=== PATIENT | female | born 1950 | race Caucasian/White ===

== ENCOUNTER → 2019-12-16 09:07 | Outpatient (CLI) | payer MEDICARE, SELFPAY ==
--- NOTE | ~2019-12-16 | MM_ITS ---
EXAMINATION: MM diagnostic ziggy BI w antonio HISTORY: History of left breast cancer TECHNIQUE: Craniocaudal, mediolateral, and mediolateral oblique 3-D tomosynthesis images of the breas ts were performed and synthetic 2-D images were generated. CAD analysis was submitted and interpreted . COMPARISON: 05/19/2019, 11/13/2018, 11/09/2018 BREAST PARENCHYMAL COMPOSITION: The breasts are heterogeneously dense, which may obscure small masses . FINDINGS: Scattered benign-appearing calcifications are present. There are stable lumpectomy changes in the upper outer quadrant of the left breast. No suspicious mass, calcification, or architectural d istortion are identified. There has been no suspicious interval change. IMPRESSION: 1. Stable lumpectomy changes in the upper outer quadrant of the left breast without mammographic evid ence of malignancy. 2. Recommend routine screening mammography in one year. BI-RADS Category 2: Benign finding(s). Reviewed, dictated and finalized at location A. IMPRESSION: 1. Stable lumpectomy changes in the upper outer quadrant of the left breast wit hout mammographic evidence of malignancy. 2. Recommend routine screening mammography in one year. BI-RADS Category 2: Benign finding(s).
== END ==
DX: C50.412 Malignant neoplasm of upper-outer quadrant of left female breast (principal); Z98.890 Other specified postprocedural states
CPT/HCPCS: 77062; 77066; G0279

== ENCOUNTER → 2020-06-21 09:11 | Outpatient (CLI) | payer MEDICARE, SELFPAY ==
--- NOTE | ~2020-06-21 | MM_ITS ---
EXAMINATION: MM diagnostic ziggy LT w antonio HISTORY: Breast cancer TECHNIQUE: Additional 3-D tomosynthesis images of the left breast were performed and synthetic 2-D im ages were generated. CAD analysis was submitted and interpreted. COMPARISON: Comparison to multiple prior studies sequentially, with oldest reviewed study dated 06/2018. BREAST PARENCHYMAL COMPOSITION: The breasts are heterogenously dense, which may obscure small masses FINDINGS: . Surgical change present in the upper outer quadrant of the left breast. No new masses, ca lcifications or architectural distortion to suggest malignancy. There are scattered benign left breas t calcifications. IMPRESSION: 1. Stable left mammogram without evidence for malignancy. 2. Routine yearly screening mammogram and regular clinical breast examination are recommended. BI-RADS CATEGORY 2 - BENIGN FINDINGS Reviewed, dictated and finalized at location A. 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 Stable left mammogram without evidence for malignancy. 2. Routine yearly screening mammogram and regular clinical breast examination a re recommended. BI-RADS CATEGORY 2 - BENIGN FINDINGS
== END ==
PROVIDERS: PCP Student in an Organized Health Care Education/Training Program
DX: C50.412 Malignant neoplasm of upper-outer quadrant of left female breast (principal)
CPT/HCPCS: 77061; 77065; G0279

== ENCOUNTER → 2021-01-14 08:39 | Outpatient (CLI) | payer MEDICARE, SELFPAY ==
--- NOTE | ~2021-01-14 | MM_ITS ---
EXAMINATION: MM diagnostic ziggy BI w antonio HISTORY: Personal history of breast cancer TECHNIQUE: Additional 3-D tomosynthesis images of the breasts were performed and synthetic 2-D images were generated. CAD analysis was submitted and interpreted. COMPARISON: Comparison to multiple prior studies sequentially, with oldest reviewed study dated 10/2018. BREAST PARENCHYMAL COMPOSITION: The breasts are heterogeneously dense, which may obscure small masses . FINDINGS: There are surgical changes upper outer quadrant of the left breast, consistent with previou s lumpectomy. There are no new masses, calcifications or architectural distortion in either breast to suggest malignancy. IMPRESSION: 1. No mammographic evidence for malignancy in either breast. 2. Routine yearly screening mammogram and regular clinical breast examination are recommended. BI-RADS Category 2: Benign finding(s). Reviewed, dictated and finalized at location A. IMPRESSION: 1. No mammographic evidence for malignancy in either breast. 2. Routine yearly screening mammogram and regular clinical breast examination a re recommended. BI-RADS Category 2: Benign finding(s).
== END ==
PROVIDERS: PCP Student in an Organized Health Care Education/Training Program
DX: Z85.3 Personal history of malignant neoplasm of breast (principal)
CPT/HCPCS: 77062; 77066; G0279

== ENCOUNTER 2021-02-04 21:55 | Observation (INO) | payer MEDICARE, SELFPAY ==
--- NOTE | ~2021-02-04 | CT_ITS ---
EXAMINATION: CT brain wo con DATE: 02/04/2021 23:07 INDICATION: Altered mental state. Altered level of consciousness. TECHNIQUE: Computed tomography (CT) of the head was performed without intravenous contrast. The mA wa s adjusted according to patient size. Iterative reconstruction technique was employed. Exam dose: 60 5.33 mGy-cm total exam DLP. COMPARISON: None FINDINGS: Bilateral prominent vertebral artery calcification. Bilateral carotid siphon internal carot id artery calcification. There is nonspecific diminished attenuation of the cerebral white matter, likely due to chronic small vessel ischemic changes. No intracranial mass lesion or hemorrhage or cerebrovascular accident is evident. No midline shift or mass effect. Moderately prominent cerebral cortical volume loss. No subdural or epidural hematoma. No skull fracture or bone destruction. IMPRESSION: Cerebral atherosclerosis and chronic small vessel ischemic changes of the cerebral white matter No acute intracranial finding Reviewed, dictated and finalized at Location A. Reviewed, dictated and finalized at location A.
--- NOTE | ~2021-02-04 | XR_ITS ---
XR chest 1V portable DATE: 02/04/2021 22:59 INDICATION: Altered mental state. Hypertension. TECHNIQUE: Portable supine AP chest on 02/04/2021 at 2255 hours COMPARISON: None FINDINGS: Normal heart size. Aortic calcification and unfolding. No hilar or mediastinal enlargement. No pulmonary infiltrate or consolidation, pleural effusion or pulmonary vascular congestion or pneumo thorax. Degenerative spurring of the thoracic and lumbar spine. Surgical clips overlie the upper outer left breast area. IMPRESSION: No active cardiopulmonary disease Aortic atherosclerosis Reviewed, dictated and finalized at location A.
[2021-02-04 22:02] VITALS: BP 139/91; PULSE 114; RESP 24; TEMP 36.2; O2SAT 100
[2021-02-04 22:11] LABS: Glucose Point of Care 261 mg/dl (65-105)
--- NOTE | 2021-02-04 22:14 | ECG_ITS ---
Measurements Intervals [address] [place] Rate: 125 P: 61 NV: 141 QRS: -24 QRSD: 67 T: 74 QT: 388 QTc: 560 Interpretive Statements SINUS TACHYCARDIA BORDERLINE T WAVE ABNORMALITY- DIFFUSE LEADS BASELINE ARTIFACT- I, II, AVR, AVL, AVF, V1 ABNORMAL ECG Electronically Signed On 02-05-2021 7:00:38 CDT by Mikhail Toro D.O.
[2021-02-04 22:49] LABS: Basophils Absolute Auto 0.1 K/mm3 (0.0-0.1); Basophils Percent Auto 0.4 % (0.2-1.2); Eosinophils Percent Auto 0.2 % (0-4.4); Hemoglobin 14.6 g/dL (12.0-15.0); Immature Granulocyte Absolute 0.13 K/mm3 (0.00-0.031); Immature Granulocyte Percent A 0.9 % (0-0.5); Lymphocytes Absolute Auto 1.23 K/mm3 (0.9-3.2); Lymphocytes Percent Auto 8.9 % (18.3-44.2); Mean Corpuscular HGB Conc 31.7 g/dl (32-36); Mean Corpuscular Hemoglobin 29.4 pg (26-34); Mean Corpuscular Volume 92.7 fl (80-100); Mean Platelet Volume 9.1 fl (7.4-10.4); Monocytes Percent Auto 7.3 % (2.6-8.5); Neutrophils Absolute Auto 11.4 K/mm3 (1.3-6.7); Neutrophils Percent Auto 82.3 % (45.5-73.1); Platelet Count Result 363 k/mm3 (150-375); Red Blood Count 4.96 M/mm3 (4.2-5.4); Red Cell Distribution Width 16.1 % (11.5-14.5); White Blood Count 13.9 K/mm3 (4.5-10.0)
[2021-02-04 22:52] LABS: Add Urine Microscopic? YES; Appearance Urine Clear (Clear); Bilirubin Urine Negative (Negative); Blood Urine Negative (Negative); Color Urine Yellow (Yellow); Glucose Urine UA 3+ mg/dL (Negative); Ketones Urine 1+ mg/dL (Negative); Leukocyte Esterase Ur Negative LEU/UL (Negative); Mucus Urine Rare /lpf; Nitrate Urine Negative (Negative); Protein Urine 3+ mg/dL (Negative); Specific Grav Ur 1.015 (1.001-1.035); Squamous Epithelial Cell Urine Rare /hpf (Few); Urobilinogen Urine Negative mg/dL (<2.0); WBC Urine 0-3 /hpf
--- NOTE | 2021-02-04 22:53 | ED.AMS ---
HPI - Altered Mental Status General Chief Complaint: Altered Mental Status Stated Complaint: ams Time Seen by Provider: 02/04/21 22:44 Source: RN notes reviewed History of Present Illness HPI narrative: Patient presents to emergency department from home via EMS for altered mental status. History is per the patient's who is present patient has been states that the patient had laid down this evening to go to sleep and then he was unable to wake her he states that the patient had been confused when he tried to awaken her and would open her eyes but would not speak to him and only slapped his hand patient currently is laying in bed and is unresponsive to verbal stimuli but will say ouch to painful stimuli/my hand states the patient has a history of bullous pemphigoid as well as MGUS and is followed by [facility] the patient is on chronic steroids of 10 mg a day states the patient is also diabetic states the patient has only intermittently been taking her medicine for the past 3 days the patient has a history of getting shingles in the left side of her face in November that time she been on 2 courses of acyclovir and had been followed by ophthalmology at [facility] but it had no definitive progression into the eye he states that the patient continues to have pain over the area of shingles that she had had and had initially been placed on Tylenol with codeine earlier this month but is now been on oxycodone he states that she last took the medication that he is aware of this morning he denies the patient having any fevers or chills or any other recent illness he states the patient was complaining of an increased headache today Related Data Home Medications Medication Instructions Recorded Confirmed amlodipine 10 mg PO DAILY 02/05/21 02/05/21 anastrozole 1 mg PO DAILY 02/05/21 02/05/21 clobetasol 1 applic TOPICAL DAILY 02/05/21 02/05/21 fenofibrate 160 mg PO DAILY 02/05/21 02/05/21 gabapentin 300 mg PO TID 02/05/21 02/05/21 hydroxyzine HCl 25 mg PO DAILY 02/05/21 02/05/21 lansoprazole 30 mg PO DAILY 02/05/21 02/05/21 levothyroxine [Synthroid] 75 mcg PO DAILY 02/05/21 02/05/21 metoprolol tartrate 100 mg PO BID 02/05/21 02/05/21 prednisone 10 mg PO DAILY 02/05/21 02/05/21 rosuvastatin 40 mg PO DAILY 02/05/21 02/05/21 Allergies Allergy/AdvReac Type Severity Reaction Status Date / Time No Known Allergies Allergy Unverified 08/27/19 09:44 Review of Systems Review of Systems: ROS unobtainable: Yes unobtainable due to medical condition PMFSH Past Medical History Medical History (Updated 02/05/21 @ 07:07 by Gary Pugh DO) Breast cancer Bullous pemphigoid Diabetes mellitus Essential hypertension Hypothyroidism MGUS (monoclonal gammopathy of unknown significance) Shingles Small bowel obstruction Multiple small-bowel obstructions over the course of 20+ years. Surgical History Surgical History (Updated 02/05/21 @ 07:07 by Trista Jacome DO) History of exploratory laparotomy (~2009) Due to small-bowel obstruction History of lumpectomy of right breast Social History Social History (Updated 02/04/21 @ 23:46 by Gary Pugh DO) Smoking status: Never smoker Alcohol intake: unknown Substance use: unknown Gender identity (if verbalized by the patient): Female Spiritual care concerns: No Exam Narrative: APPEARANCE: Laying in bed with eyes closed unresponsive to verbal stimuli with painful stimuli will slap my hand to state ouch moving all extremities in bed EYES: PERRL HEENT: Normocephalic, atraumatic, oral mucosa dry RESPIRATORY: No respiratory distress Clear to auscultation bilaterally with no rhonchi wheezing or rales. CARDIOVASCULAR: Tachycardic and regular without murmurs rubs or gallops. ABDOMINAL: Soft, nontender, nondistended, no rebound or guarding MUSCULOSKELETAl: Moves all extremities. No clubbing, cyanosis or edema. NEURO: Unresponsive to verbal stimuli will respond to p
[2021-02-04] MEDS: SODIUM CHLORIDE 0.9% IV 1,000 ML 999 ML IV CONT ×2 (23:03→23:46)
[2021-02-04] MEDS: ONDANSETRON INJ 4 MG/2 ML VIAL (23:03)
[2021-02-04 23:04] LABS: INR 0.9; Prothrombin Time 11.8 Seconds (11.1-14.7)
[2021-02-04 23:13] LABS: Alanine Aminotransferase 40 U/L (4-35); Albumin Level 4.7 g/dL (3.5-5.1); Alkaline Phosphatase 178 U/L (38-126); Anion Gap 17 mmol/L (8-16); Aspartate Amino Transferase 49 U/L (14-36); Bilirubin,Total 1.4 mg/dL (0.2-1.3); Blood Urea Nitrogen 13 mg/dL (7-17); Carbon Dioxide 21 mmol/L (22-30); Chloride 94 mmol/L (98-107); Estimated CRCL calculation 63 ml/min; Estimated Glomerular Filt Rate > 60; Glucose 245 mg/dL (65-110); Potassium 3.2 mmol/L (3.4-5.0); Sodium 132 mmol/L (137-145)
[2021-02-04 23:33] LABS: Alveolar/Arterial O2 Gradient 30.8 mmHg; Base Excess ABG 0.5 mEq/l (+/-2.0); Fractional Inspired Oxygen 21 %; Oxygen Content ABG 18.6 %vol (16.0-22.0); Oxygen Saturation ABG 98.7 % (95.0-100.0); Oxyhemoglobin 97.2 % THb (90.0-100.0); PO2 ABG 99.9 mmHg (80.0-100.0); PO2 FiO2 Ratio Arterial Blood 4.76 %; Total Hemoglobin 13.5 g/dL (12.0-18.0)
[2021-02-04 23:34] LABS: PCO2 ABG 15.9 mmHg (35.0-45.0); pH ABG 7.672 (7.350-7.450)
[2021-02-04 23:35] LABS: Device ROOM AIR; Modified Allen's Test Pass; Site Drawn LEFT RADIAL
[2021-02-04] MEDS: NALOXONE HCL 0.4 MG/ML VIAL IV PUSH (23:46)
[2021-02-04 23:47] VITALS: BP 187/101; PULSE 133; RESP 25; TEMP 36.8; O2SAT 97
[2021-02-04 23:52] LABS: Lactic Acid Reflex 5.4 mmol/L (0.7-2.1)
[2021-02-05] VITALS (20 sets, daily range): BP systolic 134–200; BP diastolic 87–118; PULSE 116–150; RESP 19–28; TEMP 38.6–39.5; O2SAT 94–99; BMI 19.9
[2021-02-05 00:02] LABS: Beta-Hydroxybutyrate/Acetoacetate 1.62 mmol/L (0.02-0.27)
[2021-02-05] MEDS: LORazepam INJ (*CRX) 2 MG/ML VIAL (01:07)
[2021-02-05] MEDS: AMPICILLIN 2 GM/NS 100 ML 2 GM/100 ML BAG IVPB ×2 (01:51→06:47)
[2021-02-05] MEDS: LORazepam INJ (*CRX) 2 MG/ML VIAL 0.5 MG IV PUSH (02:03)
[2021-02-05 02:30] LABS: Reflex Lactic Acid Yes or No Add Lactic
--- NOTE | 2021-02-05 02:34 | PM.IMHP ---
H&P: HPI History of Present Illness Date/Time: 02/05/21 02:34 Chief Complaint: not talking or following commands Narrative: H&P/transfer summary 70-year-old female with a past medical history of shingles, monoclonal gammopathy of uncertain significance, hypothyroidism, diabetes and hypertension who was brought in to the ER via EMS due to sudden onset of altered mental status. Source of information is report. The patient has bolus pemphigus and had a flare of her pemphigus in early November at which time she was placed on high-dose steroid therapy and CellCept and antibiotics. Her pemphigus resolved quickly but after the immunosuppressive therapy she then developed shingles to her left forehead and eye. She went to Ophthalmology and received acyclovir, erythromycin ointment and pain medications. The patient has chronic sensitive stomach. With the addition of all these medications the patient had increased nausea and had some bouts of diarrhea. She subsequently lost down from 130 lb down to 102 lb. Last month her CellCept was discontinued and she was started on Dupixent. She had her last dose of Dupixent on Sunday. Her steroids have been gradually tapered down and were just decreased down to 10 mg daily. With cessation of the CellCept the patient's appetite had improved and she had actually been starting to gain some weight up to 107 lb. Evidently while the patient was feeling ill she was not taking the majority of her home meds. She had not been taking her diabetic medications, hypothyroid medications, or antihypertensives. Her reports that she was gradually adding some medications back in. The patient had been feeling better recently and felt so good that she was able to go to the [facility] on the . The patient had been continuing a have intermittent headaches ever since she developed herpes zoster. She has continued to have intermittent headaches ever since he developed zoster but her headaches have been manageable on the Percocet 1 tablet 3 to 4 times a day. However, after she returned home last evening her pain was worse than usual. She woke up on the the headache had worsened. It was so bad that she actually had to take 2 tablets of Percocet instead of her usual 1 tablet. As the day progressed her headache seemed to worsen. She also had no appetite and had been unable to eat anything since the evening before. She developed some nausea in the mid afternoon and had several episodes of emesis in the evening hours. With her last episode of emesis the patient sat up in bed and vomited all over the bed. She was unable to make it to the waste basket. When her tried to get her to moved to clean her up the patient was unarousable. She had stopped talking and was no longer following commands. Her called EMS and she was brought to our facility. She was initially afebrile on presentation but spiked a fever up to 103.3 within 4 hours of arrival. Patient was also found to be hyperglycemic, at have and anion gap metabolic acidosis, sub therapeutic treatment of hypothyroidism, severe lactic acidosis, hypokalemia, and hypo magnesemia. In the ER, she was restless and writhing in the bed. She was pulling off equipment. The patient was noted to be keeping her legs curled to her chest. She was holding her neck is stiff. On exam the patient seemed to have intermittent side to side nystagmus. 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 There were no beds available at [facility] for the for stable future in the patient was admitted to our ICU. Discussion was held whether to do lumbar puncture in the ER wait for Interventional Radiology and decision was made to await IR intervention for more likely of success with lumbar puncture. T
[2021-02-05 03:01] LABS: Free T4 Free Thyroxine Reflex 0.67 ng/dL (0.78-2.19)
[2021-02-05] MEDS: ACYCLOVIR SODIUM IVPB 800 MG in DEXTROSE 5% IN WATER 250 ML 266 MG IVPB (03:10)
[2021-02-05 03:50] LABS: EDCOVIDSCREEN Negative (Negative)
[2021-02-05] MEDS: MAGNESIUM SULF 4 GM/WATER100ML 4 GM/100 ML BAG IVPB (04:10)
--- NOTE | 2021-02-05 04:43 | ADMGEN ---
This patient, Josephine Kong, was admitted to Intensive Care Unit-10 at 0343. Patient/family oriented to hospital policies and general routines including ID bracelet, bed and alarms, visiting hours, pain management, procedures, bathroom and other care routines, personal items, smoking policy, room service/diet, and visiting hours. Information on how to activate the Rapid Response Team has been discussed. Patient/Family are encouraged to report perceived risks to care and to ask questions if they do not understand what they are told or what they should do.
[2021-02-05 04:59] LABS: Lactic Acid 4.6 mmol/L (0.7-2.1)
[2021-02-05 05:21] LABS: CRP 1.9 mg/dL (<1.0)
[2021-02-05] MEDS: SODIUM CHLORIDE 0.9% IV 1,000 ML 125 ML IV CONT (06:46)
--- NOTE | 2021-02-05 09:07 | PC.NURSE ---
This patient, Josephine Kong, was transferred to [oc ] on 02/05/21 at 0900 via [facility]. Pt had no belongings. Report given to [ oc rn, receiving facitity notified of departure]. Appropriate documentation sent with patient.
[2021-02-05 22:45] LABS: SARS-CoV-2 RNA PCR Negative
== END 2021-02-05 08:55 | disposition short-term general hospital (02) ==
LOC: ANHED 22:56 → ANHICU 02-05 01:33
PROVIDERS: Admitting Provider Internal Medicine; Emergency Provider Emergency Medicine; PCP Student in an Organized Health Care Education/Training Program; Visit Provider Internal Medicine
DX: G03.9 Meningitis, unspecified (principal); A41.9 Sepsis, unspecified organism; R65.20 Severe sepsis without septic shock; B02.9 Zoster without complications; R41.82 Altered mental status, unspecified; R00.0 Tachycardia, unspecified; E03.9 Hypothyroidism, unspecified; E11.9 Type 2 diabetes mellitus without complications; E83.42 Hypomagnesemia; E87.2 Acidosis; I10 Essential (primary) hypertension; D47.2 Monoclonal gammopathy; R50.9 Fever, unspecified; E87.6 Hypokalemia; Z20.822 Contact with and (suspected) exposure to COVID-19; Z85.3 Personal history of malignant neoplasm of breast; Z87.891 Personal history of nicotine dependence; Z66 Do not resuscitate; Z91.14 Patient's other noncompliance with medication regimen
CPT/HCPCS: 36415; 36600; 70450; 71045; 80053; 81001; 82010; 82805; 82948; 83605; 83735; 84439; 84443; 85025; 85610; 85730; 86140; 87040; 87426; 93005; 96361; 96365; 96366; 96367; 96368; 96375; 96376; 99285; C9803; G0378; J0131; J0133; J0290; J0696; J1100; J2060; J2310; J2405; J3370; J3475; J3480; J7030; J7060; U0003; U0005

== ENCOUNTER → 2021-07-19 14:11 | Outpatient (CLI) | payer MEDICARE, SELFPAY ==
--- NOTE | ~2021-07-19 | MMUS_ITS ---
EXAMINATION: MM diagnostic ziggy LT w antonio, US breast LT limited HISTORY: Palpable left breast lump. History of breast cancer. TECHNIQUE: Additional 3-D tomosynthesis images of the left breast were performed and synthetic 2-D im ages were generated. CAD analysis was submitted and interpreted. High resolution Limited left breast ultrasound was performed. COMPARISON: Comparison to multiple prior studies sequentially, with oldest reviewed study dated 06/2018. BREAST PARENCHYMAL COMPOSITION: Breast composed of scattered areas of fibroglandular density. FINDINGS: MAMMOGRAPHIC FINDINGS: There are no suspicious masses in the area of palpable concern. There is a new cluster of indetermina te calcifications in this area. There are adjacent surgical clips. ULTRASOUND: Limited left breast ultrasound: At 1:00, 8 cm from the nipple in the area of palpable concern there i s an irregular heterogeneous mass measuring 9 x 7 x 6 mm with associated calcifications. IMPRESSION: 1. Left breast mass at 1:00, 8 cm from the nipple in the area palpable concern measuring up to 9 mm. There are associated calcifications with posterior attenuation. 2. Ultrasound-guided left breast biopsy recommended. BI-RADS category 4, suspicious findings. Reviewed, dictated and finalized at location A. 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 Left breast mass at 1:00, 8 cm from the nipple in the area palpable concern measuring up to 9 mm. There are associated calcifications with posterior attenu ation. 2. Ultrasound-guided left breast biopsy recommended. BI-RADS category 4, suspicious findings.
== END ==
PROVIDERS: PCP Student in an Organized Health Care Education/Training Program
DX: C50.412 Malignant neoplasm of upper-outer quadrant of left female breast (principal); N63.21 Unspecified lump in the left breast, upper outer quadrant; R92.8 Other abnormal and inconclusive findings on diagnostic imaging of breast
CPT/HCPCS: 76642; 77061; 77065; G0279

== ENCOUNTER → 2022-04-26 11:49 | Outpatient (CLI) | payer MEDICARE, SELFPAY ==
--- NOTE | ~2022-04-26 | DEXA_ITS ---
Bone Density Report Name: SANYA HANSON Age: 71 Sex: Female Ethnicity: White Date of : 1950 Indication: osteopenia; height loss; prior fracture; postmenopausal Referring Provider: Pierre, Akhil Study: Bone densitometry was performed. Exam Date: April 26, 2022 Accession number: [id number] Bone Density: Region BMD T-score Z-score Classification AP Spine (L1-L4) 0.987 -0.5 1.5 Normal Femoral Neck (Left) 0.630 -2.0 -0.2 Osteopenia Total Hip (Left) 0.701 -2.0 -0.5 Osteopenia Femoral Neck (Right) 0.642 -1.9 -0.1 Osteopenia Total Hip (Right) 0.712 -1.9 -0.4 Osteopenia Total Hip Mean 0.707 -2.0 -0.5 Osteopenia World Health Organization criteria for BMD impression classify patients as: Normal (T-score at or above -1.0), Osteopenia (T-score between -1.0 and -2.5), or Osteoporosis (T-score at or below -2.5). 10-year Fracture Risk(1): Major Osteoporotic Fracture 18% Hip Fracture 3.2% Reported Risk Factors: [place] (), Neck BMD=0.630, BMI=26.2, previous fracture (1) FRAX(R) Version 3.08. Fracture probability calculated for an untreated patient. Fracture probability may be lower if the patient has received treatment. Previous Exams: Region Exam Age BMD T-score BMD Change BMD Change Date g/cm2 vs Baseline vs Previous AP Spine(L1-L4) 04/26/2022 71 0.987 -0.5 0.049* 0.049* 11/09/2018 68 0.938 -1.0 Total Hip(Left) 04/26/2022 71 0.701 -2.0 -0.035* -0.035* 11/09/2018 68 0.736 -1.7 Total Hip(Right) 04/26/2022 71 0.712 -1.9 -0.019 -0.019 11/09/2018 68 0.731 -1.7 *Denotes significance at 95% confidence level, LSC for AP Spine = 0.022 g/cm2, LSC for Total Hip = 0.027 g/cm2 Clinical Information Provided by Patient: Has had a low trauma fracture Has used the following medications: Calcium Patient maximum height was 64 Menopause Age: 61 Drinks caffeinated beverages Onset of menses at age 16 Number of children 2 Impression: The patient has low bone mass, based on the Left Total Hip T-score. The patient has an estimated ten-year risk of hip fracture of 3.2% and an estimated ten-year risk of major fracture of 18%, based on the WHO FRAX algorithm. The patient has risk factors, including: previous fracture. The BMD for the Total Hip(Left) decreased, changing by -0.035 since the last DXA exam. Discussion: BONE DENSITY IS LOW AT ONE OR MORE SKELETAL SITES. THE PATIE
== END ==
PROVIDERS: PCP Student in an Organized Health Care Education/Training Program; Visit Provider Student in an Organized Health Care Education/Training Program
DX: M85.852 Other specified disorders of bone density and structure, left thigh (principal); M85.851 Other specified disorders of bone density and structure, right thigh
CPT/HCPCS: 77080

== ENCOUNTER → 2022-04-26 11:51 | Outpatient (CLI) | payer MEDICARE, SELFPAY ==
--- NOTE | ~2022-04-26 | US_ITS ---
EXAMINATION: US retroperitoneal comp DATE: 04/26/2022 12:27 INDICATION: Hypercalcemia TECHNIQUE: Multiple grayscale and Doppler ultrasound images of the kidneys were obtained. COMPARISON: None. FINDINGS: The right kidney measures 10.6 x 4.3 x 5.3 cm and contains a 3.6 cm cyst. The left kidney m easures 10.2 x 5.3 x 4.3 cm. The kidneys demonstrate normal parenchymal echogenicity. There is no hyd ronephrosis. The bladder is normal. IMPRESSION: 1. Unremarkable kidneys without hydronephrosis. Reviewed, dictated and finalized at location F. 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
== END ==
PROVIDERS: PCP Student in an Organized Health Care Education/Training Program
DX: E83.52 Hypercalcemia (principal); N17.9 Acute kidney failure, unspecified
CPT/HCPCS: 76770

== ENCOUNTER 2022-05-25 01:57 | Day surgery (SDC) | payer MEDICARE, SELFPAY ==
[2022-05-17 10:17] VITALS: BMI 25.1
--- NOTE | 2022-05-25 08:11 | WPDANESEPPF ---
Anes - Initial Pre Proc Eval Procedure: Operation Date: 05/25/22 09:30 Proposed Procedures p Esophagogastroduodenoscopy & Colonoscopy - Kevyn Rodriguez MD Date/Time: 05/25/22 08:11 Surgeon: Kevyn Rodriguez MD Pre Op Diagnosis: Iron Def, Anemia Patient Data Age: 71 Gender: F Height: 1.63 m Weight: 66.4 kg Allergies Allergy/AdvReac Type Severity Reaction Status Date / Time amoxicillin [From Augmentin] Allergy Intermediate Diarrhea Verified 05/25/22 08:41 clavulanic acid Allergy Intermediate Diarrhea Verified 05/25/22 08:41 [From Augmentin] gemfibrozil Allergy Intermediate Rash Verified 05/25/22 08:41 hydrochlorothiazide Allergy Intermediate Rash Verified 05/25/22 08:41 hydrocodone Allergy Intermediate Dizziness Verified 05/25/22 08:41 irbesartan Allergy Intermediate Hives Verified 05/25/22 08:41 lisinopril Allergy Intermediate Dizziness Verified 05/25/22 08:41 niacinamide Allergy Intermediate Rash Verified 05/25/22 08:41 Home Medications Medication Instructions Recorded Confirmed Type amlodipine 10 mg tablet 10 mg PO DAILY 02/05/21 05/17/22 History anastrozole 1 mg tablet 1 mg PO DAILY 02/05/21 05/17/22 History clobetasol 0.05 % topical ointment 1 applic topical DAILY PRN Itching 02/05/21 05/17/22 History fenofibrate 160 mg tablet 160 mg PO DAILY 02/05/21 05/17/22 History hydroxyzine HCl 25 mg tablet 25 mg PO HS 02/05/21 05/17/22 History lansoprazole 30 mg capsule,delayed 30 mg PO DAILY 02/05/21 05/17/22 History release rosuvastatin 40 mg tablet 40 mg PO DAILY 02/05/21 05/17/22 History carbamazepine 200 mg 200 mg PO Q12H 05/01/22 05/17/22 History tablet,extended release,12 hr (Tegretol XR) erythromycin 2 % topical solution 1 ml topical DAILY PRN Itching 05/01/22 05/25/22 History glipizide 5 mg tablet 10 mg PO DAILY 05/01/22 05/17/22 History ondansetron HCl 4 mg tablet 4 mg PO Q8H PRN Nausea 05/01/22 05/17/22 History pregabalin 150 mg capsule (Lyrica) 300 mg PO BID 05/01/22 05/17/22 History silver sulfadiazine 1 % topical 1 applic topical DAILY PRN Itching 05/01/22 05/17/22 History cream tacrolimus 0.1 % topical ointment 1 applic topical BID PRN Itching 05/01/22 05/17/22 History levothyroxine 100 mcg tablet 100 mcg PO DAILY 05/17/22 05/17/22 History meclizine 12.5 mg tablet 12.5 mg PO TID PRN Dizziness 05/17/22 05/17/22 History metoprolol tartrate 25 mg tablet 25 mg PO BID 05/17/22 05/17/22 History oxycodone-acetaminophen 5 mg-325 1 tablet PO BID 05/17/22 05/17/22 History mg tablet Patient hx anesthesia problems: none Family hx anesthesia problems: none Results Review: All pre-operative results and documents have been reviewed as part of the pre-operative evaluation. [facility] Past Medical History Medical History (Updated 05/25/22 @ 08:12 by Mac Denise MD) Atrial fibrillation Breast cancer Bullous pemphigoid Diabetes mellitus Essential hypertension Hyperlipidemia Hypothyroidism Hypothyroidism Iron deficiency anemia MGUS (monoclonal gammopathy of unknown significance) Shingles Small bowel obstruction Multiple small-bowel obstructions over the course of 20+ years. Surgical History Surgical History History of exploratory laparotomy (~2009) Due to small-bowel obstruction History of lumpectomy of right breast Hx of cholecystectomy Family History Family History Mother , in her 90s Dementia Father , at age 72 Coronary artery disease Hx of CABG Social History Social History Social History: She lives in [place] with her of 44 years. They have 2 children. She is a former smoker but ?did not smoke that much?. She she does not drink alcohol. 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
[2022-05-25 08:43] VITALS: BP 129/80; PULSE 79; RESP 18; TEMP 36.2; O2SAT 100
[2022-05-25] MEDS: LACTATED RINGERS 1,000 ML 150 ML IV CONT (08:56)
--- NOTE | 2022-05-25 08:59 | WPDHPUPDATE1 ---
History and Physical Update Update Date/Time: 05/25/22 08:59 History and Physical has been reviewed, including an updated exam of the patient. There are NO changes in the patient's condition. Risks, benefits, and alternatives have been discussed and questions answered. Patient agrees to proceed with procedure.
[2022-05-25 09:02] LABS: Glucose Point of Care 187 mg/dl (65-105)
--- NOTE | 2022-05-25 09:34 | SUR.OPER ---
EGD ended at 932. Colonoscopy began at 937.
[2022-05-25 09:56] VITALS: BP 117/60; PULSE 69; RESP 19; O2SAT 99
[2022-05-25 10:06] VITALS: BP 143/83; PULSE 68; RESP 16; O2SAT 100
[2022-05-25 10:16] VITALS: BP 159/77; PULSE 67; RESP 17; O2SAT 98
== END 2022-05-25 10:25 | disposition home or self-care (01) ==
PROVIDERS: PCP Student in an Organized Health Care Education/Training Program; Visit Provider Internal Medicine Gastroenterology
PROC: 0DJ08ZZ Inspection of Upper Intestinal Tract, Via Natural or Artificial Opening Endoscopic (ICD-10-PCS; CPT 43235; principal; 2022-05-25 09:30)
DX: D50.9 Iron deficiency anemia, unspecified (principal); D12.5 Benign neoplasm of sigmoid colon; D12.2 Benign neoplasm of ascending colon; K57.30 Diverticulosis of large intestine without perforation or abscess without bleeding; K64.8 Other hemorrhoids; I48.91 Unspecified atrial fibrillation; E11.9 Type 2 diabetes mellitus without complications; I10 Essential (primary) hypertension; E03.9 Hypothyroidism, unspecified; D47.2 Monoclonal gammopathy; L12.0 Bullous pemphigoid; Z85.3 Personal history of malignant neoplasm of breast; Z79.811 Long term (current) use of aromatase inhibitors
CPT/HCPCS: 45385; 43235; 82948; 88305; J2704; J7120

== ENCOUNTER 2022-08-22 15:17 | Emergency (ER) | payer MEDICARE, SELFPAY ==
--- NOTE | ~2022-08-22 | XR_ITS ---
EXAMINATION: XR chest 2V Exam Date/Time: 08/22/2022 17:05 CDT HISTORY: WEAKNESS, SOB, UNKNOWN ALLERGIC REACTION Comparison: 02/04/2021. RESULT: Lines, tubes, and devices: Surgical clips over the left lateral breast. Lungs and pleura: Increased mid and lower right lung reticulonodular opacities. Diffuse senescent ch anges. Cardiomediastinal silhouette: Stable. Aortic atherosclerosis. Other: No acute osseous or upper abdominal finding. Mild anterior wedge deformity at T12, chronic. IMPRESSION: Right mid and lower lung opacities may represent bronchiolitis, as can be seen with atypical infectio n, aspiration, and small airways disease. Reviewed, dictated and finalized at location K. IMPRESSION: Right mid and lower lung opacities may represent bronchiolitis, as can be seen with atypical infection, aspiration, and small airways disease.
[2022-08-22 15:35] VITALS: BP 102/58; PULSE 95; RESP 14; O2SAT 94
--- NOTE | 2022-08-22 16:11 | ECG_ITS ---
Measurements Intervals [place] Rate: 97 P: 31 OR: 157 QRS: -31 QRSD: 81 T: 57 QT: 368 QTc: 469 Interpretive Statements SINUS RHYTHM LEFT AXIS DEVIATION POOR R WAVE PROGRESSION, ANTERIOR LEADS BORDERLINE ST-T WAVE ABNORMALITY- HIGH LATERAL LEADS BASELINE ARTIFACT- I, II, AVR, AVL BORDERLINE ECG COMPARED TO ECG 02/04/2021 22:36:06 SINUS RHYTHM NOW PRESENT LEFT-AXIS DEVIATION NOW PRESENT Electronically Signed On 08-22-2022 16:58:01 CDT by Mikhail Toro D.O.
[2022-08-22 16:25] LABS: Basophils Absolute Auto 0.1 K/mm3 (0.0-0.1); Basophils Percent Auto 0.5 % (0.2-1.2); Eosinophils Absolute Auto 0.1 K/mm3 (0-0.3); Hemoglobin 12.3 g/dL (12.0-15.0); Immature Granulocyte Absolute 0.04 K/mm3 (0.00-0.031); Immature Granulocyte Percent A 0.3 % (0-0.5); Lymphocytes Absolute Auto 1.59 K/mm3 (0.9-3.2); Lymphocytes Percent Auto 12.1 % (18.3-44.2); Mean Corpuscular HGB Conc 32.4 g/dl (32-36); Mean Corpuscular Hemoglobin 29.1 pg (26-34); Mean Corpuscular Volume 89.8 fl (80-100); Mean Platelet Volume 10.4 fl (7.4-10.4); Monocytes Absolute Auto 0.9 K/mm3 (0.1-0.6); Monocytes Percent Auto 6.9 % (2.6-8.5); Neutrophils Absolute Auto 10.4 K/mm3 (1.3-6.7); Neutrophils Percent Auto 79.2 % (45.5-73.1); Platelet Count Result 241 k/mm3 (150-375); Red Blood Count 4.23 M/mm3 (4.2-5.4); Red Cell Distribution Width 14.7 % (11.5-14.5); White Blood Count 13.2 K/mm3 (4.5-10.0)
[2022-08-22 16:34] LABS: Alanine Aminotransferase 30 U/L (6-35); Albumin Level 4.1 g/dL (3.5-5.1); Alkaline Phosphatase 135 U/L (38-126); Anion Gap 6 mmol/L (8-16); Aspartate Amino Transferase 73 U/L (14-36); Bilirubin,Total 1.1 mg/dL (0.2-1.3); Blood Urea Nitrogen 23 mg/dL (7-17); Calcium 9.4 mg/dL (8.4-10.2); Carbon Dioxide 27 mmol/L (22-30); Chloride 98 mmol/L (98-107); Estimated CRCL calculation 45 ml/min; Estimated Glomerular Filt Rate 55; Glucose 160 mg/dL (65-110); Potassium 3.8 mmol/L (3.4-5.0); Sodium 131 mmol/L (137-145)
--- NOTE | 2022-08-22 20:50 | ED.FEMALEGU ---
HPI - Female Genitourinary General Chief complaint: Urogenital-Female Stated complaint: UTI Time Seen by Provider: 08/22/22 19:45 History of Present Illness HPI Narrative: 72-year-old female presenting with concern for UTI. Patient's states that she was coughing throughout the night. This morning she woke up and was not feeling very well so she called her PCP who told her to come in for evaluation. Patient states that she has had recurrent UTIs this year. Patient states that she struggles with chronically decreased appetite and intermittent nausea and vomiting. Currently, patient states that she feels okay. She denies any complaints. No headaches, chest pain, shortness of breath, abdominal pain, nausea, diarrhea, leg swelling. Denies dysuria or increased urinary frequency but states she never gets that with UTIs. Related Data Home Medications Medication Instructions Recorded Confirmed amlodipine 10 mg tablet 10 mg PO DAILY 02/05/21 05/17/22 anastrozole 1 mg tablet 1 mg PO DAILY 02/05/21 05/17/22 clobetasol 0.05 % topical ointment 1 applic topical DAILY PRN Itching 02/05/21 05/17/22 fenofibrate 160 mg tablet 160 mg PO DAILY 02/05/21 05/17/22 hydroxyzine HCl 25 mg tablet 25 mg PO HS 02/05/21 05/17/22 lansoprazole 30 mg capsule,delayed 30 mg PO DAILY 02/05/21 05/17/22 release rosuvastatin 40 mg tablet 40 mg PO DAILY 02/05/21 05/17/22 carbamazepine 200 mg 200 mg PO Q12H 05/01/22 05/17/22 tablet,extended release,12 hr (Tegretol XR) erythromycin 2 % topical solution 1 ml topical DAILY PRN Itching 05/01/22 05/25/22 glipizide 5 mg tablet 10 mg PO DAILY 05/01/22 05/17/22 ondansetron HCl 4 mg tablet 4 mg PO Q8H PRN Nausea 05/01/22 05/17/22 pregabalin 150 mg capsule (Lyrica) 300 mg PO BID 05/01/22 05/17/22 silver sulfadiazine 1 % topical 1 applic topical DAILY PRN Itching 05/01/22 05/17/22 cream tacrolimus 0.1 % topical ointment 1 applic topical BID PRN Itching 05/01/22 05/17/22 levothyroxine 100 mcg tablet 100 mcg PO DAILY 05/17/22 05/17/22 meclizine 12.5 mg tablet 12.5 mg PO TID PRN Dizziness 05/17/22 05/17/22 metoprolol tartrate 25 mg tablet 25 mg PO BID 05/17/22 05/17/22 oxycodone-acetaminophen 5 mg-325 1 tablet PO BID 05/17/22 05/17/22 mg tablet Allergies Allergy/AdvReac Type Severity Reaction Status Date / Time amoxicillin [From Augmentin] Allergy Intermediate Diarrhea Verified 05/25/22 08:41 clavulanic acid Allergy Intermediate Diarrhea Verified 05/25/22 08:41 [From Augmentin] gemfibrozil Allergy Intermediate Rash Verified 05/25/22 08:41 hydrochlorothiazide Allergy Intermediate Rash Verified 05/25/22 08:41 hydrocodone Allergy Intermediate Dizziness Verified 05/25/22 08:41 irbesartan Allergy Intermediate Hives Verified 05/25/22 08:41 lisinopril Allergy Intermediate Dizziness Verified 05/25/22 08:41 niacinamide Allergy Intermediate Rash Verified 05/25/22 08:41 Review of Systems Review of Systems: All systems reviewed & are unremarkable except as noted in HPI and below PMFSH Past Medical History Medical History Atrial fibrillation Breast cancer Bullous pemphigoid Diabetes mellitus Essential hypertension Hyperlipidemia Hypothyroidism Hypothyroidism Iron deficiency anemia MGUS (monoclonal gammopathy of unknown significance) Shingles Small bowel obstruction Multiple small-bowel obstructions over the course of 20+ years. Surgical History Surgical History History of exploratory laparotomy (~2009) Due to small-bowel obstruction History of lumpectomy of right breast Hx of cholecystectomy Family History Family History Mother , in her 90s Dementia Father , at age 72 Coronary artery disease Hx of CABG Social History Social History Social Hi
--- NOTE | 2022-08-22 21:00 | PC.NURSE ---
pt states she has had frequent utis. states she takes antibiotics and none of them work. has been to several hospitals and they admit her for iv antibiotic and then discharge her. states called pmd today and was told to come to the ER for eval. pt also c/o nausea.
[2022-08-22] MEDS: LACTATED RINGERS 1,000 ML 999 ML IV CONT (21:08)
[2022-08-22 21:36] LABS: Lactic Acid Reflex 1.2 mmol/L (0.7-2.0)
[2022-08-22] MEDS: SODIUM CHLORIDE 0.9% IV 1,000 ML 999 ML IV CONT (21:40)
[2022-08-22] MEDS: AZITHROMYCIN 250 MG TABLET 500 MG PO (21:58)
[2022-08-22 22:00] VITALS: BP 157/86; PULSE 71; RESP 16; O2SAT 98
[2022-08-22 22:29] LABS: Influenza A QL RT-PCR Negative (Negative); Influenza B QL RT-PCR Negative (Negative); RSV RNA, RT-PCR Negative (Negative); SARS-CoV-2 RNA PCR Negative
[2022-08-22 22:52] LABS: Appearance Urine Cloudy (Clear); Bacteria Urine 4+ /hpf; Bilirubin Urine Negative (Negative); Blood Urine 2+ (Negative); Color Urine Yellow (Yellow); Glucose Urine UA Negative (Negative); Ketones Urine Trace mg/dL (Negative); Leukocyte Esterase Ur 2+ LEU/UL (Negative); Nitrate Urine Positive (Negative); Non Pathogenic Casts 0-2; Protein Urine 1+ mg/dL (Negative); RBC Urine 21-50 /hpf (0-2); Squamous Epithelial Cell Urine Occasional /hpf (Few); WBC Urine >100 /hpf; pH Urine 6.5 (5.0-9.0)
[2022-08-22 23:01] LABS: Add Urine Microscopic? YES
[2022-08-22] MEDS: CEPHALEXIN 500 MG CAPSULE PO (23:12)
[2022-08-23 00:10] VITALS: BP 151/78; PULSE 80; RESP 16; TEMP 36.8; O2SAT 98
== END 2022-08-23 00:10 | disposition home or self-care (01) ==
PROVIDERS: Emergency Medicine; Emergency Provider Emergency Medicine; PCP Student in an Organized Health Care Education/Training Program
DX: J18.9 Pneumonia, unspecified organism (principal); N39.0 Urinary tract infection, site not specified; Z20.822 Contact with and (suspected) exposure to COVID-19; I48.91 Unspecified atrial fibrillation; E11.9 Type 2 diabetes mellitus without complications; I10 Essential (primary) hypertension; E78.5 Hyperlipidemia, unspecified; E03.9 Hypothyroidism, unspecified; D50.9 Iron deficiency anemia, unspecified; Z85.3 Personal history of malignant neoplasm of breast; Z87.891 Personal history of nicotine dependence; Z79.84 Long term (current) use of oral hypoglycemic drugs; R94.31 Abnormal electrocardiogram [ECG] [EKG]
CPT/HCPCS: 36415; 71046; 80053; 81001; 83605; 85025; 87077; 87086; 87186; 87637; 93005; 96360; 96361; 99283; A9270; J7030; J7120

== ENCOUNTER → 2022-12-27 09:01 | Outpatient (CLI) | payer MEDICARE, SELFPAY ==
--- NOTE | ~2022-12-27 | MMUS_ITS ---
EXAMINATION: MM diagnostic ziggy BI w antonio, US breast LT limited HISTORY: Palpable left breast lump TECHNIQUE: Additional 3-D tomosynthesis images of the breasts were performed and synthetic 2-D images were generated. CAD analysis was submitted and interpreted. High resolution Limited left breast ultr asound was performed. COMPARISON: Comparison to multiple prior studies sequentially, with oldest reviewed study dated 12/2019. BREAST PARENCHYMAL COMPOSITION: The breasts are extremely dense, which lowers the sensitivity of mamm ography FINDINGS: MAMMOGRAPHIC FINDINGS: The breast are stable. There are biopsy clips. There are innumerable benign-appearing bilateral breas t calcifications. No discrete mass identified in the area palpable concern in the left breast. No new masses, calcifications or architectural distortion. ULTRASOUND: Limited left breast ultrasound: In the area of palpable concern there is a stable complex oval predom inantly hypoechoic mass measuring 12 mm, possibly benign fat necrosis. No other discrete mass. IMPRESSION: 1. Probable benign left breast mass at 1:00, 8 cm from the nipple, most likely benign fat necrosis. 2. Recommend 6 month follow-up left breast ultrasound BI-RADS category 3, probably benign findings. Reviewed, dictated and finalized at location A. IMPRESSION: 1. Probable benign left breast mass at 1:00, 8 cm from the nipple, most likely benign fat necrosis. 2. Recommend 6 month follow-up left breast ultrasound BI-RADS category 3, probably benign findings.
== END ==
PROVIDERS: PCP Student in an Organized Health Care Education/Training Program; Visit Provider Student in an Organized Health Care Education/Training Program
DX: C50.412 Malignant neoplasm of upper-outer quadrant of left female breast (principal); Z17.0 Estrogen receptor positive status [ER+]; R92.8 Other abnormal and inconclusive findings on diagnostic imaging of breast
CPT/HCPCS: 76642; 77062; 77066; G0279

== ENCOUNTER 2023-09-06 08:18 | Observation (INO) | payer MEDICARE, SELFPAY ==
[2023-09-06] VITALS (11 sets, daily range): BP systolic 139–182; BP diastolic 64–81; PULSE 62–82; RESP 14–22; TEMP 36.4–36.7; O2SAT 96–100; BMI 23.4
--- NOTE | ~2023-09-06 | CT_ITS ---
EXAMINATION: CT brain wo con DATE: 09/06/2023 09:32 INDICATION: Altered mental status TECHNIQUE: Computed tomography (CT) of the head was performed without intravenous contrast. The dose- length product was 605.33 mGy-cm. Automated exposure control and iterative reconstruction technique w ere employed. COMPARISON: CT dated 02/04/2021 FINDINGS: Brain parenchymal volume is normal for age. There are scattered mild periventricular and holcomb bcortical white matter changes, most likely related to small vessel ischemic disease (microangiopathy ). No ventriculomegaly or midline shift. There is intracranial atherosclerosis. No acute infarction, hemorrhage or mass. Paranasal sinuses and mastoids are pneumatized. No depressed skull fractures. IMPRESSION: 1. No acute intracranial abnormality. Reviewed, dictated and finalized at location L.
--- NOTE | ~2023-09-06 | XR_ITS ---
EXAMINATION: XR chest 1V INDICATION: Transient alteration of awareness, history of left breast cancer TECHNIQUE: AP view of the chest is obtained. COMPARISON: 08/22/2022 FINDINGS: There is a 5 mm nodule projecting in the left lung base. No pleural effusion or pneumothora x. The cardiomediastinal silhouette is normal. There are surgical clips in the left breast. Severe lo wer cervical spondylosis is noted. IMPRESSION: 1. 5 mm nodule of the left lung base which may be infectious or inflammatory but is indeterminate giv en history of left breast cancer. Recommend follow-up radiographs after appropriate therapy. Reviewed, dictated and finalized at location F. IMPRESSION: 1. 5 mm nodule of the left lung base which may be infectious or inflammatory bu t is indeterminate given history of left breast cancer. Recommend follow-up rad iographs after appropriate therapy.
--- NOTE | ~2023-09-06 | CT_ITS ---
EXAMINATION:CT diagnostic chest wo con DATE: 09/07/2023 13:53 INDICATION: Abnormal chest radiograph. TECHNIQUE: Computed tomography (CT) of the chest was performed without intravenous contrast. Automate d exposure control and iterative reconstruction technique were employed. The dose-length product (DLP ) was 151.54 mGy-cm. COMPARISON: Chest single view 09/06/2023 FINDINGS: There is mild scarring in paraspinal right lower lobe. There is mild atelectasis bilaterall y. Calcified bilateral lung nodules are consistent with old granulomatous disease. No pleural effusio n. The heart size is normal. There are coronary artery calcifications. No pericardial effusion. There is calcified atherosclerosis of the aorta and many of the other arteries. There is mild cervical and thoracic spondylosis. There is mild chronic anterior wedging of multiple vertebral bodies. IMPRESSION: 1. No abnormal correlate for the chest radiograph finding. Reviewed, dictated and finalized at location A.
[2023-09-06 08:27] LABS: Glucose Point of Care 76 mg/dl (65-105)
--- NOTE | 2023-09-06 08:28 | ECG_ITS ---
Measurements Intervals [place] Rate: 74 P: 30 MS: 175 QRS: -19 QRSD: 79 T: 24 QT: 398 QTc: 442 Interpretive Statements SINUS RHYTHM VOLTAGE CRITERIA FOR LVH CONSIDER ANTERIOR INFARCT, AGE INDETERMINATE CONSIDER INFERIOR INFARCT, AGE INDETERMINATE ABNORMAL ECG COMPARED TO ECG 08/22/2022 16:16:48 NO SIGNIFICANT CHANGES Electronically Signed On 09-06-2023 8:37:21 CDT by Mikhail Toro D.O.
[2023-09-06 08:35] LABS: Basophils Absolute Auto 0.1 K/mm3 (0.0-0.1); Basophils Percent Auto 0.8 % (0.2-1.2); Eosinophils Absolute Auto 0.3 K/mm3 (0-0.3); Eosinophils Percent Auto 4.4 % (0-4.4); Hemoglobin 12.4 g/dL (12.0-15.0); Immature Granulocyte Absolute 0.02 K/mm3 (0.00-0.031); Immature Granulocyte Percent A 0.3 % (0-0.5); Lymphocytes Absolute Auto 1.65 K/mm3 (0.9-3.2); Lymphocytes Percent Auto 27.9 % (18.3-44.2); Mean Corpuscular HGB Conc 31.8 g/dl (32-36); Mean Corpuscular Hemoglobin 29.6 pg (26-34); Mean Corpuscular Volume 93.1 fl (80-100); Mean Platelet Volume 10.8 fl (7.4-10.4); Monocytes Absolute Auto 0.5 K/mm3 (0.1-0.6); Neutrophils Absolute Auto 3.5 K/mm3 (1.3-6.7); Neutrophils Percent Auto 58.6 % (45.5-73.1); Platelet Count Result 200 k/mm3 (150-375); Red Blood Count 4.19 M/mm3 (4.2-5.4); Red Cell Distribution Width 15.1 % (11.5-14.5); White Blood Count 5.9 K/mm3 (4.5-10.0)
[2023-09-06 08:49] LABS: Alanine Aminotransferase 16 U/L (6-35); Albumin Level 4.6 g/dL (3.5-5.1); Alkaline Phosphatase 121 U/L (38-126); Anion Gap 11 mmol/L (4-12); Aspartate Amino Transferase 43 U/L (14-36); Bilirubin,Total 0.7 mg/dL (0.2-1.3); Blood Urea Nitrogen 28 mg/dL (7-17); Calcium 9.4 mg/dL (8.4-10.2); Carbon Dioxide 20 mmol/L (22-30); Chloride 105 mmol/L (98-107); Estimated CRCL calculation 38 ml/min; Estimated Glomerular Filt Rate 55; Glucose 89 mg/dL (65-110); Potassium 3.8 mmol/L (3.4-5.0); Sodium 136 mmol/L (137-145)
[2023-09-06 08:50] LABS: Partial Thromboplastin Time 28.8 Seconds (22.3-36.8)
--- NOTE | 2023-09-06 09:19 | ED.AMS ---
HPI - Altered Mental Status General Chief Complaint: Altered Mental Status <Shirley Montez PA-C - Last Filed: 09/06/23 11:30> Stated Complaint: Low BG <Shirley Montez PA-C - Last Filed: 09/06/23 11:30> Time Seen by Provider: 09/06/23 09:04 <Shirley Montez PA-C - Last Filed: 09/06/23 11:30> History of Present Illness HPI narrative: 73-year-old female with history of hyperlipidemia, AFib, hypothyroidism, hypertension, type 2 diabetes presents to the emergency department for altered mental status with her and daughter at bedside. Patient states she cannot remember the events of this morning but currently feels fine. Her and daughter provide the following history. Her states that the patient went to bed normal last night, she began thrashing around in the bed this morning. States she was speaking nonsensical words and becoming combative. They called 911, EMS checked her glucose and found it to be 59. Per family, EMS was having difficulty starting a IV. She was given IM glucagon. upon arrival, patient's blood glucose is 76. Patient states she feels fine now and family states she is at her baseline. Patient states she has never had an issue with hypoglycemia in the past. She denies recent medication changes, chest pain or shortness of breath, cough or congestion, abdominal pain, nausea vomiting, diarrhea, dysuria or hematuria. She is reporting chronic pain to her left forehead from prior bullous pemphigoid and shingles which she is currently seeing pain management for. <Shirley Montez PA-C - Last Filed: 09/06/23 11:30> Related Data Home Medications: Home Medications Medication Instructions Recorded Confirmed amlodipine 10 mg tablet 10 mg PO DAILY 02/05/21 09/06/23 anastrozole 1 mg tablet 1 mg PO DAILY 02/05/21 09/06/23 fenofibrate 160 mg tablet 160 mg PO DAILY 02/05/21 09/06/23 rosuvastatin 40 mg tablet 40 mg PO DAILY 02/05/21 09/06/23 erythromycin 2 % topical solution 1 ml topical TID PRN Itching 05/01/22 09/06/23 glipizide 5 mg tablet 20 mg PO DAILY 05/01/22 09/06/23 ondansetron HCl 4 mg tablet 4 mg PO Q4H PRN Nausea 05/01/22 09/06/23 pregabalin 150 mg capsule (Lyrica) 300 mg PO BID 05/01/22 09/06/23 levothyroxine 100 mcg tablet 100 mcg PO DAILY 05/17/22 09/06/23 oxycodone-acetaminophen 5 mg-325 1 tablet PO Q6H PRN Pain, Moderate 05/17/22 09/06/23 mg tablet Colace 100 mg PO BID 09/06/23 09/06/23 Refresh Tears 1 drp EACH EYE QID PRN Dry Eyes 09/06/23 09/06/23 memantine 5 mg tablet 5 mg PO BID 09/06/23 09/06/23 mirtazapine 15 mg tablet 15 mg PO HS 09/06/23 09/06/23 naproxen 375 mg tablet 375 mg PO DAILY PRN Pain, Mild 09/06/23 09/06/23 sulfamethoxazole 800 1 tablet PO BID PRN uti 09/06/23 09/06/23 mg-trimethoprim 160 mg tablet triamcinolone acetonide 0.1 % 1 applic topical BID PRN Itching 09/06/23 09/06/23 topical ointment <Shirley Montez PA-C - Last Filed: 09/06/23 11:30> Allergies/Adverse Reactions: Allergies Allergy/AdvReac Type Severity Reaction Status Date / Time gemfibrozil Allergy Intermediate Rash Verified 09/06/23 12:28 hydrochlorothiazide Allergy Intermediate Rash Verified 09/06/23 12:28 irbesartan Allergy Intermediate Hives Verified 09/06/23 12:28 niacinamide Allergy Intermediate Rash Verified 09/06/23 12:28 amoxicillin [From Augmentin] AdvReac Intermediate Diarrhea Verified 09/06/23 12:28 clavulanic acid AdvReac Intermediate Diarrhea Verified 09/06/23 12:28 [From Augmentin] hydrocodone AdvReac Intermediate Dizziness Verified 09/06/23 12:28 lisinopril AdvReac Intermediate Dizziness Verified 09/06/23 12:28 <Shirley Montez PA-C - Last Filed: 09/06/23 11:30> Review of Systems Review of Systems: CONSTITUTIONAL: Denies fever, chills, or sweats. EYES: Denies visual changes, redness, or discharge. ENT: Denies rhinorrhea, congestion, sore throat, or otalgia. CARDIOVASCULAR: Denies chest pain, palpitations, or edema. RESPIRATOR
[2023-09-06 09:46] LABS: Troponin I < 0.012 ng/mL (0.000-0.034)
[2023-09-06 10:17] LABS: Bacteria Urine 4+ /hpf; RBC Urine 0-2 /hpf (0-2); Squamous Epithelial Cell Urine Few /hpf (Few); WBC Urine >100 /hpf (0-3)
[2023-09-06 10:29] LABS: Color Urine Yellow (Yellow)
[2023-09-06 10:30] LABS: Appearance Urine Sl Cloudy (Clear); Bilirubin Urine Negative (Negative); Blood Urine Negative (Negative); Glucose Urine UA Trace mg/dL (Negative); Ketones Urine Trace mg/dL (Negative); Leukocyte Esterase Ur 3+ LEU/UL (Negative); Nitrate Urine Negative (Negative); Protein Urine 1+ mg/dL (Negative); Urobilinogen Urine 0.2 mg/dL (<2.0); pH Urine 5.5 (5.0-9.0)
[2023-09-06 10:33] LABS: Add Urine Microscopic? YES
[2023-09-06 11:10] LABS: Thyroid Stimulating Hormone Reflex 0.269 uIU/mL (0.465-4.68)
[2023-09-06] MEDS: SODIUM CHLORIDE 0.9% IV 1,000 ML 999 ML IV CONT (11:12)
[2023-09-06 11:22] LABS: Glucose Point of Care 201 mg/dl (65-105)
[2023-09-06] MEDS: PIPERACILLN/TAZ 3.375GM/NS50ML 3.375 GM/50 ML BAG IVPB (11:38)
--- NOTE | 2023-09-06 12:25 | ADMGEN ---
This patient, Josephine Kong, was admitted to Medical Room 341-01. Patient/family oriented to hospital policies and general routines including ID bracelet, bed and alarms, visiting hours, pain management, procedures, bathroom and other care routines, personal items, smoking policy, room service/diet, and visiting hours. Information on how to activate the Rapid Response Team has been discussed. Patient/Family are encouraged to report perceived risks to care and to ask questions if they do not understand what they are told or what they should do.
--- NOTE | 2023-09-06 12:43 | PM.IMHP ---
H&P: HPI History of Present Illness Date/Time: 09/06/23 12:43 Chief Complaint: AMS Narrative: 73 y/o F presents here with AMS with PMH of Afib, breast cancer (s/p radiation), DM2, HTN, HLD, hypothyroidism, and TU. dementia? Patient presented here via EMS from home for altered mental status. Patient does not remember events, chart reviewed and family ( and daughter) provided the following narrative. Patient went to bed around 1030 pm without symptoms, confusion, or focal neuro deficit. Around 0500, patient woke thrashing in bed. reported that she was speaking nonsensical words, not following commands, and agitated/combative. The family called EMS car a 1 EMS arrival they found her glucose to be 59. They were unable to start an IV due to agitation/combativeness. Patient was given IM glucagon and repeat glucose was 29, however upon arrival to the ED her glucose was 76 and patient had returned to baseline. Reporting some nausea this morning that resolved prior to arrival. Patient does not recall events this morning and has no acute complaints. Endorsing chronic complaint of left frontal/parietal region pain secondary to skin condition. Reports previous history of hypoglycemia 10-15 yrs ago, does not remember what she was told the cause. Patient is a type 2 diabetic and currently on glipizide 20 mg p.o. daily with breakfast. Has previously not tolerated multiple medications - managed by PCP ([facility]). No increased dose or duplicate dose, helps with medication regimen. No recent changes to medication. No missed meal or snack, alcohol use last night, increased exercise (more than usual), nausea or vomiting, or overall decreased PO intake. Did report she ate less dinner than she usually does last time. [facility] care at [facility] with [facility] and currently on Anastrazole. Recently placed on Bactrim on 08/28 by Armature Tester due to flank pain and was completed. Denying dysuria, hematuria, flank pain, or urinary frequency. Reports she is typically asymptomatic with her UTIs. Denies any increased confusion or fogginess post-hypoglycemia correction. Initial VS at presentation: 97.6? F, HR 82, RR 20, 182/80, and 100% on RA. ED workup showed: No leukocytosis, no anemia, Na 136, creatinine 1.0, glucose 201 on BMP, AST 43, initial troponin negative, and TSH 0.269, and UA suggestive of UTI. CT head showed no acute intracranial abnormality. CXR showed 5 mm nodule of the left lung base which may be infectious or inflammatory but is indeterminate given history of left breast cancer. Review of Systems Review of Systems: All systems reviewed & are unremarkable except as noted in HPI and below PMFSH Past Medical History Medical History Atrial fibrillation Breast cancer Bullous pemphigoid Diabetes mellitus Essential hypertension Hyperlipidemia Hypothyroidism Hypothyroidism Iron deficiency anemia MGUS (monoclonal gammopathy of unknown significance) Shingles Small bowel obstruction Multiple small-bowel obstructions over the course of 20+ years. Surgical History Surgical History History of exploratory laparotomy (~2009) Due to small-bowel obstruction History of lumpectomy of right breast Hx of cholecystectomy Family History Family History Mother , in her 90s Dementia Father , at age 72 Coronary artery disease Hx of CABG Social History Social History Social History: She lives in [place] with her of 44 years. They have 2 children. She is a former smoker but ?did not smoke that much?. She she does not drink alcohol. 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 Healthcare power of corporate associate attorney: Smoking status: Former smoker Alcoh
[2023-09-06 16:52] LABS: Glucose Point of Care 112 mg/dl (65-105)
[2023-09-06] MEDS: DOCUSATE SODIUM 100 MG CAPSULE PO (18:02)
[2023-09-06] MEDS: ERYTHROMYCIN OPHTH OINTMENT 1 GM TUBE 1 APPLIC EACH EYE (18:02)
[2023-09-06] MEDS: MEMANTINE 5 MG TABLET PO (18:03)
[2023-09-06] MEDS: PIPERACILLIN/TAZ 2.25G/NS 50ML 2.25 GM/50 ML BAG IVPB (18:06)
[2023-09-06] MEDS: oxyCODONE/ACETAMINOPHEN (*CRX) 5-325 MG TABLET 2 TABLET PO (18:38)
[2023-09-06] MEDS: GLUCAGON FOR INJ 1 MG VIAL IM (21:15)
[2023-09-06] MEDS: PREGABALIN (*CRX) 75 MG CAPSULE 300 MG PO (21:17)
[2023-09-06 22:03] LABS: Glucose Point of Care 36 mg/dl (65-105)
[2023-09-06 22:03] LABS: Glucose Point of Care 152 mg/dl (65-105)
--- NOTE | 2023-09-06 22:15 | PC.NURSE ---
Physician Noreen made aware of BG 36, presenting as asymptomatic. Patient received apple juice and an glucagon IM injection, as glucose gel was unavailable. BG of 152 at reassessment.
[2023-09-07] MEDS: PIPERACILLIN/TAZ 2.25G/NS 50ML 2.25 GM/50 ML BAG IVPB ×2 (00:18→06:48)
[2023-09-07 04:25] LABS: Glucose Point of Care 71 mg/dl (65-105)
[2023-09-07 04:37] VITALS: BP 162/67; PULSE 81; RESP 20; TEMP 36.4; O2SAT 100
--- NOTE | 2023-09-07 04:38 | PC.NURSE ---
BS 71 revealed on spot check. Patient given apple juice refused all other intake. Patient states that she's never really hungry in the morning. Nutritional management of DM2 provided to patient.
[2023-09-07 06:03] LABS: Basophils Absolute Auto 0.1 K/mm3 (0.0-0.1); Eosinophils Absolute Auto 0.4 K/mm3 (0-0.3); Eosinophils Percent Auto 6.8 % (0-4.4); Hematocrit 37.1 % (37.0-47.0); Hemoglobin 11.9 g/dL (12.0-15.0); Immature Granulocyte Absolute 0.02 K/mm3 (0.00-0.031); Immature Granulocyte Percent A 0.4 % (0-0.5); Lymphocytes Absolute Auto 1.71 K/mm3 (0.9-3.2); Lymphocytes Percent Auto 33.3 % (18.3-44.2); Mean Corpuscular HGB Conc 32.1 g/dl (32-36); Mean Corpuscular Hemoglobin 29.8 pg (26-34); Mean Corpuscular Volume 92.8 fl (80-100); Mean Platelet Volume 11.5 fl (7.4-10.4); Monocytes Absolute Auto 0.5 K/mm3 (0.1-0.6); Monocytes Percent Auto 8.8 % (2.6-8.5); Neutrophils Absolute Auto 2.6 K/mm3 (1.3-6.7); Neutrophils Percent Auto 49.7 % (45.5-73.1); Platelet Count Result 177 k/mm3 (150-375); Red Cell Distribution Width 15.2 % (11.5-14.5); White Blood Count 5.1 K/mm3 (4.5-10.0)
[2023-09-07 06:15] LABS: Hemoglobin A1C 5.9 % (<5.7)
[2023-09-07 06:27] LABS: Alanine Aminotransferase 17 U/L (6-35); Albumin Level 4.2 g/dL (3.5-5.1); Alkaline Phosphatase 99 U/L (38-126); Anion Gap 11 mmol/L (4-12); Aspartate Amino Transferase 42 U/L (14-36); Bilirubin,Total 0.9 mg/dL (0.2-1.3); Blood Urea Nitrogen 22 mg/dL (7-17); Calcium 9.4 mg/dL (8.4-10.2); Carbon Dioxide 17 mmol/L (22-30); Chloride 110 mmol/L (98-107); Estimated CRCL calculation 46 ml/min; Estimated Glomerular Filt Rate > 60; Glucose 77 mg/dL (65-110); Potassium 3.8 mmol/L (3.4-5.0); Sodium 138 mmol/L (137-145)
[2023-09-07] MEDS: GLUCOSE ORAL GEL 15 GM OF GLUCSE IN 37.5 GM TUBE PO (08:16)
[2023-09-07] MEDS: DEXTROSE 50% 25 GM/50 ML SYRINGE IV PUSH (08:18)
[2023-09-07] MEDS: ERYTHROMYCIN OPHTH OINTMENT 1 GM TUBE 1 APPLIC EACH EYE ×3 (08:23→17:13)
[2023-09-07] MEDS: ANASTROZOLE (*CHEMO) 1 MG TABLET PO (08:24)
[2023-09-07] MEDS: FENOFIBRATE 160 MG TABLET PO (08:24)
[2023-09-07] MEDS: MEMANTINE 5 MG TABLET PO ×2 (08:24→17:13)
[2023-09-07] MEDS: ROSUVASTATIN 20 MG TABLET 40 MG BY MOUTH (08:28)
[2023-09-07] MEDS: PREGABALIN (*CRX) 75 MG CAPSULE 300 MG PO ×2 (08:28→19:55)
[2023-09-07] MEDS: amLODIPine BESYLATE 5 MG TABLET 10 MG PO (08:28)
[2023-09-07] MEDS: DOCUSATE SODIUM 100 MG CAPSULE PO (08:28)
[2023-09-07 08:40] LABS: Glucose Point of Care 44 mg/dl (65-105)
[2023-09-07 08:43] LABS: Glucose Point of Care 223 mg/dl (65-105)
[2023-09-07 10:03] LABS: Free T4 Free Thyroxine Reflex 1.66 ng/dL (0.78-2.19)
[2023-09-07] MEDS: MEROPENEM 1 GM/NS 100 ML 1 GM/100 ML BAG IVPB ×2 (10:07→17:13)
[2023-09-07] MEDS: oxyCODONE/ACETAMINOPHEN (*CRX) 5-325 MG TABLET 2 TABLET PO ×2 (11:31→19:56)
[2023-09-07 12:06] LABS: Glucose Point of Care 200 mg/dl (65-105)
[2023-09-07 12:35] LABS: Total Triiodothyronine (T3) 1.15 NG/ML (0.97-1.69)
[2023-09-07 15:21] VITALS: BP 157/69; PULSE 80; RESP 17; TEMP 36.6; O2SAT 97
--- NOTE | 2023-09-07 15:22 | PM.IMPN ---
Progress Note: A&P Assessment and Plan (1) Hypoglycemia: Code(s): E16.2 - Hypoglycemia, unspecified Status: Acute Assessment and Plan: - hypoglycemia protocol - POC blood glucose ACHS - home medication held - glipizide 10 mg (takes 2 pills daily with breakfast) - correct regimen ordered - low dose TIDWM and HS - A1C 5.9 - currently has infection: UTI, did not meet SIRS criteria - TSH 0.269, T4 1.66 - Random cortisol normal and c-peptide pending - 09/06 pt had another hypoglycemic event this morning and corrected with oral glucose. (2) Diabetes mellitus: Code(s): E11.9 - Type 2 diabetes mellitus without complications Status: Acute Assessment and Plan: - see above (3) UTI (urinary tract infection): Qualifiers: Hematuria presence: with hematuria Urinary tract infection type: acute cystitis Qualified Code(s): N30.01 - Acute cystitis with hematuria Code(s): N39.0 - Urinary tract infection, site not specified Status: Acute Assessment and Plan: UA: Slightly cloudy, 1+ protein, trace glucose, trace ketones, 3+ leuks, >100 WBC 90, 4+ bacteria, few epithelial cells - UC pending, submitted on 09/05 - previous micro reviewed 08/22/2022 with E. coli ESBL. - Switch from Zosyn to meropenem due to ESBL history. - recently completed course of Bactrim on 08/28 - Adjust antibiotic therapy to culture results (4) Pulmonary nodule: Code(s): R91.1 - Solitary pulmonary nodule Status: Ruled-out Assessment and Plan: - has hx of breast cancer - CXR: 5 mm nodule of the left lung base which may be infectious or inflammatory but is indeterminate given history of left breast cancer. Recommend follow-up radiographs after appropriate therapy. - no respiratory symptoms, fever, chills, body aches or fatigue. will add CT chest noncon. - former smoker: 2 PPD from 16 to 17 years ago. - received oncology care at [facility] in 2018/2018, would prefer to see them again if findings indicative of cancer - last mammogram in November or December of 2022 at [facility] - patient and notified of findings - Not seem on CT chest. Normal findings. Ruled out (5) Hypothyroidism: Qualifiers: Hypothyroidism type: acquired Qualified Code(s): E03.9 - Hypothyroidism, unspecified Code(s): E03.9 - Hypothyroidism, unspecified Status: Acute Assessment and Plan: - currently on levothyroxine 100 mcg PO daily, held until full results Subjective Date/time seen: 09/07/23 15:22 Interval history: Patient doing well. She is concerned about her chronic post-herpetic neuralgia and states that she is having pain. she denied any symptoms during her hypoglycemic event this morning. Patient denies overuse of her diabetes medication. She is concerned about her frequent UTIs. She sees urology for this. Explained to her preventative care for UTIs. Waiting for urine cultures return. Exam Narrative: GENERAL: Comfortable, no acute distress HENMT: moist mucous membranes EYES: EOM intact b/l NECK: no lymphadenopathy RESPIRATORY: clear to auscultation, no increased respiratory effort CARDIO: Regular rate and rhythm GI: soft, nontender, bowel sounds present SKIN/EXTREMITIES: no rashes, no edema, no redness or tenderness NEURO: PROM intact, answers questions appropriately, A&O x4 Objective Data Vital Signs Vital Signs: Vital Signs - 24 hr 09/06/23 21:21 09/06/23 20:00 09/07/23 04:37 Temperature 97.7 F 97.5 F L Pulse Rate 72 81 Respiratory Rate 18 20 Blood Pressure 161/81 H 162/67 H Pulse Oximetry 96 100 Oxygen Delivery Room Air 09/07/23 15:21 Temperature 97.8 F Pulse Rate 80 Respiratory Rate 17 Blood Pressure 157/69 H Pulse Oximetry 97 Oxygen Delivery Intake/Output Intake/Output: Intake & Output 09/04/23 09/05/23 09/06/23 09/07/23 23:59 23:59 23:59 23:59 Intake Total 2130 1420 Output Total
[2023-09-07 17:50] LABS: Glucose Point of Care 156 mg/dl (65-105)
[2023-09-07 22:01] VITALS: BP 144/73; PULSE 68; RESP 18; TEMP 37; O2SAT 96
[2023-09-08] MEDS: MEROPENEM 1 GM/NS 100 ML 1 GM/100 ML BAG IVPB ×2 (01:48→08:52)
[2023-09-08 06:00] VITALS: BP 164/67; PULSE 63; RESP 21; TEMP 36.6; O2SAT 100
[2023-09-08] MEDS: ONDANSETRON HCL ODT 4 MG TABLET PO (07:45)
[2023-09-08 07:53] LABS: Glucose Point of Care 109 mg/dl (65-105)
[2023-09-08] MEDS: ANASTROZOLE (*CHEMO) 1 MG TABLET PO (08:36)
[2023-09-08] MEDS: amLODIPine BESYLATE 5 MG TABLET 10 MG PO (08:36)
[2023-09-08] MEDS: ROSUVASTATIN 20 MG TABLET 40 MG BY MOUTH (08:36)
[2023-09-08] MEDS: MEMANTINE 5 MG TABLET PO (08:37)
[2023-09-08] MEDS: FENOFIBRATE 160 MG TABLET PO (08:37)
[2023-09-08] MEDS: DOCUSATE SODIUM 100 MG CAPSULE PO (08:37)
[2023-09-08] MEDS: oxyCODONE/ACETAMINOPHEN (*CRX) 5-325 MG TABLET 2 TABLET PO (08:37)
[2023-09-08] MEDS: ERYTHROMYCIN OPHTH OINTMENT 1 GM TUBE 1 APPLIC EACH EYE (08:43)
[2023-09-08] MEDS: PREGABALIN (*CRX) 75 MG CAPSULE 300 MG PO (09:25)
--- NOTE | 2023-09-08 12:30 | PM.DS ---
DS: Admitting Diagnosis Discharge Date 09/08/23 Admitting Diagnosis confusion, dizziness DS: Discharge Diagnosis Discharge Diagnosis (1) Hypoglycemia: Code(s): E16.2 - Hypoglycemia, unspecified Status: Acute (2) Diabetes mellitus: Code(s): E11.9 - Type 2 diabetes mellitus without complications Status: Acute (3) UTI (urinary tract infection): Qualifiers: Hematuria presence: with hematuria Urinary tract infection type: acute cystitis Qualified Code(s): N30.01 - Acute cystitis with hematuria Code(s): N39.0 - Urinary tract infection, site not specified Status: Acute (4) Pulmonary nodule: Code(s): R91.1 - Solitary pulmonary nodule Status: Ruled-out (5) Hypothyroidism: Qualifiers: Hypothyroidism type: acquired Qualified Code(s): E03.9 - Hypothyroidism, unspecified Code(s): E03.9 - Hypothyroidism, unspecified Status: Acute DS: Summary Hospital Course Hospital Course: This is a 73-year-old female past medical history of AFib, breast cancer post radiation, type 2 diabetes, hypertension, hyperlipidemia hypothyroidism and iron deficiency anemia the presented to the ED on 09/06/2023 for having altered mental status. Patient had gone to bed without any confusion or focal neuro deficit. Patient had woke up and she was thrashing in the bed and not following commands as well as agitated and combative.?The family called EMS car a 1 EMS arrival they found her glucose to be 59.? They were unable to start an IV due to agitation/combativeness.? Patient was given IM glucagon and repeat glucose was 29, however upon arrival to the ED her glucose was 76 and patient had returned to baseline. Patient takes 10 mg of glipizide twice a day. She has not had any history of hypoglycemia in the past. Glipizide was held during hospital stay. She had 2 episodes of hypoglycemia without symptoms but otherwise sugars were between 100 and 200. during initial workup her UA was suspicious for infection. She had been in the middle of treatment for a UTI on Bactrim. She was started on Zosyn initially but then transition to meropenem due to ESBL history. Urine culture came back with E coli ESBL sensitive to Macrobid. Urine sensitivities were resistant to Bactrim. Patient's previous infection is likely the same infection that she had here given they were 2 weeks apart. She was transitioned to p.o. antibiotics. Her labs and vital signs are stable and she is medically clear for discharge. Time Spent with Patient Time attestation: Total time spent providing and/or coordinating discharge services: Exam Narrative: GENERAL: Comfortable, no acute distress HENMT: moist mucous membranes EYES: EOM intact b/l NECK: no lymphadenopathy RESPIRATORY: clear to auscultation, no increased respiratory effort CARDIO: Regular rate and rhythm GI: soft, nontender, bowel sounds present SKIN/EXTREMITIES: no rashes, no edema, no redness or tenderness NEURO: PROM intact, answers questions appropriately, A&O x4 DS: Data Data Completed and Pending Labs on day of discharge: Labs from last 24 hours 09/08/23 09/07/23 09/06/23 07:50 17:21 08:30 POC Capillary Glucose 109 H 156 H Total T3 1.15 Discharge Plan Discharge Attending physician on discharge: Santana Almonte Consulting providers: Shirley Montez Discharging Clinician: Rica Frances Patient Disposition: Home, Self-Care Activity: as tolerated Diet: diabetic Discharge Instructions: Macrobid 100mg twice a day for 5 days. Next dose tonight. Hemoglobin A1c goal is <7 Please check blood sugars twice a day, 1 fasting 1 not. Recommend keeping blood sugar log to show to your primary care provider. Take all medications as prescribed even if feeling better Eat well balanced meals and stay hydrated Keep active to remain strong Avoid use of diapers or pads Good brenda Care every 2 hours Frequent
[2023-09-08 14:41] LABS: Glucose Point of Care 199 mg/dl (65-105)
[2023-09-10 15:30] LABS: C-Peptide 4.48 ng/mL (0.80-3.85)
== END 2023-09-08 13:00 | disposition home or self-care (01) ==
LOC: ANHED 11:08 → ANH3MED 12:08
PROVIDERS: Internal Medicine Critical Care Medicine; Student in an Organized Health Care Education/Training Program; Admitting Provider Physician Assistant; Emergency Provider Physician Assistant; PCP Student in an Organized Health Care Education/Training Program; Visit Provider Family Medicine
DX: E11.649 Type 2 diabetes mellitus with hypoglycemia without coma (principal); N30.01 Acute cystitis with hematuria; B96.20 Unspecified Escherichia coli [E. coli] as the cause of diseases classified elsewhere; R91.1 Solitary pulmonary nodule; E03.9 Hypothyroidism, unspecified; B02.29 Other postherpetic nervous system involvement; I10 Essential (primary) hypertension; R94.31 Abnormal electrocardiogram [ECG] [EKG]; E78.5 Hyperlipidemia, unspecified; I48.91 Unspecified atrial fibrillation; D50.9 Iron deficiency anemia, unspecified; F03.90 Unspecified dementia, unspecified severity, without behavioral disturbance, psychotic disturbance, mood disturbance, and anxiety; G89.29 Other chronic pain; Z66 Do not resuscitate; Z85.3 Personal history of malignant neoplasm of breast; Z92.3 Personal history of irradiation; Z87.891 Personal history of nicotine dependence; Z79.1 Long term (current) use of non-steroidal anti-inflammatories (NSAID); Z79.84 Long term (current) use of oral hypoglycemic drugs; Z79.811 Long term (current) use of aromatase inhibitors; Z79.891 Long term (current) use of opiate analgesic; Z79.899 Other long term (current) drug therapy
CPT/HCPCS: 36415; 70450; 71045; 71250; 80053; 81001; 82533; 82948; 83036; 84439; 84443; 84480; 84484; 84681; 85025; 85610; 85730; 87077; 87086; 87088; 87186; 93005; 96365; 96366; 96367; 96372; 99285; A9270; G0378; J1610; J2185; J2543; J7030

== ENCOUNTER 2024-04-02 03:02 | Inpatient (IN) | payer MEDICARE, SELFPAY ==
[2024-04-02] VITALS (7 sets, daily range): BP systolic 124–141; BP diastolic 53–89; PULSE 70–115; RESP 16–20; TEMP 36.1–36.5; O2SAT 93–99
--- NOTE | ~2024-04-02 | XR_ITS ---
EXAMINATION: XR abdomen gastric tube insert DATE: 04/03/2024 22:19 INDICATION: Nasogastric tube placement TECHNIQUE: A supine view of the abdomen and lower chest was obtained for evaluation of feeding tube placement. COMPARISON: None. FINDINGS: Nasogastric tube tip in proximal side port in the body of the stomach. Gas within a few loops of smal l bowel in the central abdomen one of which remains dilated to 5 cm consistent with persistent small bowel obstruction. Visualized lung bases are clear. Heart size is normal. IMPRESSION: 1. Nasogastric tube in the stomach. 2. Persistent small bowel obstruction. Reviewed, dictated and finalized at location A.
--- NOTE | ~2024-04-02 | XR_ITS ---
EXAMINATION: XR abdomen gastric tube insert DATE: 04/02/2024 06:58 INDICATION: Nasogastric tube placement. TECHNIQUE: An upright view of the abdomen was obtained. COMPARISON: CT abdomen and pelvis 04/02/2024 FINDINGS: The lower abdomen is excluded. There are multiple dilated loops of small bowel. The colon i s decompressed. The nasogastric tube tip is in the stomach. There are surgical clips in left breast. IMPRESSION: 1. Nasogastric tube tip in the stomach. 2. Small bowel obstruction. Reviewed, dictated and finalized at location A.
--- NOTE | ~2024-04-02 | XR_ITS ---
EXAMINATION: XR sm bowel follow through DATE: 04/04/2024 10:18 INDICATION: Small bowel distraction. TECHNIQUE: Oral contrast was administered, and a time course of radiographs of the abdomen was obtain ed. Fluoroscopy of the small bowel was noted performed. Fluoroscopy exposure time was 0 minutes. The total number of images was 5. COMPARISON: CT abdomen and pelvis 04/02/2024 FINDINGS: The nasogastric tube tip is in the stomach. There are multiple dilated loops of small bowel. The colo n is decompressed. At 2 hours, contrast remained in the small bowel. The patient began vomiting, and the nurse returned the tube to suction. IMPRESSION: 1. Dilated small bowel with contrast remaining in the proximal small bowel at 2 hours, consistent wit h small bowel obstruction. Reviewed, dictated and finalized at location A. IMPRESSION: 1. Dilated small bowel with contrast remaining in the proximal small bowel at 2 hours, consistent with small bowel obstruction.
--- NOTE | ~2024-04-02 | XR_ITS ---
EXAMINATION: XR abdomen/kub 1V DATE: 04/19/2024 08:38 INDICATION: Nausea and vomiting. TECHNIQUE: A supine view of the abdomen on 2 radiographs was obtained. COMPARISON: CT abdomen and pelvis 04/02/2024, small bowel series 04/16/2024 FINDINGS: There are multiple dilated loops of small bowel. The colon is decompressed. IMPRESSION: 1. Persistently dilated small bowel, likely adynamic ileus. Reviewed, dictated and finalized at location A. O INSTRUCTOR
--- NOTE | ~2024-04-02 | XR_ITS ---
EXAMINATION: XR abdomen/kub 1V DATE: 04/10/2024 12:49 INDICATION: Abdominal pain and distention TECHNIQUE: A supine view of the abdomen was obtained. COMPARISON: None. FINDINGS: There are few gas-filled but not frankly dilated loops of small bowel in the abdomen. Moderate amount of stool in the transverse colon. Midline surgical clips at the lower abdomen. Suture line in the ce ntral abdomen. No evident free intraperitoneal gas. Visualized lower lungs are clear. Heart size is n ormal. Distal tip of a central venous catheter extends caudally to the level of the superior cavoatri al junction. IMPRESSION: 1. Gas within several none dilated loops of small bowel which could represent a postoperative ileus. Reviewed, dictated and finalized at location A.
--- NOTE | ~2024-04-02 | US_ITS ---
EXAMINATION: US venous doppler [facility] DATE: 04/18/2024 19:34 INDICATION: Weakness TECHNIQUE: Grayscale ultrasound images without and with compression and Doppler ultrasound images of the bilateral lower extremity veins were obtained. COMPARISON: None. FINDINGS: The visualized portions of right common femoral vein, profunda (deep) femoral vein, femoral vein, pop liteal vein, peroneal veins, posterior tibial veins, and greater saphenous vein outflow are patent. The visualized portions of left common femoral vein, profunda femoral vein, femoral vein, popliteal v ein, peroneal veins, posterior tibial veins, and greater saphenous vein outflow are patent. IMPRESSION: 1. No deep venous thrombosis. Reviewed, dictated and finalized at location A. R MECHANIC
--- NOTE | ~2024-04-02 | XR_ITS ---
EXAMINATION: XR abdomen obstructive series DATE: 04/03/2024 08:20 INDICATION: Small bowel obstruction TECHNIQUE: Supine and upright views of the abdomen. FINDINGS: CT dated 04/02/2024 The visualized lung parenchyma is normal.. There is obstructive small bowel gas pattern. There are ai r-fluid levels. NG tube in the stomach. Moderate colonic fecal loading. There is no free air. Modera te lumbar spondylosis. Moderate osteoarthritis of the hips. IMPRESSION: 1. Small bowel obstruction. Reviewed, dictated and finalized at location B. IMPRESSION: 1. Small bowel obstruction.
--- NOTE | ~2024-04-02 | CT_ITS ---
EXAMINATION: CT abdomen pelvis w con DATE: 04/02/2024 04:29 INDICATION: Abdominal pain. TECHNIQUE: Computed tomography (CT) of the abdomen and pelvis was performed with 100 mL Omnipaque 350 intravenous contrast. Automated exposure control and iterative reconstruction technique were employe d. The dose-length product was 375.12 mGy-cm. COMPARISON: Chest CT 09/07/2023 FINDINGS: The visualized portions of the lung bases demonstrate mild atelectasis. No pleural effusion . There is left atrial enlargement of the heart. There are coronary artery calcifications. No pericar dial effusion. The liver, spleen, pancreas, and adrenal glands are normal. There are cysts in the kid neys measuring up to 4.9 cm on the right. There is gas in the bladder lumen, likely from recent instr umentation. There is diverticulosis of the colon without evidence of diverticulitis. The appendix is not visualized. There are multiple dilated loops of small bowel with transition point in right abdome n, consistent with obstruction. There is a large distribution of mesenteric edema involving the dilat ed loops. There is calcified atherosclerosis of the aorta and many of the other arteries. There is tr angel pelvic ascites. There are no pathologically enlarged lymph nodes. There is moderate thoracic spon dylosis and mild lumbar spondylosis. There is a chronic compression fracture of T12. IMPRESSION: 1. Small bowel obstruction with transition point in right abdomen. Reviewed, dictated and finalized at location A.
--- NOTE | ~2024-04-02 | XR_ITS ---
EXAMINATION: XR sm bowel follow through DATE: 04/16/2024 14:29 INDICATION: Small bowel obstruction. TECHNIQUE: Oral contrast was administered, and a time course of radiographs of the abdomen was obtain ed. Fluoroscopy of the small bowel was not performed. Fluoroscopy exposure time was 0 minutes. The to cristine number of images was 6. COMPARISON: CT abdomen and pelvis 04/02/2024 FINDINGS: The nasogastric tube tip is in the stomach. Skin jesse are noted. There are multiple dilated loops of small bowel. Transit time from the stomach to proximal colon was approximately 1 hour. IMPRESSION: 1. Dilated small bowel with prompt passage of contrast to the colon, consistent with adynamic ileus. Reviewed, dictated and finalized at location A. K CLERK
--- NOTE | ~2024-04-02 | XR_ITS ---
XR chest 1V portable 04/18/2024 11:11 Indication: Weakness and shortness of breath Procedure: AP portable chest Comparison: 09/06/2023 Findings: Shallow inspiration with crowding of the pulmonary vessels. Left basilar atelectasis. No fo alo pneumonia, edema, significant effusion or pneumothorax. PICC line tip in the SVC. Impression: 1: Left basilar atelectasis. Reviewed, dictated and finalized at location B. ICAL STAFF RN Impression: 1: Left basilar atelectasis.
--- NOTE | ~2024-04-02 | XR_ITS ---
EXAMINATION: XR abdomen/kub 1V DATE: 04/14/2024 15:16 INDICATION: Nausea and vomiting. TECHNIQUE: A supine view of the abdomen on 2 radiographs was obtained. COMPARISON: Abdomen radiographs 04/10/2024, CT abdomen and pelvis 04/02/2024 FINDINGS: There are multiple dilated loops of small bowel. The colon is normal in caliber. Skin stapl es are noted. IMPRESSION: 1. Dilated small bowel, likely adynamic ileus. Reviewed, dictated and finalized at location A. MANAGER
--- NOTE | ~2024-04-02 | XR_ITS ---
EXAMINATION: XR abdomen gastric tube insert DATE: 04/14/2024 15:54 INDICATION: Nasogastric tube placement. TECHNIQUE: A supine view of the abdomen was obtained. COMPARISON: CT abdomen and pelvis 04/02/2024 FINDINGS: The lower abdomen is excluded. The nasogastric tube tip is in the stomach. A left upper ext remity peripherally inserted central venous catheter (PICC) is seen with tip at the superior cavoatri al junction. Skin jesse are noted. IMPRESSION: 1. Nasogastric tube tip in the stomach. Reviewed, dictated and finalized at location A. AND FRAME MAN
[2024-04-02 03:44] LABS: Basophils Absolute Auto 0.1 K/mm3 (0.0-0.1); Basophils Percent Auto 0.3 % (0.2-1.2); Eosinophils Absolute Auto 0.3 K/mm3 (0-0.3); Eosinophils Percent Auto 2.1 % (0-4.4); Hematocrit 45.4 % (37.0-47.0); Hemoglobin 15.1 g/dL (12.0-15.0); Immature Granulocyte Absolute 0.07 K/mm3 (0.00-0.031); Immature Granulocyte Percent A 0.5 % (0-0.5); Lymphocytes Absolute Auto 1.89 K/mm3 (0.9-3.2); Lymphocytes Percent Auto 12.5 % (18.3-44.2); Mean Corpuscular HGB Conc 33.3 g/dl (32-36); Mean Corpuscular Hemoglobin 30.1 pg (26-34); Mean Corpuscular Volume 90.6 fl (80-100); Mean Platelet Volume 10.5 fl (7.4-10.4); Monocytes Absolute Auto 0.9 K/mm3 (0.1-0.6); Monocytes Percent Auto 6.2 % (2.6-8.5); Neutrophils Absolute Auto 11.8 K/mm3 (1.3-6.7); Neutrophils Percent Auto 78.4 % (45.5-73.1); Platelet Count Result 200 k/mm3 (150-375); Red Blood Count 5.01 M/mm3 (4.2-5.4); Red Cell Distribution Width 14.4 % (11.5-14.5); White Blood Count 15.1 K/mm3 (4.5-10.0)
[2024-04-02 03:54] LABS: Lactic Acid Reflex 1.4 mmol/L (0.7-2.0); Magnesium 1.9 mg/dL (1.6-2.3)
[2024-04-02] MEDS: SODIUM CHLORIDE 0.9% IV 1,000 ML 999 ML IV CONT (03:55)
[2024-04-02] MEDS: ONDANSETRON INJ 4 MG/2 ML VIAL IV PUSH ×2 (03:55→22:14)
[2024-04-02 04:03] LABS: Alanine Aminotransferase 28 U/L (6-35); Albumin Level 4.4 g/dL (3.5-5.1); Alkaline Phosphatase 224 U/L (38-126); Anion Gap 11 mmol/L (4-12); Aspartate Amino Transferase 37 U/L (14-36); Bilirubin,Total 1.1 mg/dL (0.2-1.3); Blood Urea Nitrogen 40 mg/dL (7-17); Calcium 9.3 mg/dL (8.4-10.2); Carbon Dioxide 27 mmol/L (22-30); Chloride 98 mmol/L (98-107); Estimated CRCL calculation 39 ml/min; Estimated Glomerular Filt Rate 55; Glucose 239 mg/dL (65-110); Lipase 141 U/L (23-300); Potassium 3.6 mmol/L (3.4-5.0); Sodium 136 mmol/L (137-145)
[2024-04-02 04:57] LABS: Add Urine Microscopic? YES; Appearance Urine Clear (Clear); Bacteria Urine 4+ /hpf; Bilirubin Urine Negative (Negative); Blood Urine Non-Hemolyzed Trace (Negative); Color Urine Yellow (Yellow); Glucose Urine UA 2+ mg/dL (Negative); Ketones Urine Trace mg/dL (Negative); Leukocyte Esterase Ur 2+ LEU/UL (Negative); Nitrate Urine Positive (Negative); Non Pathogenic Casts 0-2; Protein Urine 1+ mg/dL (Negative); Specific Grav Ur 1.031 (1.001-1.035); Squamous Epithelial Cell Urine None Seen /hpf (Few); WBC Urine >100 /hpf (0-3); pH Urine 7.5 (5.0-9.0)
--- NOTE | 2024-04-02 05:12 | PC.NURSE ---
Dr. Marx verbally states RN does not have to get blood cultures before starting antibiotics due to the not being septic.
[2024-04-02] MEDS: MORPHINE SULFATE (*CRX) 2 MG/ML INJ IV PUSH (05:21)
[2024-04-02] MEDS: levoFLOXacin 750 MG/D5W 150 ML 750 MG/150 ML BAG 100 MG IVPB (05:21)
[2024-04-02] MEDS: FAMOTIDINE 20 MG/2 ML VIAL IV PUSH (05:21)
[2024-04-02] MEDS: METOCLOPRAMIDE HCL INJ 10 MG/2 ML VIAL IV PUSH (05:21)
[2024-04-02] MEDS: diphenhydrAMINE HCl INJ 50 MG/ML VIAL 25 MG IV PUSH (05:21)
--- NOTE | 2024-04-02 06:09 | ED_ITS ---
HPI - Abdominal Pain General Chief Complaint: Abdominal Pain Stated Complaint: abd pain Time Seen by Provider: 04/02/24 03:03 History of Present Illness HPI narrative: Patient is a 73-year-old female who presents to the emergency department this morning complaining of diffuse abdominal pain, abdominal distension, nausea and vomiting. Patient admits to history of a small-bowel obstruction in 2009 status post an ex lap. Denies any urinary symptoms including dysuria or hematuria, denies any recent diarrhea. Patient states that she had a small bowel movement before coming into the emergency. Denies any fevers or chills at home. No additional symptoms or concerns at this time. Related Data Home Medications Medication Instructions Recorded Confirmed amlodipine 10 mg tablet 10 mg PO DAILY 02/05/21 09/06/23 anastrozole 1 mg tablet 1 mg PO DAILY 02/05/21 09/06/23 fenofibrate 160 mg tablet 160 mg PO DAILY 02/05/21 09/06/23 rosuvastatin 40 mg tablet 40 mg PO DAILY 02/05/21 09/06/23 erythromycin 2 % topical solution 1 ml topical TID PRN Itching 05/01/22 09/06/23 ondansetron HCl 4 mg tablet 4 mg PO Q4H PRN Nausea 05/01/22 09/06/23 pregabalin 150 mg capsule (Lyrica) 300 mg PO BID 05/01/22 09/06/23 levothyroxine 100 mcg tablet 100 mcg PO DAILY 05/17/22 09/06/23 oxycodone-acetaminophen 5 mg-325 1 tablet PO Q6H PRN Pain, Moderate 05/17/22 09/06/23 mg tablet Colace 100 mg PO BID 09/06/23 09/06/23 Refresh Tears 1 drp EACH EYE QID PRN Dry Eyes 09/06/23 09/06/23 memantine 5 mg tablet 5 mg PO BID 09/06/23 09/06/23 naproxen 375 mg tablet 375 mg PO DAILY PRN Pain, Mild 09/06/23 09/06/23 triamcinolone acetonide 0.1 % 1 applic topical BID PRN Itching 09/06/23 09/06/23 topical ointment Allergies Allergy/AdvReac Type Severity Reaction Status Date / Time gemfibrozil Allergy Intermediate Rash Verified 09/06/23 12:28 hydrochlorothiazide Allergy Intermediate Rash Verified 09/06/23 12:28 irbesartan Allergy Intermediate Hives Verified 09/06/23 12:28 niacinamide Allergy Intermediate Rash Verified 09/06/23 12:28 amoxicillin [From Augmentin] AdvReac Intermediate Diarrhea Verified 09/06/23 12:28 clavulanic acid AdvReac Intermediate Diarrhea Verified 09/06/23 12:28 [From Augmentin] hydrocodone AdvReac Intermediate Dizziness Verified 09/06/23 12:28 lisinopril AdvReac Intermediate Dizziness Verified 09/06/23 12:28 Review of Systems Review of Systems: All systems are reviewed and are negative unless stated otherwise in the HPI. [facility] Past Medical History Medical History Atrial fibrillation Breast cancer Bullous pemphigoid Diabetes mellitus Essential hypertension Hyperlipidemia Hypothyroidism Hypothyroidism Iron deficiency anemia MGUS (monoclonal gammopathy of unknown significance) Shingles Small bowel obstruction Multiple small-bowel obstructions over the course of 20+ years. Surgical History Surgical History History of exploratory laparotomy (~2009) Due to small-bowel obstruction History of lumpectomy of right breast Hx of cholecystectomy Family History Family History Mother , in her 90s Dementia Father , at age 72 Coronary artery disease Hx of CABG Social History Social History Social History: She lives in [place] with her of 44 years. They have 2 children. She is a former smoker but ?did not smoke that much?. She she does not drink alcohol. 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 Healthcare power of sports attorney: Smoking status: Former smoker Alcohol intake: former Alcohol use details: occasional glass of wine Substance use: never Substance use type: does not use Do You Feel Safe in your Home?: Yes Lack of Transportation: No Lack of Food: Never True Current Housing: I Have Housing Concerned About Future Housing: No Difficulty Paying Gas/Electric Bills: No Difficulty Paying for Meds: No Currently Unemployed: No Education: Decline to Answer Difficulty w/ Childcare or Family Care: No Living arrangements: with family Gender identity (if verbalized by the patient): Female Spiritual care concerns: No Exam Narrative: General: Alert, awake, afebrile, in no acute distress, dry heaving. HEENT: PERRL, no rhinorrhea, no post nasal drip, oropharynx clear. Cardiovascular: Regular rate and rhythm, no murmurs, rubs or gallops, no peripheral edema. Respiratory: Clear to auscultation bilaterally, no tachypnea, no wheezing, no rhonchi, no rubs, no respiratory distress. Abdomen: Soft, very distended, diffuse tenderness to palpation, no rebound, no guarding, no peritoneal signs. Musculoskeletal: No joint swelling or deformity, normal muscle tone. Skin: No rashes or petechia, no signs of infection. Neurological: Alert and oriented to person, place, and time. Follows all commands. No focal deficits, speech is clear and fluent. Course Vital Signs Vital signs: Vital Signs Temperature 97.0 F L 04/02/24 03:06 Pulse Rate 104 H 04/02/24 03:06 Respiratory Rate 20 04/02/24 03:06 Blood Pressure 141/83 H 04/02/24 03:06 Pulse Oximetry 98 04/02/24 03:06 Oxygen Delivery Room Air 04/02/24 03:06 Temperature 97.0 F L 04/02/24 03:06 Pulse Rate 99 04/02/24 05:10 Respiratory Rate 18 04/02/24 05:10 Blood Pressure 137/89 04/02/24 05:10 Pulse Oximetry 99 04/02/24 05:10 Oxygen Delivery Room Air 04/02/24 03:06 MDM - Abdominal Pain MDM Narrative Medical decision making narrative: The patient was evaluated by myself in the emergency department. History is obtained from patient who is an independent historian and physical exam was performed. External medical records were reviewed at this time. IV was established and pertinent tests were ordered. Patient was administered 1 L IV fluid bolus with normal saline, 4 mg of IV Zofran a for nausea and 4 mg of IV morphine for pain. Patient continues to feel nauseous at this time 10 mg of IV Reglan and 25 mg of IV Benadryl were administered. Laboratory results obtained revealing a leukocytosis of 15, alkaline phosphatase of 224, otherwise unremarkable. Urinalysis revealed a urinary tract infection nitrate positive. At this time patient was administered 750 mg of IV levofloxacin due to a penicillin allergy. Imaging studies obtained included CT abdomen pelvis with IV contrast which was independently interpreted by me revealing a small-bowel obstruction with a transition point in the right abdomen, which is pending final radiology interpretation. At this time patient was informed of these findings at bedside, made NPO and started on maintenance fluids with LR rate of 100 cc/hour. Order for NG tube was placed. Case was discussed with the on-call general surgeon Dr. Friend at 0615 and he agreed to evaluate the patient. Case was discussed with the on-call hospitalist Dr. Rowell at 0620 and she accepted admission. Differential diagnosis considerations include small-bowel obstruction, gastroenteritis, diverticulitis, pyelonephritis. Comorbidities impacting this visit include history of ex lap and SBO. I have evaluated and discussed social determinants of health with the patient that could potentially impact subsequent diagnosis and treatment plans. On repeat assessment of the patient, reevaluation revealed that the patient is doing well and is in no acute distress. Patient symptoms have improved since she arrived to our emergency department. Repeat vital signs were all reviewed and noted to be stable. Differential diagnosis and treatment plan were discussed with the patient at bedside. Patient agrees with discussion and after shared medical decision making agrees with admission. All questions were answered to the patient's satisfaction. Lab Data 04/02/24 03:34 04/02/24 03:34 Labs: Lab Results 04/02/24 04/02/24 Range/Units 03:34 04:41 WBC 15.1 H (4.5-10.0) K/mm3 RBC 5.01 (4.2-5.4) M/mm3 Hgb 15.1 H D (12.0-15.0) g/dL Hct 45.4 (37.0-47.0) % MCV 90.6 (80-100) fl MCH 30.1 (26-34) pg MCHC 33.3 (32-36) g/dl RDW 14.4 (11.5-14.5) % Plt Count 200 (150-375) k/mm3 MPV 10.5 H (7.4-10.4) fl Immature Gran % (Auto) 0.5 (0-0.5) % Neut % (Auto) 78.4 H (45.5-73.1) % Lymph % (Auto) 12.5 L (18.3-44.2) % [place] % (Auto) 6.2 (2.6-8.5) % Eos % (Auto) 2.1 (0-4.4) % Baso % (Auto) 0.3 (0.2-1.2) % Lymph # (Auto) 1.89 (0.9-3.2) K/mm3 [place] # (Auto) 0.9 H (0.1-0.6) K/mm3 Eos # (Auto) 0.3 (0-0.3) K/mm3 Baso # (Auto) 0.1 (0.0-0.1) K/mm3 Abs Immat Gran (auto) 0.07 H (0.00-0.031) K/mm3 Absolute Neuts (auto) 11.8 H (1.3-6.7) K/mm3 Absolute Nucleated RBC 0.000 (0.0-0.012) K/mm3 Nucleated RBC % 0.0 (0.0-0.2) % Sodium 136 L (137-145) mmol/L Potassium 3.6 (3.4-5.0) mmol/L Chloride 98 (98-107) mmol/L Carbon Dioxide 27 (22-30) mmol/L Anion Gap 11 (4-12) mmol/L BUN 40 H D (7-17) mg/dL Creatinine 1.00 (0.7-1.0) mg/dL Estim Creat Clear Calc 39 ml/min Estimated GFR 55 L (59 - ) Glucose 239 H (65-110) mg/dL Lactic Acid 1.4 (0.7-2.0) mmol/L Calcium 9.3 (8.4-10.2) mg/dL Magnesium 1.9 (1.6-2.3) mg/dL Total Bilirubin 1.1 (0.2-1.3) mg/dL AST 37 H (14-36) U/L ALT 28 (6-35) U/L Alkaline Phosphatase 224 H (38-126) U/L Total Protein 8.0 (6.3-8.2) g/dL Albumin 4.4 (3.5-5.1) g/dL Lipase 141 (23-300) U/L Urine Color Yellow (Yellow) Urine Appearance Clear (Clear) Urine pH 7.5 (5.0-9.0) Ur Specific [place] 1.031 (1.001-1.035) Urine Protein 1+ H (Negative) mg/dL Urine Glucose (UA) 2+ H (Negative) mg/dL Urine Ketones Trace H (Negative) mg/dL Ur Blood (Man) Non-hemolyzed trace H (Negative) Urine Nitrate Positive H (Negative) Urine Bilirubin Negative (Negative) Urine Urobilinogen 1.0 (<2.0) mg/dL Leukocyte Esterase Rfl 2+ H (Negative) FREDY/UL Urine RBC 3-5 H (0-2) /hpf Urine WBC >100 H (0-3) /hpf Ur Squamous Epith Cells None seen (Few) /hpf Urine Bacteria 4+ H /hpf Urine Casts 0-2 Imaging Data Radiologist's impression: ITS Impressions Abdomen/Pelvis CT 04/02/24 05:56 IMPRESSION: 1. Small bowel obstruction with transition point in right abdomen. Discharge Plan Discharge Clinical Impression: Abdominal pain, Nausea & vomiting, Complete obstruction of small intestine, Acute UTI (urinary tract infection) Patient Disposition: Still a Patient Condition: Stable Instructions: Antibiotic Form Prescriptions: No Action erythromycin 2 % solution 1 ml topical TID PRN (Reason: Itching) Rx Instructions: To left eye ondansetron HCl 4 mg tablet 4 mg PO Q4H PRN (Reason: Nausea) pregabalin [Lyrica] 150 mg capsule 300 mg PO BID levothyroxine 100 mcg Tablet 100 mcg PO DAILY oxycodone-acetaminophen 5-325 mg Tablet 1 tablet PO Q6H PRN (Reason: Pain, Moderate) Rx Instructions: 1 to 2 tablets prn q6 naproxen 375 mg tablet 375 mg PO DAILY PRN (Reason: Pain, Mild) triamcinolone acetonide 0.1 % ointment 1 applic TOPICAL BID PRN (Reason: Itching) memantine 5 mg tablet 5 mg PO BID Colace 100 mg PO BID Refresh Tears 1 drp EACH EYE QID PRN (Reason: Dry Eyes) nitrofurantoin macrocrystal 100 mg capsule 100 mg PO Q12H Qty: 10 0RF Rx Instructions: must administer with a meal/food anastrozole 1 mg tablet 1 mg PO DAILY amlodipine 10 mg tablet 10 mg PO DAILY rosuvastatin 40 mg tablet 40 mg PO DAILY fenofibrate 160 mg tablet 160 mg PO DAILY Follow-up/Referrals: Pierre,DO Akhil [Primary Care Provider] - Time of Disposition: 06:10
--- NOTE | 2024-04-02 07:25 | ADMGEN ---
This patient, Josephine Kong, was admitted to Medical Room 254- at 0704. Patient/family oriented to hospital policies and general routines including ID bracelet, bed and alarms, visiting hours, pain management, procedures, bathroom and other care routines, personal items, smoking policy, room service/diet, and visiting hours. Information on how to activate the Rapid Response Team has been discussed. Patient/Family are encouraged to report perceived risks to care and to ask questions if they do not understand what they are told or what they should do.
[2024-04-02 08:16] LABS: Glucose Point of Care 234 mg/dl (65-105)
[2024-04-02] MEDS: LACTATED RINGERS 1,000 ML 100 ML IV CONT (08:40)
--- NOTE | 2024-04-02 09:16 | P.CONGS_ITS ---
Assessment and Plan Assessment and plan (1) Small bowel obstruction: Code(s): K56.609 - Unspecified intestinal obstruction, unspecified as to partial versus complete obstruction Status: Acute Assessment and Plan: CT scan with evidence of small bowel obstruction and transition point in the right abdomen. She has a history of multiple previous abdominal surgeries, including adhesiolysis for a small-bowel obstruction about 10 years ago. Her abdominal pain has improved some, but she is still very tender on exam. She is hemodynamically stable and lactic acid was normal. We would recommend to continue conservative management with NG tube decompression bowel rest, IV fluids, and analgesics for now. Will order an obstructive series tomorrow morning. May consider water-soluble small-bowel series in the next few days depending on how she progresses. I discussed with the patient that this may resolved with conservative management, but could require surgical exploration if she is not improving. (2) Acute UTI (urinary tract infection): Code(s): N39.0 - Urinary tract infection, site not specified Status: Acute Assessment and Plan: She was given a dose of Levofloxacin in the ER. Continue antibiotics per primary service. Urine cx pending. (3) Essential hypertension: Code(s): I10 - Essential (primary) hypertension Status: Acute (4) Hypothyroidism: Qualifiers: Hypothyroidism type: acquired Qualified Code(s): E03.9 - Hypothyroidism, unspecified Code(s): E03.9 - Hypothyroidism, unspecified Status: Acute (5) Diabetes mellitus: Code(s): E11.9 - Type 2 diabetes mellitus without complications Status: Acute Plan I have discussed the patient's case and plan of care with Dr. Friend. Thank you for allowing us to see the patient in consultation and we will continue to follow along with you. 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 The patient is oriented but a poor historian and refers to her to provide majority of the history, who was at the bedside. She was otherwise in her usual state of health yesterday morning when waking up. She had eaten a cheeseburger and fries with cheese curds for lunch and was feeling well. In the evening, she developed diffuse abdominal pain that was severe. She had severe nausea, but no vomiting. She reports having chronic nausea for many years since she was young. She has a history of small-bowel obstructions and felt like her symptoms were similar to previous episodes. Her pain persisted without any alleviating factors, Therefore she came into the ED for evaluation. [place] [address], BUN 40, creatinine 1.0, glucose 239, lactic acid 1.4. UA suggests UTI. CT scan of the abdomen and pelvis shows evidence of a small-bowel obstruction with transition point in the right abdomen. She was admitted to the hospitalist service. She has had an NG tube placed, which has about 500 cc of output in the canister. Her abdominal pain has improved slightly since admission. She reports small amount of flatus this morning. Her last bowel movement was yesterday morning and reportedly normal. She has been hospitalized for at least 2 small-bowel obstructions in the past, with the most recent being 10 years ago when she required surgery. She had an exploratory laparotomy with adhesiolysis at [facility]. She also had exploratory surgery as a child with an appendectomy. Other abdominal surgeries include tubal ligation and cholecystectomy. She also takes about 4 [place] daily for chronic left facial pain following Shingles and bullous pemphigoid a few years ago. Review of Systems Review of Systems: All systems reviewed & are unremarkable except as noted in HPI and below PMFSH Past Medical History Medical History Atrial fibrillation Breast cancer Bullous pemphigoid Diabetes mellitus Essential hypertension Hyperlipidemia Hypothyroidism Hypothyroidism Iron deficiency anemia MGUS (monoclonal gammopathy of unknown significance) Shingles Small bowel obstruction Multiple small-bowel obstructions over the course of 20+ years. Surgical History Surgical History History of appendectomy History of exploratory laparotomy (~2009) Due to small-bowel obstruction History of lumpectomy of right breast History of tubal ligation Hx of cholecystectomy Family History Family History Mother , in her 90s Dementia Father , at age 72 Coronary artery disease Hx of CABG Social History Social History Social History: She lives in [place] with her of 44 years. They have 2 children. She is a former smoker but ?did not smoke that much?. She she does not drink alcohol. 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 Healthcare power of civil rights attorney: Years smoked: 47 Smoking status: Former smoker Tobacco type: cigarettes Second hand tobacco smoke exposure: Yes Alcohol intake: never Alcohol use details: occasional glass of wine Substance use: current Substance use type: marijuana Last use: t-2 Do You Feel Safe in your Home?: Yes Lack of Transportation: No Lack of Food: Never True Current Housing: I Have Housing Concerned About Future Housing: No Difficulty Paying Gas/Electric Bills: No Difficulty Paying for Meds: No Currently Unemployed: No Education: High School Diploma/GED Difficulty w/ Childcare or Family Care: No Living arrangements: with family Gender identity (if verbalized by the patient): Female Spiritual care concerns: No Meds Home Medications and Allergies Home Medications Medication Instructions Recorded Confirmed Type amlodipine 10 mg tablet 10 mg PO DAILY 02/05/21 04/02/24 History fenofibrate 160 mg tablet 160 mg PO DAILY 02/05/21 04/02/24 History rosuvastatin 40 mg tablet 40 mg PO DAILY 02/05/21 04/02/24 History erythromycin 2 % topical solution 1 ml topical TID Itching 05/01/22 04/02/24 History ondansetron HCl 4 mg tablet 4 mg PO Q4H PRN Nausea 05/01/22 04/02/24 History pregabalin 150 mg capsule (Lyrica) 600 mg PO Q12H 05/01/22 04/02/24 History levothyroxine 100 mcg tablet 100 mcg PO DAILY 05/17/22 04/02/24 History oxycodone-acetaminophen 5 mg-325 1 tablet PO Q6H PRN Pain, Moderate 05/17/22 04/02/24 History mg tablet memantine 5 mg tablet 5 mg PO BID 09/06/23 04/02/24 History naproxen 375 mg tablet 375 mg PO Q72H PRN Pain, Mild 09/06/23 04/02/24 History triamcinolone acetonide 0.1 % 1 applic topical BID PRN if open 09/06/23 04/02/24 History topical ointment areas diphenhydramine HCl 25 mg capsule 25 mg PO Q6H PRN Itching 04/02/24 04/02/24 History (Allergy (diphenhydramine)) docusate sodium 100 mg capsule 100 mg PO BID 04/02/24 04/02/24 History (Colace) ergocalciferol (vitamin D2) 50,000 50,000 unit PO WEEKLY 04/02/24 04/02/24 History unit tablet glipizide 10 mg tablet, extended 10 mg PO DAILY 04/02/24 04/02/24 History release 24 hr hydrocortisone 2.5 % topical cream 1 applic topical BID 04/02/24 04/02/24 History multivitamin 1 tablet PO DAILY 04/02/24 04/02/24 History polyvinyl alcohol-povidone 1.4 1 drp ophthalmic (eye) QID PRN Dry 04/02/24 04/02/24 History %-0.6 % eye drops Eyes silver sulfadiazine 1 % topical 1 applic topical BID PRN blisters 04/02/24 04/02/24 History cream Allergies Allergy/AdvReac Type Severity Reaction Status Date / Time gemfibrozil Allergy Intermediate Rash Verified 04/02/24 07:51 hydrochlorothiazide Allergy Intermediate Rash Verified 04/02/24 07:51 irbesartan Allergy Intermediate Hives Verified 04/02/24 07:51 niacinamide Allergy Intermediate Rash Verified 04/02/24 07:51 amoxicillin [From Augmentin] AdvReac Intermediate Diarrhea Verified 04/02/24 07:51 clavulanic acid AdvReac Intermediate Diarrhea Verified 04/02/24 07:51 [From Augmentin] hydrocodone AdvReac Intermediate Dizziness Verified 04/02/24 07:51 lisinopril AdvReac Intermediate Dizziness Verified 04/02/24 07:51 Vital Signs Vital Signs - 24 hr 04/02/24 03:06 04/02/24 05:10 04/02/24 06:31 Temperature 97.0 F L Pulse Rate 104 H 99 115 H Respiratory Rate 20 18 18 Blood Pressure 141/83 H 137/89 124/78 Pulse Oximetry 98 99 98 Oxygen Delivery Room Air 04/02/24 07:50 04/02/24 08:20 Temperature 97.7 F 97.7 F Pulse Rate 100 100 Respiratory Rate 16 16 Blood Pressure 126/73 126/73 Pulse Oximetry 96 96 Oxygen Delivery Exam Const: General: no acute distress and uncomfortable (Due to abdominal pain) Nutritional Appearance: average body habitus Orientation/consciousness: patient oriented x3 HENMT: Head: normocephalic and atraumatic Ears: hearing grossly normal bilaterally Mouth: Yes moist mucous membranes Eyes: General: appearance normal, both eyes and all related structures Pupils: Equal, round and reactive pupils present Neck: Neck: normal visual inspection and full ROM Resp: Effort & Inspection: no respiratory distress Auscultation: clear to auscultation bilaterally Cardio: Rate: regular rate Rhythm: regular rhythm Heart sounds: S1 normal heart sound present and S2 normal heart sound present Peripheral pulses: Peripheral pulses 2+ throughout GI: Inspection: distended, scar (3 vertical scars from the midline to the right mid abdomen) and no visible herniation GI Palp: Yes Tenderness to palpation present (GI) (Diffusely tender throughout with guarding), Yes Guarding due to palpation present (GI), Yes No hepatosplenomegaly present and No Rebound tenderness present Auscultation: Hypoactive bowel sounds present Skin: General skin exam: normal color Neuro: General: moves all extremities and no focal motor deficits Speech: normal speech Motor exam (neuro): 5/5 motor strength present throughout Extrem: General: normal to inspection and no edema Psych: Mental Status: mental status grossly normal Attitude: cooperative Insight: Good insight present (Psych) Judgement: Good judgement present (Psych) Results Labs 04/02/24 03:34 04/02/24 03:34 Labs: Abnormal lab results 04/02/24 04/02/24 04/02/24 Range/Units 03:34 04:41 08:08 WBC 15.1 H (4.5-10.0) K/mm3 Hgb 15.1 H D (12.0-15.0) g/dL MPV 10.5 H (7.4-10.4) fl Neut % (Auto) 78.4 H (45.5-73.1) % Lymph % (Auto) 12.5 L (18.3-44.2) % [place] # (Auto) 0.9 H (0.1-0.6) K/mm3 Abs Immat Gran (auto) 0.07 H (0.00-0.031) K/mm3 Absolute Neuts (auto) 11.8 H (1.3-6.7) K/mm3 Sodium 136 L (137-145) mmol/L BUN 40 H D (7-17) mg/dL Estimated GFR 55 L (59 - ) Glucose 239 H (65-110) mg/dL POC Capillary Glucose 234 H (65-105) mg/dl AST 37 H (14-36) U/L Alkaline Phosphatase 224 H (38-126) U/L Urine Protein 1+ H (Negative) mg/dL Urine Glucose (UA) 2+ H (Negative) mg/dL Urine Ketones Trace H (Negative) mg/dL Ur Blood (Man) Non-hemolyzed trace H (Negative) Urine Nitrate Positive H (Negative) Leukocyte Esterase Rfl 2+ H (Negative) FREDY/UL Urine RBC 3-5 H (0-2) /hpf Urine WBC >100 H (0-3) /hpf Urine Bacteria 4+ H /hpf Diabetes panel 04/02/24 Range/Units 03:34 Sodium 136 L (137-145) mmol/L Potassium 3.6 (3.4-5.0) mmol/L Chloride 98 (98-107) mmol/L Carbon Dioxide 27 (22-30) mmol/L BUN 40 H D (7-17) mg/dL Creatinine 1.00 (0.7-1.0) mg/dL Glucose 239 H (65-110) mg/dL Calcium 9.3 (8.4-10.2) mg/dL AST 37 H (14-36) U/L ALT 28 (6-35) U/L Alkaline Phosphatase 224 H (38-126) U/L Total Protein 8.0 (6.3-8.2) g/dL Albumin 4.4 (3.5-5.1) g/dL Calcium panel 04/02/24 Range/Units 03:34 Calcium 9.3 (8.4-10.2) mg/dL Albumin 4.4 (3.5-5.1) g/dL Pituitary panel 04/02/24 Range/Units 03:34 Sodium 136 L (137-145) mmol/L Potassium 3.6 (3.4-5.0) mmol/L Chloride 98 (98-107) mmol/L Carbon Dioxide 27 (22-30) mmol/L BUN 40 H D (7-17) mg/dL Creatinine 1.00 (0.7-1.0) mg/dL Glucose 239 H (65-110) mg/dL Calcium 9.3 (8.4-10.2) mg/dL Adrenal panel 04/02/24 Range/Units 03:34 Sodium 136 L (137-145) mmol/L Potassium 3.6 (3.4-5.0) mmol/L Chloride 98 (98-107) mmol/L Carbon Dioxide 27 (22-30) mmol/L BUN 40 H D (7-17) mg/dL Creatinine 1.00 (0.7-1.0) mg/dL Glucose 239 H (65-110) mg/dL Calcium 9.3 (8.4-10.2) mg/dL Total Bilirubin 1.1 (0.2-1.3) mg/dL AST 37 H (14-36) U/L ALT 28 (6-35) U/L Alkaline Phosphatase 224 H (38-126) U/L Total Protein 8.0 (6.3-8.2) g/dL Albumin 4.4 (3.5-5.1) g/dL All other labs normal. Imaging Additional studies: ITS Impressions Abdomen/Pelvis CT 04/02/24 05:56 IMPRESSION: 1. Small bowel obstruction with transition point in right abdomen. Abdomen X-Ray 04/02/24 07:00 IMPRESSION: 1. Nasogastric tube tip in the stomach. 2. Small bowel obstruction.
--- NOTE | 2024-04-02 09:20 | P.HP_ITS ---
H&P: HPI History of Present Illness Date/Time: 04/02/24 09:20 Chief Complaint: Abdominal pain Narrative: Patient is a 73-year-old female PMHX DM, breast cancer in 2018, TU, JOANNE, UTI,GERD ,Bullous Pemphigoid who presents to the emergency department this morning complaining of diffuse abdominal pain, abdominal distension, nausea and vomiting. Patient admits to history of a small-bowel obstruction in 2009 status post an ex lap. Denies any urinary symptoms including dysuria or hematuria, denies any recent diarrhea. Patient states that she had a small bowel movement before coming into the emergency. Imaging studies obtained included CT abdomen pelvis with IV contrast revealing a small-bowel obstruction with a transition point in the right abdomen, which is pending final radiology interpretation. Currently pt is NPO, NG tube and started on maintenance fluids with LR rate of 100 cc/hour. Surgery is on board. Patient has positive urinalysis and will be started on Levofloxacin. Off Note patient has distant history of 3 small bowel obstruction. First 2 were treated medically. She underwent exploratory laparotomy with a 3rd small bowel obstruction. The obstruction was secondary to adhesions (no colon resection). In regards to abdominal surgeries include open cholecystectomy, appendectomy, ectopic and exploratory laparotomy. Review of Systems Review of Systems: All systems are reviewed and are negative unless stated otherwise in the HPI. [facility] Past Medical History Medical History Atrial fibrillation Breast cancer Bullous pemphigoid Diabetes mellitus Essential hypertension Hyperlipidemia Hypothyroidism Hypothyroidism Iron deficiency anemia MGUS (monoclonal gammopathy of unknown significance) Shingles Small bowel obstruction Multiple small-bowel obstructions over the course of 20+ years. Surgical History Surgical History History of appendectomy History of exploratory laparotomy (~2009) Due to small-bowel obstruction History of lumpectomy of right breast History of tubal ligation Hx of cholecystectomy Family History Family History Mother , in her 90s Dementia Father , at age 72 Coronary artery disease Hx of CABG Social History Social History Social History: She lives in [place] with her of 44 years. They have 2 children. She is a former smoker but ?did not smoke that much?. She she does not drink alcohol. 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 Healthcare power of sustainability consultant: Years smoked: 47 Smoking status: Former smoker Tobacco type: cigarettes Second hand tobacco smoke exposure: Yes Alcohol intake: never Alcohol use details: occasional glass of wine Substance use: current Substance use type: marijuana Last use: t-2 Do You Feel Safe in your Home?: Yes Lack of Transportation: No Lack of Food: Never True Current Housing: I Have Housing Concerned About Future Housing: No Difficulty Paying Gas/Electric Bills: No Difficulty Paying for Meds: No Currently Unemployed: No Education: High School Diploma/GED Difficulty w/ Childcare or Family Care: No Living arrangements: with family Gender identity (if verbalized by the patient): Female Spiritual care concerns: No Meds Home Medications and Allergies Home Medications Medication Instructions Recorded Confirmed Type amlodipine 10 mg tablet 10 mg PO DAILY 02/05/21 04/02/24 History fenofibrate 160 mg tablet 160 mg PO DAILY 02/05/21 04/02/24 History rosuvastatin 40 mg tablet 40 mg PO DAILY 02/05/21 04/02/24 History erythromycin 2 % topical solution 1 ml topical TID Itching 05/01/22 04/02/24 History ondansetron HCl 4 mg tablet 4 mg PO Q4H PRN Nausea 05/01/22 04/02/24 History pregabalin 150 mg capsule (Lyrica) 600 mg PO Q12H 05/01/22 04/02/24 History levothyroxine 100 mcg tablet 100 mcg PO DAILY 05/17/22 04/02/24 History oxycodone-acetaminophen 5 mg-325 1 tablet PO Q6H PRN Pain, Moderate 05/17/22 04/02/24 History mg tablet memantine 5 mg tablet 5 mg PO BID 09/06/23 04/02/24 History naproxen 375 mg tablet 375 mg PO Q72H PRN Pain, Mild 09/06/23 04/02/24 History triamcinolone acetonide 0.1 % 1 applic topical BID PRN if open 09/06/23 04/02/24 History topical ointment areas diphenhydramine HCl 25 mg capsule 25 mg PO Q6H PRN Itching 04/02/24 04/02/24 History (Allergy (diphenhydramine)) docusate sodium 100 mg capsule 100 mg PO BID 04/02/24 04/02/24 History (Colace) ergocalciferol (vitamin D2) 50,000 50,000 unit PO WEEKLY 04/02/24 04/02/24 History unit tablet glipizide 10 mg tablet, extended 10 mg PO DAILY 04/02/24 04/02/24 History release 24 hr hydrocortisone 2.5 % topical cream 1 applic topical BID 04/02/24 04/02/24 History multivitamin 1 tablet PO DAILY 04/02/24 04/02/24 History polyvinyl alcohol-povidone 1.4 1 drp ophthalmic (eye) QID PRN Dry 04/02/24 04/02/24 History %-0.6 % eye drops Eyes silver sulfadiazine 1 % topical 1 applic topical BID PRN blisters 04/02/24 04/02/24 History cream Allergies Allergy/AdvReac Type Severity Reaction Status Date / Time gemfibrozil Allergy Intermediate Rash Verified 04/02/24 07:51 hydrochlorothiazide Allergy Intermediate Rash Verified 04/02/24 07:51 irbesartan Allergy Intermediate Hives Verified 04/02/24 07:51 niacinamide Allergy Intermediate Rash Verified 04/02/24 07:51 amoxicillin [From Augmentin] AdvReac Intermediate Diarrhea Verified 04/02/24 07:51 clavulanic acid AdvReac Intermediate Diarrhea Verified 04/02/24 07:51 [From Augmentin] hydrocodone AdvReac Intermediate Dizziness Verified 04/02/24 07:51 lisinopril AdvReac Intermediate Dizziness Verified 04/02/24 07:51 Vital Signs Vital Signs - 24 hr 04/02/24 03:06 04/02/24 05:10 04/02/24 06:31 Temperature 97.0 F L Pulse Rate 104 H 99 115 H Respiratory Rate 20 18 18 Blood Pressure 141/83 H 137/89 124/78 Pulse Oximetry 98 99 98 Oxygen Delivery Room Air 04/02/24 07:50 04/02/24 08:20 Temperature 97.7 F 97.7 F Pulse Rate 100 100 Respiratory Rate 16 16 Blood Pressure 126/73 126/73 Pulse Oximetry 96 96 Oxygen Delivery Exam Narrative: General: Alert, awake, afebrile, in no acute distress, dry heaving. HEENT: PERRL, no rhinorrhea, no post nasal drip, oropharynx clear. Cardiovascular: Regular rate and rhythm, no murmurs, rubs or gallops, no peripheral edema. Respiratory: Clear to auscultation bilaterally, no tachypnea, no wheezing, no rhonchi, no rubs, no respiratory distress. Abdomen: Soft, very distended, diffuse tenderness to palpation, no rebound, no guarding, no peritoneal signs. Musculoskeletal: No joint swelling or deformity, normal muscle tone. Skin: No rashes or petechia, no signs of infection. Neurological: Alert and oriented to person, place, and time. Follows all commands. No focal deficits, speech is clear and fluent. H&P: Results Labs Labs: Short CBC 04/02/24 Range/Units 03:34 WBC 15.1 H (4.5-10.0) K/mm3 Hgb 15.1 H D (12.0-15.0) g/dL Hct 45.4 (37.0-47.0) % Plt Count 200 (150-375) k/mm3 BMP 04/02/24 03:34 Sodium 136 L Potassium 3.6 Chloride 98 Carbon Dioxide 27 BUN 40 H D Creatinine 1.00 Glucose 239 H Calcium 9.3 Liver Function 04/02/24 Range/Units 03:34 Total Bilirubin 1.1 (0.2-1.3) mg/dL AST 37 H (14-36) U/L ALT 28 (6-35) U/L Alkaline Phosphatase 224 H (38-126) U/L Albumin 4.4 (3.5-5.1) g/dL Urine 04/02/24 Range/Units 04:41 Urine Color Yellow (Yellow) Urine Appearance Clear (Clear) Urine pH 7.5 (5.0-9.0) Ur Specific [place] 1.031 (1.001-1.035) Urine Protein 1+ H (Negative) mg/dL Urine Glucose (UA) 2+ H (Negative) mg/dL Assessment and Plan Assessment and plan (1) Abdominal pain: Code(s): R10.9 - Unspecified abdominal pain Status: Acute (2) Nausea & vomiting: Code(s): R11.2 - Nausea with vomiting, unspecified Status: Acute (3) Diabetes mellitus: Code(s): E11.9 - Type 2 diabetes mellitus without complications Status: Acute (4) Small bowel obstruction: Code(s): K56.609 - Unspecified intestinal obstruction, unspecified as to partial versus complete obstruction Status: Acute Plan SBO -CT scan: Small bowel obstruction with transition point in right abdomen. -NPO -NG tube in place -Cont fluids -Surgery following -Off Note patient has distant history of 3 small bowel obstruction. -First 2 were treated medically. She underwent exploratory laparotomy with a 3rd small bowel obstruction. The obstruction was secondary to adhesions (no colon resection). -PSHx :abdominal surgeries include open cholecystectomy, appendectomy, ectopic and exploratory laparotomy. Hospitalist MIPS Advance Care Plan I have confirmed that the patient's Advanced Care Plan is present, code status is documented, or surrogate decision maker is listed in patient medical record.: Yes Medication Reconciliation I have utilized all available resources to obtain, update and review the patients current medications (includes all prescriptions, OTC, herbals, cannabis, and nutritional supplements).: Yes
[2024-04-02 12:03] LABS: Glucose Point of Care 176 mg/dl (65-105)
[2024-04-02] MEDS: MORPHINE SULFATE (*CRX) 4 MG/ML INJ IV PUSH ×3 (12:45→22:19)
[2024-04-02 17:10] LABS: Glucose Point of Care 142 mg/dl (65-105)
[2024-04-02] MEDS: DEXTROSE 5%/0.45% SOD CHL 1,000 ML 55 ML IV CONT (19:44)
[2024-04-03] MEDS: MORPHINE SULFATE (*CRX) 4 MG/ML INJ IV PUSH ×5 (04:10→23:37)
[2024-04-03] MEDS: ONDANSETRON INJ 4 MG/2 ML VIAL IV PUSH (04:10)
[2024-04-03 05:55] LABS: Hematocrit 37.9 % (37.0-47.0); Hemoglobin 12.1 g/dL (12.0-15.0); Mean Corpuscular HGB Conc 31.9 g/dl (32-36); Mean Corpuscular Hemoglobin 29.7 pg (26-34); Mean Corpuscular Volume 93.1 fl (80-100); Mean Platelet Volume 10.9 fl (7.4-10.4); Platelet Count Result 139 k/mm3 (150-375); Red Blood Count 4.07 M/mm3 (4.2-5.4); Red Cell Distribution Width 14.2 % (11.5-14.5); White Blood Count 11.2 K/mm3 (4.5-10.0)
[2024-04-03 06:00] VITALS: BP 126/56; PULSE 88; RESP 18; TEMP 36.6; O2SAT 96
[2024-04-03 06:13] LABS: Alanine Aminotransferase 21 U/L (6-35); Albumin Level 3.4 g/dL (3.5-5.1); Alkaline Phosphatase 103 U/L (38-126); Anion Gap 7 mmol/L (4-12); Aspartate Amino Transferase 29 U/L (14-36); Bilirubin,Total 1.2 mg/dL (0.2-1.3); Blood Urea Nitrogen 19 mg/dL (7-17); Calcium 8.1 mg/dL (8.4-10.2); Carbon Dioxide 24 mmol/L (22-30); Chloride 103 mmol/L (98-107); Estimated CRCL calculation 55 ml/min; Estimated Glomerular Filt Rate > 60; Glucose 176 mg/dL (65-110); Potassium 3.4 mmol/L (3.4-5.0); Sodium 134 mmol/L (137-145)
[2024-04-03 07:35] LABS: Glucose Point of Care 169 mg/dl (65-105)
[2024-04-03 07:52] VITALS: O2SAT 95
--- NOTE | 2024-04-03 10:04 | PM.IMPN ---
Subjective Date/time seen: 04/03/24 10:04 Objective Data Vital Signs Vital Signs: Vital Signs - 24 hr 04/02/24 14:00 04/02/24 20:00 04/02/24 22:00 Temperature 97.7 F 97.7 F Pulse Rate 97 70 Respiratory Rate 16 18 Blood Pressure 128/70 127/53 L Pulse Oximetry 96 93 Oxygen Delivery Room Air 04/03/24 06:00 04/03/24 07:52 Temperature 97.9 F Pulse Rate 88 Respiratory Rate 18 Blood Pressure 126/56 L Pulse Oximetry 96 95 Oxygen Delivery Room Air Intake/Output Intake/Output: Intake & Output 03/31/24 04/01/24 04/02/24 04/03/24 23:59 23:59 23:59 23:59 Intake Total 1150 Output Total 700 704 Balance 450 -704 Meds/Results Medications: Active Medications Generic Name Dose Route Start Last Admin Trade Name Freq PRN Reason Stop Dose Admin Levofloxacin/Dextrose 750 mg in 150 mls @ 100 mls/hr 04/04/24 06:00 Levaquin 750 Mg/D5w 150 Ml IVPB Q48H SHAKILA Dextrose/Sodium Chloride 1,000 mls @ 55 mls/hr 04/02/24 19:35 04/02/24 19:44 Dextrose 5% Sodium Chloride 0.45% IV CONT 55 mls/hr .[id number] SHAKILA Administration Morphine Sulfate 2 mg 04/02/24 09:22 Morphine Sulfate (*Crx) 2 Mg/Ml Inj IV PUSH Q2H PRN Pain Rated 4-6 Morphine Sulfate 4 mg 04/02/24 09:22 04/03/24 08:30 Morphine Sulfate (*Crx) 4 Mg/Ml Inj IV PUSH 4 mg Q2H PRN Administration Pain Rated 7-10 Ondansetron HCl 4 mg 04/02/24 09:22 04/03/24 04:10 Ondansetron Inj 4 Mg/2 Ml Vial IV PUSH 4 mg Q6H PRN Administration Nausea And Vomiting Radiology Results: ITS Impressions Abdomen/Pelvis CT 04/02/24 05:56 IMPRESSION: 1. Small bowel obstruction with transition point in right abdomen. Abdomen X-Ray 04/03/24 08:26 IMPRESSION: 1. Small bowel obstruction. Labs Labs: Laboratory Results - last 24 hr 04/02/24 04/02/24 04/03/24 11:55 16:56 05:32 WBC 11.2 H RBC 4.07 L Hgb 12.1 D Hct 37.9 MCV 93.1 MCH 29.7 MCHC 31.9 L RDW 14.2 Plt Count 139 L MPV 10.9 H Sodium 134 L Potassium 3.4 Chloride 103 Carbon Dioxide 24 Anion Gap 7 BUN 19 H D Creatinine 0.70 Estim Creat Clear Calc 55 Estimated GFR > 60 Glucose 176 H POC Capillary Glucose 176 H 142 H Calcium 8.1 L Total Bilirubin 1.2 AST 29 ALT 21 Alkaline Phosphatase 103 Total Protein 6.0 L Albumin 3.4 L 04/03/24 07:32 WBC RBC Hgb Hct MCV MCH MCHC RDW Plt Count MPV Sodium Potassium Chloride Carbon Dioxide Anion Gap BUN Creatinine Estim Creat Clear Calc Estimated GFR Glucose POC Capillary Glucose 169 H Calcium Total Bilirubin AST ALT Alkaline Phosphatase Total Protein Albumin
[2024-04-03] MEDS: ONDANSETRON INJ 4 MG/2 ML VIAL 8 MG IV PUSH ×3 (10:23→21:36)
--- NOTE | 2024-04-03 10:36 | P.PNIM_ITS ---
Progress Note: A&P Assessment and Plan (1) Abdominal pain: Code(s): R10.9 - Unspecified abdominal pain Status: Acute (2) Nausea & vomiting: Code(s): R11.2 - Nausea with vomiting, unspecified Status: Acute (3) Diabetes mellitus: Code(s): E11.9 - Type 2 diabetes mellitus without complications Status: Acute (4) Small bowel obstruction: Code(s): K56.609 - Unspecified intestinal obstruction, unspecified as to partial versus complete obstruction Status: Acute Assessment and Plan: * Patient still showing signs of bowel obstruction. Will give Dulcolax suppo sitory today. Gastrografin small-bowel follow-through ordered for tomorrow morning. Discussed given this about 24 more hours to see if obstruction resolves, might need to consider exploratory laparotomy within the next 1-2 days if not resolving. (5) Essential hypertension: Code(s): I10 - Essential (primary) hypertension Status: Acute Plan SBO -CT scan: Small bowel obstruction with transition point in right abdomen. -NPO -NG tube in place -Will give Dulcolax suppository today. -Gastrografin small-bowel follow-through ordered for tomorrow morning. -Cont fluids -Surgery following -Off Note patient has distant history of 3 small bowel obstruction. -First 2 were treated medically. She underwent exploratory laparotomy with a 3rd small bowel obstruction. The obstruction was secondary to adhesions (no colon resection). -PSHx :abdominal surgeries include open cholecystectomy, appendectomy, ectopic and exploratory laparotomy. Subjective Date/time seen: 04/03/24 10:36 Interval history: Feels nauseated. Small-bowel series shows SBO. Surgery evaluated planning Dulcolax suppository today. Gastrografin small-bowel follow-through ordered for tomorrow morning, if obstruction does not resolve possible exploratory laparotomy within next 1-2 days Review of Systems Review of Systems: All systems are reviewed and are negative unless stated otherwise in the HPI. All systems reviewed & are unremarkable except as noted in HPI and below Exam Narrative: General: Alert, awake, afebrile, in no acute distress, dry heaving. HEENT: PERRL, no rhinorrhea, no post nasal drip, oropharynx clear. Cardiovascular: Regular rate and rhythm, no murmurs, rubs or gallops, no peripheral edema. Respiratory: Clear to auscultation bilaterally, no tachypnea, no wheezing, no rhonchi, no rubs, no respiratory distress. Abdomen: Soft, very distended, diffuse tenderness to palpation, no rebound, no guarding, no peritoneal signs. Musculoskeletal: No joint swelling or deformity, normal muscle tone. Skin: No rashes or petechia, no signs of infection. Neurological: Alert and oriented to person, place, and time. Follows all commands. No focal deficits, speech is clear and fluent. Const: General: no acute distress, uncomfortable (Due to abdominal pain) and average body habitus Nutritional Appearance: average body habitus Orientation/consciousness: patient oriented x3 HENMT: Head: normocephalic and atraumatic Ears: hearing grossly normal bilaterally Mouth: Yes moist mucous membranes Eyes: General: appearance normal, both eyes and all related structures Pupils: Equal, round and reactive pupils present Neck: Neck: normal visual inspection and full ROM Resp: Effort & Inspection: no respiratory distress Auscultation: clear to auscultation bilaterally Cardio: Rate: regular rate Rhythm: regular rhythm Heart sounds: S1 normal heart sound present and S2 normal heart sound present Peripheral pulses: Peripheral pulses 2+ throughout GI: Inspection: distended, scar (3 vertical scars from the midline to the right mid abdomen) and no visible herniation Auscultation: Hypoactive bowel sounds present Skin: General skin exam: normal color Neuro: General: patient oriented x3, moves all extremities and no focal motor deficits Cranial nerves: Yes Equal, round and reactive pupils present Speech: normal speech Motor exam (neuro): 5/5 motor strength present throughout Extrem: General: normal to inspection and no edema Psych: Mental Status: mental status grossly normal Attitude: cooperative Insight: Good insight present (Psych) Judgement: Good judgement present (Psych) Objective Data Vital Signs Vital Signs: Vital Signs - 24 hr 04/02/24 14:00 04/02/24 20:00 04/02/24 22:00 Temperature 97.7 F 97.7 F Pulse Rate 97 70 Respiratory Rate 16 18 Blood Pressure 128/70 127/53 L Pulse Oximetry 96 93 Oxygen Delivery Room Air 04/03/24 06:00 04/03/24 07:52 Temperature 97.9 F Pulse Rate 88 Respiratory Rate 18 Blood Pressure 126/56 L Pulse Oximetry 96 95 Oxygen Delivery Room Air Intake/Output Intake/Output: Intake & Output 03/31/24 04/01/24 04/02/24 04/03/24 23:59 23:59 23:59 23:59 Intake Total 1150 Output Total 700 704 Balance 450 -704 Meds/Results Medications: Active Medications Generic Name Dose Route Start Last Admin Trade Name Freq PRN Reason Stop Dose Admin Levofloxacin/Dextrose 750 mg in 150 mls @ 100 mls/hr 04/04/24 06:00 Levaquin 750 Mg/D5w 150 Ml IVPB Q48H SHAKILA Dextrose/Sodium Chloride 1,000 mls @ 55 mls/hr 04/02/24 19:35 04/02/24 19:44 Dextrose 5% Sodium Chloride 0.45% IV CONT 55 mls/hr .[id number] SHAKILA Administration Morphine Sulfate 2 mg 04/02/24 09:22 Morphine Sulfate (*Crx) 2 Mg/Ml Inj IV PUSH Q2H PRN Pain Rated 4-6 Morphine Sulfate 4 mg 04/02/24 09:22 04/03/24 08:30 Morphine Sulfate (*Crx) 4 Mg/Ml Inj IV PUSH 4 mg Q2H PRN Administration Pain Rated 7-10 Ondansetron HCl 8 mg 04/03/24 10:15 04/03/24 10:23 Ondansetron Inj 4 Mg/2 Ml Vial IV PUSH 8 mg Q6H PRN Administration Nausea And Vomiting Radiology Results: ITS Impressions Abdomen/Pelvis CT 04/02/24 05:56 IMPRESSION: 1. Small bowel obstruction with transition point in right abdomen. Abdomen X-Ray 04/03/24 08:26 IMPRESSION: 1. Small bowel obstruction. Labs Labs: Laboratory Results - last 24 hr 04/02/24 04/02/24 04/03/24 11:55 16:56 05:32 WBC 11.2 H RBC 4.07 L Hgb 12.1 D Hct 37.9 MCV 93.1 MCH 29.7 MCHC 31.9 L RDW 14.2 Plt Count 139 L MPV 10.9 H Sodium 134 L Potassium 3.4 Chloride 103 Carbon Dioxide 24 Anion Gap 7 BUN 19 H D Creatinine 0.70 Estim Creat Clear Calc 55 Estimated GFR > 60 Glucose 176 H POC Capillary Glucose 176 H 142 H Calcium 8.1 L Total Bilirubin 1.2 AST 29 ALT 21 Alkaline Phosphatase 103 Total Protein 6.0 L Albumin 3.4 L 04/03/24 07:32 WBC RBC Hgb Hct MCV MCH MCHC RDW Plt Count MPV Sodium Potassium Chloride Carbon Dioxide Anion Gap BUN Creatinine Estim Creat Clear Calc Estimated GFR Glucose POC Capillary Glucose 169 H Calcium Total Bilirubin AST ALT Alkaline Phosphatase Total Protein Albumin Hospitalist MIPS Advance Care Plan I have confirmed that the patient's Advanced Care Plan is present, code status is documented, or surrogate decision maker is listed in patient medical record.: Yes Medication Reconciliation I have utilized all available resources to obtain, update and review the patients current medications (includes all prescriptions, OTC, herbals, cannabis, and nutritional supplements).: Yes
--- NOTE | 2024-04-03 12:26 | P.PNGS_ITS ---
Progress Note: A&P Assessment and Plan (1) Small bowel obstruction: Code(s): K56.609 - Unspecified intestinal obstruction, unspecified as to partial versus complete obstruction Status: Acute Assessment and Plan: * Patient still showing signs of bowel obstruction. Will give Dulcolax suppository today. Gastrografin small-bowel follow-through ordered for tomorrow morning. Discussed given this about 24 more hours to see if obstruction resolves, might need to consider exploratory laparotomy within the next 1-2 days if not resolving. (2) Diabetes mellitus: Code(s): E11.9 - Type 2 diabetes mellitus without complications Status: Acute (3) Essential hypertension: Code(s): I10 - Essential (primary) hypertension Status: Acute Subjective Subjective Date/Time Seen: 04/03/24 12:26 Interval history: Still having some upper abdominal pain. Also experiencing some dry heaves this morning. No flatus or BM. Exam GI: Inspection: distended GI Palp: Yes Soft to palpation, Yes Tenderness to palpation present (GI) (Upper periumbilical region), No Guarding due to palpation present (GI) and No Rebound tenderness present Auscultation: Hy poactive bowel sounds present Objective Data Vital Signs Vital Signs: Vital Signs - 24 hr 04/02/24 14:00 04/02/24 20:00 04/02/24 22:00 Temperature 97.7 F 97.7 F Pulse Rate 97 70 Respiratory Rate 16 18 Blood Pressure 128/70 127/53 L Pulse Oximetry 96 93 Oxygen Delivery Room Air 04/03/24 06:00 04/03/24 07:52 Temperature 97.9 F Pulse Rate 88 Respiratory Rate 18 Blood Pressure 126/56 L Pulse Oximetry 96 95 Oxygen Delivery Room Air Intake/Output Intake/Output: Intake & Output 03/31/24 04/01/24 04/02/24 04/03/24 23:59 23:59 23:59 23:59 Intake Total 1150 Output Total 700 704 Balance 450 -704 Meds/Results Medications: Active Medications Generic Name Dose Route Start Last Admin Trade Name Freq PRN Reason Stop Dose Admin Bisacodyl 10 mg 04/03/24 12:25 Bisacodyl 10 Mg Suppository RECTAL 04/03/24 12:26 ONCE ONE Levofloxacin/Dextrose 750 mg in 150 mls @ 100 mls/hr 04/04/24 06:00 Levaquin 750 Mg/D5w 150 Ml IVPB Q48H SHAKLIA Dextrose/Sodium Chloride 1,000 mls @ 55 mls/hr 04/02/24 19:35 04/02/24 19:44 Dextrose 5% Sodium Chloride 0.45% IV CONT 55 mls/hr .[id number] SHAKILA Administration Morphine Sulfate 2 mg 04/02/24 09:22 Morphine Sulfate (*Crx) 2 Mg/Ml Inj IV PUSH Q2H PRN Pain Rated 4-6 Morphine Sulfate 4 mg 04/02/24 09:22 04/03/24 11:44 Morphine Sulfate (*Crx) 4 Mg/Ml Inj IV PUSH 4 mg Q2H PRN Administration Pain Rated 7-10 Ondansetron HCl 8 mg 04/03/24 10:15 04/03/24 10:23 Ondansetron Inj 4 Mg/2 Ml Vial IV PUSH 8 mg Q6H PRN Administration Nausea And Vomiting Radiology Results: ITS Impressions Abdomen/Pelvis CT 04/02/24 05:56 IMPRESSION: 1. Small bowel obstruction with transition point in right abdomen. Abdomen X-Ray 04/03/24 08:26 IMPRESSION: 1. Small bowel obstruction. Labs Labs: Laboratory Results - last 24 hr 04/02/24 04/03/24 04/03/24 16:56 05:32 07:32 WBC 11.2 H RBC 4.07 L Hgb 12.1 D Hct 37.9 MCV 93.1 MCH 29.7 MCHC 31.9 L RDW 14.2 Plt Count 139 L MPV 10.9 H Sodium 134 L Potassium 3.4 Chloride 103 Carbon Dioxide 24 Anion Gap 7 BUN 19 H D Creatinine 0.70 Estim Creat Clear Calc 55 Estimated GFR > 60 Glucose 176 H POC Capillary Glucose 142 H 169 H Calcium 8.1 L Total Bilirubin 1.2 AST 29 ALT 21 Alkaline Phosphatase 103 Total Protein 6.0 L Albumin 3.4 L
[2024-04-03] MEDS: BISACODYL 10 MG SUPPOSITORY RECTAL (13:07)
[2024-04-03 13:42] VITALS: BP 172/78; PULSE 84; RESP 16; TEMP 36.6; O2SAT 98
[2024-04-03] MEDS: DEXTROSE 5%/0.45% SOD CHL 1,000 ML 55 ML IV CONT (13:43)
[2024-04-03 14:00] VITALS: BP 172/78; PULSE 84; RESP 16; TEMP 36.6; O2SAT 98
--- NOTE | 2024-04-03 16:59 | PC.NURSE ---
I attempted to place NG tube on patient in both nares and she adamantly refused.
[2024-04-03 19:26] VITALS: BP 156/63; PULSE 80; RESP 16; TEMP 36.5; O2SAT 97
[2024-04-03] MEDS: MORPHINE SULFATE (*CRX) 2 MG/ML INJ IV PUSH (21:39)
[2024-04-03] MEDS: PHENOL/SOD PHENO SPRAY CHERRY (*BKC) 1 SPRAY MUCOUS MEM (23:37)
[2024-04-04] VITALS (15 sets, daily range): BP systolic 142–175; BP diastolic 61–91; PULSE 82–113; RESP 12–24; TEMP 36.4–37.6; O2SAT 97–100
[2024-04-04] MEDS: MORPHINE SULFATE (*CRX) 4 MG/ML INJ IV PUSH ×3 (04:19→12:52)
[2024-04-04] MEDS: levoFLOXacin 750 MG/D5W 150 ML 750 MG/150 ML BAG 100 MG IVPB (05:52)
[2024-04-04 06:35] LABS: Hematocrit 40.7 % (37.0-47.0); Hemoglobin 13.7 g/dL (12.0-15.0); Immature Platelet Fraction Pct 4.1 % (0.9-11.2); Mean Corpuscular HGB Conc 33.7 g/dl (32-36); Mean Corpuscular Hemoglobin 30.2 pg (26-34); Mean Corpuscular Volume 89.8 fl (80-100); Mean Platelet Volume 11.3 fl (7.4-10.4); Platelet Count Result 141 k/mm3 (150-375); Red Blood Count 4.53 M/mm3 (4.2-5.4); Red Cell Distribution Width 13.8 % (11.5-14.5); White Blood Count 9.6 K/mm3 (4.5-10.0)
[2024-04-04 06:53] LABS: Alanine Aminotransferase 21 U/L (6-35); Albumin Level 4.1 g/dL (3.5-5.1); Alkaline Phosphatase 94 U/L (38-126); Anion Gap 11 mmol/L (4-12); Aspartate Amino Transferase 34 U/L (14-36); Bilirubin,Total 1.4 mg/dL (0.2-1.3); Blood Urea Nitrogen 12 mg/dL (7-17); Calcium 8.4 mg/dL (8.4-10.2); Carbon Dioxide 20 mmol/L (22-30); Chloride 100 mmol/L (98-107); Estimated CRCL calculation 63 ml/min; Estimated Glomerular Filt Rate > 60; Glucose 192 mg/dL (65-110); Potassium 3.1 mmol/L (3.4-5.0); Sodium 131 mmol/L (137-145)
[2024-04-04] MEDS: ONDANSETRON INJ 4 MG/2 ML VIAL 8 MG IV PUSH ×2 (07:50→22:34)
[2024-04-04] MEDS: KCL 40 MEQ/0.9% SOD CHL 1,000 ML 100 ML IV CONT (08:38)
--- NOTE | 2024-04-04 11:19 | PCOTNOTE ---
OT evaluation attempted @11:15 am. Patient refused all activities due to being nauseas and not wanting to start vomiting again.
--- NOTE | 2024-04-04 12:53 | P.PNGS_ITS ---
Progress Note: A&P Assessment and Plan (1) Complete obstruction of small intestine: Code(s): K56.601 - Complete intestinal obstruction, unspecified as to cause Status: Acute Assessment and Plan: * I reviewed the small-bowel follow-through. Patient still has evidence of a small-bowel obstruction. This does not seem to be resolving with bowel rest and NG decompression. I have recommended proceeding with exploratory laparotomy, possible small-bowel resection. I discussed the procedure, risks, benefits, and alternatives. This procedure can be more difficult secondary to her other prior surgeries. This could also cause prolonged ileus postoperatively and longer hospital stay due to significant adhesions. (2) Diabetes mellitus: Code(s): E11.9 - Type 2 diabetes mellitus without complications Status: Acute Subjective Subjective Date/Time Seen: 04/04/24 12:53 Interval history: Patient had a bowel movement yesterday but also pulled out her NG tube. She was experiencing recurrent nausea and NG tube was replaced overnight. She underwent small-bowel follow-through this morning but began experiencing worsening pain and nausea shortly after NG tube was clamped. Small-bowel follow-through showed no significant progression after 2 hours consistent with a complete small-bowel obstruction. Exam GI: Inspection: distended GI Palp: Yes Soft to palpation and Yes Tenderness to palpation present (GI) (Upper periumbilical) Auscultation: Hypoactive bowel sounds present Objective Data Vital Signs Vital Signs: Vital Signs - 24 hr 04/03/24 13:42 04/03/24 14:00 04/03/24 19:26 Temperature 97.8 F 97.8 F 97.7 F Pulse Rate 84 84 80 Respiratory Rate 16 16 16 Blood Pressure 172/78 H 172/78 H 156/63 H Pulse Oximetry 98 98 97 Oxygen Delivery 04/04/24 04:18 04/04/24 05:25 04/04/24 09:39 Temperature 98.1 F Pulse Rate 82 Respiratory Rate 18 Blood Pressure 164/81 H 152/67 H Pulse Oximetry 100 Oxygen Delivery Room Air Intake/Output Intake/Output: Intake & Output 04/01/24 04/02/24 04/03/24 04/04/24 23:59 23:59 23:59 23:59 Intake Total 1150 989.1 1150 Output Total 700 1004 1400 Balance 450 -14.9 -250 Meds/Results Medications: Active Medications Generic Name Dose Route Start Last Admin Trade Name Freq PRN Reason Stop Dose Admin Levofloxacin/Dextrose 750 mg in 150 mls @ 100 mls/hr 04/04/24 06:00 04/04/24 07:22 Levaquin 750 Mg/D5w 150 Ml IVPB Infused Q48H SHAKLIA Infusion Dextrose/Sodium Chloride 1,000 mls @ 55 mls/hr 04/02/24 19:35 04/04/24 08:52 Dextrose 5% Sodium Chloride 0.45% IV CONT Not Given .[id number] SHAKILA Potassium Chloride/Sodium Chloride 1,000 mls @ 100 mls/hr 04/04/24 08:00 04/04/24 08:38 Kcl 40 Meq/Ns IV CONT 100 mls/hr .Q10H SHAKILA Administration Morphine Sulfate 2 mg 04/02/24 09:22 04/03/24 21:39 Morphine Sulfate (*Crx) 2 Mg/Ml Inj IV PUSH 2 mg Q2H PRN Administration Pain Rated 4-6 Morphine Sulfate 4 mg 04/02/24 09:22 04/04/24 06:10 Morphine Sulfate (*Crx) 4 Mg/Ml Inj IV PUSH 4 mg Q2H PRN Administration Pain Rated 7-10 Ondansetron HCl 8 mg 04/03/24 10:15 04/04/24 07:50 Ondansetron Inj 4 Mg/2 Ml Vial IV PUSH 8 mg Q6H PRN Administration Nausea And Vomiting Phenol 1 spray 04/03/24 22:07 04/03/24 23:37 Phenol/Sod Pheno [place] (*Bkc) MUCOUS MEM 1 spray PRN PRN Administration Sore Throat Radiology Results: ITS Impressions Abdomen/Pelvis CT 04/02/24 05:56 IMPRESSION: 1. Small bowel obstruction with transition point in right abdomen. Abdomen X-Ray 04/03/24 22:26 IMPRESSION: 1. Nasogastric tube in the stomach. 2. Persistent small bowel obstruction. Small Bowel X-Ray 04/04/24 10:19 IMPRESSION: 1. Dilated small bowel with contrast remaining in the proximal small bowel at 2 hours, consistent with small bowel obstruction. Labs Labs: Laboratory Results - last 24 hr 04/04/24 06:02 WBC 9.6 RBC 4.53 Hgb 13.7 Hct 40.7 MCV 89.8 MCH 30.2 MCHC 33.7 RDW 13.8 Plt Count 141 L MPV 11.3 H % Immature Plt Fraction 4.1 Sodium 131 L Potassium 3.1 L Chloride 100 Carbon Dioxide 20 L Anion Gap 11 BUN 12 D Creatinine 0.60 L Estim Creat Clear Calc 63 Estimated GFR > 60 Glucose 192 H Calcium 8.4 Total Bilirubin 1.4 H AST 34 ALT 21 Alkaline Phosphatase 94 Total Protein 7.0 Albumin 4.1
--- NOTE | 2024-04-04 12:57 | WPDHPUPDATE1 ---
History and Physical Update Update Date/Time: 04/04/24 12:57 History and Physical has been reviewed, including an updated exam of the patient. There are NO changes in the patient's condition. Risks, benefits, and alternatives have been discussed and questions answered. Patient agrees to proceed with procedure.
--- NOTE | 2024-04-04 13:21 | P.PNIM_ITS ---
Progress Note: A&P Assessment and Plan (1) Abdominal pain: Code(s): R10.9 - Unspecified abdominal pain Status: Acute (2) Nausea & vomiting: Code(s): R11.2 - Nausea with vomiting, unspecified Status: Acute (3) Diabetes mellitus: Code(s): E11.9 - Type 2 diabetes mellitus without complications Status: Acute (4) Small bowel obstruction: Code(s): K56.609 - Unspecified intestinal obstruction, unspecified as to partial versus complete obstruction Status: Acute Assessment and Plan: * Patient still showing signs of bowel obstruction. Will give Dulcolax suppo sitory today. Gastrografin small-bowel follow-through ordered for tomorrow morning. Discussed given this about 24 more hours to see if obstruction resolves, might need to consider exploratory laparotomy within the next 1-2 days if not resolving. (5) Essential hypertension: Code(s): I10 - Essential (primary) hypertension Status: Acute Plan SBO -04/04 : Small Bowel Xray: Dilated small bowel with contrast remaining in the proximal small bowel at 2 hours, consistent with small bowel obstruction. -Possible exploratory laparotomy, possible small-bowel resection -Not resolving with Bowel Rest and NG decompression -CT scan: Small bowel obstruction with transition point in right abdomen. -NPO -NG tube in place -s/p Dulcolax -S/P Gastrografin small-bowel follow-through -Cont fluids -Surgery following -Off Note patient has distant history of 3 small bowel obstruction. -First 2 were treated medically. She underwent exploratory laparotomy with a 3rd small bowel obstruction. The obstruction was secondary to adhesions (no colon resection). -PSHx :abdominal surgeries include open cholecystectomy, appendectomy, ectopic and exploratory laparotomy. Subjective Date/time seen: 04/04/24 13:21 Interval history: Patient is a 73-year-old female PMHX DM, breast cancer in 2018, TU, JOANNE, UTI,GERD ,Bullous Pemphigoid who presents to the emergency department this morning complaining of diffuse abdominal pain, abdominal distension, nausea and vomiting. Patient admits to history of a small-bowel obstruction in 2009 status post an ex lap. Denies any urinary symptoms including dysuria or hematuria, denies any recent diarrhea. Patient states that she had a small bowel movement before coming into the emergency. Imaging studies obtained included CT abdomen pelvis with IV contrast revealing a small-bowel obstruction with a transition point in the right abdomen, which is pending final radiology interpretation. Currently pt is NPO, NG tube and started on maintenance fluids with LR rate of 100 cc/hour. Surgery is on board. Patient has positive urinalysis and will be started on Levofloxacin. Off Note patient has distant history of 3 small bowel obstruction. First 2 were treated medically. She underwent exploratory laparotomy with a 3rd small bowel obstruction. The obstruction was secondary to adhesions (no colon resection). In regards to abdominal surgeries include open cholecystectomy, appendectomy, ectopic and exploratory laparotomy. 04/04: Patient had a bowel movement yesterday after receiving suppository Dulcolax. Still continues nausea and abdominal pain. Evidence of small-bowel obstruction after reviewing the small-bowel follow-through x-rays. Surgery recommend exploratory laparotomy, possible small bowel resection. Patient might need increased length of stay due to previous abdominal surgeries due to si gnificant adhesions. Small Bowel Xray : Dilated small bowel with contrast remaining in the proximal small bowel at 2 hours, consistent with small bowel obstruction. Review of Systems Review of Systems: All systems are reviewed and are negative unless stated otherwise in the HPI. All systems reviewed & are unremarkable except as noted in HPI and below Exam Narrative: General: Alert, awake, afebrile, in no acute distress, dry heaving. HEENT: PERRL, no rhinorrhea, no post nasal drip, oropharynx clear. Cardiovascular: Regular rate and rhythm, no murmurs, rubs or gallops, no peripheral edema. Respiratory: Clear to auscultation bilaterally, no tachypnea, no wheezing, no rhonchi, no rubs, no respiratory distress. Abdomen: Soft, very distended, diffuse tenderness to palpation, no rebound, no guarding, no peritoneal signs. Musculoskeletal: No joint swelling or deformity, normal muscle tone. Skin: No rashes or petechia, no signs of infection. Neurological: Alert and oriented to person, place, and time. Follows all commands. No focal deficits, speech is clear and fluent. Const: General: no acute distress, uncomfortable (Due to abdominal pain) and average body habitus Nutritional Appearance: average body habitus Orientation/consciousness: patient oriented x3 HENMT: Head: normocephalic and atraumatic Ears: hearing grossly normal bilaterally Mouth: Yes moist mucous membranes Eyes: General: appearance normal, both eyes and all related structures Pupils: Equal, round and reactive pupils present Neck: Neck: normal visual inspection and full ROM Resp: Effort & Inspection: no respiratory distress Auscultation: clear to auscultation bilaterally Cardio: Rate: regular rate Rhythm: regular rhythm Heart sounds: S1 normal heart sound present and S2 normal heart sound present Peripheral pulses: Peripheral pulses 2+ throughout GI: Inspection: distended, scar (3 vertical scars from the midline to the right mid abdomen) and no visible herniation Auscultation: Hypoactive bowel sounds present Skin: General skin exam: normal color Neuro: General: patient oriented x3, moves all extremities and no focal motor deficits Cranial nerves: Yes Equal, round and reactive pupils present Speech: normal speech Motor exam (neuro): 5/5 motor strength present throughout Extrem: General: normal to inspection and no edema Psych: Mental Status: mental status grossly normal Attitude: cooperative Insight: Good insight present (Psych) Judgement: Good judgement present (Psych) Objective Data Vital Signs Vital Signs: Vital Signs - 24 hr 04/03/24 13:42 04/03/24 14:00 04/03/24 19:26 Temperature 97.8 F 97.8 F 97.7 F Pulse Rate 84 84 80 Respiratory Rate 16 16 16 Blood Pressure 172/78 H 172/78 H 156/63 H Pulse Oximetry 98 98 97 Oxygen Delivery 04/04/24 04:18 04/04/24 05:25 04/04/24 09:39 Temperature 98.1 F Pulse Rate 82 Respiratory Rate 18 Blood Pressure 164/81 H 152/67 H Pulse Oximetry 100 Oxygen Delivery Room Air Intake/Output Intake/Output: Intake & Output 04/01/24 04/02/24 04/03/24 04/04/24 23:59 23:59 23:59 23:59 Intake Total 1150 989.1 1150 Output Total 700 1004 1400 Balance 450 -14.9 -250 Meds/Results Medications: Active Medications Generic Name Dose Route Start Last Admin Trade Name Freq PRN Reason Stop Dose Admin Levofloxacin/Dextrose 750 mg in 150 mls @ 100 mls/hr 04/04/24 06:00 04/04/24 07:22 Levaquin 750 Mg/D5w 150 Ml IVPB Infused Q48H SHAKILA Infusion Dextrose/Sodium Chloride 1,000 mls @ 55 mls/hr 04/02/24 19:35 04/04/24 08:52 Dextrose 5% Sodium Chloride 0.45% IV CONT Not Given .[id number] SHAKILA Potassium Chloride/Sodium Chloride 1,000 mls @ 100 mls/hr 04/04/24 08:00 04/04/24 08:38 Kcl 40 Meq/Ns IV CONT 100 mls/hr .Q10H SHAKILA Administration Morphine Sulfate 2 mg 04/02/24 09:22 04/03/24 21:39 Morphine Sulfate (*Crx) 2 Mg/Ml Inj IV PUSH 2 mg Q2H PRN Administration Pain Rated 4-6 Morphine Sulfate 4 mg 04/02/24 09:22 04/04/24 12:52 Morphine Sulfate (*Crx) 4 Mg/Ml Inj IV PUSH 4 mg Q2H PRN Administration Pain Rated 7-10 Ondansetron HCl 8 mg 04/03/24 10:15 04/04/24 07:50 Ondansetron Inj 4 Mg/2 Ml Vial IV PUSH 8 mg Q6H PRN Administration Nausea And Vomiting Phenol 1 spray 04/03/24 22:07 04/03/24 23:37 Phenol/Sod Pheno [employer]uss (*Bkc) MUCOUS MEM 1 spray PRN PRN Administration Sore Throat Radiology Results: ITS Impressions Abdomen/Pelvis CT 04/02/24 05:56 IMPRESSION: 1. Small bowel obstruction with transition point in right abdomen. Abdomen X-Ray 04/03/24 22:26 IMPRESSION: 1. Nasogastric tube in the stomach. 2. Persistent small bowel obstruction. Small Bowel X-Ray 04/04/24 10:19 IMPRESSION: 1. Dilated small bowel with contrast remaining in the proximal small bowel at 2 hours, consistent with small bowel obstruction. Labs Labs: Laboratory Results - last 24 hr 04/04/24 04/04/24 06:02 12:15 WBC 9.6 RBC 4.53 Hgb 13.7 Hct 40.7 MCV 89.8 MCH 30.2 MCHC 33.7 RDW 13.8 Plt Count 141 L MPV 11.3 H % Immature Plt Fraction 4.1 Sodium 131 L Potassium 3.1 L Chloride 100 Carbon Dioxide 20 L Anion Gap 11 BUN 12 D Creatinine 0.60 L Estim Creat Clear Calc 63 Estimated GFR > 60 Glucose 192 H Calcium 8.4 Total Bilirubin 1.4 H AST 34 ALT 21 Alkaline Phosphatase 94 Total Protein 7.0 Albumin 4.1 Blood Type O Positive Hospitalist MIPS Advance Care Plan I have confirmed that the patient's Advanced Care Plan is present, code status is documented, or surrogate decision maker is listed in patient medical record.: Yes Medication Reconciliation I have utilized all available resources to obtain, update and review the patients current medications (includes all prescriptions, OTC, herbals, cannabis, and nutritional supplements).: Yes
[2024-04-04 14:25] LABS: Glucose Point of Care 156 mg/dl (65-105)
--- NOTE | 2024-04-04 15:33 | P.PNAN_ITS ---
Anes - Initial Pre Proc Eval Procedure: Operation Date: 04/04/24 16:00 Proposed Procedures p Exploratory Laparotomy, Possible Bowel Resection - Chetan Friend DO Date/Time: 04/04/24 15:33 Surgeon: Fatoumata Rowell MD Pre Op Diagnosis: Abdominal pain Patient Data Age: 73 Gender: F Height: 1.63 m Weight: 61.36 kg Last Vital Signs Temp 99.2 F 04/04/24 14:30 Pulse 82 04/04/24 14:30 Resp 17 04/04/24 14:00 BP 170/91 H 04/04/24 14:30 Pulse Ox 97 04/04/24 14:30 O2 Del Method Room Air 04/04/24 14:30 Allergies Allergy/AdvReac Type Severity Reaction Status Date / Time gemfibrozil Allergy Intermediate Rash Verified 04/02/24 07:51 hydrochlorothiazide Allergy Intermediate Rash Verified 04/02/24 07:51 irbesartan Allergy Intermediate Hives Verified 04/02/24 07:51 niacinamide Allergy Intermediate Rash Verified 04/02/24 07:51 amoxicillin [From Augmentin] AdvReac Intermediate Diarrhea Verified 04/02/24 07:51 clavulanic acid AdvReac Intermediate Diarrhea Verified 04/02/24 07:51 [From Augmentin] hydrocodone AdvReac Intermediate Dizziness Verified 04/02/24 07:51 lisinopril AdvReac Intermediate Dizziness Verified 04/02/24 07:51 Home Medications Medication Instructions Recorded Confirmed Type amlodipine 10 mg tablet 10 mg PO DAILY 02/05/21 04/02/24 History fenofibrate 160 mg tablet 160 mg PO DAILY 02/05/21 04/02/24 History rosuvastatin 40 mg tablet 40 mg PO DAILY 02/05/21 04/02/24 History erythromycin 2 % topical solution 1 ml topical TID Itching 05/01/22 04/02/24 History ondansetron HCl 4 mg tablet 4 mg PO Q4H PRN Nausea 05/01/22 04/02/24 History pregabalin 150 mg capsule (Lyrica) 600 mg PO Q12H 05/01/22 04/02/24 History levothyroxine 100 mcg tablet 100 mcg PO DAILY 05/17/22 04/02/24 History oxycodone-acetaminophen 5 mg-325 1 tablet PO Q6H PRN Pain, Moderate 05/17/22 04/02/24 History mg tablet memantine 5 mg tablet 5 mg PO BID 09/06/23 04/02/24 History naproxen 375 mg tablet 375 mg PO Q72H PRN Pain, Mild 09/06/23 04/02/24 History triamcinolone acetonide 0.1 % 1 applic topical BID PRN if open 09/06/23 04/02/24 History topical ointment areas diphenhydramine HCl 25 mg capsule 25 mg PO Q6H PRN Itching 04/02/24 04/02/24 History (Allergy (diphenhydramine)) docusate sodium 100 mg capsule 100 mg PO BID 04/02/24 04/02/24 History (Colace) ergocalciferol (vitamin D2) 50,000 50,000 unit PO WEEKLY 04/02/24 04/02/24 H istory unit tablet glipizide 10 mg tablet, extended 10 mg PO DAILY 04/02/24 04/02/24 History release 24 hr hydrocortisone 2.5 % topical cream 1 applic topical BID 04/02/24 04/02/24 Histo ry multivitamin 1 tablet PO DAILY 04/02/24 04/02/24 History polyvinyl alcohol-povidone 1.4 1 drp ophthalmic (eye) QID PRN Dry 04/02/24 04/02/24 History %-0.6 % eye drops Eyes silver sulfadiazine 1 % topical 1 applic topical BID PRN blisters 04/02/24 04/02/24 History cream Laboratory Tests 04/04/24 04/04/24 04/04/24 06:02 12:15 14:21 WBC 9.6 K/mm3 (4.5-10.0) RBC 4.53 M/mm3 (4.2-5.4) Hgb 13.7 g/dL (12.0-15.0) Hct 40.7 % (37.0-47.0) MCV 89.8 fl (80-100) MCH 30.2 pg (26-34) MCHC 33.7 g/dl (32-36) RDW 13.8 % (11.5-14.5) Plt Count 141 L k/mm3 (150-375) MPV 11.3 H fl (7.4-10.4) % Immature Plt Fraction 4.1 % (0.9-11.2) Sodium 131 L mmol/L (137-145) Potassium 3.1 L mmol/L (3.4-5.0) Chloride 100 mmol/L (98-107) Carbon Dioxide 20 L mmol/L (22-30) Anion Gap 11 mmol/L (4-12) BUN 12 D mg/dL (7-17) Creatinine 0.60 L mg/dL (0.7-1.0) Estim Creat Clear Calc 63 ml/min Estimated GFR > 60 (59 - ) Glucose 192 H mg/dL (65-110) POC Capillary Glucose 156 H mg/dl (65-105) Calcium 8.4 mg/dL (8.4-10.2) Total Bilirubin 1.4 H mg/dL (0.2-1.3) AST 34 U/L (14-36) ALT 21 U/L (6-35) Alkaline Phosphatase 94 U/L (38-126) Total Protein 7.0 g/dL (6.3-8.2) Albumin 4.1 g/dL (3.5-5.1) Blood Type O Positive Antibody Screen Negative Patient hx anesthesia problems: none Family hx anesthesia problems: none Results Review: All pre-operative results and documents have been reviewed as part of the pre- operative evaluation. [facility] [place] Past Medical History Medical History Atrial fibrillation Breast cancer Bullous pemphigoid Diabetes mellitus Essential hypertension Hyperlipidemia Hypothyroidism Hypothyroidism Iron deficiency anemia MGUS (monoclonal gammopathy of unknown significance) Shingles Small bowel obstruction Multiple small-bowel obstructions over the course of 20+ years. Surgical History Surgical History History of appendectomy History of exploratory laparotomy (~2009) Due to small-bowel obstruction History of lumpectomy of right breast History of tubal ligation Hx of cholecystectomy Family History Family History Mother , in her 90s Dementia Father , at age 72 Coronary artery disease Hx of CABG Social History Social History Social History: She lives in [place] with her of 44 years. They have 2 children. She is a former smoker but ?did not smoke that much?. She she does not drink alcohol. 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 Healthcare power of state attorney: Years smoked: 47 Smoking status: Former smoker Tobacco type: cigarettes Second hand tobacco smoke exposure: Yes Alcohol intake: never Alcohol use details: occasional glass of wine Substance use: current Substance use type: marijuana Last use: t-2 Do You Feel Safe in your Home?: Yes Lack of Transportation: No Lack of Food: Never True Current Housing: I Have Housing Concerned About Future Housing: No Difficulty Paying Gas/Electric Bills: No Difficulty Paying for Meds: No Currently Unemployed: No Education: High School Diploma/GED Difficulty w/ Childcare or Family Care: No Living arrangements: with family Gender identity (if verbalized by the patient): Female Spiritual care concerns: No Anes - Eval Final PreProcedure Day of Procedure 04/04/24 15:33 Patient weight: normal Heart: regular rate and rhythm Lungs: clear to auscultation Airway: Mallampati scale class II and special considerations (Poor dentition. ) Neurological: alert and oriented Last oral intake: >/= 8 hours ASA classification: III Emergent: yes Anesthesia type and monitoring: general ETT and standard monitoring Results Review: All pre-operative results and documents have been reviewed as part of the pre- operative evaluation. Pt w acute SBO, NG in place, now for exp lap. HTN, hyperlipidemia, DM, hypothyroidism. Long time ex smoker. Overall good funtional status prior to this admission w walking several flights of stairs, laundry, no cp or sob. Informed Consent: The patient's anesthetic plan and its attendant risks and benefits were discussed with the patient/family/POA. Questions were solicited and answers provided to the satisfaction of the patient/family/POA.
[2024-04-04] MEDS: LACTATED RINGERS 1,000 ML 30 ML IV CONT ×2 (15:40→20:37)
[2024-04-04] MEDS: ceFAZolin 2 GM/D5W 50 ML 2 GM/50 ML BAG IVPB (16:02)
[2024-04-04] MEDS: GENTAMICIN SULFATE INJ 300 MG in DEXTROSE 5% 100 ML 100 MG IVPB (17:37)
[2024-04-04 18:02] LABS: INR 1.2; Prothrombin Time 15.4 Seconds (11.1-14.7)
[2024-04-04 18:03] LABS: Partial Thromboplastin Time 30.1 Seconds (22.3-36.8)
[2024-04-04] MEDS: fentaNYL CITRATE INJ (*CRX) 100 MCG/2 ML VIAL 25 MCG IV PUSH ×7 (20:44→21:45)
--- NOTE | 2024-04-04 21:04 | W.PM.PROC2 ---
Procedure Note - Detailed Date of Procedure 04/04/24 Pre-op Diagnosis Small-bowel obstruction Post-op Diagnosis Same Procedure Performed 1. Exploratory laparotomy 2. Jejunal resection with tlvz-um-okrg anastomosis 3. Ileal resection with fzac-xj-waih anastomosis 4. Extensive adhesiolysis Surgeon Chetan Friend, DO Anesthesia General Indications This is a 73-year-old woman who presented to the emergency department with abdominal pain with nausea and vomiting. She had been experiencing this over the past couple days. She was admitted to the hospital for further treatment. Imaging showed evidence of a small-bowel obstruction. She has prior history of exploratory laparotomy for small bowel obstruction, open cholecystectomy, and open appendectomy. A Gastrografin small-bowel follow-through was obtained this morning and complete small bowel obstruction was persisting. Discussions were made with the patient about treatment options and decision was made to proceed with exploratory laparotomy with possible bowel resection. Findings Exploratory laparotomy was performed. Upon entering the abdominal cavity, extensive adhesions were identified involving the omentum and small bowel. The surgery was very complex requiring greater than 4 hours of total operating time, and about 3 hours of this operating time was spent performing adhesiolysis. There was also greater than 500 mL of blood loss which is about 10 times the expected amount for procedure like this that is straightforward. There was about 2 ft of distal ileum that appeared free of adhesions but the rest of the entire small bowel from ligament of Treitz to this area had extensive adhesions. Adhesions were carefully taken down, but even despite this, there were for small enterotomies that were made. The enterotomies were inherent to the nature of the patient's disease process with extensive adhesions. I carefully isolated these enterotomies to prevent spillage bowel contents. Bowel clamps were placed across the enterotomies where I could gain access to them and then 1 of the enterotomies was closed with a 3-0 silk [id number]-lc-[id number] suture. I then identified 2 areas that required resection. There was about a 12 in segment on the jejunum that still had dense adhesions and had an enterotomy, and then there was another 12 in segment on the ileum that had the other 3 enterotomies. After completing the adhesiolysis, I was able to run the entire small bowel from ligament of Treitz to the ileocecal valve. The jejunal resection was performed with a [id number]-zb-[id number] anastomosis and then the ileal resection was performed with a fgcv-tr-wdgm anastomosis. At the conclusion of the procedure I ran the entire small bowel. There were a couple other serosal tears that were repaired using 3-0 silk imbricating sutures. There was about 200 cm remaining small bowel. The colon had firm and hard stool within it but appeared healthy. NG tube was confirmed within the body of the stomach. No other abnormalities were noted. Description of Procedure Procedure as well as risks, benefits, and alternatives were discussed with the patient. Written consent was obtained and placed in chart prior to procedure. Patient was brought back to surgical suite. She was placed supine on operating table. Time-out was done to confirm patient procedure. She was then intubated by the anesthesia department. Her abdomen was prepped and draped in sterile fashion using chlorhexidine prep. A 20 cm vertical midline incision was made using a 10 blade scalpel. Electrocautery was used for hemostasis and for dissection through the subcutaneous tissue. Linea alba was then identified and incised with electrocautery. Omental adhesions were encountered to soon as I entered through the peritoneal cavity. These omental adhesions were carefully taken down using blunt dissection and electrocautery. I then identified more omental and small-bowel adhesions up to the abdominal wall. This was cleared off using Metzenbaum scissors and blunt dissection far enough circumferentially around the midline incision to place our Newton wound protector. The large Newton wound protector was then placed and then a the carefully inspected the abdominal cavity. Some dilated bowel was identified in the left upper quadrant and the right lower quadrant to have some decompressed bowel. There were extensive adhesions throughout the entire small bowel. I carefully took down these adhesions using Metzenbaum scissors and careful blunt dissection using finger fracture technique. After extensive adhesiolysis, I was then eventually able to free up a majority of the adhesions involving the small bowel and release the area of small-bowel obstruction. There did appear to be for enterotomies made during the adhesiolysis. Three of the enterotomies were along the distal small bowel where it was decompressed and there was no enteric spillage. One enterotomy was noted on the jejunum where the bowel was still dilated proximal to the obstruction. Spillage was kept to a minimum and a 3-0 silk qnrdes-pj-dzqig suture was placed at this location to prevent any further spillage. Then chose to perform a small-bowel resection at the jejunum where the enterotomy and some of the dense adhesions were located. I then also performed a small-bowel resection at the ileum where the other small enterotomies were noted. A window was created in the mesentery proximal and distal to the location for resection of the jejunum using a curved hemostat. MILLER 75 mm blue load staplers were then advanced across the proximal and distal transection point the jejunum and then the staplers were clamped and fired to transect the bowel at this point. The mesentery of the segment to be excised was then taken down using LigaSure bipolar cautery. The specimen was removed and sent to the lab for pathology. The 2 ends of the bowel were then inspected. The bowel appeared healthy and viable. Enterotomies were made on the anti mesenteric border and then a MILLER 75 mm blue load stapler was advanced through each enterotomy and the bowel was clamped together in a vgir-ej-zptc fashion. Stapler was fired to create the qaqj-jt-ldfc anastomosis. The anastomosis was inspected and appeared healthy and viable. The enterotomy was then closed using a Tx 60 mm stapler. The apex of the staple line as well as the anterior surface was reinforced using 3-0 silk seromuscular imbricating sutures. The mesenteric rent was then closed using 3-0 chromic running absorbable suture. This anastomosis was then released back down into the abdominal cavity. I then identified the area on the ileum for resection. Window was created in the mesentery proximal and distal to this and then a MILLER 75 mm blue load stapler was advanced across the ileum at the proximal and distal locations for transection. Staplers were then clamped down and fired to transect the bowel. The mesentery was then taken down using LigaSure bipolar cautery. The specimen was completely removed and sent to the lab for pathology. The 2 ends of the bowel came together in a tatc-tm-qjdt fashion. Enterotomies were made on the anti mesenteric border and a MILLER 75 mm blue load stapler was advanced through each enterotomy in the bowel was clamped together in a tmwh-fn-ehye fashion and the stapler was fired. The anastomosis was inspected and appeared healthy and viable. The enterotomy was then closed using a Tx 60 mm stapler. The mesenteric rent was then approximated using 3-0 chromic running absorbable suture. The apex and anterior surface of the anastomosis was reinforced using 3-0 silk seromuscular imbricating sutures. This anastomosis was then released back down into the abdominal cavity. I then ran the bowel 1 final time from the ligament of Treitz to the ileocecal valve. There were a couple small serosal tears that were repaired using 3-0 silk seromuscular imbricating sutures. No other abnormalities were noted. The abdomen was then irrigated with sterile saline. I then inspected the upper abdomen and identified the NG tube in the body of the stomach and confirmed it in proper position. I then inspected the ascending colon transverse colon descending colon and sigmoid colon and this all appeared healthy and viable. The Newton wound protector was then removed. One final inspection was made around the abdomen. I ensured that all lap sponges were removed. The fascia of the incision was then reapproximated using 0 PDS running suture starting from each end and meeting in the middle. The skin of the incision was approximated using a skin stapler. Telfa, 4 x 4 gauze, and Medipore tape were then applied. The patient was then awakened from anesthesia, extubated, and transferred to recovery. Estimated Blood Loss 500 Urine Output 4 Pathology Yes (Jejunum and ileum) Complications No immediate complications Condition Stable Disposition Floor [facility] Billing Surgery - Charge Forward: Surgery Billing
[2024-04-04] MEDS: ONDANSETRON INJ 4 MG/2 ML VIAL IV PUSH (21:13)
[2024-04-04] MEDS: LABETALOL HCL INJ 100 MG/20 ML VIAL IV PUSH (21:25)
[2024-04-04 21:49] LABS: Glucose Point of Care 270 mg/dl (65-105)
--- NOTE | 2024-04-04 22:10 | PC.NURSE ---
Pt returning to the floor from OR via bed. NG noted to left nare, oxygen maintained.
[2024-04-04] MEDS: HYDROmorphone HCL INJ (*CRX) 1 MG/ML SYR IV PUSH (22:33)
[2024-04-04] MEDS: metroNIDAZOLE 500 MG/ISO 100ML 500 MG/100 ML BAG 100 MG IVPB (22:34)
[2024-04-04] MEDS: DEXTROSE 5%/0.45% SOD CHL 1,000 ML 55 ML IV CONT (22:46)
[2024-04-05] VITALS (19 sets, daily range): BP systolic 132–165; BP diastolic 54–77; PULSE 105–122; RESP 14–20; TEMP 36.4–37.1; O2SAT 96–100
[2024-04-05] MEDS: HYDROmorphone HCL INJ (*CRX) 1 MG/ML SYR IV PUSH ×6 (00:58→16:33)
[2024-04-05] MEDS: metroNIDAZOLE 500 MG/ISO 100ML 500 MG/100 ML BAG 100 MG IVPB ×3 (05:14→22:11)
[2024-04-05 05:32] LABS: INR 1.1; Prothrombin Time 15.1 Seconds (11.1-14.7)
[2024-04-05 05:35] LABS: Hematocrit 41.6 % (37.0-47.0); Hemoglobin 13.3 g/dL (12.0-15.0); Mean Corpuscular Hemoglobin 30.3 pg (26-34); Mean Corpuscular Volume 94.8 fl (80-100); Mean Platelet Volume 11.3 fl (7.4-10.4); Platelet Count Result 122 k/mm3 (150-375); Red Blood Count 4.39 M/mm3 (4.2-5.4); Red Cell Distribution Width 14.5 % (11.5-14.5); White Blood Count 15.4 K/mm3 (4.5-10.0)
[2024-04-05 05:39] LABS: Alanine Aminotransferase 19 U/L (6-35); Albumin Level 2.9 g/dL (3.5-5.1); Alkaline Phosphatase 52 U/L (38-126); Anion Gap 13 mmol/L (4-12); Aspartate Amino Transferase 28 U/L (14-36); Bilirubin,Total 1.5 mg/dL (0.2-1.3); Blood Urea Nitrogen 23 mg/dL (7-17); Calcium 7.1 mg/dL (8.4-10.2); Carbon Dioxide 14 mmol/L (22-30); Chloride 106 mmol/L (98-107); Estimated CRCL calculation 31 ml/min; Estimated Glomerular Filt Rate 40; Glucose 332 mg/dL (65-110); Potassium 4.1 mmol/L (3.4-5.0); Sodium 133 mmol/L (137-145)
[2024-04-05] MEDS: HYDROmorphone HCL INJ (*CRX) 1 MG/ML SYR 0.5 MG IV PUSH (06:31)
--- NOTE | 2024-04-05 06:46 | PC.NURSE ---
NG had very minimal output of bile/green colored output since arrival from OR. Unable to document amount at this time.
[2024-04-05] MEDS: ENOXAPARIN 40 MG/0.4 ML SYRINGE SUB-Q (08:03)
--- NOTE | 2024-04-05 09:08 | WPDANESPN ---
Anes - Prog Note Post-Op Date/Time: 04/05/24 09:08 Cardiovascular status: normal Respiratory status: normal Airway patency: baseline Vital Signs: Last Vital Signs Temp 36.9 C 04/05/24 03:38 Pulse 115 H 04/05/24 06:40 Resp 18 04/05/24 03:38 BP 137/72 04/05/24 03:38 Pulse Ox 96 04/05/24 06:40 O2 Del Method Room Air 04/05/24 06:40 O2 Flow Rate 2 04/04/24 22:58 Pain Score (VAS): Patient unable to verbalize, nonverbal signs of pain present. I/O: Intake & Output 04/04/24 04/05/24 04/05/24 23:59 07:59 15:59 Intake Total 807.5 100 Output Total 64 150 Balance 743.5 -50 Laboratory Tests 04/05/24 05:13 04/05/24 05:13 04/04/24 04/04/24 04/04/24 12:15 14:21 17:33 WBC RBC Hgb Hct MCV MCH MCHC RDW Plt Count MPV PT 15.4 H INR 1.2 APTT 30.1 Sodium Potassium Chloride Carbon Dioxide Anion Gap BUN Creatinine Estim Creat Clear Calc Estimated GFR Glucose POC Capillary Glucose 156 H Calcium Total Bilirubin AST ALT Alkaline Phosphatase Total Protein Albumin Blood Type O Positive Antibody Screen Negative Crossmatch See Detail 04/04/24 04/05/24 21:46 05:13 WBC 15.4 H RBC 4.39 Hgb 13.3 Hct 41.6 MCV 94.8 D MCH 30.3 MCHC 32.0 RDW 14.5 Plt Count 122 L MPV 11.3 H PT 15.1 H INR 1.1 APTT Sodium 133 L Potassium 4.1 Chloride 106 Carbon Dioxide 14 L Anion Gap 13 H BUN 23 H D Creatinine 1.30 H Estim Creat Clear Calc 31 Estimated GFR 40 L Glucose 332 H POC Capillary Glucose 270 H Calcium 7.1 L Total Bilirubin 1.5 H AST 28 ALT 19 Alkaline Phosphatase 52 Total Protein 5.0 L Albumin 2.9 L Blood Type Antibody Screen Crossmatch Microbiology 04/02/24 04:41 Urine Clean Catch Urine Culture - Final Escherichia Coli Patient Feedback: Patient satisfied with anesthetic care.
--- NOTE | 2024-04-05 09:23 | PCOTNOTE ---
Attempted to see patient for OT evaluation this AM. Patient reporting too much pain at this time and declines working with therapy. Will continue to attempt.
[2024-04-05] MEDS: IBUPROFEN IV 800 MG/200 ML 800 MG/200 ML BAG 400 MG IVPB (10:31)
--- NOTE | 2024-04-05 13:09 | PM.PNGS ---
Progress Note: A&P Assessment and Plan (1) Complete obstruction of small intestine: Code(s): K56.601 - Complete intestinal obstruction, unspecified as to cause Status: Acute Assessment and Plan: Await return of bowel function PT/OT ordered PICC line ordered to start TPN Slight tachycardia and low urine output--will give bolus of NS and increase IV fluids until TPN started (2) Chronic, continuous use of opioids: Code(s): F11.90 - Opioid use, unspecified, uncomplicated Status: Acute Assessment and Plan: Patient with difficult pain control with PRN Dilaudid. Will start Morphine [employer] with basal rate. (3) Diabetes mellitus: Code(s): E11.9 - Type 2 diabetes mellitus without complications Status: Acute Plan Surgical findings discussed with patient and family. Enterotomies requiring small bowel resection and repair of serosal tears discussed. Expecting prolonged ileus. Also discussed that intraabdominal infections or delayed bowel perforation or anastomotic leak are concerns in the early postop period. Subjective Subjective Date/Time Seen: 04/05/24 13:09 Interval history: Mostly pain control issues today. Just moaning constantly. Has been getting Dilaudid but only helping for short time. says she was taking about 20mg oxycodone daily. No flatus or BM. Exam GI: Inspection: non-distended and incision (dressing dry) GI Palp: Yes Soft to palpation and Yes Tenderness to palpation present (GI) (diffusely) Auscultation: absent bowel sounds Objective Data Vital Signs Vital Signs: Vital Signs - 24 hr 04/04/24 14:00 04/04/24 14:30 04/04/24 20:37 Temperature 97.6 F 99.2 F 99.7 F H Pulse Rate 83 82 99 Respiratory Rate 17 24 H Blood Pressure 175/73 H 170/91 H 146/62 H Pulse Oximetry 99 97 100 Oxygen Delivery Room Air Simple Face Mask Oxygen Flow Rate 8 04/04/24 20:50 04/04/24 21:05 04/04/24 21:25 Temperature Pulse Rate 100 105 H 113 H Respiratory Rate 12 15 Blood Pressure 146/70 H 142/68 H Pulse Oximetry 100 100 Oxygen Delivery Simple Face Mask Simple Face Mask Oxygen Flow Rate 8 8 04/04/24 21:20 04/04/24 21:35 04/04/24 21:50 Temperature Pulse Rate 113 H 88 90 Respiratory Rate 14 16 15 Blood Pressure 159/79 H 143/61 H 144/62 H Pulse Oximetry 98 99 98 Oxygen Delivery Nasal Cannula Nasal Cannula Nasal Cannula Oxygen Flow Rate 2 2 2 04/04/24 21:53 04/04/24 22:38 04/04/24 22:44 Temperature 98.3 F 98.1 F 98.1 F Pulse Rate 98 97 97 Respiratory Rate 18 18 18 Blood Pressure 151/70 H 167/71 H 167/71 H Pulse Oximetry 98 97 97 Oxygen Delivery Oxygen Flow Rate 04/04/24 22:38 04/04/24 22:58 04/05/24 03:38 Temperature 98.5 F Pulse Rate 122 H Respiratory Rate 18 Blood Pressure 137/72 Pulse Oximetry 98 97 98 Oxygen Delivery Nasal Cannula Nasal Cannula Oxygen Flow Rate 2 2 04/05/24 06:40 04/05/24 06:40 04/05/24 11:58 Temperature 97.7 F Pulse Rate 115 H 115 H Respiratory Rate 20 Blood Pressure 137/58 L Pulse Oximetry 96 96 97 Oxygen Delivery Room Air Oxygen Flow Rate 04/05/24 12:40 Temperature 97.7 F Pulse Rate Respiratory Rate Blood Pressure Pulse Oximetry Oxygen Delivery Oxygen Flow Rate Intake/Output Intake/Output: Intake & Output 04/02/24 04/03/24 04/04/24 04/05/24 23:59 23:59 23:59 23:59 Intake Total 1150 989.1 1957.5 300 Output Total 700 1004 1464 150 Balance 450 -14.9 493.5 150 Meds/Results Medications: Active Medications Generic Name Dose Route Start Last Admin Trade Name Freq PRN Reason Stop Dose Admin Diphenhydramine HCl 25 mg 04/05/24 13:05 Diphenhydramine Hcl Inj 50 Mg/Ml Vial IV PUSH Q4H PRN Itching Enoxaparin Sodium 40 mg 04/05/24 09:00 04/05/24 08:03 Enoxaparin 40 Mg/0.4 Ml Syringe SUB-Q 40 mg DAILY SHAKILA Administration Fentanyl 25 mcg 04/05/24 13:10 Fentanyl (*Crx) 25 Mcg Patch TRANSDERM Q72HR SHAKILA Hydromorphone HCl 1 mg 04/04/24 21:53 04/05/24 12:10 Hydromorphone Hcl Inj (*Crx) 1 Mg/Ml Syr IV PUSH 1 mg Q2H PRN Administration Breakthrough Pain Rated 7-10 or NPO Hydromorphone HCl 0.5 mg 04/04/24 21:53 04/05/24 06:31 Hydromorphone Hcl Inj (*Crx) 1 Mg/Ml Syr IV PUSH 0.5 mg Q2H PRN Administration Breakthrough Pain Rated 4-6 or NPO Dextrose/Sodium Chloride 1,000 mls @ 100 mls/hr 04/02/24 19:35 04/04/24 22:46 Dextrose 5% Sodium Chloride 0.45% IV CONT 55 mls/hr .Q10H SHAKILA Administration Ibuprofen 800 mg in 200 mls @ 400 mls/hr 04/04/24 21:53 04/05/24 11:01 Caldolor 800 Mg/200 Ml IVPB Infused Q6H PRN Infusion Breakthrough Pain Rated 1-3 or NPO Metronidazole 500 mg in 100 mls @ 100 mls/hr 04/04/24 22:00 04/05/24 06:14 Flagyl 500 Mg/Iso Soln 100 Ml IVPB Infused Q8H SHAKILA Infusion Sodium Chloride 1,000 mls @ 999 mls/hr 04/05/24 13:05 Normal Saline Iv IV CONT 04/05/24 14:05 .Q1H1M ONE Naloxone HCl 0.1 mg 04/04/24 21:53 Naloxone Hcl 0.4 Mg/Ml Vial IV PUSH Q2M PRN Opiate Reversal Ondansetron HCl 8 mg 04/03/24 10:15 04/04/24 22:34 Ondansetron Inj 4 Mg/2 Ml Vial IV PUSH 8 mg Q6H PRN Administration Nausea And Vomiting Phenol 1 spray 04/03/24 22:07 04/03/24 23:37 Phenol/Sod Pheno [place] (*Bkc) MUCOUS MEM 1 spray PRN PRN Administration Sore Throat Radiology Results: ITS Impressions Abdomen/Pelvis CT 04/02/24 05:56 IMPRESSION: 1. Small bowel obstruction with transition point in right abdomen. Abdomen X-Ray 04/03/24 22:26 IMPRESSION: 1. Nasogastric tube in the stomach. 2. Persistent small bowel obstruction. Small Bowel X-Ray 04/04/24 10:19 IMPRESSION: 1. Dilated small bowel with contrast remaining in the proximal small bowel at 2 hours, consistent with small bowel obstruction. Labs Labs: Laboratory Results - last 24 hr 04/04/24 04/04/24 04/04/24 12:15 14:21 17:33 WBC RBC Hgb Hct MCV MCH MCHC RDW Plt Count MPV PT 15.4 H INR 1.2 APTT 30.1 Sodium Potassium Chloride Carbon Dioxide Anion Gap BUN Creatinine Estim Creat Clear Calc Estimated GFR Glucose POC Capillary Glucose 156 H Calcium Total Bilirubin AST ALT Alkaline Phosphatase Total Protein Albumin Blood Type O Positive Antibody Screen Negative Crossmatch See Detail 04/04/24 04/05/24 21:46 05:13 WBC 15.4 H RBC 4.39 Hgb 13.3 Hct 41.6 MCV 94.8 D MCH 30.3 MCHC 32.0 RDW 14.5 Plt Count 122 L MPV 11.3 H PT 15.1 H INR 1.1 APTT Sodium 133 L Potassium 4.1 Chloride 106 Carbon Dioxide 14 L Anion Gap 13 H BUN 23 H D Creatinine 1.30 H Estim Creat Clear Calc 31 Estimated GFR 40 L Glucose 332 H POC Capillary Glucose 270 H Calcium 7.1 L Total Bilirubin 1.5 H AST 28 ALT 19 Alkaline Phosphatase 52 Total Protein 5.0 L Albumin 2.9 L Blood Type Antibody Screen Crossmatch
--- NOTE | 2024-04-05 13:15 | PM.IMPN ---
Progress Note: A&P Assessment and Plan (1) Abdominal pain: Code(s): R10.9 - Unspecified abdominal pain Status: Acute Assessment and Plan: 04/05 POD1 pain uncontrolled, d/w Dr. 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 rate 1 mg/hr with prn bolus, prn Naloxone (2) Nausea & vomiting: Code(s): R11.2 - Nausea with vomiting, unspecified Status: Acute Assessment and Plan: 04/[address] (3) Diabetes mellitus: Code(s): E11.9 - Type 2 diabetes mellitus without complications Status: Acute Assessment and Plan: 04/05 FBS 332, current has D5 in IV but plan is for PICC line for TPN 04/05 Basal glargine 15 U and low dose q 6h corrective regimen Will likely need dose adjustment once TPN is started (4) Small bowel obstruction: Code(s): K56.609 - Unspecified intestinal obstruction, unspecified as to partial versus complete obstruction Status: Acute Assessment and Plan: 04/04 Exploratory lap with SB resection and ileostomy (5) Essential hypertension: Code(s): I10 - Essential (primary) hypertension Status: Acute Assessment and Plan: 04/05 137/58 Subjective Date/time seen: 04/05/24 13:15 Interval history: POD 1 Expl. Lap, bowel resection, ostomy placement. C/o severe abd pain. Denied pain elsewhere. Denied SOB. Chronically takes 30 MME daily for hx of trigeminal neuralgia. No stool. Review of Systems Review of Systems: All systems reviewed & are unremarkable except as noted in HPI and below Exam Narrative: HEENT: PERRL, sclerae nonicteric, pharyngeal mucosa pink and intact. NECK: No JVD. CHEST: Clear to auscultation. Normal effort. HEART: NL S1/S2, regular, no murmur ABDOMEN: BS absent, soft, SEVERE TENDERNESS YOCASTA-INCISIONAL EXTREMITIES: No cyanosis, edema, or clubbing NEUROLOGIC: CN intact and symmetric to inspection. MUSCULOSKELETAL: Tone and strength symmetric. PSYCH: Alert. Moaning, but follows commands. Objective Data Vital Signs Vital Signs: Vital Signs - 24 hr 04/04/24 14:00 04/04/24 14:30 04/04/24 20:37 Temperature 97.6 F 99.2 F 99.7 F H Pulse Rate 83 82 99 Respiratory Rate 17 24 H Blood Pressure 175/73 H 170/91 H 146/62 H Pulse Oximetry 99 97 100 Oxygen Delivery Room Air Simple Face Mask Oxygen Flow Rate 8 04/04/24 20:50 04/04/24 21:05 04/04/24 21:25 Temperature Pulse Rate 100 105 H 113 H Respiratory Rate 12 15 Blood Pressure 146/70 H 142/68 H Pulse Oximetry 100 100 Oxygen Delivery Simple Face Mask Simple Face Mask Oxygen Flow Rate 8 8 04/04/24 21:20 04/04/24 21:35 04/04/24 21:50 Temperature Pulse Rate 113 H 88 90 Respiratory Rate 14 16 15 Blood Pressure 159/79 H 143/61 H 144/62 H Pulse Oximetry 98 99 98 Oxygen Delivery Nasal Cannula Nasal Cannula Nasal Cannula Oxygen Flow Rate 2 2 2 04/04/24 21:53 04/04/24 22:38 04/04/24 22:44 Temperature 98.3 F 98.1 F 98.1 F Pulse Rate 98 97 97 Respiratory Rate 18 18 18 Blood Pressure 151/70 H 167/71 H 167/71 H Pulse Oximetry 98 97 97 Oxygen Delivery Oxygen Flow Rate 04/04/24 22:38 04/04/24 22:58 04/05/24 03:38 Temperature 98.5 F Pulse Rate 122 H Respiratory Rate 18 Blood Pressure 137/72 Pulse Oximetry 98 97 98 Oxygen Delivery Nasal Cannula Nasal Cannula Oxygen Flow Rate 2 2 04/05/24 06:40 04/05/24 06:40 04/05/24 11:58 Temperature 97.7 F Pulse Rate 115 H 115 H Respiratory Rate 20 Blood Pressure 137/58 L Pulse Oximetry 96 96 97 Oxygen Delivery Room Air Oxygen Flow Rate 04/05/24 12:40 Temperature 97.7 F Pulse Rate Respiratory Rate Blood Pressure Pulse Oximetry Oxygen Delivery Oxygen Flow Rate Intake/Output Intake/Output: Intake & Output 04/02/24 04/03/24 04/04/24 04/05/24 23:59 23:59 23:59 23:59 Intake Total 1150 989.1 1957.5 300 Output Total 700 1004 1464 150 Balance 450 -14.9 493.5 150 Meds/Results Medications: Active Medications Generic Name Dose Route Start Last Admin Trade Name Freq PRN Reason Stop Dose Admin Diphenhydramine HCl 25 mg 04/05/24 13:05 Diphenhydramine Hcl Inj 50 Mg/Ml Vial IV PUSH Q4H PRN Itching Enoxaparin Sodium 40 mg 04/05/24 09:00 04/05/24 08:03 Enoxaparin 40 Mg/0.4 Ml Syringe SUB-Q 40 mg DAILY SHAKILA Administration Hydromorphone HCl 1 mg 04/04/24 21:53 04/05/24 12:10 Hydromorphone Hcl Inj (*Crx) 1 Mg/Ml Syr IV PUSH 1 mg Q2H PRN Administration Breakthrough Pain Rated 7-10 or NPO Hydromorphone HCl 0.5 mg 04/04/24 21:53 04/05/24 06:31 Hydromorphone Hcl Inj (*Crx) 1 Mg/Ml Syr IV PUSH 0.5 mg Q2H PRN Administration Breakthrough Pain Rated 4-6 or NPO Dextrose/Sodium Chloride 1,000 mls @ 100 mls/hr 04/02/24 19:35 04/04/24 22:46 Dextrose 5% Sodium Chloride 0.45% IV CONT 55 mls/hr .Q10H SHAKILA Administration Ibuprofen 800 mg in 200 mls @ 400 mls/hr 04/04/24 21:53 04/05/24 11:01 Caldolor 800 Mg/200 Ml IVPB Infused Q6H PRN Infusion Breakthrough Pain Rated 1-3 or NPO Metronidazole 500 mg in 100 mls @ 100 mls/hr 04/04/24 22:00 04/05/24 06:14 Flagyl 500 Mg/Iso Soln 100 Ml IVPB Infused Q8H SHAKILA Infusion Sodium Chloride 1,000 mls @ 999 mls/hr 04/05/24 13:05 Normal Saline Iv IV CONT 04/05/24 14:05 .Q1H1M ONE Naloxone HCl 0.1 mg 04/04/24 21:53 Naloxone Hcl 0.4 Mg/Ml Vial IV PUSH Q2M PRN Opiate Reversal Ondansetron HCl 8 mg 04/03/24 10:15 04/04/24 22:34 Ondansetron Inj 4 Mg/2 Ml Vial IV PUSH 8 mg Q6H PRN Administration Nausea And Vomiting Phenol 1 spray 04/03/24 22:07 04/03/24 23:37 Phenol/Sod Pheno [place] (*Bkc) MUCOUS MEM 1 spray PRN PRN Administration Sore Throat Radiology Results: ITS Impressions Abdomen/Pelvis CT 04/02/24 05:56 IMPRESSION: 1. Small bowel obstruction with transition point in right abdomen. Abdomen X-Ray 04/03/24 22:26 IMPRESSION: 1. Nasogastric tube in the stomach. 2. Persistent small bowel obstruction. Small Bowel X-Ray 04/04/24 10:19 IMPRESSION: 1. Dilated small bowel with contrast remaining in the proximal small bowel at 2 hours, consistent with small bowel obstruction. Labs Labs: Laboratory Results - last 24 hr 04/04/24 04/04/24 04/04/24 12:15 14:21 17:33 WBC RBC Hgb Hct MCV MCH MCHC RDW Plt Count MPV PT 15.4 H INR 1.2 APTT 30.1 Sodium Potassium Chloride Carbon Dioxide Anion Gap BUN Creatinine Estim Creat Clear Calc Estimated GFR Glucose POC Capillary Glucose 156 H Calcium Total Bilirubin AST ALT Alkaline Phosphatase Total Protein Albumin Blood Type O Positive Antibody Screen Negative Crossmatch See Detail 04/04/24 04/05/24 21:46 05:13 WBC 15.4 H RBC 4.39 Hgb 13.3 Hct 41.6 MCV 94.8 D MCH 30.3 MCHC 32.0 RDW 14.5 Plt Count 122 L MPV 11.3 H PT 15.1 H INR 1.1 APTT Sodium 133 L Potassium 4.1 Chloride 106 Carbon Dioxide 14 L Anion Gap 13 H BUN 23 H D Creatinine 1.30 H Estim Creat Clear Calc 31 Estimated GFR 40 L Glucose 332 H POC Capillary Glucose 270 H Calcium 7.1 L Total Bilirubin 1.5 H AST 28 ALT 19 Alkaline Phosphatase 52 Total Protein 5.0 L Albumin 2.9 L Blood Type Antibody Screen Crossmatch
[2024-04-05] MEDS: SODIUM CHLORIDE 0.9% IV 1,000 ML 999 ML IV CONT ×2 (13:19→22:10)
[2024-04-05] MEDS: MORPHINE SULFATE PCA (*CRX) 30 MG/30 ML SYR IV CONT (14:52)
[2024-04-05] MEDS: DEXTROSE 5%/0.45% SOD CHL 1,000 ML 55 ML IV CONT (14:59)
[2024-04-05] MEDS: LIDOCAINE HCL 1% PF INJ 5 ML VIAL INFILTRATE (15:10)
[2024-04-05] MEDS: AMINO ACIDS 5%/D15W/E-LYTES/CA 2,000 ML with MULTIVITAMINS-12 INJ VIAL 1 2.5 ML, MULTIV... 50 ML IV CONT (16:29)
[2024-04-05] MEDS: FAT EMULSIONS IV 20% 250 ML 20.83 ML IVPB (16:29)
[2024-04-05] MEDS: diphenhydrAMINE HCl INJ 50 MG/ML VIAL 25 MG IV PUSH ×2 (16:33→23:26)
[2024-04-05] MEDS: METHYLNALTREXONE 12 MG/0.6 ML VIAL SUB-Q (16:36)
[2024-04-05 18:34] LABS: Glucose Point of Care 342 mg/dl (65-105)
[2024-04-05] MEDS: INSULIN ASPART (*BKC) 100 UNITS/ML SUB-Q (18:40)
[2024-04-05] MEDS: INSULIN GLARGINE (*BKC) 100 UNITS/ML 15 UNITS SUB-Q (22:11)
[2024-04-05] MEDS: CENTRAL LINE FLUSH 10 ML IV PUSH (22:11)
[2024-04-05 22:31] LABS: Glucose Point of Care 316 mg/dl (65-105)
[2024-04-06] VITALS (23 sets, daily range): BP systolic 144–176; BP diastolic 68–79; PULSE 107–118; RESP 13–24; TEMP 36.6–37.4; O2SAT 92–99
[2024-04-06 01:16] LABS: Glucose Point of Care 287 mg/dl (65-105)
[2024-04-06] MEDS: INSULIN ASPART (*BKC) 100 UNITS/ML SUB-Q ×4 (01:17→18:19)
[2024-04-06] MEDS: HYDROmorphone HCL INJ (*CRX) 1 MG/ML SYR IV PUSH ×6 (01:18→20:59)
[2024-04-06] MEDS: CENTRAL LINE FLUSH 20 ML IV PUSH (04:48)
[2024-04-06 04:55] LABS: Hematocrit 30.2 % (37.0-47.0); Hemoglobin 10.1 g/dL (12.0-15.0); Mean Corpuscular HGB Conc 33.4 g/dl (32-36); Mean Corpuscular Hemoglobin 30.4 pg (26-34); Platelet Count Result 110 k/mm3 (150-375); Red Blood Count 3.32 M/mm3 (4.2-5.4); Red Cell Distribution Width 14.6 % (11.5-14.5); White Blood Count 9.3 K/mm3 (4.5-10.0)
[2024-04-06] MEDS: metroNIDAZOLE 500 MG/ISO 100ML 500 MG/100 ML BAG 100 MG IVPB ×3 (04:59→20:58)
[2024-04-06] MEDS: CENTRAL LINE FLUSH 10 ML IV PUSH ×3 (05:00→20:59)
[2024-04-06 05:13] LABS: Anion Gap 6 mmol/L (4-12); Blood Urea Nitrogen 30 mg/dL (7-17); Calcium 6.6 mg/dL (8.4-10.2); Carbon Dioxide 20 mmol/L (22-30); Chloride 109 mmol/L (98-107); Estimated CRCL calculation 43 ml/min; Estimated Glomerular Filt Rate > 60; Glucose 266 mg/dL (65-110); Phosphorus 2.2 mg/dL (2.5-4.5); Potassium 3.3 mmol/L (3.4-5.0); Sodium 135 mmol/L (137-145)
[2024-04-06 05:14] LABS: Hemoglobin A1C 7.2 % (<5.7)
[2024-04-06 05:20] LABS: Transferrin 155 mg/dL (206-381)
[2024-04-06] MEDS: MORPHINE SULFATE PCA (*CRX) 30 MG/30 ML SYR IV CONT (05:20)
[2024-04-06 05:51] LABS: Glucose Point of Care 249 mg/dl (65-105)
--- NOTE | 2024-04-06 05:58 | PC.NURSE ---
PRICER total shift total taken at 0518. PRICER total was 26 mg. Volume cleared for the upcoming shift. New vial inserted due to old vial being empty. PRICER dose remains as 1 mg/hr. Basal Rate remains as 0.5 mg Q10min.
[2024-04-06] MEDS: diphenhydrAMINE HCl INJ 50 MG/ML VIAL 25 MG IV PUSH ×3 (06:57→17:32)
--- NOTE | 2024-04-06 08:35 | PCOTNOTE ---
Attempted OT evaluation this AM. Patient in bed, moaning in pain, and answers yes/no questions. Does not initiate or attempt to participate in upper extremity ROM/movement or wash her own face when handed a wash cloth. Educated on the benefits of attempting bed mobility and at least sitting on the edge of the bed. She is adamantly declining. Any attempts to help her move were resisted. RN notified. Will continue to attempt.
[2024-04-06] MEDS: ENOXAPARIN 40 MG/0.4 ML SYRINGE SUB-Q (09:00)
--- NOTE | 2024-04-06 11:45 | PC.NURSE ---
Patient has two doses of Dilaudid in the MAR. An ampule of Dilaudid was pulled (0.5mg), but (1mg) administered per MAR. Pyxis shows waste required , but MAR instructions were followed per protocol.
[2024-04-06 12:03] LABS: Glucose Point of Care 257 mg/dl (65-105)
--- NOTE | 2024-04-06 12:52 | PM.PNGS ---
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 Not pushing button for prn Morphine Continue prn Dilaudid IV push. (3) Diabetes mellitus: Code(s): E11.9 - Type 2 diabetes mellitus without complications Status: Acute Plan Surgical findings discussed with patient and family. Enterotomies requiring small bowel resection and repair of serosal tears discussed. Expecting prolonged ileus. Also discussed that intraabdominal infections or delayed bowel perforation or anastomotic leak are concerns in the early postop period. Subjective Subjective Date/Time Seen: 04/06/24 12:52 Interval history: Still weak and not getting out of bed. Moaning when awake, but pain controlled enough to rest some. Not really sure if passing flatus yet. No BM. Urine output picked up. Exam GI: Inspection: non-distended and incision (clean, dry, intact with jesse) GI Palp: Yes Soft to palpation, Yes Tenderness to palpation present (GI) and No Guarding due to palpation present (GI) Auscultation: normal bowel sounds Objective Data Vital Signs Vital Signs: Vital Signs - 24 hr 04/05/24 13:34 04/05/24 14:52 04/05/24 16:01 Temperature 98.2 F Pulse Rate 107 H Respiratory Rate 20 20 16 Blood Pressure 132/54 L Pulse Oximetry 97 96 96 Oxygen Delivery Oxygen Flow Rate Fraction of Inspired Oxygen 04/05/24 17:01 04/05/24 16:58 04/05/24 16:50 Temperature 97.6 F Pulse Rate 107 H 105 H Respiratory Rate 14 16 14 Blood Pressure 143/64 H Pulse Oximetry 98 98 98 Oxygen Delivery Nasal Cannula Oxygen Flow Rate 2 Fraction of Inspired Oxygen 04/05/24 18:01 04/05/24 18:18 04/05/24 19:01 Temperature 97.7 F Pulse Rate 111 H Respiratory Rate 16 18 16 Blood Pressure 141/77 H Pulse Oximetry 97 97 98 Oxygen Delivery Oxygen Flow Rate Fraction of Inspired Oxygen 04/05/24 19:31 04/05/24 19:53 04/05/24 20:01 Temperature 98.4 F Pulse Rate 111 H Respiratory Rate 20 16 Blood Pressure 149/68 H Pulse Oximetry 97 98 97 Oxygen Delivery Nasal Cannula Oxygen Flow Rate 2 Fraction of Inspired Oxygen 04/05/24 20:01 04/05/24 21:22 04/05/24 22:01 Temperature 98.2 F Pulse Rate 112 H Respiratory Rate 16 20 16 Blood Pressure 165/74 H Pulse Oximetry 97 100 98 Oxygen Delivery Oxygen Flow Rate Fraction of Inspired Oxygen 04/05/24 22:01 04/05/24 23:26 04/06/24 00:01 Temperature 98.8 F Pulse Rate 109 H Respiratory Rate 16 20 15 Blood Pressure 135/74 Pulse Oximetry 98 98 98 Oxygen Delivery Oxygen Flow Rate Fraction of Inspired Oxygen 04/06/24 00:01 04/06/24 01:34 04/06/24 02:01 Temperature 98.8 F Pulse Rate 116 H Respiratory Rate 15 20 13 Blood Pressure 167/74 H Pulse Oximetry 98 97 96 Oxygen Delivery Oxygen Flow Rate Fraction of Inspired Oxygen 04/06/24 02:01 04/06/24 03:28 04/06/24 04:01 Temperature 98.2 F Pulse Rate 114 H Respiratory Rate 13 20 15 Blood Pressure 168/77 H Pulse Oximetry 96 98 97 Oxygen Delivery Oxygen Flow Rate Fraction of Inspired Oxygen 04/06/24 04:01 04/06/24 05:20 04/06/24 05:34 Temperature 98.4 F Pulse Rate 109 H Respiratory Rate 15 17 20 Blood Pressure 170/70 H Pulse Oximetry 97 97 95 Oxygen Delivery Oxygen Flow Rate Fraction of Inspired Oxygen 04/06/24 06:01 04/06/24 08:23 04/06/24 09:09 Temperature 98 F Pulse Rate 107 H Respiratory Rate 15 18 Blood Pressure 152/75 H Pulse Oximetry 94 97 95 Oxygen Delivery Nasal Cannula Oxygen Flow Rate 2 Fraction of Inspired Oxygen 28 04/06/24 09:11 04/06/24 09:41 04/06/24 09:09 Temperature 98 F Pulse Rate 110 H Respiratory Rate 20 20 Blood Pressure Pulse Oximetry 96 96 Oxygen Delivery Nasal Cannula Oxygen Flow Rate 2 Fraction of Inspired Oxygen 04/06/24 10:36 04/06/24 11:27 04/06/24 12:22 Temperature 98.0 F Pulse Rate 112 H Respiratory Rate 15 16 20 Blood Pressure 160/68 H Pulse Oximetry 99 95 95 Oxygen Delivery Oxygen Flow Rate Fraction of Inspired Oxygen Intake/Output Intake/Output: Intake & Output 04/03/24 04/04/24 04/05/24 04/06/24 23:59 23:59 23:59 23:59 Intake Total 989.1 1957.5 1307.6 350 Output Total 1004 8152 725 3251 Balance -14.9 493.5 907.6 -1275 Meds/Results Medications: Active Medications Generic Name Dose Route Start Last Admin Trade Name Freq PRN Reason Stop Dose Admin Dextrose 12.5 gm 04/05/24 13:22 Dextrose 50% 25 Gm/50 Ml Syringe IV PUSH PRN PRN Hypoglycemia Protocol Diphenhydramine HCl 25 mg 04/05/24 13:05 04/06/24 11:19 Diphenhydramine Hcl Inj 50 Mg/Ml Vial IV PUSH 25 mg Q4H PRN Administration Itching Enoxaparin Sodium 40 mg 04/05/24 09:00 04/06/24 09:00 Enoxaparin 40 Mg/0.4 Ml Syringe SUB-Q 40 mg DAILY SHAKILA Administration Glucagon 1 mg 04/05/24 13:22 Glucagon For Inj 1 Mg Vial IM PRN PRN Hypoglycemia Protocol Glucose 15 gm 04/05/24 13:22 Glucose Oral Gel 15 Gm Of Glucse In 37.5 Gm Tube PO PRN PRN Hypoglycemia Protocol Hydromorphone HCl 1 mg 04/04/24 21:53 04/06/24 11:23 Hydromorphone Hcl Inj (*Crx) 1 Mg/Ml Syr IV PUSH 1 mg Q2H PRN Administration Breakthrough Pain Rated 7-10 or NPO Hydromorphone HCl 0.5 mg 04/04/24 21:53 04/05/24 06:31 Hydromorphone Hcl Inj (*Crx) 1 Mg/Ml Syr IV PUSH 0.5 mg Q2H PRN Administration Breakthrough Pain Rated 4-6 or NPO Dextrose/Sodium Chloride 1,000 mls @ 100 mls/hr 04/02/24 19:35 04/05/24 14:59 Dextrose 5% Sodium Chloride 0.45% IV CONT 55 mls/hr .Q10H SHAKILA Administration Ibuprofen 800 mg in 200 mls @ 400 mls/hr 04/04/24 21:53 04/05/24 11:01 Caldolor 800 Mg/200 Ml IVPB Infused Q6H PRN Infusion Breakthrough Pain Rated 1-3 or NPO Metronidazole 500 mg in 100 mls @ 100 mls/hr 04/04/24 22:00 04/06/24 05:59 Flagyl 500 Mg/Iso Soln 100 Ml IVPB Infused Q8H SHAKILA Infusion Morphine Sulfate 30 mg in 30 mls @ 1 mls/hr 04/05/24 13:12 04/06/24 11:27 Morphine Sulfate Undercover Agent IV CONT 1 mg/hr PRN PRN 1 mls/hr FIELD SERVICE ENGINEER Management Titration Protocol 1 MG/HR Dextrose 1,000 mls @ 100 mls/hr 04/05/24 13:22 Dextrose 5% 1,000 Ml IVPB PRN PRN Hypoglycemia Protocol Dextrose 1,000 mls @ 50 mls/hr 04/05/24 15:13 Dextrose 10% IV CONT .Q20H PRN if PN is interrupted Multivitamins 2.5 ml/ 2,005 mls @ 50 mls/hr 04/05/24 16:00 04/05/24 16:29 Multivitamins 2.5 ml/ Amino IV CONT 50 mls/hr Acids/Electrolytes/Dextrose .Q24H SHAKILA Administration Protocol Fat Emulsion Intravenous 250 mls @ 20.833 mls/hr 04/05/24 16:00 04/06/24 04:30 Lipids 20% IVPB Infused Q24H SHAKILA Infusion Insulin Aspart 2 - 5 units 04/05/24 18:00 04/06/24 12:14 Insulin Aspart (*Bkc) 100 Units/Ml SUB-Q 3 units Q6HR COUNT INCLUDES [facility] Administration Protocol Insulin Glargine 15 units 04/05/24 21:00 04/05/24 22:11 Insulin Glargine (*Bkc) 100 Units/Ml 0.25 units/kg (15 units) 15 units SUB-Q Administration HS SHAKILA Naloxone HCl 0.1 mg 04/04/24 21:53 Naloxone Hcl 0.4 Mg/Ml Vial IV PUSH Q2M PRN Opiate Reversal Ondansetron HCl 8 mg 04/03/24 10:15 04/04/24 22:34 Ondansetron Inj 4 Mg/2 Ml Vial IV PUSH 8 mg Q6H PRN Administration Nausea And Vomiting Phenol 1 spray 04/03/24 22:07 04/03/24 23:37 Phenol/Sod Pheno [place] Strauss (*Bkc) MUCOUS MEM 1 spray PRN PRN Administration Sore Throat Sodium Chloride 20 ml 04/05/24 16:15 04/06/24 04:48 Central Line Flush IV PUSH 20 ml PRN PRN Administration after blood draws Sodium Chloride 10 ml 04/05/24 16:15 Central Line Flush IV PUSH PRN PRN with TPN bag changes Sodium Chloride 10 ml 04/05/24 22:00 04/06/24 05:00 Central Line Flush IV PUSH 10 ml Q8HR SHAKILA Administration Radiology Results: ITS Impressions Abdomen/Pelvis CT 04/02/24 05:56 IMPRESSION: 1. Small bowel obstruction with transition point in right abdomen. Abdomen X-Ray 04/03/24 22:26 IMPRESSION: 1. Nasogastric tube in the stomach. 2. Persistent small bowel obstruction. Small Bowel X-Ray 04/04/24 10:19 IMPRESSION: 1. Dilated small bowel with contrast remaining in the proximal small bowel at 2 hours, consistent with small bowel obstruction. Labs Labs: Laboratory Results - last 24 hr 04/05/24 04/05/24 04/06/24 18:29 22:13 01:12 WBC RBC Hgb Hct MCV MCH MCHC RDW Plt Count MPV Sodium Potassium Chloride Carbon Dioxide Anion Gap BUN Creatinine Estim Creat Clear Calc Estimated GFR Glucose POC Capillary Glucose 342 H 316 H 287 H Hemoglobin A1c Calcium Phosphorus Transferrin 04/06/24 04/06/24 04/06/24 04:45 04:46 05:46 WBC 9.3 RBC 3.32 L Hgb 10.1 L D Hct 30.2 L MCV 91.0 MCH 30.4 MCHC 33.4 RDW 14.6 H Plt Count 110 L MPV 11.0 H Sodium 135 L Potassium 3.3 L Chloride 109 H Carbon Dioxide 20 L Anion Gap 6 BUN 30 H Creatinine 0.90 Estim Creat Clear Calc 43 Estimated GFR > 60 Glucose 266 H POC Capillary Glucose 249 H Hemoglobin A1c 7.2 H Calcium 6.6 L Phosphorus 2.2 L Transferrin 155 L 04/06/24 12:01 WBC RBC Hgb Hct MCV MCH MCHC RDW Plt Count MPV Sodium Potassium Chloride Carbon Dioxide Anion Gap BUN Creatinine Estim Creat Clear Calc Estimated GFR Glucose POC Capillary Glucose 257 H Hemoglobin A1c Calcium Phosphorus Transferrin
[2024-04-06 14:55] LABS: Triglycerides 135 mg/dL (<150)
[2024-04-06] MEDS: AMINO ACIDS 5%/D15W/E-LYTES/CA 2,000 ML with MULTIVITAMINS-12 INJ VIAL 1 2.5 ML, MULTIV... 50 ML IV CONT (15:00)
[2024-04-06] MEDS: FAT EMULSIONS IV 20% 250 ML 20 ML IVPB (15:10)
--- NOTE | 2024-04-06 15:38 | PM.IMPN ---
Progress Note: A&P Assessment and Plan (1) Small bowel obstruction: Code(s): K56.609 - Unspecified intestinal obstruction, unspecified as to partial versus complete obstruction Status: Acute Assessment and Plan: 04/04 Exploratory lap with SB resection, adhesionolysis, and ileostomy (2) Abdominal pain: Code(s): R10.9 - Unspecified abdominal pain Status: Acute Assessment and Plan: 04/05 POD1 Expl Lap, SB resection, adhesionolysis, ileostomy: pain uncontrolled, d/w Dr. Friend and he ordered DIVIDEND DEPOSIT ENTRY CLERK morphine rate 1 mg/hr with prn bolus, prn Naloxone 04/06 POD2 pain control much better. Continue DIVIDEND DEPOSIT ENTRY CLERK. Continue Clinimax nutrition. Ca 6.6 (corrects to 7.5 based on 04/05 albumin, but today's albumin is likely lower). F/u lab (3) Nausea & vomiting: Code(s): R11.2 - Nausea with vomiting, unspecified Status: Acute Assessment and Plan: 04/[address] (4) Diabetes mellitus: Code(s): E11.9 - Type 2 diabetes mellitus without complications Status: Acute Assessment and Plan: 04/05 FBS 332, current has D5 in IV but plan is for PICC line for TPN 04/05 Basal glargine 15 U and low dose q 6h corrective regimen 04/06AM Blood sugar 249, TPN running, Basal glargine increased to 20 U (5) Essential hypertension: Code(s): I10 - Essential (primary) hypertension Status: Acute Assessment and Plan: 04/05 137/58 Subjective Date/time seen: 04/06/24 15:38 Interval history: Pain control better on DIVIDEND DEPOSIT ENTRY CLERK. Is not pushing the p.r.n. button herself but staff is helping her out when she is moaning. Review of Systems Review of Systems: ROS unobtainable: Yes unobtainable due to medical condition Exam Narrative: HEENT: PERRL, sclerae nonicteric, pharyngeal mucosa pink and intact. NECK: No JVD. CHEST: Clear to auscultation. Normal effort. HEART: NL S1/S2, regular, no murmur ABDOMEN: BS absent, soft, SEVERE TENDERNESS YOCASTA-INCISIONAL EXTREMITIES: No cyanosis, edema, or clubbing NEUROLOGIC: CN intact and symmetric to inspection. MUSCULOSKELETAL: Tone and strength symmetric. PSYCH: Drowsy but arouses easily. Ox1. Moaning while awake, but follows commands. Objective Data Vital Signs Vital Signs: Vital Signs - 24 hr 04/05/24 16:01 04/05/24 17:01 04/05/24 16:58 Temperature 97.6 F Pulse Rate 107 H Respiratory Rate 16 14 16 Blood Pressure 143/64 H Pulse Oximetry 96 98 98 Oxygen Delivery Oxygen Flow Rate Fraction of Inspired Oxygen 04/05/24 16:50 04/05/24 18:01 04/05/24 18:18 Temperature 97.7 F Pulse Rate 105 H 111 H Respiratory Rate 14 16 18 Blood Pressure 141/77 H Pulse Oximetry 98 97 97 Oxygen Delivery Nasal Cannula Oxygen Flow Rate 2 Fraction of Inspired Oxygen 04/05/24 19:01 04/05/24 19:31 04/05/24 19:53 Temperature 98.4 F Pulse Rate 111 H Respiratory Rate 16 20 Blood Pressure 149/68 H Pulse Oximetry 98 97 98 Oxygen Delivery Nasal Cannula Oxygen Flow Rate 2 Fraction of Inspired Oxygen 04/05/24 20:01 04/05/24 20:01 04/05/24 21:22 Temperature 98.2 F Pulse Rate 112 H Respiratory Rate 16 16 20 Blood Pressure 165/74 H Pulse Oximetry 97 97 100 Oxygen Delivery Oxygen Flow Rate Fraction of Inspired Oxygen 04/05/24 22:01 04/05/24 22:01 04/05/24 23:26 Temperature 98.8 F Pulse Rate 109 H Respiratory Rate 16 16 20 Blood Pressure 135/74 Pulse Oximetry 98 98 98 Oxygen Delivery Oxygen Flow Rate Fraction of Inspired Oxygen 04/06/24 00:01 04/06/24 00:01 04/06/24 01:34 Temperature 98.8 F Pulse Rate 116 H Respiratory Rate 15 15 20 Blood Pressure 167/74 H Pulse Oximetry 98 98 97 Oxygen Delivery Oxygen Flow Rate Fraction of Inspired Oxygen 04/06/24 02:01 04/06/24 02:01 04/06/24 03:28 Temperature 98.2 F Pulse Rate 114 H Respiratory Rate 13 13 20 Blood Pressure 168/77 H Pulse Oximetry 96 96 98 Oxygen Delivery Oxygen Flow Rate Fraction of Inspired Oxygen 04/06/24 04:01 04/06/24 04:01 04/06/24 05:20 Temperature Pulse Rate Respiratory Rate 15 15 17 Blood Pressure Pulse Oximetry 97 97 97 Oxygen Delivery Oxygen Flow Rate Fraction of Inspired Oxygen 04/06/24 05:34 04/06/24 06:01 04/06/24 08:23 Temperature 98.4 F Pulse Rate 109 H Respiratory Rate 20 15 Blood Pressure 170/70 H Pulse Oximetry 95 94 97 Oxygen Delivery Nasal Cannula Oxygen Flow Rate 2 Fraction of Inspired Oxygen 04/06/24 09:09 04/06/24 09:11 04/06/24 09:41 Temperature 98 F 98 F Pulse Rate 107 H 110 H Respiratory Rate 18 20 Blood Pressure 152/75 H Pulse Oximetry 95 96 Oxygen Delivery Nasal Cannula Oxygen Flow Rate 2 Fraction of Inspired Oxygen 04/06/24 09:09 04/06/24 10:36 04/06/24 11:27 Temperature Pulse Rate Respiratory Rate 20 15 16 Blood Pressure Pulse Oximetry 96 99 95 Oxygen Delivery Oxygen Flow Rate Fraction of Inspired Oxygen 04/06/24 12:22 04/06/24 13:27 04/06/24 14:17 Temperature 98.0 F Pulse Rate 112 H 114 H Respiratory Rate 20 14 14 Blood Pressure 160/68 H Pulse Oximetry 95 96 96 Oxygen Delivery Nasal Cannula Oxygen Flow Rate 2 Fraction of Inspired Oxygen 04/06/24 15:18 Temperature Pulse Rate Respiratory Rate 14 Blood Pressure Pulse Oximetry 96 Oxygen Delivery Oxygen Flow Rate Fraction of Inspired Oxygen Intake/Output Intake/Output: Intake & Output 04/03/24 04/04/24 04/05/24 04/06/24 23:59 23:59 23:59 23:59 Intake Total 989.1 1957.5 1307.6 1575.8 Output Total 1004 6737 401 5619 Balance -14.9 493.5 907.6 -49.2 Meds/Results Medications: Active Medications Generic Name Dose Route Start Last Admin Trade Name Freq PRN Reason Stop Dose Admin Dextrose 12.5 gm 04/05/24 13:22 Dextrose 50% 25 Gm/50 Ml Syringe IV PUSH PRN PRN Hypoglycemia Protocol Diphenhydramine HCl 25 mg 04/05/24 13:05 04/06/24 11:19 Diphenhydramine Hcl Inj 50 Mg/Ml Vial IV PUSH 25 mg Q4H PRN Administration Itching Enoxaparin Sodium 40 mg 04/05/24 09:00 04/06/24 09:00 Enoxaparin 40 Mg/0.4 Ml Syringe SUB-Q 40 mg DAILY SHAKILA Administration Glucagon 1 mg 04/05/24 13:22 Glucagon For Inj 1 Mg Vial IM PRN PRN Hypoglycemia Protocol Glucose 15 gm 04/05/24 13:22 Glucose Oral Gel 15 Gm Of Glucse In 37.5 Gm Tube PO PRN PRN Hypoglycemia Protocol Hydromorphone HCl 1 mg 04/04/24 21:53 04/06/24 14:51 Hydromorphone Hcl Inj (*Crx) 1 Mg/Ml Syr IV PUSH 1 mg Q2H PRN Administration Breakthrough Pain Rated 7-10 or NPO Hydromorphone HCl 0.5 mg 04/04/24 21:53 04/05/24 06:31 Hydromorphone Hcl Inj (*Crx) 1 Mg/Ml Syr IV PUSH 0.5 mg Q2H PRN Administration Breakthrough Pain Rated 4-6 or NPO Dextrose/Sodium Chloride 1,000 mls @ 100 mls/hr 04/02/24 19:35 04/05/24 14:59 Dextrose 5% Sodium Chloride 0.45% IV CONT 55 mls/hr .Q10H SHAKILA Administration Ibuprofen 800 mg in 200 mls @ 400 mls/hr 04/04/24 21:53 04/05/24 11:01 Caldolor 800 Mg/200 Ml IVPB Infused Q6H PRN Infusion Breakthrough Pain Rated 1-3 or NPO Metronidazole 500 mg in 100 mls @ 100 mls/hr 04/04/24 22:00 04/06/24 14:29 Flagyl 500 Mg/Iso Soln 100 Ml IVPB Infused Q8H SHAKILA Infusion Morphine Sulfate 30 mg in 30 mls @ 1 mls/hr 04/05/24 13:12 04/06/24 15:18 Morphine Sulfate Decorating Machine Tender IV CONT 1 mg/hr PRN PRN 1 mls/hr [employer]END DEPOSIT ENTRY CLERK Management Titration Protocol 1 MG/HR Dextrose 1,000 mls @ 100 mls/hr 04/05/24 13:22 Dextrose 5% 1,000 Ml IVPB PRN PRN Hypoglycemia Protocol Dextrose 1,000 mls @ 50 mls/hr 04/05/24 15:13 Dextrose 10% IV CONT .Q20H PRN if PN is interrupted Multivitamins 2.5 ml/ 2,005 mls @ 50 mls/hr 04/05/24 16:00 04/06/24 15:00 Multivitamins 2.5 ml/ Amino IV CONT 50 mls/hr Acids/Electrolytes/Dextrose .Q24H SHAKILA Administration Protocol Fat Emulsion Intravenous 250 mls @ 20.833 mls/hr 04/05/24 16:00 04/06/24 15:10 Lipids 20% IVPB 20 mls/hr Q24H SHAKILA Administration Insulin Aspart 2 - 5 units 04/05/24 18:00 04/06/24 12:14 Insulin Aspart (*Bkc) 100 Units/Ml SUB-Q 3 units Q6HR SHAKILA Administration Protocol Insulin Glargine 15 units 04/05/24 21:00 04/05/24 22:11 Insulin Glargine (*Bkc) 100 Units/Ml 0.25 units/kg (15 units) 15 units SUB-Q Administration [facility] Naloxone HCl 0.1 mg 04/04/24 21:53 Naloxone Hcl 0.4 Mg/Ml Vial IV PUSH Q2M PRN Opiate Reversal Ondansetron HCl 8 mg 04/03/24 10:15 04/04/24 22:34 Ondansetron Inj 4 Mg/2 Ml Vial IV PUSH 8 mg Q6H PRN Administration Nausea And Vomiting Phenol 1 spray 04/03/24 22:07 04/03/24 23:37 Phenol/Sod Pheno [place] Strauss (*Bkc) MUCOUS MEM 1 spray PRN PRN Administration Sore Throat Sodium Chloride 20 ml 04/05/24 16:15 04/06/24 04:48 Central Line Flush IV PUSH 20 ml PRN PRN Administration after blood draws Sodium Chloride 10 ml 04/05/24 16:15 Central Line Flush IV PUSH PRN PRN with TPN bag changes Sodium Chloride 10 ml 04/05/24 22:00 04/06/24 15:08 Central Line Flush IV PUSH 10 ml Q8HR SHAKILA Administration Radiology Results: ITS Impressions Abdomen/Pelvis CT 04/02/24 05:56 IMPRESSION: 1. Small bowel obstruction with transition point in right abdomen. Abdomen X-Ray 04/03/24 22:26 IMPRESSION: 1. Nasogastric tube in the stomach. 2. Persistent small bowel obstruction. Small Bowel X-Ray 04/04/24 10:19 IMPRESSION: 1. Dilated small bowel with contrast remaining in the proximal small bowel at 2 hours, consistent with small bowel obstruction. Labs Labs: Laboratory Results - last 24 hr 04/05/24 04/05/24 04/06/24 18:29 22:13 01:12 WBC RBC Hgb Hct MCV MCH MCHC RDW Plt Count MPV Sodium Potassium Chloride Carbon Dioxide Anion Gap BUN Creatinine Estim Creat Clear Calc Estimated GFR Glucose POC Capillary Glucose 342 H 316 H 287 H Hemoglobin A1c Calcium Phosphorus Transferrin Triglycerides 04/06/24 04/06/24 04/06/24 04:45 04:46 05:46 WBC 9.3 RBC 3.32 L Hgb 10.1 L D Hct 30.2 L MCV 91.0 MCH 30.4 MCHC 33.4 RDW 14.6 H Plt Count 110 L MPV 11.0 H Sodium 135 L Potassium 3.3 L Chloride 109 H Carbon Dioxide 20 L Anion Gap 6 BUN 30 H Creatinine 0.90 Estim Creat Clear Calc 43 Estimated GFR > 60 Glucose 266 H POC Capillary Glucose 249 H Hemoglobin A1c 7.2 H Calcium 6.6 L Phosphorus 2.2 L Transferrin 155 L Triglycerides 135 04/06/24 12:01 WBC RBC Hgb Hct MCV MCH MCHC RDW Plt Count MPV Sodium Potassium Chloride Carbon Dioxide Anion Gap BUN Creatinine Estim Creat Clear Calc Estimated GFR Glucose POC Capillary Glucose 257 H Hemoglobin A1c Calcium Phosphorus Transferrin Triglycerides
[2024-04-06] MEDS: DEXTROSE 5%/0.45% SOD CHL 1,000 ML 55 ML IV CONT (17:23)
[2024-04-06 18:18] LABS: Glucose Point of Care 306 mg/dl (65-105)
[2024-04-06 21:06] LABS: Glucose Point of Care 283 mg/dl (65-105)
[2024-04-07] VITALS (20 sets, daily range): BP systolic 145–178; BP diastolic 66–83; PULSE 85–120; RESP 12–22; TEMP 36.2–37; O2SAT 93–98; BMI 24.4
[2024-04-07] LABS: Glucose Point of Care 327 mg/dl (65-105)
[2024-04-07] MEDS: INSULIN ASPART (*BKC) 100 UNITS/ML SUB-Q ×4 (00:39→18:07)
[2024-04-07] MEDS: INSULIN GLARGINE (*BKC) 100 UNITS/ML 20 UNITS SUB-Q (00:40)
[2024-04-07] MEDS: metroNIDAZOLE 500 MG/ISO 100ML 500 MG/100 ML BAG 100 MG IVPB (05:30)
[2024-04-07 06:44] LABS: Glucose Point of Care 276 mg/dl (65-105)
[2024-04-07] MEDS: CENTRAL LINE FLUSH 10 ML IV PUSH ×3 (06:50→20:02)
[2024-04-07 07:02] LABS: Basophils Percent Auto 0.3 % (0.2-1.2); Eosinophils Absolute Auto 0.2 K/mm3 (0-0.3); Hematocrit 26.8 % (37.0-47.0); Immature Granulocyte Absolute 0.08 K/mm3 (0.00-0.031); Lymphocytes Absolute Auto 1.05 K/mm3 (0.9-3.2); Lymphocytes Percent Auto 13.7 % (18.3-44.2); Mean Corpuscular HGB Conc 33.6 g/dl (32-36); Mean Corpuscular Hemoglobin 30.7 pg (26-34); Mean Corpuscular Volume 91.5 fl (80-100); Mean Platelet Volume 10.4 fl (7.4-10.4); Monocytes Absolute Auto 0.5 K/mm3 (0.1-0.6); Monocytes Percent Auto 6.8 % (2.6-8.5); Neutrophils Absolute Auto 5.7 K/mm3 (1.3-6.7); Neutrophils Percent Auto 75.2 % (45.5-73.1); Platelet Count Result 106 k/mm3 (150-375); Red Blood Count 2.93 M/mm3 (4.2-5.4); Red Cell Distribution Width 14.2 % (11.5-14.5); White Blood Count 7.6 K/mm3 (4.5-10.0)
[2024-04-07 07:13] LABS: Alanine Aminotransferase 15 U/L (6-35); Albumin Level 2.4 g/dL (3.5-5.1); Alkaline Phosphatase 50 U/L (38-126); Anion Gap 4 mmol/L (4-12); Aspartate Amino Transferase 16 U/L (14-36); Bilirubin,Total 0.6 mg/dL (0.2-1.3); Blood Urea Nitrogen 22 mg/dL (7-17); Calcium 7.2 mg/dL (8.4-10.2); Carbon Dioxide 26 mmol/L (22-30); Chloride 107 mmol/L (98-107); Estimated CRCL calculation 63 ml/min; Estimated Glomerular Filt Rate > 60; Glucose 265 mg/dL (65-110); Magnesium 1.7 mg/dL (1.6-2.3); Phosphorus 1.5 mg/dL (2.5-4.5); Sodium 137 mmol/L (137-145)
[2024-04-07 07:16] LABS: INR 1.2; Prothrombin Time 15.9 Seconds (11.1-14.7)
[2024-04-07 07:17] LABS: Partial Thromboplastin Time 35.8 Seconds (22.3-36.8)
[2024-04-07 07:20] LABS: Transferrin 132 mg/dL (206-381)
--- NOTE | 2024-04-07 08:32 | PM.IMPN ---
Progress Note: A&P Assessment and Plan (1) Small bowel obstruction: Code(s): K56.609 - Unspecified intestinal obstruction, unspecified as to partial versus complete obstruction Status: Acute (2) Diabetes mellitus: Code(s): E11.9 - Type 2 diabetes mellitus without complications Status: Acute Plan Small bowel obstruction: Code(s): K56.609 - Unspecified intestinal obstruction, unspecified as to partial versus complete obstruction Status: Acute Assessment and Plan: 04/04 Exploratory lap with SB resection, adhesionolysis, and ileostomy TPN running, monitor electrolytes Continue FUR GLOSSER. Acute blood loss anemia Likely resulting from surgical procedure Hemoglobin 9.0, hemoglobin 13.3 upon arrival Follow iron panel Electrolyte abnormality Hypokalemia potassium 3.0 Hypocalcemia Ca 7.2 Hypophosphatemia 1.5 Hypoalbuminemia 2.4 Replete with potassium chloride 40 mEq IV once, potassium phosphate 20 in mid pneumonia once calcium gluconate 1 g IV once Follow-up ionized calcium, BMP, correct electrolyte abnormality accordingly Hypoalbuminemia Albumin 2.4 today, upon arrival in 4.4 Provide albumin 25 g IV once Diabetes mellitus: Code(s): E11.9 - Type 2 diabetes mellitus without complications Status: Acute Assessment and Plan: 04/05 FBS 332, current has D5 in IV but plan is for PICC line for TPN 04/05 Basal glargine 15 U and low dose q 6h corrective regimen 04/06AM Blood sugar 249, TPN running, Basal glargine increased to 20 U Glucose is not uncontrolled and target increase Lantus to 25 unit, continue insulin sliding scale q.6 hour 04/07 Essential hypertension: Code(s): I10 - Essential (primary) hypertension Status: Acute Assessment and Plan: 04/05 137/58 Subjective Date/time seen: 04/07/24 08:32 Interval history: I saw and examined the patient today, patient still has abdomen pain, patient is on intermittent suction, denies nausea vomiting. Patient also denies chest pain, shortness are breath, lightheadedness. Patient has general weakness. Exam Narrative: GENERAL: Ill-appearing in no acute distress. Well-nourished. - EYES: EOMI. Anicteric. - HENT: Moist mucous membranes. - LUNGS: Clear to auscultation bilaterally, no wheezing, rhonchi, or rales. - CARDIOVASCULAR: Regular rate and rhythm. No murmur. No JVD. - ABDOMEN: Soft, mild diffuse tender and non-distended. No palpable masses. Surgical wound is dry and clean, hypoactive bowel sounds - EXTREMITIES: No edema. Peripheral pulses 2+. Non-tender. - NEUROLOGIC: No focal neurological deficits. CN II-XII grossly intact. General weakness, - PSYCHIATRIC: Awake, Alert and oriented x 3. Appropriate mood and affect. - SKIN: No rashes or lesions. Warm. - LYMPH: No cervical lymphadenopathy. Objective Data Vital Signs Vital Signs: Vital Signs - 24 hr 04/06/24 09:09 04/06/24 09:11 04/06/24 09:41 Temperature 98 F 98 F Pulse Rate 107 H 110 H Respiratory Rate 18 20 Blood Pressure 152/75 H Pulse Oximetry 95 96 Oxygen Delivery Nasal Cannula Oxygen Flow Rate 2 Fraction of Inspired Oxygen 04/06/24 09:09 04/06/24 10:36 04/06/24 11:27 Temperature Pulse Rate Respiratory Rate 20 15 16 Blood Pressure Pulse Oximetry 96 99 95 Oxygen Delivery Oxygen Flow Rate Fraction of Inspired Oxygen 04/06/24 12:22 04/06/24 13:27 04/06/24 14:17 Temperature 98.0 F Pulse Rate 112 H 114 H Respiratory Rate 20 14 14 Blood Pressure 160/68 H Pulse Oximetry 95 96 96 Oxygen Delivery Nasal Cannula Oxygen Flow Rate 2 Fraction of Inspired Oxygen 04/06/24 15:18 04/06/24 15:51 04/06/24 17:45 Temperature 99.3 F Pulse Rate 116 H Respiratory Rate 14 18 14 Blood Pressure 176/76 H Pulse Oximetry 96 96 96 Oxygen Delivery Oxygen Flow Rate Fraction of Inspired Oxygen 04/06/24 20:19 04/07/24 00:16 04/07/24 01:59 Temperature 98.0 F 98.3 F Pulse Rate 118 H 120 H Respiratory Rate 24 H 22 H 12 Blood Pressure 144/79 H 148/66 H Pulse Oximetry 94 97 93 Oxygen Delivery Oxygen Flow Rate Fraction of Inspired Oxygen 04/06/24 20:00 04/07/24 05:03 04/06/24 23:00 Temperature 98.6 F Pulse Rate 93 Respiratory Rate 20 Blood Pressure 145/78 H Pulse Oximetry 92 97 97 Oxygen Delivery Nasal Cannula Nasal Cannula Oxygen Flow Rate 2 2 Fraction of Inspired Oxygen Intake/Output Intake/Output: Intake & Output 04/04/24 04/05/24 04/06/24 04/07/24 23:59 23:59 23:59 23:59 Intake Total 1957.5 1307.6 2675.8 100 Output Total 2505 686 5829 1300 Balance 493.5 907.6 300.8 -1200 Meds/Results Medications: Active Medications Generic Name Dose Route Start Last Admin Trade Name Freq PRN Reason Stop Dose Admin Dextrose 12.5 gm 04/05/24 13:22 Dextrose 50% 25 Gm/50 Ml Syringe IV PUSH PRN PRN Hypoglycemia Protocol Diphenhydramine HCl 25 mg 04/05/24 13:05 04/06/24 17:32 Diphenhydramine Hcl Inj 50 Mg/Ml Vial IV PUSH 25 mg Q4H PRN Administration Itching Enoxaparin Sodium 40 mg 04/05/24 09:00 04/06/24 09:00 Enoxaparin 40 Mg/0.4 Ml Syringe SUB-Q 40 mg DAILY SHAKILA Administration Glucagon 1 mg 04/05/24 13:22 Glucagon For Inj 1 Mg Vial IM PRN PRN Hypoglycemia Protocol Glucose 15 gm 04/05/24 13:22 Glucose Oral Gel 15 Gm Of Glucse In 37.5 Gm Tube PO PRN PRN Hypoglycemia Protocol Hydromorphone HCl 1 mg 04/04/24 21:53 04/06/24 20:59 Hydromorphone Hcl Inj (*Crx) 1 Mg/Ml Syr IV PUSH 1 mg Q2H PRN Administration Breakthrough Pain Rated 7-10 or NPO Hydromorphone HCl 0.5 mg 04/04/24 21:53 04/05/24 06:31 Hydromorphone Hcl Inj (*Crx) 1 Mg/Ml Syr IV PUSH 0.5 mg Q2H PRN Administration Breakthrough Pain Rated 4-6 or NPO Dextrose/Sodium Chloride 1,000 mls @ 100 mls/hr 04/02/24 19:35 04/06/24 17:23 Dextrose 5% Sodium Chloride 0.45% IV CONT 55 mls/hr .Q10H SHAKILA Administration Ibuprofen 800 mg in 200 mls @ 400 mls/hr 04/04/24 21:53 04/05/24 11:01 Caldolor 800 Mg/200 Ml IVPB Infused Q6H PRN Infusion Breakthrough Pain Rated 1-3 or NPO Metronidazole 500 mg in 100 mls @ 100 mls/hr 04/04/24 22:00 04/07/24 06:48 Flagyl 500 Mg/Iso Soln 100 Ml IVPB Infused Q8H SHAKILA Infusion Morphine Sulfate 30 mg in 30 mls @ 1 mls/hr 04/05/24 13:12 04/07/24 01:59 Morphine Sulfate Fire Extinguisher Sprinkler Inspector IV CONT 1 mg/hr PRN PRN 1 mls/hr FUR GLOSSER Management Titration Protocol 1 MG/HR Dextrose 1,000 mls @ 100 mls/hr 04/05/24 13:22 Dextrose 5% 1,000 Ml IVPB PRN PRN Hypoglycemia Protocol Dextrose 1,000 mls @ 50 mls/hr 04/05/24 15:13 Dextrose 10% IV CONT .Q20H PRN if PN is interrupted Multivitamins 2.5 ml/ 2,005 mls @ 50 mls/hr 04/05/24 16:00 04/06/24 15:00 Multivitamins 2.5 ml/ Amino IV CONT 50 mls/hr Acids/Electrolytes/Dextrose .Q24H SHAKILA Administration Protocol Fat Emulsion Intravenous 250 mls @ 20.833 mls/hr 04/05/24 16:00 04/06/24 15:10 Lipids 20% IVPB 20 mls/hr Q24H SHAKILA Administration Insulin Aspart 2 - 5 units 04/05/24 18:00 04/07/24 06:50 Insulin Aspart (*Bkc) 100 Units/Ml SUB-Q 3 units Q6HR SHAKILA Administration Protocol Insulin Glargine 20 units 04/06/24 21:00 04/07/24 00:40 Insulin Glargine (*Bkc) 100 Units/Ml SUB-Q 20 units HS SHAKILA Administration Naloxone HCl 0.1 mg 04/04/24 21:53 Naloxone Hcl 0.4 Mg/Ml Vial IV PUSH Q2M PRN Opiate Reversal Ondansetron HCl 8 mg 04/03/24 10:15 04/04/24 22:34 Ondansetron Inj 4 Mg/2 Ml Vial IV PUSH 8 mg Q6H PRN Administration Nausea And Vomiting Phenol 1 spray 04/03/24 22:07 04/03/24 23:37 Phenol/Sod Pheno [place] Strauss (*Bkc) MUCOUS MEM 1 spray PRN PRN Administration Sore Throat Sodium Chloride 20 ml 04/05/24 16:15 04/06/24 04:48 Central Line Flush IV PUSH 20 ml PRN PRN Administration after blood draws Sodium Chloride 10 ml 04/05/24 16:15 Central Line Flush IV PUSH PRN PRN with TPN bag changes Sodium Chloride 10 ml 04/05/24 22:00 04/07/24 06:50 Central Line Flush IV PUSH 10 ml Q8HR SHAKILA Administration Radiology Results: ITS Impressions Abdomen/Pelvis CT 04/02/24 05:56 IMPRESSION: 1. Small bowel obstruction with transition point in right abdomen. Abdomen X-Ray 04/03/24 22:26 IMPRESSION: 1. Nasogastric tube in the stomach. 2. Persistent small bowel obstruction. Small Bowel X-Ray 04/04/24 10:19 IMPRESSION: 1. Dilated small bowel with contrast remaining in the proximal small bowel at 2 hours, consistent with small bowel obstruction. Labs Labs: Laboratory Results - last 24 hr 04/06/24 04/06/24 04/06/24 04:45 12:01 18:12 WBC RBC Hgb Hct MCV MCH MCHC RDW Plt Count MPV Immature Gran % (Auto) Neut % (Auto) Lymph % (Auto) [place] % (Auto) Eos % (Auto) Baso % (Auto) Lymph # (Auto) [place] # (Auto) Eos # (Auto) Baso # (Auto) Abs Immat Gran (auto) Absolute Neuts (auto) Absolute Nucleated RBC Nucleated RBC % PT INR APTT Sodium Potassium Chloride Carbon Dioxide Anion Gap BUN Creatinine Estim Creat Clear Calc Estimated GFR Glucose POC Capillary Glucose 257 H 306 H Calcium Phosphorus Magnesium Transferrin Total Bilirubin Direct Bilirubin AST ALT Alkaline Phosphatase Total Protein Albumin Triglycerides 135 04/06/24 04/06/24 04/07/24 20:25 23:53 06:39 WBC RBC Hgb Hct MCV MCH MCHC RDW Plt Count MPV Immature Gran % (Auto) Neut % (Auto) Lymph % (Auto) [place] % (Auto) Eos % (Auto) Baso % (Auto) Lymph # (Auto) [place] # (Auto) Eos # (Auto) Baso # (Auto) Abs Immat Gran (auto) Absolute Neuts (auto) Absolute Nucleated RBC Nucleated RBC % PT INR APTT Sodium Potassium Chloride Carbon Dioxide Anion Gap BUN Creatinine Estim Creat Clear Calc Estimated GFR Glucose POC Capillary Glucose 283 H 327 H 276 H Calcium Phosphorus Magnesium Transferrin Total Bilirubin Direct Bilirubin AST ALT Alkaline Phosphatase Total Protein Albumin Triglycerides 04/07/24 06:57 WBC 7.6 RBC 2.93 L Hgb 9.0 L Hct 26.8 L MCV 91.5 MCH 30.7 MCHC 33.6 RDW 14.2 Plt Count 106 L MPV 10.4 Immature Gran % (Auto) 1.0 H Neut % (Auto) 75.2 H Lymph % (Auto) 13.7 L [place] % (Auto) 6.8 Eos % (Auto) 3.0 Baso % (Auto) 0.3 Lymph # (Auto) 1.05 [place] # (Auto) 0.5 Eos # (Auto) 0.2 Baso # (Auto) 0.0 Abs Immat Gran (auto) 0.08 H Absolute Neuts (auto) 5.7 Absolute Nucleated RBC 0.000 Nucleated RBC % 0.0 PT 15.9 H INR 1.2 APTT 35.8 Sodium 137 Potassium 3.0 L Chloride 107 Carbon Dioxide 26 Anion Gap 4 BUN 22 H Creatinine 0.60 L Estim Creat Clear Calc 63 Estimated GFR > 60 Glucose 265 H POC Capillary Glucose Calcium 7.2 L Phosphorus 1.5 L Magnesium 1.7 Transferrin 132 L Total Bilirubin 0.6 Direct Bilirubin 0.0 AST 16 ALT 15 Alkaline Phosphatase 50 Total Protein 5.0 L Albumin 2.4 L Triglycerides
[2024-04-07] MEDS: CALCIUM GLUC 1,000 MG/NS 50 ML 1,000 MG/50 ML BAG 100 MG IVPB (09:45)
[2024-04-07] MEDS: POTASSIUM PHOS,M-BASIC-D-BASIC 20 MMOL in SODIUM CHLORIDE 0.9% IV 250 ML 64.17 MMOL IVPB (09:54)
[2024-04-07] MEDS: ENOXAPARIN 40 MG/0.4 ML SYRINGE SUB-Q (10:04)
[2024-04-07] MEDS: ALBUMIN HUMAN 25% 25 GM/100 ML 100 ML IVPB (10:27)
--- NOTE | 2024-04-07 10:47 | PM.PNGS ---
Progress Note: A&P Assessment and Plan (1) Complete obstruction of small intestine: Code(s): K56.601 - Complete intestinal obstruction, unspecified as to cause Status: Acute Assessment and Plan: Await return of bowel function. Will stimulate with MiraLax today. Give another dose of Relistor as well. 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 Using button more appropriately now. Continue prn Dilaudid IV push. (3) Diabetes mellitus: Code(s): E11.9 - Type 2 diabetes mellitus without complications Status: Acute (4) Thrombocytopenia: Code(s): D69.6 - Thrombocytopenia, unspecified Status: Acute Assessment and Plan: Continue to monitor. Hold Lovenox if falls below 100K. Plan Surgical findings discussed with patient and family. Enterotomies requiring small bowel resection and repair of serosal tears discussed. Expecting prolonged ileus. Also discussed that intraabdominal infections or delayed bowel perforation or anastomotic leak are concerns in the early postop period. Subjective Subjective Date/Time Seen: 04/07/24 10:47 Interval history: A little more awake today and pain better controlled. No flatus or BM. Exam GI: Inspection: non-distended GI Palp: Yes Soft to palpation and Yes Tenderness to palpation present (GI) (slightly more on RLQ) Auscultation: Hypoactive bowel sounds present Other: One staple came apart from one side of incision. Small hematoma visible at skin opening but no active bleeding. Objective Data Vital Signs Vital Signs: Vital Signs - 24 hr 04/06/24 11:27 04/06/24 12:22 04/06/24 13:27 Temperature 98.0 F Pulse Rate 112 H Respiratory Rate 16 20 14 Blood Pressure 160/68 H Pulse Oximetry 95 95 96 Oxygen Delivery Oxygen Flow Rate Fraction of Inspired Oxygen 04/06/24 14:17 04/06/24 15:18 04/06/24 15:51 Temperature 99.3 F Pulse Rate 114 H 116 H Respiratory Rate 14 14 18 Blood Pressure 176/76 H Pulse Oximetry 96 96 96 Oxygen Delivery Nasal Cannula Oxygen Flow Rate 2 Fraction of Inspired Oxygen 04/06/24 17:45 04/06/24 20:19 04/07/24 00:16 Temperature 98.0 F 98.3 F Pulse Rate 118 H 120 H Respiratory Rate 14 24 H 22 H Blood Pressure 144/79 H 148/66 H Pulse Oximetry 96 94 97 Oxygen Delivery Oxygen Flow Rate Fraction of Inspired Oxygen 04/07/24 01:59 04/06/24 20:00 04/07/24 05:03 Temperature 98.6 F Pulse Rate 93 Respiratory Rate 12 20 Blood Pressure 145/78 H Pulse Oximetry 93 92 97 Oxygen Delivery Nasal Cannula Oxygen Flow Rate 2 Fraction of Inspired Oxygen 04/06/24 23:00 04/07/24 08:21 04/07/24 07:35 Temperature Pulse Rate Respiratory Rate 16 Blood Pressure Pulse Oximetry 97 94 Oxygen Delivery Nasal Cannula Nasal Cannula Oxygen Flow Rate 2 2 Fraction of Inspired Oxygen 04/07/24 08:45 04/07/24 08:30 04/07/24 10:04 Temperature 98 F Pulse Rate 103 H 94 92 Respiratory Rate 18 18 16 Blood Pressure 165/71 H Pulse Oximetry 95 94 97 Oxygen Delivery Nasal Cannula Nasal Cannula Oxygen Flow Rate 2 2 Fraction of Inspired Oxygen 04/07/24 09:30 Temperature Pulse Rate Respiratory Rate 17 Blood Pressure Pulse Oximetry 97 Oxygen Delivery Oxygen Flow Rate Fraction of Inspired Oxygen Intake/Output Intake/Output: Intake & Output 04/04/24 04/05/24 04/06/24 04/07/24 23:59 23:59 23:59 23:59 Intake Total 1957.5 1307.6 2675.8 100 Output Total 4312 895 4215 2800 Balance 493.5 907.6 300.8 -2700 Meds/Results Medications: Active Medications Generic Name Dose Route Start Last Admin Trade Name Freq PRN Reason Stop Dose Admin Dextrose 12.5 gm 04/05/24 13:22 Dextrose 50% 25 Gm/50 Ml Syringe IV PUSH PRN PRN Hypoglycemia Protocol Diphenhydramine HCl 25 mg 04/05/24 13:05 04/06/24 17:32 Diphenhydramine Hcl Inj 50 Mg/Ml Vial IV PUSH 25 mg Q4H PRN Administration Itching Enoxaparin Sodium 40 mg 04/05/24 09:00 04/07/24 10:04 Enoxaparin 40 Mg/0.4 Ml Syringe SUB-Q 40 mg DAILY SHAKILA Administration Glucagon 1 mg 04/05/24 13:22 Glucagon For Inj 1 Mg Vial IM PRN PRN Hypoglycemia Protocol Glucose 15 gm 04/05/24 13:22 Glucose Oral Gel 15 Gm Of Glucse In 37.5 Gm Tube PO PRN PRN Hypoglycemia Protocol Hydromorphone HCl 1 mg 04/04/24 21:53 04/06/24 20:59 Hydromorphone Hcl Inj (*Crx) 1 Mg/Ml Syr IV PUSH 1 mg Q2H PRN Administration Breakthrough Pain Rated 7-10 or NPO Hydromorphone HCl 0.5 mg 04/04/24 21:53 04/05/24 06:31 Hydromorphone Hcl Inj (*Crx) 1 Mg/Ml Syr IV PUSH 0.5 mg Q2H PRN Administration Breakthrough Pain Rated 4-6 or NPO Ibuprofen 800 mg in 200 mls @ 400 mls/hr 04/04/24 21:53 04/05/24 11:01 Caldolor 800 Mg/200 Ml IVPB Infused Q6H PRN Infusion Breakthrough Pain Rated 1-3 or NPO Morphine Sulfate 30 mg in 30 mls @ 1 mls/hr 04/05/24 13:12 04/07/24 09:30 Morphine Sulfate [place] [employer] IV CONT 1 mg/hr PRN PRN 1 mls/hr ENRICHMENT TEACHER Management Titration Protocol 1 MG/HR Dextrose 1,000 mls @ 100 mls/hr 04/05/24 13:22 Dextrose 5% 1,000 Ml IVPB PRN PRN Hypoglycemia Protocol Dextrose 1,000 mls @ 50 mls/hr 04/05/24 15:13 Dextrose 10% IV CONT .Q20H PRN if PN is interrupted Multivitamins 2.5 ml/ 2,005 mls @ 50 mls/hr 04/05/24 16:00 04/06/24 15:00 Multivitamins 2.5 ml/ Amino IV CONT 50 mls/hr Acids/Electrolytes/Dextrose .Q24H SHAKILA Administration Protocol Fat Emulsion Intravenous 250 mls @ 20.833 mls/hr 04/05/24 16:00 04/06/24 15:10 Lipids 20% IVPB 20 mls/hr Q24H SHAKILA Administration Potassium Chloride 40 meq/ 520 mls @ 130 mls/hr 04/07/24 13:00 Sodium Chloride IVPB 04/07/24 16:59 ONCE ONE Potassium Phosphate 20 mmol/ 256.6667 mls @ 64.167 mls/hr 04/07/24 09:00 04/07/24 09:54 Sodium Chloride IVPB 04/07/24 12:59 64.17 mls/hr ONCE ONE Administration Insulin Aspart 2 - 5 units 04/05/24 18:00 04/07/24 06:50 Insulin Aspart (*Bkc) 100 Units/Ml SUB-Q 3 units Q6HR [facility] Administration Protocol Insulin Glargine 25 units 04/07/24 21:00 Insulin Glargine (*Bkc) 100 Units/Ml SUB-Q HS [facility]1983 Methylnaltrexone [place] 12 mg 04/07/24 11:00 Methylnaltrexone 12 Mg/0.6 Ml Vial SUB-Q 04/07/24 11:01 ONCE ONE Naloxone HCl 0.1 mg 04/04/24 21:53 Naloxone Hcl 0.4 Mg/Ml Vial IV PUSH Q2M PRN Opiate Reversal Ondansetron HCl 8 mg 04/03/24 10:15 04/04/24 22:34 Ondansetron Inj 4 Mg/2 Ml Vial IV PUSH 8 mg Q6H PRN Administration Nausea And Vomiting Phenol 1 spray 04/03/24 22:07 04/03/24 23:37 Phenol/Sod Pheno [employer] (*Bkc) MUCOUS MEM 1 spray PRN PRN Administration Sore Throat Polyethylene Glycol 17 gm 04/07/24 10:45 Polyethylene Glycol 3350 17 Gm Powd.Pack [facility] [place] [place] Sodium Chloride 20 ml 04/05/24 16:15 04/06/24 04:48 Central Line Flush IV PUSH 20 ml PRN PRN Administration after blood draws Sodium Chloride 10 ml 04/05/24 16:15 Central Line Flush IV PUSH PRN PRN with TPN bag changes Sodium Chloride 10 ml 04/05/24 22:00 04/07/24 06:50 Central Line Flush IV PUSH 10 ml Q8HR SHAKILA Administration Radiology Results: ITS Impressions Abdomen/Pelvis CT 04/02/24 05:56 IMPRESSION: 1. Small bowel obstruction with transition point in right abdomen. Abdomen X-Ray 04/03/24 22:26 IMPRESSION: 1. Nasogastric tube in the stomach. 2. Persistent small bowel obstruction. Small Bowel X-Ray 04/04/24 10:19 IMPRESSION: 1. Dilated small bowel with contrast remaining in the proximal small bowel at 2 hours, consistent with small bowel obstruction. Labs Labs: Laboratory Results - last 24 hr 04/06/24 04/06/24 04/06/24 04:45 12:01 18:12 WBC RBC Hgb Hct MCV MCH MCHC RDW Plt Count MPV Immature Gran % (Auto) Neut % (Auto) Lymph % (Auto) [place] % (Auto) Eos % (Auto) Baso % (Auto) Lymph # (Auto) [place] # (Auto) Eos # (Auto) Baso # (Auto) Abs Immat Gran (auto) Absolute Neuts (auto) Absolute Nucleated RBC Nucleated RBC % PT INR APTT Sodium Potassium Chloride Carbon Dioxide Anion Gap BUN Creatinine Estim Creat Clear Calc Estimated GFR Glucose POC Capillary Glucose 257 H 306 H Calcium Phosphorus Magnesium Transferrin Total Bilirubin Direct Bilirubin AST ALT Alkaline Phosphatase Total Protein Albumin Triglycerides 135 04/06/24 04/06/24 04/07/24 20:25 23:53 06:39 WBC RBC Hgb Hct MCV MCH MCHC RDW Plt Count MPV Immature Gran % (Auto) Neut % (Auto) Lymph % (Auto) [place] % (Auto) Eos % (Auto) Baso % (Auto) Lymph # (Auto) [place] # (Auto) Eos # (Auto) Baso # (Auto) Abs Immat Gran (auto) Absolute Neuts (auto) Absolute Nucleated RBC Nucleated RBC % PT INR APTT Sodium Potassium Chloride Carbon Dioxide Anion Gap BUN Creatinine Estim Creat Clear Calc Estimated GFR Glucose POC Capillary Glucose 283 H 327 H 276 H Calcium Phosphorus Magnesium Transferrin Total Bilirubin Direct Bilirubin AST ALT Alkaline Phosphatase Total Protein Albumin Triglycerides 04/07/24 06:57 WBC 7.6 RBC 2.93 L Hgb 9.0 L Hct 26.8 L MCV 91.5 MCH 30.7 MCHC 33.6 RDW 14.2 Plt Count 106 L MPV 10.4 Immature Gran % (Auto) 1.0 H Neut % (Auto) 75.2 H Lymph % (Auto) 13.7 L [place] % (Auto) 6.8 Eos % (Auto) 3.0 Baso % (Auto) 0.3 Lymph # (Auto) 1.05 [place] # (Auto) 0.5 Eos # (Auto) 0.2 Baso # (Auto) 0.0 Abs Immat Gran (auto) 0.08 H Absolute Neuts (auto) 5.7 Absolute Nucleated RBC 0.000 Nucleated RBC % 0.0 PT 15.9 H INR 1.2 APTT 35.8 Sodium 137 Potassium 3.0 L Chloride 107 Carbon Dioxide 26 Anion Gap 4 BUN 22 H Creatinine 0.60 L Estim Creat Clear Calc 63 Estimated GFR > 60 Glucose 265 H POC Capillary Glucose Calcium 7.2 L Phosphorus 1.5 L Magnesium 1.7 Transferrin 132 L Total Bilirubin 0.6 Direct Bilirubin 0.0 AST 16 ALT 15 Alkaline Phosphatase 50 Total Protein 5.0 L Albumin 2.4 L Triglycerides
[2024-04-07] MEDS: polyethylene glycoL 3350 17 GM POWD.PACK FEED TUBE (11:10)
[2024-04-07] MEDS: METHYLNALTREXONE 12 MG/0.6 ML VIAL SUB-Q (11:15)
[2024-04-07 11:46] LABS: Glucose Point of Care 247 mg/dl (65-105)
[2024-04-07] MEDS: ONDANSETRON INJ 4 MG/2 ML VIAL 8 MG IV PUSH (12:27)
--- NOTE | 2024-04-07 13:01 | PCPTNOTE ---
Patient refused treatment this session due to patient having headache and not feeling well.
[2024-04-07] MEDS: POTASSIUM CHLORIDE INJ 40 MEQ in SODIUM CHLORIDE 0.9% IV 500 ML 130 MEQ IVPB (13:56)
[2024-04-07 14:02] LABS: Iron < 10 ug/dL (37-170)
[2024-04-07 14:08] LABS: Magnesium 1.6 mg/dL (1.6-2.3)
--- NOTE | 2024-04-07 14:37 | PCPTNOTE ---
Patient refused treatment this session due to patient not feeling well.
[2024-04-07] MEDS: AMINO ACIDS 5%/D15W/E-LYTES/CA 2,000 ML with MULTIVITAMINS-12 INJ VIAL 1 2.5 ML, MULTIV... 50 ML IV CONT (15:22)
[2024-04-07] MEDS: FAT EMULSIONS IV 20% 250 ML 20 ML IVPB (15:24)
--- NOTE | 2024-04-07 15:35 | ECG_ITS ---
Test Date: 2024-04-07 16:09:15 Measurements Intervals [place] Rate: 92 P: 26 SD: 135 QRS: -21 QRSD: 76 T: 32 QT: 376 QTc: 465 Interpretive Statements SINUS RHYTHM POSSIBLE ANTERIOR MYOCARDIAL INFARCTION , PROBABLY OLD [30 ms Q WAVE IN V3/V4, OR R < 0.2 mV IN V4] No previous ECG available for comparison Electronically Signed On 04-08-2024 09:38:27 CDT by Linda Campos M.D.
[2024-04-07 16:54] LABS: Glucose Point of Care 255 mg/dl (65-105)
[2024-04-07 18:06] LABS: Glucose Point of Care 266 mg/dl (65-105)
[2024-04-07] MEDS: MORPHINE SULFATE PCA (*CRX) 30 MG/30 ML SYR IV CONT (19:06)
[2024-04-07] MEDS: HYDROmorphone HCL INJ (*CRX) 1 MG/ML SYR IV PUSH (19:59)
[2024-04-07] MEDS: diphenhydrAMINE HCl INJ 50 MG/ML VIAL 25 MG IV PUSH (20:02)
[2024-04-07 23:54] LABS: Glucose Point of Care 247 mg/dl (65-105)
[2024-04-08] VITALS (15 sets, daily range): BP systolic 154–172; BP diastolic 59–94; PULSE 72–112; RESP 12–20; TEMP 36.3–36.8; O2SAT 93–96
[2024-04-08] MEDS: INSULIN ASPART (*BKC) 100 UNITS/ML SUB-Q ×4 (00:15→18:29)
[2024-04-08] MEDS: INSULIN GLARGINE (*BKC) 100 UNITS/ML 25 UNITS SUB-Q (00:16)
[2024-04-08] MEDS: HYDROmorphone HCL INJ (*CRX) 1 MG/ML SYR IV PUSH ×2 (05:59→12:09)
[2024-04-08] MEDS: CENTRAL LINE FLUSH 10 ML IV PUSH (06:03)
[2024-04-08 06:38] LABS: Iron 20 ug/dL (37-170)
[2024-04-08 06:40] LABS: Anion Gap 8 mmol/L (4-12); Blood Urea Nitrogen 22 mg/dL (7-17); Carbon Dioxide 28 mmol/L (22-30); Chloride 101 mmol/L (98-107); Estimated CRCL calculation 63 ml/min; Estimated Glomerular Filt Rate > 60; Glucose 238 mg/dL (65-110); Magnesium 1.6 mg/dL (1.6-2.3); Phosphorus 1.9 mg/dL (2.5-4.5); Sodium 137 mmol/L (137-145)
[2024-04-08 06:44] LABS: Triglycerides 139 mg/dL (<150)
[2024-04-08 06:48] LABS: Percent Iron Saturation 10 % (20-50)
[2024-04-08] MEDS: IRON SUCROSE COMPLEX 400 MG, IRON SUCROSE COMPLEX 100 MG in SODIUM CHLORIDE 0.9% IV 250 ML 78.57 MG IVPB (09:25)
[2024-04-08] MEDS: polyethylene glycoL 3350 17 GM POWD.PACK FEED TUBE (09:26)
[2024-04-08] MEDS: ENOXAPARIN 40 MG/0.4 ML SYRINGE SUB-Q (09:26)
--- NOTE | 2024-04-08 09:49 | PCNFU ---
Nutrition Follow-Up Complete: Inadequate oral intake related to altered GI function as evidenced by need for parenteral nutrition Goal:Meet estimated needs Pt progressing towards goal with TPN at this time. Continue with goal Pt current nutrition is . Nutrition recommendation: Last recorded weight is 64.5 kg. Bowel Motility: Last BM 04/03 - awaiting BM and flatus, none as of yet Labs Reviewed: K:3.0, BUN:22, Cr:0.6, Glu:238 Meds Noted: lovenox, insulin, iron, miralax Skin: no skin issues noted Additional Notes: Pt on TPN Clinmix E 10/23 with lipids @ 50 ml/h providing 1350 kcal (~75% EER), 60 g protein (~ 92% estimated protein needs), 1450 ml total volume. Agree with orders. Monitoring diet orders, GI function, stool patterns, weights, labs, plan of care Follow up Sunday and Sunday
[2024-04-08 09:51] LABS: Hematocrit 28.4 % (37.0-47.0); Hemoglobin 9.5 g/dL (12.0-15.0); Mean Corpuscular HGB Conc 33.5 g/dl (32-36); Mean Corpuscular Hemoglobin 30.3 pg (26-34); Mean Corpuscular Volume 90.4 fl (80-100); Mean Platelet Volume 10.7 fl (7.4-10.4); Platelet Count Result 144 k/mm3 (150-375); Red Blood Count 3.14 M/mm3 (4.2-5.4); Red Cell Distribution Width 13.7 % (11.5-14.5); White Blood Count 6.8 K/mm3 (4.5-10.0)
--- NOTE | 2024-04-08 11:05 | PCOTNOTE ---
Attempted to see Patient for A.M. OT treatment session. Patient refused, stated she is not feeling well, needs to have a bowel movement and feels sick to her stomach. Patient refuses all activity at this time.
[2024-04-08 11:59] LABS: Glucose Point of Care 279 mg/dl (65-105)
--- NOTE | 2024-04-08 13:33 | P.PNIM_ITS ---
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 Gen surgery following Acute blood loss anemia Likely resulting from surgical procedure Hemoglobin 9.5, hemoglobin 13.3 upon arrival Isat 10 IV iron 500/1000 monitor H and H Electrolyte abnormality Hypokalemia potassium 3.0 Hypocalcemia Ca 8.0 today Hypophosphatemia 1.9 Hypoalbuminemia 2.4 Hypomagnesemia Mg 1.6 Hypoalbuminemia Albumin 2.4 today, upon arrival in 4.4 Provide albumin 25 g IV once Diabetes mellitus: Code(s): E11.9 - Type 2 diabetes mellitus without complications Status: Acute Assessment and Plan: 04/05 FBS 332, current has D5 in IV but plan is for PICC line for TPN 04/05 Basal glargine 15 U and low dose q 6h corrective regimen 04/06AM Blood sugar 249, TPN running, Basal glargine increased to 20 U Glucose is not uncontrolled and target increase Lantus to 25 unit, continue insulin sliding scale q.6 hour 04/07 Essential hypertension: Code(s): I10 - Essential (primary) hypertension Status: Acute Assessment and Plan: 04/05 137/58 DVT prophylaxis on Lovenox Subjective Date/time seen: 04/08/24 13:33 Interval history: Patient comfortable at bedside still has not passed flatus on pain pump Review of Systems Review of Systems: All systems are reviewed and are negative unless stated otherwise in the HPI. All systems reviewed & are unremarkable except as noted in HPI and below ROS unobtainable: Yes unobtainable due to medical condition Exam Narrative: GENERAL: Ill-appearing in no acute distress. Well-nourished. - EYES: EOMI. Anicteric. - HENT: Moist mucous membranes. - LUNGS: Clear to auscultation bilateral ly, no wheezing, rhonchi, or rales. - CARDIOVASCULAR: Regular rate and rhyth m. No murmur. No JVD. - ABDOMEN: Soft, mild diffuse tender and non-distended. No palpable masses. Surgical wound is dry and clean, hypoactive bowel sounds - EXTREMITIES: No edema. Peripheral puls es 2+. Non-tender. - NEUROLOGIC: No focal neurological defi cits. CN II-XII grossly intact. General weakness, - PSYCHIATRIC: Awake, Alert and oriented x 3. Appropriate mood and affect. - SKIN: No rashes or lesions. Warm. - LYMPH: No cervical lymphadenopathy. Const: General: no acute distress, uncomfortable (Due to abdominal pain) and average body habitus Nutritional Appearance: average body habitus Orientation/consciousness: patient oriented x3 HENMT: Head: normocephalic and atraumatic Ears: hearing grossly normal bilaterally Mouth: Yes moist mucous membranes Eyes: General: appearance normal, both eyes and all related structures Pupils: Equal, round and reactive pupils present Neck: Neck: normal visual inspection and full ROM Resp: Effort & Inspection: no respiratory distress Auscultation: clear to auscultation bilaterally Cardio: Rate: regular rate Rhythm: regular rhythm Heart sounds: S1 normal heart sound present and S2 normal heart sound present Peripheral pulses: Peripheral pulses 2+ throughout GI: Inspection: distended, scar (3 vertical scars from the midline to the right mid abdomen) and no visible herniation Auscultation: Hypoactive bowel sounds present Skin: General skin exam: normal color Neuro: General: patient oriented x3, moves all extremities and no focal motor deficits Cranial nerves: Yes Equal, round and reactive pupils present Speech: normal speech Motor exam (neuro): 5/5 motor strength present throughout Extrem: General: normal to inspection and no edema Psych: Mental Status: mental status grossly normal Attitude: cooperative Insight: Good insight present (Psych) Judgement: Good judgement present (Psych) Objective Data Vital Signs Vital Signs: Vital Signs - 24 hr 04/07/24 14:36 04/07/24 16:05 04/07/24 15:30 Temperature 97.2 F L 98 F Pulse Rate 85 90 Respiratory Rate 22 H 18 19 Blood Pressure 171/72 H 170/70 H Pulse Oximetry 98 98 97 Oxygen Delivery Oxygen Flow Rate 2 04/07/24 17:25 04/07/24 18:34 04/07/24 19:06 Temperature 97.1 F L Pulse Rate 86 Respiratory Rate 15 14 14 Blood Pressure 152/80 H Pulse Oximetry 98 98 97 Oxygen Delivery Oxygen Flow Rate 04/07/24 20:28 04/07/24 20:43 04/07/24 23:52 Temperature 98.3 F 97.6 F Pulse Rate 92 97 98 Respiratory Rate 17 16 18 Blood Pressure 178/83 H 176/80 H Pulse Oximetry 95 98 97 Oxygen Delivery Nasal Cannula Oxygen Flow Rate 2 04/07/24 20:00 04/08/24 00:05 04/08/24 03:58 Temperature Pulse Rate Respiratory Rate 16 16 Blood Pressure Pulse Oximetry 94 94 95 Oxygen Delivery Nasal Cannula Oxygen Flow Rate 1.5 04/08/24 04:49 04/08/24 08:01 04/08/24 08:56 Temperature 98.2 F 97.6 F Pulse Rate 102 H 72 Respiratory Rate 20 12 Blood Pressure 169/84 H 172/59 H Pulse Oximetry 96 96 96 Oxygen Delivery Nasal Cannula Oxygen Flow Rate 2 04/08/24 11:38 Temperature Pulse Rate Respiratory Rate Blood Pressure Pulse Oximetry 96 Oxygen Delivery Nasal Cannula Oxygen Flow Rate 1 Intake/Output Intake/Output: Intake & Output 04/05/24 04/06/24 04/07/24 04/08/24 23:59 23:59 23:59 23:59 Intake Total 1307.6 2675.8 3494.9667 250 Output Total 400 2375 4200 1900 Balance 907.6 300.8 -705.0333 -1650 Meds/Results Medications: Active Medications Generic Name Dose Route Start Last Admin Trade Name Freq PRN Reason Stop Dose Admin Dextrose 12.5 gm 04/05/24 13:22 Dextrose 50% 25 Gm/50 Ml Syringe IV PUSH PRN PRN Hypoglycemia Protocol Diphenhydramine HCl 25 mg 04/05/24 13:05 04/07/24 20:02 Diphenhydramine Hcl Inj 50 Mg/Ml Vial IV PUSH 25 mg Q4H PRN Administration Itching Enoxaparin Sodium 40 mg 04/05/24 09:00 04/08/24 09:26 Enoxaparin 40 Mg/0.4 Ml Syringe SUB-Q 40 mg DAILY SHAKILA Administration Glucagon 1 mg 04/05/24 13:22 Glucagon For Inj 1 Mg Vial IM PRN PRN Hypoglycemia Protocol Glucose 15 gm 04/05/24 13:22 Glucose Oral Gel 15 Gm Of Glucse In 37.5 Gm Tube PO PRN PRN Hypoglycemia Protocol Hydromorphone HCl 1 mg 04/04/24 21:53 04/08/24 12:09 Hydromorphone Hcl Inj (*Crx) 1 Mg/Ml Syr IV PUSH 1 mg Q2H PRN Administration Breakthrough Pain Rated 7-10 or NPO Hydromorphone HCl 0.5 mg 04/04/24 21:53 04/05/24 06:31 Hydromorphone Hcl Inj (*Crx) 1 Mg/Ml Syr IV PUSH 0.5 mg Q2H PRN Administration Breakthrough Pain Rated 4-6 or NPO Ibuprofen 800 mg in 200 mls @ 400 mls/hr 04/04/24 21:53 04/05/24 11:01 Caldolor 800 Mg/200 Ml IVPB Infused Q6H PRN Infusion Breakthrough Pain Rated 1-3 or NPO Morphine Sulfate 30 mg in 30 mls @ 1 mls/hr 04/05/24 13:12 04/08/24 03:58 Morphine Sulfate Manager [place] IV CONT 1 mg/hr PRN PRN 1 mls/hr TERRITORY SERVICE REPRESENTATIVE Management Titration Protocol 1 MG/HR Dextrose 1,000 mls @ 100 mls/hr 04/05/24 13:22 Dextrose 5% 1,000 Ml IVPB PRN PRN Hypoglycemia Protocol Dextrose 1,000 mls @ 50 mls/hr 04/05/24 15:13 Dextrose 10% IV CONT .Q20H PRN if PN is interrupted Multivitamins 2.5 ml/ 2,005 mls @ 50 mls/hr 04/05/24 16:00 04/07/24 15:22 Multivitamins 2.5 ml/ Amino IV CONT 50 mls/hr Acids/Electrolytes/Dextrose .Q24H SHAKILA Administration Protocol Fat Emulsion Intravenous 250 mls @ 20.833 mls/hr 04/05/24 16:00 04/08/24 03:40 Lipids 20% IVPB Infused Q24H SHAKILA Infusion Potassium Phosphate 20 mmol/ 256.6667 mls @ 64.167 mls/hr 04/08/24 13:26 Sodium Chloride IVPB 04/08/24 17:25 ONCE ONE Insulin Aspart 2 - 5 units 04/05/24 18:00 04/08/24 12:09 Insulin Aspart (*Bkc) 100 Units/Ml SUB-Q 3 units Q6HR [facility] Administration Protocol Insulin Glargine 25 units 04/07/24 21:00 04/08/24 00:16 Insulin Glargine (*Bkc) 100 Units/Ml SUB-Q 25 units HS SHAKILA Administration Naloxone HCl 0.1 mg 04/04/24 21:53 Naloxone Hcl 0.4 Mg/Ml Vial IV PUSH Q2M PRN Opiate Reversal Ondansetron HCl 8 mg 04/03/24 10:15 04/07/24 12:27 Ondansetron Inj 4 Mg/2 Ml Vial IV PUSH 8 mg Q6H PRN Administration Nausea And Vomiting Phenol 1 spray 04/03/24 22:07 04/03/24 23:37 Phenol/Sod Pheno [place] [employer] (*Bkc) MUCOUS MEM 1 spray PRN PRN Administration Sore Throat Polyethylene Glycol 17 gm 04/07/24 10:45 04/08/24 09:26 Polyethylene Glycol 3350 17 Gm Powd.Pack FEED TUBE 17 gm QAM SHAKILA Administration Sodium Chloride 20 ml 04/05/24 16:15 04/06/24 04:48 Central Line Flush IV PUSH 20 ml PRN PRN Administration after blood draws Sodium Chloride 10 ml 04/05/24 16:15 Central Line Flush IV PUSH PRN PRN with TPN bag changes Sodium Chloride 10 ml 04/05/24 22:00 04/08/24 12:10 Central Line Flush IV PUSH Not Given Q8HR [facility] Radiology Results: ITS Impressions Abdomen/Pelvis CT 04/02/24 05:56 IMPRESSION: 1. Small bowel obstruction with transition point in right abdomen. Abdomen X-Ray 04/03/24 22:26 IMPRESSION: 1. Nasogastric tube in the stomach. 2. Persistent small bowel obstruction. Small Bowel X-Ray 04/04/24 10:19 IMPRESSION: 1. Dilated small bowel with contrast remaining in the proximal small bowel at 2 hours, consistent with small bowel obstruction. Labs Labs: Laboratory Results - last 24 hr 04/07/24 04/07/24 04/07/24 09:39 16:47 18:03 WBC RBC Hgb Hct MCV MCH MCHC RDW Plt Count MPV Sodium Potassium Chloride Carbon Dioxide Anion Gap BUN Creatinine Estim Creat Clear Calc Estimated GFR Glucose POC Capillary Glucose 255 H 266 H Calcium Phosphorus Magnesium 1.6 Iron < 10 L TIBC 206 L % Saturation 5 L Triglycerides 04/07/24 04/08/24 04/08/24 23:38 05:56 05:57 WBC RBC Hgb Hct MCV MCH MCHC RDW Plt Count MPV Sodium 137 Potassium 3.0 L Chloride 101 Carbon Dioxide 28 Anion Gap 8 BUN 22 H Creatinine 0.60 L Estim Creat Clear Calc 63 Estimated GFR > 60 Glucose 238 H POC Capillary Glucose 247 H Calcium 8.0 L Phosphorus 1.9 L Magnesium 1.6 Iron 20 L TIBC 209 L % Saturation 10 L Triglycerides 139 04/08/24 04/08/24 09:27 11:55 WBC 6.8 RBC 3.14 L Hgb 9.5 L Hct 28.4 L MCV 90.4 MCH 30.3 MCHC 33.5 RDW 13.7 Plt Count 144 L MPV 10.7 H Sodium Potassium Chloride Carbon Dioxide Anion Gap BUN Creatinine Estim Creat Clear Calc Estimated GFR Glucose POC Capillary Glucose 279 H Calcium Phosphorus Magnesium Iron TIBC % Saturation Triglycerides
--- NOTE | 2024-04-08 13:36 | PCPTNOTE ---
Patient refused treatment this session stating she did not feel well and c/o abdominal pain. Patient's present and encouraging patient to participate, however patient continued to refuse.
--- NOTE | 2024-04-08 14:00 | PC.NURSE ---
On 04/08/24, the student, [Yevgeniy Jensen], provided care and completed [facility] documentation on this patient. I have reviewed the student's documentation and agree with the findings.
[2024-04-08 14:06] LABS: Percent Iron Saturation < 5 % (20-50)
--- NOTE | 2024-04-08 14:30 | PCOTNOTE ---
Attempted to see for P.M. session. Patient refused, stated, I'm not ready for therapy, I'm to sick and feeling bad . Therapist educated Patient on the importance of movement and participation for increased strengthening. Patient states she will try tomorrow if she as a bowel movement.
[2024-04-08] MEDS: POTASSIUM PHOS,M-BASIC-D-BASIC 20 MMOL in SODIUM CHLORIDE 0.9% IV 250 ML 64.17 MMOL IVPB (14:31)
[2024-04-08] MEDS: FAT EMULSIONS IV 20% 250 ML 20 ML IVPB (16:53)
[2024-04-08] MEDS: AMINO ACIDS 5%/D15W/E-LYTES/CA 2,000 ML with MULTIVITAMINS-12 INJ VIAL 1 2.5 ML, MULTIV... 50 ML IV CONT (16:53)
--- NOTE | 2024-04-08 17:00 | P.PNGS_ITS ---
Progress Note: A&P Assessment and Plan (1) Complete obstruction of small intestine: Code(s): K56.601 - Complete intestinal obstruction, unspecified as to cause Status: Acute Assessment and Plan: * Await return of bowel function. Continue MiraLax. * PT/OT ordered, patient refusing d/t pain but agreed this afternoon to try working with them tomorrow * TPN running, monitor electrolytes (2) Chronic, continuous use of opioids: Code(s): F11.90 - Opioid use, unspecified, uncomplicated Status: Acute Assessment and Plan: * Continue Morphine MANAGER DRILLING with basal rate. Using this more for her chronic trigeminal neuralgia pain, less abdominal pain today. * Continue prn Dilaudid IV push. (3) Diabetes mellitus: Code(s): E11.9 - Type 2 diabetes mellitus without complications Status: Acute (4) Thrombocytopenia: Code(s): D69.6 - Thrombocytopenia, unspecified Status: Acute Assessment and Plan: * Continue to monitor. Hold Lovenox if falls below 100K. Plan I have discussed the patient's case and plan of care with Dr. Friend. Subjective Subjective Date/Time Seen: 04/08/24 17:00 Patient reports: no flatus, no bowel movement and afebrile Interval history: Patient is complaining of head pain c/w with her trigeminal neuralgia chronic pain. No flatus or BM. She has not gotten out of bed since surgery due to her pain. She was having more abdominal pain through the weekend, but today reports it is all her head pain and she isn't having much in terms of abdominal pain. Exam Const: General: comfortable and no acute distress Orientation/consciousness: patient oriented x3 GI: Inspection: non-distended and incision (dry and jesse intact other than a small infraumbilical separation of skin) GI Palp: Yes Soft to palpation and Yes Tenderness to palpation present (GI) Auscultation: Hypoactive bowel sounds present Urinary Catheter: Urinary Catheter: patent and draining and urine clear Objective Data Vital Signs Vital Signs: Vital Signs - 24 hr 04/07/24 17:25 04/07/24 18:34 04/07/24 19:06 Temperature 97.1 F L Pulse Rate 86 Respiratory Rate 15 14 14 Blood Pressure 152/80 H Pulse Oximetry 98 98 97 Oxygen Delivery Oxygen Flow Rate 04/07/24 20:28 04/07/24 20:43 04/07/24 23:52 Temperature 98.3 F 97.6 F Pulse Rate 92 97 98 Respiratory Rate 17 16 18 Blood Pressure 178/83 H 176/80 H Pulse Oximetry 95 98 97 Oxygen Delivery Nasal Cannula Oxygen Flow Rate 2 04/07/24 20:00 04/08/24 00:05 04/08/24 03:58 Temperature Pulse Rate Respiratory Rate 16 16 Blood Pressure Pulse Oximetry 94 94 95 Oxygen Delivery Nasal Cannula Oxygen Flow Rate 1.5 04/08/24 04:49 04/08/24 08:01 04/08/24 08:56 Temperature 98.2 F 97.6 F Pulse Rate 102 H 72 Respiratory Rate 20 12 Blood Pressure 169/84 H 172/59 H Pulse Oximetry 96 96 96 Oxygen Delivery Nasal Cannula Oxygen Flow Rate 2 04/08/24 11:38 04/08/24 14:18 04/08/24 07:00 Temperature Pulse Rate 98 Respiratory Rate 12 16 Blood Pressure Pulse Oximetry 96 95 96 Oxygen Delivery Nasal Cannula Nasal Cannula Oxygen Flow Rate 1 2 04/08/24 11:00 04/08/24 14:57 Temperature 97.6 F Pulse Rate 112 H Respiratory Rate 16 14 Blood Pressure 154/94 H Pulse Oximetry 94 95 Oxygen Delivery Oxygen Flow Rate Intake/Output Intake/Output: Intake & Output 04/05/24 04/06/24 04/07/24 04/08/24 23:59 23:59 23:59 23:59 Intake Total 1307.6 2675.8 3494.9667 250 Output Total 400 2375 4200 2900 Balance 907.6 300.8 -705.0333 -1890 Meds/Results Medications: Active Medications Generic Name Dose Route Start Last Admin Trade Name Freq PRN Reason Stop Dose Admin Dextrose 12.5 gm 04/05/24 13:22 Dextrose 50% 25 Gm/50 Ml Syringe IV PUSH PRN PRN Hypoglycemia Protocol Diphenhydramine HCl 25 mg 04/05/24 13:05 04/07/24 20:02 Diphenhydramine Hcl Inj 50 Mg/Ml Vial IV PUSH 25 mg Q4H PRN Administration Itching Enoxaparin Sodium 40 mg 04/05/24 09:00 04/08/24 09:26 Enoxaparin 40 Mg/0.4 Ml Syringe SUB-Q 40 mg DAILY SHAKILA Administration Glucagon 1 mg 04/05/24 13:22 Glucagon For Inj 1 Mg Vial IM PRN PRN Hypoglycemia Protocol Glucose 15 gm 04/05/24 13:22 Glucose Oral Gel 15 Gm Of Glucse In 37.5 Gm Tube PO PRN PRN Hypoglycemia Protocol Hydromorphone HCl 1 mg 04/04/24 21:53 04/08/24 12:09 Hydromorphone Hcl Inj (*Crx) 1 Mg/Ml Syr IV PUSH 1 mg Q2H PRN Administration Breakthrough Pain Rated 7-10 or NPO Hydromorphone HCl 0.5 mg 04/04/24 21:53 04/05/24 06:31 Hydromorphone Hcl Inj (*Crx) 1 Mg/Ml Syr IV PUSH 0.5 mg Q2H PRN Administration Breakthrough Pain Rated 4-6 or NPO Ibuprofen 800 mg in 200 mls @ 400 mls/hr 04/04/24 21:53 04/05/24 11:01 Caldolor 800 Mg/200 Ml IVPB Infused Q6H PRN Infusion Breakthrough Pain Rated 1-3 or NPO Morphine Sulfate 30 mg in 30 mls @ 1 mls/hr 04/05/24 13:12 04/08/24 11:00 Morphine Sulfate Coding Analyst IV CONT 1 mg/hr PRN PRN 1 mls/hr MANAGER DRILLING Management Titration Protocol 1 MG/HR Dextrose 1,000 mls @ 100 mls/hr 04/05/24 13:22 Dextrose 5% 1,000 Ml IVPB PRN PRN Hypoglycemia Protocol Dextrose 1,000 mls @ 50 mls/hr 04/05/24 15:13 Dextrose 10% IV CONT .Q20H PRN if PN is interrupted Multivitamins 2.5 ml/ 2,005 mls @ 50 mls/hr 04/05/24 16:00 04/07/24 15:22 Multivitamins 2.5 ml/ Amino IV CONT 50 mls/hr Acids/Electrolytes/Dextrose .Q24H SHAKILA Administration Protocol Fat Emulsion Intravenous 250 mls @ 20.833 mls/hr 04/05/24 16:00 04/08/24 03:40 Lipids 20% IVPB Infused Q24H SHAKILA Infusion Potassium Phosphate 20 mmol/ 256.6667 mls @ 64.167 mls/hr 04/08/24 13:26 04/08/24 14:31 Sodium Chloride IVPB 04/08/24 17:25 64.17 mls/hr ONCE ONE Administration Insulin Aspart 2 - 5 units 04/05/24 18:00 04/08/24 12:09 Insulin Aspart (*Bkc) 100 Units/Ml SUB-Q 3 units Q6HR [facility] Administration Protocol Insulin Glargine 25 units 04/07/24 21:00 04/08/24 00:16 Insulin Glargine (*Bkc) 100 Units/Ml SUB-Q 25 units HS SHAKILA Administration Naloxone HCl 0.1 mg 04/04/24 21:53 Naloxone Hcl 0.4 Mg/Ml Vial IV PUSH Q2M PRN Opiate Reversal Ondansetron HCl 8 mg 04/03/24 10:15 04/07/24 12:27 Ondansetron Inj 4 Mg/2 Ml Vial IV PUSH 8 mg Q6H PRN Administration Nausea And Vomiting Phenol 1 spray 04/03/24 22:07 04/03/24 23:37 Phenol/Sod Pheno Ostrander Strauss (*Bkc) MUCOUS MEM 1 spray PRN PRN Administration Sore Throat Polyethylene Glycol 17 gm 04/07/24 10:45 04/08/24 09:26 Polyethylene Glycol 3350 17 Gm Powd.Pack FEED TUBE 17 gm QAM [facility] Administration Sodium Chloride 20 ml 04/05/24 16:15 04/06/24 04:48 Central Line Flush IV PUSH 20 ml PRN PRN Administration after blood draws Sodium Chloride 10 ml 04/05/24 16:15 Central Line Flush IV PUSH PRN PRN with TPN bag changes Sodium Chloride 10 ml 04/05/24 22:00 04/08/24 12:10 Central Line Flush IV PUSH Not Given Q8HR [facility] Radiology Results: ITS Impressions Abdomen/Pelvis CT 04/02/24 05:56 IMPRESSION: 1. Small bowel obstruction with transition point in right abdomen. Abdomen X-Ray 04/03/24 22:26 IMPRESSION: 1. Nasogastric tube in the stomach. 2. Persistent small bowel obstruction. Small Bowel X-Ray 04/04/24 10:19 IMPRESSION: 1. Dilated small bowel with contrast remaining in the proximal small bowel at 2 hours, consistent with small bowel obstruction. Labs Labs: Laboratory Results - last 24 hr 04/07/24 04/07/24 04/07/24 09:39 18:03 23:38 WBC RBC Hgb Hct MCV MCH MCHC RDW Plt Count MPV Sodium Potassium Chloride Carbon Dioxide Anion Gap BUN Creatinine Estim Creat Clear Calc Estimated GFR Glucose POC Capillary Glucose 266 H 247 H Calcium Phosphorus Magnesium Iron TIBC % Saturation < 5 L Triglycerides 04/08/24 04/08/24 04/08/24 05:56 05:57 09:27 WBC 6.8 RBC 3.14 L Hgb 9.5 L Hct 28.4 L MCV 90.4 MCH 30.3 MCHC 33.5 RDW 13.7 Plt Count 144 L MPV 10.7 H Sodium 137 Potassium 3.0 L Chloride 101 Carbon Dioxide 28 Anion Gap 8 BUN 22 H Creatinine 0.60 L Estim Creat Clear Calc 63 Estimated GFR > 60 Glucose 238 H POC Capillary Glucose Calcium 8.0 L Phosphorus 1.9 L Magnesium 1.6 Iron 20 L TIBC 209 L % Saturation 10 L Triglycerides 139 04/08/24 11:55 WBC RBC Hgb Hct MCV MCH MCHC RDW Plt Count MPV Sodium Potassium Chloride Carbon Dioxide Anion Gap BUN Creatinine Estim Creat Clear Calc Estimated GFR Glucose POC Capillary Glucose 279 H Calcium Phosphorus Magnesium Iron TIBC % Saturation Triglycerides
[2024-04-08 18:19] LABS: Glucose Point of Care 286 mg/dl (65-105)
[2024-04-08] MEDS: POTASSIUM CHLORIDE INJ 40 MEQ in SODIUM CHLORIDE 0.9% IV 500 ML 130 MEQ IVPB (18:28)
[2024-04-08] MEDS: ONDANSETRON INJ 4 MG/2 ML VIAL 8 MG IV PUSH (21:00)
[2024-04-09] VITALS (11 sets, daily range): BP systolic 110–178; BP diastolic 55–89; PULSE 89–98; RESP 10–18; TEMP 36.1–36.6; O2SAT 93–99
[2024-04-09] MEDS: MORPHINE SULFATE PCA (*CRX) 30 MG/30 ML SYR IV CONT (00:27)
[2024-04-09 00:33] LABS: Glucose Point of Care 262 mg/dl (65-105)
[2024-04-09] MEDS: INSULIN GLARGINE (*BKC) 100 UNITS/ML 25 UNITS SUB-Q ×2 (00:33→20:57)
[2024-04-09] MEDS: INSULIN ASPART (*BKC) 100 UNITS/ML SUB-Q ×5 (00:33→23:12)
[2024-04-09] MEDS: CENTRAL LINE FLUSH 10 ML IV PUSH ×4 (00:33→20:57)
--- NOTE | 2024-04-09 05:00 | PC.NURSE ---
Found NG tube laying on the bed, patient does not recall how it was pulled out, pt is alert and orientated, pain well controlled tonight, ambulated to the bathroom x3.
[2024-04-09 05:23] LABS: Glucose Point of Care 286 mg/dl (65-105)
[2024-04-09 05:42] LABS: Basophils Percent Auto 0.6 % (0.2-1.2); Eosinophils Absolute Auto 0.3 K/mm3 (0-0.3); Eosinophils Percent Auto 5.2 % (0-4.4); Hematocrit 29.2 % (37.0-47.0); Hemoglobin 9.5 g/dL (12.0-15.0); Immature Granulocyte Absolute 0.06 K/mm3 (0.00-0.031); Lymphocytes Absolute Auto 1.26 K/mm3 (0.9-3.2); Lymphocytes Percent Auto 20.4 % (18.3-44.2); Mean Corpuscular HGB Conc 32.5 g/dl (32-36); Mean Corpuscular Hemoglobin 29.8 pg (26-34); Mean Corpuscular Volume 91.5 fl (80-100); Mean Platelet Volume 10.9 fl (7.4-10.4); Monocytes Absolute Auto 0.9 K/mm3 (0.1-0.6); Monocytes Percent Auto 13.8 % (2.6-8.5); Neutrophils Absolute Auto 3.7 K/mm3 (1.3-6.7); Platelet Count Result 182 k/mm3 (150-375); Red Blood Count 3.19 M/mm3 (4.2-5.4); Red Cell Distribution Width 13.3 % (11.5-14.5); White Blood Count 6.2 K/mm3 (4.5-10.0)
[2024-04-09 05:51] LABS: Alanine Aminotransferase 16 U/L (6-35); Alkaline Phosphatase 66 U/L (38-126); Anion Gap 6 mmol/L (4-12); Aspartate Amino Transferase 22 U/L (14-36); Bilirubin,Total 0.7 mg/dL (0.2-1.3); Blood Urea Nitrogen 25 mg/dL (7-17); Calcium 8.1 mg/dL (8.4-10.2); Carbon Dioxide 33 mmol/L (22-30); Chloride 98 mmol/L (98-107); Estimated CRCL calculation 55 ml/min; Estimated Glomerular Filt Rate > 60; Glucose 263 mg/dL (65-110); Magnesium 1.6 mg/dL (1.6-2.3); Phosphorus 2.3 mg/dL (2.5-4.5); Potassium 2.9 mmol/L (3.4-5.0); Sodium 137 mmol/L (137-145)
[2024-04-09] MEDS: polyethylene glycoL 3350 17 GM POWD.PACK FEED TUBE (08:56)
[2024-04-09] MEDS: ENOXAPARIN 40 MG/0.4 ML SYRINGE SUB-Q (08:56)
[2024-04-09] MEDS: KCL 40 MEQ/WATER 100 ML 100 ML 25 ML IVPB (08:57)
[2024-04-09] MEDS: MAGNESIUM SULF 1 GM/D5W 100 ML 1 GM/100 ML BAG IVPB (09:01)
--- NOTE | 2024-04-09 09:02 | PM.PNGS ---
Progress Note: A&P Assessment and Plan (1) Complete obstruction of small intestine: Code(s): K56.601 - Complete intestinal obstruction, unspecified as to cause Status: Acute Assessment and Plan: Monitor with NG out. NPO except Ice chips still. Continue MiraLax. 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 Using this more for her chronic trigeminal neuralgia pain, less abdominal pain today. Continue prn Dilaudid IV push. (3) Diabetes mellitus: Code(s): E11.9 - Type 2 diabetes mellitus without complications Status: Acute (4) Thrombocytopenia: Code(s): D69.6 - Thrombocytopenia, unspecified Status: Acute Assessment and Plan: Improved Subjective Subjective Date/Time Seen: 04/09/24 09:02 Interval history: Patient removed her own NG. Had small BM and passing flatus. No nausea or vomiting. Abdominal pain controlled. Exam GI: Inspection: non-distended and incision (intact with jesse) GI Palp: Yes Soft to palpation, Yes Tenderness to palpation present (GI) (mild) and No Guarding due to palpation present (GI) Auscultation: normal bowel sounds Objective Data Vital Signs Vital Signs: Vital Signs - 24 hr 04/08/24 11:38 04/08/24 14:18 04/08/24 11:00 Temperature Pulse Rate 98 Respiratory Rate 12 16 Blood Pressure Pulse Oximetry 96 95 94 Oxygen Delivery Nasal Cannula Nasal Cannula Oxygen Flow Rate 1 2 04/08/24 14:57 04/08/24 16:52 04/08/24 19:37 Temperature 97.6 F Pulse Rate 112 H 98 Respiratory Rate 14 16 15 Blood Pressure 154/94 H Pulse Oximetry 95 94 94 Oxygen Delivery Nasal Cannula Oxygen Flow Rate 2 04/08/24 20:27 04/08/24 19:00 04/09/24 00:27 Temperature 97.4 F L Pulse Rate 90 Respiratory Rate 12 16 16 Blood Pressure 168/72 H Pulse Oximetry 93 93 94 Oxygen Delivery Oxygen Flow Rate 04/09/24 00:00 04/08/24 20:00 04/09/24 05:25 Temperature 97.6 F 97.8 F Pulse Rate 90 92 Respiratory Rate 14 16 Blood Pressure 110/55 L 165/71 H Pulse Oximetry 95 94 95 Oxygen Delivery Room Air Oxygen Flow Rate 04/09/24 04:25 Temperature Pulse Rate Respiratory Rate 16 Blood Pressure Pulse Oximetry 95 Oxygen Delivery Oxygen Flow Rate Intake/Output Intake/Output: Intake & Output 04/06/24 04/07/24 04/08/24 04/09/24 23:59 23:59 23:59 23:59 Intake Total 2675.8 3494.9667 2577.8 1080 Output Total 3705 4200 4800 1650 Balance 300.8 -705.0333 -2222.2 -570 Meds/Results Medications: Active Medications Generic Name Dose Route Start Last Admin Trade Name Freq PRN Reason Stop Dose Admin Dextrose 12.5 gm 04/05/24 13:22 Dextrose 50% 25 Gm/50 Ml Syringe IV PUSH PRN PRN Hypoglycemia Protocol Diphenhydramine HCl 25 mg 04/05/24 13:05 04/07/24 20:02 Diphenhydramine Hcl Inj 50 Mg/Ml Vial IV PUSH 25 mg Q4H PRN Administration Itching Enoxaparin Sodium 40 mg 04/05/24 09:00 04/09/24 08:56 Enoxaparin 40 Mg/0.4 Ml Syringe SUB-Q 40 mg DAILY SHAKILA Administration Glucagon 1 mg 04/05/24 13:22 Glucagon For Inj 1 Mg Vial IM PRN PRN Hypoglycemia Protocol Glucose 15 gm 04/05/24 13:22 Glucose Oral Gel 15 Gm Of Glucse In 37.5 Gm Tube PO PRN PRN Hypoglycemia Protocol Hydromorphone HCl 1 mg 04/04/24 21:53 04/08/24 12:09 Hydromorphone Hcl Inj (*Crx) 1 Mg/Ml Syr IV PUSH 1 mg Q2H PRN Administration Breakthrough Pain Rated 7-10 or NPO Hydromorphone HCl 0.5 mg 04/04/24 21:53 04/05/24 06:31 Hydromorphone Hcl Inj (*Crx) 1 Mg/Ml Syr IV PUSH 0.5 mg Q2H PRN Administration Breakthrough Pain Rated 4-6 or NPO Ibuprofen 800 mg in 200 mls @ 400 mls/hr 04/04/24 21:53 04/05/24 11:01 Caldolor 800 Mg/200 Ml IVPB Infused Q6H PRN Infusion Breakthrough Pain Rated 1-3 or NPO Morphine Sulfate 30 mg in 30 mls @ 1 mls/hr 04/05/24 13:12 04/09/24 04:25 Morphine Sulfate Tree Girdler IV CONT 1 mg/hr PRN PRN 1 mls/hr WET PROCESS MILLER HEAD Management Titration Protocol 1 MG/HR Dextrose 1,000 mls @ 100 mls/hr 04/05/24 13:22 Dextrose 5% 1,000 Ml IVPB PRN PRN Hypoglycemia Protocol Dextrose 1,000 mls @ 50 mls/hr 04/05/24 15:13 Dextrose 10% IV CONT .Q20H PRN if PN is interrupted Multivitamins 2.5 ml/ 2,005 mls @ 50 mls/hr 04/05/24 16:00 04/08/24 16:53 Multivitamins 2.5 ml/ Amino IV CONT 50 mls/hr Acids/Electrolytes/Dextrose .Q24H SHAKILA Administration Protocol Fat Emulsion Intravenous 250 mls @ 20.833 mls/hr 04/05/24 16:00 04/09/24 05:20 Lipids 20% IVPB Infused Q24H SHAKILA Infusion Potassium Chloride 100 mls @ 25 mls/hr 04/09/24 07:20 Kcl 40 Meq/Water 100 Ml IVPB 04/09/24 11:19 ONCE ONE Potassium Chloride 40 meq/ 520 mls @ 130 mls/hr 04/09/24 07:44 Sodium Chloride IVPB 04/09/24 11:43 ONCE ONE Iron Sucrose 400 mg/ Iron 275 mls @ 78.571 mls/hr 04/09/24 09:00 Sucrose 100 mg/ Sodium IVPB 04/09/24 12:29 Chloride ONCE ONE Magnesium Sulfate/Dextrose 1 gm in 100 mls @ 100 mls/hr 04/09/24 09:00 Magnesium Sulf 1 Gm/D5w 100 Ml IVPB 04/09/24 09:59 ONCE ONE Insulin Aspart 2 - 5 units 04/05/24 18:00 04/09/24 05:50 Insulin Aspart (*Bkc) 100 Units/Ml SUB-Q 3 units Q6HR SH[facility]ILA Administration Protocol Insulin Glargine 25 units 04/07/24 21:00 04/09/24 00:33 Insulin Glargine (*Bkc) 100 Units/Ml SUB-Q 25 units HS SHAKILA Administration Miscellaneous Information 0 each 04/09/24 00:01 Duplicate K Thompson Orders- [address] Different [place] [address] To [address] Brownlee--No Answer At 0750/Td XX 05/09/24 00:00 CLARIFY SHAKILA Naloxone HCl 0.1 mg 04/04/24 21:53 Naloxone Hcl 0.4 Mg/Ml Vial IV PUSH Q2M PRN Opiate Reversal Ondansetron HCl 8 mg 04/03/24 10:15 04/08/24 21:00 Ondansetron Inj 4 Mg/2 Ml Vial IV PUSH 8 mg Q6H PRN Administration Nausea And Vomiting Phenol 1 spray 04/03/24 22:07 04/03/24 23:37 Phenol/Sod Pheno Ramona Strauss (*Bkc) MUCOUS MEM 1 spray PRN PRN Administration Sore Throat Polyethylene Glycol 17 gm 04/07/24 10:45 04/09/24 08:56 Polyethylene Glycol 3350 17 Gm Powd.Pack FEED TUBE 17 gm QAM SHAKILA Administration Sodium Chloride 20 ml 04/05/24 16:15 04/06/24 04:48 Central Line Flush IV PUSH 20 ml PRN PRN Administration after blood draws Sodium Chloride 10 ml 04/05/24 16:15 Central Line Flush IV PUSH PRN PRN with TPN bag changes Sodium Chloride 10 ml 04/05/24 22:00 04/09/24 05:50 Central Line Flush IV PUSH 10 ml Q8HR SHAKILA Administration Radiology Results: ITS Impressions Abdomen/Pelvis CT 04/02/24 05:56 IMPRESSION: 1. Small bowel obstruction with transition point in right abdomen. Abdomen X-Ray 04/03/24 22:26 IMPRESSION: 1. Nasogastric tube in the stomach. 2. Persistent small bowel obstruction. Small Bowel X-Ray 04/04/24 10:19 IMPRESSION: 1. Dilated small bowel with contrast remaining in the proximal small bowel at 2 hours, consistent with small bowel obstruction. Labs Labs: Laboratory Results - last 24 hr 04/07/24 04/08/24 04/08/24 09:39 09:27 11:55 WBC 6.8 RBC 3.14 L Hgb 9.5 L Hct 28.4 L MCV 90.4 MCH 30.3 MCHC 33.5 RDW 13.7 Plt Count 144 L MPV 10.7 H Immature Gran % (Auto) Neut % (Auto) Lymph % (Auto) [place] % (Auto) Eos % (Auto) Baso % (Auto) Lymph # (Auto) [place] # (Auto) Eos # (Auto) Baso # (Auto) Abs Immat Gran (auto) Absolute Neuts (auto) Absolute Nucleated RBC Nucleated RBC % Sodium Potassium Chloride Carbon Dioxide Anion Gap BUN Creatinine Estim Creat Clear Calc Estimated GFR Glucose POC Capillary Glucose 279 H Calcium Phosphorus Magnesium % Saturation < 5 L Total Bilirubin AST ALT Alkaline Phosphatase Total Protein Albumin 04/08/24 04/09/24 04/09/24 18:16 00:07 05:14 WBC RBC Hgb Hct MCV MCH MCHC RDW Plt Count MPV Immature Gran % (Auto) Neut % (Auto) Lymph % (Auto) [place] % (Auto) Eos % (Auto) Baso % (Auto) Lymph # (Auto) [place] # (Auto) Eos # (Auto) Baso # (Auto) Abs Immat Gran (auto) Absolute Neuts (auto) Absolute Nucleated RBC Nucleated RBC % Sodium Potassium Chloride Carbon Dioxide Anion Gap BUN Creatinine Estim Creat Clear Calc Estimated GFR Glucose POC Capillary Glucose 286 H 262 H 286 H Calcium Phosphorus Magnesium % Saturation Total Bilirubin AST ALT Alkaline Phosphatase Total Protein Albumin 04/09/24 05:25 WBC 6.2 RBC 3.19 L Hgb 9.5 L Hct 29.2 L MCV 91.5 MCH 29.8 MCHC 32.5 RDW 13.3 Plt Count 182 MPV 10.9 H Immature Gran % (Auto) 1.0 H Neut % (Auto) 59.0 Lymph % (Auto) 20.4 [place] % (Auto) 13.8 H Eos % (Auto) 5.2 H Baso % (Auto) 0.6 Lymph # (Auto) 1.26 [place] # (Auto) 0.9 H Eos # (Auto) 0.3 Baso # (Auto) 0.0 Abs Immat Gran (auto) 0.06 H Absolute Neuts (auto) 3.7 Absolute Nucleated RBC 0.000 Nucleated RBC % 0.0 Sodium 137 Potassium 2.9 L Chloride 98 Carbon Dioxide 33 H Anion Gap 6 BUN 25 H Creatinine 0.70 Estim Creat Clear Calc 55 Estimated GFR > 60 Glucose 263 H POC Capillary Glucose Calcium 8.1 L Phosphorus 2.3 L Magnesium 1.6 % Saturation Total Bilirubin 0.7 AST 22 ALT 16 Alkaline Phosphatase 66 Total Protein 6.0 L Albumin 3.0 L
[2024-04-09] MEDS: ONDANSETRON INJ 4 MG/2 ML VIAL 8 MG IV PUSH (10:23)
[2024-04-09] MEDS: METHYLNALTREXONE 12 MG/0.6 ML VIAL SUB-Q (10:23)
[2024-04-09] MEDS: BISACODYL 10 MG SUPPOSITORY RECTAL (10:23)
[2024-04-09] MEDS: IRON SUCROSE COMPLEX 400 MG, IRON SUCROSE COMPLEX 100 MG in SODIUM CHLORIDE 0.9% IV 250 ML 78.57 MG IVPB (10:23)
[2024-04-09 10:37] LABS: Ionized Calcium 4.8 mg/dL (4.7-5.5)
--- NOTE | 2024-04-09 10:51 | P.PNIM_ITS ---
Progress Note: A&P Assessment and Plan (1) Small bowel obstruction: Code(s): K56.609 - Unspecified intestinal obstruction, unspecified as to partial versus complete obstruction Status: Acute (2) Diabetes mellitus: Code(s): E11.9 - Type 2 diabetes mellitus without complications Status: Acute Plan Small bowel obstruction: Code(s): K56.609 - Unspecified intestinal obstruction, unspecified as to partial versus complete obstruction Status: Acute Assessment and Plan: 04/04 Exploratory lap with SB resection, adhesiolysis, and ileostomy TPN running, monitor electrolytes Discontinue MANAGER LAN and start PRN IV dilaudid Start PRN [place] once clear for PO intake by surgery Gen surgery following Acute blood loss anemia Likely resulting from surgical procedure Hemoglobin 9.5, hemoglobin 13.3 upon arrival Isat 10 IV iron 1000/1000 monitor H and H Electrolyte abnormality, resolving Hypokalemia potassium 2.9 Hypocalcemia Ca 8.1 today Hypophosphatemia 2.3 Hypoalbuminemia 3.0 Hypomagnesemia Mg 1.6 monitor and replace accordingly Hypoalbuminemia Albumin 3.0 today, upon arrival in 4.4 continue monitoring restart PO intake when cleared by gen blas Diabetes mellitus: Code(s): E11.9 - Type 2 diabetes mellitus without complications Status: Acute Assessment and Plan: 04/05 FBS 332, current has D5 in IV but plan is for PICC line for TPN 04/05 Basal glargine 15 U and low dose q 6h corrective regimen 04/06AM Blood sugar 249, TPN running, Basal glargine increased to 20 U Glucose is not uncontrolled and target increase Lantus to 25 unit, continue insulin sliding scale q.6 hour 04/07 Essential hypertension: Code(s): I10 - Essential (primary) hypertension Status: Acute Assessment and Plan: 04/05 137/58 DVT prophylaxis on Lovenox Subjective Date/time seen: 04/09/24 10:51 Interval history: Patient passing flatus and having a bowel movement at the time of this encounter Surgery considering possibly restarting oral intake later today Review of Systems Review of Systems: All systems are reviewed and are negative unless stated otherwise in the HPI. All systems reviewed & are unremarkable except as noted in HPI and below ROS unobtainable: Yes unobtainable due to medical condition Exam Narrative: GENERAL: Ill-appearing in no acute distress. Well-nourished. - EYES: EOMI. Anicteric. - HENT: Moist mucous membranes. - LUNGS: Clear to auscultation bilateral ly, no wheezing, rhonchi, or rales. - CARDIOVASCULAR: Regular rate and rhyth m. No murmur. No JVD. - ABDOMEN: Soft, mild diffuse tender and non-distended. No palpable masses. Surgical wound is dry and clean, bowel sounds normoactive - EXTREMITIES: No edema. Peripheral puls es 2+. Non-tender. - NEUROLOGIC: No focal neurological defi cits. CN II-XII grossly intact. General weakness, - PSYCHIATRIC: Awake, Alert and oriented x 3. Appropriate mood and affect. - SKIN: No rashes or lesions. Warm. - LYMPH: No cervical lymphadenopathy. Const: General: no acute distress, uncomfortable (Due to abdominal pain) and average body habitus Nutritional Appearance: average body habitus Orientation/consciousness: patient oriented x3 HENMT: Head: normocephalic and atraumatic Ears: hearing grossly normal bilaterally Mouth: Yes moist mucous membranes Eyes: General: appearance normal, both eyes and all related structures Pupils: Equal, round and reactive pupils present Neck: Neck: normal visual inspection and full ROM Resp: Effort & Inspection: no respiratory distress Auscultation: clear to auscultation bilaterally Cardio: Rate: regular rate Rhythm: regular rhythm Heart sounds: S1 normal heart sound present and S2 normal heart sound present Peripheral pulses: Peripheral pulses 2+ throughout GI: Inspection: distended, scar (3 vertical scars from the midline to the right mid abdomen) and no visible herniation Auscultation: Hypoactive bowel sounds present Skin: General skin exam: normal color Neuro: General: patient oriented x3, moves all extremities and no focal motor deficits Cranial nerves: Yes Equal, round and reactive pupils present Speech: normal speech Motor exam (neuro): 5/5 motor strength present throughout Extrem: General: normal to inspection and no edema Psych: Mental Status: mental status grossly normal Attitude: cooperative Insight: Good insight present (Psych) Judgement: Good judgement present (Psych) Objective Data Vital Signs Vital Signs: Vital Signs - 24 hr 04/08/24 11:38 04/08/24 14:18 04/08/24 11:00 Temperature Pulse Rate 98 Respiratory Rate 12 16 Blood Pressure Pulse Oximetry 96 95 94 Oxygen Delivery Nasal Cannula Nasal Cannula Oxygen Flow Rate 1 2 04/08/24 14:57 04/08/24 16:52 04/08/24 19:37 Temperature 97.6 F Pulse Rate 112 H 98 Respiratory Rate 14 16 15 Blood Pressure 154/94 H Pulse Oximetry 95 94 94 Oxygen Delivery Nasal Cannula Oxygen Flow Rate 2 04/08/24 20:27 04/08/24 19:00 04/09/24 00:27 Temperature 97.4 F L Pulse Rate 90 Respiratory Rate 12 16 16 Blood Pressure 168/72 H Pulse Oximetry 93 93 94 Oxygen Delivery Oxygen Flow Rate 04/09/24 00:00 04/08/24 20:00 04/09/24 05:25 Temperature 97.6 F 97.8 F Pulse Rate 90 92 Respiratory Rate 14 16 Blood Pressure 110/55 L 165/71 H Pulse Oximetry 95 94 95 Oxygen Delivery Room Air Oxygen Flow Rate 04/09/24 04:25 Temperature Pulse Rate Respiratory Rate 16 Blood Pressure Pulse Oximetry 95 Oxygen Delivery Oxygen Flow Rate Intake/Output Intake/Output: Intake & Output 04/06/24 04/07/24 04/08/24 04/09/24 23:59 23:59 23:59 23:59 Intake Total 2675.8 3494.9667 2577.8 1080 Output Total 4275 4200 4800 1650 Balance 300.8 -705.0333 -2222.2 -570 Meds/Results Medications: Active Medications Generic Name Dose Route Start Last Admin Trade Name Freq PRN Reason Stop Dose Admin Dextrose 12.5 gm 04/05/24 13:22 Dextrose 50% 25 Gm/50 Ml Syringe IV PUSH PRN PRN Hypoglycemia Protocol Diphenhydramine HCl 25 mg 04/05/24 13:05 04/07/24 20:02 Diphenhydramine Hcl Inj 50 Mg/Ml Vial IV PUSH 25 mg Q4H PRN Administration Itching Enoxaparin Sodium 40 mg 04/05/24 09:00 04/09/24 08:56 Enoxaparin 40 Mg/0.4 Ml Syringe SUB-Q 40 mg DAILY SHAKILA Administration Glucagon 1 mg 04/05/24 13:22 Glucagon For Inj 1 Mg Vial IM PRN PRN Hypoglycemia Protocol Glucose 15 gm 04/05/24 13:22 Glucose Oral Gel 15 Gm Of Glucse In 37.5 Gm Tube PO PRN PRN Hypoglycemia Protocol Hydromorphone HCl 1 mg 04/04/24 21:53 04/08/24 12:09 Hydromorphone Hcl Inj (*Crx) 1 Mg/Ml Syr IV PUSH 1 mg Q2H PRN Administration Breakthrough Pain Rated 7-10 or NPO Hydromorphone HCl 0.5 mg 04/04/24 21:53 04/05/24 06:31 Hydromorphone Hcl Inj (*Crx) 1 Mg/Ml Syr IV PUSH 0.5 mg Q2H PRN Administration Breakthrough Pain Rated 4-6 or NPO Ibuprofen 800 mg in 200 mls @ 400 mls/hr 04/04/24 21:53 04/05/24 11:01 Caldolor 800 Mg/200 Ml IVPB Infused Q6H PRN Infusion Breakthrough Pain Rated 1-3 or NPO Morphine Sulfate 30 mg in 30 mls @ 1 mls/hr 04/05/24 13:12 04/09/24 04:25 Morphine Sulfate Network Security Engineer IV CONT 1 mg/hr PRN PRN 1 mls/hr MANAGER LAN Management Titration Protocol 1 MG/HR Dextrose 1,000 mls @ 100 mls/hr 04/05/24 13:22 Dextrose 5% 1,000 Ml IVPB PRN PRN Hypoglycemia Protocol Dextrose 1,000 mls @ 50 mls/hr 04/05/24 15:13 Dextrose 10% IV CONT .Q20H PRN if PN is interrupted Multivitamins 2.5 ml/ 2,005 mls @ 50 mls/hr 04/05/24 16:00 04/08/24 16:53 Multivitamins 2.5 ml/ Amino IV CONT 50 mls/hr Acids/Electrolytes/Dextrose .Q24H SHAKILA Administration Protocol Fat Emulsion Intravenous 250 mls @ 20.833 mls/hr 04/05/24 16:00 04/09/24 05:20 Lipids 20% IVPB Infused Q24H SHAKILA Infusion Potassium Chloride 100 mls @ 25 mls/hr 04/09/24 07:20 04/09/24 08:57 Kcl 40 Meq/Water 100 Ml IVPB 04/09/24 11:19 25 mls/hr ONCE ONE Administration Iron Sucrose 400 mg/ Iron 275 mls @ 78.571 mls/hr 04/09/24 09:00 04/09/24 10:23 Sucrose 100 mg/ Sodium IVPB 04/09/24 12:29 78.57 mls/hr Chloride ONCE ONE Administration Insulin Aspart 2 - 5 units 04/05/24 18:00 04/09/24 05:50 Insulin Aspart (*Bkc) 100 Units/Ml SUB-Q 3 units Q6HR SHAKILA Administration Protocol Insulin Glargine 25 units 04/07/24 21:00 04/09/24 00:33 Insulin Glargine (*Bkc) 100 Units/Ml SUB-Q 25 units HS SHAKILA Administration Naloxone HCl 0.1 mg 04/04/24 21:53 Naloxone Hcl 0.4 Mg/Ml Vial IV PUSH Q2M PRN Opiate Reversal Ondansetron HCl 8 mg 04/03/24 10:15 04/09/24 10:23 Ondansetron Inj 4 Mg/2 Ml Vial IV PUSH 8 mg Q6H PRN Administration Nausea And Vomiting Phenol 1 spray 04/03/24 22:07 04/03/24 23:37 Phenol/Sod Pheno [place] (*Bkc) MUCOUS MEM 1 spray PRN PRN Administration Sore Throat Polyethylene Glycol 17 gm 04/07/24 10:45 04/09/24 08:56 Polyethylene Glycol 3350 17 Gm Powd.Pack FEED TUBE 17 gm QAM SHAKILA Administration Sodium Chloride 20 ml 04/05/24 16:15 04/06/24 04:48 Central Line Flush IV PUSH 20 ml PRN PRN Administration after blood draws Sodium Chloride 10 ml 04/05/24 16:15 Central Line Flush IV PUSH PRN PRN with TPN bag changes Sodium Chloride 10 ml 04/05/24 22:00 04/09/24 05:50 Central Line Flush IV PUSH 10 ml Q8HR SHAKILA Administration Radiology Results: ITS Impressions Abdomen/Pelvis CT 04/02/24 05:56 IMPRESSION: 1. Small bowel obstruction with transition point in right abdomen. Abdomen X-Ray 04/03/24 22:26 IMPRESSION: 1. Nasogastric tube in the stomach. 2. Persistent small bowel obstruction. Small Bowel X-Ray 04/04/24 10:19 IMPRESSION: 1. Dilated small bowel with contrast remaining in the proximal small bowel at 2 hours, consistent with small bowel obstruction. Labs Labs: Laboratory Results - last 24 hr 04/07/24 04/08/24 04/08/24 09:39 11:55 18:16 WBC RBC Hgb Hct MCV MCH MCHC RDW Plt Count MPV Immature Gran % (Auto) Neut % (Auto) Lymph % (Auto) [place] % (Auto) Eos % (Auto) Baso % (Auto) Lymph # (Auto) [place] # (Auto) Eos # (Auto) Baso # (Auto) Abs Immat Gran (auto) Absolute Neuts (auto) Absolute Nucleated RBC Nucleated RBC % Sodium Potassium Chloride Carbon Dioxide Anion Gap BUN Creatinine Estim Creat Clear Calc Estimated GFR Glucose POC Capillary Glucose 279 H 286 H Calcium Ionized Calcium [place] 4.8 Phosphorus Magnesium % Saturation < 5 L Total Bilirubin AST ALT Alkaline Phosphatase Total Protein Albumin 04/09/24 04/09/24 04/09/24 00:07 05:14 05:25 WBC 6.2 RBC 3.19 L Hgb 9.5 L Hct 29.2 L MCV 91.5 MCH 29.8 MCHC 32.5 RDW 13.3 Plt Count 182 MPV 10.9 H Immature Gran % (Auto) 1.0 H Neut % (Auto) 59.0 Lymph % (Auto) 20.4 [place] % (Auto) 13.8 H Eos % (Auto) 5.2 H Baso % (Auto) 0.6 Lymph # (Auto) 1.26 [place] # (Auto) 0.9 H Eos # (Auto) 0.3 Baso # (Auto) 0.0 Abs Immat Gran (auto) 0.06 H Absolute Neuts (auto) 3.7 Absolute Nucleated RBC 0.000 Nucleated RBC % 0.0 Sodium 137 Potassium 2.9 L Chloride 98 Carbon Dioxide 33 H Anion Gap 6 BUN 25 H Creatinine 0.70 Estim Creat Clear Calc 55 Estimated GFR > 60 Glucose 263 H POC Capillary Glucose 262 H 286 H Calcium 8.1 L Ionized Calcium [place] Phosphorus 2.3 L Magnesium 1.6 % Saturation Total Bilirubin 0.7 AST 22 ALT 16 Alkaline Phosphatase 66 Total Protein 6.0 L Albumin 3.0 L
[2024-04-09 12:02] LABS: Glucose Point of Care 285 mg/dl (65-105)
[2024-04-09] MEDS: AMINO ACIDS 5%/D15W/E-LYTES/CA 2,000 ML with MULTIVITAMINS-12 INJ VIAL 1 2.5 ML, MULTIV... 50 ML IV CONT (16:08)
[2024-04-09] MEDS: FAT EMULSIONS IV 20% 250 ML 20 ML IVPB (16:08)
[2024-04-09 16:40] LABS: Potassium 3.8 mmol/L (3.4-5.0)
[2024-04-09 17:29] LABS: Glucose Point of Care 262 mg/dl (65-105)
[2024-04-09] MEDS: HYDROmorphone HCL INJ (*CRX) 1 MG/ML SYR IV PUSH (18:42)
[2024-04-09 21:01] LABS: Glucose Point of Care 235 mg/dl (65-105)
[2024-04-10] VITALS (12 sets, daily range): BP systolic 112–161; BP diastolic 54–91; PULSE 71–114; RESP 14–22; TEMP 35.9–36.8; O2SAT 91–100
[2024-04-10] MEDS: HYDROmorphone HCL INJ (*CRX) 1 MG/ML SYR 0.5 MG IV PUSH (02:04)
[2024-04-10 06:00] LABS: Basophils Absolute Auto 0.1 K/mm3 (0.0-0.1); Basophils Percent Auto 0.8 % (0.2-1.2); Eosinophils Absolute Auto 0.8 K/mm3 (0-0.3); Eosinophils Percent Auto 8.6 % (0-4.4); Hematocrit 29.5 % (37.0-47.0); Immature Granulocyte Absolute 0.37 K/mm3 (0.00-0.031); Immature Granulocyte Percent A 4.1 % (0-0.5); Lymphocytes Absolute Auto 1.75 K/mm3 (0.9-3.2); Lymphocytes Percent Auto 19.4 % (18.3-44.2); Mean Corpuscular HGB Conc 33.9 g/dl (32-36); Mean Corpuscular Hemoglobin 30.3 pg (26-34); Mean Corpuscular Volume 89.4 fl (80-100); Mean Platelet Volume 10.5 fl (7.4-10.4); Monocytes Absolute Auto 1.1 K/mm3 (0.1-0.6); Monocytes Percent Auto 12.1 % (2.6-8.5); Platelet Count Result 224 k/mm3 (150-375); Red Cell Distribution Width 13.5 % (11.5-14.5)
[2024-04-10 06:21] LABS: Alanine Aminotransferase 18 U/L (6-35); Alkaline Phosphatase 80 U/L (38-126); Anion Gap 4 mmol/L (4-12); Aspartate Amino Transferase 30 U/L (14-36); Bilirubin,Total 0.6 mg/dL (0.2-1.3); Blood Urea Nitrogen 20 mg/dL (7-17); Calcium 8.3 mg/dL (8.4-10.2); Carbon Dioxide 29 mmol/L (22-30); Chloride 100 mmol/L (98-107); Estimated CRCL calculation 63 ml/min; Estimated Glomerular Filt Rate > 60; Glucose 239 mg/dL (65-110); Magnesium 1.6 mg/dL (1.6-2.3); Phosphorus 2.8 mg/dL (2.5-4.5); Potassium 2.9 mmol/L (3.4-5.0); Sodium 133 mmol/L (137-145); Triglycerides 211 mg/dL (<150)
[2024-04-10] MEDS: INSULIN ASPART (*BKC) 100 UNITS/ML SUB-Q ×3 (06:38→17:08)
[2024-04-10] MEDS: CENTRAL LINE FLUSH 10 ML IV PUSH (06:39)
[2024-04-10 06:58] LABS: Glucose Point of Care 269 mg/dl (65-105)
[2024-04-10 07:59] LABS: Glucose Point of Care 226 mg/dl (65-105)
[2024-04-10] MEDS: polyethylene glycoL 3350 17 GM POWD.PACK FEED TUBE (09:39)
[2024-04-10] MEDS: ENOXAPARIN 40 MG/0.4 ML SYRINGE SUB-Q (09:39)
--- NOTE | 2024-04-10 09:56 | PC.NURSE ---
I spoke to Marcia Rosales RN about her documentation related to ULTRASOUND SUPERVISOR administration on 04/07/24. RN stated her computer was glitchy that night, so might be why it's not in the MAR correctly. Morphine was scanned and administered on 04/07/24 @ 015, verified & co-signed by Yanira Miles RN. This syringe was accounted for.
--- NOTE | 2024-04-10 11:18 | PCPTNOTE ---
Patient refused treatment this session due to patient reporting abdominal pain at 10/10. Educated patient on the importance of therapy and getting up out of bed.
--- NOTE | 2024-04-10 11:49 | P.PNGS_ITS ---
Progress Note: A&P Assessment and Plan (1) Postoperative ileus: Code(s): K91.89 - Other postprocedural complications and disorders of digestive system; K56.7 - Ileus, unspecified Status: Acute Assessment and Plan: * More distended and pain since patient removed her NG yesterday. Will get KUB this AM. Might need to replace NG. (2) Protein calorie malnutrition: Code(s): E46 - Unspecified protein-calorie malnutrition Status: Acute Assessment and Plan: * Continue TPN * Replace K (3) Complete obstruction of small intestine: Code(s): K56.601 - Complete intestinal obstruction, unspecified as to cause Status: Acute Assessment and Plan: * Continue MiraLax. * PT/OT ordered * TPN running, monitor electrolytes (4) Chronic, continuous use of opioids: Code(s): F11.90 - Opioid use, unspecified, uncomplicated Status: Acute Assessment and Plan: * Continue Morphine MAGNET VALVE ASSEMBLER with basal rate. * Continue prn Dilaudid IV push. (5) Diabetes mellitus: Code(s): E11.9 - Type 2 diabetes mellitus without complications Status: Acute Subjective Subjective Date/Time Seen: 04/10/24 11:49 Interval history: Still not moving bowels much yet. Passing some flatus. More abdominal pain, feeling distended, and nauseated. Exam GI: Inspection: distended and incision (intact with jesse) GI Palp: Yes Soft to palpation, Yes Tenderness to palpation present (GI) (diffusely) and Yes Guarding due to palpation present (GI) Objective Data Vital Signs Vital Signs: Vital Signs - 24 hr 04/09/24 14:25 04/09/24 14:00 04/09/24 16:30 Temperature 97 F L Pulse Rate 89 95 Respiratory Rate 10 L 14 14 Blood Pressure 178/89 H Pulse Oximetry 95 93 95 Oxygen Delivery Room Air Oxygen Flow Rate 04/09/24 18:00 04/09/24 20:48 04/09/24 20:44 Temperature 97.3 F L Pulse Rate 90 98 96 Respiratory Rate 12 18 14 Blood Pressure 170/72 H 149/72 H Pulse Oximetry 96 99 94 Oxygen Delivery Nasal Cannula Oxygen Flow Rate 2 04/09/24 20:00 04/09/24 20:11 04/10/24 00:15 Temperature Pulse Rate Respiratory Rate 16 16 Blood Pressure Pulse Oximetry 93 94 Oxygen Delivery Room Air Oxygen Flow Rate 04/10/24 06:00 04/10/24 04:10 04/10/24 08:07 Temperature 96.6 F L Pulse Rate 114 H 103 H Respiratory Rate 20 16 22 H Blood Pressure 161/91 H Pulse Oximetry 99 94 96 Oxygen Delivery Room Air Oxygen Flow Rate 04/10/24 10:00 Temperature 97.6 F Pulse Rate 78 Respiratory Rate 16 Blood Pressure 158/70 H Pulse Oximetry 97 Oxygen Delivery Oxygen Flow Rate Intake/Output Intake/Output: Intake & Output 04/07/24 04/08/24 04/09/24 04/10/24 23:59 23:59 23:59 23:59 Intake Total 3494.9667 2577.8 2256.2 350 Output Total 4200 4800 1650 Balance -705.0333 -2222.2 606.2 350 Meds/Results Medications: Active Medications Generic Name Dose Route Start Last Admin Trade Name Freq PRN Reason Stop Dose Admin Dextrose 12.5 gm 04/05/24 13:22 Dextrose 50% 25 Gm/50 Ml Syringe IV PUSH PRN PRN Hypoglycemia Protocol Diphenhydramine HCl 25 mg 04/05/24 13:05 04/07/24 20:02 Diphenhydramine Hcl Inj 50 Mg/Ml Vial IV PUSH 25 mg Q4H PRN Administration Itching Enoxaparin Sodium 40 mg 04/05/24 09:00 04/10/24 09:39 Enoxaparin 40 Mg/0.4 Ml Syringe SUB-Q 40 mg DAILY SHAKILA Administration Glucagon 1 mg 04/05/24 13:22 Glucagon For Inj 1 Mg Vial IM PRN PRN Hypoglycemia Protocol Glucose 15 gm 04/05/24 13:22 Glucose Oral Gel 15 Gm Of Glucse In 37.5 Gm Tube PO PRN PRN Hypoglycemia Protocol Hydromorphone HCl 1 mg 04/04/24 21:53 04/09/24 18:42 Hydromorphone Hcl Inj (*Crx) 1 Mg/Ml Syr IV PUSH 1 mg Q2H PRN Administration Breakthrough Pain Rated 7-10 or NPO Hydromorphone HCl 0.5 mg 04/04/24 21:53 04/10/24 02:04 Hydromorphone Hcl Inj (*Crx) 1 Mg/Ml Syr IV PUSH 0.5 mg Q2H PRN Administration Breakthrough Pain Rated 4-6 or NPO Ibuprofen 800 mg in 200 mls @ 400 mls/hr 04/04/24 21:53 04/05/24 11:01 Caldolor 800 Mg/200 Ml IVPB Infused Q6H PRN Infusion Breakthrough Pain Rated 1-3 or NPO Morphine Sulfate 30 mg in 30 mls @ 0 mls/hr 04/05/24 13:12 04/10/24 04:10 Morphine Sulfate White Sugar Pan Tank Operator IV CONT 0 mg/hr PRN PRN 0 mls/hr MAGNET VALVE ASSEMBLER Management Titration Protocol 0 MG/HR Dextrose 1,000 mls @ 100 mls/hr 04/05/24 13:22 Dextrose 5% 1,000 Ml IVPB PRN PRN Hypoglycemia Protocol Dextrose 1,000 mls @ 50 mls/hr 04/05/24 15:13 Dextrose 10% IV CONT .Q20H PRN if PN is interrupted Multivitamins 2.5 ml/ 2,005 mls @ 50 mls/hr 04/05/24 16:00 04/09/24 16:08 Multivitamins 2.5 ml/ Amino IV CONT 50 mls/hr Acids/Electrolytes/Dextrose .Q24H SHAKILA Administration Protocol Fat Emulsion Intravenous 250 mls @ 20.833 mls/hr 04/05/24 16:00 04/10/24 04: 35 Lipids 20% IVPB Infused Q24H SHAKILA Infusion Potassium Chloride 100 mls @ 25 mls/hr 04/10/24 12:00 Kcl 40 Meq/Water 100 Ml IVPB 04/10/24 15:59 ONCE ONE Insulin Aspart 2 - 5 units 04/05/24 18:00 04/10/24 06:38 Insulin Aspart (*Bkc) 100 Units/Ml SUB-Q 3 units Q6HR SHAKILA Administration Protocol Insulin Glargine 25 units 04/07/24 21:00 04/09/24 20:57 Insulin Glargine (*Bkc) 100 Units/Ml SUB-Q 25 units HS SHAKILA Administration Miscellaneous Information 1 each 04/10/24 00:01 Clinamix Needs To Be Renewed Or It Will Automatically Discontinue. XX 05/10/24 00:00 CLARIFY SHAKILA Naloxone HCl 0.1 mg 04/04/24 21:53 Naloxone Hcl 0.4 Mg/Ml Vial IV PUSH Q2M PRN Opiate Reversal Ondansetron HCl 8 mg 04/03/24 10:15 04/09/24 10:23 Ondansetron Inj 4 Mg/2 Ml Vial IV PUSH 8 mg Q6H PRN Administration Nausea And Vomiting Phenol 1 spray 04/03/24 22:07 04/03/24 23:37 Phenol/Sod Pheno [place] [employer] (*Bkc) MUCOUS MEM 1 spray PRN PRN Administration Sore Throat Polyethylene Glycol 17 gm 04/07/24 10:45 04/10/24 09:39 Polyethylene Glycol 3350 17 Gm Powd.Pack FEED TUBE 17 gm QAM SHAKILA Administration Sodium Chloride 20 ml 04/05/24 16:15 04/06/24 04:48 Central Line Flush IV PUSH 20 ml PRN PRN Administration after blood draws Sodium Chloride 10 ml 04/05/24 16:15 Central Line Flush IV PUSH PRN PRN with TPN bag changes Sodium Chloride 10 ml 04/05/24 22:00 04/10/24 06:39 Central Line Flush IV PUSH 10 ml Q8HR SHAKILA Administration Radiology Results: ITS Impressions Abdomen/Pelvis CT 04/02/24 05:56 IMPRESSION: 1. Small bowel obstruction with transition point in right abdomen. Abdomen X-Ray 04/03/24 22:26 IMPRESSION: 1. Nasogastric tube in the stomach. 2. Persistent small bowel obstruction. Small Bowel X-Ray 04/04/24 10:19 IMPRESSION: 1. Dilated small bowel with contrast remaining in the proximal small bowel at 2 hours, consistent with small bowel obstruction. Labs Labs: Laboratory Results - last 24 hr 04/09/24 04/09/24 04/09/24 11:51 16:21 17:26 WBC RBC Hgb Hct MCV MCH MCHC RDW Plt Count MPV Immature Gran % (Auto) Neut % (Auto) Lymph % (Auto) [place] % (Auto) Eos % (Auto) Baso % (Auto) Lymph # (Auto) [place] # (Auto) Eos # (Auto) Baso # (Auto) Abs Immat Gran (auto) Absolute Neuts (auto) Absolute Nucleated RBC Nucleated RBC % Sodium Potassium 3.8 Chloride Carbon Dioxide Anion Gap BUN Creatinine Estim Creat Clear Calc Estimated GFR Glucose POC Capillary Glucose 285 H 262 H Calcium Phosphorus Magnesium Total Bilirubin AST ALT Alkaline Phosphatase Total Protein Albumin Triglycerides 04/09/24 04/10/24 04/10/24 20:42 05:50 06:25 WBC 9.0 RBC 3.30 L Hgb 10.0 L Hct 29.5 L MCV 89.4 MCH 30.3 MCHC 33.9 RDW 13.5 Plt Count 224 MPV 10.5 H Immature Gran % (Auto) 4.1 H Neut % (Auto) 55.0 Lymph % (Auto) 19.4 [place] % (Auto) 12.1 H Eos % (Auto) 8.6 H Baso % (Auto) 0.8 Lymph # (Auto) 1.75 [place] # (Auto) 1.1 H Eos # (Auto) 0.8 H Baso # (Auto) 0.1 Abs Immat Gran (auto) 0.37 H Absolute Neuts (auto) 5.0 Absolute Nucleated RBC 0.000 Nucleated RBC % 0.0 Sodium 133 L Potassium 2.9 L Chloride 100 Carbon Dioxide 29 Anion Gap 4 BUN 20 H Creatinine 0.60 L Estim Creat Clear Calc 63 Estimated GFR > 60 Glucose 239 H POC Capillary Glucose 235 H 269 H Calcium 8.3 L Phosphorus 2.8 Magnesium 1.6 Total Bilirubin 0.6 AST 30 ALT 18 Alkaline Phosphatase 80 Total Protein 6.0 L Albumin 3.0 L Triglycerides 211 H 04/10/24 07:48 WBC RBC Hgb Hct MCV MCH MCHC RDW Plt Count MPV Immature Gran % (Auto) Neut % (Auto) Lymph % (Auto) [place] % (Auto) Eos % (Auto) Baso % (Auto) Lymph # (Auto) [place] # (Auto) Eos # (Auto) Baso # (Auto) Abs Immat Gran (auto) Absolute Neuts (auto) Absolute Nucleated RBC Nucleated RBC % Sodium Potassium Chloride Carbon Dioxide Anion Gap BUN Creatinine Estim Creat Clear Calc Estimated GFR Glucose POC Capillary Glucose 226 H Calcium Phosphorus Magnesium Total Bilirubin AST ALT Alkaline Phosphatase Total Protein Albumin Triglycerides
[2024-04-10 12:14] LABS: Glucose Point of Care 268 mg/dl (65-105)
[2024-04-10] MEDS: KCL 40 MEQ/WATER 100 ML 100 ML 25 ML IVPB (12:18)
--- NOTE | 2024-04-10 13:27 | PM.IMPN ---
Progress Note: A&P Assessment and Plan (1) Small bowel obstruction: Code(s): K56.609 - Unspecified intestinal obstruction, unspecified as to partial versus complete obstruction Status: Acute (2) Diabetes mellitus: Code(s): E11.9 - Type 2 diabetes mellitus without complications Status: Acute Plan Small bowel obstruction: Code(s): K56.609 - Unspecified intestinal obstruction, unspecified as to partial versus complete obstruction Status: Acute Assessment and Plan: 04/04 Exploratory lap with SB resection, adhesiolysis, and ileostomy TPN running, monitor electrolytes Discontinue [employer] ATTORNEY and start PRN IV dilaudid Start PRN [place] once cleared for PO intake by surgery repeat KUB today, continue TPN and NPO Gen surgery following Acute blood loss anemia Likely resulting from surgical procedure Hemoglobin 9.5, hemoglobin 13.3 upon arrival Isat 10 IV iron 1000/1000 monitor H and H Electrolyte abnormality, resolving Hypokalemia potassium 2.9 Hypocalcemia Ca 8.1 today Hypophosphatemia 2.3 Hypoalbuminemia 3.0 Hypomagnesemia Mg 1.6 monitor and replace accordingly Hypoalbuminemia Albumin 3.0 today, upon arrival in 4.4 continue monitoring restart PO intake when cleared by gen blas Diabetes mellitus: Code(s): E11.9 - Type 2 diabetes mellitus without complications Status: Acute Assessment and Plan: 04/05 FBS 332, current has D5 in IV but plan is for PICC line for TPN 04/05 Basal glargine 15 U and low dose q 6h corrective regimen 04/06AM Blood sugar 249, TPN running, Basal glargine increased to 20 U Glucose is not uncontrolled and target increase Lantus to 25 unit, continue insulin sliding scale q.6 hour 04/07 Essential hypertension: Code(s): I10 - Essential (primary) hypertension Status: Acute Assessment and Plan: 04/05 137/58 DVT prophylaxis on Lovenox Subjective Date/time seen: 04/10/24 13:27 Interval history: Patient complained of worsening abd pain KUB pending Review of Systems Review of Systems: All systems are reviewed and are negative unless stated otherwise in the HPI. All systems reviewed & are unremarkable except as noted in HPI and below ROS unobtainable: Yes unobtainable due to medical condition Exam Narrative: GENERAL: Ill-appearing in no acute distress. Well-nourished. - EYES: EOMI. Anicteric. - HENT: Moist mucous membranes. - LUNGS: Clear to auscultation bilaterally, no wheezing, rhonchi, or rales. - CARDIOVASCULAR: Regular rate and rhythm. No murmur. No JVD. - ABDOMEN: Soft, mild diffuse tender and non-distended. No palpable masses. Surgical wound is dry and clean, bowel sounds normoactive - EXTREMITIES: No edema. Peripheral pulses 2+. Non-tender. - NEUROLOGIC: No focal neurological deficits. CN II-XII grossly intact. General weakness, - PSYCHIATRIC: Awake, Alert and oriented x 3. Appropriate mood and affect. - SKIN: No rashes or lesions. Warm. - LYMPH: No cervical lymphadenopathy. Const: General: no acute distress, uncomfortable (Due to abdominal pain) and average body habitus Nutritional Appearance: average body habitus Orientation/consciousness: patient oriented x3 HENMT: Head: normocephalic and atraumatic Ears: hearing grossly normal bilaterally Mouth: Yes moist mucous membranes Eyes: General: appearance normal, both eyes and all related structures Pupils: Equal, round and reactive pupils present Neck: Neck: normal visual inspection and full ROM Resp: Effort & Inspection: no respiratory distress Auscultation: clear to auscultation bilaterally Cardio: Rate: regular rate Rhythm: regular rhythm Heart sounds: S1 normal heart sound present and S2 normal heart sound present Peripheral pulses: Peripheral pulses 2+ throughout GI: Inspection: distended, scar (3 vertical scars from the midline to the right mid abdomen) and no visible herniation Auscultation: Hypoactive bowel sounds present Skin: General skin exam: normal color Neuro: General: patient oriented x3, moves all extremities and no focal motor deficits Cranial nerves: Yes Equal, round and reactive pupils present Speech: normal speech Motor exam (neuro): 5/5 motor strength present throughout Extrem: General: normal to inspection and no edema Psych: Mental Status: mental status grossly normal Attitude: cooperative Insight: Good insight present (Psych) Judgement: Good judgement present (Psych) Objective Data Vital Signs Vital Signs: Vital Signs - 24 hr 04/09/24 14:25 04/09/24 14:00 04/09/24 16:30 Temperature 97 F L Pulse Rate 89 95 Respiratory Rate 10 L 14 14 Blood Pressure 178/89 H Pulse Oximetry 95 93 95 Oxygen Delivery Room Air Oxygen Flow Rate 10/30/24 18:00 04/09/24 20:48 04/09/24 20:44 Temperature 97.3 F L Pulse Rate 90 98 96 Respiratory Rate 12 18 14 Blood Pressure 170/72 H 149/72 H Pulse Oximetry 96 99 94 Oxygen Delivery Nasal Cannula Oxygen Flow Rate 2 04/09/24 20:00 04/09/24 20:11 04/10/24 00:15 Temperature Pulse Rate Respiratory Rate 16 16 Blood Pressure Pulse Oximetry 93 94 Oxygen Delivery Room Air Oxygen Flow Rate 04/10/24 06:00 04/10/24 04:10 04/10/24 08:07 Temperature 96.6 F L Pulse Rate 114 H 103 H Respiratory Rate 20 16 22 H Blood Pressure 161/91 H Pulse Oximetry 99 94 96 Oxygen Delivery Room Air Oxygen Flow Rate 04/10/24 10:00 04/10/24 09:00 04/10/24 12:09 Temperature 97.6 F Pulse Rate 78 Respiratory Rate 16 16 16 Blood Pressure 158/70 H Pulse Oximetry 97 95 94 Oxygen Delivery Oxygen Flow Rate Intake/Output Intake/Output: Intake & Output 04/07/24 04/08/24 04/09/24 04/10/24 23:59 23:59 23:59 23:59 Intake Total 3494.9667 2577.8 2256.2 350 Output Total 4200 4800 1650 Balance -705.0333 -2222.2 606.2 350 Meds/Results Medications: Active Medications Generic Name Dose Route Start Last Admin Trade Name Freq PRN Reason Stop Dose Admin Dextrose 12.5 gm 04/05/24 13:22 Dextrose 50% 25 Gm/50 Ml Syringe IV PUSH PRN PRN Hypoglycemia Protocol Diphenhydramine HCl 25 mg 04/05/24 13:05 04/07/24 20:02 Diphenhydramine Hcl Inj 50 Mg/Ml Vial IV PUSH 25 mg Q4H PRN Administration Itching Enoxaparin Sodium 40 mg 04/05/24 09:00 04/10/24 09:39 Enoxaparin 40 Mg/0.4 Ml Syringe SUB-Q 40 mg DAILY SHAKILA Administration Glucagon 1 mg 04/05/24 13:22 Glucagon For Inj 1 Mg Vial IM PRN PRN Hypoglycemia Protocol Glucose 15 gm 04/05/24 13:22 Glucose Oral Gel 15 Gm Of Glucse In 37.5 Gm Tube PO PRN PRN Hypoglycemia Protocol Hydromorphone HCl 1 mg 04/04/24 21:53 04/09/24 18:42 Hydromorphone Hcl Inj (*Crx) 1 Mg/Ml Syr IV PUSH 1 mg Q2H PRN Administration Breakthrough Pain Rated 7-10 or NPO Hydromorphone HCl 0.5 mg 04/04/24 21:53 04/10/24 02:04 Hydromorphone Hcl Inj (*Crx) 1 Mg/Ml Syr IV PUSH 0.5 mg Q2H PRN Administration Breakthrough Pain Rated 4-6 or NPO Ibuprofen 800 mg in 200 mls @ 400 mls/hr 04/04/24 21:53 04/05/24 11:01 Caldolor 800 Mg/200 Ml IVPB Infused Q6H PRN Infusion Breakthrough Pain Rated 1-3 or NPO Morphine Sulfate 30 mg in 30 mls @ 0 mls/hr 04/05/24 13:12 04/10/24 12:09 Morphine Sulfate [employer] IV CONT 0 mg/hr PRN PRN 0 mls/hr [employer] Management Titration Protocol 0 MG/HR Dextrose 1,000 mls @ 100 mls/hr 04/05/24 13:22 Dextrose 5% 1,000 Ml IVPB PRN PRN Hypoglycemia Protocol Dextrose 1,000 mls @ 50 mls/hr 04/05/24 15:13 Dextrose 10% IV CONT .Q20H PRN if PN is interrupted Multivitamins 2.5 ml/ 2,005 mls @ 50 mls/hr 04/05/24 16:00 04/09/24 16:08 Multivitamins 2.5 ml/ Amino IV CONT 50 mls/hr Acids/Electrolytes/Dextrose .Q24H SHAKILA Administration Protocol Fat Emulsion Intravenous 250 mls @ 20.833 mls/hr 04/05/24 16:00 04/10/24 04:35 Lipids 20% IVPB Infused Q24H SHAKILA Infusion Potassium Chloride 100 mls @ 25 mls/hr 04/10/24 12:00 04/10/24 12:18 Kcl 40 Meq/Water 100 Ml IVPB 04/10/24 15:59 25 mls/hr ONCE ONE Administration Insulin Aspart 2 - 5 units 04/05/24 18:00 04/10/24 12:18 Insulin Aspart (*Bkc) 100 Units/Ml SUB-Q 3 units Q6HR SHAKILA Administration Protocol Insulin Glargine 25 units 04/07/24 21:00 04/09/24 20:57 Insulin Glargine (*Bkc) 100 Units/Ml SUB-Q 25 units HS SHAKILA Administration Miscellaneous Information 1 each 04/10/24 00:01 Clinamix Needs To Be Renewed Or It Will Automatically Discontinue. XX 05/10/24 00:00 CLARIFY SHAKILA Naloxone HCl 0.1 mg 04/04/24 21:53 Naloxone Hcl 0.4 Mg/Ml Vial IV PUSH Q2M PRN Opiate Reversal Ondansetron HCl 8 mg 04/03/24 10:15 04/09/24 10:23 Ondansetron Inj 4 Mg/2 Ml Vial IV PUSH 8 mg Q6H PRN Administration Nausea And Vomiting Phenol 1 spray 04/03/24 22:07 04/03/24 23:37 Phenol/Sod Pheno [employer] (*Bkc) MUCOUS MEM 1 spray PRN PRN Administration Sore Throat Polyethylene Glycol 17 gm 04/07/24 10:45 04/10/24 09:39 Polyethylene Glycol 3350 17 Gm Powd.Pack FEED TUBE 17 gm QAM SHAKILA Administration Sodium Chloride 20 ml 04/05/24 16:15 04/06/24 04:48 Central Line Flush IV PUSH 20 ml PRN PRN Administration after blood draws Sodium Chloride 10 ml 04/05/24 16:15 Central Line Flush IV PUSH PRN PRN with TPN bag changes Sodium Chloride 10 ml 04/05/24 22:00 04/10/24 06:39 Central Line Flush IV PUSH 10 ml Q8HR SHAKILA Administration Radiology Results: ITS Impressions Abdomen/Pelvis CT 04/02/24 05:56 IMPRESSION: 1. Small bowel obstruction with transition point in right abdomen. Small Bowel X-Ray 04/04/24 10:19 IMPRESSION: 1. Dilated small bowel with contrast remaining in the proximal small bowel at 2 hours, consistent with small bowel obstruction. Abdomen X-Ray 04/10/24 12:56 IMPRESSION: 1. Gas within several none dilated loops of small bowel which could represent a postoperative ileus. Labs Labs: Laboratory Results - last 24 hr 04/09/24 04/09/24 04/09/24 16:21 17:26 20:42 WBC RBC Hgb Hct MCV MCH MCHC RDW Plt Count MPV Immature Gran % (Auto) Neut % (Auto) Lymph % (Auto) [place] % (Auto) Eos % (Auto) Baso % (Auto) Lymph # (Auto) [place] # (Auto) Eos # (Auto) Baso # (Auto) Abs Immat Gran (auto) Absolute Neuts (auto) Absolute Nucleated RBC Nucleated RBC % Sodium Potassium 3.8 Chloride Carbon Dioxide Anion Gap BUN Creatinine Estim Creat Clear Calc Estimated GFR Glucose POC Capillary Glucose 262 H 235 H Calcium Phosphorus Magnesium Total Bilirubin AST ALT Alkaline Phosphatase Total Protein Albumin Triglycerides 04/10/24 04/10/24 04/10/24 05:50 06:25 07:48 WBC 9.0 RBC 3.30 L Hgb 10.0 L Hct 29.5 L MCV 89.4 MCH 30.3 MCHC 33.9 RDW 13.5 Plt Count 224 MPV 10.5 H Immature Gran % (Auto) 4.1 H Neut % (Auto) 55.0 Lymph % (Auto) 19.4 [place] % (Auto) 12.1 H Eos % (Auto) 8.6 H Baso % (Auto) 0.8 Lymph # (Auto) 1.75 [place] # (Auto) 1.1 H Eos # (Auto) 0.8 H Baso # (Auto) 0.1 Abs Immat Gran (auto) 0.37 H Absolute Neuts (auto) 5.0 Absolute Nucleated RBC 0.000 Nucleated RBC % 0.0 Sodium 133 L Potassium 2.9 L Chloride 100 Carbon Dioxide 29 Anion Gap 4 BUN 20 H Creatinine 0.60 L Estim Creat Clear Calc 63 Estimated GFR > 60 Glucose 239 H POC Capillary Glucose 269 H 226 H Calcium 8.3 L Phosphorus 2.8 Magnesium 1.6 Total Bilirubin 0.6 AST 30 ALT 18 Alkaline Phosphatase 80 Total Protein 6.0 L Albumin 3.0 L Triglycerides 211 H 04/10/24 12:01 WBC RBC Hgb Hct MCV MCH MCHC RDW Plt Count MPV Immature Gran % (Auto) Neut % (Auto) Lymph % (Auto) [place] % (Auto) Eos % (Auto) Baso % (Auto) Lymph # (Auto) [place] # (Auto) Eos # (Auto) Baso # (Auto) Abs Immat Gran (auto) Absolute Neuts (auto) Absolute Nucleated RBC Nucleated RBC % Sodium Potassium Chloride Carbon Dioxide Anion Gap BUN Creatinine Estim Creat Clear Calc Estimated GFR Glucose POC Capillary Glucose 268 H Calcium Phosphorus Magnesium Total Bilirubin AST ALT Alkaline Phosphatase Total Protein Albumin Triglycerides
[2024-04-10] MEDS: MORPHINE SULFATE PCA (*CRX) 30 MG/30 ML SYR IV CONT (14:56)
[2024-04-10 16:28] LABS: Glucose Point of Care 221 mg/dl (65-105)
[2024-04-10] MEDS: FAT EMULSIONS IV 20% 250 ML 20 ML IVPB (16:56)
[2024-04-10] MEDS: BISACODYL 10 MG SUPPOSITORY RECTAL (16:56)
[2024-04-10] MEDS: AMINO ACIDS 5%/D15W/E-LYTES/CA 2,000 ML with MULTIVITAMINS-12 INJ VIAL 1 2.5 ML, MULTIV... 50 ML IV CONT (16:56)
[2024-04-10] MEDS: INSULIN GLARGINE (*BKC) 100 UNITS/ML 25 UNITS SUB-Q (21:00)
[2024-04-10] MEDS: HYDROmorphone HCL INJ (*CRX) 1 MG/ML SYR IV PUSH (21:04)
[2024-04-11] MEDS: INSULIN ASPART (*BKC) 100 UNITS/ML SUB-Q ×4 (00:02→18:45)
[2024-04-11] MEDS: CENTRAL LINE FLUSH 10 ML IV PUSH ×4 (00:20→21:10)
[2024-04-11 00:52] LABS: Glucose Point of Care 231 mg/dl (65-105)
[2024-04-11] MEDS: ONDANSETRON INJ 4 MG/2 ML VIAL 8 MG IV PUSH ×2 (01:10→06:57)
[2024-04-11] MEDS: HYDROmorphone HCL INJ (*CRX) 1 MG/ML SYR IV PUSH ×5 (02:13→23:31)
[2024-04-11 05:26] VITALS: BP 182/70; PULSE 94; RESP 16; TEMP 36.1; O2SAT 100
[2024-04-11 05:30] VITALS: BP 153/92; PULSE 82; RESP 20; O2SAT 97
[2024-04-11 06:25] LABS: Glucose Point of Care 230 mg/dl (65-105)
[2024-04-11 07:06] LABS: Basophils Absolute Auto 0.1 K/mm3 (0.0-0.1); Basophils Percent Auto 0.7 % (0.2-1.2); Eosinophils Absolute Auto 0.8 K/mm3 (0-0.3); Eosinophils Percent Auto 7.6 % (0-4.4); Hematocrit 28.9 % (37.0-47.0); Hemoglobin 9.6 g/dL (12.0-15.0); Immature Granulocyte Absolute 0.59 K/mm3 (0.00-0.031); Lymphocytes Absolute Auto 1.99 K/mm3 (0.9-3.2); Lymphocytes Percent Auto 20.1 % (18.3-44.2); Mean Corpuscular HGB Conc 33.2 g/dl (32-36); Mean Corpuscular Hemoglobin 30.2 pg (26-34); Mean Corpuscular Volume 90.9 fl (80-100); Mean Platelet Volume 10.9 fl (7.4-10.4); Monocytes Absolute Auto 1.1 K/mm3 (0.1-0.6); Monocytes Percent Auto 11.1 % (2.6-8.5); Neutrophils Absolute Auto 5.4 K/mm3 (1.3-6.7); Neutrophils Percent Auto 54.5 % (45.5-73.1); Platelet Count Result 267 k/mm3 (150-375); Red Blood Count 3.18 M/mm3 (4.2-5.4); Red Cell Distribution Width 13.5 % (11.5-14.5); White Blood Count 9.9 K/mm3 (4.5-10.0)
[2024-04-11 07:27] LABS: Alanine Aminotransferase 19 U/L (6-35); Alkaline Phosphatase 84 U/L (38-126); Anion Gap 7 mmol/L (4-12); Aspartate Amino Transferase 28 U/L (14-36); Bilirubin,Total 0.5 mg/dL (0.2-1.3); Blood Urea Nitrogen 25 mg/dL (7-17); Calcium 8.3 mg/dL (8.4-10.2); Carbon Dioxide 27 mmol/L (22-30); Chloride 100 mmol/L (98-107); Estimated CRCL calculation 63 ml/min; Estimated Glomerular Filt Rate > 60; Glucose 197 mg/dL (65-110); Phosphorus 3.2 mg/dL (2.5-4.5); Potassium 2.9 mmol/L (3.4-5.0); Sodium 134 mmol/L (137-145)
[2024-04-11 07:29] LABS: Lactic Acid Reflex 1.8 mmol/L (0.7-2.0)
--- NOTE | 2024-04-11 08:17 | P.PNGS_ITS ---
Progress Note: A&P Assessment and Plan (1) Postoperative ileus: Code(s): K91.89 - Other postprocedural complications and disorders of digestive system; K56.7 - Ileus, unspecified Status: Acute Assessment and Plan: * Slowly improving. Start clear liquids today. Increase activity. (2) Protein calorie malnutrition: Code(s): E46 - Unspecified protein-calorie malnutrition Status: Acute Assessment and Plan: * Continue TPN * Replace K (3) Hypokalemia: Code(s): E87.6 - Hypokalemia Status: Acute Assessment and Plan: * Persistently low. Will give KCL x 3 doses today. (4) Complete obstruction of small intestine: Code(s): K56.601 - Complete intestinal obstruction, unspecified as to cause Status: Acute Assessment and Plan: * Continue MiraLax. * PT/OT ordered * TPN running, monitor electrolytes (5) Chronic, continuous use of opioids: Code(s): F11.90 - Opioid use, unspecified, uncomplicated Status: Acute Assessment and Plan: * Continue Morphine [employer] with basal rate. * Continue prn Dilaudid IV push. * Will switch to oral pain meds once tolerating diet. (6) Diabetes mellitus: Code(s): E11.9 - Type 2 diabetes mellitus without complications Status: Acute Subjective Subjective Date/Time Seen: 04/11/24 08:17 Interval history: Pain improving. Patient getting up a little better. No fevers. Passing flatus. Exam GI: Inspection: distended and incision (intact with jesse) GI Palp: Yes Soft to palpation, Yes Tenderness to palpation present (GI) (diffusely) and Yes Guarding due to palpation present (GI) Objective Data Vital Signs Vital Signs: Vital Signs - 24 hr 04/10/24 10:00 04/10/24 09:00 04/10/24 12:09 Temperature 97.6 F Pulse Rate 78 Respiratory Rate 16 16 16 Blood Pressure 158/70 H Pulse Oximetry 97 95 94 Oxygen Delivery 04/10/24 14:56 04/10/24 14:56 04/10/24 14:00 Temperature 98.3 F Pulse Rate 78 Respiratory Rate 14 14 16 Blood Pressure 115/88 Pulse Oximetry 94 94 100 Oxygen Delivery 04/10/24 18:00 04/10/24 21:02 04/10/24 21:00 Temperature 98.3 F 97.7 F Pulse Rate 78 71 Respiratory Rate 16 16 Blood Pressure 112/82 140/54 L Pulse Oximetry 100 91 Oxygen Delivery Room Air 04/10/24 21:00 04/11/24 05:30 04/11/24 05:26 Temperature 97.0 F L Pulse Rate 71 82 94 Respiratory Rate 20 16 Blood Pressure 153/92 H 182/70 H Pulse Oximetry 91 97 100 Oxygen Delivery Room Air Intake/Output Intake/Output: Intake & Output 04/08/24 04/09/24 04/10/24 04/11/24 23:59 23:59 23:59 23:59 Intake Total 2577.8 2256.2 1609.3 250 Output Total 4800 1650 Balance -2222.2 606.2 1609.3 250 Meds/Results Medications: Active Medications Generic Name Dose Route Start Last Admin Trade Name Freq PRN Reason Stop Dose Admin Dextrose 12.5 gm 04/05/24 13:22 Dextrose 50% 25 Gm/50 Ml Syringe IV PUSH PRN PRN Hypoglycemia Protocol Diphenhydramine HCl 25 mg 04/05/24 13:05 04/07/24 20:02 Diphenhydramine Hcl Inj 50 Mg/Ml Vial IV PUSH 25 mg Q4H PRN Administration Itching Enoxaparin Sodium 40 mg 04/05/24 09:00 04/10/24 09:39 Enoxaparin 40 Mg/0.4 Ml Syringe SUB-Q 40 mg DAILY SHAKILA Administration Glucagon 1 mg 04/05/24 13:22 Glucagon For Inj 1 Mg Vial IM PRN PRN Hypoglycemia Protocol Glucose 15 gm 04/05/24 13:22 Glucose Oral Gel 15 Gm Of Glucse In 37.5 Gm Tube PO PRN PRN Hypoglycemia Protocol Hydromorphone HCl 1 mg 04/04/24 21:53 04/11/24 04:44 Hydromorphone Hcl Inj (*Crx) 1 Mg/Ml Syr IV PUSH 1 mg Q2H PRN Administration Breakthrough Pain Rated 7-10 or NPO Hydromorphone HCl 0.5 mg 04/04/24 21:53 04/10/24 02:04 Hydromorphone Hcl Inj (*Crx) 1 Mg/Ml Syr IV PUSH 0.5 mg Q2H PRN Administration Breakthrough Pain Rated 4-6 or NPO Ibuprofen 800 mg in 200 mls @ 400 mls/hr 04/04/24 21:53 04/05/24 11:01 Caldolor 800 Mg/200 Ml IVPB Infused Q6H PRN Infusion Breakthrough Pain Rated 1-3 or NPO Dextrose 1,000 mls @ 100 mls/hr 04/05/24 13:22 Dextrose 5% 1,000 Ml IVPB PRN PRN Hypoglycemia Protocol Dextrose 1,000 mls @ 50 mls/hr 04/05/24 15:13 Dextrose 10% IV CONT .Q20H PRN if PN is interrupted Multivitamins 2.5 ml/ 2,005 mls @ 50 mls/hr 04/05/24 16:00 04/10/24 16:56 Multivitamins 2.5 ml/ Amino IV CONT 50 mls/hr Acids/Electrolytes/Dextrose .Q24H SHAKILA Administration Protocol Fat Emulsion Intravenous 250 mls @ 20.833 mls/hr 04/05/24 16:00 04/11/24 05:26 Lipids 20% IVPB Infused Q24H SHAKILA Infusion Potassium Chloride 100 mls @ 25 mls/hr 04/11/24 08:30 Kcl 40 Meq/Water 100 Ml IVPB 04/11/24 20:29 Q4H SHAKILA Insulin Aspart 2 - 5 units 04/05/24 18:00 04/11/24 05:23 Insulin Aspart (*Bkc) 100 Units/Ml SUB-Q 2 units Q6HR SHAKILA Administration Protocol Insulin Glargine 25 units 04/07/24 21:00 04/10/24 21:00 Insulin Glargine (*Bkc) 100 Units/Ml SUB-Q 25 units [facility] Administration Miscellaneous Information 1 each 04/10/24 00:01 Clinamix Needs To Be Renewed Or It Will Automatically Discontinue. XX 05/10/24 00:00 CLARIFY SHAKILA Naloxone HCl 0.1 mg 04/04/24 21:53 Naloxone Hcl 0.4 Mg/Ml Vial IV PUSH Q2M PRN Opiate Reversal Ondansetron HCl 8 mg 04/03/24 10:15 04/11/24 06:57 Ondansetron Inj 4 Mg/2 Ml Vial IV PUSH 8 mg Q6H PRN Administration Nausea And Vomiting Phenol 1 spray 04/03/24 22:07 04/03/24 23:37 Phenol/Sod Pheno [employer]uss (*Bkc) MUCOUS MEM 1 spray PRN PRN Administration Sore Throat Polyethylene Glycol 17 gm 04/07/24 10:45 04/10/24 09:39 Polyethylene Glycol 3350 17 Gm Powd.Pack FEED TUBE 17 gm QAM SHAKILA Administration Sodium Chloride 20 ml 04/05/24 16:15 04/06/24 04:48 Central Line Flush IV PUSH 20 ml PRN PRN Administration after blood draws Sodium Chloride 10 ml 04/05/24 16:15 Central Line Flush IV PUSH PRN PRN with TPN bag changes Sodium Chloride 10 ml 04/05/24 22:00 04/11/24 05:33 Central Line Flush IV PUSH 10 ml Q8HR SHAKILA Administration Radiology Results: ITS Impressions Abdomen/Pelvis CT 04/02/24 05:56 IMPRESSION: 1. Small bowel obstruction with transition point in right abdomen. Small Bowel X-Ray 04/04/24 10:19 IMPRESSION: 1. Dilated small bowel with contrast remaining in the proximal small bowel at 2 hours, consistent with small bowel obstruction. Abdomen X-Ray 04/10/24 12:56 IMPRESSION: 1. Gas within several none dilated loops of small bowel which could represent a postoperative ileus. Labs Labs: Laboratory Results - last 24 hr 04/10/24 04/10/24 04/10/24 12:01 16:24 23:53 Sodium Potassium Chloride Carbon Dioxide Anion Gap BUN Creatinine Estim Creat Clear Calc Estimated GFR Glucose POC Capillary Glucose 268 H 221 H 231 H Lactic Acid Calcium Phosphorus Total Bilirubin AST ALT Alkaline Phosphatase Total Protein Albumin 04/11/24 04/11/24 05:16 06:56 Sodium 134 L Potassium 2.9 L Chloride 100 Carbon Dioxide 27 Anion Gap 7 BUN 25 H Creatinine 0.60 L Estim Creat Clear Calc 63 Estimated GFR > 60 Glucose 197 H POC Capillary Glucose 230 H Lactic Acid 1.8 Calcium 8.3 L Phosphorus 3.2 Total Bilirubin 0.5 AST 28 ALT 19 Alkaline Phosphatase 84 Total Protein 6.0 L Albumin 3.0 L
[2024-04-11] MEDS: polyethylene glycoL 3350 17 GM POWD.PACK PO (09:22)
[2024-04-11] MEDS: KCL 40 MEQ/WATER 100 ML 100 ML 25 ML IVPB ×3 (09:22→17:34)
[2024-04-11] MEDS: ENOXAPARIN 40 MG/0.4 ML SYRINGE SUB-Q (09:23)
[2024-04-11 09:44] LABS: Large Platelets Present; Microcytosis 1+ (NORMAL); Platelet Estimate Adequate (Adequate)
[2024-04-11 09:45] LABS: Giant Platelets Present; Schistocytes None Seen
[2024-04-11 09:46] LABS: Atypical Lymphocytes Present
--- NOTE | 2024-04-11 09:52 | PCNFU ---
Nutrition Follow-Up Complete: Inadequate oral intake related to altered GI function as evidenced by need for parenteral nutrition Goal: Monitoring diet orders, GI function, stool patterns, weights, labs, plan of care Follow up Sunday and Sunday Patient is progressing towards goal. We will continue current goal. Pt current nutrition is TPN at 50 ml/hr with clear liquid diet. Nutrition recommendation: advance diet as tolerated per MD orders. Last recorded weight is 64.5 kg, no new weight to report. Bowel Motility: +BM reported 04/09 Labs Reviewed: TG 211, BUN 25, Cr 0.6, Glu 197, Alb 3.0, K 2.9 Meds Noted: Miralax, NovoLog,Lantus Skin: WNL Additional Notes: Patient remains on Clinimix E 10/23 at 50 ml/hr with 20% Lipid Emulsion. TPN providing 1352 kcal and 72 gm protein. Diet order has advanced to clear liquids today with Ensure Clear TID for additional 240 kcals and 8 gm protein. If patient tolerates recommend advancing diet as tolerated and weaning TPN. Agree with diet orders. Will continue to monitor weight, labs, skin, meds, diet orders every 3 days.
[2024-04-11] MEDS: oxyCODONE/ACETAMINOPHEN (*CRX) 5-325 MG TABLET 2 TABLET PO ×2 (11:16→20:02)
[2024-04-11 12:06] LABS: Glucose Point of Care 279 mg/dl (65-105)
--- NOTE | 2024-04-11 12:37 | P.PNIM_ITS ---
Progress Note: A&P Assessment and Plan (1) Small bowel obstruction: Code(s): K56.609 - Unspecified intestinal obstruction, unspecified as to partial versus complete obstruction Status: Acute (2) Diabetes mellitus: Code(s): E11.9 - Type 2 diabetes mellitus without complications Status: Acute Plan Small bowel obstruction: Code(s): K56.609 - Unspecified intestinal obstruction, unspecified as to partial versus complete obstruction Status: Acute Assessment and Plan: 04/04 Exploratory lap with SB resection, adhesiolysis, and ileostomy TPN running, monitor electrolytes on PRN pain control Now on clear liquids per gen surgery continue TPN for now pending full establishment of oral intake Gen surgery following Acute blood loss anemia Likely resulting from surgical procedure Hemoglobin 9.5, hemoglobin 13.3 upon arrival Isat 10 IV iron 1000/1000 monitor H and H Electrolyte abnormality, resolving Hypokalemia potassium 2.9 Hypocalcemia Ca 8.1 today Hypophosphatemia 2.3 Hypoalbuminemia 3.0 Hypomagnesemia Mg 1.6 monitor and replace accordingly Hypoalbuminemia Albumin 3.0 today, upon arrival in 4.4 continue monitoring restart PO intake when cleared by gen blas Diabetes mellitus: Code(s): E11.9 - Type 2 diabetes mellitus without complications Status: Acute Assessment and Plan: 04/05 FBS 332, current has D5 in IV but plan is for PICC line for TPN 04/05 Basal glargine 15 U and low dose q 6h corrective regimen 04/06AM Blood sugar 249, TPN running, Basal glargine increased to 20 U Glucose is not uncontrolled and target increase Lantus to 25 unit, continue insulin sliding scale q.6 hour 04/07 Essential hypertension: Code(s): I10 - Essential (primary) hypertension Status: Acute Assessment and Plan: 04/05 137/58 DVT prophylaxis on Lovenox Subjective Date/time seen: 04/11/24 12:37 Interval history: Patient complained of worsening abd pain patient on clear liquid diet per gen surgery Review of Systems Review of Systems: All systems are reviewed and are negative unless stated otherwise in the HPI. All systems reviewed & are unremarkable except as noted in HPI and below ROS unobtainable: Yes unobtainable due to medical condition Exam Narrative: GENERAL: Ill-appearing in no acute distress. Well-nourished. - EYES: EOMI. Anicteric. - HENT: Moist mucous membranes. - LUNGS: Clear to auscultation bilateral ly, no wheezing, rhonchi, or rales. - CARDIOVASCULAR: Regular rate and rhyth m. No murmur. No JVD. - ABDOMEN: Soft, mild diffuse tender and non-distended. No palpable masses. Surgical wound is dry and clean, bowel sounds normoactive - EXTREMITIES: No edema. Peripheral puls es 2+. Non-tender. - NEUROLOGIC: No focal neurological defi cits. CN II-XII grossly intact. General weakness, - PSYCHIATRIC: Awake, Alert and oriented x 3. Appropriate mood and affect. - SKIN: No rashes or lesions. Warm. - LYMPH: No cervical lymphadenopathy. Const: General: no acute distress, uncomfortable (Due to abdominal pain) and average body habitus Nutritional Appearance: average body habitus Orientation/consciousness: patient oriented x3 HENMT: Head: normocephalic and atraumatic Ears: hearing grossly normal bilaterally Mouth: Yes moist mucous membranes Eyes: General: appearance normal, both eyes and all related structures Pupils: Equal, round and reactive pupils present Neck: Neck: normal visual inspection and full ROM Resp: Effort & Inspection: no respiratory distress Auscultation: clear to a uscultation bilaterally Cardio: Rate: regular rate Rhythm: regular rhythm Heart sounds: S1 n ormal heart sound present and S2 normal heart sound present Peripheral pulses: Peripheral pulses 2+ throughout GI: Inspection: distended, scar (3 vertical scars from the midline to the right mid abdomen) and no visible herniation Auscultation: Hypoactive bowel sounds present Skin: General skin exam: normal color Neuro: General: patient oriented x3, moves all extremities and no focal motor deficits Cranial nerves: Yes Equal, round and reactive pupils present Speech: normal speech Motor exam (neuro): 5/5 motor strength present throughout Extrem: General: normal to inspection and no edema Psych: Mental Status: mental status grossly normal Attitude: cooperative Insight: Good insight present (Psych) Judgement: Good judgement present (Psych) Objective Data Vital Signs Vital Signs: Vital Signs - 24 hr 04/10/24 14:56 04/10/24 14:56 04/10/24 14:00 Temperature 98.3 F Pulse Rate 78 Respiratory Rate 14 14 16 Blood Pressure 115/88 Pulse Oximetry 94 94 100 Oxygen Delivery 04/10/24 18:00 04/10/24 21:02 04/10/24 21:00 Temperature 98.3 F 97.7 F Pulse Rate 78 71 Respiratory Rate 16 16 Blood Pressure 112/82 140/54 L Pulse Oximetry 100 91 Oxygen Delivery Room Air 04/10/24 21:00 04/11/24 05:30 04/11/24 05:26 Temperature 97.0 F L Pulse Rate 71 82 94 Respiratory Rate 20 16 Blood Pressure 153/92 H 182/70 H Pulse Oximetry 91 97 100 Oxygen Delivery Room Air 04/11/24 09:18 Temperature Pulse Rate Respiratory Rate Blood Pressure Pulse Oximetry Oxygen Delivery Room Air Intake/Output Intake/Output: Intake & Output 04/08/24 04/09/24 04/10/24 04/11/24 23:59 23:59 23:59 23:59 Intake Total 2577.8 2256.2 1609.3 250 Output Total 4800 1650 Balance -2222.2 606.2 1609.3 250 Meds/Results Medications: Active Medications Generic Name Dose Route Start Last Admin Trade Name Freq PRN Reason Stop Dose Admin Dextrose 12.5 gm 04/05/24 13:22 Dextrose 50% 25 Gm/50 Ml Syringe IV PUSH PRN PRN Hypoglycemia Protocol Diphenhydramine HCl 25 mg 04/05/24 13:05 04/07/24 20:02 Diphenhydramine Hcl Inj 50 Mg/Ml Vial IV PUSH 25 mg Q4H PRN Administration Itching Enoxaparin Sodium 40 mg 04/05/24 09:00 04/11/24 09:23 Enoxaparin 40 Mg/0.4 Ml Syringe SUB-Q 40 mg DAILY SHAKILA Administration Glucagon 1 mg 04/05/24 13:22 Glucagon For Inj 1 Mg Vial IM PRN PRN Hypoglycemia Protocol Glucose 15 gm 04/05/24 13:22 Glucose Oral Gel 15 Gm Of Glucse In 37.5 Gm Tube PO PRN PRN Hypoglycemia Protocol Hydromorphone HCl 1 mg 04/04/24 21:53 04/11/24 04:44 Hydromorphone Hcl Inj (*Crx) 1 Mg/Ml Syr IV PUSH 1 mg Q2H PRN Administration Breakthrough Pain Rated 7-10 or NPO Hydromorphone HCl 0.5 mg 04/04/24 21:53 04/10/24 02:04 Hydromorphone Hcl Inj (*Crx) 1 Mg/Ml Syr IV PUSH 0.5 mg Q2H PRN Administration Breakthrough Pain Rated 4-6 or NPO Ibuprofen 800 mg in 200 mls @ 400 mls/hr 04/04/24 21:53 04/05/24 11:01 Caldolor 800 Mg/200 Ml IVPB Infused Q6H PRN Infusion Breakthrough Pain Rated 1-3 or NPO Dextrose 1,000 mls @ 100 mls/hr 04/05/24 13:22 Dextrose 5% 1,000 Ml IVPB PRN PRN Hypoglycemia Protocol Dextrose 1,000 mls @ 50 mls/hr 04/05/24 15:13 Dextrose 10% IV CONT .Q20H PRN if PN is interrupted Multivitamins 2.5 ml/ 2,005 mls @ 50 mls/hr 04/05/24 16:00 04/10/24 16:56 Multivitamins 2.5 ml/ Amino IV CONT 50 mls/hr Acids/Electrolytes/Dextrose .Q24H SHAKILA Administration Protocol Fat Emulsion Intravenous 250 mls @ 20.833 mls/hr 04/05/24 16:00 04/11/24 05:26 Lipids 20% IVPB Infused Q24H SHAKILA Infusion Potassium Chloride 100 mls @ 25 mls/hr 04/11/24 08:30 04/11/24 09:22 Kcl 40 Meq/Water 100 Ml IVPB 04/11/24 20:29 25 mls/hr Q4H SHAKILA Administration Insulin Aspart 2 - 5 units 04/05/24 18:00 04/11/24 12:13 Insulin Aspart (*Bkc) 100 Units/Ml SUB-Q 3 units Q6HR SHAKILA Administration Protocol Insulin Glargine 25 units 04/07/24 21:00 04/10/24 21:00 Insulin Glargine (*Bkc) 100 Units/Ml SUB-Q 25 units HS SHAKILA Administration Miscellaneous Information 1 each 04/10/24 00:01 04/11/24 08:19 Clinamix Needs To Be Renewed Or It Will Automatically Discontinue. XX 05/10/24 00:00 Not Given CLARIFY SHAKILA Naloxone HCl 0.1 mg 04/04/24 21:53 Naloxone Hcl 0.4 Mg/Ml Vial IV PUSH Q2M PRN Opiate Reversal Ondansetron HCl 8 mg 04/03/24 10:15 04/11/24 06:57 Ondansetron Inj 4 Mg/2 Ml Vial IV PUSH 8 mg Q6H PRN Administration Nausea And Vomiting Oxycodone/Acetaminophen 1 tablet 04/11/24 10:49 Oxycodone/Acetaminophen (*Crx) 5-325 Mg Tablet PO Q4H PRN Pain Rated 4-6 Oxycodone/Acetaminophen 2 tablet 04/11/24 10:49 04/11/24 11:16 Oxycodone/Acetaminophen (*Crx) 5-325 Mg Tablet PO 2 tablet Q4H PRN Administration Pain Rated 7-10 Phenol 1 spray 04/03/24 22:07 04/03/24 23:37 Phenol/Sod Pheno [place] [employer] (*Bkc) MUCOUS MEM 1 spray PRN PRN Administration Sore Throat Polyethylene Glycol 17 gm 04/11/24 09:00 04/11/24 09:22 Polyethylene Glycol 3350 17 Gm Powd.Pack PO 17 gm QAM SHAKILA Administration Sodium Chloride 20 ml 04/05/24 16:15 04/06/24 04:48 Central Line Flush IV PUSH 20 ml PRN PRN Administration after blood draws Sodium Chloride 10 ml 04/05/24 16:15 Central Line Flush IV PUSH PRN PRN with TPN bag changes Sodium Chloride 10 ml 04/05/24 22:00 04/11/24 05:33 Central Line Flush IV PUSH 10 ml Q8HR SHAKILA Administration Radiology Results: ITS Impressions Abdomen/Pelvis CT 04/02/24 05:56 IMPRESSION: 1. Small bowel obstruction with transition point in right abdomen. Small Bowel X-Ray 04/04/24 10:19 IMPRESSION: 1. Dilated small bowel with contrast remaining in the proximal small bowel at 2 hours, consistent with small bowel obstruction. Abdomen X-Ray 04/10/24 12:56 IMPRESSION: 1. Gas within several none dilated loops of small bowel which could represent a postoperative ileus. Labs Labs: Laboratory Results - last 24 hr 04/10/24 04/10/24 04/11/24 16:24 23:53 05:16 WBC RBC Hgb Hct MCV MCH MCHC RDW Plt Count MPV Immature Gran % (Auto) Neut % (Auto) Lymph % (Auto) [place] % (Auto) Eos % (Auto) Baso % (Auto) Lymph # (Auto) [place] # (Auto) Eos # (Auto) Baso # (Auto) Abs Immat Gran (auto) Absolute Neuts (auto) Absolute Nucleated RBC Nucleated RBC % Atypical Lymphocytes Platelet Estimate Large Platelets Giant Platelets Microcytosis Schistocytes Sodium Potassium Chloride Carbon Dioxide Anion Gap BUN Creatinine Estim Creat Clear Calc Estimated GFR Glucose POC Capillary Glucose 221 H 231 H 230 H Lactic Acid Calcium Phosphorus Total Bilirubin AST ALT Alkaline Phosphatase Total Protein Albumin 04/11/24 04/11/24 06:56 11:58 WBC 9.9 RBC 3.18 L Hgb 9.6 L Hct 28.9 L MCV 90.9 MCH 30.2 MCHC 33.2 RDW 13.5 Plt Count 267 MPV 10.9 H Immature Gran % (Auto) 6.0 H Neut % (Auto) 54.5 Lymph % (Auto) 20.1 [place] % (Auto) 11.1 H Eos % (Auto) 7.6 H Baso % (Auto) 0.7 Lymph # (Auto) 1.99 [place] # (Auto) 1.1 H Eos # (Auto) 0.8 H Baso # (Auto) 0.1 Abs Immat Gran (auto) 0.59 H Absolute Neuts (auto) 5.4 Absolute Nucleated RBC 0.000 Nucleated RBC % 0.0 Atypical Lymphocytes Present Platelet Estimate Adequate Large Platelets Present Giant Platelets Present Microcytosis 1+ Schistocytes None seen Sodium 134 L Potassium 2.9 L Chloride 100 Carbon Dioxide 27 Anion Gap 7 BUN 25 H Creatinine 0.60 L Estim Creat Clear Calc 63 Estimated GFR > 60 Glucose 197 H POC Capillary Glucose 279 H Lactic Acid 1.8 Calcium 8.3 L Phosphorus 3.2 Total Bilirubin 0.5 AST 28 ALT 19 Alkaline Phosphatase 84 Total Protein 6.0 L Albumin 3.0 L
--- NOTE | 2024-04-11 13:15 | PC.NURSE ---
Spoke with pharmacist regarding potassium riders. Patient has 3 total bags ordered. Receiving medication through a PICC line. Clarifying if patient can receive back to back. OK per pharmacist Cedrick to run back to back.
[2024-04-11 14:00] VITALS: BP 167/75; PULSE 88; RESP 12; TEMP 36.1; O2SAT 96
[2024-04-11] MEDS: AMINO ACIDS 5%/D15W/E-LYTES/CA 2,000 ML with MULTIVITAMINS-12 INJ VIAL 1 2.5 ML, MULTIV... 50 ML IV CONT (15:49)
[2024-04-11] MEDS: FAT EMULSIONS IV 20% 250 ML 20.8 ML IVPB (15:51)
[2024-04-11] MEDS: BISACODYL 5 MG TABLET EC 10 MG PO (17:35)
[2024-04-11 18:00] VITALS: BP 156/70; PULSE 85; RESP 12; O2SAT 97
[2024-04-11 18:41] LABS: Glucose Point of Care 234 mg/dl (65-105)
[2024-04-11 21:06] VITALS: BP 168/67; PULSE 102; RESP 20; TEMP 36.4; O2SAT 98
[2024-04-11] MEDS: INSULIN GLARGINE (*BKC) 100 UNITS/ML 25 UNITS SUB-Q (21:20)
[2024-04-12 01:04] LABS: Glucose Point of Care 285 mg/dl (65-105)
[2024-04-12] MEDS: INSULIN ASPART (*BKC) 100 UNITS/ML SUB-Q ×5 (01:04→23:59)
[2024-04-12] MEDS: HYDROmorphone HCL INJ (*CRX) 1 MG/ML SYR IV PUSH ×4 (01:10→21:02)
[2024-04-12 05:38] LABS: Anion Gap 6 mmol/L (4-12); Blood Urea Nitrogen 25 mg/dL (7-17); Calcium 8.4 mg/dL (8.4-10.2); Carbon Dioxide 26 mmol/L (22-30); Chloride 99 mmol/L (98-107); Estimated CRCL calculation 63 ml/min; Estimated Glomerular Filt Rate > 60; Glucose 252 mg/dL (65-110); Phosphorus 3.5 mg/dL (2.5-4.5); Potassium 4.2 mmol/L (3.4-5.0); Sodium 131 mmol/L (137-145)
[2024-04-12] MEDS: CENTRAL LINE FLUSH 10 ML IV PUSH ×3 (05:46→21:17)
[2024-04-12 06:00] VITALS: BP 155/64; PULSE 77; RESP 18; TEMP 36.4; O2SAT 97
[2024-04-12 06:33] LABS: Glucose Point of Care 257 mg/dl (65-105)
[2024-04-12 07:59] VITALS: BP 147/74; PULSE 91; RESP 16; TEMP 35.9; O2SAT 98
--- NOTE | 2024-04-12 08:24 | P.PN_ITS ---
Progress Note: A&P Assessment and Plan (1) Protein calorie malnutrition: Code(s): E46 - Unspecified protein-calorie malnutrition Status: Acute Assessment and Plan: Patient has had extended period of decreased nutrition after her surgery and prior due to her bowel obstruction due to adhesions. She has not recovered full bowel function yet so we will continue on TPN for now. Renew the TPN today. No changes to the TPN. (2) Postoperative ileus: Code(s): K91.89 - Other postprocedural complications and disorders of digestive system; K56.7 - Ileus, unspecified Status: Acute Assessment and Plan: Slowly improving. Patient needs to get up and ambulate to a chair and work with therapy. According to nurses she has been on compliant with trying to get up with therapy. Continue supportive management. Stay on clear liquids for right now and TPN. (3) Chronic, continuous use of opioids: Code(s): F11.90 - Opioid use, unspecified, uncomplicated Status: Acute Assessment and Plan: She has decreased use of narcotics. 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 (4) Small bowel obstruction: Code(s): K56.609 - Unspecified intestinal obstruction, unspecified as to partial versus complete obstruction Status: Acute Assessment and Plan: Resolved after extensive adhesiolysis small-bowel resection. Subjective Date/time seen: 04/12/24 08:24 Interval history: Patient without any significant clinical changes overnight as per nurses. She states she has a little nauseated today but no emesis. She had a small bowel movement yesterday. She has been tolerating some clear liquids. She is still on TPN. Electrolytes look okay today. White blood cell count is normal the 9000 range. Exam GI: Other: Abdomen is soft and nondistended. Midline incision is intact without any redness or drainage. No evidence of cellulitis. Objective Data Vital Signs Vital Signs: Vital Signs - 24 hr 04/11/24 09:18 04/11/24 14:00 04/11/24 18:00 Temperature 36.1 C L Pulse Rate 88 85 Respiratory Rate 12 12 Blood Pressure 167/75 H 156/70 H Pulse Oximetry 96 97 Oxygen Delivery Room Air Fraction of Inspired Oxygen 04/11/24 21:06 04/11/24 20:00 04/12/24 06:00 Temperature 36.4 C L 36.4 C Pulse Rate 102 H 77 Respiratory Rate 20 18 Blood Pressure 168/67 H 155/64 H Pulse Oximetry 98 97 Oxygen Delivery Room Air Fraction of Inspired Oxygen 04/12/24 07:59 Temperature 35.9 C L Pulse Rate 91 Respiratory Rate 16 Blood Pressure 147/74 H Pulse Oximetry 98 Oxygen Delivery Fraction of Inspired Oxygen Intake/Output Intake/Output: Intake & Output 04/09/24 04/10/24 04/11/24 04/12/24 23:59 23:59 23:59 23:59 Intake Total 2256.2 1609.3 2034.2 Output Total 1650 Balance 606.2 1609.3 2034.2 Meds/Results Medications: Active Medications Generic Name Dose Route Start Last Admin Trade Name Freq PRN Reason Stop Dose Admin Bisacodyl 10 mg 04/11/24 18:00 04/11/24 17:35 Bisacodyl 5 Mg Tablet Ec PO 10 mg QPM SHAKILA Administration Dextrose 12.5 gm 04/05/24 13:22 Dextrose 50% 25 Gm/50 Ml Syringe IV PUSH PRN PRN Hypoglycemia Protocol Diphenhydramine HCl 25 mg 04/05/24 13:05 04/07/24 20:02 Diphenhydramine Hcl Inj 50 Mg/Ml Vial IV PUSH 25 mg Q4H PRN Administration Itching Enoxaparin Sodium 40 mg 04/05/24 09:00 04/11/24 09:23 Enoxaparin 40 Mg/0.4 Ml Syringe SUB-Q 40 mg DAILY SHAKILA Administration Glucagon 1 mg 04/05/24 13:22 Glucagon For Inj 1 Mg Vial IM PRN PRN Hypoglycemia Protocol Glucose 15 gm 04/05/24 13:22 Glucose Oral Gel 15 Gm Of Glucse In 37.5 Gm Tube PO PRN PRN Hypoglycemia Protocol Hydromorphone HCl 1 mg 04/04/24 21:53 04/12/24 03:52 Hydromorphone Hcl Inj (*Crx) 1 Mg/Ml Syr IV PUSH 1 mg Q2H PRN Administration Breakthrough Pain Rated 7-10 or NPO Hydromorphone HCl 0.5 mg 04/04/24 21:53 04/10/24 02:04 Hydromorphone Hcl Inj (*Crx) 1 Mg/Ml Syr IV PUSH 0.5 mg Q2H PRN Administration Breakthrough Pain Rated 4-6 or NPO Ibuprofen 800 mg in 200 mls @ 400 mls/hr 04/04/24 21:53 04/05/24 11:01 Caldolor 800 Mg/200 Ml IVPB Infused Q6H PRN Infusion Breakthrough Pain Rated 1-3 or NPO Dextrose 1,000 mls @ 100 mls/hr 04/05/24 13:22 Dextrose 5% 1,000 Ml IVPB PRN PRN Hypoglycemia Protocol Dextrose 1,000 mls @ 50 mls/hr 04/05/24 15:13 Dextrose 10% IV CONT .Q20H PRN if PN is interrupted Multivitamins 2.5 ml/ 2,005 mls @ 50 mls/hr 04/05/24 16:00 04/11/24 15:49 Multivitamins 2.5 ml/ Amino IV CONT 50 mls/hr Acids/Electrolytes/Dextrose .Q24H SHAKILA Administration Protocol Fat Emulsion Intravenous 250 mls @ 20.833 mls/hr 04/05/24 16:00 04/11/24 15:51 Lipids 20% IVPB 20.8 mls/hr Q24H SHAKILA Administration Insulin Aspart 2 - 5 units 04/05/24 18:00 04/12/24 05:44 Insulin Aspart (*Bkc) 100 Units/Ml SUB-Q 3 units Q6HR SHAKILA Administration Protocol Insulin Glargine 25 units 04/07/24 21:00 04/11/24 21:20 Insulin Glargine (*Bkc) 100 Units/Ml SUB-Q 25 units HS SHAKILA Administration Miscellaneous Information 1 each 04/10/24 00:01 04/11/24 08:19 Clinamix Needs To Be Renewed Or It Will Automatically Discontinue. XX 05/10/24 00:00 Not Given CLARIFY SHAKILA Naloxone HCl 0.1 mg 04/04/24 21:53 Naloxone Hcl 0.4 Mg/Ml Vial IV PUSH Q2M PRN Opiate Reversal Ondansetron HCl 8 mg 04/03/24 10:15 04/11/24 06:57 Ondansetron Inj 4 Mg/2 Ml Vial IV PUSH 8 mg Q6H PRN Administration Nausea And Vomiting Oxycodone/Acetaminophen 1 tablet 04/11/24 10:49 Oxycodone/Acetaminophen (*Crx) 5-325 Mg Tablet PO Q4H PRN Pain Rated 4-6 Oxycodone/Acetaminophen 2 tablet 04/11/24 10:49 04/11/24 20:02 Oxycodone/Acetaminophen (*Crx) 5-325 Mg Tablet PO 2 tablet Q4H PRN Administration Pain Rated 7-10 Phenol 1 spray 04/03/24 22:07 04/03/24 23:37 Phenol/Sod Pheno [place] [employer] (*Bkc) MUCOUS MEM 1 spray PRN PRN Administration Sore Throat Polyethylene Glycol 17 gm 04/11/24 09:00 04/11/24 09:22 Polyethylene Glycol 3350 17 Gm Powd.Pack PO 17 gm QAM SHAKILA Administration Sodium Chloride 20 ml 04/05/24 16:15 04/06/24 04:48 Central Line Flush IV PUSH 20 ml PRN PRN Administration after blood draws Sodium Chloride 10 ml 04/05/24 16:15 Central Line Flush IV PUSH PRN PRN with TPN bag changes Sodium Chloride 10 ml 04/05/24 22:00 04/12/24 05:46 Central Line Flush IV PUSH 10 ml Q8HR SHAKILA Administration Radiology Results: ITS Impressions Abdomen/Pelvis CT 04/02/24 05:56 IMPRESSION: 1. Small bowel obstruction with transition point in right abdomen. Small Bowel X-Ray 04/04/24 10:19 IMPRESSION: 1. Dilated small bowel with contrast remaining in the proximal small bowel at 2 hours, consistent with small bowel obstruction. Abdomen X-Ray 04/10/24 12:56 IMPRESSION: 1. Gas within several none dilated loops of small bowel which could represent a postoperative ileus. Labs Labs: Laboratory Results - last 24 hr 04/11/24 04/11/24 04/11/24 06:56 11:58 18:38 WBC 9.9 RBC 3.18 L Hgb 9.6 L Hct 28.9 L MCV 90.9 MCH 30.2 MCHC 33.2 RDW 13.5 Plt Count 267 MPV 10.9 H Immature Gran % (Auto) 6.0 H Neut % (Auto) 54.5 Lymph % (Auto) 20.1 [place] % (Auto) 11.1 H Eos % (Auto) 7.6 H Baso % (Auto) 0.7 Lymph # (Auto) 1.99 [place] # (Auto) 1.1 H Eos # (Auto) 0.8 H Baso # (Auto) 0.1 Abs Immat Gran (auto) 0.59 H Absolute Neuts (auto) 5.4 Absolute Nucleated RBC 0.000 Nucleated RBC % 0.0 Atypical Lymphocytes Present Platelet Estimate Adequate Large Platelets Present Giant Platelets Present Microcytosis 1+ Schistocytes None seen Sodium Potassium Chloride Carbon Dioxide Anion Gap BUN Creatinine Estim Creat Clear Calc Estimated GFR Glucose POC Capillary Glucose 279 H 234 H Calcium Phosphorus 04/12/24 04/12/24 04/12/24 00:57 05:17 06:29 WBC RBC Hgb Hct MCV MCH MCHC RDW Plt Count MPV Immature Gran % (Auto) Neut % (Auto) Lymph % (Auto) [place] % (Auto) Eos % (Auto) Baso % (Auto) Lymph # (Auto) [place] # (Auto) Eos # (Auto) Baso # (Auto) Abs Immat Gran (auto) Absolute Neuts (auto) Absolute Nucleated RBC Nucleated RBC % Atypical Lymphocytes Platelet Estimate Large Platelets Giant Platelets Microcytosis Schistocytes Sodium 131 L Potassium 4.2 Chloride 99 Carbon Dioxide 26 Anion Gap 6 BUN 25 H Creatinine 0.60 L Estim Creat Clear Calc 63 Estimated GFR > 60 Glucose 252 H POC Capillary Glucose 285 H 257 H Calcium 8.4 Phosphorus 3.5
[2024-04-12] MEDS: ENOXAPARIN 40 MG/0.4 ML SYRINGE SUB-Q (09:27)
[2024-04-12] MEDS: polyethylene glycoL 3350 17 GM POWD.PACK PO (09:27)
[2024-04-12] MEDS: oxyCODONE/ACETAMINOPHEN (*CRX) 5-325 MG TABLET 2 TABLET PO ×2 (09:28→18:15)
--- NOTE | 2024-04-12 10:35 | P.PNIM_ITS ---
Progress Note: A&P Assessment and Plan (1) Small bowel obstruction: Code(s): K56.609 - Unspecified intestinal obstruction, unspecified as to partial versus complete obstruction Status: Acute (2) Diabetes mellitus: Code(s): E11.9 - Type 2 diabetes mellitus without complications Status: Acute Plan Small bowel obstruction: Code(s): K56.609 - Unspecified intestinal obstruction, unspecified as to partial versus complete obstruction Status: Acute Assessment and Plan: 04/04 Exploratory lap with SB resection, adhesiolysis, and ileostomy TPN running, monitor electrolytes on PRN pain control Now on clear liquids per gen surgery continue TPN for now pending full establishment of oral intake Gen surgery following Acute blood loss anemia Likely resulting from surgical procedure Hemoglobin 9.5, hemoglobin 13.3 upon arrival Isat 10 IV iron 1000/1000 monitor H and H Electrolyte abnormality, resolving Hypokalemia potassium 4.2 Hypocalcemia Ca 8.1 today Hypophosphatemia 2.3 Hypoalbuminemia 3.0 Hypomagnesemia Mg 1.6 monitor and replace accordingly Hypoalbuminemia Albumin 3.0 today, upon arrival in 4.4 continue monitoring restart PO intake when cleared by gen blas Diabetes mellitus: Code(s): E11.9 - Type 2 diabetes mellitus without complications Status: Acute Assessment and Plan: 04/05 FBS 332, current has D5 in IV but plan is for PICC line for TPN 04/05 Basal glargine 15 U and low dose q 6h corrective regimen 04/06AM Blood sugar 249, TPN running, Basal glargine increased to 20 U Glucose is not uncontrolled and target increase Lantus to 25 unit, continue insulin sliding scale q.6 hour 04/07 Essential hypertension: Code(s): I10 - Essential (primary) hypertension Status: Acute Assessment and Plan: 04/05 137/58 DVT prophylaxis on Lovenox Subjective Date/time seen: 04/12/24 10:35 Interval history: COmfortabel at bedside, not compliant with PT/OT Patient will continue TPN today while transitioning to PO intake Review of Systems Review of Systems: All systems are reviewed and are negative unless stated otherwise in the HPI. All systems reviewed & are unremarkable except as noted in HPI and below ROS unobtainable: Yes unobtainable due to medical condition Exam Narrative: GENERAL: Ill-appearing in no acute distress. Well-nourished. - EYES: EOMI. Anicteric. - HENT: Moist mucous membranes. - LUNGS: Clear to auscultation bilateral ly, no wheezing, rhonchi, or rales. - CARDIOVASCULAR: Regular rate and rhyth m. No murmur. No JVD. - ABDOMEN: Soft, mild diffuse tender and non-distended. No palpable masses. Surgical wound is dry and clean, bowel sounds normoactive - EXTREMITIES: No edema. Peripheral puls es 2+. Non-tender. - NEUROLOGIC: No focal neurological defi cits. CN II-XII grossly intact. General weakness, - PSYCHIATRIC: Awake, Alert and oriented x 3. Appropriate mood and affect. - SKIN: No rashes or lesions. Warm. - LYMPH: No cervical lymphadenopathy. Const: General: no acute distress, uncomfortable (Due to abdominal pain) and average body habitus Nutritional Appearance: average body habitus Orientation/consciousness: patient oriented x3 HENMT: Head: normocephalic and atraumatic Ears: hearing grossly normal bilaterally Mouth: Yes moist mucous membranes Eyes: General: appearance normal, both eyes and all related structures Pupils: Equal, round and reactive pupils present Neck: Neck: normal visual inspection and full ROM Resp: Effort & Inspection: no respiratory distress Auscultation: clear to auscultation bilaterally Cardio: Rate: regular rate Rhythm: regular rhythm Heart sounds: S1 normal heart sound present and S2 normal heart sound present Peripheral pulses: Peripheral pulses 2+ throughout GI: Inspection: distended, scar (3 vertical scars from the midline to the right mid abdomen) and no visible herniation Auscultation: Hypoactive bowel sounds present Skin: General skin exam: normal color Neuro: General: patient oriented x3, moves all extremities and no focal motor deficits Cranial nerves: Yes Equal, round and reactive pupils present Speech: normal speech Motor exam (neuro): 5/5 motor strength present throughout Extrem: General: normal to inspection and no edema Psych: Mental Status: mental status grossly normal Attitude: cooperative Insight: Good insight present (Psych) Judgement: Good judgement present (Psych) Objective Data Vital Signs Vital Signs: Vital Signs - 24 hr 04/11/24 14:00 04/11/24 18:00 04/11/24 21:06 Temperature 97 F L 97.5 F L Pulse Rate 88 85 102 H Respiratory Rate 12 12 20 Blood Pressure 167/75 H 156/70 H 168/67 H Pulse Oximetry 96 97 98 Oxygen Delivery Fraction of Inspired Oxygen 04/11/24 20:00 04/12/24 06:00 04/12/24 07:59 Temperature 97.6 F 96.7 F L Pulse Rate 77 91 Respiratory Rate 18 16 Blood Pressure 155/64 H 147/74 H Pulse Oximetry 97 98 Oxygen Delivery Room Air Fraction of Inspired Oxygen 28 Intake/Output Intake/Output: Intake & Output 04/09/24 04/10/24 04/11/24 04/12/24 23:59 23:59 23:59 23:59 Intake Total 2256.2 1609.3 2034.2 Output Total 1650 Balance 606.2 1609.3 2034.2 Meds/Results Medications: Active Medications Generic Name Dose Route Start Last Admin Trade Name Freq PRN Reason Stop Dose Admin Bisacodyl 10 mg 04/11/24 18:00 04/11/24 17:35 Bisacodyl 5 Mg Tablet Ec PO 10 mg QPM SHAKILA Administration Dextrose 12.5 gm 04/05/24 13:22 Dextrose 50% 25 Gm/50 Ml Syringe IV PUSH PRN PRN Hypoglycemia Protocol Diphenhydramine HCl 25 mg 04/05/24 13:05 04/07/24 20:02 Diphenhydramine Hcl Inj 50 Mg/Ml Vial IV PUSH 25 mg Q4H PRN Administration Itching Enoxaparin Sodium 40 mg 04/05/24 09:00 04/12/24 09:27 Enoxaparin 40 Mg/0.4 Ml Syringe SUB-Q 40 mg DAILY SHAKILA Administration Glucagon 1 mg 04/05/24 13:22 Glucagon For Inj 1 Mg Vial IM PRN PRN Hypoglycemia Protocol Glucose 15 gm 04/05/24 13:22 Glucose Oral Gel 15 Gm Of Glucse In 37.5 Gm Tube PO PRN PRN Hypoglycemia Protocol Hydromorphone HCl 1 mg 04/04/24 21:53 04/12/24 03:52 Hydromorphone Hcl Inj (*Crx) 1 Mg/Ml Syr IV PUSH 1 mg Q2H PRN Administration Breakthrough Pain Rated 7-10 or NPO Hydromorphone HCl 0.5 mg 04/04/24 21:53 04/10/24 02:04 Hydromorphone Hcl Inj (*Crx) 1 Mg/Ml Syr IV PUSH 0.5 mg Q2H PRN Administration Breakthrough Pain Rated 4-6 or NPO Ibuprofen 800 mg in 200 mls @ 400 mls/hr 04/04/24 21:53 04/05/24 11:01 Caldolor 800 Mg/200 Ml IVPB Infused Q6H PRN Infusion Breakthrough Pain Rated 1-3 or NPO Dextrose 1,000 mls @ 100 mls/hr 04/05/24 13:22 Dextrose 5% 1,000 Ml IVPB PRN PRN Hypoglycemia Protocol Dextrose 1,000 mls @ 50 mls/hr 04/05/24 15:13 Dextrose 10% IV CONT .Q20H PRN if PN is interrupted Multivitamins 2.5 ml/ 2,005 mls @ 50 mls/hr 04/05/24 16:00 04/11/24 15:49 Multivitamins 2.5 ml/ Amino IV CONT 50 mls/hr Acids/Electrolytes/Dextrose .Q24H SHAKILA Administration Protocol Fat Emulsion Intravenous 250 mls @ 20.833 mls/hr 04/05/24 16:00 04/11/24 15:51 Lipids 20% IVPB 20.8 mls/hr Q24H SHAKILA Administration Insulin Aspart 2 - 5 units 04/05/24 18:00 04/12/24 05:44 Insulin Aspart (*Bkc) 100 Units/Ml SUB-Q 3 units Q6HR SHAKILA Administration Protocol Insulin Glargine 25 units 04/07/24 21:00 04/11/24 21:20 Insulin Glargine (*Bkc) 100 Units/Ml SUB-Q 25 units HS SHAKILA Administration Miscellaneous Information 1 each 04/10/24 00:01 04/12/24 10:18 Clinamix Needs To Be Renewed Or It Will Automatically Discontinue. XX 05/10/24 00:00 Not Given CLARIFY SHAKILA Naloxone HCl 0.1 mg 04/04/24 21:53 Naloxone Hcl 0.4 Mg/Ml Vial IV PUSH Q2M PRN Opiate Reversal Ondansetron HCl 8 mg 04/03/24 10:15 04/11/24 06:57 Ondansetron Inj 4 Mg/2 Ml Vial IV PUSH 8 mg Q6H PRN Administration Nausea And Vomiting Oxycodone/Acetaminophen 1 tablet 04/11/24 10:49 Oxycodone/Acetaminophen (*Crx) 5-325 Mg Tablet PO Q4H PRN Pain Rated 4-6 Oxycodone/Acetaminophen 2 tablet 04/11/24 10:49 04/12/24 09:28 Oxycodone/Acetaminophen (*Crx) 5-325 Mg Tablet PO 2 tablet Q4H PRN Administration Pain Rated 7-10 Phenol 1 spray 04/03/24 22:07 04/03/24 23:37 Phenol/Sod Pheno [employer] (*Bkc) MUCOUS MEM 1 spray PRN PRN Administration Sore Throat Polyethylene Glycol 17 gm 04/11/24 09:00 04/12/24 09:27 Polyethylene Glycol 3350 17 Gm Powd.Pack PO 17 gm QAM SHAKILA Administration Sodium Chloride 20 ml 04/05/24 16:15 04/06/24 04:48 Central Line Flush IV PUSH 20 ml PRN PRN Administration after blood draws Sodium Chloride 10 ml 04/05/24 16:15 Central Line Flush IV PUSH PRN PRN with TPN bag changes Sodium Chloride 10 ml 04/05/24 22:00 04/12/24 05:46 Central Line Flush IV PUSH 10 ml Q8HR SHAKILA Administration Radiology Results: ITS Impressions Abdomen/Pelvis CT 04/02/24 05:56 IMPRESSION: 1. Small bowel obstruction with transition point in right abdomen. Small Bowel X-Ray 04/04/24 10:19 IMPRESSION: 1. Dilated small bowel with contrast remaining in the proximal small bowel at 2 hours, consistent with small bowel obstruction. Abdomen X-Ray 04/10/24 12:56 IMPRESSION: 1. Gas within several none dilated loops of small bowel which could represent a postoperative ileus. Labs Labs: Laboratory Results - last 24 hr 04/11/24 04/11/24 04/12/24 11:58 18:38 00:57 Sodium Potassium Chloride Carbon Dioxide Anion Gap BUN Creatinine Estim Creat Clear Calc Estimated GFR Glucose POC Capillary Glucose 279 H 234 H 285 H Calcium Phosphorus 04/12/24 04/12/24 05:17 06:29 Sodium 131 L Potassium 4.2 Chloride 99 Carbon Dioxide 26 Anion Gap 6 BUN 25 H Creatinine 0.60 L Estim Creat Clear Calc 63 Estimated GFR > 60 Glucose 252 H POC Capillary Glucose 257 H Calcium 8.4 Phosphorus 3.5
[2024-04-12 12:02] LABS: Glucose Point of Care 281 mg/dl (65-105)
[2024-04-12] MEDS: AMINO ACIDS 5%/D15W/E-LYTES/CA 2,000 ML with MULTIVITAMINS-12 INJ VIAL 1 2.5 ML, MULTIV... 50 ML IV CONT (15:46)
[2024-04-12] MEDS: FAT EMULSIONS IV 20% 250 ML 20.8 ML IVPB (15:47)
[2024-04-12 15:55] VITALS: BP 165/77; PULSE 97; RESP 16; TEMP 36.5; O2SAT 97
[2024-04-12 18:07] LABS: Glucose Point of Care 244 mg/dl (65-105)
[2024-04-12] MEDS: BISACODYL 5 MG TABLET EC 10 MG PO (18:15)
[2024-04-12 21:00] VITALS: PULSE 97; RESP 16; O2SAT 97
[2024-04-12] MEDS: INSULIN GLARGINE (*BKC) 100 UNITS/ML 25 UNITS SUB-Q (21:02)
[2024-04-12 23:15] LABS: Triglycerides 156 mg/dL (<150)
[2024-04-13] MEDS: oxyCODONE/ACETAMINOPHEN (*CRX) 5-325 MG TABLET 2 TABLET PO ×4 (00:04→19:54)
[2024-04-13 00:07] LABS: Glucose Point of Care 289 mg/dl (65-105)
--- NOTE | 2024-04-13 01:09 | PC.NURSE ---
Daylight Savings Time For Daylight Savings Time Ending in the Fall - Clocks are moved back. For Daylight Savings Time Beginning in the Spring - Clocks are moved ahead. For [facility], the time of change occurs at 0200 hrs. Time is taken from the cafeteria food server. This entry on the patient's chart recognizes the change in time reflected during documentation. Example: 2 entries for vital signs may be charted for 0200 hrs.
[2024-04-13] MEDS: HYDROmorphone HCL INJ (*CRX) 1 MG/ML SYR IV PUSH ×5 (01:36→22:52)
[2024-04-13] MEDS: CENTRAL LINE FLUSH 10 ML IV PUSH ×3 (05:37→21:12)
[2024-04-13 05:48] LABS: Basophils Absolute Auto 0.1 K/mm3 (0.0-0.1); Basophils Percent Auto 0.6 % (0.2-1.2); Eosinophils Absolute Auto 0.6 K/mm3 (0-0.3); Eosinophils Percent Auto 5.1 % (0-4.4); Hemoglobin 9.5 g/dL (12.0-15.0); Immature Granulocyte Absolute 0.26 K/mm3 (0.00-0.031); Immature Granulocyte Percent A 2.3 % (0-0.5); Lymphocytes Percent Auto 11.6 % (18.3-44.2); Mean Corpuscular HGB Conc 32.8 g/dl (32-36); Mean Corpuscular Hemoglobin 30.1 pg (26-34); Mean Corpuscular Volume 91.8 fl (80-100); Monocytes Absolute Auto 1.2 K/mm3 (0.1-0.6); Neutrophils Absolute Auto 7.8 K/mm3 (1.3-6.7); Neutrophils Percent Auto 69.4 % (45.5-73.1); Platelet Count Result 367 k/mm3 (150-375); Red Blood Count 3.16 M/mm3 (4.2-5.4); Red Cell Distribution Width 14.6 % (11.5-14.5); White Blood Count 11.2 K/mm3 (4.5-10.0)
[2024-04-13 06:00] VITALS: BP 166/68; PULSE 89; RESP 18; TEMP 36.7; O2SAT 97
[2024-04-13 06:00] LABS: Alanine Aminotransferase 22 U/L (6-35); Alkaline Phosphatase 127 U/L (38-126); Anion Gap 9 mmol/L (4-12); Aspartate Amino Transferase 30 U/L (14-36); Bilirubin,Total 0.6 mg/dL (0.2-1.3); Blood Urea Nitrogen 24 mg/dL (7-17); Calcium 8.3 mg/dL (8.4-10.2); Carbon Dioxide 26 mmol/L (22-30); Chloride 96 mmol/L (98-107); Estimated CRCL calculation 63 ml/min; Estimated Glomerular Filt Rate > 60; Glucose 254 mg/dL (65-110); Magnesium 1.7 mg/dL (1.6-2.3); Potassium 3.9 mmol/L (3.4-5.0); Sodium 131 mmol/L (137-145)
[2024-04-13] MEDS: INSULIN ASPART (*BKC) 100 UNITS/ML SUB-Q ×3 (06:09→18:06)
[2024-04-13 07:05] LABS: Glucose Point of Care 262 mg/dl (65-105)
[2024-04-13] MEDS: polyethylene glycoL 3350 17 GM POWD.PACK PO (08:22)
[2024-04-13] MEDS: ENOXAPARIN 40 MG/0.4 ML SYRINGE SUB-Q (08:22)
--- NOTE | 2024-04-13 09:54 | PCOTNOTE ---
Attempted to see patient this am, however upon entering patient set off chair alarm with 's assist back to bed. Pt reported sitting up in chair for 22 minutes. I timed it. Pt stated she was having increased back pain. Pt had said she called for pain medicine and assist back to bed.
[2024-04-13 10:00] VITALS: BP 155/67; PULSE 96; RESP 20; TEMP 36.4; O2SAT 95
--- NOTE | 2024-04-13 11:58 | WPDPN ---
Progress Note: A&P Assessment and Plan (1) Protein calorie malnutrition: Code(s): E46 - Unspecified protein-calorie malnutrition Status: Acute Assessment and Plan: Continue TPN today. She is not taking enough p.o. in to stop the TPN. (2) Postoperative ileus: Code(s): K91.89 - Other postprocedural complications and disorders of digestive system; K56.7 - Ileus, unspecified Status: Acute Assessment and Plan: Postop ileus still present. She is passing some flatus but has not had a bowel movement for almost 2 days. Abdomen is not really distended he has some bowel sounds. She has not had any emesis or nausea. Continue supportive management. Okay to continue full liquids as tolerated. (3) Small bowel obstruction: Code(s): K56.609 - Unspecified intestinal obstruction, unspecified as to partial versus complete obstruction Status: Acute Assessment and Plan: Mechanical small bowel obstruction resolved after exploratory laparotomy and extensive adhesiolysis was small-bowel resection. Physicians, nurses, and therapists have been tried to encourage her to participate and be more ambulatory and mobile but of bed. Unfortunate she is not been very compliant with our recommendations. Subjective Date/time seen: 04/13/24 11:58 Interval history: No acute changes overnight. States she is passing flatus. Nurses state that she has not had a bowel movement the past 24hours. She has not been very compliant with working with therapy and refuses as per the nurses. She did sit up in a chair for about 30minutes earlier today but asked to be put back to bed relatively quickly. White blood cell count is slightly elevated to 10,000 today. No fever. Electrolytes are okay. Albumin is low at 3.0. She she has tolerated some liquids. She has a full liquid diet ordered but has not been interested in ordering full liquids. She does not like drinking ensures. Exam GI: Other: Abdomen is soft and only distended. Midline incision is healing well without redness or drainage. Some bowel sounds are noted. Objective Data Vital Signs Vital Signs: Vital Signs - 24 hr 04/12/24 15:55 04/12/24 21:00 04/13/24 06:00 Temperature 36.5 C 36.7 C Pulse Rate 97 97 89 Respiratory Rate 16 16 18 Blood Pressure 165/77 H 166/68 H Pulse Oximetry 97 97 97 Oxygen Delivery Room Air Fraction of Inspired Oxygen 28 04/13/24 10:00 04/13/24 08:16 Temperature 36.4 C Pulse Rate 96 Respiratory Rate 20 Blood Pressure 155/67 H Pulse Oximetry 95 Oxygen Delivery Room Air Fraction of Inspired Oxygen Intake/Output Intake/Output: Intake & Output 04/10/24 04/11/24 04/12/24 04/13/24 23:59 23:59 23:59 22:59 Intake Total 1609.3 2034.2 1567.5 120 Balance 1609.3 2034.2 1567.5 120 Meds/Results Medications: Active Medications Generic Name Dose Route Start Last Admin Trade Name Freq PRN Reason Stop Dose Admin Bisacodyl 10 mg 04/11/24 18:00 04/12/24 18:15 Bisacodyl 5 Mg Tablet Ec PO 10 mg QPM SHAKILA Administration Dextrose 12.5 gm 04/05/24 13:22 Dextrose 50% 25 Gm/50 Ml Syringe IV PUSH PRN PRN Hypoglycemia Protocol Diphenhydramine HCl 25 mg 04/05/24 13:05 04/07/24 20:02 Diphenhydramine Hcl Inj 50 Mg/Ml Vial IV PUSH 25 mg Q4H PRN Administration Itching Enoxaparin Sodium 40 mg 04/05/24 09:00 04/13/24 08:22 Enoxaparin 40 Mg/0.4 Ml Syringe SUB-Q 40 mg DAILY SHAKILA Administration Glucagon 1 mg 04/05/24 13:22 Glucagon For Inj 1 Mg Vial IM PRN PRN Hypoglycemia Protocol Glucose 15 gm 04/05/24 13:22 Glucose Oral Gel 15 Gm Of Glucse In 37.5 Gm Tube PO PRN PRN Hypoglycemia Protocol Hydromorphone HCl 1 mg 04/04/24 21:53 04/13/24 10:01 Hydromorphone Hcl Inj (*Crx) 1 Mg/Ml Syr IV PUSH 1 mg Q2H PRN Administration Breakthrough Pain Rated 7-10 or NPO Hydromorphone HCl 0.5 mg 04/04/24 21:53 04/10/24 02:04 Hydromorphone Hcl Inj (*Crx) 1 Mg/Ml Syr IV PUSH 0.5 mg Q2H PRN Administration Breakthrough Pain Rated 4-6 or NPO Ibuprofen 800 mg in 200 mls @ 400 mls/hr 04/04/24 21:53 04/05/24 11:01 Caldolor 800 Mg/200 Ml IVPB Infused Q6H PRN Infusion Breakthrough Pain Rated 1-3 or NPO Dextrose 1,000 mls @ 100 mls/hr 04/05/24 13:22 Dextrose 5% 1,000 Ml IVPB PRN PRN Hypoglycemia Protocol Dextrose 1,000 mls @ 50 mls/hr 04/05/24 15:13 Dextrose 10% IV CONT .Q20H PRN if PN is interrupted Multivitamins 2.5 ml/ 2,005 mls @ 50 mls/hr 04/05/24 16:00 04/12/24 15:46 Multivitamins 2.5 ml/ Amino IV CONT 50 mls/hr Acids/Electrolytes/Dextrose .Q24H SHAKILA Administration Protocol Fat Emulsion Intravenous 250 mls @ 20.833 mls/hr 04/05/24 16:00 04/12/24 15:47 Lipids 20% IVPB 20.8 mls/hr Q24H SHAKILA Administration Insulin Aspart 2 - 5 units 04/05/24 18:00 04/13/24 06:09 Insulin Aspart (*Bkc) 100 Units/Ml SUB-Q 3 units Q6HR SHAKILA Administration Protocol Insulin Glargine 25 units 04/07/24 21:00 04/12/24 21:02 Insulin Glargine (*Bkc) 100 Units/Ml SUB-Q 25 units HS SHAKILA Administration Miscellaneous Information 1 each 04/10/24 00:01 04/12/24 10:18 Clinamix Needs To Be Renewed Or It Will Automatically Discontinue. XX 05/10/24 00:00 Not Given CLARIFY SHAKILA Naloxone HCl 0.1 mg 04/04/24 21:53 Naloxone Hcl 0.4 Mg/Ml Vial IV PUSH Q2M PRN Opiate Reversal Ondansetron HCl 8 mg 04/03/24 10:15 04/11/24 06:57 Ondansetron Inj 4 Mg/2 Ml Vial IV PUSH 8 mg Q6H PRN Administration Nausea And Vomiting Oxycodone/Acetaminophen 1 tablet 04/11/24 10:49 Oxycodone/Acetaminophen (*Crx) 5-325 Mg Tablet PO Q4H PRN Pain Rated 4-6 Oxycodone/Acetaminophen 2 tablet 04/11/24 10:49 04/13/24 06:19 Oxycodone/Acetaminophen (*Crx) 5-325 Mg Tablet PO 2 tablet Q4H PRN Administration Pain Rated 7-10 Phenol 1 spray 04/03/24 22:07 04/03/24 23:37 Phenol/Sod Pheno [employer] (*Bkc) MUCOUS MEM 1 spray PRN PRN Administration Sore Throat Polyethylene Glycol 17 gm 04/11/24 09:00 04/13/24 08:22 Polyethylene Glycol 3350 17 Gm Powd.Pack PO 17 gm QAM SHAKILA Administration Sodium Chloride 20 ml 04/05/24 16:15 04/06/24 04:48 Central Line Flush IV PUSH 20 ml PRN PRN Administration after blood draws Sodium Chloride 10 ml 04/05/24 16:15 Central Line Flush IV PUSH PRN PRN with TPN bag changes Sodium Chloride 10 ml 04/05/24 22:00 04/13/24 05:37 Central Line Flush IV PUSH 10 ml Q8HR SHAKILA Administration Radiology Results: ITS Impressions Abdomen/Pelvis CT 04/02/24 05:56 IMPRESSION: 1. Small bowel obstruction with transition point in right abdomen. Small Bowel X-Ray 04/04/24 10:19 IMPRESSION: 1. Dilated small bowel with contrast remaining in the proximal small bowel at 2 hours, consistent with small bowel obstruction. Abdomen X-Ray 04/10/24 12:56 IMPRESSION: 1. Gas within several none dilated loops of small bowel which could represent a postoperative ileus. Labs Labs: Laboratory Results - last 24 hr 04/12/24 04/12/24 04/12/24 05:16 18:01 23:56 WBC RBC Hgb Hct MCV MCH MCHC RDW Plt Count MPV Immature Gran % (Auto) Neut % (Auto) Lymph % (Auto) [place] % (Auto) Eos % (Auto) Baso % (Auto) Lymph # (Auto) [place] # (Auto) Eos # (Auto) Baso # (Auto) Abs Immat Gran (auto) Absolute Neuts (auto) Absolute Nucleated RBC Nucleated RBC % Sodium Potassium Chloride Carbon Dioxide Anion Gap BUN Creatinine Estim Creat Clear Calc Estimated GFR Glucose POC Capillary Glucose 244 H 289 H Calcium Magnesium Total Bilirubin AST ALT Alkaline Phosphatase Total Protein Albumin Triglycerides 156 H 04/13/24 04/13/24 05:26 07:01 WBC 11.2 H RBC 3.16 L Hgb 9.5 L Hct 29.0 L MCV 91.8 MCH 30.1 MCHC 32.8 RDW 14.6 H Plt Count 367 MPV 11.0 H Immature Gran % (Auto) 2.3 H Neut % (Auto) 69.4 Lymph % (Auto) 11.6 L [place] % (Auto) 11.0 H Eos % (Auto) 5.1 H Baso % (Auto) 0.6 Lymph # (Auto) 1.30 [place] # (Auto) 1.2 H Eos # (Auto) 0.6 H Baso # (Auto) 0.1 Abs Immat Gran (auto) 0.26 H Absolute Neuts (auto) 7.8 H Absolute Nucleated RBC 0.000 Nucleated RBC % 0.0 Sodium 131 L Potassium 3.9 Chloride 96 L Carbon Dioxide 26 Anion Gap 9 BUN 24 H Creatinine 0.60 L Estim Creat Clear Calc 63 Estimated GFR > 60 Glucose 254 H POC Capillary Glucose 262 H Calcium 8.3 L Magnesium 1.7 Total Bilirubin 0.6 AST 30 ALT 22 Alkaline Phosphatase 127 H Total Protein 6.0 L Albumin 3.0 L Triglycerides
[2024-04-13 12:10] LABS: Glucose Point of Care 290 mg/dl (65-105)
--- NOTE | 2024-04-13 12:11 | PM.IMPN ---
Progress Note: A&P Assessment and Plan (1) Small bowel obstruction: Code(s): K56.609 - Unspecified intestinal obstruction, unspecified as to partial versus complete obstruction Status: Acute (2) Diabetes mellitus: Code(s): E11.9 - Type 2 diabetes mellitus without complications Status: Acute Plan Small bowel obstruction: Code(s): K56.609 - Unspecified intestinal obstruction, unspecified as to partial versus complete obstruction Status: Acute Assessment and Plan: 04/04 Exploratory lap with SB resection, adhesiolysis, and ileostomy TPN running, monitor electrolytes on PRN pain control Patient not interested in liquid diet Continue TPN and adbance diet per Gen surgery Gen surgery following Acute blood loss anemia Likely resulting from surgical procedure Hemoglobin 9.5, hemoglobin 13.3 upon arrival Isat 10 IV iron 1000/1000 monitor H and H Electrolyte abnormality, resolving Hypokalemia potassium 4.2 Hypocalcemia Ca 8.1 today Hypophosphatemia 2.3 Hypoalbuminemia 3.0 Hypomagnesemia Mg 1.7 monitor and replace accordingly Hypoalbuminemia Albumin 3.0 today, upon arrival in 4.4 continue monitoring restart PO intake when cleared by gen surgery Diabetes mellitus: Code(s): E11.9 - Type 2 diabetes mellitus without complications Status: Acute Assessment and Plan: 04/05 FBS 332, current has D5 in IV but plan is for PICC line for TPN 04/05 Basal glargine 15 U and low dose q 6h corrective regimen 04/06AM Blood sugar 249, TPN running, Basal glargine increased to 20 U Glucose is not uncontrolled and target increase Lantus to 25 unit, continue insulin sliding scale q.6 hour 04/07 Essential hypertension: Code(s): I10 - Essential (primary) hypertension Status: Acute Assessment and Plan: 04/05 137/58 DVT prophylaxis on Lovenox Subjective Date/time seen: 04/13/24 12:11 Interval history: Patient comfortable at bedside, non compliant with physical therapy Patient passing flatus, however patient not compliant with liquid diet continue to advance per gen surgery Review of Systems Review of Systems: All systems are reviewed and are negative unless stated otherwise in the HPI. All systems reviewed & are unremarkable except as noted in HPI and below ROS unobtainable: Yes unobtainable due to medical condition Exam Narrative: GENERAL: Ill-appearing in no acute distress. Well-nourished. - EYES: EOMI. Anicteric. - HENT: Moist mucous membranes. - LUNGS: Clear to auscultation bilaterally, no wheezing, rhonchi, or rales. - CARDIOVASCULAR: Regular rate and rhythm. No murmur. No JVD. - ABDOMEN: Soft, mild diffuse tender and non-distended. No palpable masses. Surgical wound is dry and clean, bowel sounds normoactive - EXTREMITIES: No edema. Peripheral pulses 2+. Non-tender. - NEUROLOGIC: No focal neurological deficits. CN II-XII grossly intact. General weakness, - PSYCHIATRIC: Awake, Alert and oriented x 3. Appropriate mood and affect. - SKIN: No rashes or lesions. Warm. - LYMPH: No cervical lymphadenopathy. Const: General: no acute distress, uncomfortable (Due to abdominal pain) and average body habitus Nutritional Appearance: average body habitus Orientation/consciousness: patient oriented x3 HENMT: Head: normocephalic and atraumatic Ears: hearing grossly normal bilaterally Mouth: Yes moist mucous membranes Eyes: General: appearance normal, both eyes and all related structures Pupils: Equal, round and reactive pupils present Neck: Neck: normal visual inspection and full ROM Resp: Effort & Inspection: no respiratory distress Auscultation: clear to auscultation bilaterally Cardio: Rate: regular rate Rhythm: regular rhythm Heart sounds: S1 normal heart sound present and S2 normal heart sound present Peripheral pulses: Peripheral pulses 2+ throughout GI: Inspection: distended, scar (3 vertical scars from the midline to the right mid abdomen) and no visible herniation Auscultation: Hypoactive bowel sounds present Skin: General skin exam: normal color Neuro: General: patient oriented x3, moves all extremities and no focal motor deficits Cranial nerves: Yes Equal, round and reactive pupils present Speech: normal speech Motor exam (neuro): 5/5 motor strength present throughout Extrem: General: normal to inspection and no edema Psych: Mental Status: mental status grossly normal Attitude: cooperative Insight: Good insight present (Psych) Judgement: Good judgement present (Psych) Objective Data Vital Signs Vital Signs: Vital Signs - 24 hr 04/12/24 15:55 04/12/24 21:00 04/13/24 06:00 Temperature 97.7 F 98.1 F Pulse Rate 97 97 89 Respiratory Rate 16 16 18 Blood Pressure 165/77 H 166/68 H Pulse Oximetry 97 97 97 Oxygen Delivery Room Air Fraction of Inspired Oxygen 28 04/13/24 10:00 04/13/24 08:16 Temperature 97.6 F Pulse Rate 96 Respiratory Rate 20 Blood Pressure 155/67 H Pulse Oximetry 95 Oxygen Delivery Room Air Fraction of Inspired Oxygen Intake/Output Intake/Output: Intake & Output 04/10/24 04/11/24 04/12/24 04/13/24 23:59 23:59 23:59 22:59 Intake Total 1609.3 2034.2 1567.5 120 Balance 1609.3 2034.2 1567.5 120 Meds/Results Medications: Active Medications Generic Name Dose Route Start Last Admin Trade Name Freq PRN Reason Stop Dose Admin Bisacodyl 10 mg 04/11/24 18:00 04/12/24 18:15 Bisacodyl 5 Mg Tablet Ec PO 10 mg QPM SHAKILA Administration Dextrose 12.5 gm 04/05/24 13:22 Dextrose 50% 25 Gm/50 Ml Syringe IV PUSH PRN PRN Hypoglycemia Protocol Diphenhydramine HCl 25 mg 04/05/24 13:05 04/07/24 20:02 Diphenhydramine Hcl Inj 50 Mg/Ml Vial IV PUSH 25 mg Q4H PRN Administration Itching Enoxaparin Sodium 40 mg 04/05/24 09:00 04/13/24 08:22 Enoxaparin 40 Mg/0.4 Ml Syringe SUB-Q 40 mg DAILY SHAKILA Administration Glucagon 1 mg 04/05/24 13:22 Glucagon For Inj 1 Mg Vial IM PRN PRN Hypoglycemia Protocol Glucose 15 gm 04/05/24 13:22 Glucose Oral Gel 15 Gm Of Glucse In 37.5 Gm Tube PO PRN PRN Hypoglycemia Protocol Hydromorphone HCl 1 mg 04/04/24 21:53 04/13/24 10:01 Hydromorphone Hcl Inj (*Crx) 1 Mg/Ml Syr IV PUSH 1 mg Q2H PRN Administration Breakthrough Pain Rated 7-10 or NPO Hydromorphone HCl 0.5 mg 04/04/24 21:53 04/10/24 02:04 Hydromorphone Hcl Inj (*Crx) 1 Mg/Ml Syr IV PUSH 0.5 mg Q2H PRN Administration Breakthrough Pain Rated 4-6 or NPO Ibuprofen 800 mg in 200 mls @ 400 mls/hr 04/04/24 21:53 04/05/24 11:01 Caldolor 800 Mg/200 Ml IVPB Infused Q6H PRN Infusion Breakthrough Pain Rated 1-3 or NPO Dextrose 1,000 mls @ 100 mls/hr 04/05/24 13:22 Dextrose 5% 1,000 Ml IVPB PRN PRN Hypoglycemia Protocol Dextrose 1,000 mls @ 50 mls/hr 04/05/24 15:13 Dextrose 10% IV CONT .Q20H PRN if PN is interrupted Multivitamins 2.5 ml/ 2,005 mls @ 50 mls/hr 04/05/24 16:00 04/12/24 15:46 Multivitamins 2.5 ml/ Amino IV CONT 50 mls/hr Acids/Electrolytes/Dextrose .Q24H SHAKILA Administration Protocol Fat Emulsion Intravenous 250 mls @ 20.833 mls/hr 04/05/24 16:00 04/12/24 15:47 Lipids 20% IVPB 20.8 mls/hr Q24H SHAKILA Administration Insulin Aspart 2 - 5 units 04/05/24 18:00 04/13/24 06:09 Insulin Aspart (*Bkc) 100 Units/Ml SUB-Q 3 units Q6HR SHAKILA Administration Protocol Insulin Glargine 25 units 04/07/24 21:00 04/12/24 21:02 Insulin Glargine (*Bkc) 100 Units/Ml SUB-Q 25 units HS SHAKILA Administration Miscellaneous Information 1 each 04/10/24 00:01 04/12/24 10:18 Clinamix Needs To Be Renewed Or It Will Automatically Discontinue. XX 05/10/24 00:00 Not Given CLARIFY SHAKILA Naloxone HCl 0.1 mg 04/04/24 21:53 Naloxone Hcl 0.4 Mg/Ml Vial IV PUSH Q2M PRN Opiate Reversal Ondansetron HCl 8 mg 04/03/24 10:15 04/11/24 06:57 Ondansetron Inj 4 Mg/2 Ml Vial IV PUSH 8 mg Q6H PRN Administration Nausea And Vomiting Oxycodone/Acetaminophen 1 tablet 04/11/24 10:49 Oxycodone/Acetaminophen (*Crx) 5-325 Mg Tablet PO Q4H PRN Pain Rated 4-6 Oxycodone/Acetaminophen 2 tablet 04/11/24 10:49 04/13/24 06:19 Oxycodone/Acetaminophen (*Crx) 5-325 Mg Tablet PO 2 tablet Q4H PRN Administration Pain Rated 7-10 Phenol 1 spray 04/03/24 22:07 04/03/24 23:37 Phenol/Sod Pheno [place] [employer] (*Bkc) MUCOUS MEM 1 spray PRN PRN Administration Sore Throat Polyethylene Glycol 17 gm 04/11/24 09:00 04/13/24 08:22 Polyethylene Glycol 3350 17 Gm Powd.Pack PO 17 gm QAM SHAKILA Administration Sodium Chloride 20 ml 04/05/24 16:15 04/06/24 04:48 Central Line Flush IV PUSH 20 ml PRN PRN Administration after blood draws Sodium Chloride 10 ml 04/05/24 16:15 Central Line Flush IV PUSH PRN PRN with TPN bag changes Sodium Chloride 10 ml 04/05/24 22:00 04/13/24 05:37 Central Line Flush IV PUSH 10 ml Q8HR SHKAILA Administration Radiology Results: ITS Impressions Abdomen/Pelvis CT 04/02/24 05:56 IMPRESSION: 1. Small bowel obstruction with transition point in right abdomen. Small Bowel X-Ray 04/04/24 10:19 IMPRESSION: 1. Dilated small bowel with contrast remaining in the proximal small bowel at 2 hours, consistent with small bowel obstruction. Abdomen X-Ray 04/10/24 12:56 IMPRESSION: 1. Gas within several none dilated loops of small bowel which could represent a postoperative ileus. Labs Labs: Laboratory Results - last 24 hr 04/12/24 04/12/24 04/12/24 05:16 18:01 23:56 WBC RBC Hgb Hct MCV MCH MCHC RDW Plt Count MPV Immature Gran % (Auto) Neut % (Auto) Lymph % (Auto) [place] % (Auto) Eos % (Auto) Baso % (Auto) Lymph # (Auto) [place] # (Auto) Eos # (Auto) Baso # (Auto) Abs Immat Gran (auto) Absolute Neuts (auto) Absolute Nucleated RBC Nucleated RBC % Sodium Potassium Chloride Carbon Dioxide Anion Gap BUN Creatinine Estim Creat Clear Calc Estimated GFR Glucose POC Capillary Glucose 244 H 289 H Calcium Magnesium Total Bilirubin AST ALT Alkaline Phosphatase Total Protein Albumin Triglycerides 156 H 04/13/24 04/13/24 04/13/24 05:26 07:01 11:59 WBC 11.2 H RBC 3.16 L Hgb 9.5 L Hct 29.0 L MCV 91.8 MCH 30.1 MCHC 32.8 RDW 14.6 H Plt Count 367 MPV 11.0 H Immature Gran % (Auto) 2.3 H Neut % (Auto) 69.4 Lymph % (Auto) 11.6 L [place] % (Auto) 11.0 H Eos % (Auto) 5.1 H Baso % (Auto) 0.6 Lymph # (Auto) 1.30 [place] # (Auto) 1.2 H Eos # (Auto) 0.6 H Baso # (Auto) 0.1 Abs Immat Gran (auto) 0.26 H Absolute Neuts (auto) 7.8 H Absolute Nucleated RBC 0.000 Nucleated RBC % 0.0 Sodium 131 L Potassium 3.9 Chloride 96 L Carbon Dioxide 26 Anion Gap 9 BUN 24 H Creatinine 0.60 L Estim Creat Clear Calc 63 Estimated GFR > 60 Glucose 254 H POC Capillary Glucose 262 H 290 H Calcium 8.3 L Magnesium 1.7 Total Bilirubin 0.6 AST 30 ALT 22 Alkaline Phosphatase 127 H Total Protein 6.0 L Albumin 3.0 L Triglycerides
[2024-04-13 14:00] VITALS: BP 134/72; PULSE 90; RESP 18; TEMP 36.2; O2SAT 97
[2024-04-13] MEDS: AMINO ACIDS 5%/D15W/E-LYTES/CA 2,000 ML with MULTIVITAMINS-12 INJ VIAL 1 2.5 ML, MULTIV... 50 ML IV CONT (15:59)
[2024-04-13] MEDS: FAT EMULSIONS IV 20% 250 ML 20.8 ML IVPB (16:00)
[2024-04-13] MEDS: MEMANTINE 5 MG TABLET PO (17:11)
[2024-04-13] MEDS: BISACODYL 5 MG TABLET EC 10 MG PO (17:11)
[2024-04-13 17:53] LABS: Glucose Point of Care 245 mg/dl (65-105)
[2024-04-13 18:00] VITALS: BP 155/83; PULSE 101; RESP 18; TEMP 36.7; O2SAT 96
--- NOTE | 2024-04-13 18:00 | PC.NURSE ---
Multiple attempts made to encourage patient to get out of bed. Spoke in detail regarding complications of not doing so. Providers also aware of patient's refusal. Patient's would turn bed alarm off and assist patient on bedpan without notifying staff.
[2024-04-13] MEDS: ALTEPLASE 2 MG VIAL (CATHFLO) IV PUSH (19:54)
[2024-04-13 20:00] VITALS: PULSE 100; RESP 16; O2SAT 97
[2024-04-13 20:28] VITALS: BP 153/84; PULSE 100; RESP 16; TEMP 36.8; O2SAT 97
[2024-04-13] MEDS: INSULIN GLARGINE (*BKC) 100 UNITS/ML 25 UNITS SUB-Q (20:36)
[2024-04-14] MEDS: oxyCODONE/ACETAMINOPHEN (*CRX) 5-325 MG TABLET 2 TABLET PO ×2 (00:30→13:45)
[2024-04-14 00:32] VITALS: BP 155/76; PULSE 96; RESP 16; TEMP 36.9; O2SAT 95
[2024-04-14] MEDS: INSULIN ASPART (*BKC) 100 UNITS/ML SUB-Q ×4 (00:45→17:26)
[2024-04-14 00:51] LABS: Glucose Point of Care 265 mg/dl (65-105)
[2024-04-14] MEDS: ONDANSETRON INJ 4 MG/2 ML VIAL 8 MG IV PUSH ×2 (00:55→08:14)
[2024-04-14] MEDS: HYDROmorphone HCL INJ (*CRX) 1 MG/ML SYR IV PUSH ×2 (03:18→05:48)
[2024-04-14 05:22] LABS: Basophils Absolute Auto 0.1 K/mm3 (0.0-0.1); Basophils Percent Auto 0.7 % (0.2-1.2); Eosinophils Absolute Auto 0.4 K/mm3 (0-0.3); Eosinophils Percent Auto 3.1 % (0-4.4); Hematocrit 27.9 % (37.0-47.0); Hemoglobin 9.2 g/dL (12.0-15.0); Immature Granulocyte Absolute 0.22 K/mm3 (0.00-0.031); Immature Granulocyte Percent A 1.8 % (0-0.5); Lymphocytes Absolute Auto 1.23 K/mm3 (0.9-3.2); Lymphocytes Percent Auto 10.2 % (18.3-44.2); Mean Corpuscular Hemoglobin 31.4 pg (26-34); Mean Corpuscular Volume 95.2 fl (80-100); Mean Platelet Volume 11.1 fl (7.4-10.4); Monocytes Absolute Auto 1.3 K/mm3 (0.1-0.6); Monocytes Percent Auto 10.4 % (2.6-8.5); Neutrophils Absolute Auto 8.9 K/mm3 (1.3-6.7); Neutrophils Percent Auto 73.8 % (45.5-73.1); Platelet Count Result 419 k/mm3 (150-375); Red Blood Count 2.93 M/mm3 (4.2-5.4); White Blood Count 12.1 K/mm3 (4.5-10.0)
[2024-04-14 05:33] LABS: INR 1.2; Prothrombin Time 15.2 Seconds (11.1-14.7)
[2024-04-14 05:34] LABS: Partial Thromboplastin Time 26.2 Seconds (22.3-36.8)
[2024-04-14 05:54] VITALS: BP 151/70; PULSE 93; RESP 16; TEMP 36.6; O2SAT 97
[2024-04-14] MEDS: CENTRAL LINE FLUSH 10 ML IV PUSH ×3 (05:59→20:36)
[2024-04-14 06:13] LABS: Glucose Point of Care 263 mg/dl (65-105)
[2024-04-14] MEDS: polyethylene glycoL 3350 17 GM POWD.PACK PO (08:06)
[2024-04-14] MEDS: amLODIPine BESYLATE 10 MG TABLET PO (08:06)
[2024-04-14] MEDS: MEMANTINE 5 MG TABLET PO (08:06)
[2024-04-14] MEDS: ENOXAPARIN 40 MG/0.4 ML SYRINGE SUB-Q (08:06)
[2024-04-14 08:11] LABS: Alanine Aminotransferase 23 U/L (6-35); Albumin Level 3.2 g/dL (3.5-5.1); Alkaline Phosphatase 133 U/L (38-126); Anion Gap 9 mmol/L (4-12); Aspartate Amino Transferase 30 U/L (14-36); Bilirubin,Total 0.6 mg/dL (0.2-1.3); Blood Urea Nitrogen 25 mg/dL (7-17); Calcium 8.6 mg/dL (8.4-10.2); Carbon Dioxide 27 mmol/L (22-30); Chloride 94 mmol/L (98-107); Estimated CRCL calculation 63 ml/min; Estimated Glomerular Filt Rate > 60; Glucose 288 mg/dL (65-110); Magnesium 1.8 mg/dL (1.6-2.3); Potassium 3.9 mmol/L (3.4-5.0); Sodium 130 mmol/L (137-145)
[2024-04-14 08:17] LABS: Transferrin 153 mg/dL (206-381)
[2024-04-14] MEDS: PREGABALIN (*CRX) 75 MG CAPSULE 300 MG PO (09:43)
[2024-04-14 10:00] VITALS: BP 145/65; PULSE 91; RESP 28; TEMP 36.3; O2SAT 96
[2024-04-14] MEDS: PROMETHAZINE HCL 25 MG/ML AMPUL 12.5 MG IV PUSH (10:10)
--- NOTE | 2024-04-14 10:23 | PCPTNOTE ---
Patient refused treatment this session. Patient reported she feels nauseous at this time and did not want to work with PT. Patient reported she has been up, ambulated to restroom, and have been sitting up in chair. RN reported gave patient stuff for nausea.
--- NOTE | 2024-04-14 10:28 | P.PNIM_ITS ---
Progress Note: A&P Assessment and Plan (1) Small bowel obstruction: Code(s): K56.609 - Unspecified intestinal obstruction, unspecified as to partial versus complete obstruction Status: Acute (2) Diabetes mellitus: Code(s): E11.9 - Type 2 diabetes mellitus without complications Status: Acute Plan Small bowel obstruction: Code(s): K56.609 - Unspecified intestinal obstruction, unspecified as to partial versus complete obstruction Status: Acute Assessment and Plan: 04/04 Exploratory lap with SB resection, adhesiolysis, and ileostomy TPN running, monitor electrolytes on PRN pain control Patient not interested in liquid diet, hopefully it improves with control her trigeminal neuralgia pain Continue TPN and advance diet per Gen surgery Gen surgery following Acute blood loss anemia Likely resulting from surgical procedure Hemoglobin 9.5, hemoglobin 13.3 upon arrival Isat 10 IV iron 1000/1000 monitor H and H Electrolyte abnormality, resolving Hypokalemia potassium 4.2 Hypocalcemia Ca 8.1 today Hypophosphatemia 2.3 Hypoalbuminemia 3.0 Hypomagnesemia Mg 1.7 monitor and replace accordingly Trigeminal neuralgia Restarted Pregabalin 300mg bid monitor Hypoalbuminemia Albumin 3.0 today, upon arrival in 4.4 continue monitoring restart PO intake when cleared by gen surgery Diabetes mellitus: Code(s): E11.9 - Type 2 diabetes mellitus without complications Status: Acute Assessment and Plan: 04/05 FBS 332, current has D5 in IV but plan is for PICC line for TPN 04/05 Basal glargine 15 U and low dose q 6h corrective regimen 04/06AM Blood sugar 249, TPN running, Basal glargine increased to 20 U Glucose is not uncontrolled and target increase Lantus to 25 unit, continue insulin sliding scale q.6 hour 04/07 Essential hypertension: Code(s): I10 - Essential (primary) hypertension Status: Acute Assessment and Plan: 04/05 137/58 DVT prophylaxis on Lovenox Awaiting resumption of po intake for discharge Subjective Date/time seen: 04/14/24 10:28 Interval history: Patient complained of pain from her trigeminal neuralgia restarted Pregabalin Review of Systems Review of Systems: All systems are reviewed and are negative unless stated otherwise in the HPI. All systems reviewed & are unremarkable except as noted in HPI and below ROS unobtainable: Yes unobtainable due to medical condition Exam 2 Narrative: GENERAL: Ill-appearing in no acute distress. Well-nourished. - EYES: EOMI. Anicteric. - HENT: Moist mucous membranes. - LUNGS: Clear to auscultation bilateral ly, no wheezing, rhonchi, or rales. - CARDIOVASCULAR: Regular rate and rhyth m. No murmur. No JVD. - ABDOMEN: Soft, mild diffuse tender and non-distended. No palpable masses. Surgical wound is dry and clean, bowel sounds normoactive - EXTREMITIES: No edema. Peripheral puls es 2+. Non-tender. - NEUROLOGIC: No focal neurological defi cits. CN II-XII grossly intact. General weakness, - PSYCHIATRIC: Awake, Alert and oriented x 3. Appropriate mood and affect. - SKIN: No rashes or lesions. Warm. - LYMPH: No cervical lymphadenopathy. Const: General: no acute distress, uncomfortable (Due to abdominal pain) and average body habitus Nutritional Appearance: average body habitus Orientation/consciousness: patient oriented x3 HENMT: Head: normocephalic and atraumatic Ears: hearing grossly normal bilaterally Mouth: Yes moist mucous membranes Eyes: General: appearance normal, both eyes and all related structures Pupils: Equal, round and reactive pupils present Neck: Neck: normal visual inspection and full ROM Resp: Effort & Inspection: no respiratory distress Auscultation: clear to auscultation bilaterally Cardio: Rate: regular rate Rhythm: regular rhythm Heart sounds: S1 normal heart sound present and S2 normal heart sound present Peripheral pulses: Peripheral pulses 2+ throughout GI: Inspection: distended, scar (3 vertical scars from the midline to the right mid abdomen) and no visible herniation Auscultation: Hypoactive bowel sounds present Skin: General skin exam: normal color Neuro: General: patient oriented x3, moves all extremities and no focal motor deficits Cranial nerves: Yes Equal, round and reactive pupils present Speech: normal speech Motor exam (neuro): 5/5 motor strength present throughout Extrem: General: normal to inspection and no edema Psych: Mental Status: mental status grossly normal Attitude: cooperative Insight: Good insight present (Psych) Judgement: Good judgement present (Psych) Objective Data Vital Signs Vital Signs: Vital Signs - 24 hr 04/13/24 14:00 04/13/24 18:00 04/13/24 20:28 Temperature 97.2 F L 98.0 F 98.3 F Pulse Rate 90 101 H 100 Respiratory Rate 18 18 16 Blood Pressure 134/72 155/83 H 153/84 H Pulse Oximetry 97 96 97 Oxygen Delivery Fraction of Inspired Oxygen 04/13/24 20:00 04/14/24 00:32 04/14/24 05:54 Temperature 98.4 F 97.8 F Pulse Rate 100 96 93 Respiratory Rate 16 16 16 Blood Pressure 155/76 H 151/70 H Pulse Oximetry 97 95 97 Oxygen Delivery Room Air Fraction of Inspired Oxygen 28 Intake/Output Intake/Output: Intake & Output 04/12/24 04/13/24 04/13/24 04/14/24 00:59 00:59 23:59 23:59 Intake Total 150 Output Total 200 Balance -50 Meds/Results Medications: Active Medications Generic Name Dose Route Start Last Admin Trade Name Freq PRN Reason Stop Dose Admin Alteplase, Recombinant 2 mg 04/13/24 18:16 04/13/24 19:54 Alteplase 2 Mg Vial (Cathflo) IV PUSH 2 mg ONCE PRN Administration Line Occlusion Amlodipine Besylate 10 mg 04/14/24 09:00 04/14/24 08:06 Amlodipine Besylate 10 Mg Tablet PO 10 mg DAILY SHAKILA Administration Bisacodyl 10 mg 04/11/24 18:00 04/13/24 17:11 Bisacodyl 5 Mg Tablet Ec PO 10 mg QPM SHAKILA Administration Dextrose 12.5 gm 04/05/24 13:22 Dextrose 50% 25 Gm/50 Ml Syringe IV PUSH PRN PRN Hypoglycemia Protocol Diphenhydramine HCl 25 mg 04/05/24 13:05 04/07/24 20:02 Diphenhydramine Hcl Inj 50 Mg/Ml Vial IV PUSH 25 mg Q4H PRN Administration Itching Enoxaparin Sodium 40 mg 04/05/24 09:00 04/14/24 08:06 Enoxaparin 40 Mg/0.4 Ml Syringe SUB-Q 40 mg DAILY SHAKILA Administration Glucagon 1 mg 04/05/24 13:22 Glucagon For Inj 1 Mg Vial IM PRN PRN Hypoglycemia Protocol Glucose 15 gm 04/05/24 13:22 Glucose Oral Gel 15 Gm Of Glucse In 37.5 Gm Tube PO PRN PRN Hypoglycemia Protocol Hydromorphone HCl 1 mg 04/04/24 21:53 04/14/24 05:48 Hydromorphone Hcl Inj (*Crx) 1 Mg/Ml Syr IV PUSH 1 mg Q2H PRN Administration Breakthrough Pain Rated 7-10 or NPO Hydromorphone HCl 0.5 mg 04/04/24 21:53 04/10/24 02:04 Hydromorphone Hcl Inj (*Crx) 1 Mg/Ml Syr IV PUSH 0.5 mg Q2H PRN Administration Breakthrough Pain Rated 4-6 or NPO Ibuprofen 800 mg in 200 mls @ 400 mls/hr 04/04/24 21:53 04/05/24 11:01 Caldolor 800 Mg/200 Ml IVPB Infused Q6H PRN Infusion Breakthrough Pain Rated 1-3 or NPO Dextrose 1,000 mls @ 100 mls/hr 04/05/24 13:22 Dextrose 5% 1,000 Ml IVPB PRN PRN Hypoglycemia Protocol Dextrose 1,000 mls @ 50 mls/hr 04/05/24 15:13 Dextrose 10% IV CONT .Q20H PRN if PN is interrupted Multivitamins 2.5 ml/ 2,005 mls @ 50 mls/hr 04/05/24 16:00 04/13/24 15:59 Multivitamins 2.5 ml/ Amino IV CONT 04/14/24 15:55 50 mls/hr Acids/Electrolytes/Dextrose .Q24H SHAKILA Administration Protocol Fat Emulsion Intravenous 250 mls @ 20.833 mls/hr 04/05/24 16:00 04/13/24 16:00 Lipids 20% IVPB 20.8 mls/hr Q24H SHAKILA Administration Multivitamins 1.25 ml/ 1,002.5 mls @ 50 mls/hr 04/14/24 16:00 Multivitamins 1.25 ml/ Amino IV CONT Acids/Electrolytes/Dextrose .Q20H3M SHAKILA Protocol Insulin Aspart 2 - 5 units 04/05/24 18:00 04/14/24 05:58 Insulin Aspart (*Bkc) 100 Units/Ml SUB-Q 3 units Q6HR SHAKILA Administration Protocol Insulin Glargine 25 units 04/07/24 21:00 04/13/24 20:36 Insulin Glargine (*Bkc) 100 Units/Ml SUB-Q 25 units HS SHAKILA Administration Memantine 5 mg 04/13/24 17:00 04/14/24 08:06 Memantine 5 Mg Tablet PO 5 mg BID SHAKILA Administration Naloxone HCl 0.1 mg 04/04/24 21:53 Naloxone Hcl 0.4 Mg/Ml Vial IV PUSH Q2M PRN Opiate Reversal Ondansetron HCl 8 mg 04/03/24 10:15 04/14/24 08:14 Ondansetron Inj 4 Mg/2 Ml Vial IV PUSH 8 mg Q6H PRN Administration Nausea And Vomiting Oxycodone/Acetaminophen 1 tablet 04/11/24 10:49 Oxycodone/Acetaminophen (*Crx) 5-325 Mg Tablet PO Q4H PRN Pain Rated 4-6 Oxycodone/Acetaminophen 2 tablet 04/11/24 10:49 04/14/24 00:30 Oxycodone/Acetaminophen (*Crx) 5-325 Mg Tablet PO 2 tablet Q4H PRN Administration Pain Rated 7-10 Phenol 1 spray 04/03/24 22:07 04/03/24 23:37 Phenol/Sod Pheno [place] (*Bkc) MUCOUS MEM 1 spray PRN PRN Administration Sore Throat Polyethylene Glycol 17 gm 04/11/24 09:00 04/14/24 08:06 Polyethylene Glycol 3350 17 Gm Powd.Pack PO 17 gm QAM SHAKILA Administration Pregabalin 300 mg 04/14/24 09:00 04/14/24 09:43 Pregabalin (*Crx) 75 Mg Capsule PO 300 mg Q12HR SHAKILA Administration Promethazine HCl 12.5 mg 04/14/24 08:23 04/14/24 10:10 Promethazine Hcl 25 Mg/Ml Ampul IV PUSH 12.5 mg Q6H PRN Administration Nausea And Vomiting Sodium Chloride 20 ml 04/05/24 16:15 04/06/24 04:48 Central Line Flush IV PUSH 20 ml PRN PRN Administration after blood draws Sodium Chloride 10 ml 04/05/24 16:15 Central Line Flush IV PUSH PRN PRN with TPN bag changes Sodium Chloride 10 ml 04/05/24 22:00 04/14/24 05:59 Central Line Flush IV PUSH 10 ml Q8HR SHAKILA Administration Radiology Results: ITS Impressions Abdomen/Pelvis CT 04/02/24 05:56 IMPRESSION: 1. Small bowel obstruction with transition point in right abdomen. Small Bowel X-Ray 04/04/24 10:19 IMPRESSION: 1. Dilated small bowel with contrast remaining in the proximal small bowel at 2 hours, consistent with small bowel obstruction. Abdomen X-Ray 04/10/24 12:56 IMPRESSION: 1. Gas within several none dilated loops of small bowel which could represent a postoperative ileus. Labs Labs: Laboratory Results - last 24 hr 04/13/24 04/13/24 04/14/24 11:59 17:50 00:26 WBC RBC Hgb Hct MCV MCH MCHC RDW Plt Count MPV Immature Gran % (Auto) Neut % (Auto) Lymph % (Auto) [place] % (Auto) Eos % (Auto) Baso % (Auto) Lymph # (Auto) [place] # (Auto) Eos # (Auto) Baso # (Auto) Abs Immat Gran (auto) Absolute Neuts (auto) Absolute Nucleated RBC Nucleated RBC % PT INR APTT Sodium Potassium Chloride Carbon Dioxide Anion Gap BUN Creatinine Estim Creat Clear Calc Estimated GFR Glucose POC Capillary Glucose 290 H 245 H 265 H Calcium Magnesium Transferrin Total Bilirubin AST ALT Alkaline Phosphatase Total Protein Albumin 04/14/24 04/14/24 04/14/24 05:15 05:56 07:24 WBC 12.1 H RBC 2.93 L Hgb 9.2 L Hct 27.9 L MCV 95.2 MCH 31.4 MCHC 33.0 RDW 15.0 H Plt Count 419 H MPV 11.1 H Immature Gran % (Auto) 1.8 H Neut % (Auto) 73.8 H Lymph % (Auto) 10.2 L [place] % (Auto) 10.4 H Eos % (Auto) 3.1 Baso % (Auto) 0.7 Lymph # (Auto) 1.23 [place] # (Auto) 1.3 H Eos # (Auto) 0.4 H Baso # (Auto) 0.1 Abs Immat Gran (auto) 0.22 H Absolute Neuts (auto) 8.9 H Absolute Nucleated RBC 0.000 Nucleated RBC % 0.0 PT 15.2 H INR 1.2 APTT 26.2 Sodium 130 L Potassium 3.9 Chloride 94 L Carbon Dioxide 27 Anion Gap 9 BUN 25 H Creatinine 0.60 L Estim Creat Clear Calc 63 Estimated GFR > 60 Glucose 288 H POC Capillary Glucose 263 H Calcium 8.6 Magnesium 1.8 Transferrin 153 L Total Bilirubin 0.6 AST 30 ALT 23 Alkaline Phosphatase 133 H Total Protein 7.0 Albumin 3.2 L
[2024-04-14 12:04] LABS: Glucose Point of Care 320 mg/dl (65-105)
[2024-04-14 13:23] LABS: Triglycerides 148 mg/dL (<150)
--- NOTE | 2024-04-14 13:55 | PCPTNOTE ---
Patient refused treatment this session due to patient feeling nauseous.
[2024-04-14 14:00] VITALS: BP 155/65; PULSE 93; RESP 24; TEMP 36.4; O2SAT 97
--- NOTE | 2024-04-14 14:51 | PM.PNGS ---
Progress Note: A&P Assessment and Plan (1) Postoperative ileus: Code(s): K91.89 - Other postprocedural complications and disorders of digestive system; K56.7 - Ileus, unspecified Status: Acute Assessment and Plan: She did have a BM last night, but she has started vomiting. She has vomited multiple times today. Will make her NPO and order NG tube placement. Continue TPN and will add low-rate maintenance IV fluids. Encouraged patient to work with therapy and try getting up to the chair a few times during the day. (2) Protein calorie malnutrition: Code(s): E46 - Unspecified protein-calorie malnutrition Status: Acute Assessment and Plan: Continue TPN (3) Small bowel obstruction: Code(s): K56.609 - Unspecified intestinal obstruction, unspecified as to partial versus complete obstruction Status: Acute Assessment and Plan: S/p exploratory laparotomy and extensive adhesiolysis with small-bowel resection. She has a prolonged ileus and has not been very mobile in the post-op period even with extensive encouragement from staff and providers. Will replace her NG tube today. May need further imaging to re-evaluate if still no improvement. Plan I have discussed the patient's case and plan of care with Dr. Friend. Subjective Subjective Date/Time Seen: 04/14/24 14:51 Patient reports: bowel movement, nausea and vomiting Interval history: Patient was advanced to full liquids. She reports not eating or drinking much. She has only had a popsicle and some water today. She reports getting up to the chair once yesterday and once again today for 30 minutes. She began vomiting yesterday and reports vomiting multiple times last night and this morning. She reports vomiting brown emesis. While I was speaking with her she vomited a moderate to large amount of bilious-appearing emesis just during our conversation. She is complaining of abdominal pain and her chronic head pain from the trigeminal neuralgia. She did have one large BM last night. No flatus or BM again yet today. Exam Const: General: no acute distress and uncomfortable GI: Inspection: incision (incision dry and jesse intact, healing well, no erythema) and other (mildly distended) GI Palp: Yes Soft to palpation, Yes Tenderness to palpation present (GI) (mild diffuse tenderness), No Guarding due to palpation present (GI) and No Rebound tenderness present Auscultation: High-pitched bowel sounds present (few high pitched hypoactive sounds) Objective Data Vital Signs Vital Signs: Vital Signs - 24 hr 04/13/24 18:00 04/13/24 20:28 04/13/24 20:00 Temperature 98.0 F 98.3 F Pulse Rate 101 H 100 100 Respiratory Rate 18 16 16 Blood Pressure 155/83 H 153/84 H Pulse Oximetry 96 97 97 Oxygen Delivery Room Air Fraction of Inspired Oxygen 28 04/14/24 00:32 04/14/24 05:54 04/14/24 10:00 Temperature 98.4 F 97.8 F 97.3 F L Pulse Rate 96 93 91 Respiratory Rate 16 16 28 H Blood Pressure 155/76 H 151/70 H 145/65 H Pulse Oximetry 95 97 96 Oxygen Delivery Fraction of Inspired Oxygen 04/14/24 08:00 04/14/24 14:00 Temperature 97.5 F L Pulse Rate 93 Respiratory Rate 24 H Blood Pressure 155/65 H Pulse Oximetry 97 Oxygen Delivery Room Air Fraction of Inspired Oxygen Intake/Output Intake/Output: Intake & Output 04/12/24 04/13/24 04/13/24 04/14/24 00:59 00:59 23:59 23:59 Intake Total 270 Output Total 500 Balance -230 Meds/Results Medications: Active Medications Generic Name Dose Route Start Last Admin Trade Name Freq PRN Reason Stop Dose Admin Alteplase, Recombinant 2 mg 04/13/24 18:16 04/13/24 19:54 Alteplase 2 Mg Vial (Cathflo) IV PUSH 2 mg ONCE PRN Administration Line Occlusion Amlodipine Besylate 10 mg 04/14/24 09:00 04/14/24 08:06 Amlodipine Besylate 10 Mg Tablet PO 10 mg DAILY SHAKILA Administration Bisacodyl 10 mg 04/11/24 18:00 04/13/24 17:11 Bisacodyl 5 Mg Tablet Ec PO 10 mg QPM SHAKILA Administration Dextrose 12.5 gm 04/05/24 13:22 Dextrose 50% 25 Gm/50 Ml Syringe IV PUSH PRN PRN Hypoglycemia Protocol Diphenhydramine HCl 25 mg 04/05/24 13:05 04/07/24 20:02 Diphenhydramine Hcl Inj 50 Mg/Ml Vial IV PUSH 25 mg Q4H PRN Administration Itching Enoxaparin Sodium 40 mg 04/05/24 09:00 04/14/24 08:06 Enoxaparin 40 Mg/0.4 Ml Syringe SUB-Q 40 mg DAILY SHAKILA Administration Glucagon 1 mg 04/05/24 13:22 Glucagon For Inj 1 Mg Vial IM PRN PRN Hypoglycemia Protocol Glucose 15 gm 04/05/24 13:22 Glucose Oral Gel 15 Gm Of Glucse In 37.5 Gm Tube PO PRN PRN Hypoglycemia Protocol Hydromorphone HCl 1 mg 04/04/24 21:53 04/14/24 05:48 Hydromorphone Hcl Inj (*Crx) 1 Mg/Ml Syr IV PUSH 1 mg Q2H PRN Administration Breakthrough Pain Rated 7-10 or NPO Hydromorphone HCl 0.5 mg 04/04/24 21:53 04/10/24 02:04 Hydromorphone Hcl Inj (*Crx) 1 Mg/Ml Syr IV PUSH 0.5 mg Q2H PRN Administration Breakthrough Pain Rated 4-6 or NPO Ibuprofen 800 mg in 200 mls @ 400 mls/hr 04/04/24 21:53 04/05/24 11:01 Caldolor 800 Mg/200 Ml IVPB Infused Q6H PRN Infusion Breakthrough Pain Rated 1-3 or NPO Dextrose 1,000 mls @ 100 mls/hr 04/05/24 13:22 Dextrose 5% 1,000 Ml IVPB PRN PRN Hypoglycemia Protocol Dextrose 1,000 mls @ 50 mls/hr 04/05/24 15:13 Dextrose 10% IV CONT .Q20H PRN if PN is interrupted Multivitamins 2.5 ml/ 2,005 mls @ 50 mls/hr 04/05/24 16:00 04/13/24 15:59 Multivitamins 2.5 ml/ Amino IV CONT 04/14/24 15:55 50 mls/hr Acids/Electrolytes/Dextrose .Q24H SHAKILA Administration Protocol Fat Emulsion Intravenous 250 mls @ 20.833 mls/hr 04/05/24 16:00 04/13/24 16:00 Lipids 20% IVPB 20.8 mls/hr Q24H SHAKILA Administration Multivitamins 1.25 ml/ 1,002.5 mls @ 50 mls/hr 04/14/24 16:00 Multivitamins 1.25 ml/ Amino IV CONT Acids/Electrolytes/Dextrose .Q20H3M [facility] Protocol Insulin Aspart 2 - 5 units 04/05/24 18:00 04/14/24 12:15 Insulin Aspart (*Bkc) 100 Units/Ml SUB-Q 4 units Q6HR SHAKILA Administration Protocol Insulin Glargine 25 units 04/07/24 21:00 04/13/24 20:36 Insulin Glargine (*Bkc) 100 Units/Ml SUB-Q 25 units HS SHAKILA Administration Memantine 5 mg 04/13/24 17:00 04/14/24 08:06 Memantine 5 Mg Tablet PO 5 mg BID SHAKILA Administration Naloxone HCl 0.1 mg 04/04/24 21:53 Naloxone Hcl 0.4 Mg/Ml Vial IV PUSH Q2M PRN Opiate Reversal Ondansetron HCl 8 mg 04/03/24 10:15 04/14/24 08:14 Ondansetron Inj 4 Mg/2 Ml Vial IV PUSH 8 mg Q6H PRN Administration Nausea And Vomiting Oxycodone/Acetaminophen 1 tablet 04/11/24 10:49 Oxycodone/Acetaminophen (*Crx) 5-325 Mg Tablet PO Q4H PRN Pain Rated 4-6 Oxycodone/Acetaminophen 2 tablet 04/11/24 10:49 04/14/24 13:45 Oxycodone/Acetaminophen (*Crx) 5-325 Mg Tablet PO 2 tablet Q4H PRN Administration Pain Rated 7-10 Phenol 1 spray 04/03/24 22:07 04/03/24 23:37 Phenol/Sod Pheno [place] [employer] (*Bkc) MUCOUS MEM 1 spray PRN PRN Administration Sore Throat Polyethylene Glycol 17 gm 04/11/24 09:00 04/14/24 08:06 Polyethylene Glycol 3350 17 Gm Powd.Pack PO 17 gm QAM SHAKILA Administration Pregabalin 300 mg 04/14/24 09:00 04/14/24 09:43 Pregabalin (*Crx) 75 Mg Capsule PO 300 mg Q12HR SHAKILA Administration Promethazine HCl 12.5 mg 04/14/24 08:23 04/14/24 10:10 Promethazine Hcl 25 Mg/Ml Ampul IV PUSH 12.5 mg Q6H PRN Administration Nausea And Vomiting Sodium Chloride 20 ml 04/05/24 16:15 04/06/24 04:48 Central Line Flush IV PUSH 20 ml PRN PRN Administration after blood draws Sodium Chloride 10 ml 04/05/24 16:15 Central Line Flush IV PUSH PRN PRN with TPN bag changes Sodium Chloride 10 ml 04/05/24 22:00 04/14/24 05:59 Central Line Flush IV PUSH 10 ml Q8HR SHAKILA Administration Radiology Results: ITS Impressions Abdomen/Pelvis CT 04/02/24 05:56 IMPRESSION: 1. Small bowel obstruction with transition point in right abdomen. Small Bowel X-Ray 04/04/24 10:19 IMPRESSION: 1. Dilated small bowel with contrast remaining in the proximal small bowel at 2 hours, consistent with small bowel obstruction. Abdomen X-Ray 04/10/24 12:56 IMPRESSION: 1. Gas within several none dilated loops of small bowel which could represent a postoperative ileus. Labs Labs: Laboratory Results - last 24 hr 04/13/24 04/14/24 04/14/24 17:50 00:26 05:15 WBC 12.1 H RBC 2.93 L Hgb 9.2 L Hct 27.9 L MCV 95.2 MCH 31.4 MCHC 33.0 RDW 15.0 H Plt Count 419 H MPV 11.1 H Immature Gran % (Auto) 1.8 H Neut % (Auto) 73.8 H Lymph % (Auto) 10.2 L [place] % (Auto) 10.4 H Eos % (Auto) 3.1 Baso % (Auto) 0.7 Lymph # (Auto) 1.23 [place] # (Auto) 1.3 H Eos # (Auto) 0.4 H Baso # (Auto) 0.1 Abs Immat Gran (auto) 0.22 H Absolute Neuts (auto) 8.9 H Absolute Nucleated RBC 0.000 Nucleated RBC % 0.0 PT 15.2 H INR 1.2 APTT 26.2 Sodium Potassium Chloride Carbon Dioxide Anion Gap BUN Creatinine Estim Creat Clear Calc Estimated GFR Glucose POC Capillary Glucose 245 H 265 H Calcium Magnesium Transferrin Total Bilirubin AST ALT Alkaline Phosphatase Total Protein Albumin Triglycerides 04/14/24 04/14/24 04/14/24 05:56 07:24 12:01 WBC RBC Hgb Hct MCV MCH MCHC RDW Plt Count MPV Immature Gran % (Auto) Neut % (Auto) Lymph % (Auto) [place] % (Auto) Eos % (Auto) Baso % (Auto) Lymph # (Auto) [place] # (Auto) Eos # (Auto) Baso # (Auto) Abs Immat Gran (auto) Absolute Neuts (auto) Absolute Nucleated RBC Nucleated RBC % PT INR APTT Sodium 130 L Potassium 3.9 Chloride 94 L Carbon Dioxide 27 Anion Gap 9 BUN 25 H Creatinine 0.60 L Estim Creat Clear Calc 63 Estimated GFR > 60 Glucose 288 H POC Capillary Glucose 263 H 320 H Calcium 8.6 Magnesium 1.8 Transferrin 153 L Total Bilirubin 0.6 AST 30 ALT 23 Alkaline Phosphatase 133 H Total Protein 7.0 Albumin 3.2 L Triglycerides 148
--- NOTE | 2024-04-14 14:57 | P.PNGS_ITS ---
Progress Note: A&P Assessment and Plan (1) Protein calorie malnutrition: Code(s): E46 - Unspecified protein-calorie malnutrition Status: Acute Assessment and Plan: Continue TPN. Await improved oral intake. (2) Postoperative ileus: Code(s): K91.89 - Other postprocedural complications and disorders of digestive system; K56.7 - Ileus, unspecified Status: Acute Assessment and Plan: Bowels moved last night but now nauseated and vomiting. Check KUB today. Will possibly start Reglan to help bowels move as long as Xray doesn't show any conerning findings. (3) Small bowel obstruction: Code(s): K56.609 - Unspecified intestinal obstruction, unspecified as to partial versus complete obstruction Status: Acute Assessment and Plan: Mechanical small bowel obstruction resolved after exploratory laparotomy and extensive adhesiolysis was small-bowel resection. Physicians, nurses, and therapists have been tried to encourage her to participate and be more ambulatory and mobile but of bed. Unfortunate she is not been very compliant with our recommendations. Subjective Subjective Date/Time Seen: 04/14/24 14:57 Interval history: Had a BM last night. Nauseated and vomited this morning. Not getting up and moving. Refusing physical therapy. Exam GI: Inspection: non-distended GI Palp: Yes Soft to palpation, Yes Tenderness to palpation present (GI) (minimal incisional), No Guarding due to palpation present (GI) and No Rebound tenderness present Percussion: Yes normal to percussion Auscultation: normal bowel sounds Objective Data Vital Signs Vital Signs: Vital Signs - 24 hr 04/13/24 18:00 04/13/24 20:28 04/13/24 20:00 Temperature 98.0 F 98.3 F Pulse Rate 101 H 100 100 Respiratory Rate 18 16 16 Blood Pressure 155/83 H 153/84 H Pulse Oximetry 96 97 97 Oxygen Delivery Room Air Fraction of Inspired Oxygen 28 04/14/24 00:32 04/14/24 05:54 04/14/24 10:00 Temperature 98.4 F 97.8 F 97.3 F L Pulse Rate 96 93 91 Respiratory Rate 16 16 28 H Blood Pressure 155/76 H 151/70 H 145/65 H Pulse Oximetry 95 97 96 Oxygen Delivery Fraction of Inspired Oxygen 04/14/24 08:00 04/14/24 14:00 Temperature 97.5 F L Pulse Rate 93 Respiratory Rate 24 H Blood Pressure 155/65 H Pulse Oximetry 97 Oxygen Delivery Room Air Fraction of Inspired Oxygen Intake/Output Intake/Output: Intake & Output 04/12/24 04/13/24 04/13/24 04/14/24 00:59 00:59 23:59 23:59 Intake Total 270 Output Total 500 Balance -230 Meds/Results Medications: Active Medications Generic Name Dose Route Start Last Admin Trade Name Freq PRN Reason Stop Dose Admin Alteplase, Recombinant 2 mg 04/13/24 18:16 04/13/24 19:54 Alteplase 2 Mg Vial (Cathflo) IV PUSH 2 mg ONCE PRN Administration Line Occlusion Amlodipine Besylate 10 mg 04/14/24 09:00 04/14/24 08:06 Amlodipine Besylate 10 Mg Tablet PO 10 mg DAILY SHAKILA Administration Bisacodyl 10 mg 04/11/24 18:00 04/13/24 17:11 Bisacodyl 5 Mg Tablet Ec PO 10 mg QPM SHAKILA Administration Dextrose 12.5 gm 04/05/24 13:22 Dextrose 50% 25 Gm/50 Ml Syringe IV PUSH PRN PRN Hypoglycemia Protocol Diphenhydramine HCl 25 mg 04/05/24 13:05 04/07/24 20:02 Diphenhydramine Hcl Inj 50 Mg/Ml Vial IV PUSH 25 mg Q4H PRN Administration Itching Enoxaparin Sodium 40 mg 04/05/24 09:00 04/14/24 08:06 Enoxaparin 40 Mg/0.4 Ml Syringe SUB-Q 40 mg DAILY SHAKILA Administration Glucagon 1 mg 04/05/24 13:22 Glucagon For Inj 1 Mg Vial IM PRN PRN Hypoglycemia Protocol Glucose 15 gm 04/05/24 13:22 Glucose Oral Gel 15 Gm Of Glucse In 37.5 Gm Tube PO PRN PRN Hypoglycemia Protocol Hydromorphone HCl 1 mg 04/04/24 21:53 04/14/24 05:48 Hydromorphone Hcl Inj (*Crx) 1 Mg/Ml Syr IV PUSH 1 mg Q2H PRN Administration Breakthrough Pain Rated 7-10 or NPO Hydromorphone HCl 0.5 mg 04/04/24 21:53 04/10/24 02:04 Hydromorphone Hcl Inj (*Crx) 1 Mg/Ml Syr IV PUSH 0.5 mg Q2H PRN Administration Breakthrough Pain Rated 4-6 or NPO Ibuprofen 800 mg in 200 mls @ 400 mls/hr 04/04/24 21:53 04/05/24 11:01 Caldolor 800 Mg/200 Ml IVPB Infused Q6H PRN Infusion Breakthrough Pain Rated 1-3 or NPO Dextrose 1,000 mls @ 100 mls/hr 04/05/24 13:22 Dextrose 5% 1,000 Ml IVPB PRN PRN Hypoglycemia Protocol Dextrose 1,000 mls @ 50 mls/hr 04/05/24 15:13 Dextrose 10% IV CONT .Q20H PRN if PN is interrupted Multivitamins 2.5 ml/ 2,005 mls @ 50 mls/hr 04/05/24 16:00 04/13/24 15:59 Multivitamins 2.5 ml/ Amino IV CONT 04/14/24 15:55 50 mls/hr Acids/Electrolytes/Dextrose .Q24H SHAKILA Administration Protocol Fat Emulsion Intravenous 250 mls @ 20.833 mls/hr 04/05/24 16:00 04/13/24 16:00 Lipids 20% IVPB 20.8 mls/hr Q24H SHAKILA Administration Multivitamins 1.25 ml/ 1,002.5 mls @ 50 mls/hr 04/14/24 16:00 Multivitamins 1.25 ml/ Amino IV CONT Acids/Electrolytes/Dextrose .Q20H3M SHAKILA Protocol Sodium Chloride 1,000 mls @ 50 mls/hr 04/14/24 14:55 Normal Saline Iv IV CONT .Q20H SHAKILA Insulin Aspart 2 - 5 units 04/05/24 18:00 04/14/24 12:15 Insulin Aspart (*Bkc) 100 Units/Ml SUB-Q 4 units Q6HR SHAKILA Administration Protocol Insulin Glargine 25 units 04/07/24 21:00 04/13/24 20:36 Insulin Glargine (*Bkc) 100 Units/Ml SUB-Q 25 units HS SHAKILA Administration Memantine 5 mg 04/13/24 17:00 04/14/24 08:06 Memantine 5 Mg Tablet PO 5 mg BID SHAKILA Administration Naloxone HCl 0.1 mg 04/04/24 21:53 Naloxone Hcl 0.4 Mg/Ml Vial IV PUSH Q2M PRN Opiate Reversal Ondansetron HCl 8 mg 04/03/24 10:15 04/14/24 08:14 Ondansetron Inj 4 Mg/2 Ml Vial IV PUSH 8 mg Q6H PRN Administration Nausea And Vomiting Oxycodone/Acetaminophen 1 tablet 04/11/24 10:49 Oxycodone/Acetaminophen (*Crx) 5-325 Mg Tablet PO Q4H PRN Pain Rated 4-6 Oxycodone/Acetaminophen 2 tablet 04/11/24 10:49 04/14/24 13:45 Oxycodone/Acetaminophen (*Crx) 5-325 Mg Tablet PO 2 tablet Q4H PRN Administration Pain Rated 7-10 Phenol 1 spray 04/03/24 22:07 04/03/24 23:37 Phenol/Sod Pheno [place] [employer] (*Bkc) MUCOUS MEM 1 spray PRN PRN Administration Sore Throat Polyethylene Glycol 17 gm 04/11/24 09:00 04/14/24 08:06 Polyethylene Glycol 3350 17 Gm Powd.Pack PO 17 gm QAM SHAKILA Administration Pregabalin 300 mg 04/14/24 09:00 04/14/24 09:43 Pregabalin (*Crx) 75 Mg Capsule PO 300 mg Q12HR SHAKILA Administration Promethazine HCl 12.5 mg 04/14/24 08:23 04/14/24 10:10 Promethazine Hcl 25 Mg/Ml Ampul IV PUSH 12.5 mg Q6H PRN Administration Nausea And Vomiting Sodium Chloride 20 ml 04/05/24 16:15 04/06/24 04:48 Central Line Flush IV PUSH 20 ml PRN PRN Administration after blood draws Sodium Chloride 10 ml 04/05/24 16:15 Central Line Flush IV PUSH PRN PRN with TPN bag changes Sodium Chloride 10 ml 04/05/24 22:00 04/14/24 05:59 Central Line Flush IV PUSH 10 ml Q8HR SHAKILA Administration Radiology Results: ITS Impressions Abdomen/Pelvis CT 04/02/24 05:56 IMPRESSION: 1. Small bowel obstruction with transition point in right abdomen. Small Bowel X-Ray 04/04/24 10:19 IMPRESSION: 1. Dilated small bowel with contrast remaining in the proximal small bowel at 2 hours, consistent with small bowel obstruction. Abdomen X-Ray 04/10/24 12:56 IMPRESSION: 1. Gas within several none dilated loops of small bowel which could represent a postoperative ileus. Labs Labs: Laboratory Results - last 24 hr 04/13/24 04/14/24 04/14/24 17:50 00:26 05:15 WBC 12.1 H RBC 2.93 L Hgb 9.2 L Hct 27.9 L MCV 95.2 MCH 31.4 MCHC 33.0 RDW 15.0 H Plt Count 419 H MPV 11.1 H Immature Gran % (Auto) 1.8 H Neut % (Auto) 73.8 H Lymph % (Auto) 10.2 L [place] % (Auto) 10.4 H Eos % (Auto) 3.1 Baso % (Auto) 0.7 Lymph # (Auto) 1.23 [place] # (Auto) 1.3 H Eos # (Auto) 0.4 H Baso # (Auto) 0.1 Abs Immat Gran (auto) 0.22 H Absolute Neuts (auto) 8.9 H Absolute Nucleated RBC 0.000 Nucleated RBC % 0.0 PT 15.2 H INR 1.2 APTT 26.2 Sodium Potassium Chloride Carbon Dioxide Anion Gap BUN Creatinine Estim Creat Clear Calc Estimated GFR Glucose POC Capillary Glucose 245 H 265 H Calcium Magnesium Transferrin Total Bilirubin AST ALT Alkaline Phosphatase Total Protein Albumin Triglycerides 04/14/24 04/14/24 04/14/24 05:56 07:24 12:01 WBC RBC Hgb Hct MCV MCH MCHC RDW Plt Count MPV Immature Gran % (Auto) Neut % (Auto) Lymph % (Auto) [place] % (Auto) Eos % (Auto) Baso % (Auto) Lymph # (Auto) [place] # (Auto) Eos # (Auto) Baso # (Auto) Abs Immat Gran (auto) Absolute Neuts (auto) Absolute Nucleated RBC Nucleated RBC % PT INR APTT Sodium 130 L Potassium 3.9 Chloride 94 L Carbon Dioxide 27 Anion Gap 9 BUN 25 H Creatinine 0.60 L Estim Creat Clear Calc 63 Estimated GFR > 60 Glucose 288 H POC Capillary Glucose 263 H 320 H Calcium 8.6 Magnesium 1.8 Transferrin 153 L Total Bilirubin 0.6 AST 30 ALT 23 Alkaline Phosphatase 133 H Total Protein 7.0 Albumin 3.2 L Triglycerides 148
[2024-04-14] MEDS: MULTIVITAMINS IV CONT (17:10)
[2024-04-14] MEDS: [UNRECOGNIZED DRUG - OTHER] IV CONT (17:10)
[2024-04-14] MEDS: FAT EMULSIONS IV 20% 250 ML 20.8 ML IVPB (17:10)
[2024-04-14] MEDS: SODIUM CHLORIDE 0.9% IV 1,000 ML 50 ML IV CONT (17:11)
[2024-04-14] MEDS: METOCLOPRAMIDE HCL INJ 10 MG/2 ML VIAL IV PUSH (17:11)
[2024-04-14 17:23] LABS: Glucose Point of Care 225 mg/dl (65-105)
[2024-04-14 17:26] VITALS: BP 122/56; PULSE 102; RESP 20; TEMP 37.1; O2SAT 96
[2024-04-14 20:00] VITALS: PULSE 97; RESP 20; O2SAT 96
[2024-04-14 20:46] LABS: Glucose Point of Care 270 mg/dl (65-105)
[2024-04-14] MEDS: INSULIN GLARGINE (*BKC) 100 UNITS/ML 25 UNITS SUB-Q (21:01)
[2024-04-14 23:28] LABS: Glucose Point of Care 245 mg/dl (65-105)
[2024-04-15 00:24] LABS: Glucose Point of Care 229 mg/dl (65-105)
[2024-04-15] MEDS: METOCLOPRAMIDE HCL INJ 10 MG/2 ML VIAL IV PUSH ×4 (00:31→17:53)
[2024-04-15] MEDS: INSULIN ASPART (*BKC) 100 UNITS/ML SUB-Q ×3 (00:35→12:52)
[2024-04-15] MEDS: PROMETHAZINE HCL 25 MG/ML AMPUL 12.5 MG IV PUSH (01:22)
[2024-04-15 05:24] LABS: Basophils Absolute Auto 0.1 K/mm3 (0.0-0.1); Basophils Percent Auto 0.5 % (0.2-1.2); Eosinophils Absolute Auto 0.5 K/mm3 (0-0.3); Eosinophils Percent Auto 4.5 % (0-4.4); Hemoglobin 9.3 g/dL (12.0-15.0); Immature Granulocyte Absolute 0.25 K/mm3 (0.00-0.031); Immature Granulocyte Percent A 2.2 % (0-0.5); Lymphocytes Absolute Auto 1.74 K/mm3 (0.9-3.2); Lymphocytes Percent Auto 15.6 % (18.3-44.2); Mean Corpuscular HGB Conc 33.2 g/dl (32-36); Mean Corpuscular Volume 93.3 fl (80-100); Mean Platelet Volume 10.4 fl (7.4-10.4); Monocytes Absolute Auto 1.4 K/mm3 (0.1-0.6); Monocytes Percent Auto 12.3 % (2.6-8.5); Neutrophils Absolute Auto 7.3 K/mm3 (1.3-6.7); Neutrophils Percent Auto 64.9 % (45.5-73.1); Platelet Count Result 502 k/mm3 (150-375); Red Cell Distribution Width 15.1 % (11.5-14.5); White Blood Count 11.2 K/mm3 (4.5-10.0)
[2024-04-15 05:35] LABS: Alanine Aminotransferase 18 U/L (6-35); Albumin Level 2.9 g/dL (3.5-5.1); Alkaline Phosphatase 137 U/L (38-126); Anion Gap 9 mmol/L (4-12); Aspartate Amino Transferase 23 U/L (14-36); Bilirubin,Total 0.5 mg/dL (0.2-1.3); Blood Urea Nitrogen 34 mg/dL (7-17); Calcium 8.3 mg/dL (8.4-10.2); Carbon Dioxide 29 mmol/L (22-30); Chloride 94 mmol/L (98-107); Estimated CRCL calculation 39 ml/min; Estimated Glomerular Filt Rate 55; Glucose 215 mg/dL (65-110); Magnesium 1.8 mg/dL (1.6-2.3); Phosphorus 4.1 mg/dL (2.5-4.5); Potassium 3.7 mmol/L (3.4-5.0); Sodium 132 mmol/L (137-145)
[2024-04-15 06:00] VITALS: BP 136/66; PULSE 101; RESP 18; TEMP 36.9; O2SAT 93
[2024-04-15 06:11] LABS: Glucose Point of Care 233 mg/dl (65-105)
[2024-04-15] MEDS: CENTRAL LINE FLUSH 10 ML IV PUSH ×3 (06:11→20:49)
--- NOTE | 2024-04-15 08:43 | PCNFU ---
Nutrition Follow-Up Complete: Inadequate oral intake related to altered GI function as evidenced by need for parenteral nutrition Monitoring diet orders, GI function, stool patterns, weights, labs, plan of care Follow up Sunday and Sunday Goal: Pt current nutrition is TPN with lipids @ 50 ml/h: 1352 kcal, 60 g protein, 1450 ml total volume. Meeting ~ 76% EER Nutrition recommendation: No new nutrition recommendations. Advance diet as medically able Last recorded weight is 62 kg. Bowel Motility: +2 BMs 04/15/24 Labs Reviewed: Hgb 9.3, Hct 28, Alb 2.9, Na 132, BUN 34, Glu 215 Meds Noted: Lovenox, insulin, miralax, reglan Skin: No pressure inuries Additional Notes: TPN continues for post op ileus, s/p small bowel resection. Tolerating. Agree with current nutrition care plan
[2024-04-15] MEDS: ENOXAPARIN 40 MG/0.4 ML SYRINGE SUB-Q (08:48)
[2024-04-15] MEDS: HYDROmorphone HCL INJ (*CRX) 1 MG/ML SYR 0.5 MG IV PUSH (08:48)
[2024-04-15] MEDS: ONDANSETRON INJ 4 MG/2 ML VIAL 8 MG IV PUSH (08:49)
[2024-04-15 10:00] VITALS: BP 115/64; PULSE 107; RESP 18; TEMP 36.4; O2SAT 97
[2024-04-15 12:33] LABS: Glucose Point of Care 249 mg/dl (65-105)
--- NOTE | 2024-04-15 12:33 | P.PNGS_ITS ---
Progress Note: A&P Assessment and Plan (1) Postoperative ileus: Code(s): K91.89 - Other postprocedural complications and disorders of digestive system; K56.7 - Ileus, unspecified Status: Acute Assessment and Plan: * Patient had a large amount of NG output once it was placed and she is feeling better today. She did have two more bowel movements, which is unusual given the amount she had out of the NG. * Will continue NG tube decompression, bowel rest, and TPN again today. * Continue Reglan * May consider a water-soluble small bowel follow through tomorrow * Encouraged ambulating at least 2-3 times per day and sitting up in the chair. She is more active today and is feeling much better. (2) Protein calorie malnutrition: Code(s): E46 - Unspecified protein-calorie malnutrition Status: Acute Assessment and Plan: * Continue TPN (3) Small bowel obstruction: Code(s): K56.609 - Unspecified intestinal obstruction, unspecified as to partial versus complete obstruction Status: Acute Assessment and Plan: * S/p exploratory laparotomy and extensive adhesiolysis with small-bowel resection. See plan above. Plan I have discussed the patient's case and plan of care with Dr. Friend. Subjective Subjective Date/Time Seen: 04/15/24 12:33 Patient reports: feels better, flatus, bowel movement (x 2 last night) and afebrile Interval history: Patient reports feeling much better today. Her nausea has improved. She had two small bowel movements last night. Per nursing, they got out almost 2 L from the NG tube after placement yesterday. She has an additional 500 cc of output in the canister now. She reports her abdominal pain is much better today. Her white blood cell count went from 12 down to 11,000. She did get up with therapy today and walked around her bed 2 times. Exam Const: General: comfortable and no acute distress Orientation/consciousness: patient oriented x3 GI: Inspection: non-distended and incision (Dry and healing well with jesse intact, no erythema) GI Palp: Yes Soft to palpation, Yes Tenderness to palpation present (GI) (Right lower quadrant and near the incision), No Guarding due to palpation present (GI), No Hernia present and No Rebound tenderness present Auscultation: Hypoactive bowel sounds present Extrem: General: no calf tenderness and no edema Objective Data Vital Signs Vital Signs: Vital Signs - 24 hr 04/14/24 14:00 04/14/24 17:26 04/14/24 20:00 Temperature 97.5 F L 98.7 F Pulse Rate 93 102 H 97 Respiratory Rate 24 H 20 20 Blood Pressure 155/65 H 122/56 L Pulse Oximetry 97 96 96 Oxygen Delivery Room Air Fraction of Inspired Oxygen 28 04/15/24 06:00 04/15/24 08:50 04/15/24 10:00 Temperature 98.5 F 97.5 F L Pulse Rate 101 H 107 H Respiratory Rate 18 18 Blood Pressure 136/66 115/64 Pulse Oximetry 93 97 Oxygen Delivery Room Air Fraction of Inspired Oxygen Intake/Output Intake/Output: Intake & Output 04/13/24 04/13/24 04/14/24 04/15/24 00:59 23:59 23:59 23:59 Intake Total 520 250 Output Total 800 Balance -280 250 Meds/Results Medications: Active Medications Generic Name Dose Route Start Last Admin Trade Name Freq PRN Reason Stop Dose Admin Alteplase, Recombinant 2 mg 04/13/24 18:16 04/13/24 19:54 Alteplase 2 Mg Vial (Cathflo) IV PUSH 2 mg ONCE PRN Administration Line Occlusion Amlodipine Besylate 10 mg 04/14/24 09:00 04/15/24 07:45 Amlodipine Besylate 10 Mg Tablet PO Not Given DAILY SHAKILA Bisacodyl 10 mg 04/11/24 18:00 04/14/24 16:03 Bisacodyl 5 Mg Tablet Ec PO Not Given QPM SHAKILA Dextrose 12.5 gm 04/05/24 13:22 Dextrose 50% 25 Gm/50 Ml Syringe IV PUSH PRN PRN Hypoglycemia Protocol Diphenhydramine HCl 25 mg 04/05/24 13:05 04/07/24 20:02 Diphenhydramine Hcl Inj 50 Mg/Ml Vial IV PUSH 25 mg Q4H PRN Administration Itching Enoxaparin Sodium 40 mg 04/05/24 09:00 04/15/24 08:48 Enoxaparin 40 Mg/0.4 Ml Syringe SUB-Q 40 mg DAILY SHAKILA Administration Glucagon 1 mg 04/05/24 13:22 Glucagon For Inj 1 Mg Vial IM PRN PRN Hypoglycemia Protocol Glucose 15 gm 04/05/24 13:22 Glucose Oral Gel 15 Gm Of Glucse In 37.5 Gm Tube PO PRN PRN Hypoglycemia Protocol Hydromorphone HCl 1 mg 04/04/24 21:53 04/14/24 05:48 Hydromorphone Hcl Inj (*Crx) 1 Mg/Ml Syr IV PUSH 1 mg Q2H PRN Administration Breakthrough Pain Rated 7-10 or NPO Hydromorphone HCl 0.5 mg 04/04/24 21:53 04/15/24 08:48 Hydromorphone Hcl Inj (*Crx) 1 Mg/Ml Syr IV PUSH 0.5 mg Q2H PRN Administration Breakthrough Pain Rated 4-6 or NPO Ibuprofen 800 mg in 200 mls @ 400 mls/hr 04/04/24 21:53 04/05/24 11:01 Caldolor 800 Mg/200 Ml IVPB Infused Q6H PRN Infusion Breakthrough Pain Rated 1-3 or NPO Dextrose 1,000 mls @ 100 mls/hr 04/05/24 13:22 Dextrose 5% 1,000 Ml IVPB PRN PRN Hypoglycemia Protocol Dextrose 1,000 mls @ 50 mls/hr 04/05/24 15:13 Dextrose 10% IV CONT .Q20H PRN if PN is interrupted Fat Emulsion Intravenous 250 mls @ 20.833 mls/hr 04/05/24 16:00 04/15/24 07:00 Lipids 20% IVPB Infused Q24H SHAKILA Infusion Multivitamins 1.25 ml/ 1,002.5 mls @ 50 mls/hr 04/14/24 16:00 04/14/24 17:10 Multivitamins 1.25 ml/ Amino IV CONT 50 mls/hr Acids/Electrolytes/Dextrose .Q20H3M SHAKILA Administration Protocol Sodium Chloride 1,000 mls @ 50 mls/hr 04/14/24 14:55 04/14/24 17:11 Normal Saline Iv IV CONT 50 mls/hr .Q20H SHAKILA Administration Insulin Aspart 2 - 5 units 04/05/24 18:00 04/15/24 06:11 Insulin Aspart (*Bkc) 100 Units/Ml SUB-Q 2 units Q6HR SHAKILA Administration Protocol Insulin Glargine 25 units 04/07/24 21:00 04/14/24 21:01 Insulin Glargine (*Bkc) 100 Units/Ml SUB-Q 25 units HS SHAKILA Administration Memantine 5 mg 04/13/24 17:00 04/15/24 07:45 Memantine 5 Mg Tablet PO Not Given BID SHAKILA Metoclopramide HCl 10 mg 04/14/24 18:00 04/15/24 06:11 Metoclopramide Hcl Inj 10 Mg/2 Ml Vial IV PUSH 10 mg Q6HR SHAKILA Administration Naloxone HCl 0.1 mg 04/04/24 21:53 Naloxone Hcl 0.4 Mg/Ml Vial IV PUSH Q2M PRN Opiate Reversal Ondansetron HCl 8 mg 04/03/24 10:15 04/15/24 08:49 Ondansetron Inj 4 Mg/2 Ml Vial IV PUSH 8 mg Q6H PRN Administration Nausea And Vomiting Oxycodone/Acetaminophen 1 tablet 04/11/24 10:49 Oxycodone/Acetaminophen (*Crx) 5-325 Mg Tablet PO Q4H PRN Pain Rated 4-6 Oxycodone/Acetaminophen 2 tablet 04/11/24 10:49 04/14/24 13:45 Oxycodone/Acetaminophen (*Crx) 5-325 Mg Tablet PO 2 tablet Q4H PRN Administration Pain Rated 7-10 Phenol 1 spray 04/03/24 22:07 04/03/24 23:37 Phenol/Sod Pheno [place] (*Bkc) MUCOUS MEM 1 spray PRN PRN Administration Sore Throat Polyethylene Glycol 17 gm 04/11/24 09:00 04/15/24 07:45 Polyethylene Glycol 3350 17 Gm Powd.Pack PO Not Given QAM [facility] Pregabalin 300 mg 04/14/24 09:00 04/15/24 07:46 Pregabalin (*Crx) 75 Mg Capsule PO Not Given Q12HR [facility] Promethazine HCl 12.5 mg 04/14/24 08:23 04/15/24 01:22 Promethazine Hcl 25 Mg/Ml Ampul IV PUSH 12.5 mg Q6H PRN Administration Nausea And Vomiting Sodium Chloride 20 ml 04/05/24 16:15 04/06/24 04:48 Central Line Flush IV PUSH 20 ml PRN PRN Administration after blood draws Sodium Chloride 10 ml 04/05/24 16:15 Central Line Flush IV PUSH PRN PRN with TPN bag changes Sodium Chloride 10 ml 04/05/24 22:00 04/15/24 06:11 Central Line Flush IV PUSH 10 ml Q8HR SHAKILA Administration Radiology Results: ITS Impressions Abdomen/Pelvis CT 04/02/24 05:56 IMPRESSION: 1. Small bowel obstruction with transition point in right abdomen. Small Bowel X-Ray 04/04/24 10:19 IMPRESSION: 1. Dilated small bowel with contrast remaining in the proximal small bowel at 2 hours, consistent with small bowel obstruction. Abdomen X-Ray 04/14/24 15:55 IMPRESSION: 1. Nasogastric tube tip in the stomach. Labs Labs: Laboratory Results - last 24 hr 04/14/24 04/14/24 04/14/24 07:24 17:20 20:42 WBC RBC Hgb Hct MCV MCH MCHC RDW Plt Count MPV Immature Gran % (Auto) Neut % (Auto) Lymph % (Auto) [place] % (Auto) Eos % (Auto) Baso % (Auto) Lymph # (Auto) [place] # (Auto) Eos # (Auto) Baso # (Auto) Abs Immat Gran (auto) Absolute Neuts (auto) Absolute Nucleated RBC Nucleated RBC % Sodium Potassium Chloride Carbon Dioxide Anion Gap BUN Creatinine Estim Creat Clear Calc Estimated GFR Glucose POC Capillary Glucose 225 H 270 H Calcium Phosphorus Magnesium Total Bilirubin AST ALT Alkaline Phosphatase Total Protein Albumin Triglycerides 148 04/14/24 04/15/24 04/15/24 23:20 00:22 05:14 WBC 11.2 H RBC 3.00 L Hgb 9.3 L Hct 28.0 L MCV 93.3 MCH 31.0 MCHC 33.2 RDW 15.1 H Plt Count 502 H MPV 10.4 Immature Gran % (Auto) 2.2 H Neut % (Auto) 64.9 Lymph % (Auto) 15.6 L [place] % (Auto) 12.3 H Eos % (Auto) 4.5 H Baso % (Auto) 0.5 Lymph # (Auto) 1.74 [place] # (Auto) 1.4 H Eos # (Auto) 0.5 H Baso # (Auto) 0.1 Abs Immat Gran (auto) 0.25 H Absolute Neuts (auto) 7.3 H Absolute Nucleated RBC 0.000 Nucleated RBC % 0.0 Sodium 132 L Potassium 3.7 Chloride 94 L Carbon Dioxide 29 Anion Gap 9 BUN 34 H Creatinine 1.00 Estim Creat Clear Calc 39 Estimated GFR 55 L Glucose 215 H POC Capillary Glucose 245 H 229 H Calcium 8.3 L Phosphorus 4.1 Magnesium 1.8 Total Bilirubin 0.5 AST 23 ALT 18 Alkaline Phosphatase 137 H Total Protein 6.0 L Albumin 2.9 L Triglycerides 04/15/24 06:07 WBC RBC Hgb Hct MCV MCH MCHC RDW Plt Count MPV Immature Gran % (Auto) Neut % (Auto) Lymph % (Auto) [place] % (Auto) Eos % (Auto) Baso % (Auto) Lymph # (Auto) [place] # (Auto) Eos # (Auto) Baso # (Auto) Abs Immat Gran (auto) Absolute Neuts (auto) Absolute Nucleated RBC Nucleated RBC % Sodium Potassium Chloride Carbon Dioxide Anion Gap BUN Creatinine Estim Creat Clear Calc Estimated GFR Glucose POC Capillary Glucose 233 H Calcium Phosphorus Magnesium Total Bilirubin AST ALT Alkaline Phosphatase Total Protein Albumin Triglycerides
[2024-04-15] MEDS: SODIUM CHLORIDE 0.9% IV 1,000 ML 50 ML IV CONT (12:53)
[2024-04-15 14:00] VITALS: BP 120/62; PULSE 98; RESP 18; TEMP 36.5; O2SAT 94
[2024-04-15] MEDS: [UNRECOGNIZED DRUG - OTHER] IV CONT (15:14)
[2024-04-15] MEDS: MULTIVITAMINS IV CONT (15:14)
[2024-04-15] MEDS: FAT EMULSIONS IV 20% 250 ML 20.8 ML IVPB (15:14)
--- NOTE | 2024-04-15 16:33 | PM.IMPN ---
Progress Note: A&P Assessment and Plan (1) Small bowel obstruction: Code(s): K56.609 - Unspecified intestinal obstruction, unspecified as to partial versus complete obstruction Status: Acute (2) Diabetes mellitus: Code(s): E11.9 - Type 2 diabetes mellitus without complications Status: Acute Plan Small bowel obstruction: Code(s): K56.609 - Unspecified intestinal obstruction, unspecified as to partial versus complete obstruction Status: Acute Assessment and Plan: 04/04 Exploratory lap with SB resection, adhesiolysis, and ileostomy 04/15: NG tube and NPO TPN running, monitor electrolytes on PRN pain control Patient not interested in liquid diet, hopefully it improves with control her trigeminal neuralgia pain Continue TPN and advance diet per Gen surgery Gen surgery following Acute blood loss anemia Likely resulting from surgical procedure Hemoglobin 9.5, hemoglobin 13.3 upon arrival Isat 10 IV iron 1000/1000 monitor H and H Electrolyte abnormality, resolving Hypokalemia potassium 4.2 Hypocalcemia Ca 8.1 today Hypophosphatemia 2.3 Hypoalbuminemia 3.0 Hypomagnesemia Mg 1.7 monitor and replace accordingly Trigeminal neuralgia Restarted Pregabalin 300mg bid monitor Hypoalbuminemia Albumin 3.0 today, upon arrival in 4.4 continue monitoring restart PO intake when cleared by gen surgery Diabetes mellitus: Code(s): E11.9 - Type 2 diabetes mellitus without complications Status: Acute Assessment and Plan: 04/05 FBS 332, current has D5 in IV but plan is for PICC line for TPN 04/05 Basal glargine 15 U and low dose q 6h corrective regimen 04/06AM Blood sugar 249, TPN running, Basal glargine increased to 20 U Glucose is not uncontrolled and target increase Lantus to 25 unit, continue insulin sliding scale q.6 hour 04/07 Essential hypertension: Code(s): I10 - Essential (primary) hypertension Status: Acute Assessment and Plan: 04/05 137/58 DVT prophylaxis on Lovenox Awaiting resumption of po intake for discharge Subjective Date/time seen: 04/15/24 16:33 Interval history: Currently on NG tube. Patient had 2 bowel movement.Patient reports feeling better. Review of Systems Review of Systems: All systems are reviewed and are negative unless stated otherwise in the HPI. All systems reviewed & are unremarkable except as noted in HPI and below ROS unobtainable: Yes unobtainable due to medical condition Exam Narrative: GENERAL: Ill-appearing in no acute distress. Well-nourished. - EYES: EOMI. Anicteric. - HENT: Moist mucous membranes. - LUNGS: Clear to auscultation bilaterally, no wheezing, rhonchi, or rales. - CARDIOVASCULAR: Regular rate and rhythm. No murmur. No JVD. - ABDOMEN: Soft, mild diffuse tender and non-distended. No palpable masses. Surgical wound is dry and clean, bowel sounds normoactive - EXTREMITIES: No edema. Peripheral pulses 2+. Non-tender. - NEUROLOGIC: No focal neurological deficits. CN II-XII grossly intact. General weakness, - PSYCHIATRIC: Awake, Alert and oriented x 3. Appropriate mood and affect. - SKIN: No rashes or lesions. Warm. - LYMPH: No cervical lymphadenopathy. Const: General: no acute distress, uncomfortable (Due to abdominal pain) and average body habitus Nutritional Appearance: average body habitus Orientation/consciousness: patient oriented x3 HENMT: Head: normocephalic and atraumatic Ears: hearing grossly normal bilaterally Mouth: Yes moist mucous membranes Eyes: General: appearance normal, both eyes and all related structures Pupils: Equal, round and reactive pupils present Neck: Neck: normal visual inspection and full ROM Resp: Effort & Inspection: no respiratory distress Auscultation: clear to auscultation bilaterally Cardio: Rate: regular rate Rhythm: regular rhythm Heart sounds: S1 normal heart sound present and S2 normal heart sound present Peripheral pulses: Peripheral pulses 2+ throughout GI: Inspection: distended, scar (3 vertical scars from the midline to the right mid abdomen) and no visible herniation Auscultation: Hypoactive bowel sounds present Skin: General skin exam: normal color Neuro: General: patient oriented x3, moves all extremities and no focal motor deficits Cranial nerves: Yes Equal, round and reactive pupils present Speech: normal speech Motor exam (neuro): 5/5 motor strength present throughout Extrem: General: normal to inspection and no edema Psych: Mental Status: mental status grossly normal Attitude: cooperative Insight: Good insight present (Psych) Judgement: Good judgement present (Psych) Objective Data Vital Signs Vital Signs: Vital Signs - 24 hr 04/14/24 17:26 04/14/24 20:00 04/15/24 06:00 Temperature 98.7 F 98.5 F Pulse Rate 102 H 97 101 H Respiratory Rate 20 20 18 Blood Pressure 122/56 L 136/66 Pulse Oximetry 96 96 93 Oxygen Delivery Room Air Fraction of Inspired Oxygen 28 04/15/24 08:50 04/15/24 10:00 04/15/24 14:00 Temperature 97.5 F L 97.7 F Pulse Rate 107 H 98 Respiratory Rate 18 18 Blood Pressure 115/64 120/62 Pulse Oximetry 97 94 Oxygen Delivery Room Air Fraction of Inspired Oxygen Intake/Output Intake/Output: Intake & Output 04/13/24 04/13/24 04/14/24 04/15/24 00:59 23:59 23:59 23:59 Intake Total 520 2252.5 Output Total 800 Balance -280 2252.5 Meds/Results Medications: Active Medications Generic Name Dose Route Start Last Admin Trade Name Freq PRN Reason Stop Dose Admin Alteplase, Recombinant 2 mg 04/13/24 18:16 04/13/24 19:54 Alteplase 2 Mg Vial (Cathflo) IV PUSH 2 mg ONCE PRN Administration Line Occlusion Amlodipine Besylate 10 mg 04/14/24 09:00 04/15/24 07:45 Amlodipine Besylate 10 Mg Tablet PO Not Given DAILY SHAKILA Bisacodyl 10 mg 04/11/24 18:00 04/15/24 15:15 Bisacodyl 5 Mg Tablet Ec PO Not Given QPM SHAKILA Dextrose 12.5 gm 04/05/24 13:22 Dextrose 50% 25 Gm/50 Ml Syringe IV PUSH PRN PRN Hypoglycemia Protocol Diphenhydramine HCl 25 mg 04/05/24 13:05 04/07/24 20:02 Diphenhydramine Hcl Inj 50 Mg/Ml Vial IV PUSH 25 mg Q4H PRN Administration Itching Enoxaparin Sodium 40 mg 04/05/24 09:00 04/15/24 08:48 Enoxaparin 40 Mg/0.4 Ml Syringe SUB-Q 40 mg DAILY SHAKILA Administration Glucagon 1 mg 04/05/24 13:22 Glucagon For Inj 1 Mg Vial IM PRN PRN Hypoglycemia Protocol Glucose 15 gm 04/05/24 13:22 Glucose Oral Gel 15 Gm Of Glucse In 37.5 Gm Tube PO PRN PRN Hypoglycemia Protocol Hydromorphone HCl 1 mg 04/04/24 21:53 04/14/24 05:48 Hydromorphone Hcl Inj (*Crx) 1 Mg/Ml Syr IV PUSH 1 mg Q2H PRN Administration Breakthrough Pain Rated 7-10 or NPO Hydromorphone HCl 0.5 mg 04/04/24 21:53 04/15/24 08:48 Hydromorphone Hcl Inj (*Crx) 1 Mg/Ml Syr IV PUSH 0.5 mg Q2H PRN Administration Breakthrough Pain Rated 4-6 or NPO Ibuprofen 800 mg in 200 mls @ 400 mls/hr 04/04/24 21:53 04/05/24 11:01 Caldolor 800 Mg/200 Ml IVPB Infused Q6H PRN Infusion Breakthrough Pain Rated 1-3 or NPO Dextrose 1,000 mls @ 100 mls/hr 04/05/24 13:22 Dextrose 5% 1,000 Ml IVPB PRN PRN Hypoglycemia Protocol Dextrose 1,000 mls @ 50 mls/hr 04/05/24 15:13 Dextrose 10% IV CONT .Q20H PRN if PN is interrupted Fat Emulsion Intravenous 250 mls @ 20.833 mls/hr 04/05/24 16:00 04/15/24 15:14 Lipids 20% IVPB 20.8 mls/hr Q24H SHAKILA Administration Multivitamins 1.25 ml/ 1,002.5 mls @ 50 mls/hr 04/14/24 16:00 04/15/24 15:14 Multivitamins 1.25 ml/ Amino IV CONT 50 mls/hr Acids/Electrolytes/Dextrose .Q20H3M SHAKILA Administration Protocol Sodium Chloride 1,000 mls @ 50 mls/hr 04/14/24 14:55 04/15/24 12:53 Normal Saline Iv IV CONT 50 mls/hr .Q20H SHAKILA Administration Insulin Aspart 2 - 5 units 04/05/24 18:00 04/15/24 12:52 Insulin Aspart (*Bkc) 100 Units/Ml SUB-Q 2 units Q6HR SHAKILA Administration Protocol Insulin Glargine 25 units 04/07/24 21:00 04/14/24 21:01 Insulin Glargine (*Bkc) 100 Units/Ml SUB-Q 25 units HS SHAKILA Administration Memantine 5 mg 04/13/24 17:00 04/15/24 15:15 Memantine 5 Mg Tablet PO Not Given BID SHAKILA Metoclopramide HCl 10 mg 04/14/24 18:00 04/15/24 12:52 Metoclopramide Hcl Inj 10 Mg/2 Ml Vial IV PUSH 10 mg Q6HR SHAKILA Administration Naloxone HCl 0.1 mg 04/04/24 21:53 Naloxone Hcl 0.4 Mg/Ml Vial IV PUSH Q2M PRN Opiate Reversal Ondansetron HCl 8 mg 04/03/24 10:15 04/15/24 08:49 Ondansetron Inj 4 Mg/2 Ml Vial IV PUSH 8 mg Q6H PRN Administration Nausea And Vomiting Oxycodone/Acetaminophen 1 tablet 04/11/24 10:49 Oxycodone/Acetaminophen (*Crx) 5-325 Mg Tablet PO Q4H PRN Pain Rated 4-6 Oxycodone/Acetaminophen 2 tablet 04/11/24 10:49 04/14/24 13:45 Oxycodone/Acetaminophen (*Crx) 5-325 Mg Tablet PO 2 tablet Q4H PRN Administration Pain Rated 7-10 Phenol 1 spray 04/03/24 22:07 04/03/24 23:37 Phenol/Sod Pheno [place] (*Bkc) MUCOUS MEM 1 spray PRN PRN Administration Sore Throat Polyethylene Glycol 17 gm 04/11/24 09:00 04/15/24 07:45 Polyethylene Glycol 3350 17 Gm Powd.Pack PO Not Given QAM [facility] Pregabalin 300 mg 04/14/24 09:00 04/15/24 07:46 Pregabalin (*Crx) 75 Mg Capsule PO Not Given Q12HR [facility] Promethazine HCl 12.5 mg 04/14/24 08:23 04/15/24 01:22 Promethazine Hcl 25 Mg/Ml Ampul IV PUSH 12.5 mg Q6H PRN Administration Nausea And Vomiting Sodium Chloride 20 ml 04/05/24 16:15 04/06/24 04:48 Central Line Flush IV PUSH 20 ml PRN PRN Administration after blood draws Sodium Chloride 10 ml 04/05/24 16:15 Central Line Flush IV PUSH PRN PRN with TPN bag changes Sodium Chloride 10 ml 04/05/24 22:00 04/15/24 15:14 Central Line Flush IV PUSH 10 ml Q8HR SHAKILA Administration Radiology Results: ITS Impressions Abdomen/Pelvis CT 04/02/24 05:56 IMPRESSION: 1. Small bowel obstruction with transition point in right abdomen. Small Bowel X-Ray 04/04/24 10:19 IMPRESSION: 1. Dilated small bowel with contrast remaining in the proximal small bowel at 2 hours, consistent with small bowel obstruction. Abdomen X-Ray 04/14/24 15:55 IMPRESSION: 1. Nasogastric tube tip in the stomach. Labs Labs: Laboratory Results - last 24 hr 04/14/24 04/14/24 04/14/24 17:20 20:42 23:20 WBC RBC Hgb Hct MCV MCH MCHC RDW Plt Count MPV Immature Gran % (Auto) Neut % (Auto) Lymph % (Auto) [place] % (Auto) Eos % (Auto) Baso % (Auto) Lymph # (Auto) [place] # (Auto) Eos # (Auto) Baso # (Auto) Abs Immat Gran (auto) Absolute Neuts (auto) Absolute Nucleated RBC Nucleated RBC % Sodium Potassium Chloride Carbon Dioxide Anion Gap BUN Creatinine Estim Creat Clear Calc Estimated GFR Glucose POC Capillary Glucose 225 H 270 H 245 H Calcium Phosphorus Magnesium Total Bilirubin AST ALT Alkaline Phosphatase Total Protein Albumin 04/15/24 04/15/24 04/15/24 00:22 05:14 06:07 WBC 11.2 H RBC 3.00 L Hgb 9.3 L Hct 28.0 L MCV 93.3 MCH 31.0 MCHC 33.2 RDW 15.1 H Plt Count 502 H MPV 10.4 Immature Gran % (Auto) 2.2 H Neut % (Auto) 64.9 Lymph % (Auto) 15.6 L [place] % (Auto) 12.3 H Eos % (Auto) 4.5 H Baso % (Auto) 0.5 Lymph # (Auto) 1.74 [place] # (Auto) 1.4 H Eos # (Auto) 0.5 H Baso # (Auto) 0.1 Abs Immat Gran (auto) 0.25 H Absolute Neuts (auto) 7.3 H Absolute Nucleated RBC 0.000 Nucleated RBC % 0.0 Sodium 132 L Potassium 3.7 Chloride 94 L Carbon Dioxide 29 Anion Gap 9 BUN 34 H Creatinine 1.00 Estim Creat Clear Calc 39 Estimated GFR 55 L Glucose 215 H POC Capillary Glucose 229 H 233 H Calcium 8.3 L Phosphorus 4.1 Magnesium 1.8 Total Bilirubin 0.5 AST 23 ALT 18 Alkaline Phosphatase 137 H Total Protein 6.0 L Albumin 2.9 L 04/15/24 12:30 WBC RBC Hgb Hct MCV MCH MCHC RDW Plt Count MPV Immature Gran % (Auto) Neut % (Auto) Lymph % (Auto) [place] % (Auto) Eos % (Auto) Baso % (Auto) Lymph # (Auto) [place] # (Auto) Eos # (Auto) Baso # (Auto) Abs Immat Gran (auto) Absolute Neuts (auto) Absolute Nucleated RBC Nucleated RBC % Sodium Potassium Chloride Carbon Dioxide Anion Gap BUN Creatinine Estim Creat Clear Calc Estimated GFR Glucose POC Capillary Glucose 249 H Calcium Phosphorus Magnesium Total Bilirubin AST ALT Alkaline Phosphatase Total Protein Albumin Hospitalist MIPS Advance Care Plan I have confirmed that the patient's Advanced Care Plan is present, code status is documented, or surrogate decision maker is listed in patient medical record.: Yes Medication Reconciliation I have utilized all available resources to obtain, update and review the patients current medications (includes all prescriptions, OTC, herbals, cannabis, and nutritional supplements).: Yes
[2024-04-15 17:22] LABS: Glucose Point of Care 169 mg/dl (65-105)
[2024-04-15] MEDS: HYDROmorphone HCL INJ (*CRX) 1 MG/ML SYR IV PUSH (17:55)
[2024-04-15 18:00] VITALS: BP 124/64; PULSE 100; RESP 18; TEMP 36.7; O2SAT 92
[2024-04-15 20:00] VITALS: PULSE 100; RESP 18; O2SAT 92
[2024-04-15 20:38] LABS: Glucose Point of Care 208 mg/dl (65-105)
[2024-04-15] MEDS: INSULIN GLARGINE (*BKC) 100 UNITS/ML 25 UNITS SUB-Q (20:49)
[2024-04-15] MEDS: diphenhydrAMINE HCl INJ 50 MG/ML VIAL 25 MG IV PUSH (22:16)
[2024-04-16] MEDS: INSULIN ASPART (*BKC) 100 UNITS/ML SUB-Q ×2 (00:13→23:48)
[2024-04-16] MEDS: METOCLOPRAMIDE HCL INJ 10 MG/2 ML VIAL IV PUSH ×4 (00:13→23:50)
[2024-04-16 00:17] LABS: Glucose Point of Care 206 mg/dl (65-105)
[2024-04-16] MEDS: PROMETHAZINE HCL 25 MG/ML AMPUL 12.5 MG IV PUSH (01:22)
[2024-04-16 04:57] LABS: Glucose Point of Care 154 mg/dl (65-105)
[2024-04-16] MEDS: CENTRAL LINE FLUSH 10 ML IV PUSH ×2 (05:48→20:25)
[2024-04-16 06:00] VITALS: BP 170/79; PULSE 104; RESP 18; TEMP 37; O2SAT 94
[2024-04-16] MEDS: HYDROmorphone HCL INJ (*CRX) 1 MG/ML SYR IV PUSH ×4 (06:00→23:50)
[2024-04-16 06:42] LABS: Hematocrit 28.2 % (37.0-47.0); Hemoglobin 9.3 g/dL (12.0-15.0); Mean Corpuscular Hemoglobin 30.7 pg (26-34); Mean Corpuscular Volume 93.1 fl (80-100); Mean Platelet Volume 10.7 fl (7.4-10.4); Platelet Count Result 517 k/mm3 (150-375); Red Blood Count 3.03 M/mm3 (4.2-5.4); Red Cell Distribution Width 14.7 % (11.5-14.5); White Blood Count 9.5 K/mm3 (4.5-10.0)
[2024-04-16 06:51] LABS: Triglycerides 161 mg/dL (<150)
[2024-04-16 07:10] LABS: Alanine Aminotransferase 17 U/L (6-35); Albumin Level 3.1 g/dL (3.5-5.1); Alkaline Phosphatase 119 U/L (38-126); Anion Gap 7 mmol/L (4-12); Aspartate Amino Transferase 27 U/L (14-36); Bilirubin,Total 0.4 mg/dL (0.2-1.3); Blood Urea Nitrogen 27 mg/dL (7-17); Calcium 8.4 mg/dL (8.4-10.2); Carbon Dioxide 27 mmol/L (22-30); Chloride 100 mmol/L (98-107); Estimated CRCL calculation 55 ml/min; Estimated Glomerular Filt Rate > 60; Glucose 141 mg/dL (65-110); Potassium 3.5 mmol/L (3.4-5.0); Sodium 134 mmol/L (137-145)
[2024-04-16] MEDS: ONDANSETRON INJ 4 MG/2 ML VIAL 8 MG IV PUSH (08:38)
[2024-04-16] MEDS: ENOXAPARIN 40 MG/0.4 ML SYRINGE SUB-Q (08:38)
[2024-04-16] MEDS: SODIUM CHLORIDE 0.9% IV 1,000 ML 50 ML IV CONT (08:39)
[2024-04-16 10:00] VITALS: BP 170/80; PULSE 111; RESP 18; TEMP 36.8; O2SAT 98
--- NOTE | 2024-04-16 10:26 | P.PNIM_ITS ---
Progress Note: A&P Assessment and Plan (1) Small bowel obstruction: Code(s): K56.609 - Unspecified intestinal obstruction, unspecified as to partial versus complete obstruction Status: Acute (2) Diabetes mellitus: Code(s): E11.9 - Type 2 diabetes mellitus without complications Status: Acute Plan Small bowel obstruction: 04/04 Exploratory lap with SB resection, adhesiolysis, and ileostomy 04/15: NG tube and NPO TPN running, monitor electrolytes on PRN pain control Surgery team planning water-soluble SBFT to further evaluate. If contrast moves through, then remove NG and restart clear liquids. Gen surgery following Acute blood loss anemia Likely resulting from surgical procedure Hemoglobin 9.5, hemoglobin 13.3 upon arrival Isat 10 IV iron 1000/1000 monitor H and H Electrolyte abnormality, resolving monitor and replace accordingly Trigeminal neuralgia Restarted Pregabalin 300mg bid monitor Hypoalbuminemia Albumin 3.1 today, upon arrival in 4.4 continue monitoring restart PO intake when cleared by gen surgery Diabetes mellitus: Insulin glargine 25 units HS Essential hypertension: Hydralazine 10 mg IV p.r.n. if blood pressure greater than 160 / 90 DVT prophylaxis on Lovenox Awaiting resumption of po intake for discharge Subjective Date/time seen: 04/16/24 10:26 Interval history: NG output is decreasing. Patient had 2 bowel movements yesterday night. Surgery is following and plan to do water-soluble SBFT to further evaluate to remove her NG and start clear liquids. Review of Systems Review of Systems: All systems are reviewed and are negative unless stated otherwise in the HPI. All systems reviewed & are unremarkable except as noted in HPI and below ROS unobtainable: Yes unobtainable due to medical condition Exam Narrative: GENERAL: Ill-appearing in no acute distress. Well-nourished. - EYES: EOMI. Anicteric. - HENT: Moist mucous membranes. - LUNGS: Clear to auscultation bilateral ly, no wheezing, rhonchi, or rales. - CARDIOVASCULAR: Regular rate and rhyth m. No murmur. No JVD. - ABDOMEN: Soft, mild diffuse tender and non-distended. No palpable masses. Surgical wound is dry and clean, bowel sounds normoactive - EXTREMITIES: No edema. Peripheral puls es 2+. Non-tender. - NEUROLOGIC: No focal neurological defi cits. CN II-XII grossly intact. General weakness, - PSYCHIATRIC: Awake, Alert and oriented x 3. Appropriate mood and affect. - SKIN: No rashes or lesions. Warm. - LYMPH: No cervical lymphadenopathy. Const: General: no acute distress, uncomfortable (Due to abdominal pain) and average body habitus Nutritional Appearance: average body habitus Orientation/consciousness: patient oriented x3 HENMT: Head: normocephalic and atraumatic Ears: hearing grossly normal bilaterally Mouth: Yes moist mucous membranes Eyes: General: appearance normal, both eyes and all related structures Pupils: Equal, round and reactive pupils present Neck: Neck: normal visual inspection and full ROM Resp: Effort & Inspection: no respiratory distress Auscultation: clear to auscultation bilaterally Cardio: Rate: regular rate Rhythm: regular rhythm Heart sounds: S1 normal heart sound present and S2 normal heart sound present Peripheral pulses: Peripheral pulses 2+ throughout GI: Inspection: distended, scar (3 vertical scars from the midline to the right mid abdomen) and no visible herniation Auscultation: Hypoactive bowel sounds present Skin: General skin exam: normal color Neuro: General: patient oriented x3, moves all extremities and no focal motor deficits Cranial nerves: Yes Equal, round and reactive pupils present Speech: normal speech Motor exam (neuro): 5/5 motor strength present throughout Extrem: General: normal to inspection and no edema Psych: Mental Status: mental status grossly normal Attitude: cooperative Insight: Good insight present (Psych) Judgement: Good judgement present (Psych) Objective Data Vital Signs Vital Signs: Vital Signs - 24 hr 04/15/24 14:00 04/15/24 18:00 04/15/24 20:00 Temperature 97.7 F 98.1 F Pulse Rate 98 100 100 Respiratory Rate 18 18 18 Blood Pressure 120/62 124/64 Pulse Oximetry 94 92 92 Oxygen Delivery Room Air Fraction of Inspired Oxygen 28 04/16/24 06:00 04/16/24 08:35 Temperature 98.6 F Pulse Rate 104 H Respiratory Rate 18 Blood Pressure 170/79 H Pulse Oximetry 94 Oxygen Delivery Room Air Fraction of Inspired Oxygen Intake/Output Intake/Output: Intake & Output 04/13/24 04/14/24 04/15/24 04/16/24 23:59 23:59 23:59 23:59 Intake Total 520 2252.5 1238.3 Output Total 800 500 204 Balance -280 1752.5 1034.3 Meds/Results Medications: Active Medications Generic Name Dose Route Start Last Admin Trade Name Freq PRN Reason Stop Dose Admin Alteplase, Recombinant 2 mg 04/13/24 18:16 04/13/24 19:54 Alteplase 2 Mg Vial (Cathflo) IV PUSH 2 mg ONCE PRN Administration Line Occlusion Amlodipine Besylate 10 mg 04/14/24 09:00 04/16/24 08:10 Amlodipine Besylate 10 Mg Tablet PO Not Given DAILY SHAKILA Bisacodyl 10 mg 04/11/24 18:00 04/15/24 15:15 Bisacodyl 5 Mg Tablet Ec PO Not Given QPM SHAKILA Dextrose 12.5 gm 04/05/24 13:22 Dextrose 50% 25 Gm/50 Ml Syringe IV PUSH PRN PRN Hypoglycemia Protocol Diphenhydramine HCl 25 mg 04/05/24 13:05 04/15/24 22:16 Diphenhydramine Hcl Inj 50 Mg/Ml Vial IV PUSH 25 mg Q4H PRN Administration Itching Enoxaparin Sodium 40 mg 04/05/24 09:00 04/16/24 08:38 Enoxaparin 40 Mg/0.4 Ml Syringe SUB-Q 40 mg DAILY SHAKILA Administration Glucagon 1 mg 04/05/24 13:22 Glucagon For Inj 1 Mg Vial IM PRN PRN Hypoglycemia Protocol Glucose 15 gm 04/05/24 13:22 Glucose Oral Gel 15 Gm Of Glucse In 37.5 Gm Tube PO PRN PRN Hypoglycemia Protocol Hydromorphone HCl 1 mg 04/04/24 21:53 04/16/24 08:38 Hydromorphone Hcl Inj (*Crx) 1 Mg/Ml Syr IV PUSH 1 mg Q2H PRN Administration Breakthrough Pain Rated 7-10 or NPO Hydromorphone HCl 0.5 mg 04/04/24 21:53 04/15/24 08:48 Hydromorphone Hcl Inj (*Crx) 1 Mg/Ml Syr IV PUSH 0.5 mg Q2H PRN Administration Breakthrough Pain Rated 4-6 or NPO Ibuprofen 800 mg in 200 mls @ 400 mls/hr 04/04/24 21:53 04/05/24 11:01 Caldolor 800 Mg/200 Ml IVPB Infused Q6H PRN Infusion Breakthrough Pain Rated 1-3 or NPO Dextrose 1,000 mls @ 100 mls/hr 04/05/24 13:22 Dextrose 5% 1,000 Ml IVPB PRN PRN Hypoglycemia Protocol Dextrose 1,000 mls @ 50 mls/hr 04/05/24 15:13 Dextrose 10% IV CONT .Q20H PRN if PN is interrupted Fat Emulsion Intravenous 250 mls @ 20.833 mls/hr 04/05/24 16:00 04/16/24 08:39 Lipids 20% IVPB Infused Q24H SHAKILA Infusion Multivitamins 1.25 ml/ 1,002.5 mls @ 50 mls/hr 04/14/24 16:00 04/15/24 15:14 Multivitamins 1.25 ml/ Amino IV CONT 50 mls/hr Acids/Electrolytes/Dextrose .Q20H3M SHAKILA Administration Protocol Sodium Chloride 1,000 mls @ 50 mls/hr 04/14/24 14:55 04/16/24 08:39 Normal Saline Iv IV CONT 50 mls/hr .Q20H SHAKILA Administration Insulin Aspart 2 - 5 units 04/05/24 18:00 04/16/24 04:56 Insulin Aspart (*Bkc) 100 Units/Ml SUB-Q Not Given Q6HR [facility] Protocol Insulin Glargine 25 units 04/07/24 21:00 04/15/24 20:49 Insulin Glargine (*Bkc) 100 Units/Ml SUB-Q 25 units HS SHAKILA Administration Memantine 5 mg 04/13/24 17:00 04/16/24 08:10 Memantine 5 Mg Tablet PO Not Given BID SHAKILA Metoclopramide HCl 10 mg 04/14/24 18:00 04/16/24 05:47 Metoclopramide Hcl Inj 10 Mg/2 Ml Vial IV PUSH 10 mg Q6HR SHAKILA Administration Naloxone HCl 0.1 mg 04/04/24 21:53 Naloxone Hcl 0.4 Mg/Ml Vial IV PUSH Q2M PRN Opiate Reversal Ondansetron HCl 8 mg 04/03/24 10:15 04/16/24 08:38 Ondansetron Inj 4 Mg/2 Ml Vial IV PUSH 8 mg Q6H PRN Administration Nausea And Vomiting Oxycodone/Acetaminophen 1 tablet 04/11/24 10:49 Oxycodone/Acetaminophen (*Crx) 5-325 Mg Tablet PO Q4H PRN Pain Rated 4-6 Oxycodone/Acetaminophen 2 tablet 04/11/24 10:49 04/14/24 13:45 Oxycodone/Acetaminophen (*Crx) 5-325 Mg Tablet PO 2 tablet Q4H PRN Administration Pain Rated 7-10 Phenol 1 spray 04/03/24 22:07 04/03/24 23:37 Phenol/Sod Pheno [place] [employer] (*Bkc) MUCOUS MEM 1 spray PRN PRN Administration Sore Throat Polyethylene Glycol 17 gm 04/11/24 09:00 04/16/24 08:10 Polyethylene Glycol 3350 17 Gm Powd.Pack PO Not Given QAM [facility] Pregabalin 300 mg 04/14/24 09:00 04/16/24 08:10 Pregabalin (*Crx) 75 Mg Capsule PO Not Given Q12HR SHAKILA Promethazine HCl 12.5 mg 04/14/24 08:23 04/16/24 01:22 Promethazine Hcl 25 Mg/Ml Ampul IV PUSH 12.5 mg Q6H PRN Administration Nausea And Vomiting Sodium Chloride 20 ml 04/05/24 16:15 04/06/24 04:48 Central Line Flush IV PUSH 20 ml PRN PRN Administration after blood draws Sodium Chloride 10 ml 04/05/24 16:15 Central Line Flush IV PUSH PRN PRN with TPN bag changes Sodium Chloride 10 ml 04/05/24 22:00 04/16/24 05:48 Central Line Flush IV PUSH 10 ml Q8HR SHAKILA Administration Radiology Results: ITS Impressions Abdomen/Pelvis CT 04/02/24 05:56 IMPRESSION: 1. Small bowel obstruction with transition point in right abdomen. Small Bowel X-Ray 04/04/24 10:19 IMPRESSION: 1. Dilated small bowel with contrast remaining in the proximal small bowel at 2 hours, consistent with small bowel obstruction. Abdomen X-Ray 04/14/24 15:55 IMPRESSION: 1. Nasogastric tube tip in the stomach. Labs Labs: Laboratory Results - last 24 hr 04/15/24 04/15/24 04/15/24 12:30 17:19 20:29 WBC RBC Hgb Hct MCV MCH MCHC RDW Plt Count MPV Sodium Potassium Chloride Carbon Dioxide Anion Gap BUN Creatinine Estim Creat Clear Calc Estimated GFR Glucose POC Capillary Glucose 249 H 169 H 208 H Calcium Total Bilirubin AST ALT Alkaline Phosphatase Total Protein Albumin Triglycerides 04/16/24 04/16/24 04/16/24 00:11 04:52 05:51 WBC 9.5 RBC 3.03 L Hgb 9.3 L Hct 28.2 L MCV 93.1 MCH 30.7 MCHC 33.0 RDW 14.7 H Plt Count 517 H MPV 10.7 H Sodium 134 L Potassium 3.5 Chloride 100 Carbon Dioxide 27 Anion Gap 7 BUN 27 H Creatinine 0.70 Estim Creat Clear Calc 55 Estimated GFR > 60 Glucose 141 H POC Capillary Glucose 206 H 154 H Calcium 8.4 Total Bilirubin 0.4 AST 27 ALT 17 Alkaline Phosphatase 119 Total Protein 6.0 L Albumin 3.1 L Triglycerides 161 H Hospitalist MIPS Advance Care Plan I have confirmed that the patient's Advanced Care Plan is present, code status is documented, or surrogate decision maker is listed in patient medical record.: Yes Medication Reconciliation I have utilized all available resources to obtain, update and review the patients current medications (includes all prescriptions, OTC, herbals, cannabis, and nutritional supplements).: Yes
--- NOTE | 2024-04-16 11:42 | PM.PNGS ---
Progress Note: A&P Assessment and Plan (1) Postoperative ileus: Code(s): K91.89 - Other postprocedural complications and disorders of digestive system; K56.7 - Ileus, unspecified Status: Acute Assessment and Plan: Patient has now had multiple bowel movements. NG output decreasing. Continue NG tube decompression, bowel rest, and TPN for now Will order a water-soluble SBFT to further evaluate. If contrast moves through, then we can remove her NG and restart clear liquids. Continue Reglan Incision healing well. May remove jesse tomorrow. Encouraged ambulating at least 2-3 times per day and sitting up in the chair. (2) Protein calorie malnutrition: Code(s): E46 - Unspecified protein-calorie malnutrition Status: Acute Assessment and Plan: Continue TPN (3) Small bowel obstruction: Code(s): K56.609 - Unspecified intestinal obstruction, unspecified as to partial versus complete obstruction Status: Acute Assessment and Plan: S/p exploratory laparotomy and extensive adhesiolysis with small-bowel resection. See plan above. Plan I have discussed the patient's case and plan of care with Dr. Friend. Subjective Subjective Date/Time Seen: 04/16/24 11:42 Post Op day: 12 Patient reports: no new complaints, feels better, voiding w/o difficulty, flatus, bowel movement (x 3 since yesterday) and afebrile Interval history: Patient feeling good today. Other than her chronic trigeminal neuralgia pain, she denies any abdominal pain or other discomfort. She is sitting up in the chair. She reports ambulating in the room twice yesterday. She has had 3 more BMS since I saw her yesterday. She denies any nausea. Per nursing, she had no NG output overnight and they had to troubleshoot the NG tube this morning. Once the changed our tubing, she had 450 cc of bilious output since. Review of Systems Review of Systems: All systems reviewed & are unremarkable except as noted in HPI and below Exam Const: General: comfortable and no acute distress Orientation/consciousness: patient oriented x3 GI: Inspection: non-distended and incision (dry and jesse intact) GI Palp: Yes Soft to palpation, Yes Tenderness to palpation present (GI) (RLQ and incisional tenderness), No Guarding due to palpation present (GI) and No Rebound tenderness present Auscultation: normal bowel sounds Objective Data Vital Signs Vital Signs: Vital Signs - 24 hr 04/15/24 14:00 04/15/24 18:00 04/15/24 20:00 Temperature 97.7 F 98.1 F Pulse Rate 98 100 100 Respiratory Rate 18 18 18 Blood Pressure 120/62 124/64 Pulse Oximetry 94 92 92 Oxygen Delivery Room Air Fraction of Inspired Oxygen 28 04/16/24 06:00 04/16/24 08:35 04/16/24 10:00 Temperature 98.6 F 98.2 F Pulse Rate 104 H 111 H Respiratory Rate 18 18 Blood Pressure 170/79 H 170/80 H Pulse Oximetry 94 98 Oxygen Delivery Room Air Fraction of Inspired Oxygen Intake/Output Intake/Output: Intake & Output 04/13/24 04/14/24 04/15/24 04/16/24 23:59 23:59 23:59 23:59 Intake Total 520 2252.5 1238.3 Output Total 800 500 204 Balance -280 1752.5 1034.3 Meds/Results Medications: Active Medications Generic Name Dose Route Start Last Admin Trade Name Freq PRN Reason Stop Dose Admin Alteplase, Recombinant 2 mg 04/13/24 18:16 04/13/24 19:54 Alteplase 2 Mg Vial (Cathflo) IV PUSH 2 mg ONCE PRN Administration Line Occlusion Amlodipine Besylate 10 mg 04/14/24 09:00 04/16/24 08:10 Amlodipine Besylate 10 Mg Tablet PO Not Given DAILY SHAKILA Bisacodyl 10 mg 04/11/24 18:00 04/15/24 15:15 Bisacodyl 5 Mg Tablet Ec PO Not Given QPM SHAKILA Dextrose 12.5 gm 04/05/24 13:22 Dextrose 50% 25 Gm/50 Ml Syringe IV PUSH PRN PRN Hypoglycemia Protocol Diphenhydramine HCl 25 mg 04/05/24 13:05 04/15/24 22:16 Diphenhydramine Hcl Inj 50 Mg/Ml Vial IV PUSH 25 mg Q4H PRN Administration Itching Enoxaparin Sodium 40 mg 04/05/24 09:00 04/16/24 08:38 Enoxaparin 40 Mg/0.4 Ml Syringe SUB-Q 40 mg DAILY SHAKILA Administration Glucagon 1 mg 04/05/24 13:22 Glucagon For Inj 1 Mg Vial IM PRN PRN Hypoglycemia Protocol Glucose 15 gm 04/05/24 13:22 Glucose Oral Gel 15 Gm Of Glucse In 37.5 Gm Tube PO PRN PRN Hypoglycemia Protocol Hydromorphone HCl 1 mg 04/04/24 21:53 04/16/24 08:38 Hydromorphone Hcl Inj (*Crx) 1 Mg/Ml Syr IV PUSH 1 mg Q2H PRN Administration Breakthrough Pain Rated 7-10 or NPO Hydromorphone HCl 0.5 mg 04/04/24 21:53 04/15/24 08:48 Hydromorphone Hcl Inj (*Crx) 1 Mg/Ml Syr IV PUSH 0.5 mg Q2H PRN Administration Breakthrough Pain Rated 4-6 or NPO Ibuprofen 800 mg in 200 mls @ 400 mls/hr 04/04/24 21:53 04/05/24 11:01 Caldolor 800 Mg/200 Ml IVPB Infused Q6H PRN Infusion Breakthrough Pain Rated 1-3 or NPO Dextrose 1,000 mls @ 100 mls/hr 04/05/24 13:22 Dextrose 5% 1,000 Ml IVPB PRN PRN Hypoglycemia Protocol Dextrose 1,000 mls @ 50 mls/hr 04/05/24 15:13 Dextrose 10% IV CONT .Q20H PRN if PN is interrupted Fat Emulsion Intravenous 250 mls @ 20.833 mls/hr 04/05/24 16:00 04/16/24 08:39 Lipids 20% IVPB Infused Q24H SHAKILA Infusion Multivitamins 1.25 ml/ 1,002.5 mls @ 50 mls/hr 04/14/24 16:00 04/15/24 15:14 Multivitamins 1.25 ml/ Amino IV CONT 50 mls/hr Acids/Electrolytes/Dextrose .Q20H3M SHAKILA Administration Protocol Sodium Chloride 1,000 mls @ 50 mls/hr 04/14/24 14:55 04/16/24 08:39 Normal Saline Iv IV CONT 50 mls/hr .Q20H SHAKILA Administration Insulin Aspart 2 - 5 units 04/05/24 18:00 04/16/24 04:56 Insulin Aspart (*Bkc) 100 Units/Ml SUB-Q Not Given Q6HR [facility] Protocol Insulin Glargine 25 units 04/07/24 21:00 04/15/24 20:49 Insulin Glargine (*Bkc) 100 Units/Ml SUB-Q 25 units HS SHAKILA Administration Memantine 5 mg 04/13/24 17:00 04/16/24 08:10 Memantine 5 Mg Tablet PO Not Given BID SHAKILA Metoclopramide HCl 10 mg 04/14/24 18:00 04/16/24 05:47 Metoclopramide Hcl Inj 10 Mg/2 Ml Vial IV PUSH 10 mg Q6HR SHAKILA Administration Naloxone HCl 0.1 mg 04/04/24 21:53 Naloxone Hcl 0.4 Mg/Ml Vial IV PUSH Q2M PRN Opiate Reversal Ondansetron HCl 8 mg 04/03/24 10:15 04/16/24 08:38 Ondansetron Inj 4 Mg/2 Ml Vial IV PUSH 8 mg Q6H PRN Administration Nausea And Vomiting Oxycodone/Acetaminophen 1 tablet 04/11/24 10:49 Oxycodone/Acetaminophen (*Crx) 5-325 Mg Tablet PO Q4H PRN Pain Rated 4-6 Oxycodone/Acetaminophen 2 tablet 04/11/24 10:49 04/14/24 13:45 Oxycodone/Acetaminophen (*Crx) 5-325 Mg Tablet PO 2 tablet Q4H PRN Administration Pain Rated 7-10 Phenol 1 spray 04/03/24 22:07 04/03/24 23:37 Phenol/Sod Pheno [place] [employer] (*Bkc) MUCOUS MEM 1 spray PRN PRN Administration Sore Throat Polyethylene Glycol 17 gm 04/11/24 09:00 04/16/24 08:10 Polyethylene Glycol 3350 17 Gm Powd.Pack PO Not Given QAM SHAKILA Pregabalin 300 mg 04/14/24 09:00 04/16/24 08:10 Pregabalin (*Crx) 75 Mg Capsule PO Not Given Q12HR SHAKILA Promethazine HCl 12.5 mg 04/14/24 08:23 04/16/24 01:22 Promethazine Hcl 25 Mg/Ml Ampul IV PUSH 12.5 mg Q6H PRN Administration Nausea And Vomiting Sodium Chloride 20 ml 04/05/24 16:15 04/06/24 04:48 Central Line Flush IV PUSH 20 ml PRN PRN Administration after blood draws Sodium Chloride 10 ml 04/05/24 16:15 Central Line Flush IV PUSH PRN PRN with TPN bag changes Sodium Chloride 10 ml 04/05/24 22:00 04/16/24 05:48 Central Line Flush IV PUSH 10 ml Q8HR SHAKILA Administration Radiology Results: ITS Impressions Abdomen/Pelvis CT 04/02/24 05:56 IMPRESSION: 1. Small bowel obstruction with transition point in right abdomen. Small Bowel X-Ray 04/04/24 10:19 IMPRESSION: 1. Dilated small bowel with contrast remaining in the proximal small bowel at 2 hours, consistent with small bowel obstruction. Abdomen X-Ray 04/14/24 15:55 IMPRESSION: 1. Nasogastric tube tip in the stomach. Labs Labs: Laboratory Results - last 24 hr 04/15/24 04/15/24 04/15/24 12:30 17:19 20:29 WBC RBC Hgb Hct MCV MCH MCHC RDW Plt Count MPV Sodium Potassium Chloride Carbon Dioxide Anion Gap BUN Creatinine Estim Creat Clear Calc Estimated GFR Glucose POC Capillary Glucose 249 H 169 H 208 H Calcium Total Bilirubin AST ALT Alkaline Phosphatase Total Protein Albumin Triglycerides 04/16/24 04/16/24 04/16/24 00:11 04:52 05:51 WBC 9.5 RBC 3.03 L Hgb 9.3 L Hct 28.2 L MCV 93.1 MCH 30.7 MCHC 33.0 RDW 14.7 H Plt Count 517 H MPV 10.7 H Sodium 134 L Potassium 3.5 Chloride 100 Carbon Dioxide 27 Anion Gap 7 BUN 27 H Creatinine 0.70 Estim Creat Clear Calc 55 Estimated GFR > 60 Glucose 141 H POC Capillary Glucose 206 H 154 H Calcium 8.4 Total Bilirubin 0.4 AST 27 ALT 17 Alkaline Phosphatase 119 Total Protein 6.0 L Albumin 3.1 L Triglycerides 161 H
[2024-04-16 14:00] VITALS: BP 169/92; PULSE 102; RESP 18; TEMP 36.8; O2SAT 99
--- NOTE | 2024-04-16 14:56 | PCPTNOTE ---
Patient refused treatment this session. Patient reported she just got back from testing and is too worn out to work with PT at this time.
[2024-04-16] MEDS: MULTIVITAMINS IV CONT (15:00)
[2024-04-16] MEDS: [UNRECOGNIZED DRUG - OTHER] IV CONT (15:00)
[2024-04-16] MEDS: FAT EMULSIONS IV 20% 250 ML 20.8 ML IVPB (15:47)
[2024-04-16 16:54] LABS: Glucose Point of Care 151 mg/dl (65-105)
[2024-04-16 17:24] VITALS: BP 145/70; PULSE 90; RESP 16; TEMP 36.9; O2SAT 94
[2024-04-16 18:00] VITALS: BP 182/74; PULSE 106; RESP 18; TEMP 36.8; O2SAT 96
[2024-04-16] MEDS: INSULIN GLARGINE (*BKC) 100 UNITS/ML 25 UNITS SUB-Q (20:18)
[2024-04-16] MEDS: PREGABALIN (*CRX) 75 MG CAPSULE 300 MG PO (20:20)
[2024-04-16] MEDS: oxyCODONE/ACETAMINOPHEN (*CRX) 5-325 MG TABLET 2 TABLET PO (20:23)
[2024-04-16 20:28] LABS: Glucose Point of Care 296 mg/dl (65-105)
[2024-04-16 23:59] LABS: Glucose Point of Care 241 mg/dl (65-105)
[2024-04-17 03:59] VITALS: BP 161/81; PULSE 101; RESP 18; TEMP 36.5; O2SAT 96
[2024-04-17] MEDS: CENTRAL LINE FLUSH 10 ML IV PUSH ×3 (05:34→21:01)
[2024-04-17] MEDS: oxyCODONE/ACETAMINOPHEN (*CRX) 5-325 MG TABLET 2 TABLET PO ×3 (05:34→17:06)
[2024-04-17] MEDS: METOCLOPRAMIDE HCL INJ 10 MG/2 ML VIAL IV PUSH ×3 (05:34→17:07)
[2024-04-17 05:41] LABS: Glucose Point of Care 195 mg/dl (65-105)
[2024-04-17 06:00] LABS: Basophils Absolute Auto 0.1 K/mm3 (0.0-0.1); Basophils Percent Auto 1.1 % (0.2-1.2); Eosinophils Absolute Auto 0.6 K/mm3 (0-0.3); Eosinophils Percent Auto 5.4 % (0-4.4); Hematocrit 31.1 % (37.0-47.0); Immature Granulocyte Absolute 0.28 K/mm3 (0.00-0.031); Immature Granulocyte Percent A 2.5 % (0-0.5); Lymphocytes Absolute Auto 2.79 K/mm3 (0.9-3.2); Lymphocytes Percent Auto 24.7 % (18.3-44.2); Mean Corpuscular HGB Conc 32.2 g/dl (32-36); Mean Corpuscular Hemoglobin 30.1 pg (26-34); Mean Corpuscular Volume 93.7 fl (80-100); Mean Platelet Volume 10.7 fl (7.4-10.4); Monocytes Absolute Auto 1.8 K/mm3 (0.1-0.6); Monocytes Percent Auto 15.8 % (2.6-8.5); Neutrophils Absolute Auto 5.7 K/mm3 (1.3-6.7); Neutrophils Percent Auto 50.5 % (45.5-73.1); Platelet Count Result 658 k/mm3 (150-375); Red Blood Count 3.32 M/mm3 (4.2-5.4); Red Cell Distribution Width 14.8 % (11.5-14.5); White Blood Count 11.3 K/mm3 (4.5-10.0)
[2024-04-17 06:00] LABS: Glucose Point of Care 223 mg/dl (65-105)
[2024-04-17 06:21] LABS: Alanine Aminotransferase 19 U/L (6-35); Albumin Level 3.3 g/dL (3.5-5.1); Alkaline Phosphatase 138 U/L (38-126); Anion Gap 10 mmol/L (4-12); Aspartate Amino Transferase 30 U/L (14-36); Bilirubin,Total 0.4 mg/dL (0.2-1.3); Blood Urea Nitrogen 26 mg/dL (7-17); Calcium 8.4 mg/dL (8.4-10.2); Carbon Dioxide 28 mmol/L (22-30); Chloride 97 mmol/L (98-107); Estimated CRCL calculation 55 ml/min; Estimated Glomerular Filt Rate > 60; Glucose 204 mg/dL (65-110); Magnesium 1.7 mg/dL (1.6-2.3); Potassium 3.6 mmol/L (3.4-5.0); Sodium 135 mmol/L (137-145)
[2024-04-17] MEDS: PREGABALIN (*CRX) 75 MG CAPSULE 300 MG PO ×2 (08:49→21:00)
[2024-04-17] MEDS: polyethylene glycoL 3350 17 GM POWD.PACK PO (08:49)
[2024-04-17] MEDS: amLODIPine BESYLATE 10 MG TABLET PO (08:50)
[2024-04-17] MEDS: PANTOPRAZOLE 40 MG TABLET PO ×2 (08:50→21:00)
[2024-04-17] MEDS: ENOXAPARIN 40 MG/0.4 ML SYRINGE SUB-Q (08:50)
[2024-04-17] MEDS: MEMANTINE 5 MG TABLET PO ×2 (08:50→17:06)
[2024-04-17] MEDS: ONDANSETRON INJ 4 MG/2 ML VIAL 8 MG IV PUSH ×2 (08:50→19:44)
[2024-04-17 10:00] VITALS: BP 148/78; PULSE 97; RESP 18; TEMP 36.4; O2SAT 96
[2024-04-17 12:13] LABS: Glucose Point of Care 252 mg/dl (65-105)
[2024-04-17] MEDS: INSULIN ASPART (*BKC) 100 UNITS/ML SUB-Q (12:26)
[2024-04-17] MEDS: [UNRECOGNIZED DRUG - OTHER] IV CONT (13:20)
[2024-04-17] MEDS: MULTIVITAMINS IV CONT (13:20)
--- NOTE | 2024-04-17 13:54 | P.PNGS_ITS ---
Progress Note: A&P Assessment and Plan (1) Postoperative ileus: Code(s): K91.89 - Other postprocedural complications and disorders of digestive system; K56.7 - Ileus, unspecified Status: Acute Assessment and Plan: * Small-bowel follow-through showed contrast reaching the colon within 1 hour. NG tube was removed. * Continue full liquids today. * Stop TPN and lipids * Continue MiraLax and Reglan * Will add Protonix (2) Protein calorie malnutrition: Code(s): E46 - Unspecified protein-calorie malnutrition Status: Acute Assessment and Plan: * Tolerating full liquids well. We will stop the TPN. Add Ensure supplements. (3) Small bowel obstruction: Code(s): K56.609 - Unspecified intestinal obstruction, unspecified as to partial versus complete obstruction Status: Acute Assessment and Plan: * S/p exploratory laparotomy and extensive adhesiolysis with small-bowel resection. Small-bowel series showed no evidence of an obstruction. Plan I have discussed the patient's case and plan of care with Dr. Friend. Subjective Subjective Date/Time Seen: 04/17/24 09:54 Post Op day: 13 Patient reports: no new complaints, feels better, tolerating liquids well, voiding w/o difficulty, flatus, bowel movement and afebrile Interval history: No acute issues overnight. She had some nausea with the small-bowel series yesterday and an episode of vomiting, but this subsided into the evening. She has been able to tolerate full liquids without any nausea or vomiting. She is tolerating oral medication. She got up to the chair this morning. She denies any abdominal pain. She has had multiple bowel movements since the small-bowel follow-through yesterday. Review of Systems Review of Systems: All systems reviewed & are unremarkable except as noted in HPI and below Exam Const: General: comfortable and no acute distress Orientation/consciousness: patient oriented x3 GI: Inspection: incision (dry and jesse intact) and other (mildly distended) GI Palp: Yes Soft to palpation, No Tenderness to palpation present (GI), No Guarding due to palpation present (GI) and No Rebound tenderness present Auscultation: normal bowel sounds Objective Data Vital Signs Vital Signs: Vital Signs - 24 hr 04/16/24 14:00 04/16/24 17:24 04/16/24 18:00 Temperature 98.3 F 98.4 F 98.2 F Pulse Rate 102 H 90 106 H Respiratory Rate 18 16 18 Blood Pressure 169/92 H 145/70 H 182/74 H Pulse Oximetry 99 94 96 Oxygen Delivery 04/16/24 20:00 04/17/24 03:59 04/17/24 08:50 Temperature 97.7 F Pulse Rate 101 H Respiratory Rate 18 Blood Pressure 161/81 H Pulse Oximetry 96 Oxygen Delivery Room Air Room Air 04/17/24 10:00 Temperature 97.6 F Pulse Rate 97 Respiratory Rate 18 Blood Pressure 148/78 H Pulse Oximetry 96 Oxygen Delivery Intake/Output Intake/Output: Intake & Output 04/14/24 04/15/24 04/16/24 04/17/24 23:59 23:59 23:59 23:59 Intake Total 520 2252.5 2600.8 2602.5 Output Total 463 770 0152 Balance -280 1752.5 786.8 2602.5 Meds/Results Medications: Active Medications Generic Name Dose Route Start Last Admin Trade Name Freq PRN Reason Stop Dose Admin Alteplase, Recombinant 2 mg 04/13/24 18:16 04/13/24 19:54 Alteplase 2 Mg Vial (Cathflo) IV PUSH 2 mg ONCE PRN Administration Line Occlusion Amlodipine Besylate 10 mg 04/14/24 09:00 04/17/24 08:50 Amlodipine Besylate 10 Mg Tablet PO 10 mg DAILY SHAKILA Administration Bisacodyl 10 mg 04/11/24 18:00 04/16/24 15:47 Bisacodyl 5 Mg Tablet Ec PO Not Given QPM SHAKILA Dextrose 12.5 gm 04/05/24 13:22 Dextrose 50% 25 Gm/50 Ml Syringe IV PUSH PRN PRN Hypoglycemia Protocol Diphenhydramine HCl 25 mg 04/05/24 13:05 04/15/24 22:16 Diphenhydramine Hcl Inj 50 Mg/Ml Vial IV PUSH 25 mg Q4H PRN Administration Itching Enoxaparin Sodium 40 mg 04/05/24 09:00 04/17/24 08:50 Enoxaparin 40 Mg/0.4 Ml Syringe SUB-Q 40 mg DAILY SHAKILA Administration Glucagon 1 mg 04/05/24 13:22 Glucagon For Inj 1 Mg Vial IM PRN PRN Hypoglycemia Protocol Glucose 15 gm 04/05/24 13:22 Glucose Oral Gel 15 Gm Of Glucse In 37.5 Gm Tube PO PRN PRN Hypoglycemia Protocol Hydralazine HCl 10 mg 04/17/24 07:53 Hydralazine Hcl 20 Mg/Ml Vial IV PUSH Q8H PRN Blood Pressure - High Hydromorphone HCl 1 mg 04/04/24 21:53 04/16/24 23:50 Hydromorphone Hcl Inj (*Crx) 1 Mg/Ml Syr IV PUSH 1 mg Q2H PRN Administration Breakthrough Pain Rated 7-10 or NPO Hydromorphone HCl 0.5 mg 04/04/24 21:53 04/15/24 08:48 Hydromorphone Hcl Inj (*Crx) 1 Mg/Ml Syr IV PUSH 0.5 mg Q2H PRN Administration Breakthrough Pain Rated 4-6 or NPO Ibuprofen 800 mg in 200 mls @ 400 mls/hr 04/04/24 21:53 04/05/24 11:01 Caldolor 800 Mg/200 Ml IVPB Infused Q6H PRN Infusion Breakthrough Pain Rated 1-3 or NPO Dextrose 1,000 mls @ 100 mls/hr 04/05/24 13:22 Dextrose 5% 1,000 Ml IVPB PRN PRN Hypoglycemia Protocol Dextrose 1,000 mls @ 50 mls/hr 04/05/24 15:13 Dextrose 10% IV CONT .Q20H PRN if PN is interrupted Fat Emulsion Intravenous 250 mls @ 20.833 mls/hr 04/05/24 16:00 04/17/24 03:49 Lipids 20% IVPB Infused Q24H SHAKILA Infusion Multivitamins 1.25 ml/ 1,002.5 mls @ 50 mls/hr 04/14/24 16:00 04/17/24 13:20 Multivitamins 1.25 ml/ Amino IV CONT 50 mls/hr Acids/Electrolytes/Dextrose .Q20H3M SHAKILA Administration Protocol Insulin Aspart 2 - 5 units 04/05/24 18:00 04/17/24 12:26 Insulin Aspart (*Bkc) 100 Units/Ml SUB-Q 3 units Q6HR SHAKILA Administration Protocol Insulin Glargine 25 units 04/07/24 21:00 04/16/24 20:18 Insulin Glargine (*Bkc) 100 Units/Ml SUB-Q 25 units HS SHAKILA Administration Memantine 5 mg 04/13/24 17:00 04/17/24 08:50 Memantine 5 Mg Tablet PO 5 mg BID SHAKILA Administration Metoclopramide HCl 10 mg 04/14/24 18:00 04/17/24 12:27 Metoclopramide Hcl Inj 10 Mg/2 Ml Vial IV PUSH 10 mg Q6HR SHAKILA Administration Naloxone HCl 0.1 mg 04/04/24 21:53 Naloxone Hcl 0.4 Mg/Ml Vial IV PUSH Q2M PRN Opiate Reversal Ondansetron HCl 8 mg 04/03/24 10:15 04/17/24 08:50 Ondansetron Inj 4 Mg/2 Ml Vial IV PUSH 8 mg Q6H PRN Administration Nausea And Vomiting Oxycodone/Acetaminophen 1 tablet 04/11/24 10:49 Oxycodone/Acetaminophen (*Crx) 5-325 Mg Tablet PO Q4H PRN Pain Rated 4-6 Oxycodone/Acetaminophen 2 tablet 04/11/24 10:49 04/17/24 09:06 Oxycodone/Acetaminophen (*Crx) 5-325 Mg Tablet PO 2 tablet Q4H PRN Administration Pain Rated 7-10 Pantoprazole Sodium 40 mg 04/17/24 09:00 04/17/24 08:50 Pantoprazole 40 Mg Tablet PO 40 mg Q12HR SHAKILA Administration Phenol 1 spray 04/03/24 22:07 04/03/24 23:37 Phenol/Sod Pheno [place] (*Bkc) MUCOUS MEM 1 spray PRN PRN Administration Sore Throat Polyethylene Glycol 17 gm 04/11/24 09:00 04/17/24 08:49 Polyethylene Glycol 3350 17 Gm Powd.Pack PO 17 gm QAM SHAKILA Administration Pregabalin 300 mg 04/14/24 09:00 04/17/24 08:49 Pregabalin (*Crx) 75 Mg Capsule PO 300 mg Q12HR SHAKILA Administration Promethazine HCl 12.5 mg 04/14/24 08:23 04/16/24 01:22 Promethazine Hcl 25 Mg/Ml Ampul IV PUSH 12.5 mg Q6H PRN Administration Nausea And Vomiting Sodium Chloride 20 ml 04/05/24 16:15 04/06/24 04:48 Central Line Flush IV PUSH 20 ml PRN PRN Administration after blood draws Sodium Chloride 10 ml 04/05/24 16:15 Central Line Flush IV PUSH PRN PRN with TPN bag changes Sodium Chloride 10 ml 04/05/24 22:00 04/17/24 12:28 Central Line Flush IV PUSH 10 ml Q8HR SHAKILA Administration Radiology Results: ITS Impressions Abdomen/Pelvis CT 04/02/24 05:56 IMPRESSION: 1. Small bowel obstruction with transition point in right abdomen. Abdomen X-Ray 04/14/24 15:55 IMPRESSION: 1. Nasogastric tube tip in the stomach. Small Bowel X-Ray 04/16/24 14:30 IMPRESSION: 1. Dilated small bowel with prompt passage of contrast to the colon, consistent with adynamic ileus. Labs Labs: Laboratory Results - last 24 hr 04/16/24 04/16/24 04/16/24 16:48 20:18 23:47 WBC RBC Hgb Hct MCV MCH MCHC RDW Plt Count MPV Immature Gran % (Auto) Neut % (Auto) Lymph % (Auto) [place] % (Auto) Eos % (Auto) Baso % (Auto) Lymph # (Auto) [place] # (Auto) Eos # (Auto) Baso # (Auto) Abs Immat Gran (auto) Absolute Neuts (auto) Absolute Nucleated RBC Nucleated RBC % Sodium Potassium Chloride Carbon Dioxide Anion Gap BUN Creatinine Estim Creat Clear Calc Estimated GFR Glucose POC Capillary Glucose 151 H 296 H 241 H Calcium Magnesium Total Bilirubin AST ALT Alkaline Phosphatase Total Protein Albumin 04/17/24 04/17/24 04/17/24 04:09 05:33 05:37 WBC 11.3 H RBC 3.32 L Hgb 10.0 L Hct 31.1 L MCV 93.7 MCH 30.1 MCHC 32.2 RDW 14.8 H Plt Count 658 H MPV 10.7 H Immature Gran % (Auto) 2.5 H Neut % (Auto) 50.5 Lymph % (Auto) 24.7 [place] % (Auto) 15.8 H Eos % (Auto) 5.4 H Baso % (Auto) 1.1 Lymph # (Auto) 2.79 [place] # (Auto) 1.8 H Eos # (Auto) 0.6 H Baso # (Auto) 0.1 Abs Immat Gran (auto) 0.28 H Absolute Neuts (auto) 5.7 Absolute Nucleated RBC 0.000 Nucleated RBC % 0.0 Sodium 135 L Potassium 3.6 Chloride 97 L Carbon Dioxide 28 Anion Gap 10 BUN 26 H Creatinine 0.70 Estim Creat Clear Calc 55 Estimated GFR > 60 Glucose 204 H POC Capillary Glucose 223 H 195 H Calcium 8.4 Magnesium 1.7 Total Bilirubin 0.4 AST 30 ALT 19 Alkaline Phosphatase 138 H Total Protein 7.0 Albumin 3.3 L 04/17/24 11:57 WBC RBC Hgb Hct MCV MCH MCHC RDW Plt Count MPV Immature Gran % (Auto) Neut % (Auto) Lymph % (Auto) [place] % (Auto) Eos % (Auto) Baso % (Auto) Lymph # (Auto) [place] # (Auto) Eos # (Auto) Baso # (Auto) Abs Immat Gran (auto) Absolute Neuts (auto) Absolute Nucleated RBC Nucleated RBC % Sodium Potassium Chloride Carbon Dioxide Anion Gap BUN Creatinine Estim Creat Clear Calc Estimated GFR Glucose POC Capillary Glucose 252 H Calcium Magnesium Total Bilirubin AST ALT Alkaline Phosphatase Total Protein Albumin
[2024-04-17 14:00] VITALS: BP 128/63; PULSE 89; RESP 18; TEMP 36.4; O2SAT 96
--- NOTE | 2024-04-17 15:39 | P.PNIM_ITS ---
Progress Note: A&P Assessment and Plan (1) Small bowel obstruction: Code(s): K56.609 - Unspecified intestinal obstruction, unspecified as to partial versus complete obstruction Status: Acute (2) Diabetes mellitus: Code(s): E11.9 - Type 2 diabetes mellitus without complications Status: Acute Plan Small bowel obstruction: 04/04 Exploratory lap with SB resection, adhesiolysis, and ileostomy s/p NG tube Full liquid diet TPN running, monitor electrolytes on PRN pain control S/P water-soluble SBFT Gen surgery following Acute blood loss anemia Likely resulting from surgical procedure Hemoglobin 9.5, hemoglobin 13.3 upon arrival Isat 10 IV iron 1000/1000 monitor H and H Electrolyte abnormality, resolving monitor and replace accordingly Trigeminal neuralgia Restarted Pregabalin 300mg bid monitor Hypoalbuminemia Albumin 3.1 today, upon arrival in 4.4 continue monitoring restart PO intake when cleared by gen surgery Diabetes mellitus: Insulin glargine 25 units HS Essential hypertension: Hydralazine 10 mg IV p.r.n. if blood pressure greater than 160 / 90 DVT prophylaxis on Lovenox Awaiting resumption of po intake for discharge Subjective Date/time seen: 04/17/24 15:39 Interval history: Patient is currently doing well better than yesterday. On full liquid diet. Tolerating diet well. Review of Systems Review of Systems: All systems are reviewed and are negative unless stated otherwise in the HPI. All systems reviewed & are unremarkable except as noted in HPI and below ROS unobtainable: Yes unobtainable due to medical condition Exam Narrative: GENERAL: Ill-appearing in no acute distress. Well-nourished. - EYES: EOMI. Anicteric. - HENT: Moist mucous membranes. - LUNGS: Clear to auscultation bilateral ly, no wheezing, rhonchi, or rales. - CARDIOVASCULAR: Regular rate and rhyth m. No murmur. No JVD. - ABDOMEN: Soft, mild diffuse tender and non-distended. No palpable masses. Surgical wound is dry and clean, bowel sounds normoactive - EXTREMITIES: No edema. Peripheral puls es 2+. Non-tender. - NEUROLOGIC: No focal neurological defi cits. CN II-XII grossly intact. General weakness, - PSYCHIATRIC: Awake, Alert and oriented x 3. Appropriate mood and affect. - SKIN: No rashes or lesions. Warm. - LYMPH: No cervical lymphadenopathy. Const: General: no acute distress, uncomfortable (Due to abdominal pain) and average body habitus Nutritional Appearance: average body habitus Orientation/consciousness: patient oriented x3 HENMT: Head: normocephalic and atraumatic Ears: hearing grossly normal bilaterally Mouth: Yes moist mucous membranes Eyes: General: appearance normal, both eyes and all related structures Pupils: Equal, round and reactive pupils present Neck: Neck: normal visual inspection and full ROM Resp: Effort & Inspection: no respiratory distress Auscultation: clear to auscultation bilaterally Cardio: Rate: regular rate Rhythm: regular rhythm Heart sounds: S1 normal heart sound present and S2 normal heart sound present Peripheral pulses: Peripheral pulses 2+ throughout GI: Inspection: distended, scar (3 vertical scars from the midline to the right mid abdomen) and no visible herniation Auscultation: Hypoactive bowel sounds present Skin: General skin exam: normal color Neuro: General: patient oriented x3, moves all extremities and no focal motor deficits Cranial nerves: Yes Equal, round and reactive pupils present Speech: normal speech Motor exam (neuro): 5/5 motor strength present throughout Extrem: General: normal to inspection and no edema Psych: Mental Status: mental status grossly normal Attitude: cooperative Insight: Good insight present (Psych) Judgement: Good judgement present (Psych) Objective Data Vital Signs Vital Signs: Vital Signs - 24 hr 04/16/24 17:24 04/16/24 18:00 04/16/24 20:00 Temperature 98.4 F 98.2 F Pulse Rate 90 106 H Respiratory Rate 16 18 Blood Pressure 145/70 H 182/74 H Pulse Oximetry 94 96 Oxygen Delivery Room Air 04/17/24 03:59 04/17/24 08:50 04/17/24 10:00 Temperature 97.7 F 97.6 F Pulse Rate 101 H 97 Respiratory Rate 18 18 Blood Pressure 161/81 H 148/78 H Pulse Oximetry 96 96 Oxygen Delivery Room Air 04/17/24 14:00 Temperature 97.6 F Pulse Rate 89 Respiratory Rate 18 Blood Pressure 128/63 Pulse Oximetry 96 Oxygen Delivery Intake/Output Intake/Output: Intake & Output 04/14/24 04/15/24 04/16/24 04/17/24 23:59 23:59 23:59 23:59 Intake Total 520 2252.5 2600.8 2602.5 Output Total 953 620 6041 Balance -280 1752.5 786.8 2602.5 Meds/Results Medications: Active Medications Generic Name Dose Route Start Last Admin Trade Name Freq PRN Reason Stop Dose Admin Alteplase, Recombinant 2 mg 04/13/24 18:16 04/13/24 19:54 Alteplase 2 Mg Vial (Cathflo) IV PUSH 2 mg ONCE PRN Administration Line Occlusion Amlodipine Besylate 10 mg 04/14/24 09:00 04/17/24 08:50 Amlodipine Besylate 10 Mg Tablet PO 10 mg DAILY SHAKILA Administration Bisacodyl 10 mg 04/11/24 18:00 04/16/24 15:47 Bisacodyl 5 Mg Tablet Ec PO Not Given QPM SHAKILA Dextrose 12.5 gm 04/05/24 13:22 Dextrose 50% 25 Gm/50 Ml Syringe IV PUSH PRN PRN Hypoglycemia Protocol Diphenhydramine HCl 25 mg 04/05/24 13:05 04/15/24 22:16 Diphenhydramine Hcl Inj 50 Mg/Ml Vial IV PUSH 25 mg Q4H PRN Administration Itching Enoxaparin Sodium 40 mg 04/05/24 09:00 04/17/24 08:50 Enoxaparin 40 Mg/0.4 Ml Syringe SUB-Q 40 mg DAILY SHAKILA Administration Glucagon 1 mg 04/05/24 13:22 Glucagon For Inj 1 Mg Vial IM PRN PRN Hypoglycemia Protocol Glucose 15 gm 04/05/24 13:22 Glucose Oral Gel 15 Gm Of Glucse In 37.5 Gm Tube PO PRN PRN Hypoglycemia Protocol Hydralazine HCl 10 mg 04/17/24 07:53 Hydralazine Hcl 20 Mg/Ml Vial IV PUSH Q8H PRN Blood Pressure - High Hydromorphone HCl 1 mg 04/04/24 21:53 04/16/24 23:50 Hydromorphone Hcl Inj (*Crx) 1 Mg/Ml Syr IV PUSH 1 mg Q2H PRN Administration Breakthrough Pain Rated 7-10 or NPO Hydromorphone HCl 0.5 mg 04/04/24 21:53 04/15/24 08:48 Hydromorphone Hcl Inj (*Crx) 1 Mg/Ml Syr IV PUSH 0.5 mg Q2H PRN Administration Breakthrough Pain Rated 4-6 or NPO Ibuprofen 800 mg in 200 mls @ 400 mls/hr 04/04/24 21:53 04/05/24 11:01 Caldolor 800 Mg/200 Ml IVPB Infused Q6H PRN Infusion Breakthrough Pain Rated 1-3 or NPO Dextrose 1,000 mls @ 100 mls/hr 04/05/24 13:22 Dextrose 5% 1,000 Ml IVPB PRN PRN Hypoglycemia Protocol Dextrose 1,000 mls @ 50 mls/hr 04/05/24 15:13 Dextrose 10% IV CONT .Q20H PRN if PN is interrupted Insulin Aspart 2 - 5 units 04/05/24 18:00 04/17/24 12:26 Insulin Aspart (*Bkc) 100 Units/Ml SUB-Q 3 units Q6HR SHAKILA Administration Protocol Insulin Glargine 25 units 04/07/24 21:00 04/16/24 20:18 Insulin Glargine (*Bkc) 100 Units/Ml SUB-Q 25 units HS SHAKILA Administration Memantine 5 mg 04/13/24 17:00 04/17/24 08:50 Memantine 5 Mg Tablet PO 5 mg BID SHAKILA Administration Metoclopramide HCl 10 mg 04/14/24 18:00 04/17/24 12:27 Metoclopramide Hcl Inj 10 Mg/2 Ml Vial IV PUSH 10 mg Q6HR SHAKILA Administration Naloxone HCl 0.1 mg 04/04/24 21:53 Naloxone Hcl 0.4 Mg/Ml Vial IV PUSH Q2M PRN Opiate Reversal Ondansetron HCl 8 mg 04/03/24 10:15 04/17/24 08:50 Ondansetron Inj 4 Mg/2 Ml Vial IV PUSH 8 mg Q6H PRN Administration Nausea And Vomiting Oxycodone/Acetaminophen 1 tablet 04/11/24 10:49 Oxycodone/Acetaminophen (*Crx) 5-325 Mg Tablet PO Q4H PRN Pain Rated 4-6 Oxycodone/Acetaminophen 2 tablet 04/11/24 10:49 04/17/24 09:06 Oxycodone/Acetaminophen (*Crx) 5-325 Mg Tablet PO 2 tablet Q4H PRN Administration Pain Rated 7-10 Pantoprazole Sodium 40 mg 04/17/24 09:00 04/17/24 08:50 Pantoprazole 40 Mg Tablet PO 40 mg Q12HR SHAKILA Administration Phenol 1 spray 04/03/24 22:07 04/03/24 23:37 Phenol/Sod Pheno [place] [employer] (*Bkc) MUCOUS MEM 1 spray PRN PRN Administration Sore Throat Polyethylene Glycol 17 gm 04/11/24 09:00 04/17/24 08:49 Polyethylene Glycol 3350 17 Gm Powd.Pack PO 17 gm QAM SHAKILA Administration Pregabalin 300 mg 04/14/24 09:00 04/17/24 08:49 Pregabalin (*Crx) 75 Mg Capsule PO 300 mg Q12HR SHAKILA Administration Promethazine HCl 12.5 mg 04/14/24 08:23 04/16/24 01:22 Promethazine Hcl 25 Mg/Ml Ampul IV PUSH 12.5 mg Q6H PRN Administration Nausea And Vomiting Sodium Chloride 20 ml 04/05/24 16:15 04/06/24 04:48 Central Line Flush IV PUSH 20 ml PRN PRN Administration after blood draws Sodium Chloride 10 ml 04/05/24 16:15 Central Line Flush IV PUSH PRN PRN with TPN bag changes Sodium Chloride 10 ml 04/05/24 22:00 04/17/24 12:28 Central Line Flush IV PUSH 10 ml Q8HR SHAKILA Administration Radiology Results: ITS Impressions Abdomen/Pelvis CT 04/02/24 05:56 IMPRESSION: 1. Small bowel obstruction with transition point in right abdomen. Abdomen X-Ray 04/14/24 15:55 IMPRESSION: 1. Nasogastric tube tip in the stomach. Small Bowel X-Ray 04/16/24 14:30 IMPRESSION: 1. Dilated small bowel with prompt passage of contrast to the colon, consistent with adynamic ileus. Labs Labs: Laboratory Results - last 24 hr 04/16/24 04/16/24 04/16/24 16:48 20:18 23:47 WBC RBC Hgb Hct MCV MCH MCHC RDW Plt Count MPV Immature Gran % (Auto) Neut % (Auto) Lymph % (Auto) [place] % (Auto) Eos % (Auto) Baso % (Auto) Lymph # (Auto) [place] # (Auto) Eos # (Auto) Baso # (Auto) Abs Immat Gran (auto) Absolute Neuts (auto) Absolute Nucleated RBC Nucleated RBC % Sodium Potassium Chloride Carbon Dioxide Anion Gap BUN Creatinine Estim Creat Clear Calc Estimated GFR Glucose POC Capillary Glucose 151 H 296 H 241 H Calcium Magnesium Total Bilirubin AST ALT Alkaline Phosphatase Total Protein Albumin 04/17/24 04/17/24 04/17/24 04:09 05:33 05:37 WBC 11.3 H RBC 3.32 L Hgb 10.0 L Hct 31.1 L MCV 93.7 MCH 30.1 MCHC 32.2 RDW 14.8 H Plt Count 658 H MPV 10.7 H Immature Gran % (Auto) 2.5 H Neut % (Auto) 50.5 Lymph % (Auto) 24.7 [place] % (Auto) 15.8 H Eos % (Auto) 5.4 H Baso % (Auto) 1.1 Lymph # (Auto) 2.79 [place] # (Auto) 1.8 H Eos # (Auto) 0.6 H Baso # (Auto) 0.1 Abs Immat Gran (auto) 0.28 H Absolute Neuts (auto) 5.7 Absolute Nucleated RBC 0.000 Nucleated RBC % 0.0 Sodium 135 L Potassium 3.6 Chloride 97 L Carbon Dioxide 28 Anion Gap 10 BUN 26 H Creatinine 0.70 Estim Creat Clear Calc 55 Estimated GFR > 60 Glucose 204 H POC Capillary Glucose 223 H 195 H Calcium 8.4 Magnesium 1.7 Total Bilirubin 0.4 AST 30 ALT 19 Alkaline Phosphatase 138 H Total Protein 7.0 Albumin 3.3 L 04/17/24 11:57 WBC RBC Hgb Hct MCV MCH MCHC RDW Plt Count MPV Immature Gran % (Auto) Neut % (Auto) Lymph % (Auto) [place] % (Auto) Eos % (Auto) Baso % (Auto) Lymph # (Auto) [place] # (Auto) Eos # (Auto) Baso # (Auto) Abs Immat Gran (auto) Absolute Neuts (auto) Absolute Nucleated RBC Nucleated RBC % Sodium Potassium Chloride Carbon Dioxide Anion Gap BUN Creatinine Estim Creat Clear Calc Estimated GFR Glucose POC Capillary Glucose 252 H Calcium Magnesium Total Bilirubin AST ALT Alkaline Phosphatase Total Protein Albumin Hospitalist MIPS Advance Care Plan I have confirmed that the patient's Advanced Care Plan is present, code status is documented, or surrogate decision maker is listed in patient medical record.: Yes Medication Reconciliation I have utilized all available resources to obtain, update and review the patients current medications (includes all prescriptions, OTC, herbals, cannabis, and nutritional supplements).: Yes
[2024-04-17 17:12] LABS: Glucose Point of Care 149 mg/dl (65-105)
[2024-04-17 18:00] VITALS: BP 126/66; PULSE 82; RESP 17; TEMP 36.4; O2SAT 98
[2024-04-17 20:42] VITALS: BP 138/61; PULSE 110; RESP 20; TEMP 36.9; O2SAT 99
[2024-04-17 20:51] LABS: Glucose Point of Care 137 mg/dl (65-105)
[2024-04-17] MEDS: INSULIN GLARGINE (*BKC) 100 UNITS/ML 25 UNITS SUB-Q (20:59)
[2024-04-18] VITALS (9 sets, daily range): BP systolic 109–137; BP diastolic 56–66; PULSE 96–109; RESP 16–20; TEMP 36.3–36.9; O2SAT 91–99
[2024-04-18] MEDS: METOCLOPRAMIDE HCL INJ 10 MG/2 ML VIAL IV PUSH ×4 (00:03→18:09)
[2024-04-18] MEDS: CENTRAL LINE FLUSH 20 ML IV PUSH (05:18)
[2024-04-18] MEDS: CENTRAL LINE FLUSH 10 ML IV PUSH ×3 (05:19→21:18)
[2024-04-18 05:43] LABS: Hematocrit 31.6 % (37.0-47.0); Hemoglobin 10.1 g/dL (12.0-15.0); Mean Corpuscular Hemoglobin 29.9 pg (26-34); Mean Corpuscular Volume 93.5 fl (80-100); Mean Platelet Volume 10.3 fl (7.4-10.4); Platelet Count Result 645 k/mm3 (150-375); Red Blood Count 3.38 M/mm3 (4.2-5.4); Red Cell Distribution Width 15.2 % (11.5-14.5); White Blood Count 12.8 K/mm3 (4.5-10.0)
[2024-04-18 05:54] LABS: Alanine Aminotransferase 26 U/L (6-35); Albumin Level 3.3 g/dL (3.5-5.1); Alkaline Phosphatase 168 U/L (38-126); Anion Gap 9 mmol/L (4-12); Aspartate Amino Transferase 47 U/L (14-36); Bilirubin,Total 0.7 mg/dL (0.2-1.3); Blood Urea Nitrogen 27 mg/dL (7-17); Carbon Dioxide 28 mmol/L (22-30); Chloride 95 mmol/L (98-107); Estimated CRCL calculation 36 ml/min; Estimated Glomerular Filt Rate 49; Glucose 82 mg/dL (65-110); Potassium 3.9 mmol/L (3.4-5.0); Sodium 132 mmol/L (137-145)
--- NOTE | 2024-04-18 08:30 | PCOTNOTE ---
The patient treatment was not able to be completed. Patient reports she is to shaky right now but is agreeable to try later. Will plan to continue treatment per plan of care.
[2024-04-18 09:02] LABS: Glucose Point of Care 85 mg/dl (65-105)
[2024-04-18] MEDS: PREGABALIN (*CRX) 75 MG CAPSULE 300 MG PO ×2 (09:09→21:04)
[2024-04-18] MEDS: PANTOPRAZOLE 40 MG TABLET PO ×2 (09:09→21:04)
[2024-04-18] MEDS: polyethylene glycoL 3350 17 GM POWD.PACK PO (09:09)
[2024-04-18] MEDS: amLODIPine BESYLATE 10 MG TABLET PO (09:09)
[2024-04-18] MEDS: MEMANTINE 5 MG TABLET PO ×2 (09:09→18:09)
[2024-04-18] MEDS: ENOXAPARIN 40 MG/0.4 ML SYRINGE SUB-Q (09:10)
[2024-04-18] MEDS: ONDANSETRON INJ 4 MG/2 ML VIAL 8 MG IV PUSH (09:23)
[2024-04-18] MEDS: oxyCODONE/ACETAMINOPHEN (*CRX) 5-325 MG TABLET 1 TABLET PO (09:23)
--- NOTE | 2024-04-18 11:56 | PCNFU ---
Nutrition Follow-Up Complete: Inadequate oral intake related to altered GI function as evidenced by need for parenteral nutrition goal: Monitoring diet orders, GI function, stool patterns, weights, labs, plan of care Patient is progressing towards goal. We will continue current goal. Pt current nutrition is DBCC diet with Ensure compact BID. Last recorded weight is 62.5 kg, down from 64.5 kg on admit. Bowel Motility: +BM reported 04/17 Labs Reviewed:Cr 1.10, BUN 27, GFR 49, Na 132 Meds Noted:Reglan,Lantus, NovoLog Skin: WNL Additional Notes: Patient is off TPN. Tolerating full liquids today. Will be getting a DBCC diet tray for lunch. Ensure Compact BID for additional 220 kcal and 9 gm protein. Agree with diet orders. Will monitor weight, labs, skin, oral intake, meds every 5 days.
--- NOTE | 2024-04-18 13:14 | P.PNGS_ITS ---
Progress Note: A&P Assessment and Plan (1) Postoperative ileus: Code(s): K91.89 - Other postprocedural complications and disorders of digestive system; K56.7 - Ileus, unspecified Status: Acute Assessment and Plan: * Small-bowel follow-through showed contrast reaching the colon within 1 hour. NG tube was removed. * Advance to diabetic diet * Surgically stable for discharge once medically stable (2) Protein calorie malnutrition: Code(s): E46 - Unspecified protein-calorie malnutrition Status: Acute Assessment and Plan: * Ensure supplements. (3) Small bowel obstruction: Code(s): K56.609 - Unspecified intestinal obstruction, unspecified as to partial versus complete obstruction Status: Acute Assessment and Plan: * S/p exploratory laparotomy and extensive adhesiolysis with small-bowel resection. Small-bowel series showed no evidence of an obstruction. Subjective Subjective Date/Time Seen: 04/18/24 13:14 Interval history: Tolerating regular diet. No significant abdominal complaints. Mostly complains of headache and tremors. Exam GI: Inspection: non-distended and incision (intact with steri-strips) GI Palp: Yes Soft to palpation, No Tenderness to palpation present (GI), No Guarding due to palpation present (GI) and No Rebound tenderness present Percussion: Yes normal to percussion Auscultation: normal bowel sounds Objective Data Vital Signs Vital Signs: Vital Signs - 24 hr 04/17/24 14:00 04/17/24 18:00 04/17/24 20:42 Temperature 97.6 F 97.6 F 98.4 F Pulse Rate 89 82 110 H Respiratory Rate 18 17 20 Blood Pressure 128/63 126/66 138/61 Pulse Oximetry 96 98 99 Oxygen Delivery 04/18/24 00:09 04/18/24 06:00 04/18/24 09:08 Temperature 97.8 F 97.4 F L 98.3 F Pulse Rate 109 H 101 H 106 H Respiratory Rate 20 20 16 Blood Pressure 120/59 L 134/56 L 137/60 Pulse Oximetry 99 93 92 Oxygen Delivery 04/18/24 09:20 Temperature Pulse Rate Respiratory Rate Blood Pressure Pulse Oximetry Oxygen Delivery Room Air Intake/Output Intake/Output: Intake & Output 04/15/24 04/16/24 04/17/24 04/18/24 23:59 23:59 23:59 23:59 Intake Total 2252.5 2600.8 3092.5 640 Output Total 500 1814 1 500 Balance 1752.5 786.8 3091.5 140 Meds/Results Medications: Active Medications Generic Name Dose Route Start Last Admin Trade Name Freq PRN Reason Stop Dose Admin Alteplase, Recombinant 2 mg 04/13/24 18:16 04/13/24 19:54 Alteplase 2 Mg Vial (Cathflo) IV PUSH 2 mg ONCE PRN Administration Line Occlusion Amlodipine Besylate 10 mg 04/14/24 09:00 04/18/24 09:09 Amlodipine Besylate 10 Mg Tablet PO 10 mg DAILY SHAKILA Administration Bisacodyl 10 mg 04/11/24 18:00 04/17/24 17:06 Bisacodyl 5 Mg Tablet Ec PO Not Given QPM SHAKILA Dextrose 12.5 gm 04/05/24 13:22 Dextrose 50% 25 Gm/50 Ml Syringe IV PUSH PRN PRN Hypoglycemia Protocol Diphenhydramine HCl 25 mg 04/05/24 13:05 04/15/24 22:16 Diphenhydramine Hcl Inj 50 Mg/Ml Vial IV PUSH 25 mg Q4H PRN Administration Itching Enoxaparin Sodium 40 mg 04/05/24 09:00 04/18/24 09:10 Enoxaparin 40 Mg/0.4 Ml Syringe SUB-Q 40 mg DAILY SHAKILA Administration Glucagon 1 mg 04/05/24 13:22 Glucagon For Inj 1 Mg Vial IM PRN PRN Hypoglycemia Protocol Glucose 15 gm 04/05/24 13:22 Glucose Oral Gel 15 Gm Of Glucse In 37.5 Gm Tube PO PRN PRN Hypoglycemia Protocol Hydralazine HCl 10 mg 04/17/24 07:53 Hydralazine Hcl 20 Mg/Ml Vial IV PUSH Q8H PRN Blood Pressure - High Hydromorphone HCl 1 mg 04/04/24 21:53 04/16/24 23:50 Hydromorphone Hcl Inj (*Crx) 1 Mg/Ml Syr IV PUSH 1 mg Q2H PRN Administration Breakthrough Pain Rated 7-10 or NPO Hydromorphone HCl 0.5 mg 04/04/24 21:53 04/15/24 08:48 Hydromorphone Hcl Inj (*Crx) 1 Mg/Ml Syr IV PUSH 0.5 mg Q2H PRN Administration Breakthrough Pain Rated 4-6 or NPO Ibuprofen 800 mg in 200 mls @ 400 mls/hr 04/04/24 21:53 04/05/24 11:01 Caldolor 800 Mg/200 Ml IVPB Infused Q6H PRN Infusion Breakthrough Pain Rated 1-3 or NPO Dextrose 1,000 mls @ 100 mls/hr 04/05/24 13:22 Dextrose 5% 1,000 Ml IVPB PRN PRN Hypoglycemia Protocol Dextrose 1,000 mls @ 50 mls/hr 04/05/24 15:13 Dextrose 10% IV CONT .Q20H PRN if PN is interrupted Insulin Aspart 2 - 5 units 04/18/24 08:00 04/18/24 09:06 Insulin Aspart (*Bkc) 100 Units/Ml SUB-Q Not Given TIDWM SHAKILA Protocol Insulin Glargine 25 units 04/07/24 21:00 04/17/24 20:59 Insulin Glargine (*Bkc) 100 Units/Ml SUB-Q 25 units HS SHAKILA Administration Memantine 5 mg 04/13/24 17:00 04/18/24 09:09 Memantine 5 Mg Tablet PO 5 mg BID SHAKILA Administration Metoclopramide HCl 10 mg 04/14/24 18:00 04/18/24 05:17 Metoclopramide Hcl Inj 10 Mg/2 Ml Vial IV PUSH 10 mg Q6HR SHAKILA Administration Naloxone HCl 0.1 mg 04/04/24 21:53 Naloxone Hcl 0.4 Mg/Ml Vial IV PUSH Q2M PRN Opiate Reversal Ondansetron HCl 8 mg 04/03/24 10:15 04/18/24 09:23 Ondansetron Inj 4 Mg/2 Ml Vial IV PUSH 8 mg Q6H PRN Administration Nausea And Vomiting Oxycodone/Acetaminophen 1 tablet 04/11/24 10:49 04/18/24 09:23 Oxycodone/Acetaminophen (*Crx) 5-325 Mg Tablet PO 1 tablet Q4H PRN Administration Pain Rated 4-6 Oxycodone/Acetaminophen 2 tablet 04/11/24 10:49 04/17/24 17:06 Oxycodone/Acetaminophen (*Crx) 5-325 Mg Tablet PO 2 tablet Q4H PRN Administration Pain Rated 7-10 Pantoprazole Sodium 40 mg 04/17/24 09:00 11/08/24 09:09 Pantoprazole 40 Mg Tablet PO 40 mg Q12HR SHAKILA Administration Phenol 1 spray 04/03/24 22:07 04/03/24 23:37 Phenol/Sod Pheno [place] (*Bkc) MUCOUS MEM 1 spray PRN PRN Administration Sore Throat Polyethylene Glycol 17 gm 04/11/24 09:00 04/18/24 09:09 Polyethylene Glycol 3350 17 Gm Powd.Pack PO 17 gm QAM SHAKILA Administration Pregabalin 300 mg 04/14/24 09:00 04/18/24 09:09 Pregabalin (*Crx) 75 Mg Capsule PO 300 mg Q12HR SHAKILA Administration Promethazine HCl 25 mg 04/17/24 22:42 Promethazine Hcl 25 Mg Tablet PO Q4H PRN Nausea And Vomiting Sodium Chloride 20 ml 04/05/24 16:15 04/18/24 05:18 Central Line Flush IV PUSH 20 ml PRN PRN Administration after blood draws Sodium Chloride 10 ml 04/05/24 16:15 Central Line Flush IV PUSH PRN PRN with TPN bag changes Sodium Chloride 10 ml 04/05/24 22:00 04/18/24 05:19 Central Line Flush IV PUSH 10 ml Q8HR SHAKILA Administration Radiology Results: ITS Impressions Abdomen/Pelvis CT 04/02/24 05:56 IMPRESSION: 1. Small bowel obstruction with transition point in right abdomen. Abdomen X-Ray 04/14/24 15:55 IMPRESSION: 1. Nasogastric tube tip in the stomach. Small Bowel X-Ray 04/16/24 14:30 IMPRESSION: 1. Dilated small bowel with prompt passage of contrast to the colon, consistent with adynamic ileus. Chest X-Ray 04/18/24 11:17 Impression: 1: Left basilar atelectasis. Labs Labs: Laboratory Results - last 24 hr 04/17/24 04/17/24 04/18/24 16:56 20:41 05:24 WBC 12.8 H RBC 3.38 L Hgb 10.1 L Hct 31.6 L MCV 93.5 MCH 29.9 MCHC 32.0 RDW 15.2 H Plt Count 645 H MPV 10.3 Sodium 132 L Potassium 3.9 Chloride 95 L Carbon Dioxide 28 Anion Gap 9 BUN 27 H Creatinine 1.10 H Estim Creat Clear Calc 36 Estimated GFR 49 L Glucose 82 POC Capillary Glucose 149 H 137 H Calcium 9.0 Total Bilirubin 0.7 AST 47 H ALT 26 Alkaline Phosphatase 168 H Total Protein 7.0 Albumin 3.3 L 04/18/24 09:00 WBC RBC Hgb Hct MCV MCH MCHC RDW Plt Count MPV Sodium Potassium Chloride Carbon Dioxide Anion Gap BUN Creatinine Estim Creat Clear Calc Estimated GFR Glucose POC Capillary Glucose 85 Calcium Total Bilirubin AST ALT Alkaline Phosphatase Total Protein Albumin
[2024-04-18 13:28] LABS: Glucose Point of Care 113 mg/dl (65-105)
--- NOTE | 2024-04-18 14:07 | PM.IMPN ---
Progress Note: A&P Assessment and Plan (1) Small bowel obstruction: Code(s): K56.609 - Unspecified intestinal obstruction, unspecified as to partial versus complete obstruction Status: Acute (2) Diabetes mellitus: Code(s): E11.9 - Type 2 diabetes mellitus without complications Status: Acute Plan Small bowel obstruction: 04/04 Exploratory lap with SB resection, adhesiolysis, and ileostomy s/p NG tube Full liquid diet TPN running, monitor electrolytes on PRN pain control S/P water-soluble SBFT Gen surgery following Acute blood loss anemia Likely resulting from surgical procedure Hemoglobin 9.5, hemoglobin 13.3 upon arrival Isat 10 IV iron 1000/1000 monitor H and H JOANNE Started NS @ 100 ml.hr Possible due to dehydration Will trend Cr and BUN Electrolyte abnormality, resolving monitor and replace accordingly Trigeminal neuralgia Restarted Pregabalin 300mg bid monitor Hypoalbuminemia Albumin 3.1 today, upon arrival in 4.4 continue monitoring restart PO intake when cleared by gen surgery Diabetes mellitus: Insulin glargine 25 units HS Essential hypertension: Hydralazine 10 mg IV p.r.n. if blood pressure greater than 160 / 90 DVT prophylaxis on Lovenox Awaiting resumption of po intake for discharge Subjective Date/time seen: 04/18/24 14:07 Interval history: Today patient feels little tired and nauseous. Patient have episodes of tachycardia. Advised to follow PT OT. Because of the prolonged hospitalization has increased risk of DVT/PE. Order ultrasound of the lower extremity.Started NS @ 100 ml/hr for JOANNE. Possible due to dehydration. Nurse called around 15:30 wanted to re-evaluate the patient. Upon evaluation patient was found to be in tachycardia and low 90's. Ordered CTA ,12 lead EKG and UA as well. EKG shows shows new onset of A.Fib. Placed in tele and consulted cardiology. Review of Systems Review of Systems: All systems are reviewed and are negative unless stated otherwise in the HPI. All systems reviewed & are unremarkable except as noted in HPI and below ROS unobtainable: Yes unobtainable due to medical condition Exam Narrative: GENERAL: Ill-appearing in no acute distress. Well-nourished. - EYES: EOMI. Anicteric. - HENT: Moist mucous membranes. - LUNGS: Clear to auscultation bilaterally, no wheezing, rhonchi, or rales. - CARDIOVASCULAR: Regular rate and rhythm. No murmur. No JVD. - ABDOMEN: Soft, mild diffuse tender and non-distended. No palpable masses. Surgical wound is dry and clean, bowel sounds normoactive - EXTREMITIES: No edema. Peripheral pulses 2+. Non-tender. - NEUROLOGIC: No focal neurological deficits. CN II-XII grossly intact. General weakness, - PSYCHIATRIC: Awake, Alert and oriented x 3. Appropriate mood and affect. - SKIN: No rashes or lesions. Warm. - LYMPH: No cervical lymphadenopathy. Const: General: no acute distress, uncomfortable (Due to abdominal pain) and average body habitus Nutritional Appearance: average body habitus Orientation/consciousness: patient oriented x3 HENMT: Head: normocephalic and atraumatic Ears: hearing grossly normal bilaterally Mouth: Yes moist mucous membranes Eyes: General: appearance normal, both eyes and all related structures Pupils: Equal, round and reactive pupils present Neck: Neck: normal visual inspection and full ROM Resp: Effort & Inspection: no respiratory distress Auscultation: clear to auscultation bilaterally Cardio: Rate: regular rate Rhythm: regular rhythm Heart sounds: S1 normal heart sound present and S2 normal heart sound present Peripheral pulses: Peripheral pulses 2+ throughout GI: Inspection: distended, scar (3 vertical scars from the midline to the right mid abdomen) and no visible herniation Auscultation: Hypoactive bowel sounds present Skin: General skin exam: normal color Neuro: General: patient oriented x3, moves all extremities and no focal motor deficits Cranial nerves: Yes Equal, round and reactive pupils present Speech: normal speech Motor exam (neuro): 5/5 motor strength present throughout Extrem: General: normal to inspection and no edema Psych: Mental Status: mental status grossly normal Attitude: cooperative Insight: Good insight present (Psych) Judgement: Good judgement present (Psych) Objective Data Vital Signs Vital Signs: Vital Signs - 24 hr 04/17/24 18:00 04/17/24 20:42 04/18/24 00:09 Temperature 97.6 F 98.4 F 97.8 F Pulse Rate 82 110 H 109 H Respiratory Rate 17 20 20 Blood Pressure 126/66 138/61 120/59 L Pulse Oximetry 98 99 99 Oxygen Delivery 04/18/24 06:00 04/18/24 09:08 04/18/24 09:20 Temperature 97.4 F L 98.3 F Pulse Rate 101 H 106 H Respiratory Rate 20 16 Blood Pressure 134/56 L 137/60 Pulse Oximetry 93 92 Oxygen Delivery Room Air Intake/Output Intake/Output: Intake & Output 04/15/24 04/16/24 04/17/24 04/18/24 23:59 23:59 23:59 23:59 Intake Total 2252.5 2600.8 3092.5 640 Output Total 500 1814 1 500 Balance 1752.5 786.8 3091.5 140 Meds/Results Medications: Active Medications Generic Name Dose Route Start Last Admin Trade Name Freq PRN Reason Stop Dose Admin Alteplase, Recombinant 2 mg 04/13/24 18:16 04/13/24 19:54 Alteplase 2 Mg Vial (Cathflo) IV PUSH 2 mg ONCE PRN Administration Line Occlusion Amlodipine Besylate 10 mg 04/14/24 09:00 04/18/24 09:09 Amlodipine Besylate 10 Mg Tablet PO 10 mg DAILY SHAKILA Administration Bisacodyl 10 mg 04/11/24 18:00 04/17/24 17:06 Bisacodyl 5 Mg Tablet Ec PO Not Given QPM SHAKILA Dextrose 12.5 gm 04/05/24 13:22 Dextrose 50% 25 Gm/50 Ml Syringe IV PUSH PRN PRN Hypoglycemia Protocol Diphenhydramine HCl 25 mg 04/05/24 13:05 04/15/24 22:16 Diphenhydramine Hcl Inj 50 Mg/Ml Vial IV PUSH 25 mg Q4H PRN Administration Itching Enoxaparin Sodium 40 mg 04/05/24 09:00 04/18/24 09:10 Enoxaparin 40 Mg/0.4 Ml Syringe SUB-Q 40 mg DAILY SHAKILA Administration Glucagon 1 mg 04/05/24 13:22 Glucagon For Inj 1 Mg Vial IM PRN PRN Hypoglycemia Protocol Glucose 15 gm 04/05/24 13:22 Glucose Oral Gel 15 Gm Of Glucse In 37.5 Gm Tube PO PRN PRN Hypoglycemia Protocol Hydralazine HCl 10 mg 04/17/24 07:53 Hydralazine Hcl 20 Mg/Ml Vial IV PUSH Q8H PRN Blood Pressure - High Hydromorphone HCl 1 mg 04/04/24 21:53 04/16/24 23:50 Hydromorphone Hcl Inj (*Crx) 1 Mg/Ml Syr IV PUSH 1 mg Q2H PRN Administration Breakthrough Pain Rated 7-10 or NPO Hydromorphone HCl 0.5 mg 04/04/24 21:53 04/15/24 08:48 Hydromorphone Hcl Inj (*Crx) 1 Mg/Ml Syr IV PUSH 0.5 mg Q2H PRN Administration Breakthrough Pain Rated 4-6 or NPO Ibuprofen 800 mg in 200 mls @ 400 mls/hr 04/04/24 21:53 04/05/24 11:01 Caldolor 800 Mg/200 Ml IVPB Infused Q6H PRN Infusion Breakthrough Pain Rated 1-3 or NPO Dextrose 1,000 mls @ 100 mls/hr 04/05/24 13:22 Dextrose 5% 1,000 Ml IVPB PRN PRN Hypoglycemia Protocol Dextrose 1,000 mls @ 50 mls/hr 04/05/24 15:13 Dextrose 10% IV CONT .Q20H PRN if PN is interrupted Insulin Aspart 2 - 5 units 04/18/24 08:00 04/18/24 13:19 Insulin Aspart (*Bkc) 100 Units/Ml SUB-Q Not Given TIDWM [facility] Protocol Insulin Glargine 25 units 04/07/24 21:00 04/17/24 20:59 Insulin Glargine (*Bkc) 100 Units/Ml SUB-Q 25 units HS SHAKILA Administration Memantine 5 mg 04/13/24 17:00 04/18/24 09:09 Memantine 5 Mg Tablet PO 5 mg BID SHAKILA Administration Metoclopramide HCl 10 mg 04/14/24 18:00 04/18/24 13:20 Metoclopramide Hcl Inj 10 Mg/2 Ml Vial IV PUSH 10 mg Q6HR SHAKILA Administration Naloxone HCl 0.1 mg 04/04/24 21:53 Naloxone Hcl 0.4 Mg/Ml Vial IV PUSH Q2M PRN Opiate Reversal Ondansetron HCl 8 mg 04/03/24 10:15 04/18/24 09:23 Ondansetron Inj 4 Mg/2 Ml Vial IV PUSH 8 mg Q6H PRN Administration Nausea And Vomiting Oxycodone/Acetaminophen 1 tablet 04/11/24 10:49 04/18/24 09:23 Oxycodone/Acetaminophen (*Crx) 5-325 Mg Tablet PO 1 tablet Q4H PRN Administration Pain Rated 4-6 Oxycodone/Acetaminophen 2 tablet 04/11/24 10:49 04/17/24 17:06 Oxycodone/Acetaminophen (*Crx) 5-325 Mg Tablet PO 2 tablet Q4H PRN Administration Pain Rated 7-10 Pantoprazole Sodium 40 mg 04/17/24 09:00 04/18/24 09:09 Pantoprazole 40 Mg Tablet PO 40 mg Q12HR SHAKILA Administration Phenol 1 spray 04/03/24 22:07 04/03/24 23:37 Phenol/Sod Pheno [place] Strauss (*Bkc) MUCOUS MEM 1 spray PRN PRN Administration Sore Throat Polyethylene Glycol 17 gm 04/11/24 09:00 04/18/24 09:09 Polyethylene Glycol 3350 17 Gm Powd.Pack PO 17 gm QAM SHAKILA Administration Pregabalin 300 mg 04/14/24 09:00 04/18/24 09:09 Pregabalin (*Crx) 75 Mg Capsule PO 300 mg Q12HR SHAKILA Administration Promethazine HCl 25 mg 04/17/24 22:42 Promethazine Hcl 25 Mg Tablet PO Q4H PRN Nausea And Vomiting Sodium Chloride 20 ml 04/05/24 16:15 04/18/24 05:18 Central Line Flush IV PUSH 20 ml PRN PRN Administration after blood draws Sodium Chloride 10 ml 04/05/24 16:15 Central Line Flush IV PUSH PRN PRN with TPN bag changes Sodium Chloride 10 ml 04/05/24 22:00 04/18/24 13:20 Central Line Flush IV PUSH 10 ml Q8HR SHAKILA Administration Radiology Results: ITS Impressions Abdomen/Pelvis CT 04/02/24 05:56 IMPRESSION: 1. Small bowel obstruction with transition point in right abdomen. Abdomen X-Ray 04/14/24 15:55 IMPRESSION: 1. Nasogastric tube tip in the stomach. Small Bowel X-Ray 04/16/24 14:30 IMPRESSION: 1. Dilated small bowel with prompt passage of contrast to the colon, consistent with adynamic ileus. Chest X-Ray 04/18/24 11:17 Impression: 1: Left basilar atelectasis. Labs Labs: Laboratory Results - last 24 hr 04/17/24 04/17/24 04/18/24 16:56 20:41 05:24 WBC 12.8 H RBC 3.38 L Hgb 10.1 L Hct 31.6 L MCV 93.5 MCH 29.9 MCHC 32.0 RDW 15.2 H Plt Count 645 H MPV 10.3 Sodium 132 L Potassium 3.9 Chloride 95 L Carbon Dioxide 28 Anion Gap 9 BUN 27 H Creatinine 1.10 H Estim Creat Clear Calc 36 Estimated GFR 49 L Glucose 82 POC Capillary Glucose 149 H 137 H Calcium 9.0 Total Bilirubin 0.7 AST 47 H ALT 26 Alkaline Phosphatase 168 H Total Protein 7.0 Albumin 3.3 L 04/18/24 04/18/24 09:00 13:19 WBC RBC Hgb Hct MCV MCH MCHC RDW Plt Count MPV Sodium Potassium Chloride Carbon Dioxide Anion Gap BUN Creatinine Estim Creat Clear Calc Estimated GFR Glucose POC Capillary Glucose 85 113 H Calcium Total Bilirubin AST ALT Alkaline Phosphatase Total Protein Albumin Hospitalist MIPS Advance Care Plan I have confirmed that the patient's Advanced Care Plan is present, code status is documented, or surrogate decision maker is listed in patient medical record.: Yes Medication Reconciliation I have utilized all available resources to obtain, update and review the patients current medications (includes all prescriptions, OTC, herbals, cannabis, and nutritional supplements).: Yes
--- NOTE | 2024-04-18 15:31 | PCPTNOTE ---
Attempted PT re-evaluation, pt refused stating her eye was hurting and she is shaking too much today. Will follow. RN aware.
--- NOTE | 2024-04-18 15:57 | ECG_ITS ---
Test Date: 2024-04-18 16:25:41 Measurements Intervals [place] Rate: 117 P: 0 [place]: 0 QRS: -21 QRSD: 70 T: 14 QT: 349 QTc: 488 Interpretive Statements SINUS TACHYCARDIA LEFT VENTRICULAR HYPERTROPHY WITH ST-T CHANGE POOR R WAVE PROGRESSION, CONSIDER ANTERIOR INFARCT BASELINE ARTIFACT- I, II, III, AVR, AVL, AVF, V1-V6 ABNORMAL ECG Compared to ECG 04/07/2024 16:09:15 HEART RATE HAS INCREASED Electronically Signed On 04-18-2024 18:30:42 [employer] by Mikhail Toro D.O.
[2024-04-18 16:19] LABS: Glucose Point of Care 103 mg/dl (65-105)
[2024-04-18] MEDS: SODIUM CHLORIDE 0.9% IV 1,000 ML 100 ML IV CONT (18:09)
[2024-04-18 20:23] LABS: Glucose Point of Care 139 mg/dl (65-105)
[2024-04-19] VITALS (11 sets, daily range): BP systolic 128–143; BP diastolic 62–74; PULSE 84–103; RESP 16–18; TEMP 36.4–36.6; O2SAT 95–96
[2024-04-19] MEDS: METOCLOPRAMIDE HCL INJ 10 MG/2 ML VIAL IV PUSH ×3 (05:11→17:37)
[2024-04-19] MEDS: CENTRAL LINE FLUSH 10 ML IV PUSH ×3 (05:11→21:57)
[2024-04-19 05:40] LABS: Hematocrit 28.7 % (37.0-47.0); Hemoglobin 9.2 g/dL (12.0-15.0); Mean Corpuscular HGB Conc 32.1 g/dl (32-36); Mean Corpuscular Hemoglobin 29.7 pg (26-34); Mean Corpuscular Volume 92.6 fl (80-100); Mean Platelet Volume 9.9 fl (7.4-10.4); Platelet Count Result 418 k/mm3 (150-375); Red Cell Distribution Width 15.4 % (11.5-14.5); White Blood Count 13.9 K/mm3 (4.5-10.0)
[2024-04-19 05:50] LABS: Alanine Aminotransferase 29 U/L (6-35); Alkaline Phosphatase 159 U/L (38-126); Anion Gap 6 mmol/L (4-12); Aspartate Amino Transferase 42 U/L (14-36); Bilirubin,Total 0.9 mg/dL (0.2-1.3); Blood Urea Nitrogen 22 mg/dL (7-17); Calcium 8.4 mg/dL (8.4-10.2); Carbon Dioxide 26 mmol/L (22-30); Chloride 98 mmol/L (98-107); Estimated CRCL calculation 39 ml/min; Estimated Glomerular Filt Rate 55; Glucose 149 mg/dL (65-110); Potassium 3.9 mmol/L (3.4-5.0); Sodium 130 mmol/L (137-145)
[2024-04-19] MEDS: SODIUM CHLORIDE 0.9% IV 1,000 ML 100 ML IV CONT ×2 (05:52→15:20)
--- NOTE | 2024-04-19 09:05 | P.PNIM_ITS ---
Progress Note: A&P Assessment and Plan (1) Small bowel obstruction: Code(s): K56.609 - Unspecified intestinal obstruction, unspecified as to partial versus complete obstruction Status: Acute (2) Diabetes mellitus: Code(s): E11.9 - Type 2 diabetes mellitus without complications Status: Acute Plan Small bowel obstruction: 04/04 Exploratory lap with SB resection, adhesiolysis, and ileostomy s/p NG tube Full liquid diet NS on PRN pain control S/P water-soluble SBFT Gen surgery following Acute blood loss anemia Likely resulting from surgical procedure Hemoglobin 9.5, hemoglobin 13.3 upon arrival Isat 10 IV iron 1000/1000 monitor H and H JOANNE Started NS @ 100 ml.hr Possible due to dehydration Will trend Cr and BUN Electrolyte abnormality, resolving monitor and replace accordingly Trigeminal neuralgia Restarted Pregabalin 300mg bid monitor Hypoalbuminemia Albumin 3.1 today, upon arrival in 4.4 continue monitoring restart PO intake when cleared by gen surgery Diabetes mellitus: Insulin glargine 25 units HS Essential hypertension: Hydralazine 10 mg IV p.r.n. if blood pressure greater than 160 / 90 DVT prophylaxis on Lovenox Awaiting resumption of po intake for discharge Subjective Date/time seen: 04/19/24 09:05 Interval history: Patient had an episode of vomiting yesterday. Patient feels tired . Her renal functions are getting better after fluids . US LE resulted negative ,currently holding on CTA and cardiology consult. Review of Systems Review of Systems: All systems are reviewed and are negative unless stated otherwise in the HPI. All systems reviewed & are unremarkable except as noted in HPI and below ROS unobtainable: Yes unobtainable due to medical condition Exam Narrative: GENERAL: Ill-appearing in no acute distress. Well-nourished. - EYES: EOMI. Anicteric. - HENT: Moist mucous membranes. - LUNGS: Clear to auscultation bilateral ly, no wheezing, rhonchi, or rales. - CARDIOVASCULAR: Regular rate and rhyth m. No murmur. No JVD. - ABDOMEN: Soft, mild diffuse tender and non-distended. No palpable masses. Surgical wound is dry and clean, bowel sounds normoactive - EXTREMITIES: No edema. Peripheral puls es 2+. Non-tender. - NEUROLOGIC: No focal neurological defi cits. CN II-XII grossly intact. General weakness, - PSYCHIATRIC: Awake, Alert and oriented x 3. Appropriate mood and affect. - SKIN: No rashes or lesions. Warm. - LYMPH: No cervical lymphadenopathy. Const: General: no acute distress, uncomfortable (Due to abdominal pain) and average body habitus Nutritional Appearance: average body habitus Orientation/consciousness: patient oriented x3 HENMT: Head: normocephalic and atraumatic Ears: hearing grossly normal bilaterally Mouth: Yes moist mucous membranes Eyes: General: appearance normal, both eyes and all related structures Pupils: Equal, round and reactive pupils present Neck: Neck: normal visual inspection and full ROM Resp: Effort & Inspection: no respiratory distress Auscultation: clear to auscultation bilaterally Cardio: Rate: regular rate Rhythm: regular rhythm Heart sounds: S1 normal heart sound present and S2 normal heart sound present Peripheral pulses: Peripheral pulses 2+ throughout GI: Inspection: distended, scar (3 vertical scars from the midline to the right mid abdomen) and no visible herniation Auscultation: Hypoactive bowel sounds present Other: Abdomen is soft and only distended. Midline incision is healing well without redness or drainage. Some bowel sounds are noted. Urinary Catheter: Urinary Catheter: patent and draining and urine clear Skin: General skin exam: normal color Neuro: General: patient oriented x3, moves all extremities and no focal motor deficits Cranial nerves: Yes Equal, round and reactive pupils present Speech: normal speech Motor exam (neuro): 5/5 motor strength present throughout Extrem: General: normal to inspection and no edema Psych: Mental Status: mental status grossly normal Attitude: cooperative Insight: Good insight present (Psych) Judgement: Good judgement present (Psych) Objective Data Vital Signs Vital Signs: Vital Signs - 24 hr 04/18/24 09:08 04/18/24 09:20 04/18/24 14:00 Temperature 98.3 F 98.4 F Pulse Rate 106 H 107 H Respiratory Rate 16 16 Blood Pressure 137/60 118/56 L Pulse Oximetry 92 91 Oxygen Delivery Room Air Fraction of Inspired Oxygen 04/18/24 18:24 04/18/24 18:00 04/18/24 20:12 Temperature 98 F 98.0 F Pulse Rate 100 96 103 H Respiratory Rate 18 16 Blood Pressure 125/64 109/66 Pulse Oximetry 93 94 Oxygen Delivery Fraction of Inspired Oxygen 04/18/24 21:00 04/18/24 21:00 04/18/24 20:04 Temperature Pulse Rate 103 H 103 H 102 H Respiratory Rate 16 Blood Pressure Pulse Oximetry 94 Oxygen Delivery Room Air Fraction of Inspired Oxygen 28 04/19/24 00:01 04/19/24 04:04 04/19/24 05:13 Temperature 97.8 F Pulse Rate 102 H 100 99 Respiratory Rate 18 Blood Pressure 143/71 H Pulse Oximetry 95 Oxygen Delivery Fraction of Inspired Oxygen Intake/Output Intake/Output: Intake & Output 04/16/24 04/17/24 04/18/24 04/19/24 23:59 23:59 23:59 23:59 Intake Total 2600.8 3092.5 1860 2023 Output Total 1814 1 500 Balance 786.8 3091.5 1360 2023 Meds/Results Medications: Active Medications Generic Name Dose Route Start Last Admin Trade Name Freq PRN Reason Stop Dose Admin Alteplase, Recombinant 2 mg 04/13/24 18:16 04/13/24 19:54 Alteplase 2 Mg Vial (Cathflo) IV PUSH 2 mg ONCE PRN Administration Line Occlusion Amlodipine Besylate 10 mg 04/14/24 09:00 04/18/24 09:09 Amlodipine Besylate 10 Mg Tablet PO 10 mg DAILY SHAKILA Administration Bisacodyl 10 mg 04/11/24 18:00 04/18/24 18:09 Bisacodyl 5 Mg Tablet Ec PO Not Given QPM SHAKILA Dextrose 12.5 gm 04/05/24 13:22 Dextrose 50% 25 Gm/50 Ml Syringe IV PUSH PRN PRN Hypoglycemia Protocol Diphenhydramine HCl 25 mg 04/05/24 13:05 04/15/24 22:16 Diphenhydramine Hcl Inj 50 Mg/Ml Vial IV PUSH 25 mg Q4H PRN Administration Itching Enoxaparin Sodium 40 mg 04/05/24 09:00 04/18/24 09:10 Enoxaparin 40 Mg/0.4 Ml Syringe SUB-Q 40 mg DAILY SHAKILA Administration Glucagon 1 mg 04/05/24 13:22 Glucagon For Inj 1 Mg Vial IM PRN PRN Hypoglycemia Protocol Glucose 15 gm 04/05/24 13:22 Glucose Oral Gel 15 Gm Of Glucse In 37.5 Gm Tube PO PRN PRN Hypoglycemia Protocol Hydralazine HCl 10 mg 04/17/24 07:53 Hydralazine Hcl 20 Mg/Ml Vial IV PUSH Q8H PRN Blood Pressure - High Hydromorphone HCl 1 mg 04/04/24 21:53 04/16/24 23:50 Hydromorphone Hcl Inj (*Crx) 1 Mg/Ml Syr IV PUSH 1 mg Q2H PRN Administration Breakthrough Pain Rated 7-10 or NPO Hydromorphone HCl 0.5 mg 04/04/24 21:53 04/15/24 08:48 Hydromorphone Hcl Inj (*Crx) 1 Mg/Ml Syr IV PUSH 0.5 mg Q2H PRN Administration Breakthrough Pain Rated 4-6 or NPO Ibuprofen 800 mg in 200 mls @ 400 mls/hr 04/04/24 21:53 04/05/24 11:01 Caldolor 800 Mg/200 Ml IVPB Infused Q6H PRN Infusion Breakthrough Pain Rated 1-3 or NPO Dextrose 1,000 mls @ 100 mls/hr 04/05/24 13:22 Dextrose 5% 1,000 Ml IVPB PRN PRN Hypoglycemia Protocol Dextrose 1,000 mls @ 50 mls/hr 04/05/24 15:13 Dextrose 10% IV CONT .Q20H PRN if PN is interrupted Sodium Chloride 1,000 mls @ 100 mls/hr 04/18/24 16:35 04/19/24 05:52 Normal Saline Iv IV CONT 100 mls/hr .Q10H SHAKILA Administration Insulin Aspart 2 - 5 units 04/18/24 08:00 04/18/24 18:09 Insulin Aspart (*Bkc) 100 Units/Ml SUB-Q Not Given TIDWM [facility] Protocol Insulin Glargine 25 units 04/07/24 21:00 04/18/24 21:05 Insulin Glargine (*Bkc) 100 Units/Ml SUB-Q Not Given HS SHAKILA Memantine 5 mg 04/13/24 17:00 04/18/24 18:09 Memantine 5 Mg Tablet PO 5 mg BID SHAKILA Administration Metoclopramide HCl 10 mg 04/14/24 18:00 04/19/24 05:11 Metoclopramide Hcl Inj 10 Mg/2 Ml Vial IV PUSH 10 mg Q6HR SHAKILA Administration Naloxone HCl 0.1 mg 04/04/24 21:53 Naloxone Hcl 0.4 Mg/Ml Vial IV PUSH Q2M PRN Opiate Reversal Ondansetron HCl 8 mg 04/03/24 10:15 04/18/24 09:23 Ondansetron Inj 4 Mg/2 Ml Vial IV PUSH 8 mg Q6H PRN Administration Nausea And Vomiting Oxycodone/Acetaminophen 1 tablet 04/11/24 10:49 04/18/24 09:23 Oxycodone/Acetaminophen (*Crx) 5-325 Mg Tablet PO 1 tablet Q4H PRN Administration Pain Rated 4-6 Oxycodone/Acetaminophen 2 tablet 04/11/24 10:49 04/17/24 17:06 Oxycodone/Acetaminophen (*Crx) 5-325 Mg Tablet PO 2 tablet Q4H PRN Administration Pain Rated 7-10 Pantoprazole Sodium 40 mg 04/17/24 09:00 04/18/24 21:04 Pantoprazole 40 Mg Tablet PO 40 mg Q12HR SHAKILA Administration Phenol 1 spray 04/03/24 22:07 04/03/24 23:37 Phenol/Sod Pheno [place] (*Bkc) MUCOUS MEM 1 spray PRN PRN Administration Sore Throat Polyethylene Glycol 17 gm 04/11/24 09:00 04/18/24 09:09 Polyethylene Glycol 3350 17 Gm Powd.Pack PO 17 gm QAM SHAKILA Administration Pregabalin 300 mg 04/14/24 09:00 04/18/24 21:04 Pregabalin (*Crx) 75 Mg Capsule PO 300 mg Q12HR SHAKILA Administration Promethazine HCl 25 mg 04/17/24 22:42 Promethazine Hcl 25 Mg Tablet PO Q4H PRN Nausea And Vomiting Sodium Chloride 20 ml 04/05/24 16:15 04/18/24 05:18 Central Line Flush IV PUSH 20 ml PRN PRN Administration after blood draws Sodium Chloride 10 ml 04/05/24 16:15 Central Line Flush IV PUSH PRN PRN with TPN bag changes Sodium Chloride 10 ml 04/05/24 22:00 04/19/24 05:11 Central Line Flush IV PUSH 10 ml Q8HR SHAKILA Administration Radiology Results: ITS Impressions Abdomen/Pelvis CT 04/02/24 05:56 IMPRESSION: 1. Small bowel obstruction with transition point in right abdomen. Small Bowel X-Ray 04/16/24 14:30 IMPRESSION: 1. Dilated small bowel with prompt passage of contrast to the colon, consistent with adynamic ileus. Chest X-Ray 04/18/24 11:17 Impression: 1: Left basilar atelectasis. Venous Doppler Study 04/18/24 19:50 IMPRESSION: 1. No deep venous thrombosis. Abdomen X-Ray 04/19/24 08:43 IMPRESSION: 1. Persistently dilated small bowel, likely adynamic ileus. Labs Labs: Laboratory Results - last 24 hr 04/18/24 04/18/24 04/18/24 13:19 16:10 20:18 WBC RBC Hgb Hct MCV MCH MCHC RDW Plt Count MPV Sodium Potassium Chloride Carbon Dioxide Anion Gap BUN Creatinine Estim Creat Clear Calc Estimated GFR Glucose POC Capillary Glucose 113 H 103 139 H Calcium Total Bilirubin AST ALT Alkaline Phosphatase Total Protein Albumin 04/19/24 05:34 WBC 13.9 H RBC 3.10 L Hgb 9.2 L Hct 28.7 L MCV 92.6 MCH 29.7 MCHC 32.1 RDW 15.4 H Plt Count 418 H MPV 9.9 Sodium 130 L Potassium 3.9 Chloride 98 Carbon Dioxide 26 Anion Gap 6 BUN 22 H Creatinine 1.00 Estim Creat Clear Calc 39 Estimated GFR 55 L Glucose 149 H POC Capillary Glucose Calcium 8.4 Total Bilirubin 0.9 AST 42 H ALT 29 Alkaline Phosphatase 159 H Total Protein 6.0 L Albumin 3.0 L Hospitalist MIPS Advance Care Plan I have confirmed that the patient's Advanced Care Plan is present, code status is documented, or surrogate decision maker is listed in patient medical record.: Yes Medication Reconciliation I have utilized all available resources to obtain, update and review the patients current medications (includes all prescriptions, OTC, herbals, cannabis, and nutritional supplements).: Yes
[2024-04-19 09:57] LABS: Glucose Point of Care 134 mg/dl (65-105)
--- NOTE | 2024-04-19 09:57 | PCPTNOTE ---
attempted PT re-eval, pt adamantly refused to participate despite education on the importance of participation and mobility, pt stated that she is not getting up and to come back another day, 2nd day in a row that pt refused re-eval, will follow
[2024-04-19] MEDS: ENOXAPARIN 40 MG/0.4 ML SYRINGE SUB-Q (10:05)
[2024-04-19] MEDS: ONDANSETRON INJ 4 MG/2 ML VIAL 8 MG IV PUSH ×2 (10:13→17:44)
--- NOTE | 2024-04-19 10:41 | PM.PNGS ---
Progress Note: A&P Assessment and Plan (1) Postoperative ileus: Code(s): K91.89 - Other postprocedural complications and disorders of digestive system; K56.7 - Ileus, unspecified Status: Acute Assessment and Plan: feels better this am, exam benign, +bowel fxn, ok to ADAT, encourage OOB Subjective Subjective Date/Time Seen: 04/19/24 10:41 Interval history: episode of emesis overnight, feels better now, +bowel fxn, taran clears Review of Systems Review of Systems: All systems reviewed & are unremarkable except as noted in HPI and below Exam Const: General: cooperative, comfortable and no acute distress Resp: Auscultation: clear to auscultation bilaterally Cardio: Rate: regular rate Rhythm: regular rhythm GI: Inspection: normal to inspection, non-distended and incision GI Palp: No abdominal tenderness, Yes Soft to palpation, No Tenderness to palpation present (GI), No Guarding due to palpation present (GI) and No Rigid due to palpation Objective Data Vital Signs Vital Signs: Vital Signs - 24 hr 04/18/24 14:00 04/18/24 18:24 04/18/24 18:00 Temperature 36.9 C 36.6 C Pulse Rate 107 H 100 96 Respiratory Rate 16 18 Blood Pressure 118/56 L 125/64 Pulse Oximetry 91 93 Oxygen Delivery Fraction of Inspired Oxygen 04/18/24 20:12 04/18/24 21:00 04/18/24 21:00 Temperature 36.7 C Pulse Rate 103 H 103 H 103 H Respiratory Rate 16 16 Blood Pressure 109/66 Pulse Oximetry 94 94 Oxygen Delivery Room Air Fraction of Inspired Oxygen 28 04/18/24 20:04 04/19/24 00:01 04/19/24 04:04 Temperature Pulse Rate 102 H 102 H 100 Respiratory Rate Blood Pressure Pulse Oximetry Oxygen Delivery Fraction of Inspired Oxygen 04/19/24 05:13 Temperature 36.6 C Pulse Rate 99 Respiratory Rate 18 Blood Pressure 143/71 H Pulse Oximetry 95 Oxygen Delivery Fraction of Inspired Oxygen Intake/Output Intake/Output: Intake & Output 04/16/24 04/17/24 04/18/24 04/19/24 23:59 23:59 23:59 23:59 Intake Total 2600.8 3092.5 1860 2592 Output Total 1814 1 500 Balance 786.8 3091.5 1360 2592 Meds/Results Medications: Active Medications Generic Name Dose Route Start Last Admin Trade Name Freq PRN Reason Stop Dose Admin Alteplase, Recombinant 2 mg 04/13/24 18:16 04/13/24 19:54 Alteplase 2 Mg Vial (Cathflo) IV PUSH 2 mg ONCE PRN Administration Line Occlusion Amlodipine Besylate 10 mg 04/14/24 09:00 04/18/24 09:09 Amlodipine Besylate 10 Mg Tablet PO 10 mg DAILY SHAKILA Administration Bisacodyl 10 mg 04/11/24 18:00 04/18/24 18:09 Bisacodyl 5 Mg Tablet Ec PO Not Given QPM SHAKILA Dextrose 12.5 gm 04/05/24 13:22 Dextrose 50% 25 Gm/50 Ml Syringe IV PUSH PRN PRN Hypoglycemia Protocol Diphenhydramine HCl 25 mg 04/05/24 13:05 04/15/24 22:16 Diphenhydramine Hcl Inj 50 Mg/Ml Vial IV PUSH 25 mg Q4H PRN Administration Itching Enoxaparin Sodium 40 mg 04/05/24 09:00 04/19/24 10:05 Enoxaparin 40 Mg/0.4 Ml Syringe SUB-Q 40 mg DAILY SHAKILA Administration Glucagon 1 mg 04/05/24 13:22 Glucagon For Inj 1 Mg Vial IM PRN PRN Hypoglycemia Protocol Glucose 15 gm 04/05/24 13:22 Glucose Oral Gel 15 Gm Of Glucse In 37.5 Gm Tube PO PRN PRN Hypoglycemia Protocol Hydralazine HCl 10 mg 04/17/24 07:53 Hydralazine Hcl 20 Mg/Ml Vial IV PUSH Q8H PRN Blood Pressure - High Hydromorphone HCl 1 mg 04/04/24 21:53 04/16/24 23:50 Hydromorphone Hcl Inj (*Crx) 1 Mg/Ml Syr IV PUSH 1 mg Q2H PRN Administration Breakthrough Pain Rated 7-10 or NPO Hydromorphone HCl 0.5 mg 04/04/24 21:53 04/15/24 08:48 Hydromorphone Hcl Inj (*Crx) 1 Mg/Ml Syr IV PUSH 0.5 mg Q2H PRN Administration Breakthrough Pain Rated 4-6 or NPO Ibuprofen 800 mg in 200 mls @ 400 mls/hr 04/04/24 21:53 04/05/24 11:01 Caldolor 800 Mg/200 Ml IVPB Infused Q6H PRN Infusion Breakthrough Pain Rated 1-3 or NPO Dextrose 1,000 mls @ 100 mls/hr 04/05/24 13:22 Dextrose 5% 1,000 Ml IVPB PRN PRN Hypoglycemia Protocol Dextrose 1,000 mls @ 50 mls/hr 04/05/24 15:13 Dextrose 10% IV CONT .Q20H PRN if PN is interrupted Sodium Chloride 1,000 mls @ 100 mls/hr 04/18/24 16:35 04/19/24 05:52 Normal Saline Iv IV CONT 100 mls/hr .Q10H SHAKILA Administration Insulin Aspart 2 - 5 units 04/18/24 08:00 04/19/24 09:54 Insulin Aspart (*Bkc) 100 Units/Ml SUB-Q Not Given TIDWM SHAKILA Protocol Insulin Glargine 25 units 04/07/24 21:00 04/18/24 21:05 Insulin Glargine (*Bkc) 100 Units/Ml SUB-Q Not Given HS SHAKILA Memantine 5 mg 04/13/24 17:00 04/18/24 18:09 Memantine 5 Mg Tablet PO 5 mg BID SHAKILA Administration Metoclopramide HCl 10 mg 04/14/24 18:00 04/19/24 05:11 Metoclopramide Hcl Inj 10 Mg/2 Ml Vial IV PUSH 10 mg Q6HR SHAKILA Administration Naloxone HCl 0.1 mg 04/04/24 21:53 Naloxone Hcl 0.4 Mg/Ml Vial IV PUSH Q2M PRN Opiate Reversal Ondansetron HCl 8 mg 04/03/24 10:15 04/19/24 10:13 Ondansetron Inj 4 Mg/2 Ml Vial IV PUSH 8 mg Q6H PRN Administration Nausea And Vomiting Oxycodone/Acetaminophen 1 tablet 04/11/24 10:49 04/18/24 09:23 Oxycodone/Acetaminophen (*Crx) 5-325 Mg Tablet PO 1 tablet Q4H PRN Administration Pain Rated 4-6 Oxycodone/Acetaminophen 2 tablet 04/11/24 10:49 04/17/24 17:06 Oxycodone/Acetaminophen (*Crx) 5-325 Mg Tablet PO 2 tablet Q4H PRN Administration Pain Rated 7-10 Pantoprazole Sodium 40 mg 04/17/24 09:00 04/18/24 21:04 Pantoprazole 40 Mg Tablet PO 40 mg Q12HR SHAKILA Administration Phenol 1 spray 04/03/24 22:07 04/03/24 23:37 Phenol/Sod Pheno [place] (*Bkc) MUCOUS MEM 1 spray PRN PRN Administration Sore Throat Polyethylene Glycol 17 gm 04/11/24 09:00 04/18/24 09:09 Polyethylene Glycol 3350 17 Gm Powd.Pack PO 17 gm QAM SHAKILA Administration Pregabalin 300 mg 04/14/24 09:00 04/18/24 21:04 Pregabalin (*Crx) 75 Mg Capsule PO 300 mg Q12HR SHAKILA Administration Promethazine HCl 25 mg 04/17/24 22:42 Promethazine Hcl 25 Mg Tablet PO Q4H PRN Nausea And Vomiting Sodium Chloride 20 ml 04/05/24 16:15 04/18/24 05:18 Central Line Flush IV PUSH 20 ml PRN PRN Administration after blood draws Sodium Chloride 10 ml 04/05/24 16:15 Central Line Flush IV PUSH PRN PRN with TPN bag changes Sodium Chloride 10 ml 04/05/24 22:00 04/19/24 05:11 Central Line Flush IV PUSH 10 ml Q8HR SHAKILA Administration Radiology Results: ITS Impressions Abdomen/Pelvis CT 04/02/24 05:56 IMPRESSION: 1. Small bowel obstruction with transition point in right abdomen. Small Bowel X-Ray 04/16/24 14:30 IMPRESSION: 1. Dilated small bowel with prompt passage of contrast to the colon, consistent with adynamic ileus. Chest X-Ray 04/18/24 11:17 Impression: 1: Left basilar atelectasis. Venous Doppler Study 04/18/24 19:50 IMPRESSION: 1. No deep venous thrombosis. Abdomen X-Ray 04/19/24 08:43 IMPRESSION: 1. Persistently dilated small bowel, likely adynamic ileus. Labs Labs: Laboratory Results - last 24 hr 04/18/24 04/18/24 04/18/24 13:19 16:10 20:18 WBC RBC Hgb Hct MCV MCH MCHC RDW Plt Count MPV Sodium Potassium Chloride Carbon Dioxide Anion Gap BUN Creatinine Estim Creat Clear Calc Estimated GFR Glucose POC Capillary Glucose 113 H 103 139 H Calcium Total Bilirubin AST ALT Alkaline Phosphatase Total Protein Albumin 04/19/24 04/19/24 05:34 09:54 WBC 13.9 H RBC 3.10 L Hgb 9.2 L Hct 28.7 L MCV 92.6 MCH 29.7 MCHC 32.1 RDW 15.4 H Plt Count 418 H MPV 9.9 Sodium 130 L Potassium 3.9 Chloride 98 Carbon Dioxide 26 Anion Gap 6 BUN 22 H Creatinine 1.00 Estim Creat Clear Calc 39 Estimated GFR 55 L Glucose 149 H POC Capillary Glucose 134 H Calcium 8.4 Total Bilirubin 0.9 AST 42 H ALT 29 Alkaline Phosphatase 159 H Total Protein 6.0 L Albumin 3.0 L
[2024-04-19 12:16] LABS: Glucose Point of Care 149 mg/dl (65-105)
[2024-04-19] MEDS: amLODIPine BESYLATE 10 MG TABLET PO (12:22)
[2024-04-19] MEDS: PREGABALIN (*CRX) 75 MG CAPSULE 300 MG PO ×2 (12:23→21:56)
[2024-04-19] MEDS: PANTOPRAZOLE 40 MG TABLET PO ×2 (12:23→21:56)
[2024-04-19] MEDS: polyethylene glycoL 3350 17 GM POWD.PACK PO (12:23)
[2024-04-19 17:31] LABS: Glucose Point of Care 142 mg/dl (65-105)
[2024-04-19] MEDS: MEMANTINE 5 MG TABLET PO (17:37)
[2024-04-19] MEDS: BISACODYL 5 MG TABLET EC 10 MG PO (17:37)
[2024-04-19] MEDS: oxyCODONE/ACETAMINOPHEN (*CRX) 5-325 MG TABLET 1 TABLET PO (17:44)
[2024-04-20] VITALS (8 sets, daily range): BP systolic 126–133; BP diastolic 64–74; PULSE 82–100; RESP 17–18; TEMP 36.5–36.9; O2SAT 97
[2024-04-20 00:28] LABS: Glucose Point of Care 130 mg/dl (65-105)
[2024-04-20] MEDS: METOCLOPRAMIDE HCL INJ 10 MG/2 ML VIAL IV PUSH ×3 (00:58→13:12)
[2024-04-20] MEDS: SODIUM CHLORIDE 0.9% IV 1,000 ML 100 ML IV CONT ×2 (02:44→13:12)
[2024-04-20 04:46] LABS: Hematocrit 26.1 % (37.0-47.0); Hemoglobin 8.6 g/dL (12.0-15.0); Mean Corpuscular Hemoglobin 30.1 pg (26-34); Mean Corpuscular Volume 91.3 fl (80-100); Mean Platelet Volume 9.9 fl (7.4-10.4); Platelet Count Result 346 k/mm3 (150-375); Red Blood Count 2.86 M/mm3 (4.2-5.4); Red Cell Distribution Width 15.2 % (11.5-14.5); White Blood Count 8.2 K/mm3 (4.5-10.0)
[2024-04-20 05:00] LABS: Alanine Aminotransferase 25 U/L (6-35); Albumin Level 2.7 g/dL (3.5-5.1); Alkaline Phosphatase 156 U/L (38-126); Anion Gap 5 mmol/L (4-12); Aspartate Amino Transferase 33 U/L (14-36); Bilirubin,Total 0.8 mg/dL (0.2-1.3); Blood Urea Nitrogen 13 mg/dL (7-17); Calcium 7.7 mg/dL (8.4-10.2); Carbon Dioxide 25 mmol/L (22-30); Chloride 104 mmol/L (98-107); Estimated CRCL calculation 48 ml/min; Estimated Glomerular Filt Rate > 60; Glucose 116 mg/dL (65-110); Potassium 3.6 mmol/L (3.4-5.0); Sodium 134 mmol/L (137-145)
[2024-04-20] MEDS: CENTRAL LINE FLUSH 10 ML IV PUSH ×2 (05:08→13:12)
[2024-04-20 08:23] LABS: Glucose Point of Care 122 mg/dl (65-105)
--- NOTE | 2024-04-20 09:48 | PM.IMPN ---
Progress Note: A&P Assessment and Plan (1) Small bowel obstruction: Code(s): K56.609 - Unspecified intestinal obstruction, unspecified as to partial versus complete obstruction Status: Acute (2) Diabetes mellitus: Code(s): E11.9 - Type 2 diabetes mellitus without complications Status: Acute Plan Small bowel obstruction: 04/04 Exploratory lap with SB resection, adhesiolysis, and ileostomy s/p NG tube Full liquid diet NS on PRN pain control S/P water-soluble SBFT Gen surgery following Acute blood loss anemia Likely resulting from surgical procedure Hemoglobin 9.5, hemoglobin 13.3 upon arrival Isat 10 IV iron 1000/1000 monitor H and H JOANNE Started NS @ 100 ml.hr Possible due to dehydration Will trend Cr and BUN Electrolyte abnormality, resolving monitor and replace accordingly Trigeminal neuralgia Restarted Pregabalin 300mg bid monitor Hypoalbuminemia Albumin 3.1 today, upon arrival in 4.4 continue monitoring Diabetes mellitus: Insulin glargine 25 units HS Essential hypertension: Hydralazine 10 mg IV p.r.n. if blood pressure greater than 160 / 90 DVT prophylaxis on Lovenox Awaiting resumption of po intake for discharge Subjective Date/time seen: 04/20/24 09:48 Interval history: Patient doing well today. Denies any nausea or vomiting. Had one episode of diarrhea yesterday night. Tolerates food well. Wants to go home. Review of Systems Review of Systems: All systems are reviewed and are negative unless stated otherwise in the HPI. All systems reviewed & are unremarkable except as noted in HPI and below ROS unobtainable: Yes unobtainable due to medical condition Exam Narrative: GENERAL: Ill-appearing in no acute distress. Well-nourished. - EYES: EOMI. Anicteric. - HENT: Moist mucous membranes. - LUNGS: Clear to auscultation bilaterally, no wheezing, rhonchi, or rales. - CARDIOVASCULAR: Regular rate and rhythm. No murmur. No JVD. - ABDOMEN: Soft, mild diffuse tender and non-distended. No palpable masses. Surgical wound is dry and clean, bowel sounds normoactive - EXTREMITIES: No edema. Peripheral pulses 2+. Non-tender. - NEUROLOGIC: No focal neurological deficits. CN II-XII grossly intact. General weakness, - PSYCHIATRIC: Awake, Alert and oriented x 3. Appropriate mood and affect. - SKIN: No rashes or lesions. Warm. - LYMPH: No cervical lymphadenopathy. Const: General: no acute distress, uncomfortable (Due to abdominal pain) and average body habitus Nutritional Appearance: average body habitus Orientation/consciousness: patient oriented x3 HENMT: Head: normocephalic and atraumatic Ears: hearing grossly normal bilaterally Mouth: Yes moist mucous membranes Eyes: General: appearance normal, both eyes and all related structures Pupils: Equal, round and reactive pupils present Neck: Neck: normal visual inspection and full ROM Resp: Effort & Inspection: no respiratory distress Auscultation: clear to auscultation bilaterally Cardio: Rate: regular rate Rhythm: regular rhythm Heart sounds: S1 normal heart sound present and S2 normal heart sound present Peripheral pulses: Peripheral pulses 2+ throughout GI: Inspection: distended, scar (3 vertical scars from the midline to the right mid abdomen) and no visible herniation Auscultation: Hypoactive bowel sounds present Other: Abdomen is soft and only distended. Midline incision is healing well without redness or drainage. Some bowel sounds are noted. Urinary Catheter: Urinary Catheter: patent and draining and urine clear Skin: General skin exam: normal color Neuro: General: patient oriented x3, moves all extremities and no focal motor deficits Cranial nerves: Yes Equal, round and reactive pupils present Speech: normal speech Motor exam (neuro): 5/5 motor strength present throughout Extrem: General: normal to inspection and no edema Psych: Mental Status: mental status grossly normal Attitude: cooperative Insight: Good insight present (Psych) Judgement: Good judgement present (Psych) Objective Data Vital Signs Vital Signs: Vital Signs - 24 hr 04/19/24 10:00 04/19/24 10:00 04/19/24 12:00 Temperature 97.6 F Pulse Rate 90 101 H Respiratory Rate 18 Blood Pressure 138/68 Pulse Oximetry 95 Oxygen Delivery Room Air Fraction of Inspired Oxygen 04/19/24 14:00 04/19/24 16:00 04/19/24 21:45 Temperature 97.5 F L Pulse Rate 84 95 95 Respiratory Rate 17 17 Blood Pressure 128/62 Pulse Oximetry 95 95 Oxygen Delivery Room Air Fraction of Inspired Oxygen 28 04/19/24 20:03 04/20/24 00:01 04/20/24 04:03 Temperature Pulse Rate 95 95 93 Respiratory Rate Blood Pressure Pulse Oximetry Oxygen Delivery Fraction of Inspired Oxygen 04/20/24 05:01 04/20/24 08:26 Temperature 98.4 F Pulse Rate 91 Respiratory Rate 18 Blood Pressure 133/64 Pulse Oximetry 97 Oxygen Delivery Room Air Fraction of Inspired Oxygen Intake/Output Intake/Output: Intake & Output 04/17/24 04/18/24 04/19/24 04/20/24 23:59 23:59 23:59 23:59 Intake Total 3092.5 1860 3658.7 1550 Output Total 1 500 Balance 3091.5 1360 3658.7 1550 Meds/Results Medications: Active Medications Generic Name Dose Route Start Last Admin Trade Name Freq PRN Reason Stop Dose Admin Alteplase, Recombinant 2 mg 04/13/24 18:16 04/13/24 19:54 Alteplase 2 Mg Vial (Cathflo) IV PUSH 2 mg ONCE PRN Administration Line Occlusion Amlodipine Besylate 10 mg 04/14/24 09:00 04/19/24 12:22 Amlodipine Besylate 10 Mg Tablet PO 10 mg DAILY SHAKILA Administration Bisacodyl 10 mg 04/11/24 18:00 04/19/24 17:37 Bisacodyl 5 Mg Tablet Ec PO 10 mg QPM SHAKILA Administration Dextrose 12.5 gm 04/05/24 13:22 Dextrose 50% 25 Gm/50 Ml Syringe IV PUSH PRN PRN Hypoglycemia Protocol Diphenhydramine HCl 25 mg 04/05/24 13:05 04/15/24 22:16 Diphenhydramine Hcl Inj 50 Mg/Ml Vial IV PUSH 25 mg Q4H PRN Administration Itching Enoxaparin Sodium 40 mg 04/05/24 09:00 04/19/24 10:05 Enoxaparin 40 Mg/0.4 Ml Syringe SUB-Q 40 mg DAILY SHAKILA Administration Glucagon 1 mg 04/05/24 13:22 Glucagon For Inj 1 Mg Vial IM PRN PRN Hypoglycemia Protocol Glucose 15 gm 04/05/24 13:22 Glucose Oral Gel 15 Gm Of Glucse In 37.5 Gm Tube PO PRN PRN Hypoglycemia Protocol Hydralazine HCl 10 mg 04/17/24 07:53 Hydralazine Hcl 20 Mg/Ml Vial IV PUSH Q8H PRN Blood Pressure - High Hydromorphone HCl 1 mg 04/04/24 21:53 04/16/24 23:50 Hydromorphone Hcl Inj (*Crx) 1 Mg/Ml Syr IV PUSH 1 mg Q2H PRN Administration Breakthrough Pain Rated 7-10 or NPO Hydromorphone HCl 0.5 mg 04/04/24 21:53 04/15/24 08:48 Hydromorphone Hcl Inj (*Crx) 1 Mg/Ml Syr IV PUSH 0.5 mg Q2H PRN Administration Breakthrough Pain Rated 4-6 or NPO Ibuprofen 800 mg in 200 mls @ 400 mls/hr 04/04/24 21:53 04/05/24 11:01 Caldolor 800 Mg/200 Ml IVPB Infused Q6H PRN Infusion Breakthrough Pain Rated 1-3 or NPO Dextrose 1,000 mls @ 100 mls/hr 04/05/24 13:22 Dextrose 5% 1,000 Ml IVPB PRN PRN Hypoglycemia Protocol Dextrose 1,000 mls @ 50 mls/hr 04/05/24 15:13 Dextrose 10% IV CONT .Q20H PRN if PN is interrupted Sodium Chloride 1,000 mls @ 100 mls/hr 04/18/24 16:35 04/20/24 02:44 Normal Saline Iv IV CONT 100 mls/hr .Q10H SHAKILA Administration Insulin Aspart 2 - 5 units 04/18/24 08:00 04/20/24 08:16 Insulin Aspart (*Bkc) 100 Units/Ml SUB-Q Not Given TIDWM COUNTS INCLUDE 234 BEDS AT [facility] Protocol Insulin Glargine 25 units 04/07/24 21:00 04/19/24 21:46 Insulin Glargine (*Bkc) 100 Units/Ml SUB-Q Not Given HS SHAKILA Memantine 5 mg 04/13/24 17:00 04/19/24 17:37 Memantine 5 Mg Tablet PO 5 mg BID SHAKILA Administration Metoclopramide HCl 10 mg 04/14/24 18:00 04/20/24 05:08 Metoclopramide Hcl Inj 10 Mg/2 Ml Vial IV PUSH 10 mg Q6HR SHAKILA Administration Naloxone HCl 0.1 mg 04/04/24 21:53 Naloxone Hcl 0.4 Mg/Ml Vial IV PUSH Q2M PRN Opiate Reversal Ondansetron HCl 8 mg 04/03/24 10:15 04/19/24 17:44 Ondansetron Inj 4 Mg/2 Ml Vial IV PUSH 8 mg Q6H PRN Administration Nausea And Vomiting Oxycodone/Acetaminophen 1 tablet 04/11/24 10:49 04/19/24 17:44 Oxycodone/Acetaminophen (*Crx) 5-325 Mg Tablet PO 1 tablet Q4H PRN Administration Pain Rated 4-6 Oxycodone/Acetaminophen 2 tablet 04/11/24 10:49 04/17/24 17:06 Oxycodone/Acetaminophen (*Crx) 5-325 Mg Tablet PO 2 tablet Q4H PRN Administration Pain Rated 7-10 Pantoprazole Sodium 40 mg 04/17/24 09:00 04/19/24 21:56 Pantoprazole 40 Mg Tablet PO 40 mg Q12HR SHAKILA Administration Phenol 1 spray 04/03/24 22:07 04/03/24 23:37 Phenol/Sod Pheno [place] Strauss (*Bkc) MUCOUS MEM 1 spray PRN PRN Administration Sore Throat Polyethylene Glycol 17 gm 04/11/24 09:00 04/19/24 12:23 Polyethylene Glycol 3350 17 Gm Powd.Pack PO 17 gm QAM SHAKILA Administration Pregabalin 300 mg 04/14/24 09:00 04/19/24 21:56 Pregabalin (*Crx) 75 Mg Capsule PO 300 mg Q12HR SHAKILA Administration Promethazine HCl 25 mg 04/17/24 22:42 Promethazine Hcl 25 Mg Tablet PO Q4H PRN Nausea And Vomiting Sodium Chloride 20 ml 04/05/24 16:15 04/18/24 05:18 Central Line Flush IV PUSH 20 ml PRN PRN Administration after blood draws Sodium Chloride 10 ml 04/05/24 16:15 Central Line Flush IV PUSH PRN PRN with TPN bag changes Sodium Chloride 10 ml 04/05/24 22:00 04/20/24 05:08 Central Line Flush IV PUSH 10 ml Q8HR SHAKILA Administration Radiology Results: ITS Impressions Abdomen/Pelvis CT 04/02/24 05:56 IMPRESSION: 1. Small bowel obstruction with transition point in right abdomen. Small Bowel X-Ray 04/16/24 14:30 IMPRESSION: 1. Dilated small bowel with prompt passage of contrast to the colon, consistent with adynamic ileus. Chest X-Ray 04/18/24 11:17 Impression: 1: Left basilar atelectasis. Venous Doppler Study 04/18/24 19:50 IMPRESSION: 1. No deep venous thrombosis. Abdomen X-Ray 04/19/24 08:43 IMPRESSION: 1. Persistently dilated small bowel, likely adynamic ileus. Labs Labs: Laboratory Results - last 24 hr 04/19/24 04/19/24 04/19/24 09:54 12:01 17:25 WBC RBC Hgb Hct MCV MCH MCHC RDW Plt Count MPV Sodium Potassium Chloride Carbon Dioxide Anion Gap BUN Creatinine Estim Creat Clear Calc Estimated GFR Glucose POC Capillary Glucose 134 H 149 H 142 H Calcium Total Bilirubin AST ALT Alkaline Phosphatase Total Protein Albumin 04/19/24 04/20/24 04/20/24 20:54 04:42 08:15 WBC 8.2 RBC 2.86 L Hgb 8.6 L Hct 26.1 L MCV 91.3 MCH 30.1 MCHC 33.0 RDW 15.2 H Plt Count 346 MPV 9.9 Sodium 134 L Potassium 3.6 Chloride 104 Carbon Dioxide 25 Anion Gap 5 BUN 13 D Creatinine 0.80 Estim Creat Clear Calc 48 Estimated GFR > 60 Glucose 116 H POC Capillary Glucose 130 H 122 H Calcium 7.7 L Total Bilirubin 0.8 AST 33 ALT 25 Alkaline Phosphatase 156 H Total Protein 6.0 L Albumin 2.7 L Hospitalist MIPS Advance Care Plan I have confirmed that the patient's Advanced Care Plan is present, code status is documented, or surrogate decision maker is listed in patient medical record.: Yes Medication Reconciliation I have utilized all available resources to obtain, update and review the patients current medications (includes all prescriptions, OTC, herbals, cannabis, and nutritional supplements).: Yes
[2024-04-20] MEDS: ENOXAPARIN 40 MG/0.4 ML SYRINGE SUB-Q (09:52)
[2024-04-20] MEDS: PANTOPRAZOLE 40 MG TABLET PO (09:52)
[2024-04-20] MEDS: amLODIPine BESYLATE 10 MG TABLET PO (09:52)
[2024-04-20] MEDS: MEMANTINE 5 MG TABLET PO (09:52)
[2024-04-20] MEDS: oxyCODONE/ACETAMINOPHEN (*CRX) 5-325 MG TABLET 1 TABLET PO (09:52)
[2024-04-20] MEDS: PREGABALIN (*CRX) 75 MG CAPSULE 300 MG PO (10:04)
--- NOTE | 2024-04-20 10:12 | PM.PNGS ---
Progress Note: A&P Assessment and Plan (1) Postoperative ileus: Code(s): K91.89 - Other postprocedural complications and disorders of digestive system; K56.7 - Ileus, unspecified Status: Acute Assessment and Plan: exam benign, taran diet, +bowel fxn, no acute surgical issues, ok to dc home from surgical standpoint Subjective Subjective Date/Time Seen: 04/20/24 10:12 Interval history: feels good, no acute issues, taran diet, no further N/V Review of Systems Review of Systems: All systems reviewed & are unremarkable except as noted in HPI and below Exam GI: Inspection: normal to inspection and non-distended GI Palp: No abdominal tenderness and Yes Soft to palpation Objective Data Vital Signs Vital Signs: Vital Signs - 24 hr 04/19/24 12:00 04/19/24 14:00 04/19/24 16:00 Temperature 36.4 C L Pulse Rate 101 H 84 95 Respiratory Rate 17 Blood Pressure 128/62 Pulse Oximetry 95 Oxygen Delivery Fraction of Inspired Oxygen 04/19/24 21:45 04/19/24 20:03 04/20/24 00:01 Temperature Pulse Rate 95 95 95 Respiratory Rate 17 Blood Pressure Pulse Oximetry 95 Oxygen Delivery Room Air Fraction of Inspired Oxygen 28 04/20/24 04:03 04/20/24 05:01 04/20/24 08:26 Temperature 36.9 C Pulse Rate 93 91 Respiratory Rate 18 Blood Pressure 133/64 Pulse Oximetry 97 Oxygen Delivery Room Air Fraction of Inspired Oxygen 04/20/24 09:53 Temperature Pulse Rate Respiratory Rate Blood Pressure 126/74 Pulse Oximetry Oxygen Delivery Fraction of Inspired Oxygen Intake/Output Intake/Output: Intake & Output 04/17/24 04/18/24 04/19/24 04/20/24 23:59 23:59 23:59 23:59 Intake Total 3092.5 1860 3658.7 1922 Output Total 1 500 Balance 3091.5 1360 3658.7 1922 Meds/Results Medications: Active Medications Generic Name Dose Route Start Last Admin Trade Name Freq PRN Reason Stop Dose Admin Alteplase, Recombinant 2 mg 04/13/24 18:16 04/13/24 19:54 Alteplase 2 Mg Vial (Cathflo) IV PUSH 2 mg ONCE PRN Administration Line Occlusion Amlodipine Besylate 10 mg 04/14/24 09:00 04/20/24 09:52 Amlodipine Besylate 10 Mg Tablet PO 10 mg DAILY SHAKILA Administration Bisacodyl 10 mg 04/11/24 18:00 04/19/24 17:37 Bisacodyl 5 Mg Tablet Ec PO 10 mg QPM SHAKILA Administration Dextrose 12.5 gm 04/05/24 13:22 Dextrose 50% 25 Gm/50 Ml Syringe IV PUSH PRN PRN Hypoglycemia Protocol Diphenhydramine HCl 25 mg 04/05/24 13:05 04/15/24 22:16 Diphenhydramine Hcl Inj 50 Mg/Ml Vial IV PUSH 25 mg Q4H PRN Administration Itching Enoxaparin Sodium 40 mg 04/05/24 09:00 04/20/24 09:52 Enoxaparin 40 Mg/0.4 Ml Syringe SUB-Q 40 mg DAILY SHAKILA Administration Glucagon 1 mg 04/05/24 13:22 Glucagon For Inj 1 Mg Vial IM PRN PRN Hypoglycemia Protocol Glucose 15 gm 04/05/24 13:22 Glucose Oral Gel 15 Gm Of Glucse In 37.5 Gm Tube PO PRN PRN Hypoglycemia Protocol Hydralazine HCl 10 mg 04/17/24 07:53 Hydralazine Hcl 20 Mg/Ml Vial IV PUSH Q8H PRN Blood Pressure - High Hydromorphone HCl 1 mg 04/04/24 21:53 04/16/24 23:50 Hydromorphone Hcl Inj (*Crx) 1 Mg/Ml Syr IV PUSH 1 mg Q2H PRN Administration Breakthrough Pain Rated 7-10 or NPO Hydromorphone HCl 0.5 mg 04/04/24 21:53 04/15/24 08:48 Hydromorphone Hcl Inj (*Crx) 1 Mg/Ml Syr IV PUSH 0.5 mg Q2H PRN Administration Breakthrough Pain Rated 4-6 or NPO Ibuprofen 800 mg in 200 mls @ 400 mls/hr 04/04/24 21:53 04/05/24 11:01 Caldolor 800 Mg/200 Ml IVPB Infused Q6H PRN Infusion Breakthrough Pain Rated 1-3 or NPO Dextrose 1,000 mls @ 100 mls/hr 04/05/24 13:22 Dextrose 5% 1,000 Ml IVPB PRN PRN Hypoglycemia Protocol Dextrose 1,000 mls @ 50 mls/hr 04/05/24 15:13 Dextrose 10% IV CONT .Q20H PRN if PN is interrupted Sodium Chloride 1,000 mls @ 100 mls/hr 04/18/24 16:35 04/20/24 02:44 Normal Saline Iv IV CONT 100 mls/hr .Q10H SHAKILA Administration Insulin Aspart 2 - 5 units 04/18/24 08:00 04/20/24 08:16 Insulin Aspart (*Bkc) 100 Units/Ml SUB-Q Not Given TIDWM [facility] Protocol Insulin Glargine 25 units 04/07/24 21:00 04/19/24 21:46 Insulin Glargine (*Bkc) 100 Units/Ml SUB-Q Not Given HS SHAKILA Memantine 5 mg 04/13/24 17:00 04/20/24 09:52 Memantine 5 Mg Tablet PO 5 mg BID SHAKILA Administration Metoclopramide HCl 10 mg 04/14/24 18:00 04/20/24 05:08 Metoclopramide Hcl Inj 10 Mg/2 Ml Vial IV PUSH 10 mg Q6HR SHAKILA Administration Naloxone HCl 0.1 mg 04/04/24 21:53 Naloxone Hcl 0.4 Mg/Ml Vial IV PUSH Q2M PRN Opiate Reversal Ondansetron HCl 8 mg 04/03/24 10:15 04/19/24 17:44 Ondansetron Inj 4 Mg/2 Ml Vial IV PUSH 8 mg Q6H PRN Administration Nausea And Vomiting Oxycodone/Acetaminophen 1 tablet 04/11/24 10:49 04/20/24 09:52 Oxycodone/Acetaminophen (*Crx) 5-325 Mg Tablet PO 1 tablet Q4H PRN Administration Pain Rated 4-6 Oxycodone/Acetaminophen 2 tablet 04/11/24 10:49 04/17/24 17:06 Oxycodone/Acetaminophen (*Crx) 5-325 Mg Tablet PO 2 tablet Q4H PRN Administration Pain Rated 7-10 Pantoprazole Sodium 40 mg 04/17/24 09:00 04/20/24 09:52 Pantoprazole 40 Mg Tablet PO 40 mg Q12HR SHAKILA Administration Phenol 1 spray 04/03/24 22:07 04/03/24 23:37 Phenol/Sod Pheno [place] Strauss (*Bkc) MUCOUS MEM 1 spray PRN PRN Administration Sore Throat Polyethylene Glycol 17 gm 04/11/24 09:00 04/20/24 10:09 Polyethylene Glycol 3350 17 Gm Powd.Pack PO Not Given QAM SHAKILA Pregabalin 300 mg 04/14/24 09:00 04/20/24 10:04 Pregabalin (*Crx) 75 Mg Capsule PO 300 mg Q12HR SHAKILA Administration Promethazine HCl 25 mg 04/17/24 22:42 Promethazine Hcl 25 Mg Tablet PO Q4H PRN Nausea And Vomiting Sodium Chloride 20 ml 04/05/24 16:15 04/18/24 05:18 Central Line Flush IV PUSH 20 ml PRN PRN Administration after blood draws Sodium Chloride 10 ml 04/05/24 16:15 Central Line Flush IV PUSH PRN PRN with TPN bag changes Sodium Chloride 10 ml 04/05/24 22:00 04/20/24 05:08 Central Line Flush IV PUSH 10 ml Q8HR SHAKILA Administration Radiology Results: ITS Impressions Abdomen/Pelvis CT 04/02/24 05:56 IMPRESSION: 1. Small bowel obstruction with transition point in right abdomen. Small Bowel X-Ray 04/16/24 14:30 IMPRESSION: 1. Dilated small bowel with prompt passage of contrast to the colon, consistent with adynamic ileus. Chest X-Ray 04/18/24 11:17 Impression: 1: Left basilar atelectasis. Venous Doppler Study 04/18/24 19:50 IMPRESSION: 1. No deep venous thrombosis. Abdomen X-Ray 04/19/24 08:43 IMPRESSION: 1. Persistently dilated small bowel, likely adynamic ileus. Labs Labs: Laboratory Results - last 24 hr 04/19/24 04/19/24 04/19/24 12:01 17:25 20:54 WBC RBC Hgb Hct MCV MCH MCHC RDW Plt Count MPV Sodium Potassium Chloride Carbon Dioxide Anion Gap BUN Creatinine Estim Creat Clear Calc Estimated GFR Glucose POC Capillary Glucose 149 H 142 H 130 H Calcium Total Bilirubin AST ALT Alkaline Phosphatase Total Protein Albumin 04/20/24 04/20/24 04:42 08:15 WBC 8.2 RBC 2.86 L Hgb 8.6 L Hct 26.1 L MCV 91.3 MCH 30.1 MCHC 33.0 RDW 15.2 H Plt Count 346 MPV 9.9 Sodium 134 L Potassium 3.6 Chloride 104 Carbon Dioxide 25 Anion Gap 5 BUN 13 D Creatinine 0.80 Estim Creat Clear Calc 48 Estimated GFR > 60 Glucose 116 H POC Capillary Glucose 122 H Calcium 7.7 L Total Bilirubin 0.8 AST 33 ALT 25 Alkaline Phosphatase 156 H Total Protein 6.0 L Albumin 2.7 L
[2024-04-20 12:07] LABS: Glucose Point of Care 123 mg/dl (65-105)
[2024-04-20] MEDS: HYDROmorphone HCL INJ (*CRX) 1 MG/ML SYR IV PUSH (13:12)
--- NOTE | 2024-04-20 14:57 | P.DS_ITS ---
DS: Admitting Diagnosis Discharge Date 04/20/2024 Admitting Diagnosis SBO DS: Discharge Diagnosis Discharge Diagnosis (1) Small bowel obstruction: Code(s): K56.609 - Unspecified intestinal obstruction, unspecified as to partial versus complete obstruction Status: Acute (2) Diabetes mellitus: Code(s): E11.9 - Type 2 diabetes mellitus without complications Status: Acute DS: Summary Hospital Course Hospital Course: Patient is a 73-year-old female PMHX DM, breast cancer in 2018, TU, JOANNE, UTI,GERD ,Bullous Pemphigoid who presents to the emergency department [facility] complaining of diffuse abdominal pain, abdominal distension, nausea and vomiting. Patient admits to history of a small-bowel obstruction in 2009 status post an ex lap. Denies any urinary symptoms including dysuria or hematuria, denies any recent diarrhea. Patient states that she had a small bowel movement before coming into the emergency. Imaging studies obtained included CT abdomen pelvis with IV contrast revealing a small-bowel obstruction with a transition point in the right abdomen. Off Note patient has distant history of 3 small bowel obstruction. First 2 were treated medically. She underwent exploratory laparotomy with a 3rd small bowel obstruction. The obstruction was secondary to adhesions (no colon resection). In regards to abdominal surgeries include open cholecystectomy, appendectomy, ectopic and exploratory laparotomy. Patient admitted on 04/02: A Gastrografin small-bowel follow-through was obtained and complete small bowel obstruction was persisting. Discussions were made with the patient about treatment options and decision was made to proceed with exploratory laparotomy with possible bowel resection. On 04/04 patient went through Exploratory laparotomy,Jejunal resection with [id number] anastomosis, Ileal resection with [id number] anastomosis, Extensive adhesiolysis. After the surgery encouraged patient to work with therapy and try getting up to the chair a few times during the day. Unfortunately patient was not able tolerate food and episodes of vomiting. On 04/14 she was NPO and ordered NG tubeS. On 04/18After NG tube secretions were down,small-bowel follow-through showed contrast reaching the colon within 1 hour. NG tube was removed 04/20 : Patient is feeling better.She reports not having much appetite. She takes yogurt and some coffee. Having episodes of diarrhea but denies nausea or vomiting or abdominal pain. Holding docusate and advised to continue week later after the diarrhea resolves. Advised to follow up with surgery in a week and also PCP for DM management. She doesnt want to be in insulin and going to see her PCP on 04/30/2024 Status at Discharge Cognitive/behavioral status at discharge: Stable Time Spent with Patient Time attestation: Total time spent providing and/or coordinating discharge services:45 minutes Exam Const: General: cooperative, comfortable, no acute distress, uncomfortable (Due to abdominal pain) and average body habitus Nutritional Appearance: average body habitus Orientation/consciousness: patient oriented x3 HENMT: Head: normocephalic and atraumatic Ears: hearing grossly normal kamila aterally Mouth: Yes moist mucous membranes Eyes: General: appearance normal, both eyes and all related structures Pupils: Equal, round and reactive pupils present Neck: Neck: normal visual inspection and full ROM Resp: Effort & Inspection: no respiratory distress Auscultation: clear to auscultation bilaterally Cardio: Rate: regular rate Rhythm: regular rhythm Heart sounds: S1 normal heart sound present and S2 normal heart sound present Peripheral pulses: Peripheral pulses 2+ throughout GI: Inspection: normal to inspection, non-distended, incision, scar (3 vertic al scars from the midline to the right mid abdomen), no visible herniation and other (mildly distended) Auscultation: normal bowel sounds, absent bowel sounds, High-pitched bowel sounds present (few high pitched hypoactive sounds) and Hypoactive bowel sounds present Urinary Catheter: Urinary Catheter: patent and draining and urine clear Skin: General skin exam: normal color Neuro: General: patient oriented x3, moves all extremities and no focal motor deficits Cranial nerves: Yes Equal, round and reactive pupils present Speech: normal speech Motor exam (neuro): 5/5 motor strength present throughout Extrem: General: normal to inspection, no calf tenderness and no edema Psych: Mental Status: mental status grossly normal Attitude: cooperative Insight: Good insight present (Psych) Judgement: Good judgement present (Psych) DS: Data Data Completed and Pending Completed studies during hospitalization: Pending at discharge 04/04/24 19:28 Surgical [PTH] Routine Surgical [PTH] Routine Labs on day of discharge: Labs from last 24 hours 04/20/24 04/20/24 04/20/24 12:00 08:15 04:42 WBC 8.2 RBC 2.86 L Hgb 8.6 L Hct 26.1 L MCV 91.3 MCH 30.1 MCHC 33.0 RDW 15.2 H Plt Count 346 MPV 9.9 Sodium 134 L Potassium 3.6 Chloride 104 Carbon Dioxide 25 Anion Gap 5 BUN 13 D Creatinine 0.80 Estim Creat Clear Calc 48 Estimated GFR > 60 Glucose 116 H POC Capillary Glucose 123 H 122 H Calcium 7.7 L Total Bilirubin 0.8 AST 33 ALT 25 Alkaline Phosphatase 156 H Total Protein 6.0 L Albumin 2.7 L 04/19/24 04/19/24 20:54 17:25 WBC RBC Hgb Hct MCV MCH MCHC RDW Plt Count MPV Sodium Potassium Chloride Carbon Dioxide Anion Gap BUN Creatinine Estim Creat Clear Calc Estimated GFR Glucose POC Capillary Glucose 130 H 142 H Calcium Total Bilirubin AST ALT Alkaline Phosphatase Total Protein Albumin Discharge Plan Discharge Attending physician on discharge: Magdi Garcia Consulting providers: Chetan Friend Discharging Clinician: Magdi Garcia Anticipated Discharge Date/Time: 04/20/24 14:46 Patient Disposition: Home Health Service Activity: as tolerated Diet: as tolerated Discharge Instructions: Care Coordination: Patient to have [facility] for PT/OT eval and treat, and senior living. Their phone number is [phone] if you have any questions. They will contact you to schedule their first visit. Patient should follow up with PCP and discuss about continuing bowel regimen and diabetic follow up. Patient Instructions: Antibiotic Form Stand Alone Forms: General Discharge Information Follow-up/Referrals: Pierre,DO Akhil [Primary Care Provider] - 1 Week (Patient should follow up with PCP and discuss about continuing bowel regimen and for diabetic follow up.) Chetan Friend DO [Physician] - 4 Weeks Discharge Medications: New pantoprazole 40 mg Tablet,Delayed Release (Dr/Ec) 40 mg PO Q12HR Qty: 30 0RF promethazine 25 mg Tablet 25 mg PO Q4H PRN (Reason: Nausea And Vomiting) Qty: 10 0RF Continued erythromycin 2 % solution 1 ml topical TID Rx Instructions: To left eye ondansetron HCl 4 mg tablet 4 mg PO Q4H PRN (Reason: Nausea) pregabalin [Lyrica] 150 mg capsule 300 mg PO Q12H levothyroxine 100 mcg Tablet 100 mcg PO DAILY oxycodone-acetaminophen 5-325 mg Tablet 1 tablet PO Q6H PRN (Reason: Pain, Moderate) triamcinolone acetonide 0.1 % ointment 1 applic TOPICAL BID PRN (Reason: if open areas) Rx Instructions: to open areas memantine 5 mg tablet 5 mg PO BID amlodipine 10 mg tablet 10 mg PO DAILY rosuvastatin 40 mg tablet 40 mg PO DAILY fenofibrate 160 mg tablet 160 mg PO DAILY multivitamin [Daily Multivitamin] Tablet 1 tablet PO DAILY silver sulfadiazine 1 % Cream 1 applic TOPICAL BID PRN (Reason: blisters) Rx Instructions: apply a 1.5 mm thickness to blisters glipizide 10 mg tablet extended release 24hr 10 mg PO DAILY polyvinyl alcohol-povidone 1.4-0.6 % Drops 1 drp OPHTHALMIC (EYE) QID PRN (Reason: Dry Eyes) ergocalciferol (vitamin D2) 50,000 unit Tablet 50,000 unit PO WEEKLY Rx Instructions: takes on Fridays diphenhydramine HCl [Allergy (diphenhydramine)] 25 mg Capsule 25 mg PO Q6H PRN (Reason: Itching) hydrocortisone 2.5 % Cream 1 applic TOPICAL BID Rx Instructions: left ear Held naproxen 375 mg tablet 375 mg PO Q72H PRN (Reason: Pain, Mild) Hold Instructions: Resume on 05/04/24. Restart at the discretion of PCP. docusate sodium [Colace] 100 mg Capsule 100 mg PO BID Hold Instructions: Resume on 04/26/24. Restart at the discretion of PCP. Date of admission: 04/02/24 06:22 Primary Care Provider: Pierre,Akhil Admitting Provider: Fatoumata Rowell V. Attending physician on admission: Fatoumata Rowell V. Condition: Stable
== END 2024-04-20 16:55 | disposition home health service (06) | DRG 330 ==
LOC: ANHED 06:10 → ANH2MED 08:36
PROVIDERS: Hospitalist; Internal Medicine; Nurse Practitioner Family; Surgery; Admitting Provider Internal Medicine; Emergency Provider Emergency Medicine; PCP Student in an Organized Health Care Education/Training Program; Visit Provider General Practice
PROC: 0DBA0ZZ Excision of Jejunum, Open Approach (ICD-10-PCS; CPT 49000; principal; 2024-04-04 16:00)
DX: K56.52 Intestinal adhesions [bands] with complete obstruction (principal); D62 Acute posthemorrhagic anemia; I48.20 Chronic atrial fibrillation, unspecified; K91.71 Accidental puncture and laceration of a digestive system organ or structure during a digestive system procedure; N39.0 Urinary tract infection, site not specified; L12.0 Bullous pemphigoid; N17.9 Acute kidney failure, unspecified; E46 Unspecified protein-calorie malnutrition; K91.89 Other postprocedural complications and disorders of digestive system; K56.7 Ileus, unspecified; G89.18 Other acute postprocedural pain; E87.6 Hypokalemia; D69.6 Thrombocytopenia, unspecified; G50.0 Trigeminal neuralgia; I10 Essential (primary) hypertension; D47.2 Monoclonal gammopathy; D50.9 Iron deficiency anemia, unspecified; E11.9 Type 2 diabetes mellitus without complications; E03.9 Hypothyroidism, unspecified; E78.5 Hyperlipidemia, unspecified; Z68.25 Body mass index [BMI] 25.0-25.9, adult; Z91.199 Patient's noncompliance with other medical treatment and regimen due to unspecified reason; Z85.3 Personal history of malignant neoplasm of breast; Z87.891 Personal history of nicotine dependence
CPT/HCPCS: 36415; 36430; 36569; 71045; 74018; 74019; 74177; 74250; 80048; 80053; 81001; 82248; 82330; 82948; 83036; 83540; 83550; 83605; 83690; 83735; 84100; 84132; 84466; 84478; 85025; 85027; 85055; 85610; 85730; 86850; 86900; 86901; 86923; 87086; 87186; 88307; 93005; 93970; 97110; 97161; 97166; 97530; 97535; 99285; A9270; J0330; J0360; J0612; J0690; J1100; J1171; J1200; J1580; J1650; J1741; J1756; J1815; J1836; J1956; J2003; J2212; J2270; J2405; J2550; J2704; J2765; J2997; J3010; J3475; J3480; J7030; J7040; J7050; J7120; P9016; P9047; Q9967

== ENCOUNTER 2024-04-22 20:24 | Observation (INO) | payer MEDICARE, SELFPAY ==
--- NOTE | ~2024-04-22 | CT_ITS ---
CT of the Abdomen and Pelvis: Indication: Abdominal pain, recent bowel obstruction, status post exploratory laparoscopy Technique: 2.5 mm axial scans were obtained through the abdomen and pelvis following intravenous adm inistration of 100 cc of Omnipaque 350. Dose reduction technique was used on this scan by utilizing a utomated exposure control and iterative reconstruction technique. The dose-length product (DLP) was 3 48.29 mGy-cm. COMPARISON: 04/02/2024 Findings: Scans through the lung bases are unremarkable. The liver, spleen, pancreas, adrenals and left kidney are within normal limits. Stable right renal cy st. Status post cholecystectomy. There are extensive atherosclerotic calcifications of the aorta and iliac vessels. No lymphadenopathy. There is evidence of interval small bowel resection, with anastomotic suture line present. Proximal s mall bowel loops are again distended, none of residual obstruction may be present, transition point n ear the anastomosis (axial images 125 for example). There is extensive haziness and infiltrate change in the central mesentery, which could reflect infectious/inflammatory process or postoperative ruelas e. No definite abscess evident. No free air evident. There is trace ascites. Mild wall thickening of the transverse colon is probably reactive due to the adjacent inflammation. Images through the pelvis were performed. Possible mild diffuse urinary bladder wall thickening versu s underdistention. No adnexal mass evident. Impression: Status post interval small bowel resection. There is extensive inflammatory change or postoperative c hange throughout the central mesentery, with mild wall thickening of multiple small bowel loops and t ransverse colon. Correlate for infectious/inflammatory processes versus possibly postoperative change . No definite abscess/extraluminal fluid collection. Persistent dilatation of upstream small bowel loops, with relative transition point at the anastomosi s. Persistent or redeveloping small bowel obstruction should be considered. Possible cystitis versus underdistention. Correlate with urinalysis. Reviewed, dictated and finalized at location [employer] Impression: Status post interval small bowel resection. There is extensive inflammatory arpita nge or postoperative change throughout the central mesentery, with mild wall th ickening of multiple small bowel loops and transverse colon. Correlate for infe ctious/inflammatory processes versus possibly postoperative change. No definite abscess/extraluminal fluid collection. Persistent dilatation of upstream small bowel loops, with relative transition p oint at the anastomosis. Persistent or redeveloping small bowel obstruction anderson uld be considered. Possible cystitis versus underdistention. Correlate with urinalysis.
[2024-04-22 20:31] VITALS: BP 133/69; PULSE 108; RESP 15; TEMP 36.6; O2SAT 98
[2024-04-22 22:22] LABS: Basophils Absolute Auto 0.1 K/mm3 (0.0-0.1); Basophils Percent Auto 0.7 % (0.2-1.2); Eosinophils Absolute Auto 0.1 K/mm3 (0-0.3); Eosinophils Percent Auto 0.9 % (0-4.4); Hematocrit 36.4 % (37.0-47.0); Hemoglobin 11.8 g/dL (12.0-15.0); Immature Granulocyte Percent A 1.4 % (0-0.5); Lymphocytes Absolute Auto 1.93 K/mm3 (0.9-3.2); Lymphocytes Percent Auto 13.5 % (18.3-44.2); Mean Corpuscular HGB Conc 32.4 g/dl (32-36); Mean Corpuscular Hemoglobin 29.7 pg (26-34); Mean Corpuscular Volume 91.7 fl (80-100); Mean Platelet Volume 10.3 fl (7.4-10.4); Monocytes Absolute Auto 1.1 K/mm3 (0.1-0.6); Monocytes Percent Auto 7.9 % (2.6-8.5); Neutrophils Absolute Auto 10.8 K/mm3 (1.3-6.7); Neutrophils Percent Auto 75.6 % (45.5-73.1); Platelet Count Result 506 k/mm3 (150-375); Red Blood Count 3.97 M/mm3 (4.2-5.4); Red Cell Distribution Width 15.6 % (11.5-14.5); White Blood Count 14.3 K/mm3 (4.5-10.0)
[2024-04-22 22:31] LABS: Alanine Aminotransferase 21 U/L (6-35); Albumin Level 3.6 g/dL (3.5-5.1); Alkaline Phosphatase 187 U/L (38-126); Anion Gap 14 mmol/L (4-12); Aspartate Amino Transferase 27 U/L (14-36); Bilirubin,Total 0.8 mg/dL (0.2-1.3); Blood Urea Nitrogen 14 mg/dL (7-17); Calcium 8.4 mg/dL (8.4-10.2); Carbon Dioxide 18 mmol/L (22-30); Chloride 102 mmol/L (98-107); Estimated CRCL calculation 34 ml/min; Estimated Glomerular Filt Rate 44; Glucose 179 mg/dL (65-110); Lipase 157 U/L (23-300); Potassium 3.3 mmol/L (3.4-5.0); Sodium 134 mmol/L (137-145)
[2024-04-22 22:55] VITALS: PULSE 88; RESP 16; TEMP 36.6; O2SAT 97
--- NOTE | 2024-04-22 23:18 | ED.NAVMDI ---
HPI - Nausea/Vomiting/Diarrhea General Chief complaint: Nausea/Vomiting/Diarrhea Stated complaint: n/v/d Time Seen by Provider: 04/22/24 22:33 Source: patient and family ( daughter) Limitations: other (Somnolent but protecting airway) History of Present Illness HPI Narrative: Patient presents with report of nausea, vomiting, and diarrhea since last night. Patient recently admitted and underwent surgical intervention including exploratory laparotomy with resection and and end-to-end anastomosis for a bowel obstruction with Dr. Friend. She notes she was discharged but when she called surgeons/surgeon's clinic given her symptoms she was told to go to the emergency department. Patient states the nausea is improved and her emesis was this morning. She had a few episodes of diarrhea during the day which was watery. She has had decreased p.o. intake and her last oral intake was scant, only a Bellvita cookie this morning. She tried taking Imodium at 7:00 p.m.. She was having abdominal pain earlier but denies this now. No falls. No bloody bowel movements have been appreciated although family notes that her buttocks is raw. No bloody emesis. Related Data Home Medications Medication Instructions Recorded Confirmed amlodipine 10 mg tablet 10 mg PO DAILY 02/05/21 04/23/24 fenofibrate 160 mg tablet 160 mg PO DAILY 02/05/21 04/23/24 rosuvastatin 40 mg tablet 40 mg PO DAILY 02/05/21 04/23/24 erythromycin 2 % topical solution 1 ml topical TID Itching 05/01/22 04/23/24 ondansetron HCl 4 mg tablet 4 mg PO Q4H PRN Nausea 05/01/22 04/23/24 pregabalin 150 mg capsule (Lyrica) 300 mg PO Q12H 05/01/22 04/23/24 levothyroxine 100 mcg tablet 100 mcg PO DAILY 05/17/22 04/23/24 oxycodone-acetaminophen 5 mg-325 1 tablet PO Q6H PRN Pain, Moderate 05/17/22 04/23/24 mg tablet memantine 5 mg tablet 5 mg PO BID 09/06/23 04/23/24 naproxen 375 mg tablet 375 mg PO Q72H PRN Pain, Mild 09/06/23 04/23/24 triamcinolone acetonide 0.1 % 1 applic topical BID PRN if open 09/06/23 04/23/24 topical ointment areas diphenhydramine HCl 25 mg capsule 25 mg PO Q6H PRN Itching 04/02/24 04/23/24 (Allergy (diphenhydramine)) docusate sodium 100 mg capsule 100 mg PO BID 04/02/24 04/23/24 (Colace) ergocalciferol (vitamin D2) 50,000 50,000 unit PO WEEKLY 04/02/24 04/23/24 unit tablet glipizide 10 mg tablet, extended 10 mg PO DAILY 04/02/24 04/23/24 release 24 hr hydrocortisone 2.5 % topical cream 1 applic topical BID 04/02/24 04/23/24 multivitamin 1 tablet PO DAILY 04/02/24 04/23/24 polyvinyl alcohol-povidone 1.4 1 drp ophthalmic (eye) QID PRN Dry 04/02/24 04/23/24 %-0.6 % eye drops Eyes silver sulfadiazine 1 % topical 1 applic topical BID PRN blisters 04/02/24 04/23/24 cream Allergies Allergy/AdvReac Type Severity Reaction Status Date / Time gemfibrozil Allergy Intermediate Rash Verified 04/23/24 06:18 hydrochlorothiazide Allergy Intermediate Rash Verified 04/23/24 06:18 irbesartan Allergy Intermediate Hives Verified 04/23/24 06:18 niacinamide Allergy Intermediate Rash Verified 04/23/24 06:18 amoxicillin [From Augmentin] AdvReac Intermediate Diarrhea Verified 04/23/24 06:18 clavulanic acid AdvReac Intermediate Diarrhea Verified 04/23/24 06:18 [From Augmentin] hydrocodone AdvReac Intermediate Dizziness Verified 04/23/24 06:18 lisinopril AdvReac Intermediate Dizziness Verified 04/23/24 06:18 [facility] Past Medical History Medical History Atrial fibrillation Breast cancer Bullous pemphigoid Diabetes mellitus Essential hypertension Hyperlipidemia Hypothyroidism Hypothyroidism Iron deficiency anemia MGUS (monoclonal gammopathy of unknown significance) Shingles Small bowel obstruction Multiple small-bowel obstructions over the course of 20+ years. Surgical History Surgical History History of appendectomy History of exploratory laparotomy (~2009) Due to small-bowel obstruction History of lumpectomy of right breast History of tubal ligation Hx of cholecystectomy Family History Family History Mother , in her 90s Dementia Father , at age 72 Coronary artery disease Hx of CABG Social History Social History Social History: She lives in [place] with her of 44 years. They have 2 children. She is a former smoker but ?did not smoke that much?. She she does not drink alcohol. 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 Healthcare power of civil litigation attorney: Years smoked: 47 Smoking status: Former smoker Second hand tobacco smoke exposure: Yes Alcohol intake: never Alcohol use details: occasional glass of wine Substance use: current Substance use type: marijuana Last use: t-2 Do You Feel Safe in your Home?: Yes Lack of Transportation: No Lack of Food: Never True Current Housing: I Have Housing Concerned About Future Housing: No Difficulty Paying Gas/Electric Bills: No Difficulty Paying for Meds: No Currently Unemployed: No Education: High School Diploma/GED Difficulty w/ Childcare or Family Care: No Living arrangements: with family Gender identity (if verbalized by the patient): Female Spiritual care concerns: No Exam Narrative: GENERAL: in no acute distress but chronically ill-appearing. HEAD: Normocephalic, atraumatic. EYES: Non injected, non icteric. 3 mm pupil on the left and 2 mm pupil on the right ENT: Nares clear, no rhinorrhea or epistaxis. Moist mucous membranes. NECK: Supple. CHEST: Speaking in full sentences. No respiratory distress. HEART: Regular rate and rhythm. . ABDOMEN: Soft, nondistended. Well-healing midline surgical scar with small area of ulceration but otherwise without purulent discharge, overlying skin changes suggestive of cellulitis, no induration, no dehiscence. Tender to palpation throughout though, particularly in lower quadrants. EXTREMITIES: Normal range of motion. SKIN: Warm, dry, no rash. NEURO: No focal deficits. Alert and oriented. Somnolent but protecting airway PSYCH: Congruent mood and affect. Course Vital Signs Vital signs: Vital Signs Temperature 98 F 04/22/24 20:31 Pulse Rate 108 H 04/22/24 20:31 Respiratory Rate 15 04/22/24 20:31 Blood Pressure 133/69 04/22/24 20:31 Pulse Oximetry 98 04/22/24 20:31 Oxygen Delivery Room Air 04/22/24 20:31 Temperature 97.2 F L 04/23/24 14:00 Pulse Rate 80 04/23/24 14:00 Respiratory Rate 18 04/23/24 14:00 Blood Pressure 147/69 H 04/23/24 14:00 Pulse Oximetry 99 04/23/24 14:00 Oxygen Delivery Room Air 04/23/24 10:51 MDM - Nausea/Vomiting/Diarrhea MDM Narrative Medical decision making narrative: Patient presents with nausea, vomiting, and diarrhea. Recently underwent ex lap with resection and end-to-end anastomosis for bowel obstruction. In the emergency department she is afebrile with vital signs that show initially tachycardia although normal on reassessment. Hypokalemia and JOANNE. Potassium repletion and IV fluids ordered. Urinalysis concerning for infection. Prior urine cultures reviewed which showed a urinary tract infection that was resistant to ceftriaxone and ciprofloxacin. It was sensitive to pip/tazo; will give although patient's allergy to amoxicillin is diarrhea. Patient has leukocytosis, normocytic anemia, and thrombocytosis. Each of these has previously been seen recently, no acute changes. There is a considerable delay in obtaining patient's CT scan being interpreted by radiology. Findings as below. Discussed with Dr Friend who will be consulted while admitted inpatient. Discussed with consultant teacher hospitalist Dr Jacome. Differential Diagnosis Differential diagnosis: Likely gastroenteritis, clostridium difficile infection, drug-induced nausea and vomiting, dehydration and other (Postsurgical complication, recurrent small-bowel obstruction/partial small-bowel obstruction) Medical Records Attestation: I reviewed the patient's medical records. Lab Data Attestation: I reviewed the patient's lab results. 04/22/24 22:16 04/23/24 13:59 Labs: Lab Results 04/22/24 04/22/24 04/22/24 Range/Units 22:16 22:48 23:51 WBC 14.3 H (4.5-10.0) K/mm3 RBC 3.97 L (4.2-5.4) M/mm3 Hgb 11.8 L D (12.0-15.0) g/dL Hct 36.4 L (37.0-47.0) % MCV 91.7 (80-100) fl MCH 29.7 (26-34) pg MCHC 32.4 (32-36) g/dl RDW 15.6 H (11.5-14.5) % Plt Count 506 H (150-375) k/mm3 MPV 10.3 (7.4-10.4) fl Immature Gran % (Auto) 1.4 H (0-0.5) % Neut % (Auto) 75.6 H (45.5-73.1) % Lymph % (Auto) 13.5 L (18.3-44.2) % [place] % (Auto) 7.9 (2.6-8.5) % Eos % (Auto) 0.9 (0-4.4) % Baso % (Auto) 0.7 (0.2-1.2) % Lymph # (Auto) 1.93 (0.9-3.2) K/mm3 [place] # (Auto) 1.1 H (0.1-0.6) K/mm3 Eos # (Auto) 0.1 (0-0.3) K/mm3 Baso # (Auto) 0.1 (0.0-0.1) K/mm3 Abs Immat Gran (auto) 0.20 H (0.00-0.031) K/mm3 Absolute Neuts (auto) 10.8 H (1.3-6.7) K/mm3 Absolute Nucleated RBC 0.000 (0.0-0.012) K/mm3 Nucleated RBC % 0.0 (0.0-0.2) % Sodium 134 L (137-145) mmol/L Potassium 3.3 L (3.4-5.0) mmol/L Chloride 102 (98-107) mmol/L Carbon Dioxide 18 L (22-30) mmol/L Anion Gap 14 H (4-12) mmol/L BUN 14 (7-17) mg/dL Creatinine 1.20 H (0.7-1.0) mg/dL Estim Creat Clear Calc 34 ml/min Estimated GFR 44 L (59 - ) Glucose 179 H (65-110) mg/dL Lactic Acid 0.9 (0.7-2.0) mmol/L Calcium 8.4 (8.4-10.2) mg/dL Magnesium 1.6 (1.6-2.3) mg/dL Total Bilirubin 0.8 (0.2-1.3) mg/dL AST 27 (14-36) U/L ALT 21 (6-35) U/L Alkaline Phosphatase 187 H (38-126) U/L Total Protein 7.0 (6.3-8.2) g/dL Albumin 3.6 (3.5-5.1) g/dL Lipase 157 (23-300) U/L Urine Color Yellow (Yellow) Urine Appearance Cloudy H (Clear) Urine pH 5.5 (5.0-9.0) Ur Specific [place] 1.012 (1.001-1.035) Urine Protein 1+ H (Negative) mg/dL Urine Glucose (UA) Negative (Negative) mg/dL Urine Ketones Trace H (Negative) mg/dL Ur Blood (Man) 1+ H (Negative) Urine Nitrate Negative (Negative) Urine Bilirubin Negative (Negative) Urine Urobilinogen 1.0 (<2.0) mg/dL Add Ur Microanalysis Reviewed Leukocyte Esterase Rfl Trace H (Negative) FREDY/UL Urine RBC 6-10 H (0-2) /hpf Urine WBC 21-50 H (0-3) /hpf Ur Squamous Epith Cells Moderate (Few) /hpf Urine Bacteria 4+ /hpf Urine Casts 3-5 Hyaline Casts Present (None) /lpf Urine Yeast (Budding) Present H (None) /hpf C. difficile (PCR) Influenza A (RT-PCR) (Negative) Influenza B (RT-PCR) (Negative) SARS-CoV-2 RNA (RT-PCR) (Negative) 04/22/24 Range/Units 23:56 WBC (4.5-10.0) K/mm3 RBC (4.2-5.4) M/mm3 Hgb (12.0-15.0) g/dL Hct (37.0-47.0) % MCV (80-100) fl MCH (26-34) pg MCHC (32-36) g/dl RDW (11.5-14.5) % Plt Count (150-375) k/mm3 MPV (7.4-10.4) fl Immature Gran % (Auto) (0-0.5) % Neut % (Auto) (45.5-73.1) % Lymph % (Auto) (18.3-44.2) % [place] % (Auto) (2.6-8.5) % Eos % (Auto) (0-4.4) % Baso % (Auto) (0.2-1.2) % Lymph # (Auto) (0.9-3.2) K/mm3 [place] # (Auto) (0.1-0.6) K/mm3 Eos # (Auto) (0-0.3) K/mm3 Baso # (Auto) (0.0-0.1) K/mm3 Abs Immat Gran (auto) (0.00-0.031) K/mm3 Absolute Neuts (auto) (1.3-6.7) K/mm3 Absolute Nucleated RBC (0.0-0.012) K/mm3 Nucleated RBC % (0.0-0.2) % Sodium (137-145) mmol/L Potassium (3.4-5.0) mmol/L Chloride (98-107) mmol/L Carbon Dioxide (22-30) mmol/L Anion Gap (4-12) mmol/L BUN (7-17) mg/dL Creatinine (0.7-1.0) mg/dL Estim Creat Clear Calc ml/min Estimated GFR (59 - ) Glucose (65-110) mg/dL Lactic Acid (0.7-2.0) mmol/L Calcium (8.4-10.2) mg/dL Magnesium (1.6-2.3) mg/dL Total Bilirubin (0.2-1.3) mg/dL AST (14-36) U/L ALT (6-35) U/L Alkaline Phosphatase (38-126) U/L Total Protein (6.3-8.2) g/dL Albumin (3.5-5.1) g/dL Lipase (23-300) U/L Urine Color (Yellow) Urine Appearance (Clear) Urine pH (5.0-9.0) Ur Specific [place] (1.001-1.035) Urine Protein (Negative) mg/dL Urine Glucose (UA) (Negative) mg/dL Urine Ketones (Negative) mg/dL Ur Blood (Man) (Negative) Urine Nitrate (Negative) Urine Bilirubin (Negative) Urine Urobilinogen (<2.0) mg/dL Add Ur Microanalysis Leukocyte Esterase Rfl (Negative) FREDY/UL Urine RBC (0-2) /hpf Urine WBC (0-3) /hpf Ur Squamous Epith Cells (Few) /hpf Urine Bacteria /hpf Urine Casts Hyaline Casts (None) /lpf Urine Yeast (Budding) (None) /hpf C. difficile (PCR) Cancelled Influenza A (RT-PCR) Negative (Negative) Influenza B (RT-PCR) Negative (Negative) SARS-CoV-2 RNA (RT-PCR) Negative (Negative) Imaging Data Radiologist's impression: CT Abd/Pelvis STAT RAD: From prior study dated April 02, 2024 there has been interval small bowel resection within the central abdomen with dilatation of upstream small bowel loops measuring up to 3.8 cm extending to the proximal anastomosis. Additional distal anastomosis noted. Findings may relate to developing small-bowel obstruction. Mild mesenteric ascites with prominent mesenteric edema which may be reactive in nature. Please note that underlying infection is not excluded. Gas and fluid containing collection at the midline abdomen measuring 1.4 x 1.8 x 5.6 cm which may be postsurgical in nature. This may be sterile or infectious. Diffuse bladder wall thickening with adjacent stranding. Findings can be seen with cystitis. Consider correlation with laboratory values. No other acute findings. Discharge Plan Discharge Clinical Impression: Hypokalemia, JOANNE (acute kidney injury), UTI (urinary tract infection), Leukocytosis, Normocytic anemia, Thrombocytosis, Gastroenteritis Patient Disposition: Still a Patient Condition: Stable
[2024-04-22 23:26] LABS: Add Urine Microscopic? YES; Appearance Urine Cloudy (Clear); Bacteria Urine 4+ /hpf; Bilirubin Urine Negative (Negative); Blood Urine 1+ (Negative); Budding Yeast Urine Present /hpf; Color Urine Yellow (Yellow); Glucose Urine UA Negative (Negative); Hyaline Casts Urine Present /lpf; Ketones Urine Trace mg/dL (Negative); Leukocyte Esterase Ur Trace LEU/UL (Negative); Need Manual Microscopic Reviewed; Nitrate Urine Negative (Negative); Protein Urine 1+ mg/dL (Negative); Specific Grav Ur 1.012 (1.001-1.035); Squamous Epithelial Cell Urine Moderate /hpf (Few); WBC Urine 21-50 /hpf (0-3); pH Urine 5.5 (5.0-9.0)
[2024-04-22 23:38] LABS: Magnesium 1.6 mg/dL (1.6-2.3)
[2024-04-22 23:44] VITALS: BP 110/62; PULSE 97; RESP 16; TEMP 36.1; O2SAT 97
[2024-04-23] VITALS (10 sets, daily range): BP systolic 113–162; BP diastolic 58–82; PULSE 80–89; RESP 16–20; TEMP 36.2–36.7; O2SAT 95–100; BMI 22.6
[2024-04-23 00:11] LABS: Lactic Acid Reflex 0.9 mmol/L (0.7-2.0)
[2024-04-23 00:38] LABS: Influenza A QL RT-PCR Negative (Negative); Influenza B QL RT-PCR Negative (Negative); SARS-CoV-2 RNA PCR Negative (Negative)
[2024-04-23] MEDS: PIPERACILLIN/TAZ 4.5G/NS 100ML 4.5 GM/100 ML BAG IVPB (00:41)
[2024-04-23] MEDS: SODIUM CHLORIDE 0.9% IV 1,000 ML 999 ML IV CONT (04:51)
[2024-04-23] MEDS: POTASSIUM BICARBONATE 25 MEQ TABEF 50 MEQ PO (05:57)
[2024-04-23] MEDS: LACTATED RINGERS 1,000 ML 125 ML IV CONT ×2 (06:47→20:45)
[2024-04-23] MEDS: MEROPENEM 1 GM/NS 100 ML 1 GM/100 ML BAG IVPB ×2 (06:53→18:02)
--- NOTE | 2024-04-23 06:54 | ADMGEN ---
This patient, Jsoephine Kong, was admitted to Medical Room 246-01. Patient/family oriented to hospital policies and general routines including ID bracelet, bed and alarms, visiting hours, pain management, procedures, bathroom and other care routines, personal items, smoking policy, room service/diet, and visiting hours. Information on how to activate the Rapid Response Team has been discussed. Patient/Family are encouraged to report perceived risks to care and to ask questions if they do not understand what they are told or what they should do.
--- NOTE | 2024-04-23 07:54 | P.HP_ITS ---
H&P: HPI History of Present Illness Date/Time: 04/23/24 07:54 Chief Complaint: Nausea vomiting Narrative: 73 years old lady with history of diabetes, hypertension, hypothyroidism, presented ED with chief complaint of nausea vomiting. Patient started have abdomen pain but 2 days ago, associated with nausea vomiting. Patient denies diarrhea. Patient also denies fever, chills. Patient has no chest pain shor tness for breath. Patient cannot tolerate diet because of abdomen pain, nausea vomiting therefore patient came to ED for evaluation and treatment. Upon arrival in the ED patient was afebrile, blood pressure stable, patient has tachycardia 100 per minutes, tachypnea 20 per minutes, lab showed leukocytosis of 14,300, hemoglobin 11.8, close to baseline, hyponatremia 134, hypokalemia 3.3, high anion gap metabolic acidosis bicarbonate 18, anion gap 14, elevated creatinine 1.20, baseline creatinine 0.8 April 20, 2024 CT showed status post interval small-bowel resection, extensive inflammatory change or postoperative change throughout the central mesentery, with mild wall thickening of multiple small bowel loops and transverse colon. Correlate for infectious/inflammatory processes versus possibly postoperative change, persistent or redeveloping small bowel obstruction. Review of Systems Review of Systems: ROS negative except above PMFSH Past Medical History Medical History Atrial fibrillation Breast cancer Bullous pemphigoid Diabetes mellitus Essential hypertension Hyperlipidemia Hypothyroidism Hypothyroidism Iron deficiency anemia MGUS (monoclonal gammopathy of unknown significance) Shingles Small bowel obstruction Multiple small-bowel obstructions over the course of 20+ years. Surgical History Surgical History History of appendectomy History of exploratory laparotomy (~2009) Due to small-bowel obstruction History of lumpectomy of right breast History of tubal ligation Hx of cholecystectomy Family History Family History Mother , in her 90s Dementia Father , at age 72 Coronary artery disease Hx of CABG Social History Social History Social History: She lives in [place] with her of 44 years. They have 2 children. She is a former smoker but ?did not smoke that much?. She she does not drink alcohol. 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: Years smoked: 47 Smoking status: Former smoker Second hand tobacco smoke exposure: Yes Alcohol intake: never Alcohol use details: occasional glass of wine Substance use: current Substance use type: marijuana Last use: t-2 Do You Feel Safe in your Home?: Yes Lack of Transportation: No Lack of Food: Never True Current Housing: I Have Housing Concerned About Future Housing: No Difficulty Paying Gas/Electric Bills: No Difficulty Paying for Meds: No Currently Unemployed: No Education: High School Diploma/GED Difficulty w/ Childcare or Family Care: No Living arrangements: with family Gender identity (if verbalized by the patient): Female Spiritual care concerns: No Meds Home Medications and Allergies Home Medications Medication Instructions Recorded Confirmed Type amlodipine 10 mg tablet 10 mg PO DAILY 02/05/21 04/23/24 History fenofibrate 160 mg tablet 160 mg PO DAILY 02/05/21 04/23/24 History rosuvastatin 40 mg tablet 40 mg PO DAILY 02/05/21 04/23/24 History erythromycin 2 % topical solution 1 ml topical TID Itching 05/01/22 04/23/24 History ondansetron HCl 4 mg tablet 4 mg PO Q4H PRN Nausea 05/01/22 04/23/24 History pregabalin 150 mg capsule (Lyrica) 300 mg PO Q12H 05/01/22 04/23/24 History levothyroxine 100 mcg tablet 100 mcg PO DAILY 05/17/22 04/23/24 History oxycodone-acetaminophen 5 mg-325 1 tablet PO Q6H PRN Pain, Moderate 05/17/22 04/23/24 History mg tablet memantine 5 mg tablet 5 mg PO BID 09/06/23 04/23/24 History naproxen 375 mg tablet 375 mg PO Q72H PRN Pain, Mild 09/06/23 04/23/24 History triamcinolone acetonide 0.1 % 1 applic topical BID PRN if open 09/06/23 04/23/24 History topical ointment areas diphenhydramine HCl 25 mg capsule 25 mg PO Q6H PRN Itching 04/02/24 04/23/24 History (Allergy (diphenhydramine)) docusate sodium 100 mg capsule 100 mg PO BID 04/02/24 04/23/24 History (Colace) ergocalciferol (vitamin D2) 50,000 50,000 unit PO WEEKLY 04/02/24 04/23/24 History unit tablet glipizide 10 mg tablet, extended 10 mg PO DAILY 04/02/24 04/23/24 History release 24 hr hydrocortisone 2.5 % topical cream 1 applic topical BID 04/02/24 04/23/24 History multivitamin 1 tablet PO DAILY 04/02/24 04/23/24 History polyvinyl alcohol-povidone 1.4 1 drp ophthalmic (eye) QID PRN Dry 04/02/24 04/23/24 History %-0.6 % eye drops Eyes silver sulfadiazine 1 % topical 1 applic topical BID PRN blisters 04/02/24 04/23/24 History cream pantoprazole 40 mg tablet,delayed 40 mg PO Q12HR #30 tabs 04/20/24 04/23/24 Rx release promethazine 25 mg tablet 25 mg PO Q4H PRN Nausea And 04/20/24 04/23/24 Rx Vomiting #10 tabs Allergies Allergy/AdvReac Type Severity Reaction Status Date / Time gemfibrozil Allergy Intermediate Rash Verified 04/23/24 06:18 hydrochlorothiazide Allergy Intermediate Rash Verified 04/23/24 06:18 irbesartan Allergy Intermediate Hives Verified 04/23/24 06:18 niacinamide Allergy Intermediate Rash Verified 04/23/24 06:18 amoxicillin [From Augmentin] AdvReac Intermediate Diarrhea Verified 04/23/24 06:18 clavulanic acid AdvReac Intermediate Diarrhea Verified 04/23/24 06:18 [From Augmentin] hydrocodone AdvReac Intermediate Dizziness Verified 04/23/24 06:18 lisinopril AdvReac Intermediate Dizziness Verified 04/23/24 06:18 Vital Signs Vital Signs - 24 hr 04/22/24 20:31 04/22/24 22:55 04/22/24 23:44 Temperature 98 F 98 F 97 F L Pulse Rate 108 H 88 97 Respiratory Rate 15 16 16 Blood Pressure 133/69 110/62 Pulse Oximetry 98 97 97 Oxygen Delivery Room Air 04/23/24 01:27 04/23/24 03:52 04/23/24 06:18 Temperature 98.1 F 97.5 F L 98.1 F Pulse Rate 85 87 89 Respiratory Rate 16 16 16 Blood Pressure 113/58 L 125/69 138/73 Pulse Oximetry 96 95 99 Oxygen Delivery 04/23/24 06:52 04/23/24 06:55 04/23/24 06:25 Temperature 98.0 F 98.1 F Pulse Rate 83 83 89 Respiratory Rate 20 20 Blood Pressure 135/66 138/73 Pulse Oximetry 100 100 99 Oxygen Delivery Room Air Exam Narrative: GENERAL: Pleasant, in no acute distress. Well-nourished. - EYES: EOMI. Anicteric. - HENT: Moist mucous membranes. - LUNGS: Clear to auscultation bilateral ly, no wheezing, rhonchi, or rales. - CARDIOVASCULAR: Regular rate and rhyth m. No murmur. No JVD. - ABDOMEN: Soft, diffused abdominal tend er not distended. No palpable masses. Surgical wound is dry and clean - EXTREMITIES: No edema. Peripheral puls es 2+. Non-tender. - NEUROLOGIC: No focal neurological defi cits. CN II-XII grossly intact. - PSYCHIATRIC: Awake, Alert and oriented x 3. Appropriate mood and affect. - SKIN: No rashes or lesions. Warm. - LYMPH: No cervical lymphadenopathy. H&P: Results Labs Labs: Short CBC 04/22/24 Range/Units 22:16 WBC 14.3 H (4.5-10.0) K/mm3 Hgb 11.8 L D (12.0-15.0) g/dL Hct 36.4 L (37.0-47.0) % Plt Count 506 H (150-375) k/mm3 BMP 04/22/24 22:16 Sodium 134 L Potassium 3.3 L Chloride 102 Carbon Dioxide 18 L BUN 14 Creatinine 1.20 H Glucose 179 H Calcium 8.4 Liver Function 04/22/24 Range/Units 22:16 Total Bilirubin 0.8 (0.2-1.3) mg/dL AST 27 (14-36) U/L ALT 21 (6-35) U/L Alkaline Phosphatase 187 H (38-126) U/L Albumin 3.6 (3.5-5.1) g/dL Urine 04/22/24 Range/Units 22:48 Urine Color Yellow (Yellow) Urine Appearance Cloudy H (Clear) Urine pH 5.5 (5.0-9.0) Ur Specific [place] 1.012 (1.001-1.035) Urine Protein 1+ H (Negative) mg/dL Urine Glucose (UA) Negative (Negative) mg/dL Assessment and Plan Assessment and plan (1) Small bowel obstruction: Code(s): K56.609 - Unspecified intestinal obstruction, unspecified as to partial versus complete obstruction Status: Acute (2) Acute UTI (urinary tract infection): Code(s): N39.0 - Urinary tract infection, site not specified Status: Acute (3) Sepsis: Code(s): A41.9 - Sepsis, unspecified organism Status: Acute (4) High anion gap metabolic acidosis: Code(s): E87.29 - Other acidosis Status: Acute (5) Hyponatremia: Code(s): E87.1 - Hypo-osmolality and hyponatremia Status: Acute (6) Hypokalemia: Code(s): E87.6 - Hypokalemia Status: Acute (7) Acute renal failure: Code(s): N17.9 - Acute kidney failure, unspecified Status: Acute (8) Hypothyroidism: Qualifiers: Hypothyroidism type: acquired Qualified Code(s): E03.9 - Hypot hyroidism, unspecified Code(s): E03.9 - Hypothyroidism, unspecified Status: Acute (9) Iron deficiency anemia: Code(s): D50.9 - Iron deficiency anemia, unspecified Status: Acute (10) Diabetes mellitus: Code(s): E11.9 - Type 2 diabetes mellitus without complications Status: Acute (11) Infective enteritis: Code(s): A09 - Infectious gastroenteritis and colitis, unspecified Status: Acute Plan Small-bowel obstruction Patient has nausea vomiting abdomen pain, CT scan suggest persistent or redeveloping small bowel obstruction. Acute patient p.o. Start fluid resuscitation Optimize pain management Place NG tube if nausea getting worse Consult general surgeon for evaluation treatment Sepsis, infective enteritis, Upon arrival to ED, patient has tachycardia 100 per minutes, tachypnea 20 per m inutes, lab showed leukocytosis of 14,300, CT showed status post interval small-bowel resection, extensive inflammatory change or postoperative change throughout the central mesentery, with mild wall thickening of multiple small bowel loops and transverse colon. Correlate for infectious/inflammatory processes versus possibly postoperative change, Meeting criteria of sepsis, possible resulting from infective enteritis due to bacteriuria overgrowth due to obstruction. Sepsis also possible due to acute UTI Patient is on meropenem 1 g q.12 hours IV Follow-up blood culture, stool culture, urine culture Start fluid resuscitation Acute UTI UA shows pyuria, microscopic hematuria, cloudy urine, suggesting acute UTI Antibiotics see above Follow-up urine culture Hyponatremia, hypokalemia Likely secondary to nausea vomiting Start LR IV, replete with potassium chloride 40 mEq IV Follow-up BMP, magnesium, phosphorus level High anion gap metabolic acidosis Likely secondary to sepsis Start normal saline IV, follow-up lactic acid Repleted with potassium bicarbonate 50 to mEq p.o. once who in the ED Follow-up BMP Acquired hypothyroidism Patient is on Synthroid 100 mcg daily p.o., start Synthroid 75 mcg IV daily during p.o. Type 2 diabetes Hold glipizide p.o. Start insulin sliding scale q.6 hours p.r.n. p.o. Essential hypertension Hold hypertension medication, blood pressure is normal now Patient may stay more than 2 midnight during based on patient's condition and clinical diagnosis
[2024-04-23] MEDS: POTASSIUM CHLORIDE INJ 40 MEQ in SODIUM CHLORIDE 0.9% IV 500 ML 130 MEQ IVPB (08:54)
[2024-04-23 09:23] LABS: Lactic Acid Reflex 0.8 mmol/L (0.7-2.0)
[2024-04-23 09:24] LABS: Magnesium 1.4 mg/dL (1.6-2.3); Phosphorus 2.8 mg/dL (2.5-4.5)
[2024-04-23] MEDS: ACETAMINOPHEN 325 MG TABLET 650 MG PO ×2 (10:33→14:30)
[2024-04-23] MEDS: LEVOTHYROXINE SODIUM INJ 100 MCG/5 ML VIAL 75 MCG IV PUSH (10:36)
[2024-04-23 14:25] LABS: Anion Gap 5 mmol/L (4-12); Blood Urea Nitrogen 11 mg/dL (7-17); Calcium 7.6 mg/dL (8.4-10.2); Carbon Dioxide 21 mmol/L (22-30); Chloride 107 mmol/L (98-107); Estimated CRCL calculation 55 ml/min; Estimated Glomerular Filt Rate > 60; Glucose 108 mg/dL (65-110); Potassium 3.8 mmol/L (3.4-5.0); Sodium 133 mmol/L (137-145)
[2024-04-23] MEDS: MORPHINE SULFATE (*CRX) 2 MG/ML INJ IV PUSH ×2 (15:00→20:45)
--- NOTE | 2024-04-23 16:42 | PM.CNGS ---
Assessment and Plan Assessment and plan (1) Nausea vomiting and diarrhea: Code(s): R11.2 - Nausea with vomiting, unspecified; R19.7 - Diarrhea, unspecified Status: Acute Assessment and Plan: I reviewed her CT and most of the findings appear typical for this stage in her postoperative recovery. There is no sign of abscess or anastomotic leak. She does not seem to have signs of an obstruction as she has been moving her bowels for the past 2 weeks. She also recently had a small-bowel follow-through which showed no evidence of obstruction. There is nothing more surgically that I can recommend at this time. Could consider GI evaluation for any further medical treatment for intractable nausea or vomiting. History of Present Illness Consult details Consult date: 04/23/24 Reason for consult: other (Nausea, vomiting, diarrhea) Requesting physician: Clarisse Ortiz MD Narrative: Patient was readmitted overnight for nausea, vomiting, and diarrhea after just being discharged 2 days ago. I am asked to see the patient for any further surgical recommendations. Patient was hospitalized for several weeks for a small-bowel obstruction. She had exploratory laparotomy with extensive adhesiolysis and small-bowel resection x2 on 04/04/2024. She had a prolonged postoperative ileus and was on TPN for about a week and a half. She was concerned about the profuse diarrhea yesterday and becoming dehydrated. Today she is having no more nausea or vomiting. She denies any more diarrhea. She denies any abdominal pain. Review of Systems Review of Systems: All systems reviewed & are unremarkable except as noted in HPI and below Eyes: Eyes: Denies change in vision ENT: Denies hearing loss, Denies neck pain and Denies sore throat Cardiovascular: Cardiovascular: Denies chest pain and Denies dyspnea Respiratory: Respiratory: Denies cough, Denies dyspnea and Denies wheezing Gastrointestinal: Gastrointestinal: Reports as per HPI Genitourinary: Genitourinary: Denies hematuria and Denies dysuria Musculoskeletal: Musculoskeletal: Denies arthralgias, Denies joint swelling and Denies neck pain Allergic/Immunologic: Allergic/Immunologic: Denies wheezing [facility] Past Medical History Medical History Atrial fibrillation Breast cancer Bullous pemphigoid Diabetes mellitus Essential hypertension Hyperlipidemia Hypothyroidism Hypothyroidism Iron deficiency anemia MGUS (monoclonal gammopathy of unknown significance) Shingles Small bowel obstruction Multiple small-bowel obstructions over the course of 20+ years. Surgical History Surgical History History of appendectomy History of exploratory laparotomy (~2009) Due to small-bowel obstruction History of lumpectomy of right breast History of tubal ligation Hx of cholecystectomy Family History Family History Mother , in her 90s Dementia Father , at age 72 Coronary artery disease Hx of CABG Social History Social History Social History: She lives in [place] with her of 44 years. They have 2 children. She is a former smoker but ?did not smoke that much?. She she does not drink alcohol. 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: Years smoked: 47 Smoking status: Former smoker Second hand tobacco smoke exposure: Yes Alcohol intake: never Alcohol use details: occasional glass of wine Substance use: current Substance use type: marijuana Last use: t-2 Do You Feel Safe in your Home?: Yes Lack of Transportation: No Lack of Food: Never True Current Housing: I Have Housing Concerned About Future Housing: No Difficulty Paying Gas/Electric Bills: No Difficulty Paying for Meds: No Currently Unemployed: No Education: High School Diploma/GED Difficulty w/ Childcare or Family Care: No Living arrangements: with family Gender identity (if verbalized by the patient): Female Spiritual care concerns: No Meds Home Medications and Allergies Home Medications Medication Instructions Recorded Confirmed Type amlodipine 10 mg tablet 10 mg PO DAILY 02/05/21 04/23/24 History fenofibrate 160 mg tablet 160 mg PO DAILY 02/05/21 04/23/24 History rosuvastatin 40 mg tablet 40 mg PO DAILY 02/05/21 04/23/24 History erythromycin 2 % topical solution 1 ml topical TID Itching 05/01/22 04/23/24 History ondansetron HCl 4 mg tablet 4 mg PO Q4H PRN Nausea 05/01/22 04/23/24 History pregabalin 150 mg capsule (Lyrica) 300 mg PO Q12H 05/01/22 04/23/24 History levothyroxine 100 mcg tablet 100 mcg PO DAILY 05/17/22 04/23/24 History oxycodone-acetaminophen 5 mg-325 1 tablet PO Q6H PRN Pain, Moderate 05/17/22 04/23/24 History mg tablet memantine 5 mg tablet 5 mg PO BID 09/06/23 04/23/24 History naproxen 375 mg tablet 375 mg PO Q72H PRN Pain, Mild 09/06/23 04/23/24 History triamcinolone acetonide 0.1 % 1 applic topical BID PRN if open 09/06/23 04/23/24 History topical ointment areas diphenhydramine HCl 25 mg capsule 25 mg PO Q6H PRN Itching 04/02/24 04/23/24 History (Allergy (diphenhydramine)) docusate sodium 100 mg capsule 100 mg PO BID 04/02/24 04/23/24 History (Colace) ergocalciferol (vitamin D2) 50,000 50,000 unit PO WEEKLY 04/02/24 04/23/24 History unit tablet glipizide 10 mg tablet, extended 10 mg PO DAILY 04/02/24 04/23/24 History release 24 hr hydrocortisone 2.5 % topical cream 1 applic topical BID 04/02/24 04/23/24 History multivitamin 1 tablet PO DAILY 04/02/24 04/23/24 History polyvinyl alcohol-povidone 1.4 1 drp ophthalmic (eye) QID PRN Dry 04/02/24 04/23/24 History %-0.6 % eye drops Eyes silver sulfadiazine 1 % topical 1 applic topical BID PRN blisters 04/02/24 04/23/24 History cream pantoprazole 40 mg tablet,delayed 40 mg PO Q12HR #30 tabs 04/20/24 04/23/24 Rx release promethazine 25 mg tablet 25 mg PO Q4H PRN Nausea And 04/20/24 04/23/24 Rx Vomiting #10 tabs Allergies Allergy/AdvReac Type Severity Reaction Status Date / Time gemfibrozil Allergy Intermediate Rash Verified 04/23/24 06:18 hydrochlorothiazide Allergy Intermediate Rash Verified 04/23/24 06:18 irbesartan Allergy Intermediate Hives Verified 04/23/24 06:18 niacinamide Allergy Intermediate Rash Verified 04/23/24 06:18 amoxicillin [From Augmentin] AdvReac Intermediate Diarrhea Verified 04/23/24 06:18 clavulanic acid AdvReac Intermediate Diarrhea Verified 04/23/24 06:18 [From Augmentin] hydrocodone AdvReac Intermediate Dizziness Verified 04/23/24 06:18 lisinopril AdvReac Intermediate Dizziness Verified 04/23/24 06:18 Vital Signs Vital Signs - 24 hr 04/22/24 20:31 04/22/24 22:55 04/22/24 23:44 Temperature 98 F 98 F 97 F L Pulse Rate 108 H 88 97 Respiratory Rate 15 16 16 Blood Pressure 133/69 110/62 Pulse Oximetry 98 97 97 Oxygen Delivery Room Air 04/23/24 01:27 04/23/24 03:52 04/23/24 06:18 Temperature 98.1 F 97.5 F L 98.1 F Pulse Rate 85 87 89 Respiratory Rate 16 16 16 Blood Pressure 113/58 L 125/69 138/73 Pulse Oximetry 96 95 99 Oxygen Delivery 04/23/24 06:52 04/23/24 06:55 04/23/24 08:00 Temperature 98.0 F Pulse Rate 83 83 Respiratory Rate 20 20 Blood Pressure 135/66 Pulse Oximetry 100 100 Oxygen Delivery Room Air Room Air 04/23/24 10:51 04/23/24 14:00 04/23/24 06:25 Temperature 97.2 F L 98.1 F Pulse Rate 80 89 Respiratory Rate 18 Blood Pressure 147/69 H 138/73 Pulse Oximetry 97 99 99 Oxygen Delivery Room Air Exam Const: General: alert; No acute distress Orientation/consciousness: patient oriented x3 Limitations: no limitations HENMT: Head: normocephalic and atraumatic Ears: hearing grossly normal bilaterally Face/Nose/Sinus: Normal external nose present and Normal nares present Mouth: Yes Normal oral and palatal mucosa present and Yes moist mucous membranes Eyes: General: appearance normal, both eyes and all related structures Conjunctivae: conjunctivae normal Sclera: sclerae normal Pupils: Equal, round and reactive pupils present EOM: EOMs intact bilaterally Neck: Neck: normal visual inspection, full ROM, no lymphadenopathy, supple and no JVD Lymphatic: no lymphadenopathy noted Chest: Chest palpation & inspection: normal inspection of the chest Resp: Effort & Inspection: normal respiratory effort and able to speak in complete sentences Auscultation: clear to auscultation bilaterally Percussion: percussion normal Cardio: Jugular venous distension: no JVD Rate: regular rate Rhythm: regular rhythm Heart sounds: S1 normal heart sound present and S2 normal heart sound present Peripheral pulses: Peripheral pulses 2+ throughout GI: Inspection: normal to inspection, non-distended and incision (healing well) GI Palp: Yes Tenderness to palpation present (GI) (mild generalized), No Guarding due to palpation present (GI) and No Rebound tenderness present Auscultation: normal bowel sounds : General: Yes no CVA tenderness Back/Spine/Pelvis: Back: no CVA tenderness Skin: General skin exam: normal color and dry skin Neuro: General: patient oriented x3, gait normal, moves all extremities, no focal motor deficits and CN's II-XI intact bilaterally Cranial nerves: Yes Equal, round and reactive pupils present Speech: normal speech Extrem: General: normal to inspection and capillary refill normal Results Labs 04/22/24 22:16 04/23/24 13:59 Labs: Abnormal lab results 04/22/24 04/22/24 04/23/24 Range/Units 22:16 22:48 09:05 WBC 14.3 H (4.5-10.0) K/mm3 RBC 3.97 L (4.2-5.4) M/mm3 Hgb 11.8 L D (12.0-15.0) g/dL Hct 36.4 L (37.0-47.0) % RDW 15.6 H (11.5-14.5) % Plt Count 506 H (150-375) k/mm3 Immature Gran % (Auto) 1.4 H (0-0.5) % Neut % (Auto) 75.6 H (45.5-73.1) % Lymph % (Auto) 13.5 L (18.3-44.2) % [place] # (Auto) 1.1 H (0.1-0.6) K/mm3 Abs Immat Gran (auto) 0.20 H (0.00-0.031) K/mm3 Absolute Neuts (auto) 10.8 H (1.3-6.7) K/mm3 Sodium 134 L (137-145) mmol/L Potassium 3.3 L (3.4-5.0) mmol/L Carbon Dioxide 18 L (22-30) mmol/L Anion Gap 14 H (4-12) mmol/L Creatinine 1.20 H (0.7-1.0) mg/dL Estimated GFR 44 L (59 - ) Glucose 179 H (65-110) mg/dL Calcium (8.4-10.2) mg/dL Magnesium 1.4 L (1.6-2.3) mg/dL Alkaline Phosphatase 187 H (38-126) U/L Urine Appearance Cloudy H (Clear) Urine Protein 1+ H (Negative) mg/dL Urine Ketones Trace H (Negative) mg/dL Ur Blood (Man) 1+ H (Negative) Leukocyte Esterase Rfl Trace H (Negative) FREDY/UL Urine RBC 6-10 H (0-2) /hpf Urine WBC 21-50 H (0-3) /hpf Urine Yeast (Budding) Present H (None) /hpf 11/13/24 Range/Units 13:59 WBC (4.5-10.0) K/mm3 RBC (4.2-5.4) M/mm3 Hgb (12.0-15.0) g/dL Hct (37.0-47.0) % RDW (11.5-14.5) % Plt Count (150-375) k/mm3 Immature Gran % (Auto) (0-0.5) % Neut % (Auto) (45.5-73.1) % Lymph % (Auto) (18.3-44.2) % [place] # (Auto) (0.1-0.6) K/mm3 Abs Immat Gran (auto) (0.00-0.031) K/mm3 Absolute Neuts (auto) (1.3-6.7) K/mm3 Sodium 133 L (137-145) mmol/L Potassium (3.4-5.0) mmol/L Carbon Dioxide 21 L (22-30) mmol/L Anion Gap (4-12) mmol/L Creatinine (0.7-1.0) mg/dL Estimated GFR (59 - ) Glucose (65-110) mg/dL Calcium 7.6 L (8.4-10.2) mg/dL Magnesium (1.6-2.3) mg/dL Alkaline Phosphatase (38-126) U/L Urine Appearance (Clear) Urine Protein (Negative) mg/dL Urine Ketones (Negative) mg/dL Ur Blood (Man) (Negative) Leukocyte Esterase Rfl (Negative) FREDY/UL Urine RBC (0-2) /hpf Urine WBC (0-3) /hpf Urine Yeast (Budding) (None) /hpf Diabetes panel 04/22/24 04/23/24 Range/Units 22:16 13:59 Sodium 134 L 133 L (137-145) mmol/L Potassium 3.3 L 3.8 (3.4-5.0) mmol/L Chloride 102 107 (98-107) mmol/L Carbon Dioxide 18 L 21 L (22-30) mmol/L BUN 14 11 (7-17) mg/dL Creatinine 1.20 H 0.70 (0.7-1.0) mg/dL Glucose 179 H 108 (65-110) mg/dL Calcium 8.4 7.6 L (8.4-10.2) mg/dL AST 27 (14-36) U/L ALT 21 (6-35) U/L Alkaline Phosphatase 187 H (38-126) U/L Total Protein 7.0 (6.3-8.2) g/dL Albumin 3.6 (3.5-5.1) g/dL Calcium panel 04/22/24 04/23/24 04/23/24 Range/Units 22:16 09:05 13:59 Calcium 8.4 7.6 L (8.4-10.2) mg/dL Phosphorus 2.8 (2.5-4.5) mg/dL Albumin 3.6 (3.5-5.1) g/dL Pituitary panel 04/22/24 04/23/24 Range/Units 22:16 13:59 Sodium 134 L 133 L (137-145) mmol/L Potassium 3.3 L 3.8 (3.4-5.0) mmol/L Chloride 102 107 (98-107) mmol/L Carbon Dioxide 18 L 21 L (22-30) mmol/L BUN 14 11 (7-17) mg/dL Creatinine 1.20 H 0.70 (0.7-1.0) mg/dL Glucose 179 H 108 (65-110) mg/dL Calcium 8.4 7.6 L (8.4-10.2) mg/dL Adrenal panel 04/22/24 04/23/24 Range/Units 22:16 13:59 Sodium 134 L 133 L (137-145) mmol/L Potassium 3.3 L 3.8 (3.4-5.0) mmol/L Chloride 102 107 (98-107) mmol/L Carbon Dioxide 18 L 21 L (22-30) mmol/L BUN 14 11 (7-17) mg/dL Creatinine 1.20 H 0.70 (0.7-1.0) mg/dL Glucose 179 H 108 (65-110) mg/dL Calcium 8.4 7.6 L (8.4-10.2) mg/dL Total Bilirubin 0.8 (0.2-1.3) mg/dL AST 27 (14-36) U/L ALT 21 (6-35) U/L Alkaline Phosphatase 187 H (38-126) U/L Total Protein 7.0 (6.3-8.2) g/dL Albumin 3.6 (3.5-5.1) g/dL All other labs normal. Imaging Additional studies: ITS Impressions Abdomen/Pelvis CT 04/23/24 05:58 Impression: Status post interval small bowel resection. There is extensive inflammatory change or postoperative change throughout the central mesentery, with mild wall thickening of multiple small bowel loops and transverse colon. Correlate for infectious/inflammatory processes versus possibly postoperative change. No definite abscess/extraluminal fluid collection. Persistent dilatation of upstream small bowel loops, with relative transition point at the anastomosis. Persistent or redeveloping small bowel obstruction should be considered. Possible cystitis versus underdistention. Correlate with urinalysis.
[2024-04-23 17:04] LABS: Glucose Point of Care 109 mg/dl (65-105)
[2024-04-23] MEDS: ONDANSETRON INJ 4 MG/2 ML VIAL IV PUSH (18:20)
[2024-04-24 01:01] LABS: Glucose Point of Care 105 mg/dl (65-105)
[2024-04-24] MEDS: ONDANSETRON INJ 4 MG/2 ML VIAL IV PUSH ×3 (01:33→12:09)
[2024-04-24] MEDS: MORPHINE SULFATE (*CRX) 2 MG/ML INJ IV PUSH ×2 (01:33→20:50)
[2024-04-24] MEDS: LACTATED RINGERS 1,000 ML 125 ML IV CONT ×3 (05:09→22:11)
[2024-04-24 05:29] LABS: Glucose Point of Care 135 mg/dl (65-105)
[2024-04-24 06:00] VITALS: BP 165/63; PULSE 89; RESP 18; TEMP 36.7; O2SAT 98
[2024-04-24] MEDS: MEROPENEM 1 GM/NS 100 ML 1 GM/100 ML BAG IVPB (06:08)
[2024-04-24] MEDS: LEVOTHYROXINE SODIUM INJ 100 MCG/5 ML VIAL 75 MCG IV PUSH (06:08)
[2024-04-24 06:21] LABS: Magnesium 1.2 mg/dL (1.6-2.3); Phosphorus 2.3 mg/dL (2.5-4.5)
--- NOTE | 2024-04-24 09:13 | P.PNIM_ITS ---
Progress Note: A&P Assessment and Plan (1) Small bowel obstruction: Code(s): K56.609 - Unspecified intestinal obstruction, unspecified as to partial versus complete obstruction Status: Acute (2) Acute UTI (urinary tract infection): Code(s): N39.0 - Urinary tract infection, site not specified Status: Acute (3) Sepsis: Code(s): A41.9 - Sepsis, unspecified organism Status: Acute (4) High anion gap metabolic acidosis: Code(s): E87.29 - Other acidosis Status: Acute (5) Hyponatremia: Code(s): E87.1 - Hypo-osmolality and hyponatremia Status: Acute (6) Hypokalemia: Code(s): E87.6 - Hypokalemia Status: Acute (7) Acute renal failure: Code(s): N17.9 - Acute kidney failure, unspecified Status: Acute (8) Hypothyroidism: Qualifiers: Hypothyroidism type: acquired Qualified Code(s): E03.9 - Hypothyroidism, unspecified Code(s): E03.9 - Hypothyroidism, unspecified Status: Acute (9) Iron deficiency anemia: Code(s): D50.9 - Iron deficiency anemia, unspecified Status: Acute (10) Diabetes mellitus: Code(s): E11.9 - Type 2 diabetes mellitus without complications Status: Acute (11) Infective enteritis: Code(s): A09 - Infectious gastroenteritis and colitis, unspecified Status: Acute Plan Small-bowel obstruction Patient has nausea vomiting abdomen pain, CT scan suggest persistent or redeveloping small bowel obstruction. Acute patient p.o. Start fluid resuscitation Optimize pain management Place NG tube if nausea getting worse Consult general surgeon for evaluation treatment 04/24: Patient is on liquid diet, advance as tolerable, appreciate general surgeon's input Sepsis, infective enteritis, Upon arrival to ED, patient has tachycardia 100 per minutes, tachypnea 20 per minutes, lab showed leukocytosis of 14,300, CT showed status post interval small-bowel resection, extensive inflammatory change or postoperative change throughout the central mesentery, with mild wall thickening of multiple small bowel loops and transverse colon. Correlate for infectious/inflammatory processes versus possibly postoperative change, Meeting criteria of sepsis, possible resulting from infective enteritis due to bacteriuria overgrowth due to obstruction. Sepsis also possible due to acute UTI Patient is on meropenem 1 g q.12 hours IV Follow-up blood culture no growth so far, urine culture: E coli Received fluid resuscitation Sepsis resolved Acute UTI UA shows pyuria, microscopic hematuria, cloudy urine, suggesting acute UTI Antibiotics see above Follow-up urine culture: E coli, pending susceptibility Hyponatremia, hypokalemia Likely secondary to nausea vomiting Start LR IV, replete with potassium chloride 40 mEq IV Follow-up BMP, magnesium, phosphorus level Patient has hypophosphatemia, hypomagnesemia Phosphate is 2.3, magnesium 1.2 Provide K-Phos and minutes in sulfate 2 g IV push High anion gap metabolic acidosis Likely secondary to sepsis Start normal saline IV, follow-up lactic acid Repleted with potassium bicarbonate 50 to mEq p.o. once in the ED Follow-up BMP Resolved Acquired hypothyroidism Patient is on Synthroid 100 mcg daily p.o., start Synthroid 75 mcg IV daily during p.o. Type 2 diabetes Hold glipizide p.o. Start insulin sliding scale q.6 hours p.r.n. p.o. Essential hypertension Hold hypertension medication, blood pressure is normal now Patient may stay more than 2 midnight during based on patient's condition and clinical diagnosis Subjective Date/time seen: 04/24/24 09:13 Interval history: Saw and examined the patient today. Patient still feeling nauseous morning, but tolerate liquid diet well. Patient denies vomiting diarrhea. Afebrile, blood pressure stable Exam Narrative: GENERAL: Pleasant, in no acute distress. Well-nourished. - EYES: EOMI. Anicteric. - HENT: Moist mucous membranes. - LUNGS: Clear to auscultation bilateral ly, no wheezing, rhonchi, or rales. - CARDIOVASCULAR: Regular rate and rhyth m. No murmur. No JVD. - ABDOMEN: Soft, diffused abdominal tend er not distended. No palpable masses. Surgical wound is dry and clean - EXTREMITIES: No edema. Peripheral puls es 2+. Non-tender. - NEUROLOGIC: No focal neurological defi cits. CN II-XII grossly intact. - PSYCHIATRIC: Awake, Alert and oriented x 3. Appropriate mood and affect. - SKIN: Left frontal skin tenderness, n o rashes - LYMPH: No cervical lymphadenopathy. Objective Data Vital Signs Vital Signs: Vital Signs - 24 hr 04/23/24 10:51 04/23/24 14:00 04/23/24 20:40 Temperature 97.2 F L Pulse Rate 80 Respiratory Rate 18 Blood Pressure 147/69 H Pulse Oximetry 97 99 99 Oxygen Delivery Room Air Room Air 04/23/24 22:00 04/24/24 06:00 04/24/24 08:00 Temperature 97.4 F L 98.1 F Pulse Rate 80 89 Respiratory Rate 18 18 Blood Pressure 162/82 H 165/63 H Pulse Oximetry 99 98 Oxygen Delivery Room Air Intake/Output Intake/Output: Intake & Output 04/21/24 04/22/24 04/23/24 04/24/24 23:59 23:59 23:59 23:59 Intake Total 3180 1100 Output Total 1050 1700 Balance 2130 -600 Meds/Results Medications: Active Medications Generic Name Dose Route Start Last Admin Trade Name Freq PRN Reason Stop Dose Admin Acetaminophen 650 mg 04/23/24 05:39 04/23/24 14:30 Acetaminophen 325 Mg Tablet PO 650 mg Q4H PRN Administration Mild Pain (1-3) or Fever Dextrose 12.5 gm 04/23/24 08:21 Dextrose 50% 25 Gm/50 Ml Syringe IV PUSH PRN PRN Hypoglycemia Protocol Glucagon 1 mg 04/23/24 08:21 Glucagon For Inj 1 Mg Vial IM PRN PRN Hypoglycemia Protocol Glucose 15 gm 04/23/24 08:21 Glucose Oral Gel 15 Gm Of Glucse In 37.5 Gm Tube PO PRN PRN Hypoglycemia Protocol Lactated Ringer's 1,000 mls @ 125 mls/hr 04/23/24 05:40 04/24/24 05:09 Lr - Lactated Ringers Iv IV CONT 125 mls/hr .Q8H SHAKILA Administration Meropenem 1 gm in 100 mls @ 200 mls/hr 04/23/24 07:00 04/24/24 06:38 IVPB Infused Q12H SHAKILA Infusion Dextrose 1,000 mls @ 100 mls/hr 04/23/24 08:21 Dextrose 5% 1,000 Ml IVPB PRN PRN Hypoglycemia Protocol Insulin Aspart 2 - 5 units 04/23/24 12:00 04/24/24 05:30 Insulin Aspart (*Bkc) 100 Units/Ml SUB-Q Not Given Q6HR SHAKILA Protocol Levothyroxine Sodium 75 mcg 04/23/24 08:25 04/24/24 06:08 Levothyroxine Sodium Inj 100 Mcg/5 Ml Vial IV PUSH 75 mcg DAILY@0630 SHAKILA Administration Morphine Sulfate 2 mg 04/23/24 14:52 04/24/24 01:33 Morphine Sulfate (*Crx) 2 Mg/Ml Inj IV PUSH 2 mg Q4H PRN Administration Pain Rated 7-10 Ondansetron HCl 4 mg 04/23/24 05:39 04/24/24 05:30 Ondansetron Inj 4 Mg/2 Ml Vial IV PUSH 4 mg Q4H PRN Administration Nausea Radiology Results: ITS Impressions Abdomen/Pelvis CT 04/23/24 05:58 Impression: Status post interval small bowel resection. There is extensive inflammatory change or postoperative change throughout the central mesentery, with mild wall thickening of multiple small bowel loops and transverse colon. Correlate for infectious/inflammatory processes versus possibly postoperative change. No definite abscess/extraluminal fluid collection. Persistent dilatation of upstream small bowel loops, with relative transition point at the anastomosis. Persistent or redeveloping small bowel obstruction should be considered. Possible cystitis versus underdistention. Correlate with urinalysis. Labs Labs: Laboratory Results - last 24 hr 04/23/24 04/23/24 04/23/24 09:05 13:59 17:01 Sodium 133 L Potassium 3.8 Chloride 107 Carbon Dioxide 21 L Anion Gap 5 BUN 11 Creatinine 0.70 Estim Creat Clear Calc 55 Estimated GFR > 60 Glucose 108 POC Capillary Glucose 109 H Lactic Acid 0.8 Calcium 7.6 L Phosphorus 2.8 Magnesium 1.4 L 04/24/24 04/24/24 04/24/24 00:58 05:26 05:37 Sodium Potassium Chloride Carbon Dioxide Anion Gap BUN Creatinine Estim Creat Clear Calc Estimated GFR Glucose POC Capillary Glucose 105 135 H Lactic Acid Calcium Phosphorus 2.3 L Magnesium 1.2 L
[2024-04-24 09:43] LABS: Anion Gap 10 mmol/L (4-12); Blood Urea Nitrogen 6 mg/dL (7-17); Carbon Dioxide 24 mmol/L (22-30); Chloride 100 mmol/L (98-107); Estimated CRCL calculation 63 ml/min; Estimated Glomerular Filt Rate > 60; Glucose 117 mg/dL (65-110); Potassium 3.1 mmol/L (3.4-5.0); Sodium 134 mmol/L (137-145)
[2024-04-24 09:57] LABS: Basophils Absolute Auto 0.1 K/mm3 (0.0-0.1); Basophils Percent Auto 0.6 % (0.2-1.2); Eosinophils Absolute Auto 0.1 K/mm3 (0-0.3); Eosinophils Percent Auto 0.9 % (0-4.4); Hematocrit 30.2 % (37.0-47.0); Hemoglobin 9.6 g/dL (12.0-15.0); Immature Granulocyte Absolute 0.15 K/mm3 (0.00-0.031); Immature Granulocyte Percent A 1.5 % (0-0.5); Lymphocytes Percent Auto 11.9 % (18.3-44.2); Mean Corpuscular HGB Conc 31.8 g/dl (32-36); Mean Corpuscular Volume 91.2 fl (80-100); Mean Platelet Volume 10.6 fl (7.4-10.4); Monocytes Absolute Auto 0.7 K/mm3 (0.1-0.6); Monocytes Percent Auto 6.8 % (2.6-8.5); Neutrophils Absolute Auto 7.9 K/mm3 (1.3-6.7); Neutrophils Percent Auto 78.3 % (45.5-73.1); Platelet Count Result 298 k/mm3 (150-375); Red Blood Count 3.31 M/mm3 (4.2-5.4); Red Cell Distribution Width 15.5 % (11.5-14.5); White Blood Count 10.1 K/mm3 (4.5-10.0)
[2024-04-24 12:09] LABS: Glucose Point of Care 131 mg/dl (65-105)
[2024-04-24] MEDS: POTASSIUM PHOS/SODIUM PHOS 250 MG TABLET PO (13:45)
[2024-04-24] MEDS: MAGNESIUM SULF 2 GM/WATER 50ML 2 GM/50 ML BAG IVPB (13:47)
[2024-04-24 14:00] VITALS: BP 163/64; PULSE 91; RESP 12; TEMP 36.4; O2SAT 99
[2024-04-24] MEDS: ONDANSETRON HCL ODT 4 MG TABLET PO ×2 (16:45→22:14)
[2024-04-24] MEDS: NITROFURANTOIN MONOHYD MACROCR 100 MG CAP PO (16:46)
[2024-04-24] MEDS: DOCUSATE SODIUM 100 MG CAPSULE PO (16:46)
[2024-04-24 18:28] LABS: Glucose Point of Care 144 mg/dl (65-105)
[2024-04-24 20:50] VITALS: PULSE 91; RESP 12; O2SAT 99
[2024-04-24] MEDS: MEMANTINE 5 MG TABLET PO (21:18)
[2024-04-24] MEDS: PANTOPRAZOLE 40 MG TABLET PO (21:18)
[2024-04-24] MEDS: PREGABALIN (*CRX) 75 MG CAPSULE 300 MG PO (21:18)
[2024-04-24 22:00] VITALS: BP 167/77; PULSE 98; RESP 18; TEMP 36.3; O2SAT 100
[2024-04-24] MEDS: PROMETHAZINE HCL 25 MG TABLET PO (22:55)
[2024-04-24] MEDS: diphenhydrAMINE HCl INJ 50 MG/ML VIAL 25 MG IV PUSH (23:32)
[2024-04-25] MEDS: LACTATED RINGERS 1,000 ML 125 ML IV CONT ×2 (03:32→11:16)
[2024-04-25] MEDS: LEVOTHYROXINE SODIUM INJ 100 MCG/5 ML VIAL 75 MCG IV PUSH (05:52)
[2024-04-25 05:53] LABS: Glucose Point of Care 122 mg/dl (65-105)
[2024-04-25 06:00] VITALS: BP 160/74; PULSE 91; RESP 18; TEMP 36.8; O2SAT 98
[2024-04-25 06:03] LABS: Basophils Absolute Auto 0.1 K/mm3 (0.0-0.1); Basophils Percent Auto 0.6 % (0.2-1.2); Eosinophils Absolute Auto 0.2 K/mm3 (0-0.3); Eosinophils Percent Auto 2.4 % (0-4.4); Hematocrit 31.5 % (37.0-47.0); Immature Granulocyte Absolute 0.08 K/mm3 (0.00-0.031); Immature Granulocyte Percent A 0.9 % (0-0.5); Lymphocytes Percent Auto 17.7 % (18.3-44.2); Mean Corpuscular HGB Conc 31.7 g/dl (32-36); Mean Corpuscular Hemoglobin 29.1 pg (26-34); Mean Corpuscular Volume 91.6 fl (80-100); Mean Platelet Volume 11.1 fl (7.4-10.4); Monocytes Absolute Auto 0.8 K/mm3 (0.1-0.6); Monocytes Percent Auto 8.5 % (2.6-8.5); Neutrophils Absolute Auto 6.3 K/mm3 (1.3-6.7); Neutrophils Percent Auto 69.9 % (45.5-73.1); Platelet Count Result 309 k/mm3 (150-375); Red Blood Count 3.44 M/mm3 (4.2-5.4); Red Cell Distribution Width 15.9 % (11.5-14.5); White Blood Count 9.1 K/mm3 (4.5-10.0)
[2024-04-25 06:14] LABS: Anion Gap 8 mmol/L (4-12); Blood Urea Nitrogen 3 mg/dL (7-17); Calcium 7.9 mg/dL (8.4-10.2); Carbon Dioxide 29 mmol/L (22-30); Chloride 97 mmol/L (98-107); Estimated CRCL calculation 63 ml/min; Estimated Glomerular Filt Rate > 60; Glucose 104 mg/dL (65-110); Magnesium 1.6 mg/dL (1.6-2.3); Phosphorus 2.5 mg/dL (2.5-4.5); Potassium 3.2 mmol/L (3.4-5.0); Sodium 134 mmol/L (137-145)
[2024-04-25] MEDS: ONDANSETRON HCL ODT 4 MG TABLET PO ×2 (06:20→11:17)
[2024-04-25] MEDS: MORPHINE SULFATE (*CRX) 2 MG/ML INJ IV PUSH (06:21)
--- NOTE | 2024-04-25 11:13 | PM.IMPN ---
Progress Note: A&P Assessment and Plan (1) Small bowel obstruction: Code(s): K56.609 - Unspecified intestinal obstruction, unspecified as to partial versus complete obstruction Status: Acute (2) Acute UTI (urinary tract infection): Code(s): N39.0 - Urinary tract infection, site not specified Status: Acute (3) Sepsis: Code(s): A41.9 - Sepsis, unspecified organism Status: Acute (4) High anion gap metabolic acidosis: Code(s): E87.29 - Other acidosis Status: Acute (5) Hyponatremia: Code(s): E87.1 - Hypo-osmolality and hyponatremia Status: Acute (6) Hypokalemia: Code(s): E87.6 - Hypokalemia Status: Acute (7) Acute renal failure: Code(s): N17.9 - Acute kidney failure, unspecified Status: Acute (8) Hypothyroidism: Qualifiers: Hypothyroidism type: acquired Qualified Code(s): E03.9 - Hypothyroidism, unspecified Code(s): E03.9 - Hypothyroidism, unspecified Status: Acute (9) Iron deficiency anemia: Code(s): D50.9 - Iron deficiency anemia, unspecified Status: Acute (10) Diabetes mellitus: Code(s): E11.9 - Type 2 diabetes mellitus without complications Status: Acute (11) Infective enteritis: Code(s): A09 - Infectious gastroenteritis and colitis, unspecified Status: Acute Plan Patient readmitted for nausea vomiting and diarrhea after discharge 2 days prior. She was recently hospitalized for small-bowel obstruction underwent exploratory laparotomy with extensive adhesiolysis and small-bowel resection x2 on 04/04/2024. She had prolonged postoperative ileus and was on TPN for about a week and a half. CT abdomen 04/23/2024 showed status post interval small bowel resection. There is extensive inflammatory change or postoperative change throughout the central mesentery, with mild wall thickening of multiple small bowel loops and transverse colon. Correlate for infectious/inflammatory processes versus possibly postoperative change. No definite abscess/extraluminal fluid collection. Persistent dilatation of upstream small bowel loops, with relative transition point at the anastomosis. Persistent or redeveloping small bowel obstruction should be considered. Possible cystitis versus underdistention. Correlate with urinalysis. Patient was started on IV fluids. She has been able to tolerate diet. Bowel movement has been more regular consistency now. General surgery was consulted and recommendations reviewed. # Sepsis, infective enteritis, Upon arrival to ED, patient has tachycardia 100 per minutes, tachypnea 20 per minutes, lab showed leukocytosis of 14,300, CT showed status post interval small-bowel resection, extensive inflammatory change or postoperative change throughout the central mesentery, with mild wall thickening of multiple small bowel loops and transverse colon. Correlate for infectious/inflammatory processes versus possibly postoperative change, Meeting criteria of sepsis, possible resulting from infective enteritis due to bacteriuria overgrowth due to obstruction. Sepsis also possible due to acute # UTI Patient is on meropenem 1 g q.12 hours IV Follow-up blood culture no growth so far, urine culture: E coli Received fluid resuscitation Sepsis resolved Switched to nitrofurantoin # Hyponatremia, hypokalemia Likely secondary to nausea vomiting Start LR IV, replete with potassium chloride 40 mEq IV Follow-up BMP, magnesium, phosphorus level # Patient has hypophosphatemia, hypomagnesemia Phosphate is 2.3, magnesium 1.2 Provide K-Phos and minutes in sulfate 2 g IV push # High anion gap metabolic acidosis Likely secondary to sepsis Start normal saline IV, follow-up lactic acid Repleted with potassium bicarbonate 50 to mEq p.o. once in the ED Follow-up BMP Resolved # Acquired hypothyroidism Patient is on Synthroid 100 mcg daily p.o., start Synthroid 75 mcg IV daily during p.o. # Type 2 diabetes Hold glipizide p.o. Start insulin sliding scale q.6 hours p.r.n. p.o. # Essential hypertension Hold hypertension medication, blood pressure is normal now # DVT prophylaxis Lovenox Subjective Date/time seen: 04/25/24 11:13 Interval history: Continues to feel weak and nauseated. On regular diet. Having bowel movement regularly. Formed stool reported by nursing staff. Review of Systems Review of Systems: All systems reviewed & are unremarkable except as noted in HPI and below Exam Narrative: GENERAL: Pleasant, in no acute distress. Well-nourished. - EYES: EOMI. Anicteric. - HENT: Moist mucous membranes. - LUNGS: Clear to auscultation bilaterally, no wheezing, rhonchi, or rales. - CARDIOVASCULAR: Regular rate and rhythm. No murmur. No JVD. - ABDOMEN: Soft, nontender not distended. Surgical scar noted which is well-healed No palpable masses. - EXTREMITIES: No edema. Peripheral pulses 2+. Non-tender. - NEUROLOGIC: No focal neurological deficits. CN II-XII grossly intact. - PSYCHIATRIC: Awake, Alert and oriented x 3. Appropriate mood and affect. - SKIN: Left frontal skin tenderness, no rashes - LYMPH: No cervical lymphadenopathy. Objective Data Vital Signs Vital Signs: Vital Signs - 24 hr 04/24/24 14:00 04/24/24 20:50 04/24/24 22:00 Temperature 97.6 F 97.4 F L Pulse Rate 91 91 98 Respiratory Rate 12 12 18 Blood Pressure 163/64 H 167/77 H Pulse Oximetry 99 99 100 Oxygen Delivery Room Air 04/25/24 06:00 Temperature 98.3 F Pulse Rate 91 Respiratory Rate 18 Blood Pressure 160/74 H Pulse Oximetry 98 Oxygen Delivery Intake/Output Intake/Output: Intake & Output 04/22/24 04/23/24 04/24/24 04/25/24 23:59 23:59 23:59 23:59 Intake Total 3180 3890 1240 Output Total 1050 1700 Balance 2130 2190 1240 Meds/Results Medications: Active Medications Generic Name Dose Route Start Last Admin Trade Name Freq PRN Reason Stop Dose Admin Acetaminophen 650 mg 04/23/24 05:39 04/23/24 14:30 Acetaminophen 325 Mg Tablet PO 650 mg Q4H PRN Administration Mild Pain (1-3) or Fever Amlodipine Besylate 10 mg 04/25/24 09:00 Amlodipine Besylate 10 Mg Tablet PO DAILY SHAKILA Artificial Tears 1 drop 04/24/24 12:17 Artificial Tears Ophth Soln 15 Ml Bottle EACH EYE QID PRN Dry Eye(s) Dextrose 12.5 gm 04/23/24 08:21 Dextrose 50% 25 Gm/50 Ml Syringe IV PUSH PRN PRN Hypoglycemia Protocol Diphenhydramine HCl 25 mg 04/24/24 12:04 Diphenhydramine Hcl Cap 25 Mg Capsule PO Q6H PRN Itching Docusate Sodium 100 mg 04/24/24 17:00 04/24/24 16:46 Docusate Sodium 100 Mg Capsule PO 100 mg BID SHAKILA Administration Ergocalciferol 50,000 units 04/25/24 09:00 Ergocalciferol 50,000 Units Capsule PO Fr@0900 SHAKILA Fenofibrate 160 mg 04/25/24 09:00 Fenofibrate 160 Mg Tablet PO DAILY SHAKILA Glucagon 1 mg 04/23/24 08:21 Glucagon For Inj 1 Mg Vial IM PRN PRN Hypoglycemia Protocol Glucose 15 gm 04/23/24 08:21 Glucose Oral Gel 15 Gm Of Glucse In 37.5 Gm Tube PO PRN PRN Hypoglycemia Protocol Hydrocortisone 1 applic 04/24/24 17:00 04/24/24 16:46 Hydrocortisone 2.5% Cream 30 Gm Tube TOPICAL Not Given BID SHAKILA Lactated Ringer's 1,000 mls @ 125 mls/hr 04/23/24 05:40 04/25/24 03:32 Lr - Lactated Ringers Iv IV CONT 125 mls/hr .Q8H SHAKILA Administration Dextrose 1,000 mls @ 100 mls/hr 04/23/24 08:21 Dextrose 5% 1,000 Ml IVPB PRN PRN Hypoglycemia Protocol Potassium Chloride 40 meq/ 520 mls @ 130 mls/hr 04/25/24 11:11 Sodium Chloride IVPB 04/25/24 15:10 ONCE ONE Insulin Aspart 2 - 5 units 04/23/24 12:00 04/25/24 05:52 Insulin Aspart (*Bkc) 100 Units/Ml SUB-Q Not Given Q6HR [facility] Protocol Levothyroxine Sodium 75 mcg 04/23/24 08:25 04/25/24 05:52 Levothyroxine Sodium Inj 100 Mcg/5 Ml Vial IV PUSH 75 mcg DAILY@0630 [facility] Administration Levothyroxine Sodium 100 mcg 04/25/24 06:30 04/25/24 05:52 Levothyroxine Sodium 100 Mcg Tablet PO Not Given DAILY@0630 [facility] Memantine 5 mg 04/24/24 21:00 04/24/24 21:18 Memantine 5 Mg Tablet PO 5 mg Q12HR SHAKILA Administration Miscellaneous Information 0 each 04/24/24 00:01 04/24/24 13:25 Erythromycin 2% Topical Is Non-Formulary. Use Pt Own Supply? XX 05/24/24 00:00 Not Given CLARIFY [facility] Morphine Sulfate 2 mg 04/23/24 14:52 04/25/24 06:21 Morphine Sulfate (*Crx) 2 Mg/Ml Inj IV PUSH 2 mg Q4H PRN Administration Pain Rated 7-10 Multivitamins Therapeutic 1 tablet 04/25/24 09:00 Multivitamins Therapeutic Tab (*Bkc) PO DAILY [facility] Naproxen 375 mg 04/24/24 12:04 Naproxen 375 Mg Tablet PO Q72H PRN Pain, Mild Nitrofurantoin Macrocrystals 100 mg 04/24/24 18:00 04/24/24 16:46 Nitrofurantoin Monohyd Macrocr 100 Mg Cap PO 04/29/24 09:01 100 mg Q12HR SHAKILA Administration Non-Formulary Medication 1 ml 04/24/24 13:00 Erythromycin TOPICAL 05/24/24 12:59 TID SHAKILA Ondansetron HCl 4 mg 04/24/24 12:04 04/25/24 06:20 Ondansetron Hcl Odt 4 Mg Tablet PO 4 mg Q4H PRN Administration Nausea Ondansetron HCl 4 mg 04/25/24 11:12 Ondansetron Hcl Odt 4 Mg Tablet PO Q6H PRN Nausea And Vomiting Pantoprazole Sodium 40 mg 04/24/24 21:00 04/24/24 21:18 Pantoprazole 40 Mg Tablet PO 40 mg Q12HR SHAKILA Administration Pregabalin 300 mg 04/24/24 21:00 04/24/24 21:18 Pregabalin (*Crx) 75 Mg Capsule PO 300 mg Q12HR [facility] Administration Promethazine HCl 25 mg 04/24/24 12:04 04/24/24 22:55 Promethazine Hcl 25 Mg Tablet PO 25 mg Q4H PRN Administration Nausea And Vomiting Rosuvastatin Calcium 40 mg 04/25/24 09:00 Rosuvastatin 20 Mg Tablet PO DAILY SHAKILA Silver Sulfadiazine 1 applic 04/24/24 12:19 Silver Sulfadiazine 1% Cr 50 Gm Jar (*Bkc) TOPICAL BID PRN blisters Triamcinolone Acetonide 1 applic 04/24/24 12:04 Triamcinolone Acet 0.1% Oint 15 Gm Tube TOPICAL BID PRN if open areas Radiology Results: ITS Impressions Abdomen/Pelvis CT 04/23/24 05:58 Impression: Status post interval small bowel resection. There is extensive inflammatory change or postoperative change throughout the central mesentery, with mild wall thickening of multiple small bowel loops and transverse colon. Correlate for infectious/inflammatory processes versus possibly postoperative change. No definite abscess/extraluminal fluid collection. Persistent dilatation of upstream small bowel loops, with relative transition point at the anastomosis. Persistent or redeveloping small bowel obstruction should be considered. Possible cystitis versus underdistention. Correlate with urinalysis. Labs Labs: Laboratory Results - last 24 hr 04/24/24 04/24/24 04/25/24 12:06 18:25 05:29 WBC 9.1 RBC 3.44 L Hgb 10.0 L Hct 31.5 L MCV 91.6 MCH 29.1 MCHC 31.7 L RDW 15.9 H Plt Count 309 MPV 11.1 H Immature Gran % (Auto) 0.9 H Neut % (Auto) 69.9 Lymph % (Auto) 17.[address] [place] % (Auto) 8.5 Eos % (Auto) 2.4 Baso % (Auto) 0.6 Lymph # (Auto) 1.60 [place] # (Auto) 0.8 H Eos # (Auto) 0.2 Baso # (Auto) 0.1 Abs Immat Gran (auto) 0.08 H Absolute Neuts (auto) 6.3 Absolute Nucleated RBC 0.000 Nucleated RBC % 0.0 Sodium 134 L Potassium 3.2 L Chloride 97 L Carbon Dioxide 29 Anion Gap 8 BUN 3 L Creatinine 0.60 L Estim Creat Clear Calc 63 Estimated GFR > 60 Glucose 104 POC Capillary Glucose 131 H 144 H Calcium 7.9 L Phosphorus 2.5 Magnesium 1.6 04/25/24 05:50 WBC RBC Hgb Hct MCV MCH MCHC RDW Plt Count MPV Immature Gran % (Auto) Neut % (Auto) Lymph % (Auto) [place] % (Auto) Eos % (Auto) Baso % (Auto) Lymph # (Auto) [place] # (Auto) Eos # (Auto) Baso # (Auto) Abs Immat Gran (auto) Absolute Neuts (auto) Absolute Nucleated RBC Nucleated RBC % Sodium Potassium Chloride Carbon Dioxide Anion Gap BUN Creatinine Estim Creat Clear Calc Estimated GFR Glucose POC Capillary Glucose 122 H Calcium Phosphorus Magnesium
[2024-04-25] MEDS: ERGOCALCIFEROL 50,000 UNITS CAPSULE 50000 UNITS PO (11:17)
[2024-04-25] MEDS: amLODIPine BESYLATE 10 MG TABLET PO (11:18)
[2024-04-25] MEDS: NITROFURANTOIN MONOHYD MACROCR 100 MG CAP PO ×2 (11:18→20:17)
[2024-04-25] MEDS: PANTOPRAZOLE 40 MG TABLET PO ×2 (11:20→20:17)
[2024-04-25] MEDS: PREGABALIN (*CRX) 75 MG CAPSULE 300 MG PO ×2 (11:20→20:17)
[2024-04-25] MEDS: MAGNESIUM SULF 2 GM/WATER 50ML 2 GM/50 ML BAG IVPB (11:28)
--- NOTE | 2024-04-25 12:06 | PC.NURSE ---
Patient refused half of AM medications and refused to take them until 1120 this Am, Dr. Steele made aware
[2024-04-25] MEDS: POTASSIUM CHLORIDE INJ 40 MEQ in SODIUM CHLORIDE 0.9% IV 500 ML 130 MEQ IVPB (12:45)
[2024-04-25 12:56] LABS: Glucose Point of Care 133 mg/dl (65-105)
[2024-04-25 14:00] VITALS: BP 167/82; PULSE 95; RESP 16; TEMP 36.3; O2SAT 98
[2024-04-25 17:39] LABS: Glucose Point of Care 120 mg/dl (65-105)
[2024-04-25] MEDS: MEMANTINE 5 MG TABLET PO (20:17)
[2024-04-25 20:36] VITALS: BP 156/75; PULSE 97; RESP 20; TEMP 36.3; O2SAT 92
[2024-04-26 00:13] LABS: Glucose Point of Care 121 mg/dl (65-105)
[2024-04-26] MEDS: LACTATED RINGERS 1,000 ML 75 ML IV CONT (05:33)
[2024-04-26] MEDS: LEVOTHYROXINE SODIUM 100 MCG TABLET PO (05:34)
[2024-04-26] MEDS: LEVOTHYROXINE SODIUM INJ 100 MCG/5 ML VIAL 75 MCG IV PUSH (05:36)
[2024-04-26 05:53] LABS: Basophils Absolute Auto 0.1 K/mm3 (0.0-0.1); Basophils Percent Auto 0.6 % (0.2-1.2); Eosinophils Absolute Auto 0.5 K/mm3 (0-0.3); Eosinophils Percent Auto 4.1 % (0-4.4); Hematocrit 35.1 % (37.0-47.0); Hemoglobin 11.1 g/dL (12.0-15.0); Immature Granulocyte Percent A 0.8 % (0-0.5); Lymphocytes Absolute Auto 1.55 K/mm3 (0.9-3.2); Lymphocytes Percent Auto 12.4 % (18.3-44.2); Mean Corpuscular HGB Conc 31.6 g/dl (32-36); Mean Corpuscular Hemoglobin 29.2 pg (26-34); Mean Corpuscular Volume 92.4 fl (80-100); Mean Platelet Volume 10.8 fl (7.4-10.4); Monocytes Absolute Auto 0.8 K/mm3 (0.1-0.6); Monocytes Percent Auto 6.5 % (2.6-8.5); Neutrophils Absolute Auto 9.4 K/mm3 (1.3-6.7); Neutrophils Percent Auto 75.6 % (45.5-73.1); Platelet Count Result 345 k/mm3 (150-375); Red Cell Distribution Width 16.1 % (11.5-14.5); White Blood Count 12.5 K/mm3 (4.5-10.0)
[2024-04-26 06:00] VITALS: BP 151/63; PULSE 102; RESP 16; TEMP 36.4; O2SAT 96
[2024-04-26 06:16] LABS: Glucose Point of Care 137 mg/dl (65-105)
[2024-04-26 06:20] LABS: Anion Gap 9 mmol/L (4-12); Blood Urea Nitrogen 3 mg/dL (7-17); Calcium 7.8 mg/dL (8.4-10.2); Carbon Dioxide 25 mmol/L (22-30); Chloride 98 mmol/L (98-107); Estimated CRCL calculation 63 ml/min; Estimated Glomerular Filt Rate > 60; Glucose 128 mg/dL (65-110); Phosphorus 2.6 mg/dL (2.5-4.5); Potassium 3.5 mmol/L (3.4-5.0); Sodium 132 mmol/L (137-145)
[2024-04-26 08:24] LABS: Glucose Point of Care 153 mg/dl (65-105)
[2024-04-26 09:10] VITALS: BP 138/62; PULSE 104
[2024-04-26] MEDS: amLODIPine BESYLATE 10 MG TABLET PO (09:19)
[2024-04-26] MEDS: MEMANTINE 5 MG TABLET PO (09:19)
[2024-04-26] MEDS: PANTOPRAZOLE 40 MG TABLET PO (09:19)
[2024-04-26] MEDS: PREGABALIN (*CRX) 75 MG CAPSULE 300 MG PO (09:19)
[2024-04-26] MEDS: ONDANSETRON HCL ODT 4 MG TABLET PO (09:19)
[2024-04-26] MEDS: MULTIVITAMINS THERAPEUTIC TAB (*BKC) 1 TABLET PO (09:19)
[2024-04-26] MEDS: ROSUVASTATIN 20 MG TABLET 40 MG PO (09:19)
[2024-04-26] MEDS: ENOXAPARIN 40 MG/0.4 ML SYRINGE SUB-Q (09:20)
[2024-04-26] MEDS: NITROFURANTOIN MONOHYD MACROCR 100 MG CAP PO (09:20)
[2024-04-26] MEDS: FENOFIBRATE 160 MG TABLET PO (09:20)
[2024-04-26] MEDS: DOCUSATE SODIUM 100 MG CAPSULE PO (09:20)
[2024-04-26] MEDS: oxyCODONE/ACETAMINOPHEN (*CRX) 5-325 MG TABLET 1 TABLET PO (10:44)
--- NOTE | 2024-04-26 11:55 | P.DS_ITS ---
DS: Admitting Diagnosis Discharge Date 04/26/2024 Admitting Diagnosis Nausea vomiting diarrhea DS: Discharge Diagnosis Discharge Diagnosis (1) Small bowel obstruction: Code(s): K56.609 - Unspecified intestinal obstruction, unspecified as to partial versus complete obstruction Status: Acute (2) Acute UTI (urinary tract infection): Code(s): N39.0 - Urinary tract infection, site not specified Status: Acute (3) Sepsis: Code(s): A41.9 - Sepsis, unspecified organism Status: Acute (4) High anion gap metabolic acidosis: Code(s): E87.29 - Other acidosis Status: Acute (5) Hyponatremia: Code(s): E87.1 - Hypo-osmolality and hyponatremia Status: Acute (6) Hypokalemia: Code(s): E87.6 - Hypokalemia Status: Acute (7) Acute renal failure: Code(s): N17.9 - Acute kidney failure, unspecified Status: Acute (8) Hypothyroidism: Qualifiers: Hypothyroidism type: acquired Qualified Code(s): E03.9 - Hypothyroidism, unspecified Code(s): E03.9 - Hypothyroidism, unspecified Status: Acute (9) Iron deficiency anemia: Code(s): D50.9 - Iron deficiency anemia, unspecified Status: Acute (10) Diabetes mellitus: Code(s): E11.9 - Type 2 diabetes mellitus without complications Status: Acute (11) Infective enteritis: Code(s): A09 - Infectious gastroenteritis and colitis, unspecified Status: Acute DS: Summary Hospital Course Hospital Course: Patient readmitted for nausea vomiting and diarrhea after discharge 2 days prior. She was recently hospitalized for small-bowel obstruction underwent exploratory laparotomy with extensive adhesiolysis and small-bowel resection x2 on 04/04/2024. She had prolonged postoperative ileus and was on TPN for about a week and a half. CT abdomen 04/23/2024 showed status post interval small bowel resection. There is extensive inflammatory change or postoperative change throughout the central mesentery, with mild wall thickening of multiple small bowel loops and transverse colon. Correlate for infectious/inflammatory processes versus possibly postoperative change. No definite abscess/extraluminal fluid collection. Persistent dilatation of upstream small bowel loops, with relative transition point at the anastomosis. Persistent or redeveloping small bowel obstruction should be considered. Possible cystitis versus underdistention. Correlate with urinalysis. Patient was started on IV fluids. She has been able to tolerate diet. Bowel movement has been more regular consistency now. General surgery was consulted and recommendations reviewed. # Sepsis, infective enteritis, Upon arrival to ED, patient has tachycardia 100 per minutes, tachypnea 20 per minutes, lab showed leukocytosis of 14,300, CT showed status post interval small-bowel resection, extensive inflammatory change or postoperative change throughout the central mesentery, with mild wall thickening of multiple small bowel loops and transverse colon. Correlate for infectious/inflammatory processes versus possibly postoperative change, Meeting criteria of sepsis, possible resulting from infective enteritis due to bacteriuria overgrowth due to obstruction. Sepsis also possible due to acute # UTI Patient is on meropenem 1 g q.12 hours IV Follow-up blood culture no growth so far, urine culture: E coli Received fluid resuscitation Sepsis resolved Switched to nitrofurantoin and will finish the course had at home # Hyponatremia, hypokalemia Likely secondary to nausea vomiting Stable and improved # Patient has hypophosphatemia, hypomagnesemia Phosphate is 2.3, magnesium 1.2 Replaced and monitored # High anion gap metabolic acidosis Likely secondary to sepsis Start normal saline IV, follow-up lactic acid Repleted with potassium bicarbonate 50 to mEq p.o. once in the ED Follow-up BMP Resolved # Acquired hypothyroidism Patient is on Synthroid 100 mcg daily p.o., start Synthroid 75 mcg IV daily during p.o. # Type 2 diabetes Hold glipizide p.o. Start insulin sliding scale q.6 hours p.r.n. p.o. # Essential hypertension Hold hypertension medication, blood pressure is normal now # DVT prophylaxis Lovenox Time Spent with Patient Time attestation: Total time spent providing and/or coordinating discharge services: 35 minutes Exam Narrative: GENERAL: Pleasant, in no acute distress. Well-nourished. - EYES: EOMI. Anicteric. - HENT: Moist mucous membranes. - LUNGS: Clear to auscultation bilateral ly, no wheezing, rhonchi, or rales. - CARDIOVASCULAR: Regular rate and rhyth m. No murmur. No JVD. - ABDOMEN: Soft, nontender not distended . Surgical scar noted which is well- healed No palpable masses. - EXTREMITIES: No edema. Peripheral puls es 2+. Non-tender. - NEUROLOGIC: No focal neurological defi cits. CN II-XII grossly intact. - PSYCHIATRIC: Awake, Alert and oriented x 3. Appropriate mood and affect. - SKIN: Left frontal skin tenderness, n o rashes - LYMPH: No cervical lymphadenopathy. DS: Data Data Completed and Pending Labs on day of discharge: Labs from last 24 hours 04/26/24 04/26/24 04/26/24 08:18 06:02 05:27 WBC 12.5 H RBC 3.80 L Hgb 11.1 L Hct 35.1 L MCV 92.4 MCH 29.2 MCHC 31.6 L RDW 16.1 H Plt Count 345 MPV 10.8 H Immature Gran % (Auto) 0.8 H Neut % (Auto) 75.6 H Lymph % (Auto) 12.4 L [place] % (Auto) 6.5 Eos % (Auto) 4.1 Baso % (Auto) 0.6 Lymph # (Auto) 1.55 [place] # (Auto) 0.8 H Eos # (Auto) 0.5 H Baso # (Auto) 0.1 Abs Immat Gran (auto) 0.10 H Absolute Neuts (auto) 9.4 H Absolute Nucleated RBC 0.000 Nucleated RBC % 0.0 Sodium 132 L Potassium 3.5 Chloride 98 Carbon Dioxide 25 Anion Gap 9 BUN 3 L Creatinine 0.60 L Estim Creat Clear Calc 63 Estimated GFR > 60 Glucose 128 H POC Capillary Glucose 153 H 137 H Calcium 7.8 L Phosphorus 2.6 Magnesium 2.0 04/26/24 04/25/24 04/25/24 00:08 17:34 12:53 WBC RBC Hgb Hct MCV MCH MCHC RDW Plt Count MPV Immature Gran % (Auto) Neut % (Auto) Lymph % (Auto) [place] % (Auto) Eos % (Auto) Baso % (Auto) Lymph # (Auto) [place] # (Auto) Eos # (Auto) Baso # (Auto) Abs Immat Gran (auto) Absolute Neuts (auto) Absolute Nucleated RBC Nucleated RBC % Sodium Potassium Chloride Carbon Dioxide Anion Gap BUN Creatinine Estim Creat Clear Calc Estimated GFR Glucose POC Capillary Glucose 121 H 120 H 133 H Calcium Phosphorus Magnesium Preliminary micro results at discharge 04/23/24 09:17 Blood Culture - Preliminary Blood 04/23/24 09:10 Blood Culture - Preliminary Blood Imaging Radiologist's impression: ITS Impressions Abdomen/Pelvis CT 04/23/24 05:58 Impression: Status post interval small bowel resection. There is extensive inflammatory change or postoperative change throughout the central mesentery, with mild wall thickening of multiple small bowel loops and transverse colon. Correlate for infectious/inflammatory processes versus possibly postoperative change. No definite abscess/extraluminal fluid collection. Persistent dilatation of upstream small bowel loops, with relative transition point at the anastomosis. Persistent or redeveloping small bowel obstruction should be considered. Possible cystitis versus underdistention. Correlate with urinalysis. Discharge Plan Discharge Attending physician on discharge: Thierry Steele Consulting providers: Chetan Friend Discharging Clinician: Thierry Steele Anticipated Discharge Date/Time: 04/26/24 11:58 Patient Disposition: Home, Self-Care Activity: as tolerated Diet: regular Patient Instructions: Antibiotic Form, Pain Management (DC) Stand Alone Forms: General Discharge Information Follow-up/Referrals: Pierre,DO Akhil [Primary Care Provider] - 1 Week Discharge Medications: New nitrofurantoin monohyd/m-cryst [Macrobid] 100 mg Capsule 100 mg PO Q12HR Qty: 6 0RF Continued erythromycin 2 % solution 1 ml topical TID Rx Instructions: To left eye ondansetron HCl 4 mg tablet 4 mg PO Q4H PRN (Reason: Nausea) pregabalin [Lyrica] 150 mg capsule 300 mg PO Q12H levothyroxine 100 mcg Tablet 100 mcg PO DAILY oxycodone-acetaminophen 5-325 mg Tablet 1 tablet PO Q6H PRN (Reason: Pain, Moderate) naproxen 375 mg tablet 375 mg PO Q72H PRN (Reason: Pain, Mild) Hold Instructions: Resume on 05/04/24. Restart at the discretion of PCP. Rx Instructions: med on hold triamcinolone acetonide 0.1 % ointment 1 applic TOPICAL BID PRN (Reason: if open areas) Rx Instructions: to open areas memantine 5 mg tablet 5 mg PO BID amlodipine 10 mg tablet 10 mg PO DAILY rosuvastatin 40 mg tablet 40 mg PO DAILY fenofibrate 160 mg tablet 160 mg PO DAILY multivitamin Tablet 1 tablet PO DAILY silver sulfadiazine 1 % Cream 1 applic TOPICAL BID PRN (Reason: blisters) Rx Instructions: apply a 1.5 mm thickness to blisters glipizide 10 mg tablet extended release 24hr 10 mg PO DAILY polyvinyl alcohol-povidone 1.4-0.6 % Drops 1 drp OPHTHALMIC (EYE) QID PRN (Reason: Dry Eyes) ergocalciferol (vitamin D2) 50,000 unit Tablet 50,000 unit PO WEEKLY Rx Instructions: takes on Fridays diphenhydramine HCl [Allergy (diphenhydramine)] 25 mg Capsule 25 mg PO Q6H PRN (Reason: Itching) docusate sodium [Colace] 100 mg Capsule 100 mg PO BID Hold Instructions: Resume on 04/26/24. Restart at the discretion of PCP. Rx Instructions: med on hold hydrocortisone 2.5 % Cream 1 applic TOPICAL BID Rx Instructions: left ear pantoprazole 40 mg Tablet,Delayed Release (Dr/Ec) 40 mg PO Q12HR Qty: 30 0RF promethazine 25 mg Tablet 25 mg PO Q4H PRN (Reason: Nausea And Vomiting) Qty: 10 0RF Date of admission: 04/23/24 05:39 Primary Care Provider: Pierre,Akhil Admitting Provider: Trista Jacome Attending physician on admission: Trista Jacome Condition: Stable
[2024-04-26 12:05] LABS: Glucose Point of Care 178 mg/dl (65-105)
[2024-04-26] MEDS: PROMETHAZINE HCL 25 MG TABLET PO (12:44)
[2024-04-26 14:00] VITALS: BP 133/81; PULSE 104; RESP 18; TEMP 37; O2SAT 95
== END 2024-04-26 16:30 | disposition home or self-care (01) ==
LOC: ANHED 23:05 → ANH2MED 04-23 06:25
PROVIDERS: Hospitalist; Admitting Provider Internal Medicine; Emergency Provider Student in an Organized Health Care Education/Training Program; PCP Student in an Organized Health Care Education/Training Program; Visit Provider Internal Medicine
DX: A41.9 Sepsis, unspecified organism (principal); A09 Infectious gastroenteritis and colitis, unspecified; N39.0 Urinary tract infection, site not specified; B96.20 Unspecified Escherichia coli [E. coli] as the cause of diseases classified elsewhere; N17.9 Acute kidney failure, unspecified; E87.1 Hypo-osmolality and hyponatremia; E87.6 Hypokalemia; E83.39 Other disorders of phosphorus metabolism; E83.42 Hypomagnesemia; E87.29 Other acidosis; D75.839 Thrombocytosis, unspecified; Z98.0 Intestinal bypass and anastomosis status; I48.91 Unspecified atrial fibrillation; L12.0 Bullous pemphigoid; E11.9 Type 2 diabetes mellitus without complications; I10 Essential (primary) hypertension; E03.9 Hypothyroidism, unspecified; D50.9 Iron deficiency anemia, unspecified; D47.2 Monoclonal gammopathy; Z20.822 Contact with and (suspected) exposure to COVID-19; Z66 Do not resuscitate; Z88.1 Allergy status to other antibiotic agents; Z87.891 Personal history of nicotine dependence; Z90.49 Acquired absence of other specified parts of digestive tract; Z79.84 Long term (current) use of oral hypoglycemic drugs; Z85.3 Personal history of malignant neoplasm of breast
CPT/HCPCS: 36415; 74177; 80048; 80053; 81001; 82948; 83605; 83690; 83735; 84100; 85025; 87040; 87077; 87086; 87186; 87636; 96361; 96365; 96366; 96367; 96372; 96375; 96376; 99285; A9270; G0378; J0650; J1200; J1650; J2185; J2270; J2405; J2543; J3475; J3480; J7030; J7040; J7120; Q9967

== ENCOUNTER 2024-05-28 14:45 | Outpatient (CLI) | payer MEDICARE, SELFPAY ==
--- NOTE | ~2024-05-28 | MM_ITS ---
EXAMINATION: MM screening ziggy BI w antonio HISTORY: Screening TECHNIQUE: Craniocaudal and mediolateral oblique 3-D tomosynthesis images were obtained and synthetic 2-D images were generated. CAD analysis was submitted and interpreted. COMPARISON: Comparison to multiple prior studies sequentially, with oldest reviewed study dated 12/2019. BREAST PARENCHYMAL COMPOSITION: Not dense: There are scattered areas of fibroglandular density. FINDINGS: There is no evidence of suspicious mass, calcification, or architectural distortion to sugg est malignancy in either breast. There has been no suspicious interval change. IMPRESSION: 1. No mammographic evidence of malignancy. 2. Recommend routine screening mammography in one year. BI-RADS Category 2: Benign finding(s). Reviewed, dictated and finalized at location B. [employer] PROC[employer]OR
== END 2024-05-28 14:46 | disposition home or self-care (01) ==
LOC: MICIMG 14:46
PROVIDERS: PCP Student in an Organized Health Care Education/Training Program; Visit Provider Internal Medicine Medical Oncology
DX: Z12.31 Encounter for screening mammogram for malignant neoplasm of breast (principal)
CPT/HCPCS: 77063; 77067

== ENCOUNTER 2024-06-24 05:41 | Emergency (ER) | payer MEDICARE, SELFPAY ==
[2024-06-24 07:09] VITALS: BP 156/82; PULSE 87; RESP 13; TEMP 36.5; O2SAT 99
--- NOTE | 2024-06-24 07:13 | ED_ITS ---
HPI - General Adult General Chief complaint: Unspecified Stated complaint: noticed blood and clots when she wiped Time Seen by Provider: 06/24/24 07:12 Source: patient History of Present Illness HPI narrative: 73 YEARS OLD WHITE FEMALE CAME TO THE ED FROM HOME BY PRIVATE CAR COMPLAINING OF PINK/BLOOD ON THE TOILET PAPER WHILE WIPING AFTER URINATING THIS MORNING. PATIENT DENIES ANY PAIN. PATIENT IS NOT SURE WHERE IT IS BLOOD COMING FROM. PATIENT IS NOT ON ANTI-PLATELET OR ANTICOAGULANT MEDICATION. SHE DENIES ANY FEVER, CHILLS, NAUSEA, VOMITING, ABDOMINAL PAIN, BACK PAIN, DIARRHEA, CONSTIPATION OR URINARY SYMPTOMS. Related Data Home Medications ?Medication ?Instructions ?Recorded ?Confirmed ?Last Taken ?Type amlodipine 10 mg tablet 10 mg PO DAILY 02/05/21 05/28/24 05/24/22 History fenofibrate 160 mg tablet 160 mg PO DAILY 02/05/21 05/28/24 05/24/22 History rosuvastatin 40 mg tablet 40 mg PO DAILY 02/05/21 05/28/24 05/24/22 History erythromycin 2 % topical solution 1 ml topical TID Itching 05/01/22 05/28/24 05/24/22 History ondansetron HCl 4 mg tablet 4 mg PO Q4H PRN Nausea 05/01/22 05/28/24 05/24/22 History pregabalin 150 mg capsule (Lyrica) 300 mg PO Q12H 05/01/22 05/28/24 05/24/22 History levothyroxine 100 mcg tablet 100 mcg PO DAILY 05/17/22 05/28/24 05/24/22 History oxycodone-acetaminophen 5 mg-325 1 tablet PO Q6H PRN Pain, Moderate 05/17/22 05/28/24 05/24/22 History mg tablet memantine 5 mg tablet 5 mg PO BID 09/06/23 05/28/24 Unknown History naproxen 375 mg tablet 375 mg PO Q72H PRN Pain, Mild 09/06/23 05/28/24 Unknown History triamcinolone acetonide 0.1 % 1 applic topical BID PRN if open 09/06/23 05/28/24 Unknown History topical ointment areas diphenhydramine HCl 25 mg capsule 25 mg PO Q6H PRN Itching 04/02/24 05/28/24 Unknown History (Allergy (diphenhydramine)) docusate sodium 100 mg capsule 100 mg PO BID 04/02/24 05/28/24 Unknown History (Colace) ergocalciferol (vitamin D2) 50,000 50,000 unit PO WEEKLY 04/02/24 05/28/24 Unknown History unit tablet glipizide 10 mg tablet, extended 10 mg PO DAILY 04/02/24 05/28/24 Unknown History release 24 hr hydrocortisone 2.5 % topical cream 1 applic topical BID 04/02/24 05/28/24 Unknown History multivitamin 1 tablet PO DAILY 04/02/24 05/28/24 Unknown History polyvinyl alcohol-povidone 1.4 1 drp ophthalmic (eye) QID PRN Dry 04/02/24 05/28/24 Unknown History %-0.6 % eye drops Eyes silver sulfadiazine 1 % topical 1 applic topical BID PRN blisters 04/02/24 05/28/24 Unknown History cream Allergies Allergy/AdvReac Type Severity Reaction Status Date / Time gemfibrozil Allergy Intermediate Rash Verified 06/24/24 07:10 hydrochlorothiazide Allergy Intermediate Rash Verified 06/24/24 07:10 irbesartan Allergy Intermediate Hives Verified 06/24/24 07:10 niacinamide Allergy Intermediate Rash Verified 06/24/24 07:10 amoxicillin (From Augmentin) AdvReac Intermediate Diarrhea Verified 06/24/24 07:10 clavulanic acid (From AdvReac Intermediate Diarrhea Verified 06/24/24 07:10 Augmentin) hydrocodone AdvReac Intermediate Dizziness Verified 06/24/24 07:10 lisinopril AdvReac Intermediate Dizziness Verified 06/24/24 07:10 Review of Systems 2 Review of Systems: All systems reviewed & are unremarkable except as noted in HPI and below PMFSH Past Medical History Medical History Hyperlipidemia Atrial fibrillation Iron deficiency anemia Hypothyroidism Breast cancer Small bowel obstruction Multiple small-bowel obstructions over the course of 20+ years. Essential hypertension Hypothyroidism Diabetes mellitus Shingles MGUS (monoclonal gammopathy of unknown significance) Bullous pemphigoid Surgical History Surgical History History of tubal ligation History of appendectomy Hx of cholecystectomy History of lumpectomy of right breast History of exploratory laparotomy (~2009) Due to small-bowel obstruction Family History Family History Mother , in her 90s Dementia Father , at age 72 Coronary artery disease Hx of CABG Social History Social History Social History: She lives in [place] with her of 44 years. They have 2 children. She is a former smoker but ?did not smoke that much?. She she does not drink alcohol. 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 Healthcare power of managing attorney: Years smoked: 47 Smoking status: Former smoker Second hand tobacco smoke exposure: Yes Alcohol intake: never Alcohol use details: occasional glass of wine Substance use: current Substance use type: marijuana Last use: t-2 Do You Feel Safe in your Home?: Yes Lack of Transportation: No Lack of Food: Never True Current Housing: I Have Housing Concerned About Future Housing: No Difficulty Paying Gas/Electric Bills: No Difficulty Paying for Meds: No Currently Unemployed: No Education: High School Diploma/GED Difficulty w/ Childcare or Family Care: No Living arrangements: with family Gender identity (if verbalized by the patient): Female Spiritual care concerns: No Exam 2 Narrative: GENERAL APPEARANCE: WELL-DEVELOPED, WELL-NOURISHED SKIN: NORMAL COLOR HEAD: NORMOCEPHALIC, NONTRAUMATIC EYES: CLEAR CONJUNCTIVA ENT: OROPHARYNX NORMAL, EARS NORMAL, NOSE NORMAL NECK: SUPPLE, NONTENDER CHEST AND RESPIRATORY: AIRWAY PATENT, NO RESPIRATORY DISTRESS, NO ACCESSORY MUSCLE USE HEART: REGULAR RATE/RHYTHM ABDOMEN: SOFT, NONTENDER, NO ORGANOMEGALY, QUIET BOWEL SOUNDS, RECTAL EXAM SHOWED MUCOUSY PINK DISCHARGE, NO STOOL IN THE RECTAL POUCH, GUAIAC POSITIVE PELVIC EXAM SHOWED TRACE OF BLOOD AT THE VAGINAL ENTRANCE BUT NO BLOOD IN THE VAGINAL POUCH OR THE CERVIX OR AROUND THE CERVIX VASCULAR: NORMAL PERIPHERAL PULSES, NORMAL CAPILLARY REFILL. MUSCULOSKELETAL: NORMAL RANGE OF MOTION, NONTENDER BACK NEUROLOGIC: ALERT AND ORIENTED ?3, OIL DRILLER IS NORMAL TESTED, NO GROSS MOTOR DEFICIT Course Vital Signs Vital signs: Vital Signs Temperature 36.5 C 06/24/24 07:09 Pulse Rate 87 06/24/24 07:09 Respiratory Rate 13 06/24/24 07:09 Blood Pressure 156/82 H 06/24/24 07:09 Pulse Oximetry 99 06/24/24 07:09 Temperature 36.5 C 06/24/24 07:09 Pulse Rate 94 06/24/24 09:00 Respiratory Rate 14 06/24/24 09:00 Blood Pressure 162/98 H 06/24/24 09:00 Pulse Oximetry 97 06/24/24 09:00 Medical Decision Making MDM Narrative Medical decision making narrative: PATIENT CAME TO THE ED BY PRIVATE CAR, RED BLOOD ON THE WIPES AFTER URINATING THIS MORNING. VITAL SIGNS ARE STABLE PHYSICAL EXAMINATION SHOWED TRACE OF BLOOD AT THE VAGINAL ENTRANCE BUT NO BLOOD INTRAVAGINALLY, PINK MUCOUS AT THE RECTAL EXAM , GUAIAC POSITIVE DIFFERENTIAL DIAGNOSIS GI BLEED, URINARY TRACT INFECTION, ANEMIA BLOOD WORKUP TODAY INCLUDES CBC, CMP, PT PTT SHOWED POTASSIUM 3.1 ALKALINE PHOSPHATASE 156 OTHERWISE NO SIGNIFICANT ABNORMALITIES URINALYSIS SHOWED 2+ BLOOD, 2+ LEUKOCYTE ESTRACE, WBC MORE THAN 100, CONSISTENT WITH URINARY TRACT INFECTION. PATIENT BLOOD ON THE WIPES AFTER WIPING AFTER URINATING IS HIGH LIKELY SECONDARY TO URINARY TRACT INFECTION. THE BLOOD IN THE RECTAL EXAM COULD BE LEAKING OUT OF THE URETHRA. PATIENT H AND H IS OKAY WILL BE DISCHARGED ON CIPRO TO FOLLOW UP WITH FAMILY PHYSICIAN IN 5 DAYS FOR URINALYSIS AND BLOOD TEST TO MAKE SURE HER HEMOGLOBIN IS WITHIN NORMAL LIMIT. THE PT WAS DISCHARGED TO HOME.THE PT,S CONDITION UPON DISCHARGE WAS FAIR,EDUCATION WAS PROVIDED TO THE PT IN REFERENCE TO THE FINAL IMPRESSION,DISCHARGE STUDY RESULTS,TREATMENT,PROGNOSIS AND NEED FOR FOLLOW UP . Differential Diagnosis Differential Diagnosis: URINARY TRACT INFECTION, GI BLEED, VAGINAL BLEED Vital Signs Vital Signs: Vital Signs Temperature 36.5 C 06/24/24 07:09 Pulse Rate 87 06/24/24 07:09 Respiratory Rate 13 06/24/24 07:09 Blood Pressure 156/82 H 06/24/24 07:09 Pulse Oximetry 99 06/24/24 07:09 Temperature 36.5 C 06/24/24 07:09 Pulse Rate 94 06/24/24 09:00 Respiratory Rate 14 06/24/24 09:00 Blood Pressure 162/98 H 06/24/24 09:00 Pulse Oximetry 97 06/24/24 09:00 Lab Data 06/24/24 07:23 06/24/24 07:23 Labs: Lab Results 06/24/24 06/24/24 Range/Units 07:23 08:20 WBC 8.0 (4.5-10.0) K/mm3 RBC 4.43 (4.2-5.4) M/mm3 Hgb 13.0 (12.0-15.0) g/dL Hct 41.6 (37.0-47.0) % MCV 93.9 (80-100) fl MCH 29.3 (26-34) pg MCHC 31.3 L (32-36) g/dl RDW 17.0 H (11.5-14.5) % Plt Count 262 (150-375) k/mm3 MPV 11.4 H (7.4-10.4) fl Immature Gran % (Auto) 0.4 (0-0.5) % Neut % (Auto) 43.8 L (45.5-73.1) % Lymph % (Auto) 38.9 (18.3-44.2) % [place] % (Auto) 6.5 (2.6-8.5) % Eos % (Auto) 9.5 H (0-4.4) % Baso % (Auto) 0.9 (0.2-1.2) % Lymph # (Auto) 3.11 (0.9-3.2) K/mm3 [place] # (Auto) 0.5 (0.1-0.6) K/mm3 Eos # (Auto) 0.8 H (0-0.3) K/mm3 Baso # (Auto) 0.1 (0.0-0.1) K/mm3 Abs Immat Gran (auto) 0.03 (0.00-0.031) K/mm3 Absolute Neuts (auto) 3.5 (1.3-6.7) K/mm3 Absolute Nucleated RBC 0.000 (0.0-0.012) K/mm3 Nucleated RBC % 0.0 (0.0-0.2) % PT 14.2 (11.1-14.7) Seconds INR 1.0 APTT 28.1 (22.3-36.8) Seconds Sodium 140 (137-145) mmol/L Potassium 3.1 L (3.4-5.0) mmol/L Chloride 104 (98-107) mmol/L Carbon Dioxide 26 (22-30) mmol/L Anion Gap 10 (4-12) mmol/L BUN 21 H D (7-17) mg/dL Creatinine 0.87 (0.7-1.0) mg/dL Estim Creat Clear Calc Not Reportable Estimated GFR > 60 (59 - ) Glucose 99 (65-110) mg/dL Calcium 8.9 (8.4-10.2) mg/dL Total Bilirubin 0.9 (0.2-1.3) mg/dL AST 37 H (14-36) U/L ALT 23 (6-35) U/L Alkaline Phosphatase 156 H (38-126) U/L Total Protein 7.0 (6.3-8.2) g/dL Albumin 4.0 (3.5-5.1) g/dL Urine Color Yellow (Yellow) Urine Appearance Cloudy H (Clear) Urine pH 6.0 (5.0-9.0) Ur Specific [place] 1.013 (1.001-1.035) Urine Protein 1+ H (Negative) mg/dL Urine Glucose (UA) Negative (Negative) mg/dL Urine Ketones Negative (Negative) mg/dL Ur Blood (Man) 2+ H (Negative) Urine Nitrate Negative (Negative) Urine Bilirubin Negative (Negative) Urine Urobilinogen 1.0 (<2.0) mg/dL Add Ur Microanalysis Reviewed Leukocyte Esterase Rfl 2+ H (Negative) FREDY/UL Urine RBC 11-20 H (0-2) /hpf Urine WBC >100 H (0-3) /hpf Urine WBC Clumps Present H (None) /HPF Ur Squamous Epith Cells None seen (Few) /hpf Urine Bacteria 4+ /hpf Urine Casts 0-2 Discharge Plan Discharge Clinical Impression: Hypokalemia, Urinary tract infection Patient Disposition: Home, Self-Care Condition: Stable Instructions: Antibiotic Form, Urinary Tract Infection in Women (DC), Hypokalemia (ED) Additional Instructions: RETURN IF SYMPTOMS ARE WORSENING , CALL YOUR FAMILY PHYSICIAN FOR APPOINTMENT, TAKE TYLENOL, IBUPROFEN NEEDED FOR ACHES AND PAIN, CONTINUE HOME MEDICATIONS. Patient Language: Korean Prescriptions: New ciprofloxacin HCl [Cipro] 500 mg tablet 500 mg PO Q12H Qty: 14 0RF potassium chloride 20 mEq tablet extended release 20 meq PO BID Qty: 10 0RF No Action erythromycin 2 % solution 1 ml topical TID Rx Instructions: To left eye ondansetron HCl 4 mg tablet 4 mg PO Q4H PRN (Reason: Nausea) pregabalin [Lyrica] 150 mg capsule 300 mg PO Q12H levothyroxine 100 mcg Tablet 100 mcg PO DAILY oxycodone-acetaminophen 5-325 mg Tablet 1 tablet PO Q6H PRN (Reason: Pain, Moderate) naproxen 375 mg tablet 375 mg PO Q72H PRN (Reason: Pain, Mild) Rx Instructions: med on hold triamcinolone acetonide 0.1 % ointment 1 applic TOPICAL BID PRN (Reason: if open areas) Rx Instructions: to open areas memantine 5 mg tablet 5 mg PO BID amlodipine 10 mg tablet 10 mg PO DAILY rosuvastatin 40 mg tablet 40 mg PO DAILY fenofibrate 160 mg tablet 160 mg PO DAILY multivitamin Tablet 1 tablet PO DAILY silver sulfadiazine 1 % Cream 1 applic TOPICAL BID PRN (Reason: blisters) Rx Instructions: apply a 1.5 mm thickness to blisters glipizide 10 mg tablet extended release 24hr 10 mg PO DAILY polyvinyl alcohol-povidone 1.4-0.6 % Drops 1 drp OPHTHALMIC (EYE) QID PRN (Reason: Dry Eyes) ergocalciferol (vitamin D2) 50,000 unit Tablet 50,000 unit PO WEEKLY Rx Instructions: takes on Fridays diphenhydramine HCl [Allergy (diphenhydramine)] 25 mg Capsule 25 mg PO Q6H PRN (Reason: Itching) docusate sodium [Colace] 100 mg Capsule 100 mg PO BID Rx Instructions: med on hold hydrocortisone 2.5 % Cream 1 applic TOPICAL BID Rx Instructions: left ear pantoprazole 40 mg Tablet,Delayed Release (Dr/Ec) 40 mg PO Q12HR Qty: 30 0RF promethazine 25 mg Tablet 25 mg PO Q4H PRN (Reason: Nausea And Vomiting) Qty: 10 0RF Follow-up/Referrals: Pierre,DO Akhil [Primary Care Provider] -
[2024-06-24 07:36] LABS: Basophils Absolute Auto 0.1 K/mm3 (0.0-0.1); Basophils Percent Auto 0.9 % (0.2-1.2); Eosinophils Absolute Auto 0.8 K/mm3 (0-0.3); Eosinophils Percent Auto 9.5 % (0-4.4); Hematocrit 41.6 % (37.0-47.0); Immature Granulocyte Absolute 0.03 K/mm3 (0.00-0.031); Immature Granulocyte Percent A 0.4 % (0-0.5); Lymphocytes Absolute Auto 3.11 K/mm3 (0.9-3.2); Lymphocytes Percent Auto 38.9 % (18.3-44.2); Mean Corpuscular HGB Conc 31.3 g/dl (32-36); Mean Corpuscular Hemoglobin 29.3 pg (26-34); Mean Corpuscular Volume 93.9 fl (80-100); Mean Platelet Volume 11.4 fl (7.4-10.4); Monocytes Absolute Auto 0.5 K/mm3 (0.1-0.6); Monocytes Percent Auto 6.5 % (2.6-8.5); Neutrophils Absolute Auto 3.5 K/mm3 (1.3-6.7); Neutrophils Percent Auto 43.8 % (45.5-73.1); Platelet Count Result 262 k/mm3 (150-375); Red Blood Count 4.43 M/mm3 (4.2-5.4)
[2024-06-24 07:43] LABS: Sodium 140 mmol/L (137-145)
[2024-06-24 07:44] LABS: Prothrombin Time 14.2 Seconds (11.1-14.7)
[2024-06-24 07:46] LABS: Partial Thromboplastin Time 28.1 Seconds (22.3-36.8)
[2024-06-24 07:49] LABS: Alanine Aminotransferase 23 U/L (6-35); Alkaline Phosphatase 156 U/L (38-126); Anion Gap 10 mmol/L (4-12); Aspartate Amino Transferase 37 U/L (14-36); Bilirubin,Total 0.9 mg/dL (0.2-1.3); Blood Urea Nitrogen 21 mg/dL (7-17); Calcium 8.9 mg/dL (8.4-10.2); Carbon Dioxide 26 mmol/L (22-30); Chloride 104 mmol/L (98-107); Estimated Glomerular Filt Rate > 60; Glucose 99 mg/dL (65-110); Potassium 3.1 mmol/L (3.4-5.0)
[2024-06-24 07:54] VITALS: BP 154/93; PULSE 90; RESP 16; O2SAT 97
[2024-06-24] MEDS: POTASSIUM CHLORIDE 20 MEQ ER TABLET 40 MEQ PO (08:58)
[2024-06-24 09:00] VITALS: BP 162/98; PULSE 94; RESP 14; O2SAT 97
[2024-06-24 09:02] LABS: Add Urine Microscopic? YES; Appearance Urine Cloudy (Clear); Bacteria Urine 4+ /hpf; Bilirubin Urine Negative (Negative); Blood Urine 2+ (Negative); Color Urine Yellow (Yellow); Glucose Urine UA Negative (Negative); Ketones Urine Negative (Negative); Leukocyte Esterase Ur 2+ LEU/UL (Negative); Need Manual Microscopic Reviewed; Nitrate Urine Negative (Negative); Non Pathogenic Casts 0-2; Protein Urine 1+ mg/dL (Negative); Specific Grav Ur 1.013 (1.001-1.035); Squamous Epithelial Cell Urine None Seen /hpf (Few); WBC Clumps Urine Present /HPF; WBC Urine >100 /hpf (0-3)
[2024-06-24] MEDS: CIPROFLOXACIN 500 MG TAB PO (09:53)
[2024-06-24 09:59] VITALS: BP 160/89; PULSE 85; RESP 18; TEMP 36.4; O2SAT 97
== END 2024-06-24 10:07 | disposition home or self-care (01) ==
PROVIDERS: Emergency Provider Emergency Medicine; PCP Student in an Organized Health Care Education/Training Program
DX: E87.6 Hypokalemia (principal); N39.0 Urinary tract infection, site not specified; E78.5 Hyperlipidemia, unspecified; I48.91 Unspecified atrial fibrillation; D64.9 Anemia, unspecified; E03.9 Hypothyroidism, unspecified; Z85.3 Personal history of malignant neoplasm of breast; I10 Essential (primary) hypertension; E11.9 Type 2 diabetes mellitus without complications
CPT/HCPCS: 36415; 80053; 81001; 85025; 85610; 85730; 87086; 87186; 99283; A9270

== ENCOUNTER 2024-07-05 11:12 | Inpatient (IN) | payer MEDICARE, SELFPAY ==
[2024-07-05] VITALS (26 sets, daily range): BP systolic 79–131; BP diastolic 42–60; PULSE 10–140; RESP 18–24; TEMP 38.2–39.1; O2SAT 92–100; BMI 20.9
--- NOTE | ~2024-07-05 | XR_ITS ---
XR chest 1V portable 07/09/2024 05:46 Indication: Respiratory failure Procedure: AP portable chest Comparison: Comparison to multiple prior studies sequentially, with oldest reviewed study dated 07/06 Findings: Heart size normal. Right subclavian central line tip in the right atrium. Improved pulmonar y edema. No significant effusion. No pneumothorax. There is opacification of the upper thorax with cu rvilinear edge, likely external to the patient. Possible small effusion. Impression: 1: Interval improvement of bilateral airspace disease, consistent with resolving edema. Reviewed, dictated and finalized at location A. CATED INTERMODAL TRUCK DRIVER Impression: 1: Interval improvement of bilateral airspace disease, consistent with resolvin g edema.
--- NOTE | ~2024-07-05 | CT_ITS ---
Clinical Indication: Pneumonia, abdominal pain CT Scan of the Chest, Abdomen, and Pelvis without Contrast: Technique: Contiguous sections were acquired throughout the chest, abdomen, and pelvis without IV con trast administration. Dose reduction technique was used on this scan by utilizing automated exposure control and iterative reconstruction technique. The dose-length product (DLP) was 525.87 mGy-cm. Comparison: 07/05/2024 Findings: There is no evidence of any significant mediastinal, hilar or axillary lymphadenopathy. Extensive cor onary artery calcifications are present. No pericardial effusion. Minimal pleural effusions are present bilaterally there is mild dependent bibasilar atelectasis. Ther e is extensive, patchy, predominantly groundglass consolidation throughout both lungs, new from prior exam. The lungs are clear. No pulmonary nodules or infiltrates are noted. The liver, spleen, pancreas, adrenals and kidneys are within normal limits. Gallbladder absent. There are extensive atherosclerotic calcifications of the aorta and iliac vessels. No lymphadenopathy. No bowel obstruction or bowel wall thickening. Small bowel anastomoses are again present. Jones catheter present within the urinary bladder. No adnexal mass evident. No ascites. Impression: Patchy, extensive, predominantly groundglass consolidation throughout both lungs is new from prior ex am. This could reflect interval development of extensive pulmonary edema versus multifocal pneumonia. Correlate clinically. Minimal pleural effusions with bibasilar atelectatic change. No acute abnormality in the abdomen or pelvis. No small bowel obstruction. Reviewed, dictated and finalized at [facility]. BULK DRIVER
--- NOTE | ~2024-07-05 | CT_ITS ---
CT ANGIOGRAM NECK AND HEAD History: CVA. Technique: Serial spiral axial images through the head and neck were obtained during arterial phase I V injection of 100 cc of Omnipaque 350. 3-D postprocessing and MIP images were then reconstructed on the remote workstation. Dose reduction technique was used on this scan by utilizing automated exposur e control and iterative reconstruction technique. The dose-length product (DLP) was 984.91 mGy-cm. CTA neck findings: Bilateral vertebral are patent. There are focal areas of moderate to high-grade s tenosis of the distal vertebral arteries bilaterally related to atherosclerotic plaque. Bilateral com mon carotid arteries are patent. Calcified plaque at the origin of the renal protocol 10 high-grade, 95% stenosis. Probable focal occlusion at the origin of the right external carotid artery with near i mmediate reconstitution. There is extensive calcified plaque at the origin/proximal left internal car otid artery, with high-grade, probable 95% stenosis. Left external carotid artery appears to be paten t. The proximal right internal carotid artery demonstrates 95% stenosis relative to the normal distal artery lumen diameter. The proximal left internal carotid artery demonstrates 95% stenosis relative to the normal distal artery lumen diameter. There is extensive groundglass consolidation throughout the visualized lungs. CTA head findings: Distal vertebral arteries, basilar artery, and posterior cerebral arteries are pat ent. Distal internal carotid arteries, middle cerebral arteries, and anterior cerebral arteries are p atent. No large vessel occlusion. No significant stenosis or aneurysm. Impression: High-grade, 95% stenoses at the proximal internal carotid arteries bilaterally. Probable focal occlusion at the origin of the right external carotid artery with near immediate recon stitution. Reviewed, dictated and finalized at location M. TIC CENTRE MANAGER Impression: High-grade, 95% stenoses at the proximal internal carotid arteries bilaterally. Probable focal occlusion at the origin of the right external carotid artery wit h near immediate reconstitution.
--- NOTE | ~2024-07-05 | XR_ITS ---
XR chest 1V portable 07/10/2024 05:34 Indication: Respiratory failure. Procedure: AP portable chest Comparison: Comparison to multiple prior studies sequentially, with oldest reviewed study dated 07/06. Findings: Progression of interstitial edema. Central line tip in the right atrium. NG tube tip in the stomach. No pleural effusion or pneumothorax. No acute osseous abnormality. Impression: 1: Interval progression of interstitial edema. Reviewed, dictated and finalized at location A. LIANDEER LOOPER Impression: 1: Interval progression of interstitial edema.
--- NOTE | ~2024-07-05 | XR_ITS ---
EXAM: XR abdomen gastric tube insert DATE: 07/06/2024 18:43 HISTORY: NG tube placement. . COMPARISON: 07/05/2024. FINDINGS: Diffuse reticular opacities and segmental left basilar airspace disease. NG tube, tip and side port over the gastric body. Multiple tubes and wires overlie the abdomen. Degenerative changes i n the spine. IMPRESSION: Interstitial edema. Segmental left basilar atelectasis/consolidation. NG tube in good pos ition. Reviewed, dictated and finalized at location K. HOUSE PRODUCTION WORKER IMPRESSION: Interstitial edema. Segmental left basilar atelectasis/consolidatio n. NG tube in good position.
--- NOTE | ~2024-07-05 | XR_ITS ---
EXAMINATION: XR chest ET placement, XR abdomen gastric tube insert DATE: 07/05/2024 11:49 INDICATION: Endotracheal tube and nasogastric tube placements TECHNIQUE: 1. Supine AP view of the chest was obtained. 2. Supine AP view of the abdomen and pelvis was obtained. COMPARISON: Chest radiograph dated 04/18/2024 FINDINGS: CHEST: Endotracheal tube tip 4.6 cm above the connie. Mild opacities in the left mid to lower lung zone whi ch could represent atelectasis or pneumonia. No pulmonary edema, pleural effusion or pneumothorax. He art size is normal. ABDOMEN: Nasogastric tube tip in proximal side port in the body the stomach. There multiple gas-filled loops o f large and small bowel in a nonspecific, nonobstructive bowel gas pattern. IMPRESSION: 1. Endotracheal tube and nasogastric tube in expected positions. 2. Mild opacities in the left mid to lower lung zone which could represent atelectasis or pneumonia. 2. Nonspecific bowel gas pattern without frankly dilated bowel to suggest obstruction. Reviewed, dictated and finalized at location A. CTOR OF CORPORATE STRATEGY IMPRESSION: 1. Endotracheal tube and nasogastric tube in expected positions. 2. Mild opacities in the left mid to lower lung zone which could represent atel ectasis or pneumonia. 2. Nonspecific bowel gas pattern without frankly dilated bowel to suggest obstr uction.
--- NOTE | ~2024-07-05 | XR_ITS ---
Portable chest x-ray Comparison: 07/07/2024 Clinical History: Respiratory failure Findings: NG tube and right-sided subclavian line are unchanged. There is worsening moderate pulmona ry edema pattern and central congestive change. Cardiomediastinal silhouette is stable. Bones and so ft tissues are unremarkable. Impression: Worsening moderate pulmonary edema pattern. Support tubes are unchanged. Right subclavian line tip is in the inferior right atrium. Reviewed, dictated and finalized at location M. OR TACKER Impression: Worsening moderate pulmonary edema pattern. Support tubes are unchanged. Right subclavian line tip is in the inferior right atrium.
--- NOTE | ~2024-07-05 | XR_ITS ---
Upright portable views of the abdomen Clinical history: NG tube placement COMPARISON: 07/07/2024 Findings: NG tube are in satisfactory position. Right-sided central line noted, tip in the right atri um or possibly just in the IVC. Bowel gas pattern is nonspecific. No evidence for obstruction or free air. No abnormal mass lesion or calcification is seen. Osseous structures are intact. Impression: NG tube remains in satisfactory position. Right-sided central venous line tip is in the right atrium or possibly just in the IVC. Consider retr action. Reviewed, dictated and finalized at location M. ONCOLOGY RESEARCH Impression: NG tube remains in satisfactory position. Right-sided central venous line tip is in the right atrium or possibly just in the IVC. Consider retraction.
--- NOTE | ~2024-07-05 | XR_ITS ---
Portable chest x-ray Comparison: 07/06/2024 Clinical History: Respiratory failure Findings: NG tube in satisfactory addition. Right subclavian line present, tip in the right atrium. There is mild haziness in the perihilar regions and left lung base. Cardiomediastinal silhouette is stable. Bones and soft tissues are unremarkable. Impression: Hazy airspace disease perihilar regions and left lung base. Correlate for pulmonary edema, or possibl y pneumonia. Possible underlying COPD. Support tubes, as above. Consider retraction of right subclavian line. Reviewed, dictated and finalized at location . ET COATER Impression: Hazy airspace disease perihilar regions and left lung base. Correlate for pulmo nary edema, or possibly pneumonia. Possible underlying COPD. Support tubes, as above. Consider retraction of right subclavian line.
--- NOTE | ~2024-07-05 | XR_ITS ---
CHEST RADIOGRAPH CLINICAL HISTORY: S/p R Subclavian central line . COMPARISON: 07/05/2024 at 11:30 AM TECHNIQUE: Single portable view of the chest. FINDINGS Right subclavian central venous catheter identified with tip projecting over the deep right atrium. Endotracheal tube is identified with its tip projecting approximately 5 cm above the base of the david na. Nasogastric tube identified with its tip extending below the left hemidiaphragm, presumably within th e stomach. The remainder of the cardiomediastinal silhouette is otherwise unremarkable. Blunting of the left costophrenic sulcus suggesting a small left-sided pleural effusion. The remainder of the lungs are clear. IMPRESSION: Small left-sided pleural effusion. Supportive lines and tubes in position, as detailed above. Reviewed, dictated and finalized at location A. S INSPECTOR
--- NOTE | ~2024-07-05 | CT_ITS ---
Non-contrast Head CT History: Neurologic change, CVA COMPARISON: 07/05/2024 Technique: Axial non-contrast imaging of the brain was performed. Dose reduction technique was used on this scan by utilizing automated exposure control and iterative reconstruction technique. The dose -length product (DLP) was 681.00 mGy-cm. Findings: There is no evidence of intracranial hemorrhage, mass lesion, or acute infarct. Brain par enchyma appears normal. The ventricles and subarachnoid spaces are normal in size. The calvarium ap pears normal. The visualized paranasal sinuses and mastoid air cells are clear. Impression: No significant abnormality seen. Case discussed with GINI العلي at 6:38 AM on 07/07/2024. Reviewed, dictated and finalized at [facility]. EX TRIMMER Impression: No significant abnormality seen. Case discussed with GINI العلي at 6:38 AM on 07/07/2024.
--- NOTE | ~2024-07-05 | CT_ITS ---
EXAMINATION: CT brain wo con DATE: 07/05/2024 12:58 INDICATION: Altered mental status. Septic. TECHNIQUE: Computed tomography (CT) of the head was performed without intravenous contrast. Sagittal and coronal reconstructions were performed. The mA was adjusted according to patient size. Iterative reconstruction technique was employed. The dose-length product was 605.33 mGy-cm. COMPARISON: head CT dated 09/06/23 FINDINGS: No acute intracranial hemorrhage, acute infarction or abnormal extra axial fluid collection. There is mild scattered white matter hypoattenuation consistent with chronic small vessel ischemic disease. S ymmetric prominence of the sulci consistent with mild age-appropriate diffuse cerebral volume loss. V entricles are normal and symmetric. No mass/mass effect. Changes of bilateral intraocular lens replac ement. The orbits, paranasal sinuses and mastoid air cells are normal. Partially visualized likely en dotracheal tube in the oral cavity. IMPRESSION: 1. Normal aging brain. No acute intracranial process. Reviewed, dictated and finalized at location A. IN COIL WINDER
--- NOTE | ~2024-07-05 | CT_ITS ---
EXAMINATION: CT chest abdomen pelvis w con DATE: 07/05/2024 12:58 INDICATION: Sepsis TECHNIQUE: Computed tomography (CT) of the chest, abdomen, and pelvis was performed with 100 mL Omnip aque-350 intravenous contrast. Automated exposure control and iterative reconstruction technique were employed. The dose-length product was 446.01 mGy-cm. COMPARISON: None FINDINGS: CHEST CT: Endotracheal tube tip 4.5 cm above the connie. Distal tip in proximal side port of the nasogastric tu be within the body the stomach. Consolidation without proportional volume loss in the bilateral lower lobes consistent with pneumonia. Additional mild groundglass opacities consistent with additional pn eumonia in the lingula along with linear band of discoid atelectasis. No pulmonary edema or pleural e ffusion. Heart size is normal. Atherosclerotic coronary artery calcification. No pericardial effusion . Thoracic aorta is normal in caliber with no dissection. Mild to moderate thoracic spondylosis. ABDOMEN/PELVIS CT: The gallbladder is nonvisualized and likely surgically absent. The liver, spleen, pancreas or 2020, b ilateral adrenal glands and left kidney are normal. 5 cm extremity cyst at the lower pole the right k idney with additional subcentimeter right renal cyst. Latter. Uterus and bilateral adnexa are unremar kable. There is moderate amount of stool in the distal colon. There are few scattered small diverticu la without adjacent from trace stranding to suggest diverticulitis. There are couple small bowel anas tomotic suture lines in the lower abdomen and upper pelvis. No bowel obstruction. No free intraperito radha gas or fluid. No pathologically enlarged abdominal or pelvic lymphadenopathy. 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 IMPRESSION: 1. Bilateral lower lobe pneumonia with additional small amount of pneumonia in the lingula. 2. No acute intra-abdominal/pelvic process. Reviewed, dictated and finalized at location A. URCING ADVISOR
--- NOTE | ~2024-07-05 | XR_ITS ---
Portable chest x-ray Comparison: 07/05/2024 Clinical History: Intubation Findings: Endotracheal tube, NG tube are in satisfactory positions. There is discoid bibasilar atele ctasis and possible minimal central congestive change. Cardiomediastinal silhouette is stable. Bones and soft tissues are unremarkable. Impression: Support tubes, as above. Bibasilar atelectasis and possible minimal central congestive change, as above. Reviewed, dictated and finalized at location M. STRIAL TRUCK MECHANIC Impression: Support tubes, as above. Bibasilar atelectasis and possible minimal central congestive change, as above.
--- NOTE | ~2024-07-05 | XR_ITS ---
Upright portable views of the abdomen Clinical history: NG tube placement COMPARISON: 07/06/2024 Findings: NG tube in satisfactory position. Bowel gas pattern is nonspecific. No evidence for obstruc tion or free air. No abnormal mass lesion or calcification is seen. Osseous structures are intact. Impression: NG tube in satisfactory position. Reviewed, dictated and finalized at [facility]. N UP HELPER BANQUET Impression: NG tube in satisfactory position.
--- NOTE | 2024-07-05 11:14 | ECG_ITS ---
Test Date: 2024-07-05 13:48:01 Measurements Intervals [place] Rate: 117 P: 27 AR: 145 QRS: -20 QRSD: 80 T: 53 QT: 437 QTc: 611 Interpretive Statements SINUS TACHYCARDIA WITH OCCASIONAL SUPRAVENTRICULAR PREMATURE COMPLEXES NONSPECIFIC T-WAVE ABNORMALITY old inferior mi Electronically Signed On 07-05-2024 14:18:22 [employer] by Eagle Linares M.D.
--- OUTSIDE RECORDS SUMMARY | 2024-07-05 11:19 | XMS_ITS | Clinical Summary ---
Author Organization [facility] [place] [address] [facility] Address [address] [place] [address] Care Team Providers Care Spline Rolling Machine Job Setter Name Role Phone Sada Woodard DO Unavailable [phone] Akhil Jay DO Primary Care Provide r Redd Leary MD Unavailable [phone] Donna Mayberry FITTING ROOM INSPECTOR Unavailable [phone] Irina Hazel MD Unavailable Josefa Alvarado MD Unavailable [phone] Allergies Active Allergy Reactions Criticality Noted Date Comments Amoxicillin Diarrhea High 09/06/2023 Doxycycline Hives Medium 07/01/2019 Gemfibrozil Rash Medium 10/07/2018 Hydrochlorothiazide Rash Medium 10/07/2018 itching Hydrocodone Rash Medium 10/07/2018 Itching, and dizziness Irbesartan Hives Medium 07/01/2019 Lisinopril Dizziness Low 10/07/2018 Niacinamide Rash Medium 12/19/2019 Medications fenofibrate (TRIGLIDE) 160 mg tablet Take 1 tablet (160 mg total) by mouth daily 9 Active rosuvastatin (CRESTOR) 40 mg tablet Take 1 tablet (40 mg total) by mouth daily Active amLODIPine (NORVASC) 10 mg tablet Take 1 tablet (10 mg total) by mouth daily 2 Active polyvinyl alcohol-povidone (REFRESH CLASSIC) 1.4-0.6 % dropperette Administer 1 drop into both eyes 4 (four) times a day as needed for dry eyes Active levothyroxine (SYNTHROID) 100 mcg tablet Take 1 tablet (100 mcg total) by mouth laundry tub maker before breakfast Active naproxen (NAPROSYN) 375 mg tablet Can take one tablet every 3 days as needed for pain 3 Active oxyCODONE-acetamin ophen (PERCOCET) 5-325 mg per tablet Take by mouth every 6 (six) hours as needed for pain 3 Active pregabalin (LYRICA) 100 mg capsule Take 3 capsules (300 mg total) by mouth nightly 300mg in am and 300 pm Active triamcinolone (KENALOG) 0.1 % ointmentIndication s:Bullous pemphigoid Twice daily to affected areas as needed. 454 g 11 3 Active ondansetron ODT (ZOFRAN-ODT) 4 mg disintegrating tablet DISSOLVE 1 TABLET IN MOUTH EVERY 4 HOURS NEEDED FOR NAUSEA AND VOMITING 3 Active anastrozole (ARIMIDEX) 1 mg tablet Take 1 tablet by mouth once daily 90 tablet 2 3 Active erythromycin (ILOTYCIN) ophthalmic ointment APPLY OINTMENT INTO LEFT EYE THREE TIMES DAILY 4 Active docusate sodium (COLACE) 100 mg capsuleIndications :constipation Take 1 capsule (100 mg total) by mouth 2 (two) times a day Active cannabidiol, CBD, (medical cannabis) each 1 Dose as needed Active memantine (NAMENDA) 5 mg tabletIndications: Moderate to Severe Alzheimer's Type Dementia Take 1 tablet (5 mg total) by mouth 2 (two) times a day 60 tablet 11 4 025 Active diphenhydrAMINE 25 mg capsule Take 1 tablet/capsule (25 mg total) by mouth every 6 (six) hours as needed for itching Active multivitamin tabletIndications: Vitamin Deficiency Prevention Take 1 tablet by mouth Active ergocalciferol (VITAMIN D) 50,000 unit capsuleIndications :Osteoporosis,Roma min D Deficiency,bone mineral disease Take 1 capsule (50,000 Units total) by mouth once a week 12 capsule 3 4 025 Active hydrocortisone 2.5 % ointment APPLY TO EAR TWICE A DAY 4 Active silver sulfadiazine (SILVADENE, SSD) 1 % cream Apply topically 2 (two) times a day 4 Active glipiZIDE (GLUCOTROL) 10 mg tabletIndications: type 2 diabetes mellitus Take 1 tablet (10 mg total) by mouth daily Active Active Problems Patient Care Coordination No te Formatting of this note migh t be different from the original. Problem Noted Date Diagnosed Date Post herpetic neuralgia 08/10/2023 Sepsis with acute organ dysf unction, due to unspecified organism, unspecified type, unspecified whether septic shock present 09/07/2022 Subjective fever 07/18/2022 ESBL E. coli carrier 07/18/2022 Hyperglycemia due to type 2 diabetes mellitus (C MS/HCC) 07/18/2022 Trichiasis of left upper eyelid 06/27/2022 Assessment & Plan (06/27/2022 10:29 AM STEAM ROOM ATTENDANT): Epilated multiple lashes at slit lamp. Neutropenia 03/23/2022 Generalized weakness 02/22/2022 JOANNE (acute kidney injury) 02/22/2022 Pseudophakia of both eyes 01/26/2022 Assessment & Plan (01/26/2022 1:52 PM CDT): SRx given Intermediate stage nonexudat juli age-related macular degeneration of both eyes 11/28/2021 Assessment & Plan (06/29/2023 8:41 AM STEAM ROOM ATTENDANT): Doing well with AREDS2 vitamins. Stable. Assessment & Plan (01/09/2022 1:59 PM CDT): Doing well with AREDS2 vitamins. Stable. Assessment & Plan (11/28/2021 2:53 PM CDT): She has few large drusen OU. Discussed AREDS2 vitmains and that they may slow down the progression of macular degeneration. She does not smoke. Will get OCT in future for baseline. Anterior scleritis of eye, left 10/19/2021 Overview (01/09/2022): Diagnosis: Scleritis left eye Complications: None Last active: 10/19/21 Systemic associations: None Labs: Positive: UA Negative/normal: None Care Team: Other notes: Assessment & Plan (06/23/2022 1:26 PM STEAM ROOM ATTENDANT): She has no active scleritis today. Continue to observe off therapy. Follows with [facility]. Assessment & Plan (01/09/2022 1:58 PM CDT): She has no active scleritis today. Continue to observe off therapy, I am happy to see her back at any time as needed. Assessment & Plan (11/28/2021 2:51 PM CDT): She has no active inflammation today. Ok to stay off naproxen. If inflammation recurs would obtain ANCA and CXR. Would be worth considering biopsy if lesion is active in the future to look for acyclovir resistance, or try famvir as an alternate therapy. I will see her back in 6 weeks to ensure she remains quiet off naproxen. Assessment & Plan (10/19/2021 2:21 PM CDT): Deep injection superior OS with severe pain x 2 days. No signs of anterior/posterior uveitis seen today. No ONH edema or CME. 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 This appears stable today. No improvement in pain after instillation of topical anesthetic in office today. PMhx: bullous pemphigoid, MGUS. Previously on oral prednisone however reports she has not taken in months. Rx naproxen 500mg BID. Pt already taking PPI. Encouraged pt to discuss skin pain with customer leader and/or PCP. Recommended pt go to ER with worsening of pain or vision changes. Pt scheduled to see Dr. Montilla on Sunday10/24/2021. Neurotrophic keratitis of left eye 09/09/2021 Assessment & Plan (06/29/2023 8:41 AM STEAM ROOM ATTENDANT): Extensive history of HZO OS, bullous pemphigoid, post herpetic neuralgia and neurotrophic keratitis OS. No epi defect, today with 1+ PEE and faint paracentral scar with mild stromal thinning. Continue PFATs and AT suzette qhs OU. Srx given today for polycarbs. Assessment & Plan (12/26/2022 1:51 PM CDT): Extensive history of HZO OS, bullous pemphigoid, post herpetic neuralgia and neurotrophic keratitis OS. No epi defect, still with 3+ diffuse PEE and faint paracentral scar with mild stromal thinning. D/c erythromycin and transition to PFATs at least qid and AT suzette qhs OU. Can update refraction at next visit if desired. Assessment & Plan (11/24/2022 11:34 AM CDT): Extensive history of HZO OS, bullous pemphigoid, post herpetic neuralgia and neurotrophic keratitis OS. Patient cannot tolerate taping 2/2 pemphioid, tried using press n seal and it would not reliably stay in place. Epi defect healed today, will d/c moxi and continue erythromycin suzette bid OS. Assessment & Plan (11/13/2022 8:25 AM CDT): Extensive history of HZO OS, bullous pemphigoid, post herpetic neuralgia and neurotrophic keratitis OS, presenting 2 days ago with reduced vision OS. Exam today with slightly improved inferior epi defect OS. She has sloughed off skin from taping and can no longer continue this. Patient tried using press n seal and it would not reliably stay in place. Today with healing epi defect with D folds but no infiltrate. Okay to continue moxi tid OS and erythromycin suzette tid OS a few minutes after moxi. Discussed that if her epi defect doesn't continue to heal we may need to consider tarsorrhaphy- she is not interested in this at this time. Return in 2 weeks or sooner prn. Assessment & Plan (11/03/2022 8:50 AM CDT): Extensive history of HZO OS, bullous pemphigoid, post herpetic neuralgia and neurotrophic keratitis OS, presenting 2 days ago with reduced vision OS. Exam today with slightly improved inferior epi defect OS. She has sloughed off skin from taping and can no longer continue this. Continue moxifloxacin TID OS. Recommended maritime guard use of press n seal wrap over OS, can use vaseline to adhere and can try sleeping mask or eye patch over press n seal qhs. Return in 1 week or sooner prn. Assessment & Plan (11/02/2022 9:23 AM CDT): Extensive history of HZO OS, bullous pemphigoid, post herpetic neuralgia and neurotrophic keratitis OS, presenting today with reduced vision OS. Exam today reveals a inferior epi defect OS accounting for reduced acuity. Start moxifloxacin TID OS. Recommended maritime guard tape tarsorrhaphy, removing tape only for drop instillation. Demonstrated proper taping technique in office today. Close follow up with cornea service warranted. Will have patient seen for follow up in [facility] in [address] Tobias. Assessment & Plan (09/26/2021 10:56 PM CDT): Continue lubrication regimen. Keep corneal appt in 12/2021. Assessment & Plan (09/09/2021 9:29 PM CDT): Unilateral disease with central PEE, hx of left HZO. Decreased sensation OS. Using ointment + tears, did not use any today. PLAN Continue ointment QID OS + PFAT QID OS Instructed patient to use drops day of visit so we can assess if they are improving her surface. Scheduled for YAG CAP OU in [place]. 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 No evidence of ocular activity at this time. Systemic symptoms negative. Not on systemic immunosuppression. Monitor. Punctate epithelial keratopathy of left eye 08/09 Assessment & Plan (12/26/2022 1:51 PM CDT): See under neurotrophic keratitis. Assessment & Plan (11/24/2022 11:32 AM CDT): Healed epi defect with 70% NST in a 3x3mm area with overlying PEE. Discontinue moxi and continue erythromycin suzette bid OS, and use PFATs prn. Return in 4-6 weeks for repeat anterior exam. Assessment & Plan (06/23/2022 1:47 PM STEAM ROOM ATTENDANT): h/o HZO OS (11/2020) c/b neurotrophic keratitis, K scarring also h/o mucous membrane pemphigoid, no evidence of ocular involvement Exam today w/ stable K scar, SPEE, and also upper lid trichiasis/distichiasis OS not previously noted. PLAN Lash epilation at slit lamp today Continue ointment qhs OS Stop redness relief drops Start liberal PFATs prn RTC 6 months Assessment & Plan (01/09/2022 1:58 PM CDT): Persistent and cause of decreased vision. Has seen cornea and has follow up in [place]. Would like new MRx, scheudled for Dr. Tobias in 2 weeks. Assessment & Plan (11/28/2021 2:51 PM CDT): Likely cause of decrease vision. She has follow up with cornea in 2 weeks. Assessment & Plan (10/19/2021 2:19 PM CDT): H/o HZ conjunctivitis without corneal lesions. Complicated course for HZ dermatitis previously followed by ID that did not resolve, and was recently diagnosed with bullous pemphigoid lesions on her forehead and scalp. Decreased ocular sensation OS. Last seen by cornea 09/09/21. Appears stable today and unlikely etiology for new severe pain. CPM ointment QID OS + PFAT QID OS. Assessment & Plan (08/18/2021 3:21 PM STEAM ROOM ATTENDANT): H/o HZ conjunctivitis without corneal lesions. Complicated course for HZ dermatitis that did not resolve, and was recently diagnosed with bullous pemphigoid lesions on her forehead and scalp. Continue aggressive lubrication OS. Will arrange for next available cornea appointment to r/o ocular involvement from pemphigoid. Herpes zoster without complication 04/29/2021 Assessment & Plan (07/05/2021 1:14 PM STEAM ROOM ATTENDANT): - Will continue patients valacyclovir 1g TID until follow-up appointment for herpes zoster infection. This is pending revaluation of the L eye by ophthalmology in the next couple weeks, as well as her restarting her prednisone for bullous phegmoid. - Concerning that patient continues to have lesions develop while on therapy. Additionally patients lesions appear more numerous and more irritated at this visit than at her last ID visit. Pending optho evaluation may consider stopping valacyclovir to see how patient progresses. Will make this decision at next follow-up. - Discussed with patient the rational for treatment, culture results, risk of recurrent infection, signs/symptoms of recurrent infection, and to contact ID clinic with any questions or concerns. Assessment & Plan (05/26/2021 8:47 AM STEAM ROOM ATTENDANT): - Pt's ophthalmology appointment rescheduled for 05/30, discussed importance of keeping this follow-up. - Increase Valacyclovir (Valcyte) dose to 1g PO TID pending resolution of lesions and follow-up with optho. - Updated Rx sent to pharmacy. - Pt will call if any issues or concerns. - Discussed with patient the rational for treatment, culture results, risk of recurrent infection, signs/symptoms of recurrent infection, and to contact ID clinic with any questions or concerns. Assessment & Plan (04/29/2021 12:27 PM STEAM ROOM ATTENDANT): - Pt with upcoming ophthalmology appointment for further evaluation of eye involvement in [facility]. - Continue Valacyclovir 1000mg PO BID pending resolution of lesions and follow- up with optho. - Will see pt back in 4 weeks. - Discussed with patient the rational for treatment, culture results, risk of recurrent infection, signs/symptoms of recurrent infection, and to contact ID clinic with any questions or concerns. Personal history of radiation therapy 04/27/2021 Bullous pemphigoid 04/15/2021 Hospital acquired PNA 04/05/2021 Sepsis 04/05/2021 Assessment & Plan (04/29/2021 12:27 PM STEAM ROOM ATTENDANT): - Continue IV ceftriaxone 2g q24 hrs until ~05/03/21 to completed 4 weeks of treatment for MSSA bacteremia, negative TTE/KATHRYN. - Plan for firm stop 05/03/21 with removal of line. - Discussed with patient the rational for treatment, culture results, risk of recurrent infection, signs/symptoms of recurrent infection, and to contact ID clinic with any questions or concerns. - Ceftriaxone: Monitoring weekly CBC and CMP for possibility of rash/eosinophilia and pseudocholelithiasis (gallbladder sludging) or hepatitis. Rarely, ceftriaxone can cause drug fever, hepatitis, neutropenia, thrombocytopenia, hemolytic anemia, cholecystitis, or interstitial nephritis. Assessment & Plan (04/05/2021 9:39 PM CDT): -Presenting with fever at home, leukocytosis, tachycardia. Source most likely PNA (CXR without significant findings but CT chest with findings c/w RUL PNA), viral vs bacterial. -Continue vanc/cefe for now, add azithro with plan to de-escalate quickly -RVP pending -Follow up blood cx -BP stable, likely no need for stress dose steroids at this time and continue home prednisone 20mg Paroxysmal atrial fibrillation (CMS/HCC) 021 Assessment & Plan (04/05/2021 9:42 PM CDT): -EKG with most likely afib w/RVR although now appears in NSR. New onset and likely provoked in setting of infection. -TSH normal -Tele -Check TTE -metoprolol 12.5 BID and can uptitrate as needed -Continue ASA for now. [id number] score of 4 and if recurrent episodes of afib, would benefit from starting anticoagulation Elevated d-dimer 04/05/2021 Assessment & Plan (04/05/2021 9:39 PM CDT): -Likely related to sepsis/infection. CT PE and LE duplex without evidence of thrombosis. Elevated troponin 04/05/2021 Assessment & Plan (04/05/2021 9:43 PM CDT): -Trop mildly elevated, likely demand in setting of infection. Do not have c/f ACS at this time. Herpes zoster conjunctivitis of left eye 021 Assessment & Plan (09/09/2021 9:30 PM CDT): If painful can consider lidocaine or caspacin gel to skin. Assessment & Plan (07/07/2021 4:12 PM STEAM ROOM ATTENDANT): With h/o encephalopathy. Eye involvement was limited to conjunctivitis, no epi defect/dendrite or anterior chamber reaction. Has been ongoing symptoms since November, no resolution to V1 dsitribution on numerous meds (managed by ID). Reduced corneal sensation OS at last visit. Exam findings have been c/w HZO, but dermatologic signs persist, and still with significant discomfort. (+) left upper eyelid involvement but otherwise eye looks stable. Patient has bilateral PCO, but discussed that we need her underlying condition to be stabilized before we can consider YAG capsulotomy. Patient is frustrated with the lack of progress with her condition, but understands. TODAY: -Exam with interpalpebral PEE OS, slightly improved compared to prior diffuse PEE. Forehead and scalp lesions persist, with some scabbed and some open. PLAN: -Continue po meds per ID. -Continue frequent lubrication with gel tears and PFATs as tolerated. -RTC 6 weeks for repeat exam or sooner prn. Assessment & Plan (05/30/2021 3:24 PM STEAM ROOM ATTENDANT): With + hx encephalopathy, only conjunctivitis. No previous corneal involvement. Has been ongoing symptoms since November, no resolution to V1 dsitribution on numerous meds (managed by ID). Reduced corneal sensation OS today. TODAY: -Exam with interpalpebral PEE OS, likely slight improvement compared to prior diffuse PEE. Much improvement to forehead lesions, now fewer and mostly scabbed, but with some remaining open sores of scalp. PLAN: -Continue Valtrex 1 g TID and pregabalin per her ID team - Increase lubrication AT ointment to as often as possible up to qid- patient does not like to use if leaving the house 2/2 blurred vision. If unable to use suzette consistently, recommend upping PFAT to q 1-2 hours OS. -RTC ~1 month for repeat exam or sooner prn. Assessment & Plan (04/15/2021 1:10 PM CDT): With + hx encephalopathy, only conjunctivitis. No previous corneal involvement. Has been ongoing symptoms since November, no resolution to V1 dsitribution on numerous meds (managed by ID) TODAY: -Exam with diffuse PEE OS and symptomatic--> Suspect neurotrophic component given unilateral and history, but unable to test due ot IOP check today PLAN: -Continue Valtrex 1 g BID per her ID team - Increase lubrication AT ointment QID OS -RTC 2 weeks for K check -Check sensation at next visit- no numbing drops prior to MD Assessment & Plan (03/28/2021 4:40 PM CDT): H/o multiple rounds of valacyclovir and IV acyclovir. Still with non-scabbed open sores along V1 distribution, improved erythema/mild edema of RUL, and improved conjunctival injection OS. Still with 3-4+ diffuse PEE OS despite erythromycin suzette tid OU. Patient saw PCP 03/15 and started famcicovir and increased pregabalin dosage, which has had minimal improvement in symptoms No dendrite or pseudodendrite on exam today, and no e/o intraocular inflammation. Will continue aggressive lubrication with gel tears, PFATs, and lubricating suzette tid OS. Given dermatologic issues, will hold off on lid taping or moisture chamber for now. Follow up in cornea clinic in 1-2 weeks or sooner prn. Assessment & Plan (03/14/2021 2:18 PM CDT): H/o multiple rounds of valacyclovir and IV acyclovir. Still with non-scabbed open sores along V1 distribution, erythema/mild edema of RUL, and 1+ diffuse conjunctival injection OS. Also with 3-4+ diffuse PEE OS. Continue erythromycin suzette eyelid margins qid OS, PFATs frequently. Given multiple courses of antivirals and still with open sores along V1 distribution, will contact PCP about utility of restarting antivirals. No dendrite or pseudodendrite on exam today, and no e/o intraocular inflammation, so no need for more antivirals at this time from an ocular perspective. Diabetes mellitus type 2 without retinopathy (CM S/HCC) 03/14/2021 Assessment & Plan (06/29/2023 8:42 AM STEAM ROOM ATTENDANT): Strict BS control, annual dilated eye exams recommended. Assessment & Plan (08/18/2021 3:18 PM STEAM ROOM ATTENDANT): Strict BS control, annual dilated eye exams recommended. Assessment & Plan (03/14/2021 2:34 PM CDT): Strict BS control, annual dilated eye exams recommended. Acute pain 02/09/2021 Assessment & Plan (02/15/2021 11:20 AM CDT): Facial pain decreased improve yesterday with meds but worse today --Continue Tylenol/Oxycodone PRN --Started lyrica 50mg BID --Local wound care: trial of emla cream & cover wound Assessment & Plan (02/14/2021 1:05 PM CDT): Facial pain decreased improve yesterday with meds but worse today --Continue Tylenol/Oxycodone PRN --Started lyrica 50mg BID --Local wound care: trial of emla cream & cover wound Assessment & Plan (02/13/2021 12:58 PM CDT): Facial pain decreased improve yesterday with meds but worse today --Continue Tylenol/Oxycodone PRN --Started lyrica 50mg BID --Morphine 2mg q2 prn post procedure for pain --Local wound care: trial of emla cream & cover wound Assessment & Plan (02/12/2021 1:00 PM CDT): Facial pain decreased by half with current meds --Continue Tylenol/Oxycodone PRN --Trial of lyrica, pain improved with increase to 50mg BID --Morphine 2mg q2 prn post procedure for pain Assessment & Plan (02/11/2021 2:05 PM CDT): Not having a lot of improvement in facial pain with current meds --Continue Tylenol/Oxycodone PRN --Trial of lyrica, increase to 50mg BID --Morphine 2mg q2 prn post procedure for pain Assessment & Plan (02/10/2021 5:56 PM CDT): Not having a lot of improvement in facial pain with current meds --Continue Tylenol/Oxycodone PRN --Trial of lyrica, 50mg daily Assessment & Plan (02/09/2021 5:18 PM CDT): Tylenol/Oxycodone PRN Severe malnutrition 02/08/2021 Assessment & Plan (02/15/2021 11:19 AM CDT): Endorses 30lb wt loss since zoster infection due to reduced appetite - RD consulted, appreciate recommendations. Nutritional supplements Assessment & Plan (02/14/2021 1:04 PM CDT): Endorses 30lb wt loss since zoster infection due to reduced appetite - RD consulted, appreciate recommendations. Nutritional supplements Assessment & Plan (02/13/2021 1:09 PM CDT): Endorses 30lb wt loss since zoster infection due to reduced appetite - RD consulted, appreciate recommendations. Nutritional supplements Assessment & Plan (02/12/2021 12:59 PM CDT): Endorses 30lb wt loss since zoster infection due to reduced appetite - RD consulted, appreciate recommendations. Nutritional supplements Assessment & Plan (02/11/2021 2:07 PM CDT): Endorses 30lb wt loss since zoster infection due to reduced appetite - RD consulted, appreciate recommendations. Nutritional supplements Assessment & Plan (02/10/2021 6:01 PM CDT): Endorses 30lb wt loss since zoster infection due to reduced appetite - RD consulted, appreciate recommendations. Nutritional supplements Assessment & Plan (02/09/2021 5:18 PM CDT): Endorses 30lb wt loss since zoster infection due to reduced appetite - RD consulted, appreciate recommendations. Nutritional supplements Hyponatremia 02/08/2021 Assessment & Plan (02/15/2021 11:19 AM CDT): Mild in setting of likely reduced PO intake, resolved with PO intake Assessment & Plan (02/14/2021 1:04 PM CDT): Mild in setting of likely reduced PO intake, resolved with PO intake Assessment & Plan (02/13/2021 1:09 PM CDT): Mild in setting of likely reduced PO intake, 132 today - Follow sodium Assessment & Plan (02/12/2021 12:59 PM CDT): Mild in setting of likely reduced PO intake, 132 today - Follow sodium Assessment & Plan (02/11/2021 2:06 PM CDT): Mild in setting of likely reduced PO intake, 132 today - Follow sodium Assessment & Plan (02/10/2021 6:00 PM CDT): Mild in setting of likely reduced PO intake, 132 today - Follow sodium Assessment & Plan (02/09/2021 5:17 PM CDT): Mild in setting of likely reduced PO intake, 131 today - Follow sodium Hypokalemia 02/08/2021 Assessment & Plan (02/15/2021 11:19 AM CDT): K 3.7 in setting of reduced PO intake - Replete as needed Assessment & Plan (02/14/2021 1:04 PM CDT): K 3.7 in setting of reduced PO intake - Replete as needed Assessment & Plan (02/13/2021 1:09 PM CDT): K 3.7 in setting of reduced PO intake - Replete as needed Assessment & Plan (02/12/2021 12:59 PM CDT): K 3.7 in setting of reduced PO intake - Replete as needed Assessment & Plan (02/11/2021 2:06 PM CDT): K 3.7 in setting of reduced PO intake - Replete as needed Assessment & Plan (02/10/2021 5:59 PM CDT): K 3.7 in setting of reduced PO intake - Replete as needed Assessment & Plan (02/08/2021 7:43 PM CDT): - K 3.7 in setting of reduced PO intake - Replete as needed Hypothyroidism 02/05/2021 Assessment & Plan (04/05/2021 9:24 PM CDT): -TSH normal -Continue Synthroid 75 (recently decreased from 100 per patient) Assessment & Plan (02/15/2021 11:17 AM CDT): TSH 4.51 - Levothyroxine daily Assessment & Plan (02/14/2021 12:59 PM CDT): TSH 4.51 - Levothyroxine daily Assessment & Plan (02/13/2021 1:09 PM CDT): TSH 4.51 - Levothyroxine daily Assessment & Plan (02/12/2021 12:59 PM CDT): TSH 4.51 - Levothyroxine daily Assessment & Plan (02/11/2021 2:06 PM CDT): TSH 4.51 - Levothyroxine daily Assessment & Plan (02/10/2021 6:00 PM CDT): TSH 4.51 - Levothyroxine daily Assessment & Plan (02/09/2021 5:07 PM CDT): TSH 4.51 - Levothyroxine daily Assessment & Plan (02/05/2021 12:23 PM CDT): -TSH 4.51 -has not been taking levothyroxine due to nausea -resume levothyroxine Encephalopathy acute 02/05/2021 Assessment & Plan (02/15/2021 11:18 AM CDT): Patient presented with acute encephalopathy following 2days of headache and recent zoster ophthalimicus - Evaluation with negative NH3, blood/urine cultures, LP studies with low glucose otherwise unremarkable with pending infectious studies to date - no abnormality on CSF flow; outside Head CT negative, rEEG with mod-gen slowing --MRI showed PRES, unclear etiology. Neuro, ID, and dermatology consulted. Unlikely dupixent but dermatology recommends stopping - Stopped Vancomycin and Cefepime per ID --Completed dexamethasone --Repeat LP 9/3 per ID & neuro in IR. Fluid for culture, Repeat VZV, & HSV PCR negative. NANCY Virus pending. VZV serologies: IgG positive, IgM pending - ID recommends switching IV Acyclovir to Valtrex 1g q8h for 4 days from 02/14 to complete course. Monitor for tolerance as this is high dose with CrCl (<50) Assessment & Plan (02/14/2021 1:03 PM CDT): Patient presented with acute encephalopathy following 2days of headache and recent zoster ophthalimicus - Evaluation with negative NH3, blood/urine cultures, LP studies with low glucose otherwise unremarkable with pending infectious studies to date - no abnormality on CSF flow; outside Head CT negative, rEEG with mod-gen slowing --MRI showed PRES, unclear etiology. Neuro, ID, and dermatology consulted. Unlikely dupixent but dermatology recommends stopping - Stopped Vancomycin and Cefepime per ID --Completed dexamethasone --Repeat LP 9/3 per ID & neuro in IR. Fluid for culture, Repeat VZV, & HSV PCR negative. NANCY Virus pending. VZV serologies: IgG positive, IgM pending - ID recommends switching IV Acyclovir to Valtrex 1g q8h for 4 days to complete course. Monitor for tolerance as this is high dose with CrCl (<50) Assessment & Plan (02/13/2021 1:13 PM CDT): Patient presented with acute encephalopathy following 2days of headache and recent zoster ophthalimicus - Evaluation with negative NH3, blood/urine cultures, LP studies with low glucose otherwise unremarkable with pending infectious studies to date - no abnormality on CSF flow; outside Head CT negative, rEEG with mod-gen slowing --MRI showed PRES, unclear etiology. Neuro, ID, and dermatology consulted. Unlikely dupixent but dermatology recommends stopping - Stopped Vancomycin and Cefepime per ID --Continue Acyclovir --Completed dexamethasone --Repeat LP 9/3 per ID & neuro in IR. Fluid for culture, Repeat VZV, & HSV PCR negative. NANCY Virus pending. VZV serologies: IgG positive, IgM pending Assessment & Plan (02/12/2021 12:59 PM CDT): Patient presented with acute encephalopathy following 2days of headache and recent zoster ophthalimicus - Evaluation with negative NH3, blood/urine cultures, LP studies with low glucose otherwise unremarkable with pending infectious studies to date - no abnormality on CSF flow; outside Head CT negative, rEEG with mod-gen slowing --MRI showed PRES, unclear etiology. Neuro, ID, and dermatology consulted. Unlikely dupixent but dermatology recommends stopping - Stopped Vancomycin and Cefepime per ID --Continue Acyclovir --Completed dexamethasone --Repeat LP 9/3 per ID & neuro in IR. Fluid for culture, Check NANCY virus & HSV PCR. Add on VZV PCR. Check VZV IgG & IgG serologies in AM Assessment & Plan (02/11/2021 2:06 PM CDT): Patient presented with acute encephalopathy following 2days of headache and recent zoster ophthalimicus - Evaluation with negative NH3, blood/urine cultures, LP studies with low glucose otherwise unremarkable with pending infectious studies to date - no abnormality on CSF flow; outside Head CT negative, rEEG with mod-gen slowing --MRI showed PRES, unclear etiology. Neuro, ID, and dermatology consulted. Unlikely dupixent but dermatology recommends stopping - Stopped Vancomycin and Cefepime per ID --Continue Acyclovir --Completed dexamethasone --Repeat LP today per ID & neuro in IR. Fluid for culture, Check NANCY virus & HSV PCR Assessment & Plan (02/10/2021 5:59 PM CDT): Patient presented with acute encephalopathy following 2days of headache and recent zoster ophthalimicus - Evaluation with negative NH3, blood/urine cultures, LP studies with low glucose otherwise unremarkable with pending infectious studies to date - no abnormality on CSF flow; outside Head CT negative, rEEG with mod-gen slowing --MRI showed PRES, unclear etiology. Neuro, ID, and dermatology consulted. Unlikely dupixent but dermatology recommends stopping - Stop Vancomycin and Cefepime per ID --Continue Acyclovir --Completed dexamethasone --Repeat LP tomorrow per ID & neuro. Check NANCY virus & HSV PCR Assessment & Plan (02/14/2021 11:48 AM CDT): 70 y.o. female w/PMH of HTN, T2DM (A1c 6.2% in December 2020), bullous pemphigoid on dupilumab (started Jan 2021), MGUS, stage I L-breast invasive ductal carcinoma (ER+, KS+) s/p lumpectomy (Feb 2019) + adjuvant anastrozole + radiotherapy, and recent (12/05/20) V1 zoster ophthalmicus s/p 14-day course of valtrex; transferred to the ICU from an OSH ([facility]) for confusion. - OSH CT head reported as w/o acute abnormality. - CSF (02/05) clear, 5 nuc cells, 26 RBC, gluc <20 (serum 292), prot 46. Cytology (-) - CSF: CrAg(-), VZV/HSV/CMV PCR(-). - Bacterial cx NGTD. - Fungal/AFB cx NGTD. - WBC 13.2 (-->5.9), w/lymphopenia (~0.5) -- LFTs ok. Ammonia <20. - CXR with clear lungs. - BCX (02/05) NGTD. Serum CrAg (-). HIV (-), RPR (-). - MRI brain: mild cortical and subcortical FLAIR hyperintensities in the bilateral occipital lobes -nonspecific but can be seen PRES. - 2nd LP (02/11)--> colorless, clear CSF. 5 nuc cells, RBC 143, prot 24, glucose 103. --> CSF cx NGTD -no orgs on stain. - HSV PCR (-). VZV PCR (-). Repeated negative CSF PCR make HSV encephalitis unlikely. However, in the absence of a clear diagnosis favor completing an overall 14-days course with high-dose valaciclovir as mop-up therapy for HSV encephalitis after 10?days of intravenous aciclovir. Thou the trigger for PRES remains unclear, and no WIRE BENDER HAND toxicity has been reported with dupixent, I would not disregard it as a potential offender/contributor to her clinical syndrome given the temporal relationship between it's use and the onset of symptoms-->defer to pt's customer leader to determine if alternative agents should be considered for the long-term management of her bullous pemphigoid. Recommendation - Discontinue acyclovir (D10) --> start valacyclovir 1,000 mg q8h to for 4 days (CrCl 30-50 ml/min), to complete an overall 14-day course of treatment - Thank-you for the opportunity to participate in the care of this patient. Infectious Diseases will sign off. No further ID follow up warranted at this time. Please contact the Team 3 ID FITTING ROOM INSPECTOR M-[id number], [id number]; or the Attending at the phone numbers in care team with any questions or concerns. After hours, please contact the ID fellow environmental emergencies planner. Assessment & Plan (02/09/2021 5:16 PM CDT): - Patient presented with acute encephalopathy following 2days of headache and recent zoster ophthalimicus - Evaluation with negative NH3, blood/urine cultures, LP studies with low glucose otherwise unremarkable with pending infectious studies to date - no abnormality on CSF flow; outside Head CT negative, rEEG with mod-gen slowing - Ddx most consistent with meningitis, cannot completely rule out brain mets (though given disease stability less likely), reversible causes ordered - Cont Vancomycin, Cefepime, Acyclovir at this time - dexamethasone to complete 4d course today. Increase vancomycin to 750mg, follow vanc trough --Monitor clinically Assessment & Plan (02/08/2021 2:29 PM CDT): -most likely meningitis, other contributors could be sedating medications (Percocet, gabapentin), much less likely seizure or malignancy recurrence -CT head OSH without acute abnormality -broad antimicrobial coverage with cefepime, vancomycin, acyclovir, and ampicillin. D/c ampicillin today. -thus far without pathogen but given hypoglycorrhachia, highly suspect infectious process and will commit to 2 week course of antimicrobial coverage -dexamethasone every 6 hours for meningitis, plan for 4 days per guidelines -LP with broad studies including bacterial, fungal, AFB cultures, viral studies, and cytology pending -routine EEG with moderate generalized slowing -defer MR brain at this time while avoiding sedating medications -neurologic checks every 4 hours Sepsis 02/05/2021 Assessment & Plan (02/15/2021 11:18 AM CDT): Presented to OSH with fever, tachycardia, elevated WBC - Infectious management per above, resolved Assessment & Plan (02/14/2021 1:03 PM CDT): Presented to OSH with fever, tachycardia, elevated WBC - Infectious management per above, resolved Assessment & Plan (02/13/2021 1:09 PM CDT): Presented to OSH with fever, tachycardia, elevated WBC - Infectious management per above Assessment & Plan (02/12/2021 12:59 PM CDT): Presented to OSH with fever, tachycardia, elevated WBC - Infectious management per above Assessment & Plan (02/11/2021 2:07 PM CDT): Presented to OSH with fever, tachycardia, elevated WBC - Infectious management per above Assessment & Plan (02/10/2021 6:01 PM CDT): Presented to OSH with fever, tachycardia, elevated WBC - Infectious management per above Assessment & Plan (02/09/2021 5:07 PM CDT): Presented to OSH with fever, tachycardia, elevated WBC - Infectious management per above Assessment & Plan (02/08/2021 2:25 PM CDT): -fever, tachycardia, altered mental status, suspect meningitis -blood cultures, fungal serologies, CSF cultures and viral studies NGTD -chest radiograph without focal infiltrate or concern for infection -broad antimicrobial coverage with cefepime, vancomycin, acyclovir, and ampicillin. Will d/c ampicillin today. Will cover for 2 weeks with meningitic coverage. -trend lactate Pemphigoid 02/05/2021 Assessment & Plan (04/05/2021 9:38 PM CDT): -hx of bullous phemphigoid -Currently on prednisone 10mg daily, will continue. Not currently using steroid creams given no skin lesions present at this time. -Follows with OSH dermatology Assessment & Plan (02/15/2021 11:18 AM CDT): No recent flares/rashes - Previously on mycophenylate and prednisone - had been decreased from 20 to 10mg prior to admission - Follows with local dermatology -Plan for steroids if new symptoms Assessment & Plan (02/14/2021 1:04 PM CDT): No recent flares/rashes - Previously on mycophenylate and prednisone - had been decreased from 20 to 10mg prior to admission - Follows with local dermatology -Plan for steroids if new symptoms Assessment & Plan (02/13/2021 1:09 PM CDT): No recent flares/rashes - Previously on mycophenylate and prednisone - had been decreased from 20 to 10mg prior to admission - Follows with local dermatology -Plan for steroids if new symptoms Assessment & Plan (02/12/2021 12:59 PM CDT): No recent flares/rashes - Previously on mycophenylate and prednisone - had been decreased from 20 to 10mg prior to admission - Follows with local dermatology -Plan for steroids if new symptoms Assessment & Plan (02/11/2021 2:07 PM CDT): No recent flares/rashes - Previously on mycophenylate and prednisone - had been decreased from 20 to 10mg prior to admission - Follows with local dermatology -Plan for steroids if new symptoms Assessment & Plan (02/10/2021 6:01 PM CDT): No recent flares/rashes - Previously on mycophenylate and prednisone - off prior to presentation - Follows with local dermatology -Plan for steroids if new symptoms Assessment & Plan (02/09/2021 5:07 PM CDT): No recent flares/rashes - Previously on mycophenylate and prednisone - off at least one month prior to presentation - Follows with local dermatology Assessment & Plan (02/05/2021 2:13 PM CDT): -last instance of rash in the spring -formerly on mycophenolate and prednisone, has been off these medications for at least one month but unclear how long per -follows with local dermatology -no apparent pemphigoid rash at this time Hyperlipidemia 02/05/2021 Assessment & Plan (02/15/2021 11:18 AM CDT): Cont fenofibrate, restart rosuvastatin Assessment & Plan (02/14/2021 1:04 PM CDT): Cont fenofibrate, restart rosuvastatin Assessment & Plan (02/13/2021 1:09 PM CDT): Cont fenofibrate, restart rosuvastatin Assessment & Plan (02/12/2021 12:59 PM CDT): Cont fenofibrate, restart rosuvastatin Assessment & Plan (02/11/2021 2:06 PM CDT): Cont fenofibrate, restart rosuvastatin Assessment & Plan (02/10/2021 5:59 PM CDT): Cont fenofibrate, restart rosuvastatin Assessment & Plan (02/08/2021 7:38 PM CDT): Cont fenofibrate, restart rosuvastatin Assessment & Plan (02/05/2021 12:25 PM CDT): -has not been taking rosuvastatin or fenofibrate due to nausea -resume in upcoming days Diabetes mellitus, type II 02/05/2021 Assessment & Plan (04/05/2021 9:37 PM CDT): -A1c 6.4 (02/09/21) -Hold home metformin, can add SSI if needed Assessment & Plan (02/15/2021 11:19 AM CDT): A1c 6.4, managing elevated BGs in setting of dexamethasone - Hold home PO meds --Change diet to consistent carb & change supplements to glucerna --Continue SSI --Completed dexamethasone Assessment & Plan (02/14/2021 1:04 PM CDT): A1c 6.4, managing elevated BGs in setting of dexamethasone - Hold home PO meds --Change diet to consistent carb & change supplements to glucerna --Continue SSI --Completed dexamethasone Assessment & Plan (02/13/2021 1:03 PM CDT): A1c 6.4, managing elevated BGs in setting of dexamethasone - Hold home PO meds --Change diet to consistent carb & change supplements to glucerna --Continue SSI --Completed dexamethasone Assessment & Plan (02/12/2021 12:58 PM CDT): A1c 6.4, managing elevated BGs in setting of dexamethasone - Hold home PO meds --Continue SSI --Completed dexamethasone Assessment & Plan (02/11/2021 2:05 PM CDT): A1c 6.4, managing elevated BGs in setting of dexamethasone - Hold home PO meds --Continue SSI --Completed dexamethasone Assessment & Plan (02/10/2021 5:57 PM CDT): A1c 6.4, managing elevated BGs in setting of dexamethasone - Hold home PO meds --Continue SSI --Hold dexamethasone Assessment & Plan (02/09/2021 5:05 PM CDT): A1c 6.4, managing elevated BGs in setting of dexamethasone - Hold home PO meds --Continue SSI Assessment & Plan (02/07/2021 3:54 PM CDT): -POC glucose QID -mid dose SSI QID with meals -hyperglycemia exacerbated by steroids Hypertension 02/05/2021 Assessment & Plan (04/05/2021 9:36 PM CDT): -Hold amlodipine in setting of infection, continue metoprolol Assessment & Plan (02/15/2021 11:19 AM CDT): - Cont amlodipine, metoprolol Assessment & Plan (02/14/2021 1:04 PM CDT): - Cont amlodipine, metoprolol Assessment & Plan (02/13/2021 1:09 PM CDT): - Cont amlodipine, metoprolol Assessment & Plan (02/12/2021 12:59 PM CDT): - Cont amlodipine, metoprolol Assessment & Plan (02/11/2021 2:06 PM CDT): - Cont amlodipine, metoprolol Assessment & Plan (02/10/2021 5:59 PM CDT): - Cont amlodipine, metoprolol Assessment & Plan (02/08/2021 7:36 PM CDT): - Cont amlodipine, metoprolol Assessment & Plan (02/05/2021 12:24 PM CDT): -amlodipine -reduced dose of metoprolol -holding home irbesartan Zoster ophthalmicus 12/09/2020 Assessment & Plan (04/05/2021 9:28 PM CDT): -Hx of shingles in L V1 distribution with zoster ophthalmicus initially diagnosed 11/2020 s/p multiple courses of antivirals, most recently completed famciclovir last week. She denies any new lesions but reports persistent non-healing lesions and pain since November. -Continue SSZ and lidocaine cream BID, lubricant eye drops QID -Continue f/u with ID and ophtho Assessment & Plan (02/15/2021 11:17 AM CDT): Diagnosed 11/2020, follows with ophthalmology - Completed course of valacyclovir - now on acyclovir - Ophthalmology consulted on arrival with recs to maintain erythromycin QID both eyes with artificial tears QID ID recommended valcyclovir x 4 more days starting 02/14; Pt stable for discharge home today; Discharge Planning I have spent 50 minutes on discharge planning activities. Time spent was on Coordination of care, med rec, d/c summary, Rxs,DCAM. Assessment & Plan (02/14/2021 12:59 PM CDT): Diagnosed 11/2020, follows with ophthalmology - Completed course of valacyclovir - now on acyclovir - Ophthalmology consulted on arrival with recs to maintain erythromycin QID both eyes with artificial tears QID Assessment & Plan (02/13/2021 1:11 PM CDT): Diagnosed 11/2020, follows with ophthalmology - Completed course of valacyclovir - now on acyclovir - Ophthalmology consulted on arrival with recs to maintain erythromycin QID both eyes with artificial tears QID Assessment & Plan (02/12/2021 1:00 PM CDT): Diagnosed 11/2020, follows with ophthalmology - Completed course of valacyclovir - now on acyclovir - Ophthalmology consulted on arrival with recs to maintain erythromycin QID both eyes with artificial tears QID Assessment & Plan (02/11/2021 2:07 PM CDT): Diagnosed 11/2020, follows with ophthalmology - Completed course of valacyclovir - now on acyclovir - Ophthalmology consulted on arrival with recs to maintain erythromycin QID both eyes with artificial tears QID Assessment & Plan (02/10/2021 6:01 PM CDT): Diagnosed 11/2020, follows with ophthalmology - Completed course of valacyclovir - now on acyclovir - Ophthalmology consulted on arrival with recs to maintain erythromycin QID both eyes with artificial tears QID Assessment & Plan (02/09/2021 5:08 PM CDT): Diagnosed 11/2020, follows with ophthalmology - Completed course of valacyclovir - now on acyclovir - Ophthalmology consulted on arrival with recs to maintain erythromycin QID both eyes with artificial tears QID Assessment & Plan (02/06/2021 4:01 PM CDT): -initially noted on 12/05 -recently following with ophthalmology since that time -completed course of valacyclovir treatment, now on treatment acyclovir -ophthalmology consult, appreciate recommendations -erythromycin ointment left eye QID, artificial tears bilateral QID Assessment & Plan (12/14/2020 1:12 PM CDT): Doing well from an ophthalmic perspective. No conjunctival injection, no corneal staining today. Still with scabbed over vesicular lesions of eyelid and forehead in dermatomal pattern. -Finished Augmentin and valtrex -Continue e-mycin suzette to lids -Discussed possibility of gabapentin for neuropathic pain, but patient had a bad reaction to this for a prior issue. Would also defer to customer leader given h/o bullous pemphigoid. Return in 2 months or sooner if any worsening vision or pain. Assessment & Plan (12/09/2020 5:29 PM CDT): Last seen in ED over the weekend. No clear corneal involvement, but moderate chemosis and periocular involvement. Stable vision -Reviewed Return Precautions -Continue Valtrex 1 gram TID -Continue e-mycin suzette to lids -Complete course of Augmentin -Of note patient having significant nausea; she states this is near her baseline -Also patient has history of MGUS and bullous pemphigoid will touch base with patients customer leader as well. MGUS (monoclonal gammopathy of unknown significa nce) 12/08/2020 Assessment & Plan (02/15/2021 11:17 AM CDT): Stable as of - Follows with Dr. Bond Assessment & Plan (02/14/2021 12:58 PM CDT): Stable as of - Follows with Dr. Bond Assessment & Plan (02/13/2021 1:09 PM CDT): Stable as of - Follows with Dr. Bond Assessment & Plan (02/12/2021 12:59 PM CDT): Stable as of - Follows with Dr. Bond Assessment & Plan (02/10/2021 6:00 PM CDT): Stable as of - Follows with Dr. Bond Assessment & Plan (02/09/2021 5:07 PM CDT): Stable as of - Follows with Dr. Bond Assessment & Plan (02/05/2021 12:28 PM CDT): -stable per labs 12/2020 -follows with Dr. Esposito, no acute intervention at this time Chronic pain syndrome 07/04/2020 Infiltrating ductal carcinom a of upper-outer quadrant of left breast in female (CMS/HCC) 12/10/2018 Cancer Staging:Pathologic:Stage IA(pT1c, pN0, cM0, G1, ER+, KS-, HER2-) - Signed by Yareli Vasquez PA on 04/27/2021 Assessment & Plan (04/05/2021 9:32 PM CDT): -s/p lumpectomy and XRT -Continue anastrozole -Follows with Dr. Esposito of [facility] oncology Assessment & Plan (02/15/2021 11:17 AM CDT): Stage I ER/KS + breast cancer s/p L lumpectomy 02/2019 f/b adjuvant anastrazole and radiation - Follows with Dr. Varun Tam anastrozole hs Assessment & Plan (02/14/2021 12:58 PM CDT): Stage I ER/KS + breast cancer s/p L lumpectomy 02/2019 f/b adjuvant anastrazole and radiation - Follows with Dr. Varun Tam anastrozole hs Assessment & Plan (02/13/2021 1:09 PM CDT): Stage I ER/KS + breast cancer s/p L lumpectomy 02/2019 f/b adjuvant anastrazole and radiation - Follows with Dr. Varun Tam anastrozole hs Assessment & Plan (02/12/2021 12:59 PM CDT): Stage I ER/KS + breast cancer s/p L lumpectomy 02/2019 f/b adjuvant anastrazole and radiation - Follows with Dr. Varun burks hs Assessment & Plan (02/11/2021 2:06 PM CDT): Stage I ER/KS + breast cancer s/p L lumpectomy 02/2019 f/b adjuvant anastrazole and radiation - Follows with Dr. Varun rasheedrozole hs Assessment & Plan (02/10/2021 6:00 PM CDT): Stage I ER/KS + breast cancer s/p L lumpectomy 02/2019 f/b adjuvant anastrazole and radiation - Follows with Dr. Varun Tam anastrozole hs Assessment & Plan (02/09/2021 5:07 PM CDT): Stage I ER/KS + breast cancer s/p L lumpectomy 02/2019 f/b adjuvant anastrazole and radiation - Follows with Dr. Varun burks, change to hs Assessment & Plan (02/07/2021 3:57 PM CDT): -diagnosed 02/2019 with left lumpectomy, invasive ductal carcinoma, grade 1 -completed XRT -remains on anastrazole at this time -follows with Dr. Esposito, oncology following, appreciate recommendations Abnormality of plasma protein 10/11/2018 Microalbuminuria due to type 2 diabetes mellitus ([facility]) 09/30/2018 CKD (chronic kidney disease) stage 2, GFR 60-89 ml/min 10/03/2017 Vitamin D deficiency Resolved Problems Problem Noted Date Diagnosed Date Resolved Date Posterior capsular opacifica tion of both eyes, obscuring vision 03/28/2021 06/29/2023 Assessment & Plan (10/19/2021 2:20 PM CDT): S/p yag OU x 09/2021. IOP normal today. DFE unremarkable. Observe. Assessment & Plan (09/26/2021 10:59 PM CDT): 2wk s/p YAG OU. Vision much improved OU. Pt still notes left eye blurrier than right. Discussed that OS vision limited by known keratopathy. Pt noticing floaters OD, gradually improving. No obvious residual PCO in visual axis. Advised monitoring with time. Advised pt to try her various pairs of OTC readers at home to help with reading. If she is anxious to get glasses, advised that she can go to any optometry/optic shop for MRx and glasses. Pt to see cornea in 12/2021. Assessment & Plan (09/12/2021 5:58 PM CDT): Visually significant PCO both eyes. Evaluated by cornea last week. Ok for YAG OU. Risks, benefits, alternatives of YAG laser capsulotomy discussed with patient including new floaters, increased intraocular pressure, eye pain/redness, and loss of vision. Patient understands the above and agrees to proceed. Assessment & Plan (08/18/2021 3:18 PM STEAM ROOM ATTENDANT): Return for next available YAG procedure slot for OD. Will plan for OS as soon as stable from cornea perspective. Assessment & Plan (03/28/2021 4:42 PM CDT): Appear visually significant- best corrected to 20/50 OD, OS with refraction today. 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 Consider YAG once anterior surface and zoster dermatitis is improved. Encounters Date Type Department Care Team Description 05/30/2024 Orders Only [facility] Physicians [facility] [address] Hematology [address] [facility] [address] [place] [address] Provider, MD Crys from Last 3 Months Immunizations Name Administration Dates Next Due Influenza, Quadrivalent, Zoila l Culture-based MDCK, Preservative Free, Antibiotic Free, Intramuscular 04/15/2019 Influenza, Quadrivalent, Hig h Dose, Preservative Free, Intrr 04/07/2021 Influenza, Quadrivalent, Spl it, Preservative Free, Intramuscular 05/14/2018 Influenza, Trivalent, High D ose, Split, Preservative Free, Intramuscular 05/14/2018 Influenza, Unspecified 03/11/2022,05/14/2018,06/2017 Surgical History Surgery Date Site/Laterality Comments APPENDECTOMY ECTOPIC GALLBLADDER SURGERY SMALL INTESTINE SURGERY LUMBAR PUNCTURE WO INJECTION, DIAGNOSTIC 02/11/2021 N/A LUMBAR PUNCTURE WO INJECTION, DIAGNOSTIC 09/08/2022 N/A NERVE BLOCK BRACHIAL PLEXUS Medical History Medical History Date Comments Diabetes mellitus (HCC) Hypercholesteremia Hypertension Thyroid disease Breast cancer (HCC) Shingles Bullous pemphigoid Family History Medical History Relation Name Comments Heart failure Brother Pancreatic cancer Brother Kidney failure Father Stroke Maternal Grandfather Heart failure Maternal Grandmother Relation Name Status Comments Brother Father Maternal Grandfather Maternal Grandmother Social History Tobacco Use Types Packs/Day Years Used Date Smoking Tobacco: Former Cigarettes 0.5 15 1 970 - 1985 Smokeless Tobacco: Never Tobacco Cessation:Counseling Given: Not Answered Alcohol Use Standard Drinks/Week Comments Not Currently 0 (1 standard drink = 0.6 oz pur e alcohol) Social Connection and Isolat ion Panel [NHANES] Answer Date Recorded In a typical week, how many times do you talk on the phone with family, friends, or neighbors? More than three times a week 09/14/2022 How often do you get togethe r with friends or relatives? More than three times a week 09/14/2022 How often do you attend chur ch or yarsanism services? Never 09/14/2022 Do you belong to any clubs o r organizations such as bahai groups, unions, fraternal or athletic groups, or school groups? No 09/14/2022 How often do you attend meet ings of the clubs or organizations you belong to? Never 09/14/2022 Are you , , di vorced, , never , or living with a partner? 09/14/2022 AUDIT-C Answer Date Recorded Q1: How often do you have a drink containing alc ohol? Monthly or less 10/15/2023 Q2: How many drinks containi ng alcohol do you have on a typical day when you are drinking? 1 or 2 10/15/2023 Q3: How often do you have si x or more drinks on one occasion? Never 10/15/2023 Overall Financial Resource Strain (CARDIA) Answe r Date Recorded How hard is it for you to pa y for the very basics like food, housing, medical care, and heating? Not hard at all 09/14/2022 Hunger Vital Sign Answer Date Recorded Within the past 12 months, y ou worried that your food would run out before you got the money to buy more. Never true 09/17/19 24 Within the past 12 months, t he food you bought just didn't last and you didn't have money to get more. Never true 09/17/2023 PRAPARE - Transportation Answer Date Re corded In the past 12 months, has l ack of transportation kept you from medical appointments or from getting medications? No 11/2022 In the past 12 months, has l ack of transportation kept you from meetings, work, or from getting things needed for daily living? No 09/14/2022 Housing Stability Vital Sign Answer Jose M e Recorded In the last 12 months, was t here a time when you were not able to pay the mortgage or rent on time? No 09/14/2022 In the last 12 months, how many places have you lived? 1 09/14/2022 In the last 12 months, was t here a time when you did not have a steady place to sleep or slept in a fdc (including now)? No 09/14/2022 Personal Safety Answer Date Recorded Have you ever been in or are you currently in a harmful physical or emotional relationship or is someone making you feel afraid or unsafe? 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 Gender Identity Not on file Sexual Orientation Not on file Obstetrics History Last Filed Vital Signs Vital Sign Reading Time Taken Comments Blood Pressure 144/66 02/01/2024 3:28 PM CDT Pulse 84 02/01/2024 3:28 PM CDT Temperature 36.4 ??C (97.6 ??F) 02/01/2024 2:42 PM CD T Respiratory Rate 16 02/01/2024 3:28 PM CDT Oxygen Saturation 96% 02/01/2024 3:28 PM CDT Inhaled Oxygen Concentration - - Weight 58.1 kg (128 lb) 01/28/2024 3:42 PM CDT Height 162.6 cm (5' 4 ) 01/28/2024 3:42 PM CDT Body Mass Index 21.97 01/28/2024 3:42 PM CDT Plan of Treatment Health Maintenance Due Date Last Done Comments Depression Screening 1952 Hepatitis C Screening 1950 Osteoporosis Screening-Bone Density Scan 1952 Foot Exam 1952 Hepatitis B Screening 1970 Zoster Vaccine (1 of 2) 1971 Well Visit 65+ 2017 Hemoglobin A1C 01/10/2023 07/13/2022, 02/09, 02/09/2021, Additional history exists Albumin Creatinine Ratio, Urine 07/14/2023 Covid-19 Vaccine (2023-2 5 season) 2024 01/11/2022, 02/24/2021, 08/19/2020, Additional history exists Influenza Vaccine (#1) 2024 , 04/05/2022, 03/11/2022, Additional history exists Dilated Eye Exam 06/28/2024 06/28/2023, , 01/09/2022, Additional history exists Lipid Panel 11/29/2024 11/30/2023, 11/09, 09/07/2022, Additional history exists eGFR 01/21/2025 01/22/2024, 12/10, 07/19/2023, Additional history exists Fall Risk Assessment 01/31/2025 02/01/2024, 10/25/2023, 10/02/2023, Additional history exists Breast Cancer Screening-Mammogram 05/28/2025 024, 01/17/2022 DTaP/Tdap/Td Vaccine (2 - Td or Tdap) 10/17/2031 10/16/2021 Colon Cancer Screening-Colonoscopy 05/25/2032 05/25/2022 Pneumococcal vaccine 65+ Completed 07/05/2021, 06/11 Colon Cancer Screening-CT Colonography Discontinued 05/25/2022 Colon Cancer Screening-DNA Stool Discontinued 05/25/20 Colon Cancer Screening-FIT Discontinued 05/25/2022 Colon Cancer Screening-Sigmoidoscopy Discontinued 05/25/2022 Goals Goal Patient Goal Type Associated Problems Recent Progress Patient-Stated? Author CCM Chronic Pain Care Plan Chronic Care Management No change(10/24 1:36 PM CDT) No Kareen Hopkins, RN Note: Problem: Chronic Pain Goals: 1. Minimize further functional decline 2. Maximize quality of life 3. Control pain Strategies: - Activity/exercise program recommendation - Conservative stepwise pain medicine strategy with multi-disciplinary approach - Recommend healthy lifestyle strategies and compensatory methods as needed Procedures Procedure Name Priority Date/Time Associated Diagnosis Comments SCREENING MAMMOGRAM Schedule Routine, Read Routine (OP Routine) 05/28/2024 8:53 AM STEAM ROOM ATTENDANT RENAL FUNCTION PANEL Routine 01/22/2024 2:15 PM CDT CKD (chronic kidney disease) stage 2, GFR 60-89 ml/min LIPID PANEL STAT 09/07/2022 2:11 PM CDT ALBUMIN CREATININE RATIO, URINE Routine 07/14/2022 6:07 AM STEAM ROOM ATTENDANT HEMOGLOBIN A1C Routine 07/13/2022 6:18 AM STEAM ROOM ATTENDANT COLONOSCOPY Routine 05/25/2022 3:44 PM STEAM ROOM ATTENDANT from Last 3 Months or Most Recently Relevant to Health Maintenance Results * Screening Mammogram (05/28/2024 8:53 AM STEAM ROOM ATTENDANT) Anatomical Region Laterality Modality Breast N/A Mammography us Historical Provider MD CONNER MAMMO PROCEDURES Shelbie l Result * (ABNORMAL) Renal function panel (01/22/2024 2:15 PM CDT) Glucose 217(H) 65 - 99 mg/dL [email or web address] Comment: ? Fasting reference interval For someone without known diabetes, a glucose value >125 mg/dL indicates that they may have diabetes and this should be confirmed with a follow-up test. BUN 21 7 - 25 mg/dL [facility] Mont[facility] Creatinine 1.21(H) 0.60 - 1.00 mg/dL [facility] Montes eGFR 48(L) > OR = 60 mL/min/1.7 3m2 [facility] Mont[facility] BUN/creat ratio 17 6 - 22 (calc) [email or web address]el[facility] Montes Sodium 137 135 - 146 mmol/L [email or web address]elario Montes Potassium, pl 3.8 3.5 - 5.3 mmol/L [email or web address]el[facility] Montes Chloride 101 98 - 110 mmol/L [facility] Montes CO2 27 20 - 32 mmol/L [facility] Calcium 9.4 8.6 - 10.4 mg/dL [facility] Montes Phosphorus, sr 2.9 2.1 - 4.3 mg/dL [email or web address] Albumin 3.9 3.6 - 5.1 g/dL [facility] Montes Blood 01/22/2024 2:15 PM CDT 01/22/2024 2:15 PM CDT Narrative [facility] - 01/23/2024 9:54 AM CDT PATIENT UNABLE TO VOID; ADVISED TO RETURN FOR COLLECTION. Mandi Smith MD LAB BLOOD ORDERABLES Final Result [facility] [address] [place] [address] * (ABNORMAL) Lipid panel (09/07/2022 2:11 PM CDT) Cholesterol 98 30 - 199 mg/dL JUST[facility] Comment: Interpretive Data Ages < or = 19 years ??Acceptable: ? <170 mg/dL ??Borderline high: ??170-199 mg/dL ??High: ? >or= 200 mg/dL Ages > or = 20 years ??Desirable: ?<200 mg/dL ??Borderline high: ??200-239 mg/dL ??High: ? >or= 240 mg/dL Literature References: 1. Expert Panel on Integrated Guidelines for Cardiovascular Health and Risk Reduction in Children and Adolescents. Pediatrics 2011;128:S213 2. NCEP Expert Panel. Circulation 2004;110:227 Current Interpretive Data was last revised on 2018. Triglycerides 318(H) <=149 mg/dL JUSTINA MABRY Comment: Interpretive Data Ages < or = 9 years ??Acceptable: ? <75 mg/dL ??Borderline high: ??75-99 mg/dL ??High: ? >or= 100 mg/dL Ages 10 to 20 years ??Acceptable: ? <90 mg/dL ??Borderline high: ??90-129 mg/dL ??High: ? >or= 130 mg/dL Ages > or = 20 years ??Desirable: ?<150 mg/dL ??Borderline high: ??150-199 mg/dL ??High: ? 200-499 mg/dL ?Very high: ?? >or= 499 mg/dL Literature References: 1. Expert Panel on Integrated Guidelines for Cardiovascular Health and Risk Reduction in Children and Adolescents. Pediatrics 2011;128:S213 2. NCEP Expert Panel. Circulation 2004;110:227 Current Interpretive Data was last revised on 2018. HDL 16(L) >=40 mg/dL JUSTINA MABRY Comment: Interpretive Data Ages < or = 19 years ??Acceptable: ? >45 mg/dL ??Borderline low: ?? 40-45 mg/dL ??Low: ? <40 mg/dL Ages > or = 20 years ??Desirable: ?>or= 60 mg/dL ??Low: ? <40 mg/dL Literature References: 1. Expert Panel on Integrated Guidelines for Cardiovascular Health and Risk Reduction in Children and Adolescents. Pediatrics 2011;128:S213 2. NCEP Expert Panel. Circulation 2004;110:227 Current Interpretive Data was last revised on 2018. LDL, calculated 18 <=129 mg/dL [facility] Comment: Interpretive Data Ages < or = 19 years ??Acceptable: ? <110 mg/dL ??Borderline high: ??110-129 mg/dL ??High: ?>or= 130 mg/dL Ages > or = 20 years ??Optimal: ? <100 mg/dL ??Near optimal: ?100-129 mg/dL ??Borderline high: ?? 130-159 mg/dL ??High: ?>160 mg/dL Literature References: 1. Expert Panel on Integrated Guidelines for Cardiovascular Health and Risk Reduction in Children and Adolescents. Pediatrics 2011;128:S213 2. NCEP Expert Panel. Circulation 2004;110:227 Current Interpretive Data was last revised on 2018. Non-HDL Cholesterol 82 mg/dL [facility] Comment: Interpretive Data Ages < or = 19 years ??Acceptable: ?<120 mg/dL ??Borderline high: ??120-144 mg/dL ??High: ?>145 mg/dL Ages > or = 20 years ??When triglycerides are >200 mg/dL, Non-HDL cholesterol is a secondary target of ? therapy with treatment goals that are 30 mg/dL greater than the LDL cholesterol target. ? Literature References: 1. Expert Panel on Integrated Guidelines for Cardiovascular Health and Risk Reduction in Children and Adolescents. Pediatrics 2011;128:S213 2. NCEP Expert Panel. Circulation 2004;110:227 Current Interpretive Data was last revised on 2018. Chol/HDL ratio 6 [facility] Blood 09/07/2022 2:11 PM CDT 09/07/2022 2:24 PM CDT us Laura Verduzco MD LAB BLOOD ORDERABLES Fi nal Result [facility] Department [place] [address] * (ABNORMAL) Albumin Creatinine Ratio, Urine (07/14/2022 6:07 AM STEAM ROOM ATTENDANT) Albumin Ur 96.9 mg/L JUSTINA Comment: Interpretive Data No reference range established. Current interpretive data was last revised 2018. Testing performed by: [address] [address] Creatinine Ur 84.0 mg/dL JUSTINA Comment: Interpretive Data No reference range established. Current interpretive data was last revised 2018. Testing performed by: [address] [address] Albumin Creatinine Ratio, Ur 115(H) 1 - 29 mg/g [facility] Comment:Testing performed by : [address] [address] Urine 07/14/2022 6:07 AM STEAM ROOM ATTENDANT 07/14/2022 6:10 AM STEAM ROOM ATTENDANT us Bret Woodruff MD LAB URINE ORDERABLES Final Result Performing Organization Address City/[facility] [address]/[facility] Co de Phone Number [facility] [address] [facility] Department [place] [address] * (ABNORMAL) Hemoglobin A1c (07/13/2022 6:18 AM STEAM ROOM ATTENDANT) Hgb A1C 9.2(H) 4.0 - 5.6 % JUSTINA Comment:Testing performed by : [address] [address] Estimated Average Glucose 217 mg/dL [facility] Comment: The ADA recommends reporting an estimated Average Glucose (eAG) with all Hemoglobin A1c results using the equation derived from a study of 507 normal and diabetic adults. ??Minority populations were underrepresented and children were not included. ?? (Diabetes Care 31:9911-6257, 2008). ??The eAG is not equivalent to a fasting glucose. Testing performed by: [facility], [address] [place] [address]., [id number] Blood 07/13/2022 6:18 AM STEAM ROOM ATTENDANT 07/13/2022 6:44 AM STEAM ROOM ATTENDANT Bret Woodruff MD LAB BLOOD ORDERABLES Final Result [facility] [address] [facility] Department [place] [address] * Colonoscopy (05/25/2022 3:44 PM STEAM ROOM ATTENDANT) Anatomical Region Laterality Modality Other Historical Provider ENDOSCOPY PROCEDURES Shelbie l Result from Last 3 Months or Most Recently Relevant to Health Maintenance Additional Health Concerns Infection Onset Date Last Indicated MDR gram neg/ESBL 04/07/2022 07/12/2022 Insurance [facility] MEDICARE [facility] MEDICARE AETNA MEDICARE AETNA MEDICARE Advance Directives For more information, please contact: [phone] * LIMITED - No CPR (Latest Code Status on File) Date Activated Date Inactivated Comments 09/08/2022 8:53 PM 09/13/2022 9:14 PM Question Answer Comments Provide aggressive medical m anagement before a full cardiopulmonary arrest occurs. Use antibiotics, IV Fluids, and medical treatment unless specifically selected below: No intubation * Full Code Date Activated Date Inactivated Comments 09/08/2022 8:46 PM 09/08/2022 8:53 PM * LIMITED - No CPR Date Activated Date Inactivated Comments 09/08/2022 8:35 PM 09/08/2022 8:46 PM Question Answer Comments Provide aggressive medical m anagement before a full cardiopulmonary arrest occurs. Use antibiotics, IV Fluids, and medical treatment unless specifically selected below: No intubation * LIMITED - No CPR Date Activated Date Inactivated Comments 07/12/2022 6:08 PM 07/14/2022 5:31 PM Question Answer Comments Provide aggressive medical m anagement before a full cardiopulmonary arrest occurs. 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 Relationship Specialty Start Date End Date Akhil Jay DO PCP - General Family Medicine 10/16/18 Sada Woodard DO Internal Medicine 10/07/18 Redd Leary MD [address] [place] [address] [address] [place] [address] Surgeon General Surgery 04/27/21 Donna Mayberry NP [address] [place] [address] [id number] Nurse Practitioner Medical Oncology 01/03/23 Irina Hazel MD [address] [place] [address] [id number] Consulting Physician Pain Management 10/02/23 Josefa Alvarado MD [address] [place] [address] [address] [place], [place] [id number] Radiation Oncologist Radiation Oncology 01/03/24
--- OUTSIDE RECORDS SUMMARY | 2024-07-05 11:19 | XMS_ITS | Continuity of Care Document ---
Author Organization [facility] Address [address] [place] [address] Phone Care Team Providers Care Local Company Intermodal Truck Driver Name Role Phone Ha Hernandez MD, FACS Unavailable Unavailab le Allergies, Adverse Reactions, Alerts Substance Reaction Status Criticality No Known Allergies Active No Inform ation Medications Medication Instructions Dosage Effective Dates (start - stop) Status Comments Tirosint 88 mcg capsule take 1 capsule by oral route every day 88 MCG - Active metoprolol succinate ER 100 mg tablet,extended release 24 hr take 1 tablet by oral route every day 100 MG - Active metformin 500 mg tablet take 1 tablet by oral route 2 times every day with morning and evening meals 500 MG - Active lansoprazole 30 mg capsule,delayed release take 1 capsule by oral route every day before a meal 30 MG - Active Invokana 100 mg tablet take 1 tablet by oral route every day before the first meal of the day 100 MG - Active glyburide 5 mg tablet take 1 tablet by o ral route every day before breakfast 5 MG - Active fenofibrate 160 mg tablet take 1 tablet by oral route every day 160 MG - Active aspirin 81 mg tablet,delayed release take 1 tablet by oral route every day 81 MG - Active amlodipine 5 mg tablet take 1 tablet by oral route every day 5 MG - Active Procedures Procedure Date Refraction Fundus Photography W/ Report Eye Exam Established Pt Refraction Post-op Follow-up Visit Post-op Follow-up Visit Remove Cataract, Insert Lens No Charge Refraction Post-op Follow-up Visit Post-op Follow-up Visit Remove Cataract, Insert Lens IOLMaster IOLMaster Office/outpatient Visit, New No Charge Orbscan No Charge Refraction No Charge Optomap Fundus Photos 018 Office/outpatient Visit, Est Advance Directives Directive Yes / No Effective Date File Name No Information Encounters Encounter Description Practice Location Reason(s) For Visit Diagnoses Date Provider Providers Copied on Encounter [facility], [address], [place], [place], [address], [place] tel:[phone] SEC Roberot Carlos VELEZ Professional 6 month IOL check (chief complaint) Other secondary cataract, bilateralPres ence of intraocular lensType 2 diabetes mellitus without complications [address] Mary Bonner. [address], [place], [place], [address], . tel:[phone] Referring Provider: Ha Hernadez, [address], [place], [address] . tel:[phone] [facility], [address], [place], [place], [address], [place] tel:[phone] SEC Roberto Carlos VELEZ Professional No Information 8 Mary Bonner. [facility] [employer], [address], [place], [place], [address], [place]. tel:[phone] [facility], [address], [place], [place], [address], [place] tel:[phone] SEC Roberto Carlos VELEZ Professional 2 week s/p PCIOL (chief complaint) Follow-up examination after eye surgery 8 Mary Bonner. [address], [place], [place], [address], [place]. tel:[phone] Referring Provider: Ha Hernadez, [address], [place], [address] . tel:[phone] [facility], [address], [place], [place], [address], [place] tel:[phone] SEC [place] Professional Follow up visit (chief complaint) Follow-up examination after eye surgery 8 Noe Luis. [address] [facility] [address] [facility], [address], [place], [address], [place]. tel:[phone] Referring Provider: Ha Hernadez, [address], [place], [address] . tel:[phone] [facility], [address], [place], [place], [address], [place] tel:[phone] [facility] No Information 8 Mary Bonner. [address] [employer] [address], [address], [place], [place], [address], [place]. tel:[phone] Referring Provider: Ha Hernadez, [address], [place], [address] . tel:[phone] [facility], [address], [place], [place], [address], [place] tel:[phone] [place] Professional Post-Op (chief complaint) Follow-up examination after eye surgery 8 Mary Bonner. [address] [employer] [address], [address], [place], [place], [address], [place]. tel:[phone] Referring Provider: Ha Hernadez, [address], [place], [address] . tel:[phone] [facility], [address], [place], [place], [address], [place] tel:[phone] SEC [place] Professional 1 day p/o (chief complaint) Follow-up examination after eye surgery 8 Raul Caballero. [address] [place], [address], [place]. tel:[phone] Referring Provider: Ha Hernadez, [address] [place] [address] [employer] [address], [place], [address] . tel:[phone] [facility], [address] [place] [address] [address], [place], [place], [address], [place] tel:[phone] [facility] No Information [address] Mary Bonner. [address] [place] [address] [employer], [address], [place], [place], [address], [place]. tel:[phone] Referring Provider: Ha Hernadez, [address] [place] [address] [employer] [address], [place], [address] . tel:[phone] Office/outpa tient Visit, [facility], [address] [place] [address] [address], [place], [place], [address], [place] tel:[phone] SEC [facility] Professional Complete Exam (chief complaint) Age-related nuclear cataract, right eyeAge-relate d nuclear cataract, left eyeType 2 diabetes mellitus without complications Pseudoexfolia tion (PXF) of lens capsule 8 Mary Bonner. [address] [employer], [address], [place], [place], [address], [place]. tel:[phone] Referring Provider: Ha Hernadez, [address] [place] [address] [facility] [address], [place], [address] . tel:[phone] Office/outpa tient Visit, [facility], [address] [place] [address] [address], [place], [place], [address], [place] tel:[phone] [facility] No Information 8 Joseph Napier. [address], [address], [place]. tel:[phone] Family History Family Member Type Diagnosis Age At Onset Problem (finding) Family history of Diabe sam mellitus Problem (finding) Family history of degenerative disorder of macula Payers Payer name Insurance type Covered democrat ID Sangeetha mayorga(s) [place] [id number] Social History Type Description Quantity Date Captured Comments Alcohol Use Details No Caffeine Use Details 2 cups per day Tobacco Use Status Current non-smoker 19 Smoking Status Never smoker Non-Smoking Tobacco Use Details : No Details Available : No Details Available Sex Female Chief Complaint And Reason For Visit From encounter dated '06/18/2018 09:00'. 6 month IOL check (chief complaint). Description: The 67 year old female presents for evaluation of6 month IOL check in the right eye and left eye. Hx of PCIOL OU. Patient denies any problems or changes with VA. Patient is a Type 2 diab x 10 years, NOT on Insulin, BS checked yesterday @ 112, a1c 7.2, and PCP treats her diab. Patient REFUSES to have a LASER done even if needed. Reason For Referral Reason For Referral No Information Plan Of Treatment Date Type Action Status Patient Education Learning About YAG Lase r Capsulotomy completed History Of Present Illness Encounter Date Complaint History Of Prese nt Illness 6 month IOL check The 67 year ol d female presents for evaluation of 6 month IOL check in the right eye and left eye. Hx of PCIOL OU. Patient denies any problems or changes with VA. Patient is a Type 2 diab x 10 years, NOT on Insulin, BS checked yesterday @ 112, a1c 7.2, and PCP treats her diab. Patient REFUSES to have a LASER done even if needed. 2 week s/p PCIOL The 67 year old female presents for evaluation of 2 week s/p PCIOL in the right eye. Patient states VA blurry and she is unable to read small print. Patient still using her 2 p/o gtts as directed in the right eye. BS was checked yesterday @ 147, A1C 6.7, and Dr. Rose takes care of her diab. Follow up visit The patient pres ents for a 1 day PO s/p phaco with PCIOL OD. The patient states the eye itched last night and that vision is okay. The patient does not state any discomfort today. The patient is currently using pred QID, poly QID and ketorolac TID OD. Post-Op The 67 year old female presents for a 3 week post op CE OS. Patient is using Pred bid OS and Ketorolac bid OS. Patient is here for a 90 day rule cataract evaluation OD. Patient c/o blurry vision OD and patient notices a difference between eyes. Patient denies any pain or discomfort. 1 day p/o The 67 year old female presents for evaluation of 1 day p/o PCIOL in the left eye. Patient doing fine. Came in with gtts Poly, Pred, and Ketorolac to use as instructed as well as eye shield. Complete Exam The 67 year old female presents for evaluation of Complete Exam in the right eye and left eye. Hx of CAT OU. Pt is NIDDM II x 8 yrs. Pt's PCP, RESEARCH EPIDEMIOLOGIST, Dr. Shey Rose follows DM. Pt reports BS was 102 last night and A1C was 6.7 around March 2017. Pt reports BS is high in the am and levels out after breakfast. Pt reports she avoids driving at night due to poor vision, OU, x couple yrs and gradually getting worse. Pt reports she can see NV, without gls, but she has to have a lot of light. Pt reports she wears DVO, because bifocals make her sick. Pt reports another Dr screwed up her husbands CE, so she didn't want to go to them. Pt reports she doesn't use any gtts and no pain, irritation or discomfort today, OU. Functional Status Date Functional Assessmen t No Information Instructions Date Instruction Additional Infor quinton Impression/Plan Impression/Plan Impression/Plan Impression/Plan Impression/Plan Impression/Plan Letter sent to PCP/Specialist Re lated to Type 2 diabetes mellitus without complications Assessments Type Assessment Date assessment Other secondary cataract, bilate ral assessment Presence of intraocular lens Jun assessment Type 2 diabetes mellitus without complications Patient Care Teams Name Effective Dates (start - stop) Status Members No Information
--- OUTSIDE RECORDS SUMMARY | 2024-07-05 11:19 | XMS_ITS | Clinical Summary ---
Author Organization [facility] [employer] Address [address] [place] [address] Care Team Providers Care Penology Professor Name Role Phone Akhil Jay DO Primary Care Provider + Source Comments [facility],non-owned Affiliates and Associated Physician Practices is amultiple site organization consisting of ambulatory clinics and hospital sitesin [place], [place], [place] and [place]. This disclosure is being madepursuant to the Care Everywhere program and may not contain all information available regarding this patient. Last updated 18.[facility] Social History Tobacco Use Types Packs/Day Years Used Date Smoking Tobacco: Never Assessed Sex and Gender Information Value Date Recorded Sex Assigned at Not on file Gender Identity Not on file Sexual Orientation Not on file Plan of Treatment Health Maintenance Due Date Last Done Comments BONE DENSITY TESTING 1950 COLOGUARD (AGES 45-75) - COL ON CA SCREENING 1952 COLON MONITORING 1952 COLONOSCOPY - COLON CA SCREENING 1952 CT COLONOGRAPHY - COLON CA SCREENING 1950 Colorectal Cancer Screening 1952 FIT - COLON CA SCREENING 1952 FLEX SIG - COLON CA SCREENING 1952 LIPID TESTING 1952 MAMMOGRAM 1952 HEPATITIS C SCREENING 07/13/1970 DTAP/TDAP/TD VACCINES (1 - Tdap) 1971 PNEUMOCOCCAL VACCINE 50+ (1 of 1 - PCV) 2002 ZOSTER VACCINE (1 of 2) 2002 COVID-19 VACCINE ( - 2023-2 5 season) 2024 INFLUENZA VACCINE (#1) 2024 DEPRESSION SCREENING 06/11/2024 MEDICARE AWV ? CALENDAR YEAR 2024 Respiratory Syncytial Virus (RSV) Vaccine Pt: or over 60 yrs (1 - 1-dose 75+ series) 2027 HEPATITIS B VACCINE Aged Out No longe r eligible based on patient's age to complete this topic HIB VACCINE Aged Out No longer eligi ble based on patient's age to complete this topic HPV VACCINE Aged Out No longer eligi ble based on patient's age to complete this topic MENINGOCOCCAL (Group B) VACCINE Aged Out No longer eligible based on patient's age to complete this topic MENINGOCOCCAL VACCINE Aged Out No teofilo deedee eligible based on patient's age to complete this topic Care Teams Penology Professor Relationship Specialty Start Date End Date Akhil Jay DO [address] [place] [address] PCP - General 05/31/22
--- OUTSIDE RECORDS SUMMARY | 2024-07-05 11:19 | XMS_ITS ---
Author Organization [facility] [address] [facility] Address [address] [place] [address] Care Team Providers Care Show Card Writer Name Role Phone Sada Woodard DO Unavailable [phone] Akhil Jay DO Primary Care Provide r Redd Leary MD Unavailable [phone] Donna Mayberry FUNDRAISING CONSULTANT Unavailable [phone] Irina Hazel MD Unavailable Josefa Alvarado MD Unavailable [phone] Active Problems Patient Care Coordination No te [...] 06/27/2022 Assessment & Plan (06/27/2022 10:29 AM APPLICATION PACKAGER): Epilated multiple lashes at slit lamp. Neutropenia 03/23/2022 Generalized weakness 02/22/2022 JOANNE (acute kidney injury) 02/22/2022 Pseudophakia of both eyes 01/26/2022 Assessment & Plan (01/26/2022 1:52 PM CDT): SRx given Intermediate stage nonexudat juli age-related macular degeneration of both eyes 11/28/2021 Assessment & Plan (06/29/2023 8:41 AM APPLICATION PACKAGER): Doing well with AREDS2 vitamins. Stable. Assessment [...] notes: Assessment & Plan (06/23/2022 1:26 PM APPLICATION PACKAGER): She has no active scleritis today. Continue [...] Encouraged pt to discuss skin pain with cork floor installer and/or PCP. Recommended pt go to ER with worsening of pain or vision changes. Pt scheduled to see Dr. Montilla on Sunday10/24/2021. Neurotrophic keratitis of left eye 09/09/2021 Assessment & Plan (06/29/2023 8:41 AM APPLICATION PACKAGER): Extensive history of HZO OS, bullous pemphigoid, [...] continue this. Continue moxifloxacin TID OS. Recommended multimedia developer use of press n seal wrap over [...] reduced acuity. Start moxifloxacin TID OS. Recommended multimedia developer tape tarsorrhaphy, removing tape only for drop instillation. Demonstrated proper taping technique in office today. Close follow up with cornea service warranted. Will have patient seen for follow up in [facility] in [address] Tobias. Assessment [...] exam. Assessment & Plan (06/23/2022 1:47 PM APPLICATION PACKAGER): h/o HZO OS (11/2020) c/b neurotrophic keratitis, [...] OS. Assessment & Plan (08/18/2021 3:21 PM APPLICATION PACKAGER): H/o HZ conjunctivitis without corneal lesions. Complicated course for HZ dermatitis that did not resolve, and was recently diagnosed with bullous pemphigoid lesions on her forehead and scalp. Continue aggressive lubrication OS. Will arrange for next available cornea appointment to r/o ocular involvement from pemphigoid. Herpes zoster without complication 04/29/2021 Assessment & Plan (07/05/2021 1:14 PM APPLICATION PACKAGER): - Will continue patients valacyclovir 1g TID [...] concerns. Assessment & Plan (05/26/2021 8:47 AM APPLICATION PACKAGER): - Pt's ophthalmology appointment rescheduled for 05/30, [...] concerns. Assessment & Plan (04/29/2021 12:27 PM APPLICATION PACKAGER): - Pt with upcoming ophthalmology appointment for [...] 04/05/2021 Assessment & Plan (04/29/2021 12:27 PM APPLICATION PACKAGER): - Continue IV ceftriaxone 2g q24 hrs [...] uptitrate as needed -Continue ASA for now. [id number] score of 4 and if recurrent episodes [...] time. Herpes zoster conjunctivitis of left eye Assessment & Plan (09/09/2021 9:30 PM CDT): If painful can consider lidocaine or caspacin gel to skin. Assessment & Plan (07/07/2021 4:12 PM APPLICATION PACKAGER): With h/o encephalopathy. Eye involvement was limited [...] prn. Assessment & Plan (05/30/2021 3:24 PM APPLICATION PACKAGER): With + hx encephalopathy, only conjunctivitis. No [...] 03/14/2021 Assessment & Plan (06/29/2023 8:42 AM APPLICATION PACKAGER): Strict BS control, annual dilated eye exams recommended. Assessment & Plan (08/18/2021 3:18 PM APPLICATION PACKAGER): Strict BS control, annual dilated eye exams [...] Cefepime per ID --Completed dexamethasone --Repeat LP 02/11 per ID & neuro in IR. Fluid [...] ID --Continue Acyclovir --Completed dexamethasone --Repeat LP 02/11 per ID & neuro in IR. 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) for confusion. - OSH CT head reported [...] trigger for PRES remains unclear, and no BRICK WHEELER toxicity has been reported with dupixent, I would not disregard it as a potential offender/contributor to her clinical syndrome given the temporal relationship between it's use and the onset of symptoms-->defer to pt's cork floor installer to determine if alternative agents should be [...] time. Please contact the Team 3 ID FUNDRAISING CONSULTANT M-F, 8-4; or the Attending at the phone numbers in care team with any questions or concerns. After hours, please contact the ID fellow transition mgr. Assessment & Plan (02/09/2021 5:16 PM CDT): [...] a prior issue. Would also defer to cork floor installer given h/o bullous pemphigoid. Return in 2 [...] bullous pemphigoid will touch base with patients cork floor installer as well. MGUS (monoclonal gammopathy of unknown [...] Cancer Staging:Pathologic:Stage IA(pT1c, pN0, cM0, G1, ER+, CA-, HER2-) - Signed by Yareli Vasquez PA on 04/27/2021 Assessment & Plan (04/05/2021 9:32 PM CDT): -s/p lumpectomy and XRT -Continue anastrozole -Follows with Dr. Esposito of [facility] oncology Assessment & Plan (02/15/2021 11:17 AM CDT): Stage I ER/CA + breast cancer s/p L lumpectomy 02/2019 f/b adjuvant anastrazole and radiation - Follows with Dr. Varun Tam anastrozole hs Assessment & Plan (02/14/2021 12:58 PM CDT): Stage I ER/CA + breast cancer s/p L lumpectomy 02/2019 f/b adjuvant anastrazole and radiation - Follows with Dr. Varun Tam anastrozole hs Assessment & Plan (02/13/2021 1:09 PM CDT): Stage I ER/CA + breast cancer s/p L lumpectomy 02/2019 f/b adjuvant anastrazole and radiation - Follows with Dr. Varun Tam anastrozole hs Assessment & Plan (02/12/2021 12:59 PM CDT): Stage I ER/CA + breast cancer s/p L lumpectomy 02/2019 f/b adjuvant anastrazole and radiation - Follows with Dr. Varun Tam anastrozole hs Assessment & Plan (02/11/2021 2:06 PM CDT): Stage I ER/CA + breast cancer s/p L lumpectomy 02/2019 f/b adjuvant anastrazole and radiation - Follows with Dr. Varun - Continue anastrozole hs Assessment & Plan (02/10/2021 6:00 PM CDT): Stage I ER/CA + breast cancer s/p L lumpectomy 02/2019 f/b adjuvant anastrazole and radiation - Follows with Dr. Bond - Continue anastrozole hs Assessment & Plan (02/09/2021 5:07 PM CDT): Stage I ER/CA + breast cancer s/p L lumpectomy 02/2019 f/b adjuvant anastrazole and radiation - Follows with Dr. Bond - Continue anastrozole, change to hs Assessment & Plan (02/07/2021 3:57 PM CDT): -diagnosed 02/2019 with left lumpectomy, invasive ductal carcinoma, grade 1 -completed XRT -remains on anastrazole at this time -follows with Dr. Esposito, oncology following, appreciate recommendations Abnormality of plasma protein 10/11/2018 Microalbuminuria due to type 2 diabetes mellitus ([facility]) 09/30/2018 CKD (chronic kidney disease) stage 2, GFR 60-89 ml/min 10/03/2017 Vitamin D deficiency Current Oncology Plans No current plan information found. Other Current Plans LIDOCAINE INFUSION* Plan Start Date:08/13/2023 Plan Provider:Corinne Mcgraw MD Linked Problems Post herpetic neuralgia Treatment Medications No medications scheduled. Past Plans No past plan information found. Radiation Treatments * No radiation treatments are documented for this patient in [facility]. Treatments may have been administered in another system. Lifetime Dose Tracking * Chemical Lifetime Dose Automatic Entry Manual Entr y Fluoro Time 0.817 minutes 0.817 minutes 0 minutes Air kerma at the reference point (Ka,r) 8.53 mGy 8 .53 mGy 0 mGy DLP 2,520.6 mGycm 2,520.6 mGycm 0 mGycm Resolved Problems Problem Noted Date Diagnosed Date [...] proceed. Assessment & Plan (08/18/2021 3:18 PM APPLICATION PACKAGER): Return for next available YAG procedure slot [...]
--- OUTSIDE RECORDS SUMMARY | 2024-07-05 11:19 | XMS_ITS | Encounter Summary ---
Author Organization [facility] Address [address] [place] [address] Phone Care Team Providers Care Senior Paralegal Name Role Phone Akhil Jay DO Unavailable [phone] Sada Woodard DO Unavailable [phone] Akhil Jay DO Primary Care Provide r Varun Dunn MD, Clemente Unavailable + [phone] Sarah Rowell RN Unavailable Sarah Rowell RN Unavailable [phone] Josefa Alvarado MD Unavailable +[phone] Redd Leary MD Unavailable +[phone] Jessica Henriquez RN Unavailable [phone] Donna Mayberry NP Unavailable + [phone] Irina Hazel MD Unavailable Josefa Alvarado MD Unavailable +[phone] Encounter Details Date Type Department Care Team (Late st Contact Info) Description 01/24/2021 Orders Only [facility] Scanning, Provider Social History Tobacco Use Types Packs/Day Years Used Date Smoking Tobacco: Former Cigarettes 0.5 15 1 970 - 1985 Smokeless Tobacco: Never Alcohol Use Standard Drinks/Week Comments Not Currently 0 (1 standard drink = 0.6 oz pur e alcohol) AUDIT-C Answer Date Recorded Frequency of Alcohol Consumption Never 10/07/2018 Average Number of Drinks Not on file 019 Frequency of Binge Drinking Not on file 09/10 Comments Unknown Sex and Gender Information Value Date Recorded Sex Assigned at Not on file Legal Sex Female 9:32 PM CHROMIUM PLATER Gender Identity Not on file Sexual Orientation Not on file documented as of this encounter Plan of Treatment Not on file documented as of this encounter Procedures Procedure Name Priority Date/Time Associated Diagnosis Comments SCAN - LABS 01/24/2021 documented in this encounter Results * SCAN - LABS (01/24/2021) us Provider Scanning Final Result documented in this encounter Visit Diagnoses Not on filedocumented in this encounter Additional Health Concerns Infection Onset Date Last Indicated Resolved Time Meningitis, contact + drople t Comment:Ruleout 02/06/2021 02/06/2021 02/08/2021 8:21 AM C DT COVID: Suspected 04/05/2021 04/05/2021 04/05/2021 9:03 PM CDT COVID: Suspected 02/22/2022 02/22/2022 02/22/2022 2:54 AM CDT MDR gram neg/ESBL 04/07/2022 07/12/2022 COVID: Suspected 07/12/2022 07/12/2022 07/12/2022 1:31 PM CHROMIUM PLATER COVID: Suspected 09/07/2022 09/07/2022 09/07/2022 5:37 PM CDT documented as of this encounter Care Teams Senior Paralegal Relationship Specialty Start Date End Date Akhil Jay DO PCP - General Family Medicine 10/16/18 Akhil Jay DO Family Medicine 10/04/18 09/13/22 Sada Woodard DO Internal Medicine 10/07/18 Clemente Bond Jr., MD Medical Oncologist/Periodontist Medical Oncology 04/09/19 01/02/23 Sarah Rowell RN [address] [address] SHOP Outpatient Electrician Manager 02/16/21 03/16/21 Sarah Rowell RN [address] [address] SHOP Outpatient Electrician Manager 04/12/21 04/12/21 Josefa Alvarado MD [address] [address] Radiation Oncologist Radiation Oncology 04/27/21 Redd Leary MD [address] [place] [address] [phone] Surgeon General Surgery 04/27/21 Jessica Henriquez RN [address] [address] SHOP Outpatient Electrician Manager 09/14/22 10/02/22 Donna Mayberry NP [address] [place] [address] [phone] Nurse Practitioner Medical Oncology 01/03/23 Irina Hazel MD [address] [place] [address] Consulting Physician Pain Management 10/02/23 Josefa Alvarado MD [address] [place] [address] [phone] Radiation Oncologist Radiation Oncology 01/03/24 documented as of this encounter
--- OUTSIDE RECORDS SUMMARY | 2024-07-05 11:19 | XMS_ITS | Encounter Summary ---
Author Organization [facility] Address [address] [facility] [place] [address] Care Team Providers Care Chief Drafter Name Role Phone Akhil Jay DO Primary Care Provider + Encounter Details Date Type Department Care Team (Late st Contact Info) Description 03/26/2019 Lab Requisition [facility] [address] [facility], [place] [address] Sada Woodard DO [address] [facility] 3 [place] [address] Social History Tobacco Use Types Packs/Day Years Used Date Smoking Tobacco: Never Assessed Sex and Gender Information Value Date Recorded Sex Assigned at Not on file Gender Identity Not on file Sexual Orientation Not on file documented as of this encounter Plan of Treatment Not on file documented as of this encounter Procedures Procedure Name Priority Date/Time Associated Diagnosis Comments DERMATOPATHOLOGY Routine 03/25/2019 12:0 0 AM CDT documented in this encounter Results * DERMATOPATHOLOGY (03/25/2019 12:00 AM CDT) Case Report Dermatopathology Report ? Case: [id number] ? Authorizing Provider: ??Sada Woodard, DO ?? Collected: ? 03/25/2019 12:00 AM ? Ordering Location: ? [facility] ?Received: ?03/26/2019 06:26 AM ? Pathologist: ? Corinne Tolentino MD ? Specimen: ?Skin, mid back ? 9 10:[address] [facility] DERMAT[facility]ATHOLOGY [facility]ORATORY Final Diagnosis Specimen A. SKIN, mid back: INTRADERMAL MELANOCYTIC NEVUS (D22.5) 9 10:[address] [facility] DERMATOPATHOLOGY LABORATORY Clinical History ISK vs IDN vs met - new dx of breast CA new painful papule. 9 10:[address] [facility] DERMATOPATHOLOGY [facility]ORATORY Gross Description Specimen A: Received is one formalin filled container labeled with the patient's name and designated mid back. The specimen consists of a shave measuring [id number]. Jar 0. 9 10:[address] [facility] DERMATOPATHOLOGY LABORATORY Microscopic Description Specimen A. SKIN, mid back: There are nests of cytologically bland melanocytes within the dermis that mature with depth. 9 10:[address] [facility] DERMATOPATHOLOGY LABORATORY Disclaimer An external and internal positive and negative controls are appropriate for the histochemical, immunohistochemical and immunofluorescence stain(s) in this case (if any), except where stated explicitly. The performance characteristics of the stain(s) cited in this report were developed and its performance characteristic determined by the Dermatopathology Laboratory at [facility], directed by Dr. Noble Quesada. These tests need not be, and therefore are not, approved by the [place] Food and Drug Administration. The tests are used for clinical purposes. Billing Codes Specimen Charges Stain Charges 74375 1 9 10:19 AM CDT DERMATOPATHOLOGY LABORATORY Embedded Images 9 10:19 AM CDT DERMATOPATHOLOGY LABORATORY Pathology/Cytolog y TISSUE SPECIMEN FROM SKIN / Unknown 03/25/2019 03/26/2019 6:26 AM CDT Sada Woodard DO LAB - PATHOLOGY/C YTOLOGY ORDERABLES DERMATOPATHOLOGY LABORATORY [facility] - Department of Dermatology [address] [place] [address], 5th Floor Lab B [address] [phone] documented in this encounter Visit Diagnoses Not on filedocumented in this encounter Care Teams Chief Drafter Relationship Specialty Start Date End Date Akhil Jay DO [address] [place] [address] PCP - General 05/31/22 documented as of this encounter
--- OUTSIDE RECORDS SUMMARY | 2024-07-05 11:19 | XMS_ITS | Referral Summary ---
Author Organization [facility] Address [address] [facility] [place] [address] Care Team Providers Care Cook Ice Cream Name Role Phone Akhil Jay DO Primary Care Provider + Source Comments [facility],non-owned Affiliates and Associated Physician Practices is amultiple site organization consisting of ambulatory clinics and hospital sitesin [place], [place], [place] and [place]. This disclosure is being madepursuant to the Care Everywhere program and may not contain all information available regarding this patient. Last updated 18.[facility] [employer] Social History Tobacco Use Types Packs/Day Years Used Date Smoking Tobacco: Never Assessed Sex and Gender Information Value Date Recorded Sex Assigned at Not on file Gender Identity Not on file Sexual Orientation Not on file Plan of Treatment Not on file Care Teams Cook Ice Cream Relationship Specialty Start Date End Date Akhil Jay DO [address] [place] [address] [phone] PCP - General 05/31/22
--- OUTSIDE RECORDS SUMMARY | 2024-07-05 11:19 | XMS_ITS | Encounter Summary ---
Author Organization [facility] Care Team Providers Care Commercial Photographer Name Role Phone Kirk Batista MD Primary Care Provider [phone] Akhil Jay DO Unavailable [phone] Sada Woodard DO Unavailable [phone] Akhil Jay DO Primary Care Provide r Varun Dunn MD, Clemente Unavailable + [phone] Sarah Rowell RN Unavailable +[phone] Sarah Rowell RN Unavailable [phone] Josefa Alvarado MD Unavailable +[phone] Redd Leary MD Unavailable +[phone] Jessica Henriquez RN Unavailable [phone] Donna Mayberry NP Unavailable + [phone] Irina Hazel MD Unavailable Josefa Alvarado MD Unavailable +[phone] Encounter Details Date Type Department Care Team (Latest Contact Info) Description 10/23/2017 Orders Only [facility] ProviderCrys MD [address] [place] [address] Social History Tobacco Use Types Packs/Day Years Used Date Smoking Tobacco: Never Assessed Comments Unknown Sex and Gender Information Value Date Recorded Sex Assigned at Not on file 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 us Historical Provider [facility] Final Result documented in this encounter Visit [...] COVID: Suspected 07/12/2022 07/12/2022 07/12/2022 1:31 PM HOUSE WRECKER COVID: Suspected 09/07/2022 09/07/2022 09/07/2022 5:37 PM CDT documented as of this encounter Care Teams Commercial Photographer Relationship Specialty Start Date End Date Kirk Batista MD PCP - General Family Medicine 08/31/18 10/15/18 Akhil Jay DO PCP - General Family Medicine 10/16/18 Akhil Jay DO Family Medicine 10/04/18 09/13/22 Sada Woodard DO Internal Medicine 10/07/18 Clemente Bond Jr., MD Medical Oncologist/Car Chaser Medical Oncology 04/09/19 01/02/23 Sarah Rowell, GREG [address] [facility] [address] [address] [place] [address] SHOP Outpatient Route Salesperson 02/16/21 03/16/21 Sarah Rowell RN [address] [facility] [address] [address] [place] [address] SHOP Outpatient Route Salesperson 04/12/21 04/12/21 Josefa Alvarado MD [address] [facility] [address] [place] [address] Radiation Oncologist Radiation Oncology 04/27/21 Redd Leary MD [address] [place] [address] Surgeon General Surgery 04/27/21 Jessica Henriquez RN [address] [facility] [address] [place] [address] SHOP Outpatient [address] Salesperson 09/14/22 10/02/22 Donna Mayberry NP [address] [place] [address] Nurse Practitioner Medical Oncology 01/03/23 Irina Hazel MD [address] [facility] [address] [facility] [address] [place] [address] Consulting Physician Pain Management 10/02/23 Josefa Alvarado MD [address] [facility] [address] [place] [address] Radiation Oncologist Radiation Oncology 01/03/24 documented as of this encounter
--- OUTSIDE RECORDS SUMMARY | 2024-07-05 11:19 | XMS_ITS | Encounter Summary ---
Author Organization [facility] Address [address] [place] [address] Phone Care Team Providers Care Slat Basket Maker Helper Name Role Phone Akhil Jay DO Unavailable Sada Woodard DO Unavailable [phone] Akhil Jay DO Primary Care Provide r Varun Dunn MD, Clemente Unavailable + [phone] Sarah Rowell RN Unavailable Sarah Rowell RN Unavailable +[phone] Josefa Alvarado MD Unavailable +[phone] Redd Leary MD Unavailable +[phone] Jessica Henriquez RN Unavailable [phone] Donna Mayberry NP Unavailable + [phone] Irina Hazel MD Unavailable Josefa Alvarado MD Unavailable +[phone] Encounter Details Date Type Department Care Team (Late st Contact Info) Description 03/25/2019 Orders Only [facility] Scanning, Provider Social History Tobacco Use Types Packs/Day Years Used Date Smoking Tobacco: Former Cigarettes 0.5 15 1 970 - 1985 Smokeless Tobacco: Never Alcohol Use Standard Drinks/Week Comments Never 0 (1 standard drink = 0.6 oz pur e alcohol) AUDIT-C Answer Date Recorded Frequency of Alcohol Consumption Never 10/07/2018 Average Number of Drinks Not on file 019 Frequency of Binge Drinking Not on file 09/10 Comments Unknown Sex and Gender Information Value Date Recorded Sex Assigned at Not on file 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 Gender Identity Not on file Sexual Orientation Not on file documented as of this encounter Plan of Treatment Not on file documented as of this encounter Procedures Procedure Name Priority Date/Time Associated Diagnosis Comments SCAN - PATHOLOGY 03/25/2019 documented in this encounter Results * SCAN - PATHOLOGY (03/25/2019) us Provider Scanning Final Result documented in [...] COVID: Suspected 07/12/2022 07/12/2022 07/12/2022 1:31 PM ALCOHOLIC COUNSELOR COVID: Suspected 09/07/2022 09/07/2022 09/07/2022 5:37 PM CDT documented as of this encounter Care Teams Slat Basket Maker Helper Relationship Specialty Start Date End Date Akhil Jay DO PCP - General Family Medicine 10/16/18 Akhil Jay DO Family Medicine 10/04/18 09/13/22 Sada Woodard DO Internal Medicine 10/07/18 Clemente Bond Jr., MD Medical Oncologist/Cut Out Stitcher Medical Oncology 04/09/19 01/02/23 Sarah Rowell RN [address] [address] SHOP Outpatient Executive Officer Special Warfare Team 02/16/21 03/16/21 Sarah Rowell RN [address] [address] SHOP Outpatient Executive Officer Special Warfare Team 04/12/21 04/12/21 Josefa Alvarado MD [address] [address] Radiation Oncologist Radiation Oncology 04/27/21 Redd Leary MD [address] [place] [address] Surgeon General Surgery 04/27/21 Jessica Henriquez RN [address] [address] SHOP Outpatient Executive Officer Special Warfare Team 09/14/22 10/02/22 Donna Mayberry NP [address] [place] [address] [phone] Nurse Practitioner Medical Oncology 01/03/23 Irina Hazel MD [address] [place] [address] [phone] Consulting Physician Pain Management 10/02/23 Josefa Alvarado MD [address] [place] [address] Radiation Oncologist Radiation Oncology 01/03/24 documented as of this encounter
--- OUTSIDE RECORDS SUMMARY | 2024-07-05 11:19 | XMS_ITS | Encounter Summary ---
Author Organization [facility] Address [address] [facility] [place] [address] Care Team Providers Care Vocational Training Instructor Name Role Phone Akhil Jay DO Primary Care Provider + Encounter Details Date Type Department Care Team (Late st Contact Info) Description 02/12/2019 Lab Requisition [facility] [address] [facility], [place] [address] Sada Woodard DO [address] [facility] 3 [place] [address] Social History Tobacco Use Types Packs/Day Years Used Date Smoking Tobacco: Never Assessed Sex and Gender Information Value Date Recorded Sex Assigned at Not on file Gender Identity Not on file Sexual Orientation Not on file documented as of this encounter Plan of Treatment Not on file documented as of this encounter Procedures Procedure Name Priority Date/Time Associated Diagnosis Comments DERMATOPATH TECHNICAL REPORT Routine 02/11/2019 12:00 AM CDT documented in this encounter Results * DERMATOPATH TECHNICAL REPORT (02/11/2019 12:00 AM CDT) Case Report Dermatopathology Report ? Case: [id number] ? Authorizing Provider: ??Sada Woodard, DO ?? Collected: ? 02/11/2019 12:00 AM ? Ordering Location: ? [facility] ?Received: ?02/12/2019 06:15 AM ? Pathologist: ? Krista Quesada MD ? Specimen: ?Skin, left back lesional ? 1:12 PM CDT DERMATOPATHOLOGY LABORATORY Addendum 1 At the request of the diagnosing physician, the technical component for GMS was performed by [facility]at[facility]. 1:12 PM T DERMATOPATHOLOGY LABORATORY Addendum electronically signed by Krista Quesada MD on 02/14/2019 at 1:12 PM Clinical History Pt with hx BP new on set pruritic urticarial plaques. New dx Breast Ca. 1:12 PM CDT DERMATOPATHOLOGY LABORATORY Gross Description Specimen A: Received is one formalin filled container labeled with the patient's name and designated left back lesional. The specimen consists of a punch measuring [id number], bisected. Jar 0. [facility] performed the technical component only. 1:12 PM CDT DERMATOPATHOLOGY LABORATORY Embedded Images 1:12 PM CDT DERMATOPATHOLOGY LABORATORY DISCLAIMER An external and internal positive and negative controls are appropriate for the histochemical, immunohistochemical and immunofluorescence stain(s) in this case (if any), except where stated explicitly. The performance characteristics of the stain(s) cited in this report were developed and its performance characteristic determined by the Dermatopathology Laboratory at [facility], directed by Dr. Noble Quesada. These tests need not be, and therefore are not, approved by the [place] Food and Drug Administration. The tests are used for clinical purposes. 09/06/201 9 1:12 PM CDT DERMATOPATHOLOGY LABORATORY Pathology/Cytolog y TISSUE SPECIMEN FROM SKIN / Unknown 02/11/2019 02/12/2019 6:15 AM CDT Sada Woodard DO LAB - PATHOLOGY/C YTOLOGY ORDERABLES DERMATOPATHOLOGY LABORATORY [facility] - Department of Dermatology [address] [place] [address], 5th Floor Lab [address] [phone] documented in this encounter Visit Diagnoses Not on filedocumented in this encounter Care Teams Vocational Training Instructor Relationship Specialty Start Date End Date Akhil Jay DO [address] [place] [address] PCP - General 05/31/22 documented as of this encounter
--- OUTSIDE RECORDS SUMMARY | 2024-07-05 11:19 | XMS_ITS | Encounter Summary ---
Author Organization [facility] Address [address] [place] [address] Phone Care Team Providers Care Change House Attendant Name Role Phone Akhil Jay DO Unavailable [phone] Sada Woodard DO Unavailable [phone] Akhil Jay DO Primary Care Provide r Varun Dunn MD, Clemente Unavailable + [phone] Sarah Rowell RN Unavailable [phone] Sarah Rowell RN Unavailable [phone] Josefa Alvarado MD Unavailable +[phone] Redd Leary MD Unavailable +[phone] Jessica Henriquez RN Unavailable [phone] Donna Mayberry NP Unavailable + [phone] Irina Hazel MD Unavailable Josefa Alvarado MD Unavailable +[phone] Encounter Details Date Type Department Care Team (Late st Contact Info) Description 02/05/2021 Ophth Exam [facility] Ophthalmology [address] [place] [address] 1st [place] [address] Randy Beasley MD PhD [address] [place] [address] [facility] [phone] [place] [address] Social History Tobacco Use Types Packs/Day Years Used Date Smoking Tobacco: Former Cigarettes 0.5 15 1 970 - 1984 Smokeless Tobacco: Never Alcohol Use Standard Drinks/Week [...] on file 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 Gender Identity Not on file Sexual Orientation Not on file documented as of this encounter Plan of Treatment Not on file documented as of this encounter Visit Diagnoses Not on filedocumented in this encounter Additional Health Concerns Infection Onset Date Last Indicated Resolved Time Meningitis, contact + drople t Comment:Ruleout 02/06/2021 02/06/2021 02/08/2021 8:21 AM C DT COVID: Suspected 04/05/2021 04/05/2021 04/05/2021 9:03 PM CDT COVID: Suspected 02/22/2022 02/22/2022 02/22/2022 2:54 AM CDT MDR gram neg/ESBL 04/07/2022 07/12/2022 COVID: Suspected 07/12/2022 07/12/2022 07/12/2022 1:31 PM BLACK TOP ROLLER COVID: Suspected 09/07/2022 09/07/2022 09/07/2022 5:37 PM CDT documented as of this encounter Eye Exam Visual Acuity Right eye Left eye Near sc BTL BTL Tonometry (Tonopen, 4:46 PM) Right eye Left eye Pressure 15 16 Pupils Dark Light Shape React APD Right eye 4 2 Round Brisk None Left eye 4 2 Round Brisk None Visual Jung DENIA Extraocular Movement DENIA Neuro/Psych Oriented x3: Yes Mood/Affect: Normal Dilation Both eyes: 1.0% Mydriacyl, 2 .5% Phenylephrine @ 4:47 PM External Exam Right eye Left eye External Normal Periorbital ron a, scabbed over vesicles in V1 distribution, negative Hutchinsons sign Portable Slit Lamp Exam Right eye Left eye Lids/Lashes Normal periorbital eryt tory, scabbed over vesicles Conjunctiva/Sclera White and quiet White and nayeli et Cornea Clear Clear, no staini ng Anterior Chamber Deep and formed Deep and quiet Iris Round and reactive Round and remigio ctive Lens PCIOL centered, 2+ PCO PCIOL maribel tered, 2+ PCO Anterior Vitreous Normal Normal Fundus Exam Right eye Left eye Disc Normal Normal C/D Ratio 0.3 0.3 Macula Normal Normal Vessels Normal Normal Periphery Normal Normal Care Teams Change House Attendant Relationship Specialty Start Date End Date Akhil Jay DO PCP - General Family Medicine 10/16/18 Akhil Jay DO Family Medicine 10/04/18 09/13/22 Sada Woodard DO Internal Medicine 10/07/18 Clemente Bond Jr., MD Medical Oncologist/Candle Molder Machine Medical Oncology 04/09/19 01/02/23 Sarah Rowell RN [address] [address] SHOP Outpatient Water Treatment Technician 02/16/21 03/16/21 Sarah Rowell RN [address] [address] SHOP Outpatient Water Treatment Technician 04/12/21 04/12/21 Josefa Alvarado MD [address] [address] Radiation Oncologist Radiation Oncology 04/27/21 Redd Leary MD [address] [place] [address] Surgeon General Surgery 04/27/21 Jessica Henriquez, RN [address] [id number] SHOP Outpatient Water Treatment Technician 09/14/22 10/02/22 Donna Mayberry NP [address] [place] [address] Nurse Practitioner Medical Oncology 01/03/23 Irina Hazel MD [address] [place] [address] Consulting Physician Pain Management 10/02/23 Josefa Alvarado MD [address] [place] [address] Radiation Oncologist Radiation Oncology 01/03/24 documented as of this encounter
--- OUTSIDE RECORDS SUMMARY | 2024-07-05 11:19 | XMS_ITS | Encounter Summary ---
Author Organization [facility] Address [address] [place] [address] Phone Care Team Providers Care Intern Architect Name Role Phone Akhil Jay DO Unavailable Sada Woodard DO Unavailable [phone] Akhil Jay DO Primary Care Provide r Varun Dunn MD, Clemente Unavailable + [phone] Sarah Rowell RN Unavailable +[phone] Sarah Rowell RN Unavailable [phone] Josefa Alvarado MD Unavailable +[phone] Redd Leary MD Unavailable +[phone] Jessica Henriquez RN Unavailable +[phone] Donna Mayberry NP Unavailable + [phone] Irina Hazel MD Unavailable Josefa Alvarado MD Unavailable +[phone] Encounter Details Date Type Department Care Team (Late st Contact Info) Description 02/11/2019 Orders Only [facility] Scanning, Provider [...] on file 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 Female 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 Gender Identity Not on file Sexual Orientation Not on file documented as of this encounter Plan of Treatment Not on file documented as of this encounter Procedures Procedure Name Priority Date/Time Associated Diagnosis Comments SCAN - PATHOLOGY 02/11/2019 documented in this encounter Results * SCAN - PATHOLOGY (02/11/2019) us Provider Scanning Final Result documented in [...] COVID: Suspected 07/12/2022 07/12/2022 07/12/2022 1:31 PM 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 COVID: Suspected 09/07/2022 09/07/2022 09/07/2022 5:37 PM CDT documented as of this encounter Care Teams Intern Architect Relationship Specialty Start Date End Date Akhil Jay DO PCP - General Family Medicine 10/16/18 Akhil Jay DO Family Medicine 10/04/18 09/13/22 Sada Woodard DO Internal Medicine 10/07/18 Clemente Bond Jr., MD Medical Oncologist/Envelope Press Operator Medical Oncology 04/09/19 01/02/23 Sarah Rowell RN [address] [address] SHOP Outpatient Staff Mechanical Engineer 02/16/21 03/16/21 Sarah Rowell RN [address] [address] SHOP Outpatient Staff Mechanical Engineer 04/12/21 04/12/21 Josefa Alvarado MD [address] [address] Radiation Oncologist Radiation Oncology 04/27/21 Redd Leary MD [address] [place] [address] Surgeon General Surgery 04/27/21 Jessica Henriquez RN [address] [address] SHOP Outpatient Staff Mechanical Engineer 09/14/22 10/02/22 Donna Mayberry NP [address] [place] [address] [id number] Nurse Practitioner Medical Oncology 01/03/23 Irina Hazel MD [address] [place] [address] [id number] Consulting Physician Pain Management 10/02/23 Josefa Alvarado MD [address] [place] [address] Radiation Oncologist Radiation Oncology 01/03/24 documented as of this encounter
--- OUTSIDE RECORDS SUMMARY | 2024-07-05 11:19 | XMS_ITS | Encounter Summary ---
Author Organization [facility] Facility Care Team Providers Care Pattern Grader Cutter Name Role Phone Kirk Batista MD Primary Care Provider [phone] Akhil Jay DO Unavailable [phone] Sada Woodard DO Unavailable [phone] Akhil Jay DO Primary Care Provide r Varun Dunn MD, Clemente Unavailable + [phone] Sarah Rowell RN Unavailable +[phone] Sarah Rowell RN Unavailable [phone] Josefa Alvarado MD Unavailable +[phone] Redd Leary MD Unavailable +[phone] Jessica Henriquez RN Unavailable +[phone] Donna Mayberry NP Unavailable + [phone] Irina Hazel MD Unavailable Josefa Alvarado MD Unavailable +[phone] Encounter Details Date Type Department Care Team (Latest Contact Info) Description 10/11/2017 Orders Only [facility] CLINCON[facility] ProviderCrys MD [address] [place] [address] Social History Tobacco Use Types Packs/Day Years Used Date Smoking Tobacco: Never Assessed Comments Unknown Sex and Gender Information Value Date Recorded Sex Assigned at Not on file 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 us Historical Provider Final Res ult documented in this encounter Visit Diagnoses Not on filedocumented in this encounter Additional Health Concerns Infection Onset Date Last Indicated Resolved Time Meningitis, contact + drople t Comment:Ruleout 02/06/2021 02/06/2021 02/08/2021 8:21 AM C DT COVID: Suspected 04/05/2021 04/05/2021 04/05/2021 9:03 PM CDT COVID: Suspected 02/22/2022 02/22/2022 02/22/2022 2:54 AM CDT MDR gram neg/ESBL 04/07/2022 07/12/2022 COVID: Suspected 07/12/2022 07/12/2022 07/12/2022 1:31 PM FOOT SETTER COVID: Suspected 09/07/2022 09/07/2022 09/07/2022 5:37 PM CDT documented as of this encounter Care Teams Pattern Grader Cutter Relationship Specialty Start Date End Date Kirk Batista MD PCP - General Family Medicine 08/31/18 10/15/18 Akhil Jay DO PCP - General Family Medicine 10/16/18 Akhil Jay DO Family Medicine 10/04/18 09/13/22 WoodardSada DO Internal Medicine 10/07/18 Clemente Bond Jr., MD Medical Oncologist/Vegetable Cutter Medical Oncology 04/09/19 01/02/23 Sarah Rowell RN [address] [facility] [address] [place] [address] SHOP Outpatient [place]ellows Filler 02/16/21 03/16/21 Sarah Rowell RN [address] [facility] [address] [place] [address] SHOP Outpatient [place]ellows Filler 04/12/21 04/12/21 Josefa Alvarado MD [address] [facility] [address] [place] [address] Radiation Oncologist Radiation Oncology 04/27/21 Redd Leary MD [address] [place] [address] Surgeon General Surgery 04/27/21 Jessica Henriquez RN [address] [facility] [address] [place] [address] SHOP Outpatient Bellows Filler 09/14/22 10/02/22 Donna Mayberry NP [address] [place], [place] [id number] Nurse Practitioner Medical Oncology 01/03/23 Irina Hazel MD [address] [place] [address] Consulting Physician Pain Management 10/02/23 Josefa Alvarado MD [address] [facility] [address] [place] [address] Radiation Oncologist Radiation Oncology 01/03/24 documented as of this encounter
--- OUTSIDE RECORDS SUMMARY | 2024-07-05 11:19 | XMS_ITS | Encounter Summary ---
Author Organization [facility] Facility Care Team Providers Care Claims Director Name Role Phone Kirk Batista MD Primary Care Provider [phone] Akhil Jay DO Unavailable [phone] Sada Woodard DO Unavailable [phone] Akhil Jay DO Primary Care Provide r Varun Dunn MD, Clemente Unavailable + [phone] Sarah Rowell RN Unavailable +[phone] Sarah Rowell RN Unavailable [phone] Josefa Alvarado MD Unavailable +[phone] Redd Leary MD Unavailable +[phone] Jessica Henriquez RN Unavailable +[phone] Donna Mayberry NP Unavailable + [phone] Irina Hazel MD Unavailable Josefa Alvarado MD Unavailable +[phone] Encounter Details Date Type Department Care Team (Latest Contact Info) Description 06/27/2018 Orders Only [facility] CLINCONV ProviderCrys MD [address] [place] [address] Social History Tobacco Use Types Packs/Day Years Used Date Smoking Tobacco: Never Assessed Comments Unknown Sex and Gender Information Value Date Recorded Sex Assigned at Not on file 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 us Historical [...] COVID: Suspected 07/12/2022 07/12/2022 07/12/2022 1:31 PM FLUID POWER MECHANIC COVID: Suspected 09/07/2022 09/07/2022 09/07/2022 5:37 PM CDT documented as of this encounter Care Teams Claims Director Relationship Specialty Start Date End Date Kirk Batista MD PCP - General Family Medicine 08/31/18 10/15/18 Akhil Jay DO PCP - General Family Medicine 10/16/18 Akhil Jay DO Family Medicine 10/04/18 09/13/22 Sada Woodard DO Internal Medicine 10/07/18 Clemente Bond Jr., MD Medical Oncologist/Safe Expert Medical Oncology 04/09/19 01/02/23 Sarah Rowell RN [address] [facility] [address] [place] [address] SHOP Outpatient [place] 02/16/21 03/16/21 Sarah Rowell RN [address] [facility] [address] [place] [address] SHOP Outpatient [place] 04/12/21 04/12/21 Josefa Alvarado MD [address] [place] [address] Radiation Oncologist Radiation Oncology 04/27/21 Redd Leary MD [address] [place] [address] Surgeon General Surgery 04/27/21 Jessica Henriquez RN [address] [place] [address] SHOP Outpatient [place] 09/14/22 10/02/22 Donna Mayberry NP [address] [place] [address] Nurse Practitioner Medical Oncology 01/03/23 Irina Hazel MD [facility] [address] Consulting Physician Pain Management 10/02/23 Josefa Alvarado MD [address] [facility] [address] [place] [address] Radiation Oncologist Radiation Oncology 01/03/24 documented as of this encounter
--- OUTSIDE RECORDS SUMMARY | 2024-07-05 11:19 | XMS_ITS | Clinical Summary ---
Author Organization [facility] Address [address] [place] [address]. [place] [address] [place] [address] Care Team Providers Care Motor Assembler Name Role Phone KishorAkhil valladares DO Primary Care Provider + Redd Leary MD Unavailable [phone] Josefa Alvarado MD Unavailable [phone] Clemente Bond MD Unavailable [phone] Sada Woodard DO Unavailable [phone] Hanh Arguelles RN Unavailable [phone] Allergies Active Allergy Reactions Criticality Noted Date Comments Amoxicillin Diarrhea High 09/06/2023 Amoxicillin-Pot Clavulanate Diarrhea Low 11/30/19 22 Clavulanic Acid Diarrhea High 09/06/2023 Gemfibrozil Itching,Rash High 09/24/2018 Rash from top of feet to neck, itching Hydrochlorothiazide Dizziness,Rash High 09/24/2018 makes the room spin , vertigo Hydrocodone Dizziness High 09/24/2018 Notes it with any narcotic except codeine. tolerates tylenol with codeine Irbesartan Hives High 07/01/2019 Lisinopril Dizziness,Itching ,Rash High 09/24/2018 makes the room spin , vertigo, bullous pemphigoid Niacinamide Rash High 12/19/2019 Medications EQ ACETAMINOPHEN 500 MG tabletIndications: Other closed fracture of distal end of right ulna, initial encounter TAKE 2 TABLETS BY MOUTH EVERY 6 HOURS NEEDED FOR PAIN 30 tablet 01/11/20 22 Active erythromycin (ROMYCIN) 5 MG/GM (0.5%) ophthalmic ointment 2 (two) times a day. Active triamcinolone (KENALOG) 0.1 % ointment Twice daily to affected areas as needed. 11/18/19 23 Active memantine (NAMENDA) 5 MG tablet Take 1 tablet (5 mg total) by mouth 2 (two) times daily. 08/10/19 24 025 Active fenofibrate 160 MG tabletIndications: Hyperlipidemia, unspecified hyperlipidemia type Take 1 tablet by mouth once daily 90 tablet 1 12/20/19 24 Active silver sulfADIAZINE (SILVADENE) 1 % creamIndications:B ullous pemphigoid ([facility]) Apply topically 2 (two) times daily. 400 g 2 01/03/20 24 Active glipiZIDE XL 10 MG 24 hr tabletIndications: Type 2 diabetes mellitus with microalbuminuria, without long-term current use of insulin ([facility]) Take 1 tablet (10 mg total) by mouth daily with breakfast. Do not break or crush tablet 30 tablet 2 03/05/20 24 Active rosuvastatin (CRESTOR) 40 MG tabletIndications: Hyperlipidemia, unspecified hyperlipidemia type take 1 tablet by mouth nightly at bedtime 90 tablet 03/26/20 24 Active levothyroxine (SYNTHROID) 100 MCG tabletIndications: Hypothyroidism, unspecified type take 1 tablet by mouth once daily in the morning 90 tablet 03/26/20 24 Active Multiple Vitamin (MULTIVITAMIN ADULT OR) Take 1 tablet by mouth daily. Active diphenhydrAMINE (BENADRYL) 25 MG capsule Take 1 capsule (25 mg total) by mouth every 6 (six) hours as needed for Itching. Active polyvinyl alcohol (LIQUIFILM/ARTIFIC IAL TEARS) 1.4 % ophthalmic solution Place 1 drop into both eyes as needed (dry/red eyes). Active hydrocortisone 2.5 % cream Apply topically 2 (two) times daily. Active ondansetron (ZOFRAN-ODT) 4 MG disintegrating tabletIndications: Herpes zoster without complication DISSOLVE 1 TABLET IN MOUTH EVERY 4 HOURS NEEDED FOR NAUSEA AND VOMITING 60 tablet 04/22/20 24 Active naloxone (NARCAN) 4 MG/0.1ML nasal sprayIndications:O pioid use 1 spray by Nasal route as needed for Opioid reversal. may repeat every 2 to 3 minutes in alternating nostrils until medical assistance becomes available 1 each 06/02/20 24 Active Additional Information Patient not taking.Reported on 06/18/2024 pregabalin (LYRICA) 150 MG capsuleIndications :Post herpetic neuralgia Take 2 capsules by mouth twice daily 360 capsule 06/05/20 24 Active amLODIPine (NORVASC) 10 MG tabletIndications: Essential hypertension Take 1 tablet by mouth once daily 90 tablet 06/05/20 24 Active vitamin D2, ergocalciferol, (DRISDOL) 1.25 mg capsule Take 1 capsule (1.25 mg total) by mouth every 7 days. Active nortriptyline (PAMELOR) 25 MG capsuleIndications :Post herpetic neuralgia Take 1 capsule (25 mg total) by mouth nightly at bedtime. 30 capsule 2 06/18/19 25 Active oxyCODONE-acetamin ophen (PERCOCET) 5-325 MG tabletIndications: Chronic Pain Take 1-2 tablets by mouth every 6 (six) hours as needed for Pain. Indications: Chronic Pain 60 tablet 06/30/19 25 Active anastrozole 1 MG tablet Take 1 tablet by mouth daily. 04/17/20 19 025 Discontin ued(Thera py completed ) naproxen (NAPROSYN) 375 MG tabletIndications: JOANNE (acute kidney injury) (CMS/HCC) TAKE 1 TABLET BY MOUTH EVERY 72 HOURS NEEDED FOR PAIN 60 tablet 11/28/19 24 025 Discontin ued(Thera py completed ) B exstwfy-W-tqmmf acid 0.8 mg (DIALYVITE/NEPHRO- BRISSA) Tab tablet Take 1 tablet by mouth daily. 025 Discontin ued(Thera py completed ) Vitamin D, Cholecalciferol, 25 MCG (1000 UT) CapIndications:Vit bloom D deficiency Take 1 capsule by mouth daily. 12/06/19 24 025 Discontin ued(Dose adjustmen t) pantoprazole EC (PROTONIX) 40 MG tablet Take 1 tablet (40 mg total) by mouth every 12 (twelve) hours. 04/20/20 24 025 Discontin ued(Thera py completed ) promethazine (PHENERGAN) 25 MG tablet Take 1 tablet (25 mg total) by mouth every 4 (four) hours as needed for Nausea. 04/20/20 24 025 Discontin ued(Thera py completed ) predniSONE (DELTASONE) 20 MG tabletIndications: Bullous pemphigoid (CMS/HCC HHS/HCC) Take 3 tablets for five days, then take 2 tablets for five days, then take 1 tablet for five days 30 tablet 05/26/20 24 025 Discontin ued(Thera py completed ) oxyCODONE-acetamin ophen (PERCOCET) 5-325 MG tabletIndications: Chronic Pain Take 1-2 tablets by mouth every 6 (six) hours as needed for Pain. Indications: Chronic Pain 60 tablet 06/02/20 24 025 Discontin ued(Reord er) oxyCODONE-acetamin ophen (PERCOCET) 5-325 MG tabletIndications: Chronic Pain Take 1-2 tablets by mouth every 6 (six) hours as needed for Pain. Indications: Chronic Pain 60 tablet 06/18/19 25 025 Discontin ued(Reord er) Active Problems Problem Noted Date Diagnosed Date Vitamin D deficiency 07/24/2022 ESBL E. coli carrier 07/18/2022 JOANNE (acute kidney injury) 02/22/2022 Pseudophakia of both eyes 01/26/2022 Overview (05/22/2022): Last Assessment & Plan: SRx given Intermediate stage nonexudat brock age-related macular degeneration of both eyes 11/28/2021 Overview (01/11/2022): Last Assessment & Plan: Doing well with AREDS2 vitamins. Stable. Anterior scleritis of eye, left 10/19/2021 Overview (01/11/2022): Last Assessment & Plan: Deep injection superior OS with severe pain [...] Encouraged pt to discuss skin pain with account manager forest service and/or PCP. Recommended pt go to ER with worsening of pain or vision changes. Pt scheduled to see Dr. Montilla on Sunday10/24/2021. Diagnosis: Scleritis left eye Complications: None Last active: 10/19/21 Systemic associations: None Labs: Positive: UA Negative/normal: None Care Team: Other notes: Last Assessment & Plan: She has no active scleritis today. Continue to observe off therapy, I am happy to see her back at any time as needed. Neurotrophic keratitis of left eye 09/09/2021 Overview (11/01/2021): Last Assessment & Plan: Continue lubrication regimen. Keep corneal appt in 12/2021. Punctate epithelial keratopathy of left eye 08/09 Overview (09/15/2021): Last Assessment & Plan: H/o HZ conjunctivitis without corneal lesions. Complicated course for HZ dermatitis that did not resolve, and was recently diagnosed with bullous pemphigoid lesions on her forehead and scalp. Continue aggressive lubrication OS. Will arrange for next available cornea appointment to r/o ocular involvement from pemphigoid. History of therapeutic radiation 04/27/2021 Paroxysmal atrial fibrillation ([facility]) 04/19/2021 Herpes zoster with other complication 04/19/2021 Elevated troponin 04/05/2021 Overview (07/05/2021): Last Assessment & Plan: -Trop mildly elevated, likely demand in setting of infection. Do not have c/f ACS at this time. Posterior capsular opacifica tion of both eyes, obscuring vision 03/28/2021 Overview (07/05/2021): Last Assessment & Plan: Appear visually significant- best corrected to 20/50 OD, OS with refraction today. 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 Consider YAG once anterior surface and zoster dermatitis is improved. Herpes zoster conjunctivitis of left eye 021 Overview (07/05/2021): Last Assessment & Plan: H/o multiple rounds of valacyclovir and IV [...] at this time from an ocular perspective. Last Assessment & Plan: With + hx encephalopathy, only conjunctivitis. No [...] month for repeat exam or sooner prn. Diabetes mellitus type 2 wit hout retinopathy ([facility]) 03/14/2021 Overview (03/15/2021): Last Assessment & Plan: Strict BS control, annual dilated eye exams recommended. 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 Chronic pain syndrome 07/04/2020 Bullous pemphigoid ([facility]) 12/19/2019 Monoclonal gammopathy of unknown significance ([facility]) 12/19/2019 Malignant neoplasm of upper- outer quadrant of left breast in female, estrogen receptor positive ([facility]) 12/10/2018 Infiltrating ductal carcinom a of upper-outer quadrant of left breast in female ([facility]) 12/10/2018 Overview (07/05/2021): Last Assessment & Plan: -s/p lumpectomy and XRT -Continue anastrozole -Follows with Dr. Esposito of [facility] oncology Breast lesion 11/26/2018 Itching 11/25/2018 Abnormality of plasma protein 10/11/2018 Microalbuminuria due to type 2 diabetes mellitus ([facility]) 09/30/2018 Hypertension 09/24/2018 Hypothyroid 09/24/2018 Hyperlipidemia 09/24/2018 Diabetes mellitus, type II ([facility]) Overview (07/05/2021): Last Assessment & Plan: -A1c 6.4 (02/09/21) -Hold home metformin, can add SSI if needed CKD (chronic kidney disease) stage 2, GFR 60-89 ml/min 10/03/2017 Resolved Problems Problem Noted Date Diagnosed Date Resolved Date Complete obstruction of smal l intestine ([facility]) 06/18/2024 06/18/2024 Sepsis ([facility]) 04/05/2021 Overview (07/05/2021): Last Assessment & Plan: - Continue IV ceftriaxone 2g q24 hrs [...] thrombocytopenia, hemolytic anemia, cholecystitis, or interstitial nephritis. Severe malnutrition ([facility]) 02/08/2021 04/19/2021 Overview (03/15/2021): Last Assessment & Plan: Endorses 30lb wt loss since zoster infection due to reduced appetite - RD consulted, appreciate recommendations. Nutritional supplements Encounters Date Type Department Care Team Description 06/24/2024 Scan [facility] INFO SRVCS Scanned, Doc Med Group Lab (SCAN) 06/18/2024 1:40 PM GOLF RANGE ATTENDANT Office Visit [facility] Internal [address] [phone] Akhil Jay, DO Diabetes 06/18/2024 Scan [facility] HEALTH INFO SRVCS Scanned, Doc Med Group 06/18/[address] [phone] Akhil Jay, DO Question 06/18/2024 Travel 06/02/[address] [phone] Akhil Jay, DO Medication Request 05/28/2024 Scan [facility] INFO SRVCS Scanned, Doc Med Group Mammogram (SCAN) 05/21/2024 Scan [facility] INFO SRVCS Scanned, Doc Med Group 05/19/[address] [phone] Akhil Jay, DO Medication Request; Information 04/23/2024 Scan [facility] INFO SRVCS Scanned, Doc Med Group CT (SCAN) 04/22/2024 Scan [facility] INFO SRVCS Scanned, Doc Med Group Lab (SCAN) 04/22/2024 Scan [facility] HE[facility] INFO SRVCS Scanned, Doc Med Group Lab (SCAN) 04/21/2024 Patient Outreach [address] [phone] Hanh Arguelles RN TCM ([facility] 04/02-04/20) 04/16/2024 Scan [facility] INFO SRVCS Scanned, Doc Med Group Image (SCAN) 04/14/2024 Scan [facility] INFO SRVCS Scanned, Doc Med Group Image (SCAN) 04/14/2024 Patient Outreach [facility] Internal [address] [phone] Hanh Arguelles RN Hospital Follow Up (Inpatient follow up [facility]-UPDATED 04/18) 04/10/2024 Scan [facility] [employer] SRVCS Scanned, Doc Med Group Image (SCAN) 04/07/2024 Patient Outreach [facility] [address] [phone] Hanh Arguelles RN Hospital Follow Up (Inpatient follow up [facility]-UPDATED 04/11) 04/04/2024 Scan MG [employer] SRVCS Scanned, Doc Med Group Procedure (SCAN); Pathology (SCAN) 04/04/2024 Patient Outreach [facility] [address] [phone] Hanh Arguelles RN Hospital Follow Up ([facility] Admission notification) from Last 3 Months Immunizations Name Administration Dates Next Due Fluzone High Dose (IIV, triv alent, 0.5mL) 06/18/2024 Fluzone High Dose - >Age 65 (Prefilled Syringe) 04/25/2023,04/05/2022,06/23/2020 Influenza (Generic) 03/11/2022 Influenza Adult (Generic) 04/25/2023,,04/07/2021,2018,05/14/2018,03/11/2018 MODERNA COVID-19 (12+) MRNA, LNP-S, PF, 100 MCG/ 0.5 ML DOSE 02/24/2021,08/19/2020,07/22/2020 PFIZER COVID-19 ([place] CAP), MRNA, LNP-S, PF, 30 MCG/0.3 ML MERY-SUCROSE, IM 01/11/2022 Pneumococcal (Pneumovax 23) 06/23/2020 Pneumococcal (Prevnar 13) 07/05/2021 Tdap (Boostrix) 10/16/2021 Family History Medical History Relation Comments Alcohol/Drug Brother Cancer Brother pancreatic Heart Brother Migraines Daughter 1 Hypertension Daughter 2 Migraines Daughter 2 Diabetes Father Heart Father Heart Disease Father Hyperlipidemia Father Kidney Disease Father Stroke Maternal Grandfather Alzheimers Mother Dementia Mother Cancer Paternal Grandfather prostate Relation Status Comments Brother (Age 60) Daughter 1 Alive spincter of shivam problems Daughter 2 Alive Father (Age 72) after hea rt surgery and quit taking care of himself Maternal Grandfather (Age 81) Maternal Grandmother (Age 99) Mother (Age 86) of compli cations of alzheimer's Paternal Grandfather (Age 80) Paternal Grandmother (Age 87) Social History Tobacco Use Types Packs/Day Years Used Date Smoking Tobacco: Former Cigarettes 1 30 1 976 - 2006 Passive Smoke Exposure: Never Smokeless Tobacco: Former Tobacco Cessation:Counseling Given: Yes Comments:Former, Quit 2005 Alcohol Use Standard Drinks/Week Comments No 0 (1 standard drink = 0.6 oz pur e alcohol) NA AUDIT-C Answer Date Recorded Frequency of Alcohol Consumption Never 09/24/2018 Average Number of Drinks Not on file 019 Frequency of Binge Drinking Not on file 09/09 PHQ-2 Answer Date Recorded Patient Health Questionnaire-2 Score 0 06/18/2024 Comments No Sex and Gender Information Value Date Recorded Sex Assigned at Not on file Legal Sex Female 2:40 PM CDT Gender Identity Not on file Sexual Orientation Not on file Last Filed Vital Signs Vital Sign Reading Time Taken Comments Blood Pressure 138/80 06/18/2024 1:54 PM GOLF RANGE ATTENDANT Pulse 100 06/18/2024 1:54 PM GOLF RANGE ATTENDANT Temperature 36.5 ??C (97.7 ??F) 06/18/2024 1:54 PM CS T Respiratory Rate 16 06/18/2024 1:54 PM GOLF RANGE ATTENDANT Oxygen Saturation 98% 06/18/2024 1:54 PM GOLF RANGE ATTENDANT Inhaled Oxygen Concentration - - Weight 56.9 kg (125 lb 6.4 oz) 06/18/2024 1:54 P M GOLF RANGE ATTENDANT Height 162.6 cm (5' 4 ) 06/18/2024 1:54 PM GOLF RANGE ATTENDANT Body Mass Index 21.52 06/18/2024 1:54 PM GOLF RANGE ATTENDANT Plan of Treatment Upcoming Encounters Date Type Department Care Team (Late st Contact Info) Description 08/14/2024 2:00 PM GOLF RANGE ATTENDANT [facility]ointment [facility] [place] [address] Akhil Jay DO [address] [place] [address] 08/20/2024 11:20 AM CDT Office Visit [facility] Family & Internal Medicine - [place] [id number] [place] [phone] Akhil Jay DO [address] [place] [address] Health Maintenance Due Date Last Done Comments RSV Immunization or 60+ Years (1 - Risk 60-74 years 1-dose series) 2012 Annual Medicare Wellness Visit 2017 COVID-19 Vaccine ( season) 2024 01/11/2022, 02/24/2021, 08/19/2020, Additional history exists Diabetes: Retinopathy Eye Exam 07/19/2024 Postponed from 1970 (Future Appointment) Zoster Vaccines (1 of 2) 09/20/2024 Pos tponed from 2002 (Going to Outside Clinic) Kidney Health Evaluation 11/29/2024 11/30/2023 Lipid Panel 11/29/2024 11/30/2023, 11/09, 07/05/2021, Additional history exists Hemoglobin A1C 12/16/2024 06/18/2024, 02/10, 11/30/2023, Additional history exists PHQ-2 (Physician [place]) 06/18/2025 06/18/2024 Mammogram Screening 05/28/2026 05/28/2024, 05/28/2024, 12/27/2022, Additional history exists DTaP, Tdap and Td Vaccines (2 - Td or Tdap) 10/17/2031 10/16/2021 Colorectal Cancer Screening Colonoscopy (10 Years) 05/25/2032 05/25/2022 Colorectal Cancer Screening FIT-DNA (3 Years) Discontinued 11/17/2018, 11/06/2018 Pneumococcal Vaccine: 65+ Years Completed 07/05/2021, 06/23/2020 Hepatitis C Completed 03/02/2022 Dexa Scan (General) Completed 04/26/2022, 9 Influenza Adult Completed 06/18/2024, 04/11, 04/25/2023, Additional history exists Meningococcal B Vaccine Aged Out No l onger eligible based on patient's age to complete this topic Meningococcal Vaccine Aged Out No te[place]ilo [place] eligible based on patient's age to complete this topic RSV Immunizations Under 20 Months Aged Out No longer eligible based on patient's age to complete this topic Medical Devices Implanted Type Area Hand Cloth Folder Device Identifier Shelf Expiration Date Model / Serial / Lot One-Third Tubular Lcp Plates, With Collar Implanted:Qty: 1 on 10/24/2021 by Naseem Putnam MD at [facility] Plate Right: Ulna InSample [id number] / / 3.5 Mm Locking Screws, Self-Tapping, With Stardrive Recess Implanted:Qty: 2 on 10/24/2021 by Naseem Putnam MD at [facility] Screw Right: Ulna SYNTHES [id number] / / 3.5 Cortex Screws, Self-Tapping Implanted:Qty: 2 on 10/24/2021 by Naseem Putnam MD at [facility] Screw Right: Ulna SYNTHES [id number] / / Explanted Type Area Hand Cloth Folder Device Identifier Shelf Expiration Date Model / Serial / Lot 3.5 Cortex Screws, Self-Tapping Explanted:Qty: 2 on 10/24/2021 at [facility] Screw Right: Ulna SYNTHES [id number] / / Procedures Procedure Name Priority Date/Time Associated Diagnosis Comments OUTSIDE LAB (SCAN ORDER) 06/24/2024 OUTSIDE LAB (SCAN ORDER) 06/24/2024 OUTSIDE LAB (SCAN ORDER) 06/24/2024 OUTSIDE LAB (SCAN ORDER) 06/24/2024 OUTSIDE PT/INR (SCAN ORDER) 06/24/2024 MG/PCCL UDS W CONF Routine 06/18/2024 2: 42 PM GOLF RANGE ATTENDANT Long-term use of high-risk medication COLLECT.CAPILLARY (FNGR,HEEL,EAR) Routine 06/18/2024 1:34 PM GOLF RANGE ATTENDANT Type 2 diabetes mellitus with microalbuminuria, without long-term current use of insulin (CMS/HCC HHS/HCC) HEMOGLOBIN, GLYCOSYLATED Routine 06/18/2024 Type 2 diabetes mellitus with microalbuminuria, without long-term current use of insulin (CMS/HCC HHS/HCC) MAMMOGRAM GENERIC (SCAN ORDER) 05/28/2024 MAMMOGRAM GENERIC (SCAN ORDER) 05/28/2024 CT GENERIC 04/23/2024 OUTSIDE LAB COVID-19 (SCAN ORDER) Routine 04/22/2024 OUTSIDE LAB (SCAN ORDER) 04/22/2024 IMAGE GENERIC 04/16/2024 IMAGE GENERIC 04/14/2024 IMAGE GENERIC 04/14/2024 IMAGE GENERIC 04/10/2024 PATHOLOGY GENERIC (SCAN ORDER) 04/04/2024 PROCEDURE GENERIC (SCAN ORDER) 04/04/2024 PROCEDURE GENERIC (SCAN ORDER) 04/04/2024 PROCEDURE GENERIC (SCAN ORDER) 04/04/2024 LIPID PANEL Routine 11/30/2023 10:46 AM CDT Type 2 diabetes mellitus with microalbuminuria, without long-term current use of insulin (CMS/HCC HHS/HCC) Hypothyroidism, unspecified type Hyperlipidemia, unspecified hyperlipidemia type COLONOSCOPY GENERIC (SCAN ORDER) 05/25/2022 BONE DENSITY GENERIC (SCAN ORDER) 04/26/2022 HEPATITIS C ANTIBODY W/RFX TO HCV RNA Routine 03/02/2022 11:57 AM CDT Need for hepatitis C screening test COLOGUARD (SCAN ORDER) Routine 11/17/2018 from Last 3 Months or Most Recently Relevant to Health Maintenance Results * OUTSIDE PT/INR (SCAN ORDER) (06/24/2024) 06/24/2024 us [facility] Scanned SCANNING Final Resu lt * OUTSIDE LAB (SCAN ORDER) (06/24/2024) Only the most recent of5 resultswithin the time period is included. 06/24/2024 us Doc [facility] Scanned SCANNING Final Resu lt * (ABNORMAL) MG/PCCL UDS W CONF (06/18/2024 2:42 PM GOLF RANGE ATTENDANT) RESULT SUMMARY [facility] Comment: ?Prescribed ?Prescribed ?Not Prescribed ?Consistent ?Inconsistent ?Inconsistent ?Oxycodone ? PRESCRIBED DRUG 1 (U) Oxycodone [facility] FENTANYL SCREEN (U) NEGATIVE <0.5 ng/mL [facility] [place] MORPHINE (U) NEGATIVE <10 ng/mL [facility] [place] DESMETHYLTRAMADOL (U) NEGATIVE <100 ng/mL [facility] [place] TRAMADOL (U) NEGATIVE <100 ng/mL [facility] [place] TRAMADOL COMMENTS [facility] Comment:See LDT Notes AMPHETAMINES PM NEGATIVE <500 ng/mL [facility] [place] BARBITURATES PM (U) NEGATIVE <300 ng/mL [facility] [place] BENZODIAZEPINES PM (U) NEGATIVE <100 ng/mL [facility] [place] COCAINE METABOLITE PM (U) NEGATIVE <150 ng/mL [facility] [place] MARIJUANA METABOLITE PM (U) NEGATIVE CONFIRMED <20 ng/mL [facility] [place] MARIJUANA METABOLITE PM CONF (U) NEGATIVE <5 ng/mL [facility] [place] MARIJUANA COMMENTS Q [facility] [place] Comment:See LDT Notes METHADONE PM (U) NEGATIVE <100 ng/mL [facility] [place] [place] OPIATES PM (U) NEGATIVE CONFIRMED <100 ng/mL [facility] [place] CODEINE PM (U) NEGATIVE <50 ng/mL [facility] [place] HYDROCODONE PM (U) NEGATIVE <50 ng/mL [facility] [place] [place] HYDROMORPHONE PM (U) NEGATIVE <50 ng/mL [facility] [place] [place] MORPHINE PM (U) NEGATIVE <50 ng/mL [facility] [place] [place] NORHYDROCODONE PM (U) NEGATIVE <50 ng/mL [facility] [place] OPIATES COMMENTS [facility] [place] Comment:See LDT Notes OXYCODONE PM (U) POSITIVE(A) <100 ng/mL [facility] [place] [place] NOROXYCODONE PM (U) 3,216(H) <50 ng/mL [facility] [place] [place] NOROXYCODONE PM MEDMATCH (U) CONSISTENT [facility] [place] [place] OXYCODONE PM (U) 3,382(H) <50 ng/mL [facility] [place] [place] OXYCODONE PM MEDMATCH CONSISTENT [facility] [place] [place] OXYMORPHONE PM (U) 2,800(H) <50 ng/mL [facility] [place] [place] OXYMORPHONE PM MEDMATCH CONSISTENT [facility] [place] OXYCODONE COMMENTS Q [facility] [place] Comment:See Oxycodone Notes, LDT Notes CREATININE RANDOM (U) 170.4 > or = 20.0 mg/dL [facility] [place] pH PM (U) 5.6 4.5 - 9.0 [facility] [place] OXIDANT NEGATIVE <200 mcg/mL [facility] [place] NOTE [facility] Comment: This drug testing is for medical treatment only. Analysis was performed as non-forensic testing and these results should be used only by healthcare providers to render diagnosis or treatment, or to monitor progress of medical conditions. Oxycodone Notes: Oxycodone, Noroxycodone, Oxymorphone detected is consistent with the use of the drug Oxycodone. Oxymorphone detected is consistent with the use of the drug Oxymorphone. Oxymorphone can be a prescribed drug and is also a metabolite of Oxycodone. LDT Notes: Confirmation tests were developed and their analytical performance characteristics have been determined by [facility]. It has not been cleared or approved by the FDA. This assay has been validated pursuant to the CLIA regulations and is used for clinical purposes. medMATCH(R) enables providers to identify if drug use is consistent or inconsistent with a corresponding prescribed medication(s) list. Healthcare Providers needing Interpretation assistance, please contact us at [phone] ( ) M-F, 8am to 10pm EST URINE SPECIMEN / Unknown 06/18/2024 2:42 PM GOLF RANGE ATTENDANT 06/19/2024 4:56 PM GOLF RANGE ATTENDANT Narrative Resulting Agency Comment Performing Organization Information: ?Site ID: ?Name: [employer] ?Address: [address] [place] [id number] ?Director: William Elkins ?Site ID: [place] ?Name: [facility] ?Address: [address] [place] [phone] ?Director: Jose Miguel Gimenez MD Akhil Jay DO URINE ORDERABLES Final R esult Performing Organization Address [facility]/Va Hospital/ZIP Co de Phone Number [facility]ORTENCIA ORDERS Plan A Drink [facility] [address] [facility] [place] [address] Plan A Drink [place] [address] [place] [address] * HEMOGLOBIN, GLYCOSYLATED (06/18/2024) HGB A1C 6.7 % [facility] 06/18/2024 Akhil Jay DO LABORATORY Final Re sult Performing Organization Address [facility] Hospital/[facility] Co de Phone Number [facility] [address] [place] [address], * MAMMOGRAM GENERIC (SCAN ORDER) (05/28/2024) Only the most recent of2 resultswithin the time period is included. Anatomical Region Laterality Modality Other 05/28/2024 [facility] Scanned SCANNING Final Resu lt * CT GENERIC (04/23/2024) Anatomical Region Laterality Modality Other 04/23/[address] [facility] Scanned SCANNING Final Resu lt * OUTSIDE LAB COVID-19 (04/22/2024) CORONAVIRUS SARS COV 2 PCR (RESP) NOT DETECTED NOT DETECTED [facility] 04/22/[address] [facility] Scanned SCANNING Final Resu lt [facility] * IMAGE GENERIC (04/16/2024) Only the most recent of4 resultswithin the time period is included. Anatomical Region Laterality Modality Other 04/16/[address] [facility] Scanned SCANNING Final Resu lt * PATHOLOGY GENERIC (SCAN ORDER) (04/04/2024) 04/04/[address] [facility] Scanned SCANNING Final Resu lt * PROCEDURE GENERIC (SCAN ORDER) (04/04/2024) 04/04/[address] [facility] Scanned SCANNING Final Resu lt * PROCEDURE GENERIC (SCAN ORDER) (04/04/2024) 04/04/[address] [facility] Scanned SCANNING Final Resu lt * PROCEDURE GENERIC (SCAN ORDER) (04/04/2024) 04/04/2024 [facility] Scanned SCANNING Final Resu lt * (ABNORMAL) LIPID PANEL (11/30/2023 10:46 AM CDT) CHOLESTEROL 132 <200 MG/DL 11/30/2023 2:57 PM CDT [facility] TRIGLYCERIDES 183(H) <150 MG/DL 11/30/2023 2:57 PM CDT [facility] HDL 24(L) >40 MG/DL 11/30/2023 2:57 PM CDT [facility] LDL-C 71 <100 MG/DL 11/30/2023 2:57 PM CDT [facility] VLDL CALCULATION 37(H) 5 - 28 MG/DL 11/30/2023 2:57 PM CDT [facility] CHOL/HDL RATIO 5.5(H) 0.0 - 4.0 11/30/2023 2:57 PM CDT [facility] LDL/HDL 3.0(H) 0.41 - 2.13 11/30/2023 2:57 PM CDT [facility] NON HDL CHOLESTEROL 108 <140 MG/DL 11/30/2023 2:57 PM CDT [facility] 11/30/2023 10:4 6 AM CDT Akhil Jay DO LABORATORY Final Re sult -[facility] [address] [place] [address], * COLONOSCOPY GENERIC (05/25/2022) 05/25/2022 [facility] Scanned SCANNING Final Resu lt * BONE DENSITY GENERIC (04/26/2022) Anatomical Region Laterality Modality Other 04/26/2022 [facility] Scanned SCANNING Final Resu lt * HEPATITIS C ANTIBODY W/RFX TO HCV RNA ([facility] ONLY) (03/02/2022 11:57 AM CDT) HEPATITIS C AB NON-REACTI VE NON-REACT BROCK [facility] SIGNAL TO CUTOFF 0.01 <[address] [facility] Comment: HCV antibody was non-reactive. There is no laboratory evidence of HCV infection. In most cases, no further action is required. However, if recent HCV exposure is suspected, a test for HCV RNA (test code 99869) is suggested. For additional information please refer to http://education.HALO2CLOUD/faq/WIU98r5 (This link is being provided for informational/ educational purposes only.) 03/02/2022 11:5 7 AM CDT 03/03/2022 5:39 PM CDT us Akhil Jay DO LABORATORY Final Re sult [facility] [address] [place] [address] * COLOGUARD (SCAN) (11/17/2018) COLOGUARD Comment:NEGATIVE Stool specimen (specimen) 11/17/2018 us Documents Scanned SCANNING Edited Result - Final from Last 3 Months or Most Recently Relevant to Health Maintenance Additional Health Concerns Infection Onset Date Last Indicated ESBL - Extended Spectrum Bet a-lactamase Comment:10/18/21 +ESBL Urine 10/20/2021 10/20/2021 Insurance [employer] Care Teams Motor Assembler Relationship Specialty Start Date End Date Akhil Jay DO [address] [place] [address] PCP - General FAMILY PRACTICE 09/24/18 Redd Leary MD [address] [place] [address] Consulting Physician GENERAL SURGERY 02/03/19 Josefa Alvarado MD [address] [place] [address] [phone] Referring Physician RADIATION ONCOLOGY 02/03/19 Clemente Bond MD [address] [place] [address] Referring Physician MEDICAL ONCOLOGY 02/03/19 Sada Woodard DO [address] [place] [address] DERMATOLOGY 02/13/19 Hanh Arguelles, RN [address] [place] [address] Registered Nurse CARE MANAGEMENT 09/08/22
--- OUTSIDE RECORDS SUMMARY | 2024-07-05 11:19 | XMS_ITS | Encounter Summary ---
Author Organization [facility] Address [address] [facility] [place] [address] Care Team Providers Care Key Cutter Name Role Phone Akhil Jay DO Primary Care Provider + Encounter Details Date Type Department Care Team (Late st Contact Info) Description 02/12/2019 Lab Requisition [facility] [address] [facility], [place] [phone] Sada Woodard DO [address] [facility] 3 [place] [address] Social History Tobacco Use Types Packs/Day Years Used Date Smoking Tobacco: Never Assessed Sex and Gender Information Value Date Recorded Sex Assigned at Not on file Gender Identity Not on file Sexual Orientation Not on file documented as of this encounter Plan of Treatment Not on file documented as of this encounter Procedures Procedure Name Priority Date/Time Associated Diagnosis Comments IMMUNOFLUORESCENT STUDY DERM Routine 02/11/2019 12:00 AM CDT documented in this encounter Results * IMMUNOFLUORESCENT STUDY DERM (02/11/2019 12:00 AM CDT) Case Report Dermatopathol ogy Report ? Case: [id number] ? Authorizing Provider: ??Sada Woodard, ?? Collected: ? 02/11/2019 12:00 AM ? Ordering Location: ? [facility] ?Received: ?02/12/2019 07:19 AM ? Pathologist: ? Krista Quesada MD ? Specimen: ?Skin, left back perilesional ? 9 2:31 PM CDT DERMATOPATHOLOGY LABORATORY Final Diagnosis Specimen A. SKIN, left back perilesional: COLLOID BODIES (L98.9) (see microscopic description) 9 2:31 PM CDT DERMATOPATHOLOGY LABORATORY Direct Immunofluorescence Report - Specimen A Specimen A IgA IgM IgG C3 CollV Fibrinogen Epidermis Negative Negative Negative Negative Negative Negative Basement Membrane Negative Negative Negative Negative 2+ Negative Vessels Negative Negative Negative Negative 2+ Negative Interstitium Colloid bodies Colloid bodies Negative Negative Negative Non specific 9 2:31 PM CDT DERMATOPATHOLOGY LABORATORY Clinical History Pt with hx BP onset pruritic urticarial plaques - new dx breast Ca. 9 2:31 PM CDT DERMATOPATHOLOGY LABORATORY Gross Description Specimen A: Received is one [employer] media filled container labeled with the patient's name and designated left back perilesional. The specimen consists of a punch measuring [id number]. The specimen is submitted in whole for direct immunofluores cence testing. 9 2:31 PM CDT DERMATOPATHOLOGY LABORATORY Microscopic Description Specimen A. SKIN, left back perilesional: Controls were run in parallel. There is C3 and IgM in the papillary dermis consistent with colloid bodies. Staining is negative with IgA and IgG. Collagen IV stains the basement membrane zone and vessels. Fibrinogen shows non-specific staining. Colloid bodies represent dyskeratotic keratinocytes that can be seen in lichenoid / interface dermatitis or in areas of chronic irritation / rubbing. 9 2:31 PM CDT DERMATOPATHOLOGY LABORATORY Disclaimer An external and internal positive and negative controls are appropriate for the histochemical , immunohistoch emical and immunofluores cence stain(s) in this case (if any), except where stated explicitly. The performance characteristi cs of the stain(s) cited in this report were developed and its performance characteristi c determined by the Dermatopathol ogy Laboratory at [facility], directed by Dr. Noble Quesada. These tests need not be, and therefore are not, approved by the [place] Food and Drug Administratio n. The tests are used for clinical purposes. Billing Codes Specimen Charges Stain Charges 22488 80144 51907 47585 55488 93914 1 1 1 1 1 1 9 2:31 PM CDT DERMATOPATHOLOGY LABORATORY Embedded Images 2:31 PM CDT DERMATOPATHOLOGY LABORATORY Pathology/Cytolog y TISSUE SPECIMEN FROM SKIN / Unknown 02/11/2019 02/12/2019 7:19 AM CDT Sada Woodard DO LAB - PATHOLOGY/C YTOLOGY ORDERABLES DERMATOPATHOLOGY LABORATORY [facility] - Department of Dermatology [facility] [facility], 5th Floor Lab B [address] [phone] documented in this encounter Visit Diagnoses Not on filedocumented in this encounter Care Teams Key Cutter Relationship Specialty Start Date End Date Akhil Jay DO [address] [place] [address] PCP - General 05/31/22 documented as of this encounter
--- OUTSIDE RECORDS SUMMARY | 2024-07-05 11:19 | XMS_ITS | Encounter Summary ---
Author Organization [facility] Address [address] [place] [address] Phone Care Team Providers Care Sales Training Representative Name Role Phone Akhil Jay DO Unavailable Sada Woodard DO Unavailable [phone] Akhil Jay DO Primary Care Provide r Varun Dunn MD, Clemente Unavailable + [phone] Sarah Rowell RN Unavailable [phone] Sarah Rowell RN Unavailable [phone] Josefa Alvarado MD Unavailable [phone] Redd Leary MD Unavailable [phone] Jessica Henriquez RN Unavailable [phone] Donna Mayberry NP Unavailable + [phone] Irina Hazel MD Unavailable Josefa Alvarado MD Unavailable +[phone] Encounter Details Date Type Department Care Team (Late st Contact Info) Description 12/05/2020 Ophth Exam [facility] Ophthalmology [address] [place] [address] 1st [place] [address] Mamta Beauchamp MD [address] [place] [address] Social History Tobacco Use Types Packs/Day Years [...] on file Legal Sex 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:32 PM GAMB 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 Gender Identity Not on file Sexual Orientation [...] COVID: Suspected 07/12/2022 07/12/2022 07/12/2022 1:31 PM GAMB CUTTER COVID: Suspected 09/07/2022 09/07/2022 09/07/2022 5:37 PM CDT documented as of this encounter Eye Exam Visual Acuity Right eye Left eye Near cc 20/20 20/25-2 Tonometry (Tonopen, 1:37 PM) Right eye Left eye Pressure 19 19 Pupils Pupils Dark Light Shape React APD Right eye PERRL 3 2 Round Brisk None Left eye PERRL 3 2 Round Brisk None Extraocular Movement Right eye Left eye Up gaze -1 -1 -1 -1 -1 -1 Right/left gaze 0 -- 0 0 -- 0 Down gaze 0 0 0 0 0 0 Neuro/Psych Oriented x3: Yes Mood/Affect: Normal Dilation Both eyes: 1.0% Mydriacyl, 2 .5% Phenylephrine Color Right eye Left eye Ishihara 05/22 External Exam Right eye Left eye External Normal Periorbital ron a, vesicles in V1 distribution, negative Hutchinsons sign Slit Lamp Exam Right eye Left eye Lids/Lashes Normal Vesicles along u pper lid margin Conjunctiva/Sclera White and quiet 2+ injection and chemosis Cornea Clear Clear, no Epithe lial defect Anterior Chamber Deep and formed Deep and quiet Iris Round and reactive Round and remigio ctive Lens PCIOL centered, 2+ PCO PCIOL maribel tered, 2+ PCO Anterior Vitreous Normal Normal Fundus Exam Right eye Left eye Posterior Vitreous Normal Normal Disc Sharp margins, no el evation, no pallor Sharp margins, no elevation, no pallor C/D Ratio 0.3 0.3 Macula Flat, attached Flat, attached Vessels Normal course and caliber Normal couse and caliber Periphery Attached Attached Care Teams Sales Training Representative Relationship Specialty Start Date End Date Akhil Jay DO PCP - General Family Medicine 10/16/18 Akhil Jay DO Family Medicine 10/04/18 09/13/22 Sada Woodard DO Internal Medicine 10/07/18 Clemente Bond Jr., MD Medical Oncologist/Bread Panner Medical Oncology 04/09/19 01/02/23 Sarha Rowell RN [address] [address] [facility] Outpatient Supervisor Agricultural Education 02/16/21 03/16/21 Sarah Rowell RN [address] [address] [facility] Outpatient Supervisor Agricultural Education 04/12/21 04/12/21 Josefa Alvarado MD [address] [address] Radiation Oncologist Radiation Oncology 04/27/21 Redd Leary MD [address] [place] [address] Surgeon General Surgery 04/27/21 Jessica Henriquez, RN [address] [address] [facility] Outpatient Supervisor Agricultural Education 09/14/22 10/02/22 Donna Mayberry NP [address] [place] [address] Nurse Practitioner Medical Oncology 01/03/23 Irina Hazel MD [address] [place] [address] Consulting Physician Pain Management 10/02/23 Josefa Alvarado MD [address] [place] [address] Radiation Oncologist Radiation Oncology 01/03/24 documented as of this encounter
--- OUTSIDE RECORDS SUMMARY | 2024-07-05 11:19 | XMS_ITS | Patient Health Summary ---
Author Organization [facility] Address [address] [facility] [place] [address] Care Team Providers Care Recruiting And Selection Consultant Name Role Phone Akhil Jay DO Primary Care Provider + Note from [facility],non-owned Affiliates and Associated Physician Practices is amultiple site organization consisting of ambulatory clinics and hospital sitesin [place], [place], [place] and [place]. This disclosure is being madepursuant to the Care Everywhere program and may not contain all information available regarding this patient. Last updated 18.[facility] Social History Tobacco Use Types Packs/Day Years Used Date Smoking Tobacco: Never Assessed Sex and Gender Information Value Date Recorded Sex Assigned at Not on file Gender Identity Not on file Sexual Orientation Not on file Procedures * DERMATOPATHOLOGY(Performed 03/25/2019) * IMMUNOFLUORESCENT STUDY DERM(Performed 02/11/2019) * DERMATOPATH TECHNICAL REPORT(Performed 02/11/2019) * DERMATOPATHOLOGY(Performed 06/13/2011) * DERMATOPATHOLOGY(Performed 06/13/2011) Results * DERMATOPATHOLOGY (03/25/2019 12:00 AM CDT) Only the most recent of3 resultswithin the time period is included. Case Report Dermatopathology Report ? Case: [id number] ? Authorizing Provider: ??Sada Woodard, DO ?? Collected: ? 03/25/2019 12:00 AM ? Ordering Location: ? [facility] ?Received: ?03/26/2019 06:26 AM ? Pathologist: ? Corinne Tolentino MD ? Specimen: ?Skin, mid back ? 9 10:19 AM [facility] DERMATOPATHOLOGY LABORATORY Final Diagnosis Specimen A. SKIN, mid back: INTRADERMAL MELANOCYTIC NEVUS (D22.5) 9 10:19 AM [facility] DERMATOPATHOLOGY LABORATORY Clinical History ISK vs IDN vs met - new dx of breast CA new painful papule. 9 10:19 AM [facility] DERMATOPATHOLOGY LABORATORY Gross Description Specimen A: Received is one formalin filled container labeled with the patient's name and designated mid back. The specimen consists of a shave measuring 3p7m9tj. Jar 0. 9 10:19 AM [facility] DERMATOPATHOLOGY LABORATORY Microscopic Description Specimen A. SKIN, mid back: There are nests of cytologically bland melanocytes within the dermis that mature with depth. 9 10:19 AM [facility] DERMATOPATHOLOGY LABORATORY Disclaimer An external and internal positive and negative controls are appropriate for the histochemical, immunohistochemical and immunofluorescence stain(s) in this case (if any), except where stated explicitly. The performance characteristics of the stain(s) cited in this report were developed and its performance characteristic determined by the Dermatopathology Laboratory at [facility], directed by Dr. Noble Quesada. These tests need not be, and therefore are not, approved by the [place] Food and Drug Administration. The tests are used for clinical purposes. Billing Codes Specimen Charges Stain Charges 70178 1 9 10:19 AM CDT DERMATOPATHOLOGY LABORATORY Embedded Images 9 10:19 AM CDT DERMATOPATHOLOGY LABORATORY Pathology/Cytolog y TISSUE SPECIMEN FROM SKIN / Unknown 03/25/2019 03/26/2019 6:26 AM CDT Sada Woodard DO LAB - PATHOLOGY/C YTOLOGY ORDERABLES Performing Organization Address [facility]/State/ZIP Co de Phone Number DERMATOPATHOLOGY LABORATORY [facility] - Department of Dermatology [address] [place] [place] [address], 5th [place] [address], [facility] [phone] * DERMATOPATH TECHNICAL REPORT (02/11/2019 12:00 AM CDT) Case Report Dermatopathology Report ? Case: [id number] ? Authorizing Provider: ??Sada Woodard, ?? Collected: ? 02/11/2019 12:00 AM ? Ordering Location: ? [facility]ermPath Lab ?Received: ?02/12/2019 06:15 AM ? Pathologist: ? Krista Quesada MD ? Specimen: ?Skin, left back lesional ? 1:12 PM CDT DERMATOPATHOLOGY LABORATORY Addendum 1 At the request of the diagnosing physician, the technical component for GMS was performed by [facility] Dermatopathology Laboratory. 1:12 PM CDT DERMATOPATHOLOGY LABORATORY Addendum electronically signed by Krista Quesada MD on 02/14/2019 at 1:12 PM Clinical History Pt with hx BP new on set pruritic urticarial plaques. New dx Breast Ca. 1:12 PM CDT DERMATOPATHOLOGY LABORATORY Gross Description Specimen A: Received is one formalin filled container labeled with the patient's name and designated left back lesional. The specimen consists of a punch measuring 3m6h3mg, bisected. Jar 0. [facility] Dermatopathology Laboratory performed the technical component only. [...] characteristic determined by the Dermatopathology Laboratory at [facility], directed by Dr. Noble Quesada. These tests need not be, and therefore are not, approved by the [place] Food and Drug Administration. The tests are used for clinical purposes. 1:12 PM T DERMATOPATHOLOGY LABORATORY Pathology/Cytolog y TISSUE SPECIMEN FROM SKIN / Unknown 02/11/2019 02/12/2019 6:15 AM CDT Sada Woodard DO LAB - PATHOLOGY/C YTOLOGY ORDERABLES DERMATOPATHOLOGY LABORATORY [facility] - Department of Dermatology [address] [place] [place] [address], 5th Floor Lab [address] [phone] * IMMUNOFLUORESCENT STUDY DERM (02/11/2019 12:00 AM CDT) Case Report Dermatopathol ogy Report ? Case: [id number] ? Authorizing Provider: ??Sada Woodard, ?? Collected: ? 02/11/2019 12:00 AM ? Ordering Location: ? [facility]erm[facility] Lab ?Received: ?02/12/2019 07:19 AM ? [...] Gross Description Specimen A: Received is one Clyde's media filled container labeled with the patient's name and designated left back perilesional. The specimen consists of a punch measuring 5c4a2rx. The specimen is submitted in whole for direct immunofluores cence testing. 2:31 PM CDT DERMATOPATHOLOGY LABORATORY Microscopic Description [...] in areas of chronic irritation / rubbing. 2:31 PM CDT DERMATOPATHOLOGY LABORATORY Disclaimer An external and internal positive and negative controls are appropriate for the histochemical , immunohistoch emical and immunofluores cence stain(s) in this case (if any), except where stated explicitly. The performance characteristi cs of the stain(s) cited in this report were developed and its performance characteristi c determined by the Dermatopathol ogy Laboratory at [facility], directed by Dr. Noble Quesada. These tests need not be, and therefore are not, approved by the [place] Food and Drug Administratio n. The tests are used for clinical purposes. Billing Codes Specimen Charges Stain Charges [address] 61882 1 1 1 1 1 1 9 2:31 PM CDT DERMATOPATHOLOGY LABORATORY Embedded Images 2:31 PM CDT DERMATOPATHOLOGY LABORATORY Pathology/Cytolog y TISSUE SPECIMEN FROM SKIN / Unknown 02/11/2019 02/12/2019 7:19 AM CDT Sada Woodard DO LAB - PATHOLOGY/C YTOLOGY ORDERABLES DERMATOPATHOLOGY LABORATORY [facility] - Department of Dermatology [address] [place] [place] [address], [address]th [place] [address], [facility] [phone] Care Teams Recruiting And Selection Consultant Relationship Specialty Start Date End Date Akhil Jay DO [address] [place] [address] PCP - General 05/31/22
--- OUTSIDE RECORDS SUMMARY | 2024-07-05 11:19 | XMS_ITS | Encounter Summary ---
Author Organization [facility] Address [address] [place] [address] Care Team Providers Care Eye Dropper Assembler Name Role Phone Akhil Jay DO Unavailable WoodardSada archerlesly BROUSSARD Unavailable [phone] Akhil Jay DO Primary Care Provide r Varun Dunn MD, Clemente Unavailable + [phone] Sarah Rowell RN Unavailable [phone] Sarah Rowell RN Unavailable [phone] Josefa Alvarado MD Unavailable +[phone] Redd Leary MD Unavailable [phone] Jessica Henriquez RN Unavailable [phone] Donna Mayberry NP Unavailable + [phone] Irina Hazel MD Unavailable Josefa Alvarado MD Unavailable +[phone] Encounter Details Date Type Department Care Team (Late st Contact Info) Description 02/05/[address] [phone] La Nena Barney, GREG Social History Tobacco Use Types Packs/Day Years [...] on file 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 Gender Identity Not on file Sexual Orientation [...] COVID: Suspected 07/12/2022 07/12/2022 07/12/2022 1:31 PM DIVING COACH COVID: Suspected 09/07/2022 09/07/2022 09/07/2022 5:37 PM CDT documented as of this encounter Care Teams Eye Dropper Assembler Relationship Specialty Start Date End Date Akhil Jay DO PCP - General Family Medicine 10/16/18 Akhil Jay DO Family Medicine 10/04/18 09/13/22 Sada Woodard DO Internal Medicine 10/07/18 Clemente Bond Jr., MD Medical Oncologist/Cutter Operator Brick Medical Oncology 04/09/19 01/02/23 Sarah Rowell, GREG [address] [address] [facility]OP Outpatient Knockdown Worker 02/16/21 03/16/21 Sarah Rowell RN [address] [address] [facility]OP Outpatient Knockdown Worker 04/12/21 04/12/21 Josefa Alvarado MD [address] [address] Radiation Oncologist Radiation Oncology 04/27/21 Redd Leary MD [address] [place] [address] [phone] Surgeon General Surgery 04/27/21 Jessica Henriquez RN [address] [address] SHOP Outpatient Knockdown Worker 09/14/22 10/02/22 Donna Mayberry NP [address] [place] [address] [phone] Nurse Practitioner Medical Oncology 01/03/23 Irina Hazel MD [address] [place] [address] [phone] Consulting Physician Pain Management 10/02/23 Josefa Alvarado MD [address] [place] [address] [phone] Radiation Oncologist Radiation Oncology 01/03/24 documented as of this encounter
--- OUTSIDE RECORDS SUMMARY | 2024-07-05 11:19 | XMS_ITS | Encounter Summary ---
Author Organization [facility] Address [address] [place] [address] Phone Care Team Providers Care Thread Cutter Tender Name Role Phone Akhil Jay DO Unavailable Sada Woodard DO Unavailable [phone] Akhil Jay DO Primary Care Provide r Varun Dunn MD, Clemente Unavailable + [phone] Sarah Rowell RN Unavailable [phone] Sarah Rowell RN Unavailable [phone] Josefa Alvarado MD Unavailable [phone] Redd Leary MD Unavailable [phone] Jessica Henriquez RN Unavailable [phone] Donna Mayberry NP Unavailable + [phone] Irina Hazel MD Unavailable Josefa Alvarado MD Unavailable +[phone] Encounter Details Date Type Department Care Team (Late st Contact Info) Description 12/29/2020 Orders Only [facility] Scanning, Provider [...] on file 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 Gender Identity Not on file Sexual Orientation Not on file documented as of this encounter Plan of Treatment Not on file documented as of this encounter Procedures Procedure Name Priority Date/Time Associated Diagnosis Comments SCAN - LABS 12/29/2020 documented in this encounter Results * SCAN - LABS (12/29/2020) us Provider Scanning Final Result documented in [...] COVID: Suspected 07/12/2022 07/12/2022 07/12/2022 1:31 PM SALES ANALYTICS MANAGER COVID: Suspected 09/07/2022 09/07/2022 09/07/2022 5:37 PM CDT documented as of this encounter Care Teams Thread Cutter Tender Relationship Specialty Start Date End Date Akhil Jay DO PCP - General Family Medicine 10/16/18 Akhil Jay DO Family Medicine 10/04/18 09/13/22 Sada Woodard DO Internal Medicine 10/07/18 Clemente Bond Jr., MD Medical Oncologist/Roof [facility]ter Medical Oncology 04/09/19 01/02/23 Sarah Rowell RN [address] [address] SHOP Outpatient Professor Of Vegetable Science 02/16/21 03/16/21 Sarah Rowell RN [address] [address] SHOP Outpatient Professor Of Vegetable Science 04/12/21 04/12/21 Josefa Alvarado MD [address] [address] Radiation Oncologist Radiation Oncology 04/27/21 Redd Leary MD [address] [place] [address] [phone] Surgeon General Surgery 04/27/21 Jessica Henriquez RN [address] [address] SHOP Outpatient Professor Of Vegetable Science 09/14/22 10/02/22 Donna Mayberry NP [address] [place] [address] [phone] Nurse Practitioner Medical Oncology 01/03/23 Irina Hazel MD [address] [place] [address] Consulting Physician Pain Management 10/02/23 Josefa Alvarado MD [address] [place] [address] [phone] Radiation Oncologist Radiation Oncology 01/03/24 documented as of this encounter
--- OUTSIDE RECORDS SUMMARY | 2024-07-05 11:19 | XMS_ITS | Encounter Summary ---
Author Organization [facility] Address [address] [place] [address]. [place] [address] [place] [address] Care Team Providers Care Traffic Sign Supervisor Name Role Phone Pierre Akhil Genesis DO Primary Care Provider + Redd Leary MD Unavailable [phone] Josefa Alvarado MD Unavailable [phone] Clemente Bond MD Unavailable [phone] Sada Woodard DO Unavailable +[phone] Hanh Arguelles RN Unavailable [phone] Encounter Details Date Type Department Care Team (Latest Contact Info) Description 05/21/2024 Scan HEALTH INFO SRVCS Scanned, Doc Med Group Social History Tobacco Use Types Packs/Day Years Used Date Smoking Tobacco: Former Cigarettes 30 1 976 - 2005 Passive Smoke Exposure: Never Smokeless Tobacco: Former Comments:Former, Quit 2005 Alcohol Use Standard Drinks/Week Comments No 0 (1 standard drink = 0.6 oz pur e alcohol) NA AUDIT-C Answer Date Recorded Frequency of Alcohol Consumption Never 09/24/2018 Average Number of Drinks Not on file 019 Frequency of Binge Drinking Not on file 09/09 PHQ-2 Answer Date Recorded Patient Health Questionnaire-2 Score 0 06/20/2023 Comments No Sex and Gender Information Value Date Recorded Sex Assigned at Not on file Legal Sex Female 2:40 PM CDT Gender Identity Not on file Sexual Orientation Not on file documented as of this encounter Plan of Treatment Upcoming Encounters Date Type Department Care Team (Late st Contact Info) Description 08/14/2024 2:00 PM SOUND EFFECTS TECHNICIAN Appointment [facility] [place] [address] Akhil Jay DO [address] [place] [address] 08/20/2024 11:20 AM CDT Office Visit [facility] Family [facility] - [place] [address] [place] [address] Akhil Jay DO [address] [place] [address] documented as of this encounter Visit Diagnoses Not on filedocumented in this encounter Additional Health Concerns Infection Onset Date Last Indicated Resolved Time ESBL - Extended Spectrum Bet a-lactamase Comment:10/18/21 +ESBL Urine 10/20/2021 10/20/2021 Assessment Noted Time PHQ-9 Depression Total Score: 0 11/30/19 22 2:27 PM CDT documented as of this encounter Care Teams Traffic Sign Supervisor Relationship Specialty Start Date End Date Akhil Jay DO [address] [place] [address] PCP - General FAMILY PRACTICE 09/24/18 Redd Leary MD [address] [place] [address] Consulting Physician GENERAL SURGERY 02/03/19 Josefa Alvarado MD [address] [place] [address] Referring Physician RADIATION ONCOLOGY 02/03/19 Clemente Bond MD [address] [place] [address] [phone] Referring Physician MEDICAL ONCOLOGY 02/03/19 Sada Woodard DO [address] [place] [address] DERMATOLOGY 02/13/19 Hanh Arguelles, RN [address] [facility] [address] [place] [address] Registered Nurse CARE MANAGEMENT 09/08/22 documented as of this encounter
[2024-07-05] MEDS: RAPID SEQUENCE INTUBATION KIT 1 EACH (11:20)
[2024-07-05] MEDS: ACETAMINOPHEN 650 MG SUPPOSITORY (11:20)
--- OUTSIDE RECORDS SUMMARY | 2024-07-05 11:20 | XMS_ITS | Referral Summary ---
Author Organization [facility] [address] [facility] Address [address] [place] [address] Care Team Providers Care Yard Caller Name Role Phone Sada Woodard DO Unavailable [phone] Akhil Jay DO Primary Care Provide r Redd Leary MD Unavailable [phone] Donna Mayberry ELECTROMATIC TYPIST Unavailable + [phone] Irina Hazel MD Unavailable Josefa Alvarado MD Unavailable [phone] Encounters Date Type Department Care Team Description 05/30/2024 Orders Only [facility] Hematology [address] [facility] [address] [place] [phone] Provider, MD Crys from Last 3 Months Allergies Active Allergy Reactions Criticality Noted Date [...] 1 tablet (100 mcg total) by mouth bag loader before breakfast Active naproxen (NAPROSYN) 375 mg [...] 06/27/2022 Assessment & Plan (06/27/2022 10:29 AM APPRENTICE ELECTRICIAN): Epilated multiple lashes at slit lamp. Neutropenia 03/23/2022 Generalized weakness 02/22/2022 JOANNE (acute kidney injury) 02/22/2022 Pseudophakia of both eyes 01/26/2022 Assessment & Plan (01/26/2022 1:52 PM CDT): SRx given Intermediate stage nonexudat juli age-related macular degeneration of both eyes 11/28/2021 Assessment & Plan (06/29/2023 8:41 AM APPRENTICE ELECTRICIAN): Doing well with AREDS2 vitamins. Stable. Assessment [...] notes: Assessment & Plan (06/23/2022 1:26 PM APPRENTICE ELECTRICIAN): She has no active scleritis today. Continue [...] Encouraged pt to discuss skin pain with beef selector and/or PCP. Recommended pt go to ER with worsening of pain or vision changes. Pt scheduled to see Dr. Montilla on Sunday10/24/2021. Neurotrophic keratitis of left eye 09/09/2021 Assessment & Plan (06/29/2023 8:41 AM APPRENTICE ELECTRICIAN): Extensive history of HZO OS, bullous pemphigoid, [...] continue this. Continue moxifloxacin TID OS. Recommended daytime caregiver use of press n seal wrap over [...] reduced acuity. Start moxifloxacin TID OS. Recommended daytime caregiver tape tarsorrhaphy, removing tape only for drop instillation. Demonstrated proper taping technique in office today. Close follow up with cornea service warranted. Will have patient seen for follow up in [facility] in [address] Tobias. [...] exam. Assessment & Plan (06/23/2022 1:47 PM APPRENTICE ELECTRICIAN): h/o HZO OS (11/2020) c/b neurotrophic keratitis, [...] OS. Assessment & Plan (08/18/2021 3:21 PM APPRENTICE ELECTRICIAN): H/o HZ conjunctivitis without corneal lesions. Complicated course for HZ dermatitis that did not resolve, and was recently diagnosed with bullous pemphigoid lesions on her forehead and scalp. Continue aggressive lubrication OS. Will arrange for next available cornea appointment to r/o ocular involvement from pemphigoid. Herpes zoster without complication 04/29/2021 Assessment & Plan (07/05/2021 1:14 PM APPRENTICE ELECTRICIAN): - Will continue patients valacyclovir 1g TID [...] concerns. Assessment & Plan (05/26/2021 8:47 AM APPRENTICE ELECTRICIAN): - Pt's ophthalmology appointment rescheduled for 05/30, [...] concerns. Assessment & Plan (04/29/2021 12:27 PM APPRENTICE ELECTRICIAN): - Pt with upcoming ophthalmology appointment for [...] 04/05/2021 Assessment & Plan (04/29/2021 12:27 PM APPRENTICE ELECTRICIAN): - Continue IV ceftriaxone 2g q24 hrs [...] uptitrate as needed -Continue ASA for now. [id number] score of 4 and if recurrent episodes [...] skin. Assessment & Plan (07/07/2021 4:12 PM APPRENTICE ELECTRICIAN): With h/o encephalopathy. Eye involvement was limited [...] prn. Assessment & Plan (05/30/2021 3:24 PM APPRENTICE ELECTRICIAN): With + hx encephalopathy, only conjunctivitis. No [...] 03/14/2021 Assessment & Plan (06/29/2023 8:42 AM APPRENTICE ELECTRICIAN): Strict BS control, annual dilated eye exams recommended. Assessment & Plan (08/18/2021 3:18 PM APPRENTICE ELECTRICIAN): Strict BS control, annual dilated eye exams [...] stage I L-breast invasive ductal carcinoma (ER+, ID+) s/p lumpectomy (Feb 2019) + adjuvant anastrozole + radiotherapy, and recent (12/05/20) V1 zoster ophthalmicus s/p 14-day course of valtrex; transferred to the ICU from an OSH ([facility]) for confusion. - OSH CT head reported [...] trigger for PRES remains unclear, and no ATHLETIC AGENT toxicity has been reported with dupixent, I would not disregard it as a potential offender/contributor to her clinical syndrome given the temporal relationship between it's use and the onset of symptoms-->defer to pt's beef selector to determine if alternative agents should be [...] time. Please contact the Team 3 ID ELECTROMATIC TYPIST M-F, 8-4; or the Attending at the phone numbers in care team with any questions or concerns. After hours, please contact the ID fellow mobile solutions architect. Assessment & Plan (02/09/2021 5:16 PM CDT): [...] a prior issue. Would also defer to beef selector given h/o bullous pemphigoid. Return in 2 [...] bullous pemphigoid will touch base with patients beef selector as well. MGUS (monoclonal gammopathy of unknown [...] Cancer Staging:Pathologic:Stage IA(pT1c, pN0, cM0, G1, ER+, ID-, HER2-) - Signed by Yareli Vasquez PA on 04/27/2021 Assessment & Plan (04/05/2021 9:32 PM CDT): -s/p lumpectomy and XRT -Continue anastrozole -Follows with Dr. Esposito of [facility] oncology Assessment & Plan (02/15/2021 11:17 AM CDT): Stage I ER/ID + breast cancer s/p L lumpectomy 02/2019 f/b adjuvant anastrazole and radiation - Follows with Dr. Varun Tam anastrozole hs Assessment & Plan (02/14/2021 12:58 PM CDT): Stage I ER/ID + breast cancer s/p L lumpectomy 02/2019 f/b adjuvant anastrazole and radiation - Follows with Dr. Varun Tam anastrozole hs Assessment & Plan (02/13/2021 1:09 PM CDT): Stage I ER/ID + breast cancer s/p L lumpectomy 02/2019 f/b adjuvant anastrazole and radiation - Follows with Dr. Varun burks hs Assessment & Plan (02/12/2021 12:59 PM CDT): Stage I ER/ID + breast cancer s/p L lumpectomy 02/2019 f/b adjuvant anastrazole and radiation - Follows with Dr. Varun burks hs Assessment & Plan (02/11/2021 2:06 PM CDT): Stage I ER/ID + breast cancer s/p L lumpectomy 02/2019 f/b adjuvant anastrazole and radiation - Follows with Dr. Varun Tam anastrozole hs Assessment & Plan (02/10/2021 6:00 PM CDT): Stage I ER/ID + breast cancer s/p L lumpectomy 02/2019 f/b adjuvant anastrazole and radiation - Follows with Dr. Varun Tam anastrozole hs Assessment & Plan (02/09/2021 5:07 PM CDT): Stage I ER/ID + breast cancer s/p L lumpectomy 02/2019 [...] Microalbuminuria due to type 2 diabetes mellitus ([facility]) 09/30/2018 CKD (chronic kidney disease) stage 2, [...] proceed. Assessment & Plan (08/18/2021 3:18 PM APPRENTICE ELECTRICIAN): Return for next available YAG procedure slot for OD. Will plan for OS as soon as stable from cornea perspective. Assessment & Plan (03/28/2021 4:42 PM CDT): Appear visually significant- best corrected to 20/50 OD, OS with refraction today. 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 Consider YAG once anterior surface and zoster dermatitis is improved. Immunizations Name Administration Dates Next Due Influenza, Quadrivalent, Zoila l Culture-based MDCK, Preservative Free, Antibiotic Free, Intramuscular 04/15/2019 Influenza, Quadrivalent, Hig h Dose, Preservative Free, Intrr 04/07/2021 Influenza, Quadrivalent, Spl it, Preservative Free, Intramuscular 05/14/2018 Influenza, Trivalent, High D ose, Split, Preservative Free, Intramuscular 05/14/2018 Influenza, Unspecified 03/11/2022,05/14/2018,06/2017 Social History Tobacco Use Types Packs/Day Years [...] 09/14/2022 How often do you attend chur or zoroastrianism services? Never 09/14/2022 Do you belong to any clubs o r organizations such as baptist groups, unions, fraternal or athletic groups, or [...] place to sleep or slept in a usp (including now)? No 09/14/2022 Personal Safety Answer Date Recorded Have you ever been in or are you currently in a harmful physical or emotional relationship or is someone making you feel afraid or unsafe? Denies 09/08/2022 Comments No Sex and Gender Information Value Date Recorded Sex Assigned at Not on file Legal Sex Female 9:32 PM APPRENTICE ELECTRICIAN Gender Identity Not on file Sexual Orientation [...] 01/28/2024 3:42 PM CDT Plan of Treatment Not on file Goals Goal Patient Goal Type Associated Problems Recent Progress Patient-Stated? Author CCM Chronic Pain Care Plan Chronic Care Management No change(10/24 1:36 PM CDT) No Kareen Hopkins RN Note: Problem: Chronic Pain Goals: 1. Minimize further functional decline 2. Maximize quality of life 3. Control pain Strategies: - Activity/exercise program recommendation - Conservative stepwise pain medicine strategy with multi-disciplinary approach - Recommend healthy lifestyle strategies and compensatory methods as needed Procedures Procedure Name Priority Date/Time Associated Diagnosis Comments SCREENING MAMMOGRAM Schedule Routine, Read Routine (OP Routine) 05/28/2024 8:53 AM APPRENTICE ELECTRICIAN RENAL FUNCTION PANEL Routine 01/22/2024 2:15 PM CDT CKD (chronic kidney disease) stage 2, GFR 60-89 ml/min LIPID PANEL STAT 09/07/2022 2:11 PM CDT ALBUMIN CREATININE RATIO, URINE Routine 07/14/2022 6:07 AM APPRENTICE ELECTRICIAN HEMOGLOBIN A1C Routine 07/13/2022 6:18 AM APPRENTICE ELECTRICIAN COLONOSCOPY Routine 05/25/2022 3:44 PM APPRENTICE ELECTRICIAN from Last 3 Months or Most Recently Relevant to Health Maintenance Results * Screening Mammogram (05/28/2024 8:53 AM APPRENTICE ELECTRICIAN) Anatomical Region Laterality Modality Breast N/A Mammography us Historical Provider MD [facility] MAMMO PROCEDURES Shelbie l Result * (ABNORMAL) Renal function panel (01/22/2024 2:15 PM CDT) Glucose 217(H) 65 - 99 mg/dL [employer]Josie Montes Comment: ? Fasting reference interval For someone without known diabetes, a glucose value >125 mg/dL indicates that they may have diabetes and this should be confirmed with a follow-up test. BUN 21 7 - 25 mg/dL Gabriel EpoxyViolet Montes Creatinine 1.21(H) 0.60 - 1.00 mg/dL Gabriel 3NodViolet Montes eGFR 48(L) > OR = 60 mL/min/1.7 3m2 Gabriel TrujilloViolet Montes BUN/creat ratio 17 6 - 22 (calc) Rust [employer] candelario Montes Sodium 137 135 - 146 mmol/L [facility] [employer] candelario Montes Potassium, pl 3.8 3.5 - 5.3 mmol/L [employer] candelario Montes Chloride 101 98 - 110 mmol/L Rust 3Nod candelario Montes CO2 27 20 - 32 mmol/L [facility] [employer] candelario Montes Calcium 9.4 8.6 - 10.4 mg/dL [employer] candelario Montes Phosphorus, sr 2.9 2.1 - 4.3 mg/dL [facility] [employer] candelario Montes Albumin 3.9 3.6 - 5.1 g/dL [facility] candelario Montes Blood 01/22/2024 2:15 PM CDT 01/22/2024 2:15 PM CDT Narrative [facility] - 01/23/2024 9:54 AM CDT PATIENT UNABLE TO VOID; ADVISED TO RETURN FOR COLLECTION. Mandi Smith MD LAB BLOOD ORDERABLES Final Result Performing Organization Address City/State/[facility] Co de Phone Number [facility] [address] [place] [address] * (ABNORMAL) Lipid panel (09/07/2022 2:11 PM CDT) [facility] Cholesterol 98 30 - 199 mg/dL [facility] Comment: Interpretive Data Ages < or [...] revised on 2018. Triglycerides 318(H) <=149 mg/dL [facility] Comment: Interpretive Data Ages < [...] revised on 2018. HDL 16(L) >=40 mg/dL [facility] Comment: Interpretive Data Ages < [...] on 2018. LDL, calculated 18 <=129 mg/dL [facility] Comment: Interpretive Data Ages < [...] revised on 2018. Non-HDL Cholesterol 82 mg/dL [facility] Comment: Interpretive Data Ages < [...] last revised on 2018. Chol/HDL ratio 6 [facility] Blood 09/07/2022 2:11 PM CDT 09/07/2022 2:24 PM CDT us Laura Verduzco MD LAB BLOOD ORDERABLES Fi nal Result [facility] [address] [facility] Department [place] [address] * (ABNORMAL) Albumin Creatinine Ratio, Urine (07/14/2022 6:07 AM APPRENTICE ELECTRICIAN) Albumin Ur 96.9 mg/L [facility] Comment: Interpretive Data No reference range established. Current interpretive data was last revised 2018. Testing performed by: [address] [address] Creatinine Ur 84.0 mg/dL [facility] Comment: Interpretive Data No reference range established. Current interpretive data was last revised 2018. Testing performed by: [address] [address] Albumin Creatinine Ratio, Ur 115(H) 1 - 29 mg/g [facility] Comment:Testing performed by : [address] [address] Urine 07/14/2022 6:07 AM APPRENTICE ELECTRICIAN 07/14/2022 6:10 AM APPRENTICE ELECTRICIAN Bret Woodruff MD LAB URINE ORDERABLES Final Result Performing Organization Address City/State/[facility] Co de Phone Number [facility] [address] [facility] Department [place] [address] * (ABNORMAL) Hemoglobin A1c (07/13/2022 6:18 AM APPRENTICE ELECTRICIAN) Pathologist [facility] Hgb A1C 9.2(H) 4.0 - 5.6 % [facility] Comment:Testing performed by : [address] [address] Estimated Average Glucose 217 mg/dL [facility] Comment: The ADA recommends reporting an estimated Average Glucose (eAG) with all Hemoglobin A1c results using the equation derived from a study of 507 normal and diabetic adults. ??Minority populations were underrepresented and children were not included. ?? (Diabetes Care 31:8440-2499, 2008). ??The eAG is not equivalent to a fasting glucose. Testing performed by: [address] [address] Blood 07/13/2022 6:18 AM APPRENTICE ELECTRICIAN 07/13/2022 6:44 AM APPRENTICE ELECTRICIAN us Bret Woodruff MD LAB BLOOD ORDERABLES Final Result [facility] [address] [facility] Department [place] [address] * Colonoscopy (05/25/2022 3:44 PM APPRENTICE ELECTRICIAN) Anatomical Region Laterality Modality Other us Historical Provider ENDOSCOPY PROCEDURES Shelbie l Result from Last 3 Months or Most Recently Relevant to Health Maintenance Additional Health Concerns Infection Onset Date Last Indicated MDR gram neg/ESBL 04/07/2022 07/12/2022 Insurance AETNA MEDICARE AETNA MEDICARE [facility] MEDICARE [facility] Address: [facility] [id number] [place] [id number] [facility] MEDICARE Advance Directives For more information, please contact: [phone] * LIMITED - No CPR (Latest Code [...] 6:50 AM 02/24/2022 8:58 PM Care Teams Yard Caller Relationship Specialty Start Date End Date Akhil JayDO PCP - General Family Medicine 10/16/18 Sada Woodard DO Internal Medicine 10/07/18 Redd Leary MD [address] [place] [address] [address] [place], [place] [id number] Surgeon General Surgery 04/27/21 Donna Mayberry NP [address] [place] [address] [address] [facility] [place], [place] [id number] Nurse Practitioner Medical Oncology 01/03/23 Irina Hazel MD [address] [place] [address] [address] [facility] [place], [place] [address] Consulting Physician Pain Management 10/02/23 Josefa Alvarado MD [address] [place] [address] [address] [place], [place] [address] Radiation Oncologist Radiation Oncology 01/03/24
[2024-07-05 11:52] LABS: Alveolar/Arterial O2 Gradient 536.2 mmHg; Base Excess ABG -3.5 mEq/l (+/-2.0); Fractional Inspired Oxygen 100 %; HCO3 ABG 20.7 mEq/l (22.0-26.0); Oxygen Content ABG 18.2 %vol (16.0-22.0); Oxygen Saturation ABG 98.8 % (95.0-100.0); PCO2 ABG 34.5 mmHg (35.0-45.0); PO2 ABG 142.3 mmHg (80.0-100.0); PO2 FiO2 Ratio Arterial Blood 1.42 %; pH ABG 7.395 (7.350-7.450)
[2024-07-05 11:53] LABS: Device VENTILATOR; Site Drawn RIGHT BRACHIAL
[2024-07-05 11:54] LABS: Arterial Blood Gas PEEP 5 cmH2O; Arterial Blood Gas Tidal Volume 420 ml; Arterial Blood Gas Vent Mode CMV; Arterial Blood Gas Ventilator rate 18 /MIN
[2024-07-05] MEDS: SODIUM CHLORIDE 0.9% IV 1,000 ML 999 ML IV CONT (11:57)
[2024-07-05] MEDS: HYDROmorphone HCL INJ (*CRX) 1 MG/ML SYR IV PUSH (11:59)
[2024-07-05] MEDS: LORazepam INJ (*CRX) 2 MG/ML VIAL IV PUSH (12:00)
[2024-07-05 12:21] LABS: Basophils Percent Auto 0.4 % (0.2-1.2); Eosinophils Absolute Auto 0.1 K/mm3 (0-0.3); Eosinophils Percent Auto 1.1 % (0-4.4); Hematocrit 39.4 % (37.0-47.0); Hemoglobin 12.2 g/dL (12.0-15.0); Immature Granulocyte Absolute 0.02 K/mm3 (0.00-0.031); Immature Granulocyte Percent A 0.4 % (0-0.5); Lymphocytes Absolute Auto 0.29 K/mm3 (0.9-3.2); Lymphocytes Percent Auto 5.1 % (18.3-44.2); Mean Corpuscular Hemoglobin 28.4 pg (26-34); Mean Corpuscular Volume 91.6 fl (80-100); Mean Platelet Volume 10.8 fl (7.4-10.4); Monocytes Absolute Auto 0.1 K/mm3 (0.1-0.6); Monocytes Percent Auto 1.6 % (2.6-8.5); Neutrophils Absolute Auto 5.2 K/mm3 (1.3-6.7); Neutrophils Percent Auto 91.4 % (45.5-73.1); Platelet Count Result 194 k/mm3 (150-375); Red Cell Distribution Width 15.9 % (11.5-14.5); White Blood Count 5.7 K/mm3 (4.5-10.0)
[2024-07-05 12:22] LABS: Glucose Point of Care 178 mg/dl (65-105)
[2024-07-05 12:37] LABS: Add Urine Microscopic? YES; Appearance Urine Cloudy (Clear); Bacteria Urine 4+ /hpf; Bilirubin Urine Negative (Negative); Blood Urine Negative (Negative); Color Urine Yellow (Yellow); Glucose Urine UA Trace mg/dL (Negative); Ketones Urine Negative (Negative); Leukocyte Esterase Ur 1+ LEU/UL (Negative); Nitrate Urine Negative (Negative); Non Pathogenic Casts 0-2; Protein Urine 1+ mg/dL (Negative); RBC Urine 0-2 /hpf (0-2); Specific Grav Ur 1.016 (1.001-1.035); Squamous Epithelial Cell Urine None Seen /hpf (Few); WBC Urine 21-50 /hpf (0-3); pH Urine 6.5 (5.0-9.0)
[2024-07-05 12:39] LABS: INR 1.2; Prothrombin Time 15.5 Seconds (11.1-14.7)
[2024-07-05 12:40] LABS: Alanine Aminotransferase 35 U/L (6-35); Albumin Level 3.4 g/dL (3.5-5.1); Alkaline Phosphatase 162 U/L (38-126); Anion Gap 20 mmol/L (4-12); Aspartate Amino Transferase 125 U/L (14-36); Bilirubin,Total 1.1 mg/dL (0.2-1.3); Blood Urea Nitrogen 22 mg/dL (7-17); Calcium 8.1 mg/dL (8.4-10.2); Carbon Dioxide 22 mmol/L (22-30); Chloride 107 mmol/L (98-107); Estimated Glomerular Filt Rate > 60; Glucose 165 mg/dL (65-110); Lipase 76 U/L (23-300); Magnesium 1.5 mg/dL (1.6-2.3); Phosphorus 1.7 mg/dL (2.5-4.5); Potassium 2.9 mmol/L (3.4-5.0); Sodium 149 mmol/L (137-145)
[2024-07-05 12:41] LABS: Lactic Acid Reflex 3.5 mmol/L (0.7-2.0)
[2024-07-05] MEDS: SODIUM CHLORIDE 0.9% IV 2,000 ML 999 ML IV CONT (12:56)
[2024-07-05 12:59] LABS: NT Pro B Type Natriuretic Pept 254 pg/mL (19.9-100); Troponin I 0.747 ng/mL (0.000-0.034)
[2024-07-05] MEDS: CEFEPIME 2 GM/NS 50 ML 2 GM/50 ML BAG IVPB (13:12)
[2024-07-05] MEDS: [UNRECOGNIZED DRUG - REMARK] 1 EACH XX (13:16)
[2024-07-05] MEDS: metroNIDAZOLE 500 MG/ISO 100ML 500 MG/100 ML BAG 100 MG IVPB ×2 (13:23→21:56)
[2024-07-05 13:33] LABS: Influenza A QL RT-PCR Negative (Negative); Influenza B QL RT-PCR Negative (Negative); RSV RNA, RT-PCR Negative (Negative); SARS-CoV-2 RNA PCR Negative (Negative)
[2024-07-05] MEDS: FENTANYL 2,500MCG/NS250ML(*CRX 2,500 MCG/250 ML BAG 10 MCG IV CONT (13:40)
[2024-07-05] MEDS: MIDAZOLAM 100MG/NS 100ML(*CRX) 100 MG/100 ML BAG IV CONT (13:50)
[2024-07-05 13:57] LABS: Estimated CRCL calculation 38 ml/min; Estimated Glomerular Filt Rate 55
--- NOTE | 2024-07-05 13:59 | ED_ITS ---
HPI - General Adult General Chief complaint: Fever Stated complaint: resp distress Time Seen by Provider: 07/05/24 11:14 History of Present Illness HPI narrative: This is 73-year-old female presenting respiratory distress. Patient has 1 word dyspnea and decreased mental status. She cannot provide any meaningful history. History from the arrived in our after initial presentation 7 she had developed fevers and vomiting earlier today. She vomited while laying on her back. After that she becomes severely short of breath. Related Data Home Medications ?Medication ?Instructions ?Recorded ?Confirmed ?Last Taken ?Type amlodipine 10 mg tablet 10 mg PO DAILY 02/05/21 05/28/24 05/24/22 History fenofibrate 160 mg tablet 160 mg PO DAILY 02/05/21 05/28/24 05/24/22 History rosuvastatin 40 mg tablet 40 mg PO DAILY 02/05/21 05/28/24 05/24/22 History erythromycin 2 % topical solution 1 ml topical TID Itching 05/01/22 05/28/24 05/24/22 History ondansetron HCl 4 mg tablet 4 mg PO Q4H PRN Nausea 05/01/22 05/28/24 05/24/22 History pregabalin 150 mg capsule (Lyrica) 300 mg PO Q12H 05/01/22 05/28/24 05/24/22 History levothyroxine 100 mcg tablet 100 mcg PO DAILY 05/17/22 05/28/24 05/24/22 History oxycodone-acetaminophen 5 mg-325 1 tablet PO Q6H PRN Pain, Moderate 05/17/22 05/28/24 05/24/22 History mg tablet memantine 5 mg tablet 5 mg PO BID 09/06/23 05/28/24 Unknown History naproxen 375 mg tablet 375 mg PO Q72H PRN Pain, Mild 09/06/23 05/28/24 Unknown History triamcinolone acetonide 0.1 % 1 applic topical BID PRN if open 09/06/23 05/28/24 Unknown History topical ointment areas diphenhydramine HCl 25 mg capsule 25 mg PO Q6H PRN Itching 04/02/24 05/28/24 Unknown History (Allergy (diphenhydramine)) docusate sodium 100 mg capsule 100 mg PO BID 04/02/24 05/28/24 Unknown History (Colace) ergocalciferol (vitamin D2) 50,000 50,000 unit PO WEEKLY 04/02/24 05/28/24 Unknown History unit tablet glipizide 10 mg tablet, extended 10 mg PO DAILY 04/02/24 05/28/24 Unknown History release 24 hr hydrocortisone 2.5 % topical cream 1 applic topical BID 04/02/24 05/28/24 Unknown History multivitamin 1 tablet PO DAILY 04/02/24 05/28/24 Unknown History polyvinyl alcohol-povidone 1.4 1 drp ophthalmic (eye) QID PRN Dry 04/02/24 05/28/24 Unknown History %-0.6 % eye drops Eyes silver sulfadiazine 1 % topical 1 applic topical BID PRN blisters 04/02/24 05/28/24 Unknown History cream Allergies Allergy/AdvReac Type Severity Reaction Status Date / Time gemfibrozil Allergy Intermediate Rash Verified 06/24/24 07:10 hydrochlorothiazide Allergy Intermediate Rash Verified 06/24/24 07:10 irbesartan Allergy Intermediate Hives Verified 06/24/24 07:10 niacinamide Allergy Intermediate Rash Verified 06/24/24 07:10 amoxicillin (From Augmentin) AdvReac Intermediate Diarrhea Verified 06/24/24 07:10 clavulanic acid (From AdvReac Intermediate Diarrhea Verified 06/24/24 07:10 Augmentin) hydrocodone AdvReac Intermediate Dizziness Verified 06/24/24 07:10 lisinopril AdvReac Intermediate Dizziness Verified 06/24/24 07:10 PMFSH Past Medical History Medical History Hyperlipidemia Atrial fibrillation Iron deficiency anemia Hypothyroidism Breast cancer Small bowel obstruction Multiple small-bowel obstructions over the course of 20+ years. Essential hypertension Hypothyroidism Diabetes mellitus Shingles MGUS (monoclonal gammopathy of unknown significance) Bullous pemphigoid Surgical History Surgical History History of tubal ligation History of appendectomy Hx of cholecystectomy History of lumpectomy of right breast History of exploratory laparotomy (~2009) Due to small-bowel obstruction Family History Family History Mother , in her 90s Dementia Father , at age 72 Coronary artery disease Hx of CABG Social History Social History Social History: She lives in [place] with her of 44 years. They have 2 children. She is a former smoker but ?did not smoke that much?. She she does not drink alcohol. 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 Healthcare power of civil litigation attorney: Years smoked: 47 Smoking status: Former smoker Second hand tobacco smoke exposure: Yes Alcohol intake: never Alcohol use details: occasional glass of wine Substance use: current Substance use type: marijuana Last use: t-2 Do You Feel Safe in your Home?: Yes Lack of Transportation: No Lack of Food: Never True Current Housing: I Have Housing Concerned About Future Housing: No Difficulty Paying Gas/Electric Bills: No Difficulty Paying for Meds: No Currently Unemployed: No Education: High School Diploma/GED Difficulty w/ Childcare or Family Care: No Living arrangements: with family Gender identity (if verbalized by the patient): Female Spiritual care concerns: No Exam 2 Narrative: APPEARANCE: Response to voice, one-word dyspnea Head: atraumatic. EYES: EOMI, NOSE: Atraumatic NECK: Trachea midline RESPIRATORY: Tachypneic, hypoxic on 15 L non-rebreather, bibasilar rhonchi CARDIOVASCULAR: RRR, tachycardic ABDOMINAL: Non-distended, soft non-tender MUSCULOSKELETAl: No obvious deformities NEURO: Moving for 4 extremities, responds voiced SKIN:: Warm to touch PSYCHIATRIC: Lethargic Course Vital Signs Vital signs: Vital Signs Temperature 102.4 F H 07/05/24 11:10 Pulse Rate 122 H 07/05/24 11:10 Respiratory Rate 18 07/05/24 11:10 Blood Pressure 131/60 07/05/24 11:10 Pulse Oximetry 94 07/05/24 11:10 Oxygen Delivery Mechanical Ventilation 07/05/24 11:10 Temperature 102.4 F H 07/05/24 11:10 Pulse Rate 117 H 07/05/24 13:54 Respiratory Rate 18 07/05/24 13:51 Blood Pressure 131/60 07/05/24 11:10 Pulse Oximetry 94 07/05/24 12:55 Oxygen Delivery Mechanical Ventilation 07/05/24 12:55 Fraction of Inspired Oxygen 50 01/25/25 12:55 Procedures Intubation Intubation #1: Intubation Date: 07/05/24 sedative: Etomidate Mg Given: 20 paralytic: Rocuronium Mg Given: 100 Laryngoscope: fiber optic video scope (3) Assist Device Used: fiber optic device Tube Size (cm): 7.5 Method of Intubation: orotracheal Number of Attempts: 2 Tube Secured Depth (cm): 21 Tube Secured Location: teeth Tube Placement Confirmation: visualized tube passing through cords, equal breath sounds bilaterally, no breath sounds over epigastrium and confirmation by capnometry Medical Decision Making MDM Narrative Medical decision making narrative: -Course: 73-year-old female presenting in respiratory extremis. Patient was saturating in the low 90s on 15 L non-rebreather with a respiratory rate of 40. Mental status is not appropriate for noninvasive ventilation. Patient was intubated for hypoxic respiratory failure. Patient started on broad-spectrum antibiotics to cover suspected pneumonia/aspiration pneumonia while her workup was being completed. Patient given rectal Tylenol and 30 cc/kilogram bolus. CT showed bibasilar pneumonia. Initial lactic 3.5 will continue to trend after fluids.. Potassium 2.9, mag 1.5 and phos 1.7. these are being repleted. Initial troponin elevated without EKG changes. Suspect demand ischemia but will continue to trend. Urine with 21-50 white blood cells and +1 leuk esterase. Viral swabs negative -DDX includes but is not limited to: Aspiration pneumonia, pneumonia, sepsis, UTI, dehydration -Co-morbidities complicating care: Hypertension, hypothyroid, diabetes -Discussion of Management/Consultants:Edvin, -Shared decision making / Disposition:Admitted Vital Signs Vital Signs: Vital Signs Temperature 102.4 F H 07/05/24 11:10 Pulse Rate 122 H 07/05/24 11:10 Respiratory Rate 18 07/05/24 11:10 Blood Pressure 131/60 07/05/24 11:10 Pulse Oximetry 94 07/05/24 11:10 Oxygen Delivery Mechanical Ventilation 07/05/24 11:10 Temperature 102.4 F H 07/05/24 11:10 Pulse Rate 117 H 07/05/24 13:54 Respiratory Rate 18 07/05/24 13:51 Blood Pressure 131/60 07/05/24 11:10 Pulse Oximetry 94 07/05/24 12:55 Oxygen Delivery Mechanical Ventilation 07/05/24 12:55 Fraction of Inspired Oxygen 50 07/05/24 12:55 Lab Data 07/05/24 12:10 07/05/24 12:36 Labs: Lab Results 07/05/24 07/05/24 07/05/24 Range/Units 11:50 12:08 12:10 WBC 5.7 (4.5-10.0) K/mm3 RBC 4.30 (4.2-5.4) M/mm3 Hgb 12.2 (12.0-15.0) g/dL Hct 39.4 (37.0-47.0) % MCV 91.6 (80-100) fl MCH 28.4 (26-34) pg MCHC 31.0 L (32-36) g/dl RDW 15.9 H (11.5-14.5) % Plt Count 194 (150-375) k/mm3 MPV 10.8 H (7.4-10.4) fl Immature Gran % (Auto) 0.4 (0-0.5) % Neut % (Auto) 91.4 H (45.5-73.1) % Lymph % (Auto) 5.1 L (18.3-44.2) % Br[place]ley % (Auto) 1.6 L (2.6-8.5) % Eos % (Auto) 1.1 (0-4.4) % Baso % (Auto) 0.4 (0.2-1.2) % Lymph # (Auto) 0.29 L (0.9-3.2) K/mm3 Br[place]ley # (Auto) 0.1 (0.1-0.6) K/mm3 Eos # (Auto) 0.1 (0-0.3) K/mm3 Baso # (Auto) 0.0 (0.0-0.1) K/mm3 Abs Immat Gran (auto) 0.02 (0.00-0.031) K/mm3 Absolute Neuts (auto) 5.2 (1.3-6.7) K/mm3 Absolute Nucleated RBC 0.000 (0.0-0.012) K/mm3 Nucleated RBC % 0.0 (0.0-0.2) % PT 15.5 H (11.1-14.7) Seconds INR 1.2 APTT 26.0 (22.3-36.8) Seconds Minute Volume Not Reportable Vent Mode Cmv Tidal Volume 420 ml PEEP 5 cmH2O Peak Inspir Pressure Not Reportable Pressure Support Not Reportable Sodium 149 H (137-145) mmol/L Potassium 2.9 L (3.4-5.0) mmol/L Chloride 107 (98-107) mmol/L Carbon Dioxide 22 (22-30) mmol/L Anion Gap 20 H (4-12) mmol/L BUN 22 H (7-17) mg/dL Creatinine 0.87 (0.7-1.0) mg/dL Estim Creat Clear Calc Estimated GFR (59 - ) Glucose (65-110) mg/dL POC Capillary Glucose 178 H (65-105) mg/dl Lactic Acid (0.7-2.0) mmol/L Calcium (8.4-10.2) mg/dL Phosphorus (2.5-4.5) mg/dL Magnesium (1.6-2.3) mg/dL Total Bilirubin (0.2-1.3) mg/dL AST (14-36) U/L ALT (6-35) U/L Alkaline Phosphatase (38-126) U/L Troponin I (0.000-0.034) ng/mL NT-Pro-B Natriuret Pep (19.9-100) pg/mL Total Protein (6.3-8.2) g/dL Albumin (3.5-5.1) g/dL Lipase (23-300) U/L TSH (Reflex) (0.465-4.68) uIU/mL Urine Color (Yellow) Urine Appearance (Clear) Urine pH (5.0-9.0) Ur Specific [place] (1.001-1.035) Urine Protein (Negative) mg/dL Urine Glucose (UA) (Negative) mg/dL Urine Ketones (Negative) mg/dL Ur Blood (Man) (Negative) Urine Nitrate (Negative) Urine Bilirubin (Negative) Urine Urobilinogen (<2.0) mg/dL Leukocyte Esterase Rfl (Negative) FREDY/UL Urine RBC (0-2) /hpf Urine WBC (0-3) /hpf Ur Squamous Epith Cells (Few) /hpf Urine Bacteria /hpf Urine Casts Influenza A (RT-PCR) (Negative) Influenza B (RT-PCR) (Negative) RSV (RT-PCR) (Negative) SARS-CoV-2 RNA (RT-PCR) (Negative) 07/05/24 07/05/24 07/05/24 Range/Units 12:10 12:10 12:10 WBC (4.5-10.0) K/mm3 RBC (4.2-5.4) M/mm3 Hgb (12.0-15.0) g/dL Hct (37.0-47.0) % MCV (80-100) fl MCH (26-34) pg MCHC (32-36) g/dl RDW (11.5-14.5) % Plt Count (150-375) k/mm3 MPV (7.4-10.4) fl Immature Gran % (Auto) (0-0.5) % Neut % (Auto) (45.5-73.1) % Lymph % (Auto) (18.3-44.2) % Brantley % (Auto) (2.6-8.5) % Eos % (Auto) (0-4.4) % Baso % (Auto) (0.2-1.2) % Lymph # (Auto) (0.9-3.2) K/mm3 Br[place]ley # (Auto) (0.1-0.6) K/mm3 Eos # (Auto) (0-0.3) K/mm3 Baso # (Auto) (0.0-0.1) K/mm3 Abs Immat Gran (auto) (0.00-0.031) K/mm3 Absolute Neuts (auto) (1.3-6.7) K/mm3 Absolute Nucleated RBC (0.0-0.012) K/mm3 Nucleated RBC % (0.0-0.2) % PT (11.1-14.7) Seconds INR APTT (22.3-36.8) Seconds Minute Volume Vent Mode Tidal Volume ml PEEP cmH2O Peak Inspir Pressure Pressure Support Sodium (137-145) mmol/L Potassium (3.4-5.0) mmol/L Chloride (98-107) mmol/L Carbon Dioxide (22-30) mmol/L Anion Gap (4-12) mmol/L BUN (7-17) mg/dL Creatinine Cancelled (0.7-1.0) mg/dL Estim Creat Clear Calc Not Reportable Cancelled Estimated GFR > 60 Cancelled (59 - ) Glucose 165 H (65-110) mg/dL POC Capillary Glucose (65-105) mg/dl Lactic Acid 3.5 H (0.7-2.0) mmol/L Calcium 8.1 L (8.4-10.2) mg/dL Phosphorus 1.7 L (2.5-4.5) mg/dL Magnesium 1.5 L (1.6-2.3) mg/dL Total Bilirubin 1.1 (0.2-1.3) mg/dL AST 125 H (14-36) U/L ALT 35 (6-35) U/L Alkaline Phosphatase 162 H (38-126) U/L Troponin I 0.747 H* (0.000-0.034) ng/mL NT-Pro-B Natriuret Pep 254 H (19.9-100) pg/mL Total Protein 6.0 L (6.3-8.2) g/dL Albumin 3.4 L (3.5-5.1) g/dL Lipase 76 (23-300) U/L TSH (Reflex) 1.130 (0.465-4.68) uIU/mL Urine Color (Yellow) Urine Appearance (Clear) Urine pH (5.0-9.0) Ur Specific [place] (1.001-1.035) Urine Protein (Negative) mg/dL Urine Glucose (UA) (Negative) mg/dL Urine Ketones (Negative) mg/dL Ur Blood (Man) (Negative) Urine Nitrate (Negative) Urine Bilirubin (Negative) Urine Urobilinogen (<2.0) mg/dL Leukocyte Esterase Rfl (Negative) FREDY/UL Urine RBC (0-2) /hpf Urine WBC (0-3) /hpf Ur Squamous Epith Cells (Few) /hpf Urine Bacteria /hpf Urine Casts Influenza A (RT-PCR) (Negative) Influenza B (RT-PCR) (Negative) RSV (RT-PCR) (Negative) SARS-CoV-2 RNA (RT-PCR) (Negative) 07/05/24 07/05/24 07/05/24 Range/Units 12:22 12:36 12:54 WBC (4.5-10.0) K/mm3 RBC (4.2-5.4) M/mm3 Hgb (12.0-15.0) g/dL Hct (37.0-47.0) % MCV (80-100) fl MCH (26-34) pg MCHC (32-36) g/dl RDW (11.5-14.5) % Plt Count (150-375) k/mm3 MPV (7.4-10.4) fl Immature Gran % (Auto) (0-0.5) % Neut % (Auto) (45.5-73.1) % Lymph % (Auto) (18.3-44.2) % Brantley % (Auto) (2.6-8.5) % Eos % (Auto) (0-4.4) % Baso % (Auto) (0.2-1.2) % Lymph # (Auto) (0.9-3.2) K/mm3 [place] # (Auto) (0.1-0.6) K/mm3 Eos # (Auto) (0-0.3) K/mm3 Baso # (Auto) (0.0-0.1) K/mm3 Abs Immat Gran (auto) (0.00-0.031) K/mm3 Absolute Neuts (auto) (1.3-6.7) K/mm3 Absolute Nucleated RBC (0.0-0.012) K/mm3 Nucleated RBC % (0.0-0.2) % PT (11.1-14.7) Seconds INR APTT (22.3-36.8) Seconds Minute Volume Vent Mode Tidal Volume ml PEEP cmH2O Peak Inspir Pressure Pressure Support Sodium (137-145) mmol/L Potassium (3.4-5.0) mmol/L Chloride (98-107) mmol/L Carbon Dioxide (22-30) mmol/L Anion Gap (4-12) mmol/L BUN (7-17) mg/dL Creatinine 1.00 (0.7-1.0) mg/dL Estim Creat Clear Calc 38 Estimated GFR 55 L (59 - ) Glucose (65-110) mg/dL POC Capillary Glucose (65-105) mg/dl Lactic Acid (0.7-2.0) mmol/L Calcium (8.4-10.2) mg/dL Phosphorus (2.5-4.5) mg/dL Magnesium (1.6-2.3) mg/dL Total Bilirubin (0.2-1.3) mg/dL AST (14-36) U/L ALT (6-35) U/L Alkaline Phosphatase (38-126) U/L Troponin I (0.000-0.034) ng/mL NT-Pro-B Natriuret Pep (19.9-100) pg/mL Total Protein (6.3-8.2) g/dL Albumin (3.5-5.1) g/dL Lipase (23-300) U/L TSH (Reflex) (0.465-4.68) uIU/mL Urine Color Yellow (Yellow) Urine Appearance Cloudy H (Clear) Urine pH 6.5 (5.0-9.0) Ur Specific [place] 1.016 (1.001-1.035) Urine Protein 1+ H (Negative) mg/dL Urine Glucose (UA) Trace H (Negative) mg/dL Urine Ketones Negative (Negative) mg/dL Ur Blood (Man) Negative (Negative) Urine Nitrate Negative (Negative) Urine Bilirubin Negative (Negative) Urine Urobilinogen 1.0 (<2.0) mg/dL Leukocyte Esterase Rfl 1+ H (Negative) FREDY/UL Urine RBC 0-2 (0-2) /hpf Urine WBC 21-50 H (0-3) /hpf Ur Squamous Epith Cells None seen (Few) /hpf Urine Bacteria 4+ /hpf Urine Casts 0-2 Influenza A (RT-PCR) Negative (Negative) Influenza B (RT-PCR) Negative (Negative) RSV (RT-PCR) Negative (Negative) SARS-CoV-2 RNA (RT-PCR) Negative (Negative) ABG Data ABG results: 07/05/24 11:50 Puncture Site Right brachial ABG pH 7.395 ABG pCO2 34.5 L ABG pO2 142.3 H ABG PO2/FiO2 Ratio 1.42 ABG HCO3 20.7 L ABG O2 Saturation 98.8 ABG O2 Content 18.2 ABG Base Excess -3.5 A-a Gradient 536.2 Oxyhemoglobin 98.0 Total Hemoglobin 13.0 O2 Delivery Device Ventilator O2 Liters/Min Not Reportable Vent Rate 18 FiO2 100 Critical Care Time Critical Care Time Critical Care Time: Yes Total Critical Care Time: 35 Discharge Plan Discharge Clinical Impression: Pneumonia, Hypomagnesemia, Acute hypokalemia, Hypoxic respiratory failure, Hypophosphatemia Patient Disposition: Still a Patient Condition: Critical Patient Language: Swazi Prescriptions: No Action erythromycin 2 % solution 1 ml topical TID Rx Instructions: To left eye ondansetron HCl 4 mg tablet 4 mg PO Q4H PRN (Reason: Nausea) pregabalin [Lyrica] 150 mg capsule 300 mg PO Q12H levothyroxine 100 mcg Tablet 100 mcg PO DAILY oxycodone-acetaminophen 5-325 mg Tablet 1 tablet PO Q6H PRN (Reason: Pain, Moderate) naproxen 375 mg tablet 375 mg PO Q72H PRN (Reason: Pain, Mild) Rx Instructions: med on hold triamcinolone acetonide 0.1 % ointment 1 applic TOPICAL BID PRN (Reason: if open areas) Rx Instructions: to open areas memantine 5 mg tablet 5 mg PO BID ciprofloxacin HCl [Cipro] 500 mg tablet 500 mg PO Q12H Qty: 14 0RF potassium chloride 20 mEq tablet extended release 20 meq PO BID Qty: 10 0RF amlodipine 10 mg tablet 10 mg PO DAILY rosuvastatin 40 mg tablet 40 mg PO DAILY fenofibrate 160 mg tablet 160 mg PO DAILY multivitamin Tablet 1 tablet PO DAILY silver sulfadiazine 1 % Cream 1 applic TOPICAL BID PRN (Reason: blisters) Rx Instructions: apply a 1.5 mm thickness to blisters glipizide 10 mg tablet extended release 24hr 10 mg PO DAILY polyvinyl alcohol-povidone 1.4-0.6 % Drops 1 drp OPHTHALMIC (EYE) QID PRN (Reason: Dry Eyes) ergocalciferol (vitamin D2) 50,000 unit Tablet 50,000 unit PO WEEKLY Rx Instructions: takes on Fridays diphenhydramine HCl [Allergy (diphenhydramine)] 25 mg Capsule 25 mg PO Q6H PRN (Reason: Itching) docusate sodium [Colace] 100 mg Capsule 100 mg PO BID Rx Instructions: med on hold hydrocortisone 2.5 % Cream 1 applic TOPICAL BID Rx Instructions: left ear pantoprazole 40 mg Tablet,Delayed Release (Dr/Ec) 40 mg PO Q12HR Qty: 30 0RF promethazine 25 mg Tablet 25 mg PO Q4H PRN (Reason: Nausea And Vomiting) Qty: 10 0RF Follow-up/Referrals: Pierre,DO Akhil [Primary Care Provider] -
[2024-07-05] MEDS: VANCOMYCIN 1,500 MG/NS 500 ML BAG 250 MG IVPB (14:27)
--- NOTE | 2024-07-05 14:49 | P.HP_ITS ---
H&P: HPI History of Present Illness Date/Time: 07/05/24 14:49 Chief Complaint: Fever and shortness breath Narrative: 73-year-old female with history of shingles face, diabetes, hypothyroidism, hypertension, breast cancer, and MGUS presents to the hospital with fever 102.4 and shortness of breath. HPI is limited due to patient being intubated emergently in the ED for respiratory failure. Per the the patient was complaining of severe back pain yesterday but no respiratory symptoms. He states that she was able to do laundry and chores. This morning around 8:00 a.m. she woke up and went to bathroom and when she came back from the bathroom she had vomited into the trash can then laid back in bed. He states about an hour later she was lying in bed vomiting while lying on her back he tried roll h er to her side. And then call 911 due to her having trouble breathing. Per EMS patient's SpO2 was 70% she is placed on non-rebreather for transportation. Upon arrival patient was on 15 L non-rebreather with SpO2 in the low 90s and respiratory rate of 40 so she was emergently intubated. ABG after intubation is adequate, sodium is 149, potassium 2.9, lactic acid of 3.5, calcium of 8.1, phosphorus at 1.7, magnesium 1.5, baseline troponin 0.747 with EKG showing sinus tachycardia with occasional PVCs, T-wave abnormality rate 117 QTC 611 and 2 hour troponin 2.270 with EKG pending. UA shows negative for nitrates, 1+ leukocyte esterase, influenza a B, COVID and RSV negative. In the ED the patient was given IV Flagyl, vancomycin, 2 g magnesium, 20 millimoles of potassium phosphate. Blood cultures pending. She will be admitted to the ICU. Patient was still hypotensive after sepsis bolus a central line was placed and patient was started on levo. Cardiology consulted. Review of Systems Review of Systems: ROS unobtainable: Yes unobtainable due to endotracheal tube PMFSH Past Medical History Medical History Hyperlipidemia Atrial fibrillation Iron deficiency anemia Hypothyroidism Breast cancer Small bowel obstruction Multiple small-bowel obstructions over the course of 20+ years. Essential hypertension Hypothyroidism Diabetes mellitus Shingles MGUS (monoclonal gammopathy of unknown significance) Bullous pemphigoid Surgical History Surgical History History of tubal ligation History of appendectomy Hx of cholecystectomy History of lumpectomy of right breast History of exploratory laparotomy (~2009) Due to small-bowel obstruction Family History Family History Mother , in her 90s Dementia Father , at age 72 Coronary artery disease Hx of CABG Social History Social History Social History: She lives in [place] with her of 44 years. They have 2 children. She is a former smoker but ?did not smoke that much?. She she does not drink alcohol. 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 Healthcare power of assistant county attorney: Years smoked: 47 Smoking status: Former smoker Second hand tobacco smoke exposure: Yes Alcohol intake: never Alcohol use details: occasional glass of wine Substance use: never Substance use type: does not use Last use: t-2 Do You Feel Safe in your Home?: Yes Lack of Transportation: No Lack of Food: Never True Current Housing: I Have Housing Concerned About Future Housing: No Difficulty Paying Gas/Electric Bills: No Difficulty Paying for Meds: No Currently Unemployed: No Education: High School Diploma/GED Difficulty w/ Childcare or Family Care: No Living arrangements: with family Gender identity (if verbalized by the patient): Female Spiritual care concerns: No Meds Home Medications and Allergies Home Medications ?Medication ?Instructions ?Recorded ?Confirmed ?Type amlodipine 10 mg tablet 10 mg PO DAILY 02/05/21 07/05/24 History fenofibrate 160 mg tablet 160 mg PO DAILY 02/05/21 07/05/24 History rosuvastatin 40 mg tablet 40 mg PO DAILY 02/05/21 07/05/24 History erythromycin 2 % topical solution 1 ml topical TID Itching 05/01/22 07/05/24 History ondansetron HCl 4 mg tablet 4 mg PO Q4H PRN Nausea 05/01/22 07/05/24 History pregabalin 150 mg capsule (Lyrica) 300 mg PO Q12H 05/01/22 07/05/24 History levothyroxine 100 mcg tablet 100 mcg PO DAILY 05/17/22 07/05/24 History oxycodone-acetaminophen 5 mg-325 1 tablet PO Q6H PRN Pain, Moderate 05/17/22 07/05/24 History mg tablet memantine 5 mg tablet 5 mg PO BID 09/06/23 07/05/24 History naproxen 375 mg tablet 375 mg PO Q72H PRN Pain, Mild 09/06/23 07/05/24 History diphenhydramine HCl 25 mg capsule 25 mg PO Q6H PRN Itching 04/02/24 07/05/24 History (Allergy (diphenhydramine)) docusate sodium 100 mg capsule 100 mg PO BID 04/02/24 07/05/24 History (Colace) ergocalciferol (vitamin D2) 50,000 50,000 unit PO WEEKLY 04/02/24 07/05/24 History unit tablet glipizide 10 mg tablet, extended 10 mg PO DAILY 04/02/24 07/05/24 History release 24 hr hydrocortisone 2.5 % topical cream 1 applic topical BID 04/02/24 07/05/24 History multivitamin 1 tablet PO DAILY 04/02/24 07/05/24 History polyvinyl alcohol-povidone 1.4 1 drp ophthalmic (eye) QID PRN Dry 04/02/2407/05 History %-0.6 % eye drops Eyes nortriptyline 25 mg capsule 25 mg PO HS 07/05/24 07/05/24 History Allergies Allergy/AdvReac Type Severity Reaction Status Date / Time gemfibrozil Allergy Intermediate Rash Verified 06/24/24 07:10 hydrochlorothiazide Allergy Intermediate Rash Verified 06/24/24 07:10 irbesartan Allergy Intermediate Hives Verified 06/24/24 07:10 niacinamide Allergy Intermediate Rash Verified 06/24/24 07:10 amoxicillin (From Augmentin) AdvReac Intermediate Diarrhea Verified 06/24/24 07:10 clavulanic acid (From AdvReac Intermediate Diarrhea Verified 06/24/24 07:10 Augmentin) hydrocodone AdvReac Intermediate Dizziness Verified 06/24/24 07:10 lisinopril AdvReac Intermediate Dizziness Verified 06/24/24 07:10 Vital Signs Vital Signs - 24 hr 07/05/24 11:10 07/05/24 11:35 07/05/24 12:01 Temperature 102.4 F H Pulse Rate 122 H 140 H 127 H Respiratory Rate 18 Blood Pressure 131/60 Pulse Oximetry 94 98 100 Oxygen Delivery Mechanical Ventilation Mechanical Ventilation Mechanical Ventilation Fraction of Inspired Oxygen 100 50 07/05/24 12:55 07/05/24 13:40 07/05/24 13:50 Temperature Pulse Rate 120 H 118 H 122 H Respiratory Rate 18 18 Blood Pressure Pulse Oximetry 94 Oxygen Delivery Mechanical Ventilation Fraction of Inspired Oxygen 50 07/05/24 13:51 07/05/24 13:54 07/05/24 14:17 Temperature Pulse Rate 117 H 118 H Respiratory Rate 18 Blood Pressure Pulse Oximetry 93 Oxygen Delivery Mechanical Ventilation Fraction of Inspired Oxygen 50 07/05/24 14:28 Temperature 101.5 F H Pulse Rate 116 H Respiratory Rate 18 Blood Pressure 106/49 L Pulse Oximetry 92 Oxygen Delivery Fraction of Inspired Oxygen Exam Narrative: General: Intubated sedated HEENT: normocephalic, atraumatic. Mucous membranes moist. EOMI, PERRLA, bilateral sclera anicteric, no conjunctival injection. Neck supple without JVD, lymphadenopathy, or bruit. ETT, OG Respiratory: clear to ascultation bilaterally. Synchronized with the vent Cardiovascular: Regular rate and rhythm, normal S1-S2 upon ascultation. No murmurs, rubs, or clicks. capillary refill less than 3 second. Abdomen: Soft, round, no pulsatile masses, nondistended and nontender. No rebound, no guarding. Bowel sounds present to all four quadrants. No high pitch or tinkling sounds, resonant to percussion. Extremities: No cyanosis, clubbing, or edema present. Pulses are palpable 2/2. Neuro: Intubated sedated. PERRLA. Skin: Warm, dry, and intact, without rash, erythema, or lesion. Psych: Unable to assess H&P: Results Labs Labs: Short CBC 07/05/24 Range/Units 12:10 WBC 5.7 (4.5-10.0) K/mm3 Hgb 12.2 (12.0-15.0) g/dL Hct 39.4 (37.0-47.0) % Plt Count 194 (150-375) k/mm3 [facility] 07/05/24 07/05/24 07/05/24 12:10 12:10 12:36 Sodium 149 H Potassium 2.9 L Chloride 107 Carbon Dioxide 22 BUN 22 H Creatinine 0.87 Cancelled 1.00 Glucose 165 H Calcium 8.1 L Cardiac Enzymes 07/05/24 07/05/24 Range/Units 12:10 14:07 Troponin I 0.747 H* 2.270 H* D (0.000-0.034) ng/mL Liver Function 07/05/24 Range/Units 12:10 Total Bilirubin 1.1 (0.2-1.3) mg/dL AST 125 H (14-36) U/L ALT 35 (6-35) U/L Alkaline Phosphatase 162 H (38-126) U/L Albumin 3.4 L (3.5-5.1) g/dL Urine 07/05/24 Range/Units 12:22 Urine Color Yellow (Yellow) Urine Appearance Cloudy H (Clear) Urine pH 6.5 (5.0-9.0) Ur Specific [place] 1.016 (1.001-1.035) Urine Protein 1+ H (Negative) mg/dL Urine Glucose (UA) Trace H (Negative) mg/dL Assessment and Plan Assessment and plan (1) Acute respiratory failure with hypoxia: Code(s): J96.01 - Acute respiratory failure with hypoxia Status: Acute Assessment and Plan: SpO2 70% on room air according to EMS, patient likely aspirated on vomit CT showing Bilateral lower lobe pneumonia with additional small amount of pneumonia in the lingula Intubated emergency room Patient will be admitted to ICU IV cefepime, Flagyl and vancomycin (2) Severe sepsis with lactic acidosis: Code(s): A41.9 - Sepsis, unspecified organism; E87.2 - Acidosis; R65.20 - Severe sepsis without septic shock Status: Acute Assessment and Plan: Secondary to above Hypotension after Sepsis bolus given, central line placed Levo Repeat lactic trending down, repeat morning IV antibiotics (3) Elevated troponin: Code(s): R79.89 - Other specified abnormal findings of blood chemistry Status: Acute Assessment and Plan: Patient complaining of severe lower back pain yesterday with nausea vomiting this morning Cardiology consulted Aspirin per tube Trend troponins until flat Repeat EKG with troponins (4) Nausea & vomiting: Code(s): R11.2 - Nausea with vomiting, unspecified Status: Acute Assessment and Plan: NG tube low intermittent suction, Okay for meds through tube No bowel obstruction seen on CT (5) UTI (urinary tract infection): Qualifiers: Hematuria presence: with hematuria Urinary tract infection type: acute cystitis Qualified Code(s): N30.01 - Acute cystitis with hematuria Code(s): N39.0 - Urinary tract infection, site not specified Status: Acute Assessment and Plan: IV Rocephin (6) Diabetes mellitus: Code(s): E11.9 - Type 2 diabetes mellitus without complications Status: Acute Assessment and Plan: Patient CHRISTIANA Keita q.6 with sliding scale (7) Hypokalemia: Code(s): E87.6 - Hypokalemia Status: Acute Assessment and Plan: Replaced in the ED Repeat labs at 6:00 p.m. improving (8) Hypomagnesemia: Code(s): E83.42 - Hypomagnesemia Status: Acute Assessment and Plan: Replaced in the ED Repeat labs at 6:00 p.m. improving (9) Hypophosphatemia: Code(s): E83.39 - Other disorders of phosphorus metabolism Status: Acute Assessment and Plan: Replaced in the ED Repeat labs at 6:00 p.m. improving (10) Constipation: Code(s): K59.00 - Constipation, unspecified Status: Acute Assessment and Plan: She is on a home stool softener will probably need to be sent home on a laxative for aggressive bowel protocol Heavy stool burden on CT Daily suppository (11) Hypothyroidism: Qualifiers: Hypothyroidism type: acquired Qualified Code(s): E03.9 - Hypothyroidism, unspecified Code(s): E03.9 - Hypothyroidism, unspecified Status: Acute Assessment and Plan: Restart home meds Plan Trigeminal neuralgia unable to do home meds due to being capsules, start when able swallow meds Quality VTE Prophylaxis VTE prophylaxis: mechanical ordered Hospitalist MIPS Advance Care Plan I have confirmed that the patient's Advanced Care Plan is present, code status is documented, or surrogate decision maker is listed in patient medical record.: Yes Medication Reconciliation I have utilized all available resources to obtain, update and review the patients current medications (includes all prescriptions, OTC, herbals, cannabis, and nutritional supplements).: Yes
--- NOTE | 2024-07-05 14:58 | ECG_ITS ---
Test Date: 2024-07-05 23:28:21 Measurements Intervals [place] Rate: 102 P: 33 [place]: 151 QRS: -24 QRSD: 76 T: 17 QT: 340 QTc: 443 Interpretive Statements SINUS TACHYCARDIA WITH FREQUENT SUPRAVENTRICULAR PREMATURE COMPLEXES Poor R wave progression ABNORMAL RHYTHM ECG Compared to ECG 07/05/2024 13:48:01 T-wave abnormality no longer present Myocardial infarct finding still present Electronically Signed On 07-06-2024 22:12:09 MULE DRIVER by Eagle Linares M.D.
[2024-07-05 15:18] LABS: Reflex Lactic Acid Yes or No Add Lactic
[2024-07-05] MEDS: NOREPINEPHRINE 8 MG/D5W 250 ML 8 MG/250 ML BAG 9.38 MG IV CONT (15:30)
[2024-07-05] MEDS: MAGNESIUM SULF 2 GM/WATER 50ML 2 GM/50 ML BAG IVPB (15:32)
[2024-07-05] MEDS: LACTATED RINGERS 1,000 ML 100 ML IV CONT (15:39)
[2024-07-05 16:05] LABS: MRSA (PCR) NOT DETECTED (NOT DETECTE)
--- NOTE | 2024-07-05 16:48 | ADMGEN ---
This patient, Josephine Kong, was admitted to ICU 5 at 1643. Patient/family oriented to hospital policies and general routines including ID bracelet, bed and alarms, visiting hours, pain management, procedures, bathroom and other care routines, personal items, smoking policy, room service/diet, and visiting hours. Information on how to activate the Rapid Response Team has been discussed. Patient/Family are encouraged to report perceived risks to care and to ask questions if they do not understand what they are told or what they should do.
[2024-07-05] MEDS: POTASSIUM PHOS,M-BASIC-D-BASIC 20 MMOL in SODIUM CHLORIDE 0.9% IV 250 ML 64.17 MMOL IVPB (17:13)
[2024-07-05 17:39] LABS: Alanine Aminotransferase 29 U/L (6-35); Albumin Level 2.7 g/dL (3.5-5.1); Alkaline Phosphatase 119 U/L (38-126); Anion Gap 6 mmol/L (4-12); Aspartate Amino Transferase 101 U/L (14-36); Blood Urea Nitrogen 22 mg/dL (7-17); Calcium 7.4 mg/dL (8.4-10.2); Carbon Dioxide 21 mmol/L (22-30); Chloride 111 mmol/L (98-107); Estimated CRCL calculation 44 ml/min; Estimated Glomerular Filt Rate > 60; Glucose 138 mg/dL (65-110); Phosphorus 1.6 mg/dL (2.5-4.5); Sodium 138 mmol/L (137-145)
--- NOTE | 2024-07-05 17:54 | ECG_ITS ---
Test Date: 2024-07-05 18:10:51 Measurements Intervals [place] Rate: 98 P: 19 [place]: 139 QRS: -25 QRSD: 75 T: 15 QT: 369 QTc: 472 Interpretive Statements SINUS RHYTHM WITH OCCASIONAL SUPRAVENTRICULAR PREMATURE COMPLEXES POSSIBLE ANTERIOR MYOCARDIAL INFARCTION [30 ms Q WAVE IN V3/V4, OR R < 0.2 mV IN V4], PROBABLY OLD Compared to ECG 07/05/2024 13:48:01 Sinus tachycardia no longer present T-wave abnormality no longer present Myocardial infarct finding still present Electronically Signed On 07-06-2024 22:13:28 PERIODICALS CLERK by Eagle Linares M.D.
[2024-07-05 17:56] LABS: Glucose Point of Care 142 mg/dl (65-105)
[2024-07-05] MEDS: ASPIRIN 81 MG CHEWABLE TABLET 324 MG FEED TUBE (18:12)
--- NOTE | 2024-07-05 18:12 | PM.CNCAR ---
Assessment and Plan Assessment and plan (1) Elevated troponin: Code(s): R79.89 - Other specified abnormal findings of blood chemistry Status: Acute (2) Hyperlipidemia: Code(s): E78.5 - Hyperlipidemia, unspecified Status: Acute (3) Atrial fibrillation: Code(s): I48.91 - Unspecified atrial fibrillation Status: Acute (4) Essential hypertension: Code(s): I10 - Essential (primary) hypertension Status: Acute (5) Diabetes mellitus: Code(s): E11.9 - Type 2 diabetes mellitus without complications Status: Acute Plan Elevated troponin- unable to elicit symptoms of chest pain as patient is intubated; thus, cannot completely rule out type I NSTEMI Back pain Acute hypoxic respiratory failure s/p intubated and sedated secondary to pneumonia; CT chest showed pneumonia Hypokalemia- K of 2.9, being replaced Hypomagnesemia Sepsis secondary to UTI and pneumonia- on antibiotics vancomycin, cefepime, metronidazole Septic shock requiring levophed DM HTN Hyperlipidemia Plan: -Medical management for NSTEMI given patient is septic -Start Asa 81 mg daily -Continue statin -Trend troponin to peak -Monitor on telemetry for any arrhythmias -TTE in am to evaluate LVEF and RWMA -No BB or other blood pressure lowering meds given hypotension -Check and replace electrolytes as needed keeping K>4 and Mg>2 -Management of non cardiac medical problems per primary ICU team History of Present Illness History of Present Illness Consult date/time: 07/05/24 18:12 Reason For Visit: resp distress Narrative: 73-year-old female with history of shingles face, diabetes, hypothyroidism, hypertension, hyperlipidemia, breast cancer, and MGUS presents to the hospital with fever 102.4 and shortness of breath. Patient was intubated emergently in the ED for respiratory failure and is unable to provide any history. History is obtained from patient's and the medical chart. Per the the patient was complaining of severe back pain yesterday but no respiratory symptoms. He states that she was able to cook, clean, do laundry, and she even up and down stairs. She had an emesis this morning when she woke up and had more emesis after going back to bed. He called 911 due to patient having trouble breathing. Per EMS patient's SpO2 was 70% and she was placed on non-rebreather. In the ER patient was on 15 L non-rebreather with SpO2 in the low 90s and respiratory rate of 40 for which she was emergently intubated. Labs showed a potassium of 2.9, lactic acid of 3.5, magnesium 1.5, and troponin of 0.747, then 2.2. EKG showed sinus tachycardia with occasional PVCs, T-wave abnormality, heart rate 117, QTC 611. UA was negative for nitrates but had 1+ leukocyte esterase. Influenza A B, COVID, and RSV were negative. Blood cultures were drawn and pending. In the ED the patient was given IV Flagyl, vancomycin, 2 g magnesium, 20 millimoles of potassium phosphate. Patient was hypotensive after bolus of IV fluids were administered and she was started on levophed. Cardiology was consulted given elevated troponin. Review of Systems Review of Systems: A complete review of systems could not be performed due to patient being intubated. [facility] Past Medical History Medical History Hyperlipidemia Atrial fibrillation Iron deficiency anemia Hypothyroidism Breast cancer Small bowel obstruction Multiple small-bowel obstructions over the course of 20+ years. Essential hypertension Hypothyroidism Diabetes mellitus Shingles MGUS (monoclonal gammopathy of unknown significance) Bullous pemphigoid Surgical History Surgical History History of tubal ligation History of appendectomy Hx of cholecystectomy History of lumpectomy of right breast History of exploratory laparotomy (~2009) Due to small-bowel obstruction Family History Family History Mother , in her 90s Dementia Father , at age 72 Coronary artery disease Hx of CABG Social History Social History Social History: She lives in [place] with her of 44 years. They have 2 children. She is a former smoker but ?did not smoke that much?. She she does not drink alcohol. 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 Healthcare power of sales engagement manager: Years smoked: 47 Smoking status: Former smoker Second hand tobacco smoke exposure: Yes Alcohol intake: never Alcohol use details: occasional glass of wine Substance use: never Substance use type: does not use Last use: t-2 Do You Feel Safe in your Home?: Yes Lack of Transportation: No Lack of Food: Never True Current Housing: I Have Housing Concerned About Future Housing: No Difficulty Paying Gas/Electric Bills: No Difficulty Paying for Meds: No Currently Unemployed: No Education: High School Diploma/GED Difficulty w/ Childcare or Family Care: No Living arrangements: with family Gender identity (if verbalized by the patient): Female Spiritual care concerns: No Meds Home Medications and Allergies Home Medications ?Medication ?Instructions ?Recorded ?Confirmed ?Type amlodipine 10 mg tablet 10 mg PO DAILY 02/05/21 07/05/24 History fenofibrate 160 mg tablet 160 mg PO DAILY 02/05/21 07/05/24 History rosuvastatin 40 mg tablet 40 mg PO DAILY 02/05/21 07/05/24 History erythromycin 2 % topical solution 1 ml topical TID Itching 05/01/22 07/05/24 History ondansetron HCl 4 mg tablet 4 mg PO Q4H PRN Nausea 05/01/22 07/05/24 History pregabalin 150 mg capsule (Lyrica) 300 mg PO Q12H 05/01/22 07/05/24 History levothyroxine 100 mcg tablet 100 mcg PO DAILY 05/17/22 07/05/24 History oxycodone-acetaminophen 5 mg-325 1 tablet PO Q6H PRN Pain, Moderate 05/17/22 07/05/24 History mg tablet memantine 5 mg tablet 5 mg PO BID 09/06/23 07/05/24 History naproxen 375 mg tablet 375 mg PO Q72H PRN Pain, Mild 09/06/23 07/05/24 History diphenhydramine HCl 25 mg capsule 25 mg PO Q6H PRN Itching 04/02/24 07/05/24 History (Allergy (diphenhydramine)) docusate sodium 100 mg capsule 100 mg PO BID 04/02/24 07/05/24 History (Colace) ergocalciferol (vitamin D2) 50,000 50,000 unit PO WEEKLY 04/02/24 07/05/24 History unit tablet glipizide 10 mg tablet, extended 10 mg PO DAILY 04/02/24 07/05/24 History release 24 hr hydrocortisone 2.5 % topical cream 1 applic topical BID 04/02/24 07/05/24 History multivitamin 1 tablet PO DAILY 04/02/24 07/05/24 History polyvinyl alcohol-povidone 1.4 1 drp ophthalmic (eye) QID PRN Dry 04/02/24 07/05/24 History %-0.6 % eye drops Eyes nortriptyline 25 mg capsule 25 mg PO HS 07/05/24 07/05/24 History Allergies Allergy/AdvReac Type Severity Reaction Status Date / Time gemfibrozil Allergy Intermediate Rash Verified 06/24/24 07:10 hydrochlorothiazide Allergy Intermediate Rash Verified 06/24/24 07:10 irbesartan Allergy Intermediate Hives Verified 06/24/24 07:10 niacinamide Allergy Intermediate Rash Verified 06/24/24 07:10 amoxicillin (From Augmentin) AdvReac Intermediate Diarrhea Verified 06/24/24 07:10 clavulanic acid (From AdvReac Intermediate Diarrhea Verified 06/24/24 07:10 Augmentin) hydrocodone AdvReac Intermediate Dizziness Verified 06/24/24 07:10 lisinopril AdvReac Intermediate Dizziness Verified 06/24/24 07:10 Vital Signs Vital Signs - 24 hr 07/05/24 11:10 07/05/24 11:35 07/05/24 12:01 Temperature 39.1 C H Pulse Rate 122 H 140 H 127 H Respiratory Rate 18 Blood Pressure 131/60 Pulse Oximetry 94 98 100 Oxygen Delivery Mechanical Ventilation Mechanical Ventilation Mechanical Ventilation Fraction of Inspired Oxygen 100 50 07/05/24 12:55 07/05/24 13:40 07/05/24 13:50 Temperature Pulse Rate 120 H 118 H 122 H Respiratory Rate 18 18 Blood Pressure Pulse Oximetry 94 Oxygen Delivery Mechanical Ventilation Fraction of Inspired Oxygen 50 07/05/24 13:51 07/05/24 13:54 07/05/24 14:17 Temperature Pulse Rate 117 H 118 H Respiratory Rate 18 Blood Pressure Pulse Oximetry 93 Oxygen Delivery Mechanical Ventilation Fraction of Inspired Oxygen 50 07/05/24 14:28 07/05/24 15:26 07/05/24 15:27 Temperature 38.6 C H Pulse Rate 116 H 108 H 107 H Respiratory Rate 18 18 18 Blood Pressure 106/49 L Pulse Oximetry 92 Oxygen Delivery Fraction of Inspired Oxygen 07/05/24 15:30 07/05/24 15:35 07/05/24 16:00 Temperature Pulse Rate 109 H 106 H 10 L Respiratory Rate Blood Pressure 87/42 L 79/45 L 117/54 L Pulse Oximetry Oxygen Delivery Fraction of Inspired Oxygen 07/05/24 16:33 07/05/24 16:52 07/05/24 16:54 Temperature 38.4 C H Pulse Rate 101 H 88 Respiratory Rate 20 Blood Pressure 105/51 L Pulse Oximetry 96 93 Oxygen Delivery Mechanical Ventilation Fraction of Inspired Oxygen 50 50 Results Labs and Meds 07/05/24 12:10 07/05/24 17:22 Lab results: Cardiac Enzymes 07/05/24 07/05/24 07/05/24 Range/Units 12:10 14:07 17:22 AST 125 H 101 H (14-36) U/L Troponin I 0.747 H* 2.270 H* D 2.950 H* D (0.000-0.034) ng/mL Coagulation 07/05/24 Range/Units 12:10 PT 15.5 H (11.1-14.7) Seconds APTT 26.0 (22.3-36.8) Seconds CBC 07/05/24 Range/Units 12:10 WBC 5.7 (4.5-10.0) K/mm3 RBC 4.30 (4.2-5.4) M/mm3 Hgb 12.2 (12.0-15.0) g/dL Hct 39.4 (37.0-47.0) % Plt Count 194 (150-375) k/mm3 Lymph # (Auto) 0.29 L (0.9-3.2) K/mm3 [place] # (Auto) 0.1 (0.1-0.6) K/mm3 Eos # (Auto) 0.1 (0-0.3) K/mm3 Baso # (Auto) 0.0 (0.0-0.1) K/mm3 Comprehensive Metabolic Panel 07/05/24 07/05/24 07/05/24 Range/Units 12:10 12:10 12:36 Sodium 149 H (137-145) mmol/L Potassium 2.9 L (3.4-5.0) mmol/L Chloride 107 (98-107) mmol/L Carbon Dioxide 22 (22-30) mmol/L BUN 22 H (7-17) mg/dL Creatinine 0.87 Cancelled 1.00 (0.7-1.0) mg/dL Glucose 165 H (65-110) mg/dL Calcium 8.1 L (8.4-10.2) mg/dL AST 125 H (14-36) U/L ALT 35 (6-35) U/L Alkaline Phosphatase 162 H (38-126) U/L Total Protein 6.0 L (6.3-8.2) g/dL Albumin 3.4 L (3.5-5.1) g/dL 07/05/24 Range/Units 17:22 Sodium 138 (137-145) mmol/L Potassium 3.0 L (3.4-5.0) mmol/L Chloride 111 H (98-107) mmol/L Carbon Dioxide 21 L (22-30) mmol/L BUN 22 H (7-17) mg/dL Creatinine 0.85 (0.7-1.0) mg/dL Glucose 138 H (65-110) mg/dL Calcium 7.4 L (8.4-10.2) mg/dL AST 101 H (14-36) U/L ALT 29 (6-35) U/L Alkaline Phosphatase 119 (38-126) U/L Total Protein 5.0 L (6.3-8.2) g/dL Albumin 2.7 L (3.5-5.1) g/dL Intake and Output 07/05/24 07/05/24 07/05/24 07:59 15:59 23:59 Intake Total 1121.7 5.5 Output Total 400 Balance 721.7 5.5 Intake: IV 1121.7 5.5 Fentanyl 2,500Mcg/Wv025kf(*Crx 17.7 2,500 mcg In 250 ml @ 100 MCG/ HR 10 mls/hr IV CONT .Q25H STA Rx#:[id number] Midazolam 100Mg/Ns 100Ml(*Crx) 3.2 100 mg In 100 ml @ 2 MG/HR 2 mls/hr IV CONT .Q50H STA Rx#: [id number] Norepinephrine 8 mg/D5w 250 ml 0.8 5.5 8 mg In 250 ml @ 5 MCG/MIN 9. 375 mls/hr IV CONT .Q24H STA Rx #:[id number] Sodium Chloride 0.9% IV 1,000 1000 ml @ 999 mls/hr IV CONT .Q1H1M STA Rx#:[id number] metroNIDAZOLE 500 MG/ISO 100ML 100 500 mg In 100 ml @ 100 mls/hr IVPB ONCE STA Rx#:[id number] Output: Urine 400 Patient Weight 07/05/24 23:59 Weight 53.8 kg
[2024-07-05] MEDS: CALCIUM GLUC 2,000 MG/NS 100ML 2,000 MG/100 ML BAG 100 MG IVPB (18:46)
[2024-07-05] MEDS: ROSUVASTATIN 20 MG TABLET 40 MG PO (21:54)
[2024-07-05 23:52] LABS: Glucose Point of Care 83 mg/dl (65-105)
[2024-07-06] VITALS (44 sets, daily range): BP systolic 95–128; BP diastolic 48–87; PULSE 88–127; RESP 18–34; TEMP 37.2–39.2; O2SAT 91–99
[2024-07-06] MEDS: ALBUMIN HUMAN 25% 25 GM/100 ML 100 ML IVPB ×3 (00:27→11:36)
[2024-07-06] MEDS: CEFEPIME 2 GM/NS 50 ML 2 GM/50 ML BAG IVPB ×2 (00:28→11:32)
[2024-07-06 05:19] LABS: Alveolar/Arterial O2 Gradient 112.7 mmHg; Base Excess ABG -2.7 mEq/l (+/-2.0); Carboxyhemoglobin 0.7 % THb (0-2.0); Fractional Inspired Oxygen 30 %; HCO3 ABG 21.2 mEq/l (22.0-26.0); Methemoglobin ABG 0.3 %THb (0-1.5); Oxygen Content ABG 14.8 %vol (16.0-22.0); Oxygen Saturation ABG 92.2 % (95.0-100.0); Oxyhemoglobin 91.4 % THb (90.0-100.0); PCO2 ABG 33.7 mmHg (35.0-45.0); PO2 ABG 61.6 mmHg (80.0-100.0); PO2 FiO2 Ratio Arterial Blood 2.05 %; Reduced Hemoglobin 7.6 %THb (0-5.0); Total Hemoglobin 11.5 g/dL (12.0-18.0); pH ABG 7.417 (7.350-7.450)
[2024-07-06 05:21] LABS: Arterial Blood Gas PEEP 5 cmH2O; Arterial Blood Gas Tidal Volume 420 ml; Arterial Blood Gas Vent Mode CMV; Arterial Blood Gas Ventilator rate 18 /MIN; Device VENTILATOR; Modified Allen's Test Pass; Site Drawn LEFT RADIAL
[2024-07-06] MEDS: LEVOTHYROXINE SODIUM 100 MCG TABLET FEED TUBE (06:09)
[2024-07-06] MEDS: metroNIDAZOLE 500 MG/ISO 100ML 500 MG/100 ML BAG 100 MG IVPB ×3 (06:09→22:30)
[2024-07-06 06:14] LABS: Hematocrit 32.2 % (37.0-47.0); Hemoglobin 10.3 g/dL (12.0-15.0); Mean Corpuscular Hemoglobin 29.4 pg (26-34); Mean Platelet Volume 10.6 fl (7.4-10.4); Platelet Count Result 185 k/mm3 (150-375); Red Cell Distribution Width 16.8 % (11.5-14.5); White Blood Count 16.6 K/mm3 (4.5-10.0)
[2024-07-06 06:27] LABS: Alanine Aminotransferase 23 U/L (6-35); Alkaline Phosphatase 74 U/L (38-126); Anion Gap 8 mmol/L (4-12); Aspartate Amino Transferase 59 U/L (14-36); Bilirubin,Total 1.3 mg/dL (0.2-1.3); Blood Urea Nitrogen 24 mg/dL (7-17); Calcium 8.1 mg/dL (8.4-10.2); Carbon Dioxide 21 mmol/L (22-30); Chloride 110 mmol/L (98-107); Estimated CRCL calculation 47 ml/min; Estimated Glomerular Filt Rate > 60; Glucose 91 mg/dL (65-110); Magnesium 1.7 mg/dL (1.6-2.3); Phosphorus 4.1 mg/dL (2.5-4.5); Potassium 3.3 mmol/L (3.4-5.0); Sodium 139 mmol/L (137-145)
[2024-07-06 06:28] LABS: Lactic Acid Reflex 1.7 mmol/L (0.7-2.0)
[2024-07-06 07:22] LABS: Anisocytosis 1+; Band Neutrophils Percent 14 % (0-6); Basophils Absolute Manual 0.16 K/mm3 (0.0-0.1); Basophils Percent Manual 1 % (0-1); Eosinophils Absolute Manual 0.16 K/mm3 (0.02-0.50); Eosinophils Percent Manual 1 % (0-4); Lymphocytes Absolute Manual 1.49 K/mm3 (1.1-4.5); Lymphocytes Percent Manual 9 % (18-44); Monocytes Absolute Manual 0.16 K/mm3 (0.1-0.90); Monocytes Percent Manual 1 % (3-9); Neutrophils Percent Manual 74 % (46-73); Platelet Estimate Adequate (Adequate); Schistocytes None Seen; Total Cells Counted 100
--- NOTE | 2024-07-06 09:30 | P.CONIN_ITS ---
Assessment and Plan Assessment and plan (1) Acute respiratory failure with hypoxia: Code(s): J96.01 - Acute respiratory failure with hypoxia Status: Acute Assessment and Plan: Acute respiratory failure secondary to pneumonia which is likely aspiration CT scan chest x-ray and ABG reviewed Ventilator settings reviewed Will perform sedation holiday and evaluate patient for weaning trial (2) Septic shock: Code(s): A41.9 - Sepsis, unspecified organism; R65.21 - Severe sepsis with septic shock Status: Acute Assessment and Plan: Septic shock secondary to aspiration pneumonia and UTI Continue cefepime and Flagyl. Discontinue vancomycin MRSA screen negative, blood and urine cultures have been sent and are pending patient does have E coli history which was not ESBL Continue Levophed titration Continue IV fluids but at low rate Continue 25% albumin (3) Pneumonia: Code(s): J18.9 - Pneumonia, unspecified organism Status: Acute Assessment and Plan: See above (4) Hyperlipidemia: Code(s): E78.5 - Hyperlipidemia, unspecified Status: Acute Assessment and Plan: Rosuvastatin (5) Diabetes mellitus: Code(s): E11.9 - Type 2 diabetes mellitus without complications Status: Acute Assessment and Plan: Sliding scale insulin (6) Nausea & vomiting: Code(s): R11.2 - Nausea with vomiting, unspecified Status: Acute Assessment and Plan: Patient now intubated and sedated CT abdomen does not show any evidence of obstruction (7) UTI (urinary tract infection): Qualifiers: Hematuria presence: with hematuria Urinary tract infection type: acute cystitis Qualified Code(s): N30.01 - Acute cystitis with hematuria Code(s): N39.0 - Urinary tract infection, site not specified Status: Acute Assessment and Plan: Antibiotics as above (8) Elevated troponin: Code(s): R79.89 - Other specified abnormal findings of blood chemistry Status: Acute Assessment and Plan: Patient presented with elevated troponin which peaked at 3.1 and now is trending down This appears to be type 2 non STEMI likely secondary to respiratory failure and septic shock. EKG was done and does not show any signs of ischemia. Patient did not complain of any chest pain at the time of presentation Continue aspirin and statin Check echocardiogram Cardiology consulted Start therapeutic dose Lovenox as patient also is in AFib now (9) Atrial fibrillation: Code(s): I48.91 - Unspecified atrial fibrillation Status: Acute Assessment and Plan: Patient went into AFib with ventricular rate is mostly controlled. Patient is also on Levophed. Will start therapeutic dose Lovenox and also give amiodarone bolus Plan DVT prophylaxis -Lovenox Stress ulcer prophylaxis -PPI Nutrition -npo Code Status -patient's confirms patient code status to DNR. He states that patient even does not monitor via ventilator but he says it chance for a short of time to see if she gets better I updated him with patient's status and answered all his questions. Case discussed with Cardiology Total Critical Care Time - 36 minutes Due to a high probability of clinically significant, life threatening deterioration, the patient required my highest level of preparedness to intervene emergently and I personally spent this critical care time directly and personally managing the patient. This critical care time included obtaining a history; examining the patient; pulse oximetry; ordering and review of studies; arranging urgent treatment with development of a management plan; evaluation of patient's response to treatment; frequent reassessment; and discussions with other providers. It was exclusive of separately billable procedures and treating other patients and teaching time. 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 HPI is limited as patient was in respiratory distress and was intubated emergently in the ED. history was provided by states the patient started having vomiting 8:00 a.m. and had multiple episodes of vomiting. Then she went to bed and laid down and had another episode of vomiting where she was able to grab a trash can and vomiting to it. states that the following that patient had another episode of vomiting where she was laying flat and was unable to get up quickly. Post that patient started feeling sick and had fever. He called 911 and patient was brought to the hospital. He states the patient did not eat anything prior to vomiting and has regular dinner the night before. He states that she was not sick when went to bed the night before. Her reports the patient does have had chronic pain in her face which has been non amenable to any treatments Per EMS patient's SpO2 was 70% she is placed on non-rebreather for transportation. Upon arrival patient was on 15 L non-rebreather with SpO2 in the low 90s and respiratory rate of 40 so she was emergently intubated. ABG after intubation is adequate, sodium is 149, potassium 2.9, lactic acid of 3.5, calcium of 8.1, phosphorus at 1.7, magnesium 1.5, baseline troponin 0.747 with EKG showing sinus tachycardia with occasional PVCs, T-wave abnormality rate 117 QTC 611 and 2 hour troponin 2.270 with EKG pending. UA shows negative for nitrates, 1+ leukocyte esterase, influenza a B, COVID and RSV negative. In the ED the patient was given IV Flagyl, vancomycin and cefepime, 2 g magnesium, 20 millimoles of potassium phosphate. Blood cultures were done. She will be admitted to the ICU. Patient was still hypotensive after sepsis bolus a central line was placed and patient was started on levo. Cardiology consulted for elevated troponin This morning patient continues to be on mechanical ventilation and is sedated. Patient is on Levophed at 5 mics and sedated with Versed and fentanyl Review of Systems 2 Review of Systems: ROS unobtainable: Yes unobtainable due to endotracheal tube, unobtainable due to medical condition and unobtainable due to mental status PMFSH Past Medical History Medical History Hyperlipidemia Atrial fibrillation Iron deficiency anemia Hypothyroidism Breast cancer Small bowel obstruction Multiple small-bowel obstructions over the course of 20+ years. Essential hypertension Hypothyroidism Diabetes mellitus Shingles MGUS (monoclonal gammopathy of unknown significance) Bullous pemphigoid Surgical History Surgical History History of tubal ligation History of appendectomy Hx of cholecystectomy History of lumpectomy of right breast History of exploratory laparotomy (~2009) Due to small-bowel obstruction Family History Family History Mother , in her 90s Dementia Father , at age 72 Coronary artery disease Hx of CABG Social History Social History Social History: She lives in [place] with her of 44 years. They have 2 children. She is a former smoker but ?did not smoke that much?. She she does not drink alcohol. 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: Years smoked: 47 Smoking status: Former smoker Second hand tobacco smoke exposure: Yes Alcohol intake: never Alcohol use details: occasional glass of wine Substance use: never Substance use type: does not use Last use: t-2 Do You Feel Safe in your Home?: Yes Lack of Transportation: No Lack of Food: Never True Current Housing: I Have Housing Concerned About Future Housing: No Difficulty Paying Gas/Electric Bills: No Difficulty Paying for Meds: No Currently Unemployed: No Education: High School Diploma/GED Difficulty w/ Childcare or Family Care: No Living arrangements: with family Gender identity (if verbalized by the patient): Female Spiritual care concerns: No Meds Home Medications and Allergies Home Medications ?Medication ?Instructions ?Recorded ?Confirmed ?Type amlodipine 10 mg tablet 10 mg PO DAILY 02/05/21 07/05/24 History fenofibrate 160 mg tablet 160 mg PO DAILY 02/05/21 07/05/24 History rosuvastatin 40 mg tablet 40 mg PO DAILY 02/05/21 07/05/24 History erythromycin 2 % topical solution 1 ml topical TID Itching 05/01/22 07/05/24 History ondansetron HCl 4 mg tablet 4 mg PO Q4H PRN Nausea 05/01/22 07/05/24 History pregabalin 150 mg capsule (Lyrica) 300 mg PO Q12H 05/01/22 07/05/24 History levothyroxine 100 mcg tablet 100 mcg PO DAILY 05/17/22 07/05/24 History oxycodone-acetaminophen 5 mg-325 1 tablet PO Q6H PRN Pain, Moderate 05/17/22 07/05/24 History mg tablet memantine 5 mg tablet 5 mg PO BID 09/06/23 07/05/24 History naproxen 375 mg tablet 375 mg PO Q72H PRN Pain, Mild 09/06/23 07/05/24 History diphenhydramine HCl 25 mg capsule 25 mg PO Q6H PRN Itching 04/02/24 07/05/24 History (Allergy (diphenhydramine)) docusate sodium 100 mg capsule 100 mg PO BID 04/02/24 07/05/24 History (Colace) ergocalciferol (vitamin D2) 50,000 50,000 unit PO WEEKLY 04/02/24 07/05/24 History unit tablet glipizide 10 mg tablet, extended 10 mg PO DAILY 04/02/24 07/05/24 History release 24 hr hydrocortisone 2.5 % topical cream 1 applic topical BID 04/02/24 07/05/24 History multivitamin 1 tablet PO DAILY 04/02/24 07/05/24 History polyvinyl alcohol-povidone 1.4 1 drp ophthalmic (eye) QID PRN Dry 04/02/24 07/05/24 History %-0.6 % eye drops Eyes nortriptyline 25 mg capsule 25 mg PO HS 07/05/24 07/05/24 History Allergies Allergy/AdvReac Type Severity Reaction Status Date / Time gemfibrozil Allergy Intermediate Rash Verified 06/24/24 07:10 hydrochlorothiazide Allergy Intermediate Rash Verified 06/24/24 07:10 irbesartan Allergy Intermediate Hives Verified 06/24/24 07:10 niacinamide Allergy Intermediate Rash Verified 06/24/24 07:10 amoxicillin (From Augmentin) AdvReac Intermediate Diarrhea Verified 06/24/24 07:10 clavulanic acid (From AdvReac Intermediate Diarrhea Verified 06/24/24 07:10 Augmentin) hydrocodone AdvReac Intermediate Dizziness Verified 06/24/24 07:10 lisinopril AdvReac Intermediate Dizziness Verified 06/24/24 07:10 Vital Signs Vital Signs - 24 hr 07/05/24 11:10 07/05/24 11:35 07/05/24 12:01 Temperature 39.1 C H Pulse Rate 122 H 140 H 127 H Respiratory Rate 18 Blood Pressure 131/60 Pulse Oximetry 94 98 100 Oxygen Delivery Mechanical Ventilation Mechanical Ventilation Mechanical Ventilation Fraction of Inspired Oxygen 100 50 07/05/24 12:55 07/05/24 13:40 07/05/24 13:50 Temperature Pulse Rate 120 H 118 H 122 H Respiratory Rate 18 18 Blood Pressure Pulse Oximetry 94 Oxygen Delivery Mechanical Ventilation Fraction of Inspired Oxygen 50 07/05/24 13:51 07/05/24 13:54 07/05/24 14:17 Temperature Pulse Rate 117 H 118 H Respiratory Rate 18 Blood Pressure Pulse Oximetry 93 Oxygen Delivery Mechanical Ventilation Fraction of Inspired Oxygen 50 07/05/24 14:28 07/05/24 15:26 07/05/24 15:27 Temperature 38.6 C H Pulse Rate 116 H 108 H 107 H Respiratory Rate 18 18 18 Blood Pressure 106/49 L Pulse Oximetry 92 Oxygen Delivery Fraction of Inspired Oxygen 07/05/24 15:30 07/05/24 15:35 07/05/24 16:00 Temperature Pulse Rate 109 H 106 H 10 L Respiratory Rate Blood Pressure 87/42 L 79/45 L 117/54 L Pulse Oximetry Oxygen Delivery Fraction of Inspired Oxygen 07/05/24 16:33 07/05/24 16:45 07/05/24 16:45 Temperature Pulse Rate 101 H 97 97 Respiratory Rate 18 18 Blood Pressure Pulse Oximetry 96 Oxygen Delivery Mechanical Ventilation Fraction of Inspired Oxygen 50 07/05/24 16:45 07/05/24 16:45 07/05/24 16:45 Temperature 38.4 C H 38.4 C H Pulse Rate 97 97 Respiratory Rate 18 Blood Pressure 105/51 L 105/51 L Pulse Oximetry 94 Oxygen Delivery Fraction of Inspired Oxygen 07/05/24 16:45 07/05/24 16:45 07/05/24 16:52 Temperature Pulse Rate Respiratory Rate Blood Pressure Pulse Oximetry 94 Oxygen Delivery Mechanical Ventilation Fraction of Inspired Oxygen 50 50 50 07/05/24 16:54 07/05/24 18:00 07/05/24 18:00 Temperature 38.4 C H Pulse Rate 88 97 97 Respiratory Rate 20 18 18 Blood Pressure 105/51 L Pulse Oximetry 93 Oxygen Delivery Fraction of Inspired Oxygen 07/05/24 18:00 07/05/24 18:00 07/05/24 18:00 Temperature 38.3 C H Pulse Rate 97 98 97 Respiratory Rate 20 Blood Pressure 104/53 L 111/55 L Pulse Oximetry 96 Oxygen Delivery Fraction of Inspired Oxygen 07/05/24 19:44 07/05/24 20:00 07/05/24 20:00 Temperature Pulse Rate 95 97 97 Respiratory Rate 18 18 Blood Pressure Pulse Oximetry 98 Oxygen Delivery Mechanical Ventilation Fraction of Inspired Oxygen 50 07/05/24 20:00 07/05/24 20:00 07/05/24 20:00 Temperature Pulse Rate 97 97 Respiratory Rate Blood Pressure 114/56 L Pulse Oximetry 95 Oxygen Delivery Mechanical Ventilation Fraction of Inspired Oxygen 40 07/05/24 20:00 07/05/24 20:24 07/05/24 20:35 Temperature 38.2 C H Pulse Rate 95 Respiratory Rate 24 H Blood Pressure 114/56 L Pulse Oximetry 95 94 Oxygen Delivery Mechanical Ventilation Fraction of Inspired Oxygen 40 40 07/05/24 22:00 07/05/24 22:00 07/05/24 22:00 Temperature Pulse Rate 104 H 104 H 104 H Respiratory Rate 19 19 Blood Pressure 112/56 L Pulse Oximetry Oxygen Delivery Fraction of Inspired Oxygen 07/05/24 22:00 07/05/24 22:12 07/05/24 22:57 Temperature 38.4 C H Pulse Rate 105 H 101 H 103 H Respiratory Rate 24 H Blood Pressure 112/56 L Pulse Oximetry 95 96 Oxygen Delivery Mechanical Ventilation Fraction of Inspired Oxygen 40 07/06/24 00:00 07/06/24 00:00 07/06/24 00:00 Temperature Pulse Rate 103 H 103 H 103 H Respiratory Rate 18 18 Blood Pressure 104/53 L Pulse Oximetry Oxygen Delivery Fraction of Inspired Oxygen 07/06/24 00:00 07/06/24 00:00 07/06/24 00:00 Temperature Pulse Rate 100 Respiratory Rate Blood Pressure Pulse Oximetry 97 Oxygen Delivery Mechanical Ventilation Fraction of Inspired Oxygen 40 40 07/06/24 00:18 07/06/24 01:56 07/06/24 02:00 Temperature 38.5 C H Pulse Rate 102 H 97 97 Respiratory Rate 24 H 18 Blood Pressure 104/53 L Pulse Oximetry 96 99 Oxygen Delivery Mechanical Ventilation Fraction of Inspired Oxygen 40 07/06/24 02:00 07/06/24 02:00 07/06/24 02:00 Temperature Pulse Rate 97 97 97 Respiratory Rate 18 Blood Pressure 110/48 L Pulse Oximetry Oxygen Delivery Fraction of Inspired Oxygen 07/06/24 02:00 07/06/24 02:19 07/06/24 04:00 Temperature 38.5 C H Pulse Rate 97 101 H Respiratory Rate 18 18 Blood Pressure 110/48 L Pulse Oximetry 98 97 Oxygen Delivery Mechanical Ventilation Fraction of Inspired Oxygen 30 07/06/24 04:00 07/06/24 04:00 07/06/24 04:00 Temperature Pulse Rate 101 H 101 H 97 Respiratory Rate 18 Blood Pressure 112/52 L Pulse Oximetry Oxygen Delivery Fraction of Inspired Oxygen 07/06/24 04:00 07/06/24 04:00 07/06/24 04:11 Temperature 38.2 C H Pulse Rate 103 H Respiratory Rate 24 H Blood Pressure 112/52 L Pulse Oximetry 96 96 Oxygen Delivery Mechanical Ventilation Fraction of Inspired Oxygen 30 30 07/06/24 06:00 07/06/24 06:00 07/06/24 06:00 Temperature Pulse Rate 95 95 95 Respiratory Rate 18 18 Blood Pressure 121/48 L Pulse Oximetry Oxygen Delivery Fraction of Inspired Oxygen 07/06/24 06:00 07/06/24 06:08 07/06/24 07:15 Temperature Pulse Rate 95 95 91 Respiratory Rate 24 H Blood Pressure 121/48 L 113/52 L Pulse Oximetry 97 Oxygen Delivery Fraction of Inspired Oxygen 07/06/24 07:57 07/06/24 08:00 07/06/24 08:00 Temperature Pulse Rate 89 91 91 Respiratory Rate 18 18 Blood Pressure Pulse Oximetry 99 Oxygen Delivery Mechanical Ventilation Fraction of Inspired Oxygen 30 07/06/24 08:00 07/06/24 08:00 07/06/24 08:45 Temperature Pulse Rate 91 95 Respiratory Rate Blood Pressure 113/50 L 110/54 L Pulse Oximetry Oxygen Delivery Fraction of Inspired Oxygen 30 07/06/24 08:45 07/06/24 08:45 07/06/24 09:17 Temperature Pulse Rate 95 95 123 H Respiratory Rate 18 18 Blood Pressure Pulse Oximetry 94 Oxygen Delivery Mechanical Ventilation Fraction of Inspired Oxygen 30 07/06/24 09:20 07/06/24 09:25 Temperature Pulse Rate 118 H Respiratory Rate Blood Pressure 95/63 L Pulse Oximetry Oxygen Delivery Fraction of Inspired Oxygen 30 Exam 2 Narrative: General: Pt is sedated, intubated and on mechanical ventilation Lungs/Chest: Trachea central Coarse BS B/L, No crackles or wheezing. Cardiac: RRR. Normal S1 S2. No murmurs Circulation: Pedal pulses are intact and symmetrical. Abdomen: Decreased bowel sounds. Obese. Soft. NT. ND. Extremities: No clubbing, cyanosis or edema. Warm : Jones in place Neurologic: Unable to assess due to sedation. PERRL Results Labs 07/06/24 06:06 07/06/24 06:06 Labs: Impressions Abdomen X-Ray 07/05/24 11:55 IMPRESSION: 1. Endotracheal tube and nasogastric tube in expected positions. 2. Mild opacities in the left mid to lower lung zone which could represent atelectasis or pneumonia. 2. Nonspecific bowel gas pattern without frankly dilated bowel to suggest obstruction. Chest X-Ray 07/05/24 11:55 IMPRESSION: 1. Endotracheal tube and nasogastric tube in expected positions. 2. Mild opacities in the left mid to lower lung zone which could represent atelectasis or pneumonia. 2. Nonspecific bowel gas pattern without frankly dilated bowel to suggest obstruction. Head CT 07/05/24 12:59 IMPRESSION: 1. Normal aging brain. No acute intracranial process. Chest/Abdomen/Pelvis CT 07/05/24 13:11 IMPRESSION: 1. Bilateral lower lobe pneumonia with additional small amount of pneumonia in the lingula. 2. No acute intra-abdominal/pelvic process. Chest X-Ray 07/05/24 15:21 IMPRESSION: Small left-sided pleural effusion. Supportive lines and tubes in position, as detailed above. Chest X-Ray 07/06/24 07:14 Impression: Support tubes, as above. Bibasilar atelectasis and possible minimal central congestive change, as above. Short CBC 07/05/24 07/06/24 Range/Units 12:10 06:06 WBC 5.7 16.6 H (4.5-10.0) K/mm3 Hgb 12.2 10.3 L (12.0-15.0) g/dL Hct 39.4 32.2 L (37.0-47.0) % Plt Count 194 185 (150-375) k/mm3 BMP 07/05/24 07/05/24 07/05/24 12:10 12:10 12:36 Sodium 149 H Potassium 2.9 L Chloride 107 Carbon Dioxide 22 BUN 22 H Creatinine 0.87 Cancelled 1.00 Glucose 165 H Calcium 8.1 L 07/05/24 07/06/24 17:22 06:06 Sodium 138 139 Potassium 3.0 L 3.3 L Chloride 111 H 110 H Carbon Dioxide 21 L 21 L BUN 22 H 24 H Creatinine 0.85 0.79 Glucose 138 H 91 Calcium 7.4 L 8.1 L Cardiac Enzymes 07/05/24 07/05/24 07/05/24 Range/Units 12:10 14:07 17:22 Troponin I 0.747 H* 2.270 H* D 2.950 H* D (0.000-0.034) ng/mL 07/06/24 07/06/24 Range/Units 01:04 06:06 Troponin I 3.100 H* 2.810 H* (0.000-0.034) ng/mL Liver Function 07/05/24 07/05/24 07/06/24 Range/Units 12:10 17:22 06:06 Total Bilirubin 1.1 1.0 1.3 (0.2-1.3) mg/dL AST 125 H 101 H 59 H (14-36) U/L ALT 35 29 23 (6-35) U/L Alkaline Phosphatase 162 H 119 74 (38-126) U/L Albumin 3.4 L 2.7 L 3.0 L (3.5-5.1) g/dL Urine 07/05/24 Range/Units 12:22 Urine Color Yellow (Yellow) Urine Appearance Cloudy H (Clear) Urine pH 6.5 (5.0-9.0) Ur Specific [place] [employer] 1.016 (1.001-1.035) Urine Protein 1+ H (Negative) mg/dL Urine Glucose (UA) Trace H (Negative) mg/dL ECG Interpretation: EKG reviewed no ST elevation Quality VTE Prophylaxis VTE prophylaxis: pharmacologic ordered Hospitalist MIPS Advance Care Plan I have confirmed that the patient's Advanced Care Plan is present, code status is documented, or surrogate decision maker is listed in patient medical record.: Yes Medication Reconciliation I have utilized all available resources to obtain, update and review the patients current medications (includes all prescriptions, OTC, herbals, cannabis, and nutritional supplements).: Yes
[2024-07-06] MEDS: MAGNESIUM SULF 2 GM/WATER 50ML 2 GM/50 ML BAG IVPB (09:36)
[2024-07-06] MEDS: ASPIRIN 325 MG TABLET FEED TUBE (09:36)
[2024-07-06] MEDS: MEMANTINE 5 MG TABLET FEED TUBE (09:36)
[2024-07-06] MEDS: PANTOPRAZOLE SODIUM IV 40 MG VIAL IV PUSH (09:36)
[2024-07-06] MEDS: ENOXAPARIN 40 MG/0.4 ML SYRINGE SUB-Q (09:37)
[2024-07-06] MEDS: POTASSIUM BICARBONATE 25 MEQ TABEF 50 MEQ PO (09:50)
--- NOTE | 2024-07-06 10:01 | ECG_ITS ---
Test Date: 2024-07-06 10:01:35 Measurements Intervals [place] Rate: 120 P: 0 NV: 0 QRS: -22 QRSD: 73 T: -18 QT: 284 QTc: 402 Interpretive Statements ATRIAL FIBRILLATION WITH RAPID VENTRICULAR RESPONSE Poor R wave progression WARNING: DATA QUALITY MAY AFFECT INTERPRETATION Compared to ECG 07/05/2024 23:28:21 Sinus tachycardia no longer present Poor R-wave progression no longer present Electronically Signed On 07-07-2024 21:23:42 SPECIAL EDUCATION PROFESSIONAL by Eagle Linares M.D.
[2024-07-06 10:24] LABS: Alveolar/Arterial O2 Gradient 121.4 mmHg; Base Excess ABG -2.8 mEq/l (+/-2.0); Fractional Inspired Oxygen 30 %; HCO3 ABG 21.1 mEq/l (22.0-26.0); Oxygen Content ABG 13.7 %vol (16.0-22.0); Oxygen Saturation ABG 88.2 % (95.0-100.0); PCO2 ABG 33.7 mmHg (35.0-45.0); PO2 ABG 52.9 mmHg (80.0-100.0); PO2 FiO2 Ratio Arterial Blood 1.76 %; Total Hemoglobin 11.1 g/dL (12.0-18.0); pH ABG 7.415 (7.350-7.450)
[2024-07-06 10:26] LABS: Device VENTILATOR; Oxyhemoglobin 87.5 % THb (90.0-100.0); Site Drawn LEFT RADIAL
[2024-07-06 10:27] LABS: Arterial Blood Gas PEEP 5 cmH2O; Arterial Blood Gas Pressure Support 5 cmH2O; Arterial Blood Gas Vent Mode SPONTANEOUS
[2024-07-06] MEDS: LACTATED RINGERS 1,000 ML 100 ML IV CONT (11:25)
[2024-07-06] MEDS: AMIODARONE 150 MG/D5W 100 ML 150 MG/100 ML BAG 600 MG IV CONT (11:26)
[2024-07-06] MEDS: AMIODARONE 360 MG/D5W 200 ML 360 MG/200 ML BAG 33.33 MG IV CONT (11:27)
[2024-07-06 11:52] LABS: Glucose Point of Care 103 mg/dl (65-105)
[2024-07-06] MEDS: IPRATROPIUM 0.5 MG/ALBUTEROL SULFATE 2.5 MG AMPUL.NEB 3 ML INHALATION ×3 (12:01→21:05)
--- NOTE | 2024-07-06 12:04 | P.PNCA_ITS ---
Progress Note: A&P Assessment and Plan (1) Elevated troponin: Code(s): R79.89 - Other specified abnormal findings of blood chemistry Status: Acute (2) Hyperlipidemia: Code(s): E78.5 - Hyperlipidemia, unspecified Status: Acute (3) Essential hypertension: Code(s): I10 - Essential (primary) hypertension Status: Acute Plan Elevated troponin- unable to elicit symptoms of chest pain as patient is intubated; thus, cannot completely rule out type I NSTEMI Back pain Acute hypoxic respiratory failure s/p intubated and sedated secondary to pneumonia; CT chest showed pneumonia Hypokalemia- K of 3.3 today, being replaced Hypomagnesemia Sepsis secondary to UTI and pneumonia- on broad-spectrum antibiotics Septic shock requiring levophed DM HTN Hyperlipidemia Plan: -I discussed with the ICU attending, Dr. Pardo. Given patient had no complaints of chest pain prior to admission, the rise in troponin is most likely type 2 HI with supply demand mismatch due to stress of acute illness. Troponin has peaked and is now downtrending. EKG is sinus rhythm with possible old anterior infarction and no new ischemic changes. Recommend continuing medical management with aspirin, statin. Once patient recovers from her acute illness, recommend further coronary evaluation with an outpatient stress test or cardiac catheterization -Monitor on telemetry for any arrhythmias -TTE today to evaluate LVEF and RWMA. If there are any regional wall motion abnormalities noted on echo, then initiate heparin drip for 48 hours -No BB or other blood pressure lowering meds given hypotension -Check and replace electrolytes as needed keeping K>4 and Mg>2 -Management of non cardiac medical problems per primary ICU team Subjective Date/time seen: 07/06/24 12:04 Interval history: Reason for encounter: Elevated troponin Relevant history: 73-year-old female with history of AFib, hypertension, hyperlipidemia, iron deficiency anemia, diabetes mellitus, hypothyroidism, breast cancer, and MGUS present to the hospital with fever 102.4 and shortness of breath. She was intubated emergently in the ED for respiratory failure. Per patient's , patient was complaining of severe back pain but was able to cook, clean, do laundry, and she even up and down stairs the day prior to admission. She had emesis on the morning of admission and was having trouble breathing. EMS was called. Per EMS patient's SpO2 was 70% and she was placed on non-rebreather. In the ER patient was on 15 L non-rebreather with SpO2 in the low 90s and respiratory rate of 40 for which she was emergently intubated. Labs showed a potassium of 2.9, lactic acid of 3.5, magnesium 1.5, and troponin of 0.747, then 2.2. EKG showed sinus tachycardia with occasional PVCs, T-wave abnormality, heart rate 117, QTC 611. UA was negative for nitrates but had 1+ leukocyte esterase. Influenza A B, COVID, and RSV were negative. Blood cultures were drawn and pending. In the ED the patient was given IV Flagyl, vancomycin, 2 g magnesium, 20 millimoles of potassium phosphate. Patient was hypotensive after bolus of IV fluids were administered and she was started on levophed. Cardiology was consulted given elevated troponin. Interval history: Troponin increased to 2.2, 2.9 and peaked at 3.1 and is now down trending to 2.8. Patient is intubated and unable to elicit any history from her. Tele shows sinus rhythm. Review of Systems Review of Systems: A complete review of systems was not performed due to patient being intubated. Exam Narrative: General: Intubated and sedated, ETT in place Neck: Supple, unable to assess JVD is patient is flat Chest: Bilaterally clear to auscultation, no rales or rhonchi Cardiac: S1, S2 +, regular rate, regular rhythm, no murmurs or rubs Extremities: Bilateral lower extremity edema 1+, no skin rash Neurologic: Intubated and sedated Objective Data Vital Signs Vital Signs: Vital Signs - 24 hr 07/05/24 12:55 07/05/24 13:40 07/05/24 13:50 Temperature Pulse Rate 120 H 118 H 122 H Respiratory Rate 18 18 Blood Pressure Pulse Oximetry 94 Oxygen Delivery Mechanical Ventilation Oxygen Flow Rate Fraction of Inspired Oxygen 50 07/05/24 13:51 07/05/24 13:54 07/05/24 14:17 Temperature Pulse Rate 117 H 118 H Respiratory Rate 18 Blood Pressure Pulse Oximetry 93 Oxygen Delivery Mechanical Ventilation Oxygen Flow Rate Fraction of Inspired Oxygen 50 07/05/24 14:28 07/05/24 15:26 07/05/24 15:27 Temperature 38.6 C H Pulse Rate 116 H 108 H 107 H Respiratory Rate 18 18 18 Blood Pressure 106/49 L Pulse Oximetry 92 Oxygen Delivery Oxygen Flow Rate Fraction of Inspired Oxygen 07/05/24 15:30 07/05/24 15:35 07/05/24 16:00 Temperature Pulse Rate 109 H 106 H 10 L Respiratory Rate Blood Pressure 87/42 L 79/45 L 117/54 L Pulse Oximetry Oxygen Delivery Oxygen Flow Rate Fraction of Inspired Oxygen 07/05/24 16:33 07/05/24 16:45 07/05/24 16:45 Temperature Pulse Rate 101 H 97 97 Respiratory Rate 18 18 Blood Pressure Pulse Oximetry 96 Oxygen Delivery Mechanical Ventilation Oxygen Flow Rate Fraction of Inspired Oxygen 50 07/05/24 16:45 07/05/24 16:45 07/05/24 16:45 Temperature 38.4 C H 38.4 C H Pulse Rate 97 97 Respiratory Rate 18 Blood Pressure 105/51 L 105/51 L Pulse Oximetry 94 Oxygen Delivery Oxygen Flow Rate Fraction of Inspired Oxygen 07/05/24 16:45 07/05/24 16:45 07/05/24 16:52 Temperature Pulse Rate Respiratory Rate Blood Pressure Pulse Oximetry 94 Oxygen Delivery Mechanical Ventilation Oxygen Flow Rate Fraction of Inspired Oxygen 50 50 50 07/05/24 16:54 07/05/24 18:00 07/05/24 18:00 Temperature 38.4 C H Pulse Rate 88 97 97 Respiratory Rate 20 18 18 Blood Pressure 105/51 L Pulse Oximetry 93 Oxygen Delivery Oxygen Flow Rate Fraction of Inspired Oxygen 07/05/24 18:00 07/05/24 18:00 07/05/24 18:00 Temperature 38.3 C H Pulse Rate 97 98 97 Respiratory Rate 20 Blood Pressure 104/53 L 111/55 L Pulse Oximetry 96 Oxygen Delivery Oxygen Flow Rate Fraction of Inspired Oxygen 07/05/24 19:44 07/05/24 20:00 07/05/24 20:00 Temperature Pulse Rate 95 97 97 Respiratory Rate 18 18 Blood Pressure Pulse Oximetry 98 Oxygen Delivery Mechanical Ventilation Oxygen Flow Rate Fraction of Inspired Oxygen 50 07/05/24 20:00 07/05/24 20:00 07/05/24 20:00 Temperature Pulse Rate 97 97 Respiratory Rate Blood Pressure 114/56 L Pulse Oximetry 95 Oxygen Delivery Mechanical Ventilation Oxygen Flow Rate Fraction of Inspired Oxygen 40 07/05/24 20:00 07/05/24 20:24 07/05/24 20:35 Temperature 38.2 C H Pulse Rate 95 Respiratory Rate 24 H Blood Pressure 114/56 L Pulse Oximetry 95 94 Oxygen Delivery Mechanical Ventilation Oxygen Flow Rate Fraction of Inspired Oxygen 40 40 07/05/24 22:00 07/05/24 22:00 07/05/24 22:00 Temperature Pulse Rate 104 H 104 H 104 H Respiratory Rate 19 19 Blood Pressure 112/56 L Pulse Oximetry Oxygen Delivery Oxygen Flow Rate Fraction of Inspired Oxygen 07/05/24 22:00 07/05/24 22:12 07/05/24 22:57 Temperature 38.4 C H Pulse Rate 105 H 101 H 103 H Respiratory Rate 24 H Blood Pressure 112/56 L Pulse Oximetry 95 96 Oxygen Delivery Mechanical Ventilation Oxygen Flow Rate Fraction of Inspired Oxygen 40 07/06/24 00:00 07/06/24 00:00 07/06/24 00:00 Temperature Pulse Rate 103 H 103 H 103 H Respiratory Rate 18 18 Blood Pressure 104/53 L Pulse Oximetry Oxygen Delivery Oxygen Flow Rate Fraction of Inspired Oxygen 07/06/24 00:00 07/06/24 00:00 07/06/24 00:00 Temperature Pulse Rate 100 Respiratory Rate Blood Pressure Pulse Oximetry 97 Oxygen Delivery Mechanical Ventilation Oxygen Flow Rate Fraction of Inspired Oxygen 40 40 07/06/24 00:18 07/06/24 01:56 07/06/24 02:00 Temperature 38.5 C H Pulse Rate 102 H 97 97 Respiratory Rate 24 H 18 Blood Pressure 104/53 L Pulse Oximetry 96 99 Oxygen Delivery Mechanical Ventilation Oxygen Flow Rate Fraction of Inspired Oxygen 40 07/06/24 02:00 07/06/24 02:00 07/06/24 02:00 Temperature Pulse Rate 97 97 97 Respiratory Rate 18 Blood Pressure 110/48 L Pulse Oximetry Oxygen Delivery Oxygen Flow Rate Fraction of Inspired Oxygen 07/06/24 02:00 07/06/24 02:19 07/06/24 04:00 Temperature 38.5 C H Pulse Rate 97 101 H Respiratory Rate 18 18 Blood Pressure 110/48 L Pulse Oximetry 98 97 Oxygen Delivery Mechanical Ventilation Oxygen Flow Rate Fraction of Inspired Oxygen 30 07/06/24 04:00 07/06/24 04:00 07/06/24 04:00 Temperature Pulse Rate 101 H 101 H 97 Respiratory Rate 18 Blood Pressure 112/52 L Pulse Oximetry Oxygen Delivery Oxygen Flow Rate Fraction of Inspired Oxygen 07/06/24 04:00 07/06/24 04:00 07/06/24 04:11 Temperature 38.2 C H Pulse Rate 103 H Respiratory Rate 24 H Blood Pressure 112/52 L Pulse Oximetry 96 96 Oxygen Delivery Mechanical Ventilation Oxygen Flow Rate Fraction of Inspired Oxygen 30 30 07/06/24 06:00 07/06/24 06:00 07/06/24 06:00 Temperature Pulse Rate 95 95 95 Respiratory Rate 18 18 Blood Pressure 121/48 L Pulse Oximetry Oxygen Delivery Oxygen Flow Rate Fraction of Inspired Oxygen 07/06/24 06:00 07/06/24 06:08 07/06/24 07:15 Temperature Pulse Rate 95 95 91 Respiratory Rate 24 H Blood Pressure 121/48 L 113/52 L Pulse Oximetry 97 Oxygen Delivery Oxygen Flow Rate Fraction of Inspired Oxygen 07/06/24 07:57 07/06/24 08:00 07/06/24 08:00 Temperature Pulse Rate 89 91 91 Respiratory Rate 18 18 Blood Pressure Pulse Oximetry 99 Oxygen Delivery Mechanical Ventilation Oxygen Flow Rate Fraction of Inspired Oxygen 30 07/06/24 08:00 07/06/24 08:00 07/06/24 08:00 Temperature Pulse Rate 91 Respiratory Rate Blood Pressure 113/50 L Pulse Oximetry 94 Oxygen Delivery Mechanical Ventilation Oxygen Flow Rate Fraction of Inspired Oxygen 30 30 07/06/24 08:00 07/06/24 08:45 07/06/24 08:45 Temperature 38.2 C H Pulse Rate 88 95 95 Respiratory Rate 18 18 Blood Pressure 113/50 L 110/54 L Pulse Oximetry 98 Oxygen Delivery Oxygen Flow Rate Fraction of Inspired Oxygen 07/06/24 08:45 07/06/24 09:17 07/06/24 09:20 Temperature Pulse Rate 95 123 H Respiratory Rate 18 Blood Pressure Pulse Oximetry 94 Oxygen Delivery Mechanical Ventilation Oxygen Flow Rate Fraction of Inspired Oxygen 30 30 07/06/24 09:25 07/06/24 09:30 07/06/24 10:00 Temperature Pulse Rate 118 H 118 H 127 H Respiratory Rate 21 H Blood Pressure 95/63 L 115/51 L Pulse Oximetry Oxygen Delivery Oxygen Flow Rate Fraction of Inspired Oxygen 07/06/24 10:00 07/06/24 10:00 07/06/24 11:00 Temperature Pulse Rate 120 H 120 H 122 H Respiratory Rate 21 H Blood Pressure 127/63 113/58 L Pulse Oximetry Oxygen Delivery Oxygen Flow Rate Fraction of Inspired Oxygen 07/06/24 11:15 07/06/24 11:26 07/06/24 11:27 Temperature Pulse Rate 124 H 120 H Respiratory Rate Blood Pressure 107/53 L 113/58 L Pulse Oximetry 97 Oxygen Delivery Nasal Cannula Oxygen Flow Rate 2 Fraction of Inspired Oxygen Intake/Output Intake/Output: Intake & Output 07/03/24 07/04/24 07/05/24 07/06/24 23:59 23:59 23:59 23:59 Intake Total 1847.8667 1583.6 Output Total 900 700 Balance 947.8667 883.6 Meds/Results Medications: Active Medications Generic Name Dose Route Start Last Admin Trade Name Freq PRN Reason Stop Dose Admin Acetaminophen 650 mg 07/05/24 11:14 Acetaminophen 650 Mg Suppository RECTAL Q6H PRN Mild Pain (1-3) or Fever Albuterol/Ipratropium 3 ml 07/06/24 11:58 07/06/24 12:01 Ipratropium 0.5 Mg/Albuterol Sulfate 2.5 Mg Ampul.Neb 3 Ml INHALATION 07/06/24 11:59 3 ml ONCE STA Administration Albuterol/Ipratropium 3 ml 07/06/24 14:00 Ipratropium 0.5 Mg/Albuterol Sulfate 2.5 Mg Ampul.Neb 3 Ml INHALATION Q6HRT [facility] Aspirin 325 mg 07/06/24 08:35 07/06/24 09:36 Aspirin 325 Mg Tablet FEED TUBE 325 mg DAILY@0800 SHAKILA Administration Dextrose 12.5 gm 07/05/24 17:16 Dextrose 50% 25 Gm/50 Ml Syringe IV PUSH PRN PRN Hypoglycemia Protocol Enoxaparin Sodium 60 mg 07/06/24 21:00 Enoxaparin 60 Mg/0.6 Ml Syringe SUB-Q Q12HR SHAKILA Glucagon 1 mg 07/05/24 17:16 Glucagon For Inj 1 Mg Vial IM PRN PRN Hypoglycemia Protocol Glucose 15 gm 07/05/24 17:16 Glucose Oral Gel 15 Gm Of Glucse In 37.5 Gm Tube PO PRN PRN Hypoglycemia Protocol Dextrose 1,000 mls @ 100 mls/hr 07/05/24 17:16 Dextrose 5% 1,000 Ml IVPB PRN PRN Hypoglycemia Protocol Albumin Human 100 mls @ 60 mls/hr 07/06/24 00:00 07/06/24 11:36 Albutein IVPB 07/07/24 23:59 60 mls/hr Q6HR SHKAILA Administration Cefepime HCl 2 gm in 50 mls @ 100 mls/hr 07/06/24 00:00 07/06/24 11:32 Maxipime 2 Gm/Ns 50 Ml IVPB 100 mls/hr Q12H SHAKILA Administration Metronidazole 500 mg in 100 mls @ 100 mls/hr 07/05/24 22:00 07/06/24 06:09 Flagyl 500 Mg/Iso Soln 100 Ml IVPB 100 mls/hr Q8HR SHAKILA Administration Amiodarone HCl/Dextrose 360 mg in 200 mls @ 33.333 mls/hr 07/06/24 10:50 07/06/24 11:27 Nexterone 360 Mg/D5w 200 Ml IV CONT 07/06/24 16:49 1 mg/min .Q6H ONE 33.33 mls/hr Administration 1 MG/MIN Amiodarone HCl/Dextrose 360 mg in 200 mls @ 16.667 mls/hr 07/06/24 16:50 Nexterone 360 Mg/D5w 200 Ml IV CONT .Q12H SHAKILA 0.5 MG/MIN Insulin Aspart 2 - 5 units 07/05/24 18:00 07/06/24 11:47 Insulin Aspart (*Bkc) 100 Units/Ml SUB-Q Not Given Q6HR SHAKILA Protocol Levothyroxine Sodium 100 mcg 07/06/24 06:30 07/06/24 06:09 Levothyroxine Sodium 100 Mcg Tablet FEED TUBE 100 mcg DAILY@0630 SHAKILA Administration Memantine 5 mg 07/06/24 09:00 07/06/24 09:36 Memantine 5 Mg Tablet FEED TUBE 5 mg Q12HR SHAKILA Administration Pantoprazole Sodium 40 mg 07/06/24 09:00 07/06/24 09:36 Pantoprazole Sodium Iv 40 Mg Vial IV PUSH 40 mg QAM SHAKILA Administration Perflutren Lipid Microsphere 0 ml 07/06/24 08:31 Perflutren Lipid Microspheres 1.5 Ml Vial Diluted To 10 Ml Total Volume IV PUSH 07/09/24 08:31 ONCE PRN adequate visualization Protocol Potassium Bicarbonate 25 meq 07/06/24 13:00 Potassium Bicarbonate 25 Meq Tabef PO 07/06/24 13:01 ONCE ONE Rosuvastatin Calcium 40 mg 07/06/24 21:00 Rosuvastatin 20 Mg Tablet FEED TUBE [facility] Radiology Results: ITS Impressions Abdomen X-Ray 07/05/24 11:55 IMPRESSION: 1. Endotracheal tube and nasogastric tube in expected positions. 2. Mild opacities in the left mid to lower lung zone which could represent atelectasis or pneumonia. 2. Nonspecific bowel gas pattern without frankly dilated bowel to suggest obstruction. Head CT 07/05/24 12:59 IMPRESSION: 1. Normal aging brain. No acute intracranial process. Chest/Abdomen/Pelvis CT 07/05/24 13:11 IMPRESSION: 1. Bilateral lower lobe pneumonia with additional small amount of pneumonia in the lingula. 2. No acute intra-abdominal/pelvic process. Chest X-Ray 07/06/24 07:14 Impression: Support tubes, as above. Bibasilar atelectasis and possible minimal central congestive change, as above. Labs Labs: Laboratory Results - last 24 hr 07/05/24 07/05/24 07/05/24 12:08 12:10 12:10 WBC 5.7 RBC 4.30 Hgb 12.2 Hct 39.4 MCV 91.6 MCH 28.4 MCHC 31.0 L RDW 15.9 H Plt Count 194 MPV 10.8 H Immature Gran % (Auto) 0.4 Neut % (Auto) 91.4 H Lymph % (Auto) 5.1 L [place] % (Auto) 1.6 L Eos % (Auto) 1.1 Baso % (Auto) 0.4 Lymph # (Auto) 0.29 L [place] # (Auto) 0.1 Eos # (Auto) 0.1 Baso # (Auto) 0.0 Abs Immat Gran (auto) 0.02 Absolute Neuts (auto) 5.2 Absolute Nucleated RBC 0.000 Total Counted Neutrophils % (Manual) Band Neutrophils % Lymphocytes % (Manual) Monocytes % (Manual) Eosinophils % (Manual) Basophils % (Manual) Nucleated RBC % 0.0 Abs Neuts (Manual) Abs Lymphs (Manual) Abs Monocytes (Manual) Absolute Eos (Manual) Abs Basophils (Manual) Platelet Estimate Anisocytosis Schistocytes PT 15.5 H INR 1.2 APTT 26.0 Puncture Site ABG pH ABG pCO2 ABG pO2 ABG PO2/FiO2 Ratio ABG HCO3 ABG O2 Saturation ABG O2 Content ABG Base Excess A-a Gradient Oxyhemoglobin Carboxyhemoglobin Methemoglobin Reduced Hemoglobin Total Hemoglobin O2 Delivery Device O2 Liters/Min Minute Volume Vent Rate Vent Mode FiO2 Tidal Volume PEEP Peak Inspir Pressure Pressure Support Sodium 149 H Potassium 2.9 L Chloride 107 Carbon Dioxide 22 Anion Gap 20 H BUN 22 H Creatinine 0.87 Cancelled Estim Creat Clear Calc Not Reportable Estimated GFR Glucose POC Capillary Glucose 178 H Lactic Acid Calcium Phosphorus Magnesium Total Bilirubin AST ALT Alkaline Phosphatase Troponin I NT-Pro-B Natriuret Pep Total Protein Albumin Lipase TSH (Reflex) Urine Color Urine Appearance Urine pH Ur Specific [place] Urine Protein Urine Glucose (UA) Urine Ketones Ur Blood (Man) Urine Nitrate Urine Bilirubin Urine Urobilinogen Leukocyte Esterase Rfl Urine RBC Urine WBC Ur Squamous Epith Cells Urine Bacteria Urine Casts Nasal MRSA (PCR) Influenza A (RT-PCR) Influenza B (RT-PCR) RSV (RT-PCR) SARS-CoV-2 RNA (RT-PCR) 07/05/24 07/05/24 07/05/24 12:10 12:10 12:22 WBC RBC Hgb Hct MCV MCH MCHC RDW Plt Count MPV Immature Gran % (Auto) Neut % (Auto) Lymph % (Auto) [place] % (Auto) Eos % (Auto) Baso % (Auto) Lymph # (Auto) [place] # (Auto) Eos # (Auto) Baso # (Auto) Abs Immat Gran (auto) Absolute Neuts (auto) Absolute Nucleated RBC Total Counted Neutrophils % (Manual) Band Neutrophils % Lymphocytes % (Manual) Monocytes % (Manual) Eosinophils % (Manual) Basophils % (Manual) Nucleated RBC % Abs Neuts (Manual) Abs Lymphs (Manual) Abs Monocytes (Manual) Absolute Eos (Manual) Abs Basophils (Manual) Platelet Estimate Anisocytosis Schistocytes PT INR APTT Puncture Site ABG pH ABG pCO2 ABG pO2 ABG PO2/FiO2 Ratio ABG HCO3 ABG O2 Saturation ABG O2 Content ABG Base Excess A-a Gradient Oxyhemoglobin Carboxyhemoglobin Methemoglobin Reduced Hemoglobin Total Hemoglobin O2 Delivery Device O2 Liters/Min Minute Volume Vent Rate Vent Mode FiO2 Tidal Volume PEEP Peak Inspir Pressure Pressure Support Sodium Potassium Chloride Carbon Dioxide Anion Gap BUN Creatinine Estim Creat Clear Calc Cancelled Estimated GFR > 60 Cancelled Glucose 165 H POC Capillary Glucose Lactic Acid 3.5 H Calcium 8.1 L Phosphorus 1.7 L Magnesium 1.5 L Total Bilirubin 1.1 AST 125 H ALT 35 Alkaline Phosphatase 162 H Troponin I 0.747 H* NT-Pro-B Natriuret Pep 254 H Total Protein 6.0 L Albumin 3.4 L Lipase 76 TSH (Reflex) 1.130 Urine Color Yellow Urine Appearance Cloudy H Urine pH 6.5 Ur Specific [place] 1.016 Urine Protein 1+ H Urine Glucose (UA) Trace H Urine Ketones Negative Ur Blood (Man) Negative Urine Nitrate Negative Urine Bilirubin Negative Urine Urobilinogen 1.0 Leukocyte Esterase Rfl 1+ H Urine RBC 0-2 Urine WBC 21-50 H Ur Squamous Epith Cells None seen Urine Bacteria 4+ Urine Casts 0-2 Nasal MRSA (PCR) Influenza A (RT-PCR) Influenza B (RT-PCR) RSV (RT-PCR) SARS-CoV-2 RNA (RT-PCR) 07/05/24 07/05/24 07/05/24 12:36 12:54 14:07 WBC RBC Hgb Hct MCV MCH MCHC RDW Plt Count MPV Immature Gran % (Auto) Neut % (Auto) Lymph % (Auto) [place] % (Auto) Eos % (Auto) Baso % (Auto) Lymph # (Auto) [place] # (Auto) Eos # (Auto) Baso # (Auto) Abs Immat Gran (auto) Absolute Neuts (auto) Absolute Nucleated RBC Total Counted Neutrophils % (Manual) Band Neutrophils % Lymphocytes % (Manual) Monocytes % (Manual) Eosinophils % (Manual) Basophils % (Manual) Nucleated RBC % Abs Neuts (Manual) Abs Lymphs (Manual) Abs Monocytes (Manual) Absolute Eos (Manual) Abs Basophils (Manual) Platelet Estimate Anisocytosis Schistocytes PT INR APTT Puncture Site ABG pH ABG pCO2 ABG pO2 ABG PO2/FiO2 Ratio ABG HCO3 ABG O2 Saturation ABG O2 Content ABG Base Excess A-a Gradient Oxyhemoglobin Carboxyhemoglobin Methemoglobin Reduced Hemoglobin Total Hemoglobin O2 Delivery Device O2 Liters/Min Minute Volume Vent Rate Vent Mode FiO2 Tidal Volume PEEP Peak Inspir Pressure Pressure Support Sodium Potassium Chloride Carbon Dioxide Anion Gap BUN Creatinine 1.00 Estim Creat Clear Calc 38 Estimated GFR 55 L Glucose POC Capillary Glucose Lactic Acid Calcium Phosphorus Magnesium Total Bilirubin AST ALT Alkaline Phosphatase Troponin I 2.270 H* D NT-Pro-B Natriuret Pep Total Protein Albumin Lipase TSH (Reflex) Urine Color Urine Appearance Urine pH Ur Specific [place] Urine Protein Urine Glucose (UA) Urine Ketones Ur Blood (Man) Urine Nitrate Urine Bilirubin Urine Urobilinogen Leukocyte Esterase Rfl Urine RBC Urine WBC Ur Squamous Epith Cells Urine Bacteria Urine Casts Nasal MRSA (PCR) Influenza A (RT-PCR) Negative Influenza B (RT-PCR) Negative RSV (RT-PCR) Negative SARS-CoV-2 RNA (RT-PCR) Negative 07/05/24 07/05/24 07/05/24 14:50 15:49 17:22 WBC RBC Hgb Hct MCV MCH MCHC RDW Plt Count MPV Immature Gran % (Auto) Neut % (Auto) Lymph % (Auto) [place] % (Auto) Eos % (Auto) Baso % (Auto) Lymph # (Auto) [place] # (Auto) Eos # (Auto) Baso # (Auto) Abs Immat Gran (auto) Absolute Neuts (auto) Absolute Nucleated RBC Total Counted Neutrophils % (Manual) Band Neutrophils % Lymphocytes % (Manual) Monocytes % (Manual) Eosinophils % (Manual) Basophils % (Manual) Nucleated RBC % Abs Neuts (Manual) Abs Lymphs (Manual) Abs Monocytes (Manual) Absolute Eos (Manual) Abs Basophils (Manual) Platelet Estimate Anisocytosis Schistocytes PT INR APTT Puncture Site ABG pH ABG pCO2 ABG pO2 ABG PO2/FiO2 Ratio ABG HCO3 ABG O2 Saturation ABG O2 Content ABG Base Excess A-a Gradient Oxyhemoglobin Carboxyhemoglobin Methemoglobin Reduced Hemoglobin Total Hemoglobin O2 Delivery Device O2 Liters/Min Minute Volume Vent Rate Vent Mode FiO2 Tidal Volume PEEP Peak Inspir Pressure Pressure Support Sodium 138 Potassium 3.0 L Chloride 111 H Carbon Dioxide 21 L Anion Gap 6 BUN 22 H Creatinine 0.85 Estim Creat Clear Calc 44 Estimated GFR > 60 Glucose 138 H POC Capillary Glucose Lactic Acid 3.0 H Calcium 7.4 L Phosphorus 1.6 L Magnesium 2.0 Total Bilirubin 1.0 AST 101 H ALT 29 Alkaline Phosphatase 119 Troponin I 2.950 H* D NT-Pro-B Natriuret Pep Total Protein 5.0 L Albumin 2.7 L Lipase TSH (Reflex) Urine Color Urine Appearance Urine pH Ur Specific [place] Urine Protein Urine Glucose (UA) Urine Ketones Ur Blood (Man) Urine Nitrate Urine Bilirubin Urine Urobilinogen Leukocyte Esterase Rfl Urine RBC Urine WBC Ur Squamous Epith Cells Urine Bacteria Urine Casts Nasal MRSA (PCR) Not detected Influenza A (RT-PCR) Influenza B (RT-PCR) RSV (RT-PCR) SARS-CoV-2 RNA (RT-PCR) 07/05/24 07/05/24 07/06/24 17:36 23:45 01:04 WBC RBC Hgb Hct MCV MCH MCHC RDW Plt Count MPV Immature Gran % (Auto) Neut % (Auto) Lymph % (Auto) [place] % (Auto) Eos % (Auto) Baso % (Auto) Lymph # (Auto) [place] # (Auto) Eos # (Auto) Baso # (Auto) Abs Immat Gran (auto) Absolute Neuts (auto) Absolute Nucleated RBC Total Counted Neutrophils % (Manual) Band Neutrophils % Lymphocytes % (Manual) Monocytes % (Manual) Eosinophils % (Manual) Basophils % (Manual) Nucleated RBC % Abs Neuts (Manual) Abs Lymphs (Manual) Abs Monocytes (Manual) Absolute Eos (Manual) Abs Basophils (Manual) Platelet Estimate Anisocytosis Schistocytes PT INR APTT Puncture Site ABG pH ABG pCO2 ABG pO2 ABG PO2/FiO2 Ratio ABG HCO3 ABG O2 Saturation ABG O2 Content ABG Base Excess A-a Gradient Oxyhemoglobin Carboxyhemoglobin Methemoglobin Reduced Hemoglobin Total Hemoglobin O2 Delivery Device O2 Liters/Min Minute Volume Vent Rate Vent Mode FiO2 Tidal Volume PEEP Peak Inspir Pressure Pressure Support Sodium Potassium Chloride Carbon Dioxide Anion Gap BUN Creatinine Estim Creat Clear Calc Estimated GFR Glucose POC Capillary Glucose 142 H 83 Lactic Acid Calcium Phosphorus Magnesium Total Bilirubin AST ALT Alkaline Phosphatase Troponin I 3.100 H* NT-Pro-B Natriuret Pep Total Protein Albumin Lipase TSH (Reflex) Urine Color Urine Appearance Urine pH Ur Specific [place] Urine Protein Urine Glucose (UA) Urine Ketones Ur Blood (Man) Urine Nitrate Urine Bilirubin Urine Urobilinogen Leukocyte Esterase Rfl Urine RBC Urine WBC Ur Squamous Epith Cells Urine Bacteria Urine Casts Nasal MRSA (PCR) Influenza A (RT-PCR) Influenza B (RT-PCR) RSV (RT-PCR) SARS-CoV-2 RNA (RT-PCR) 07/06/24 07/06/24 07/06/24 05:09 06:06 10:21 WBC 16.6 H RBC 3.50 L Hgb 10.3 L Hct 32.2 L MCV 92.0 MCH 29.4 MCHC 32.0 RDW 16.8 H Plt Count 185 MPV 10.6 H Immature Gran % (Auto) Not Reportable Neut % (Auto) Not Reportable Lymph % (Auto) Not Reportable [place] % (Auto) Not Reportable Eos % (Auto) Not Reportable Baso % (Auto) Not Reportable Lymph # (Auto) Not Reportable [place] # (Auto) Not Reportable Eos # (Auto) Not Reportable Baso # (Auto) Not Reportable Abs Immat Gran (auto) Not Reportable Absolute Neuts (auto) Not Reportable Absolute Nucleated RBC Not Reportable Total Counted 100 Neutrophils % (Manual) 74 H Band Neutrophils % 14 H Lymphocytes % (Manual) 9 L Monocytes % (Manual) 1 L Eosinophils % (Manual) 1 Basophils % (Manual) 1 Nucleated RBC % Not Reportable Abs Neuts (Manual) 14.60 H Abs Lymphs (Manual) 1.49 Abs Monocytes (Manual) 0.16 Absolute Eos (Manual) 0.16 Abs Basophils (Manual) 0.16 H Platelet Estimate Adequate Anisocytosis 1+ Schistocytes None seen PT INR APTT Puncture Site Left radial Left radial ABG pH 7.417 7.415 ABG pCO2 33.7 L 33.7 L ABG pO2 61.6 L 52.9 L ABG PO2/FiO2 Ratio 2.05 1.76 ABG HCO3 21.2 L 21.1 L ABG O2 Saturation 92.2 L 88.2 L ABG O2 Content 14.8 L 13.7 L ABG Base Excess -2.7 -2.8 A-a Gradient 112.7 121.4 Oxyhemoglobin 91.4 87.5 L* Carboxyhemoglobin 0.7 Methemoglobin 0.3 Reduced Hemoglobin 7.6 H Total Hemoglobin 11.5 L 11.1 L O2 Delivery Device Ventilator Ventilator O2 Liters/Min Not Reportable Not Reportable Minute Volume Not Reportable Not Reportable Vent Rate 18 Not Reportable Vent Mode Cmv Spontaneous FiO2 30 30 Tidal Volume 420 Not Reportable PEEP 5 5 Peak Inspir Pressure Not Reportable Not Reportable Pressure Support Not Reportable 5 Sodium 139 Potassium 3.3 L Chloride 110 H Carbon Dioxide 21 L Anion Gap 8 BUN 24 H Creatinine 0.79 Estim Creat Clear Calc 47 Estimated GFR > 60 Glucose 91 POC Capillary Glucose Lactic Acid 1.7 Calcium 8.1 L Phosphorus 4.1 Magnesium 1.7 Total Bilirubin 1.3 AST 59 H ALT 23 Alkaline Phosphatase 74 Troponin I 2.810 H* NT-Pro-B Natriuret Pep Total Protein 6.0 L Albumin 3.0 L Lipase TSH (Reflex) Urine Color Urine Appearance Urine pH Ur Specific [place] Urine Protein Urine Glucose (UA) Urine Ketones Ur Blood (Man) Urine Nitrate Urine Bilirubin Urine Urobilinogen Leukocyte Esterase Rfl Urine RBC Urine WBC Ur Squamous Epith Cells Urine Bacteria Urine Casts Nasal MRSA (PCR) Influenza A (RT-PCR) Influenza B (RT-PCR) RSV (RT-PCR) SARS-CoV-2 RNA (RT-PCR) 07/06/24 11:46 WBC RBC Hgb Hct MCV MCH MCHC RDW Plt Count MPV Immature Gran % (Auto) Neut % (Auto) Lymph % (Auto) [place] % (Auto) Eos % (Auto) Baso % (Auto) Lymph # (Auto) [place] # (Auto) Eos # (Auto) Baso # (Auto) Abs Immat Gran (auto) Absolute Neuts (auto) Absolute Nucleated RBC Total Counted Neutrophils % (Manual) Band Neutrophils % Lymphocytes % (Manual) Monocytes % (Manual) Eosinophils % (Manual) Basophils % (Manual) Nucleated RBC % Abs Neuts (Manual) Abs Lymphs (Manual) Abs Monocytes (Manual) Absolute Eos (Manual) Abs Basophils (Manual) Platelet Estimate Anisocytosis Schistocytes PT INR APTT Puncture Site ABG pH ABG pCO2 ABG pO2 ABG PO2/FiO2 Ratio ABG HCO3 ABG O2 Saturation ABG O2 Content ABG Base Excess A-a Gradient Oxyhemoglobin Carboxyhemoglobin Methemoglobin Reduced Hemoglobin Total Hemoglobin O2 Delivery Device O2 Liters/Min Minute Volume Vent Rate Vent Mode FiO2 Tidal Volume PEEP Peak Inspir Pressure Pressure Support Sodium Potassium Chloride Carbon Dioxide Anion Gap BUN Creatinine Estim Creat Clear Calc Estimated GFR Glucose POC Capillary Glucose 103 Lactic Acid Calcium Phosphorus Magnesium Total Bilirubin AST ALT Alkaline Phosphatase Troponin I NT-Pro-B Natriuret Pep Total Protein Albumin Lipase TSH (Reflex) Urine Color Urine Appearance Urine pH Ur Specific [place] Urine Protein Urine Glucose (UA) Urine Ketones Ur Blood (Man) Urine Nitrate Urine Bilirubin Urine Urobilinogen Leukocyte Esterase Rfl Urine RBC Urine WBC Ur Squamous Epith Cells Urine Bacteria Urine Casts Nasal MRSA (PCR) Influenza A (RT-PCR) Influenza B (RT-PCR) RSV (RT-PCR) SARS-CoV-2 RNA (RT-PCR)
[2024-07-06] MEDS: BISACODYL 10 MG SUPPOSITORY RECTAL (13:07)
[2024-07-06] MEDS: ACETAMINOPHEN 650 MG SUPPOSITORY RECTAL ×2 (13:55→20:27)
[2024-07-06] MEDS: AMIODARONE 360 MG/D5W 200 ML 360 MG/200 ML BAG 16.67 MG IV CONT (16:50)
[2024-07-06 17:25] LABS: Glucose Point of Care 132 mg/dl (65-105)
[2024-07-06] MEDS: ENOXAPARIN 60 MG/0.6 ML SYRINGE SUB-Q (20:28)
[2024-07-06] MEDS: TRIMETHOBENZAMIDE HCL 200 MG/2 ML VIAL IM (20:28)
[2024-07-07] VITALS (33 sets, daily range): BP systolic 104–149; BP diastolic 48–137; PULSE 85–107; RESP 14–36; TEMP 36.9–39; O2SAT 91–100
--- NOTE | 2024-07-07 | ECHO_ITS ---
Patient Info Name: Josephine Kong Age: 73 years : 1950 Gender: Female Ht: 63 in Wt: 136 lbs BSA: 1.67 m2 HR: 90 bpm BP: 132 / 64 mmHg Heart Rhythm: Sinus Rhythm Technical Quality: Good Exam Date: 07/07/2024 8:39 AM Exam Location: Echo Lab Patient Status: Inpatient Admit Date: 07/05/2024 Staff Ordering Physician: Dennis Pardo MD [place]: Donan Muniz RDCS Attending Provider: Rolo Brownlee MD Exam Type: CA echo doppler color flow Study Info Indications - elevated troponin Complete two-dimensional, color flow and Doppler transthoracic echocardiogram is performed. Summary 1. Complete two-dimensional, color flow and Doppler transthoracic echocardiogram is performed. 2. Left ventricular systolic function is normal, estimated at 50-55%. 3. The left ventricular diastolic function is grade II diastolic dysfunction. 4. There is mild aortic valve calcification. 5. There is mild mitral valve regurgitation. 6. There is mild mitral valve calcification. 7. There is trace tricuspid valve regurgitation. 8. No pulmonary hypertension, estimated pulmonary arterial systolic pressure is 26 mmHg. 9. There is mild pulmonic regurgitation. Left Ventricle Left ventricular chamber dimension is normal. Left ventricular systolic function is normal, estimated at 50-55%. There is no increased left ventricular wall thickness. Left ventricular septal wall motion is normal. The left ventricular diastolic function is grade II diastolic dysfunction. Right Ventricle Right ventricular chamber dimension is normal. Right ventricular systolic function is normal. Left Atria Left atrial chamber dimension is normal. Right Atria Right atrial chamber dimension is normal. Atrial Septum Intact interatrial septum visualized by color flow imaging. Aortic Valve The aortic valve is trileaflet. There is no aortic valve sclerosis. There is no aortic valve stenosis. There is no aortic valve regurgitation. There is mild aortic valve calcification. Pulmonic Valve The pulmonic valve is normal. There is no pulmonic valve stenosis. There is mild pulmonic regurgitation. Mitral Valve The mitral valve has normal leaflets. There is no mitral valve stenosis. There is mild mitral valve regurgitation. There is mild mitral valve calcification. Tricuspid Valve The tricuspid valve leaflets are normal. There is no significant tricuspid valve stenosis. There is trace tricuspid valve regurgitation. No pulmonary hypertension, estimated pulmonary arterial systolic pressure is 26 mmHg. Pericardium/Pleural The pericardium appears normal. There is no pericardial effusion. Inferior Vena Cava Normal inferior vena cava with <50% collapse upon inspiration consistent with Empty right atrial pressure, 10 mmHg. Aorta The aortic root size at the sinus of Valsalva is normal. The prox ascending aorta size is normal. Left Ventricular Outflow Tract Name Value Normal LVOT 2D LVOT Diameter 2.0 cm LVOT Doppler LVOT Peak Gradient 4 mmHg LVOT Mean Gradient 2 mmHg LVOT VTI 20 cm LVOT VTI/AV VTI Ratio 0.6 LVOT Stroke Volume 62 ml LVOT CO 5.4 l/min LVOT CI 3.2 l/min/m2 Pulmonic Valve Name Value Normal RVOT Doppler RVOT Peak Gradient 2 mmHg PV Doppler PV Peak Gradient 4 mmHg Mitral Valve Name Value Normal MV Doppler MV Decel [place] 603 cm/s2 MV PHT 50 ms MV Area (PHT) 4.4 cm2 4.0-5.0 MV Diastolic Function MV E Peak Velocity 103 cm/s MV A Peak Velocity 105 cm/s MV E/A 1.0 MV Decel Time 171 ms MV Annular TDI MV E/e' (Septal) 15.2 <=8.0 MV E/e' (Lateral) 11.6 <=8.0 MV E/e' (Average) 13.4 Tricuspid Valve Name Value Normal TV Regurgitation Doppler TR Peak Velocity 203 cm/s TR Peak Gradient 16 mmHg Estimated PAP/RSVP RA Pressure 10 mmHg <=5 PA Systolic Pressure 26 mmHg <36 RV Systolic Pressure 26 mmHg <36 Aorta Name Value Normal Ascending Aorta Ao Root Diameter (MM) 3.2 cm Ao Root Diam Index (MM) 1.9 cm/m2 Aortic Valve Name Value Normal AV Doppler AV Peak Velocity 157 cm/s AV Peak Gradient 10 mmHg AV Mean Gradient 5 mmHg AV VTI 32 cm AV Area (Cont Eq VTI) 1.9 cm2 >=3.0 AV Area (Cont Eq Noe) 1.9 cm2 AV Regurgitation 2D LVOT Area 3.1 cm2 Ventricles Name Value Normal LV Dimensions 2D/MM IVS Diastolic Thickness (2D) 0.8 cm 0.6-1.0 LVID Diastole (2D) 4.7 cm 3.8-5.2 LVIW Diastolic Thickness (2D) 0.8 cm 0.6-0.9 LVID Systole (2D) 3.3 cm 2.2-3.5 LVOT Diameter 2.0 cm LV Mass (2D Cubed) 114.78 g 67.00-162.00 LV Mass Index (2D Cubed) 69 g/m2 43-95 Relative Wall Thickness (2D) 0.32 LV Fractional Shortening/Ejection Fraction 2D/MM LV Fractional Shortening (2D) 29 % 27-45 LV EF (2D Teicholz) 56 % 54-74 LV Diastolic Volume (4C MOD) 51 ml LV EF (4C MOD) 64 % LV Diastolic Volume (2C MOD) 46 ml LV EF (2C MOD) 68 % LV Diastolic Volume (BP MOD) 48 ml 46-106 LV Diastolic Volume Index (BP MOD) 29 ml/m2 29-61 LV Systolic Volume (BP MOD) 17 ml 14-42 LV Systolic Volume Index (BP MOD) 10 ml/m2 8-24 LV EF (BP MOD) 65 % 54-74 LV Diastolic Length (4C) 7.6 cm LV Systolic Length (4C) 7.2 cm LV Stroke Volume (4C MOD) 32 ml Atria Name Value Normal LA Dimensions LA Dimension (MM) 4.0 cm 2.7-3.8 LA Volume (4C A-L) 61 ml LA Volume (BP A-L) 69 ml RA Dimensions RA Area (4C) 11.7 cm2 <=18.0 Report Signatures
[2024-07-07] MEDS: CEFEPIME 2 GM/NS 50 ML 2 GM/50 ML BAG IVPB ×2 (00:04→11:32)
[2024-07-07 00:35] LABS: Glucose Point of Care 125 mg/dl (65-105)
[2024-07-07] MEDS: TRIMETHOBENZAMIDE HCL 200 MG/2 ML VIAL IM ×2 (02:14→15:44)
[2024-07-07] MEDS: IPRATROPIUM 0.5 MG/ALBUTEROL SULFATE 2.5 MG AMPUL.NEB 3 ML INHALATION ×4 (02:32→20:34)
[2024-07-07] MEDS: ACETAMINOPHEN 650 MG SUPPOSITORY RECTAL (03:16)
--- NOTE | 2024-07-07 04:01 | PC.NURSE ---
RN educated the patient on the importance of not pulling on the NG tube. Additional education was provided about leaving the HF cannula in the nose once placed and reinforced education on not pulling on the NG tubing, advising patient that pulling it would result in the tube being reinserted and patient might have to have wrist restraints placed. The patient was found to have pulled the NG out from a placement of 70 to 30 around 0040. The NG was reinserted to 70 and KUB ordered. Restraints were ordered and placed at 0046. Patient was found to have repositioned herself in bed enough to reach the NG tube and pulled it again out of place around 0225. NG was reinserted and KUB was ordered. Patient was repositioned in bed after a bath/bed change and reoriented and educated again on the importance of the NG tube and HF cannula to her recovery.
[2024-07-07] MEDS: AMIODARONE 360 MG/D5W 200 ML 360 MG/200 ML BAG 16.67 MG IV CONT (04:44)
[2024-07-07 05:10] LABS: Alveolar/Arterial O2 Gradient 121.5 mmHg; Base Excess ABG -1.7 mEq/l (+/-2.0); Carboxyhemoglobin 0.2 % THb (0-2.0); Fractional Inspired Oxygen 30 %; HCO3 ABG 20.4 mEq/l (22.0-26.0); Methemoglobin ABG 0.3 %THb (0-1.5); Oxygen Content ABG 14.1 %vol (16.0-22.0); Oxygen Saturation ABG 93.7 % (95.0-100.0); Oxyhemoglobin 92.6 % THb (90.0-100.0); PCO2 ABG 26.8 mmHg (35.0-45.0); PO2 ABG 60.9 mmHg (80.0-100.0); PO2 FiO2 Ratio Arterial Blood 2.03 %; Reduced Hemoglobin 6.9 %THb (0-5.0); Total Hemoglobin 10.8 g/dL (12.0-18.0)
[2024-07-07 05:11] LABS: Device HIGH FLOW THERAPY; Modified Allen's Test Pass; Site Drawn RIGHT RADIAL
[2024-07-07 05:31] LABS: Alanine Aminotransferase 29 U/L (6-35); Albumin Level 3.1 g/dL (3.5-5.1); Alkaline Phosphatase 65 U/L (38-126); Anion Gap 11 mmol/L (4-12); Aspartate Amino Transferase 77 U/L (14-36); Bilirubin,Total 0.9 mg/dL (0.2-1.3); Blood Urea Nitrogen 23 mg/dL (7-17); Calcium 8.1 mg/dL (8.4-10.2); Carbon Dioxide 21 mmol/L (22-30); Chloride 108 mmol/L (98-107); Estimated CRCL calculation 49 ml/min; Estimated Glomerular Filt Rate > 60; Glucose 133 mg/dL (65-110); Magnesium 1.9 mg/dL (1.6-2.3); Potassium 2.8 mmol/L (3.4-5.0); Sodium 140 mmol/L (137-145)
[2024-07-07 05:34] LABS: Hematocrit 29.7 % (37.0-47.0); Hemoglobin 9.7 g/dL (12.0-15.0); Mean Corpuscular HGB Conc 32.7 g/dl (32-36); Mean Corpuscular Hemoglobin 29.6 pg (26-34); Mean Corpuscular Volume 90.5 fl (80-100); Platelet Count Result 126 k/mm3 (150-375); Red Blood Count 3.28 M/mm3 (4.2-5.4); Red Cell Distribution Width 17.1 % (11.5-14.5)
[2024-07-07] MEDS: metroNIDAZOLE 500 MG/ISO 100ML 500 MG/100 ML BAG 100 MG IVPB ×3 (07:00→20:49)
[2024-07-07] MEDS: KCL 20 MEQ/SW 100 ML 100 ML 50 MEQ IVPB ×2 (07:01→15:46)
[2024-07-07] MEDS: KCL 40 MEQ/WATER 100 ML 100 ML 25 ML IVPB (07:57)
[2024-07-07] MEDS: PANTOPRAZOLE SODIUM IV 40 MG VIAL IV PUSH (08:44)
[2024-07-07] MEDS: MEMANTINE 5 MG TABLET FEED TUBE ×2 (08:44→20:49)
[2024-07-07] MEDS: LEVOTHYROXINE SODIUM 100 MCG TABLET FEED TUBE (08:44)
[2024-07-07] MEDS: ASPIRIN 325 MG TABLET FEED TUBE (08:44)
[2024-07-07] MEDS: ENOXAPARIN 60 MG/0.6 ML SYRINGE SUB-Q ×2 (08:44→20:48)
--- NOTE | 2024-07-07 09:29 | P.PNINT_ITS ---
Progress Note: A&P Assessment and Plan (1) Acute respiratory failure with hypoxia: Code(s): J96.01 - Acute respiratory failure with hypoxia Status: Acute Assessment and Plan: Acute respiratory failure secondary to pneumonia which is likely aspiration CT scan chest x-ray and ABG reviewed Patient was extubated yesterday after a successful weaning trial. Post that patient was tachypneic and was placed on BiPAP for work of breathing and respiratory support BiPAP had to be discontinued due to nausea. Now she has Vapotherm at 40 L and 30% FiO2 will try to wean her off to nasal cannula She does have some tachypnea but ABG shows hyperventilation and patient does not appear in distress with no use of accessory muscle Continue current management Add incentive spirometry IV Lasix (2) Septic shock: Code(s): A41.9 - Sepsis, unspecified organism; R65.21 - Severe sepsis with septic shock Status: Acute Assessment and Plan: Septic shock secondary to aspiration pneumonia and UTI Continue cefepime and Flagyl. Discontinue vancomycin MRSA screen negative, blood and urine cultures have been sent and are pending patient does have E coli history which was not ESBL Off Levophed and IV fluid (3) Pneumonia: Code(s): J18.9 - Pneumonia, unspecified organism Status: Acute Assessment and Plan: See above (4) Hyperlipidemia: Code(s): E78.5 - Hyperlipidemia, unspecified Status: Acute Assessment and Plan: Rosuvastatin (5) Diabetes mellitus: Code(s): E11.9 - Type 2 diabetes mellitus without complications Status: Acute Assessment and Plan: Sliding scale insulin (6) Nausea & vomiting: Code(s): R11.2 - Nausea with vomiting, unspecified Status: Acute Assessment and Plan: NG tube in placed and hooked up to low intermittent suction Patient has chronic nausea vomit CT abdomen does not show any evidence of obstruction (7) UTI (urinary tract infection): Qualifiers: Hematuria presence: with hematuria Urinary tract infection type: acute cystitis Qualified Code(s): N30.01 - Acute cystitis with hematuria Code(s): N39.0 - Urinary tract infection, site not specified Status: Acute Assessment and Plan: Antibiotics as above (8) Elevated troponin: Code(s): R79.89 - Other specified abnormal findings of blood chemistry Status: Acute Assessment and Plan: Patient presented with elevated troponin which peaked at 3.1 and now is trending down This appears to be type 2 non STEMI likely secondary to respiratory failure and septic shock. EKG was done and does not show any signs of ischemia. Patient did not complain of any chest pain at the time of presentation Continue aspirin and statin Pending echocardiogram Cardiology following Continue therapeutic dose Lovenox as per Cardiology recommended (9) Atrial fibrillation: Code(s): I48.91 - Unspecified atrial fibrillation Status: Acute Assessment and Plan: Patient went into AFib with ventricular rate is mostly controlled. Patient for also on Levophed. Patient was started therapeutic dose Lovenox and amiodarone infuse Patient has now converted to sinus rhythm. Amiodarone will be discontinued today (10) Electrolyte abnormality: Code(s): E87.8 - Other disorders of electrolyte and fluid balance, not elsewhere classified Status: Acute Assessment and Plan: Potassium replacement ordered Will recheck BMP later today (11) Anisocoria: Code(s): H57.02 - Anisocoria Status: Acute Assessment and Plan: Left pupil is larger than right but reactive to light Patient has had shingles in around left eye and chronic pain. She has had bilateral eye surgeries. 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 Probable focal occlusion at the origin of the right external carotid artery with near immediate reconstitution. Plan DVT prophylaxis -Lovenox Stress ulcer prophylaxis -PPI Nutrition -npo Code Status -patient's confirms patient code status to DNR. H 07/07 I spoke to patient's and daughter at bedside and updated them with patient's status and answered all their questions. Case discussed with Cardiology Total Critical Care Time - 35 minutes Due to a high probability of clinically significant, life threatening deterioration, the patient required my highest level of preparedness to intervene emergently and I personally spent this critical care time directly and personally managing the patient. This critical care time included obtaining a history; examining the patient; pulse oximetry; ordering and review of studies; arranging urgent treatment with development of a management plan; evaluation of patient's response to treatment; frequent reassessment; and discussions with other providers. It was exclusive of separately billable procedures and treating other patients and teaching time. Please see Assessment and Plan section and the rest of the note for further information on patient assessment and treatment Subjective Date/time seen: 07/07/24 Overnight events reviewed. febrile Patient was extubated yesterday after a successful weaning trial. Post extubation patient was tachypneic. Later she was placed on BiPAP in the evening for help with work of breathing. She developed nausea hence BiPAP was discontinued and patient was switched to Vapotherm. NG tube was placed and hooked up to low intermittent suction. She was confused overnight and pulled out NG tube couple of times hence had to physically restrained. This morning she continues to have NG tube in with bilious output. She states she has pain in forehead on the left side which is chronic. and daugh ter states the patient has chronic nausea and vomiting. She was the oxygen to be removed as it irritates her nose. She denies any pain or feeling of shortness of breath. She denies any fever abdominal pain chest pain cough. All other systems were reviewed and were negative She is on Vapotherm at 30% FiO2 and 40 L flow Review of Systems Review of Systems: All systems reviewed & are unremarkable except as noted in HPI and below (HPI) Exam Narrative: General: Pt is alert awake Lungs/Chest: Trachea central Coarse BS B/L, No crackles or wheezing. Mild tachypnea but no respiratory distress or use of accessory muscle Cardiac: RRR. Normal S1 S2. No murmurs Circulation: Pedal pulses are intact and symmetrical. Abdomen: Decreased bowel sounds. Soft. NT. ND. NG tube in place Extremities: No clubbing, cyanosis or edema. Warm : Jones in place Neurologic: AO x2. Left pupil is enlarged but reactive to light. Patient's states the patient has had eye surgeries and was side and also had multiple injections for trigeminal nerve pain on the left side and had shingles Objective Data Vital Signs Vital Signs: Vital Signs - 24 hr 07/06/24 09:30 07/06/24 10:00 07/06/24 10:00 Temperature Pulse Rate 118 H 127 H 120 H Respiratory Rate 21 H 21 H Blood Pressure 115/51 L Pulse Oximetry Oxygen Delivery Oxygen Flow Rate Fraction of Inspired Oxygen 07/06/24 10:00 07/06/24 10:00 07/06/24 10:00 Temperature 38.6 C H Pulse Rate 120 H 120 H 121 H Respiratory Rate 21 H Blood Pressure 127/63 127/63 Pulse Oximetry 92 Oxygen Delivery Oxygen Flow Rate Fraction of Inspired Oxygen 07/06/24 11:00 07/06/24 11:15 07/06/24 11:15 Temperature Pulse Rate 122 H Respiratory Rate Blood Pressure 113/58 L Pulse Oximetry 94 97 Oxygen Delivery Nasal Cannula Nasal Cannula Oxygen Flow Rate 2 2 Fraction of Inspired Oxygen 07/06/24 11:26 07/06/24 11:27 07/06/24 11:37 Temperature Pulse Rate 124 H 120 H 123 H Respiratory Rate Blood Pressure 107/53 L 113/58 L 115/58 L Pulse Oximetry Oxygen Delivery Oxygen Flow Rate Fraction of Inspired Oxygen 07/06/24 12:00 07/06/24 12:00 07/06/24 12:05 Temperature 38.3 C H Pulse Rate 114 H 113 H 116 H Respiratory Rate 28 H 20 Blood Pressure 111/57 L Pulse Oximetry 92 Oxygen Delivery Oxygen Flow Rate Fraction of Inspired Oxygen 07/06/24 12:08 07/06/24 12:15 07/06/24 12:27 Temperature Pulse Rate 120 H 114 H 113 H Respiratory Rate 30 H 30 H Blood Pressure 111/57 L Pulse Oximetry 93 Oxygen Delivery Nasal Cannula Oxygen Flow Rate 2 Fraction of Inspired Oxygen 07/06/24 13:55 07/06/24 13:56 07/06/24 13:56 Temperature 38.4 C H Pulse Rate 109 H Respiratory Rate 24 H Blood Pressure Pulse Oximetry 95 Oxygen Delivery Nasal Cannula Oxygen Flow Rate 2 Fraction of Inspired Oxygen 07/06/24 14:00 07/06/24 14:00 07/06/24 14:00 Temperature 38.4 C H Pulse Rate 108 H 108 H 108 H Respiratory Rate 33 H Blood Pressure 109/65 119/60 Pulse Oximetry 99 Oxygen Delivery Oxygen Flow Rate Fraction of Inspired Oxygen 07/06/24 14:08 07/06/24 14:55 07/06/24 16:00 Temperature 38.8 C H Pulse Rate 112 H 102 H Respiratory Rate 24 H Blood Pressure 113/55 L Pulse Oximetry Oxygen Delivery Oxygen Flow Rate Fraction of Inspired Oxygen 07/06/24 16:00 07/06/24 16:00 07/06/24 16:00 Temperature 38.9 C H Pulse Rate 102 H 102 H Respiratory Rate 28 H 34 H Blood Pressure 113/55 L Pulse Oximetry 99 91 Oxygen Delivery BiPAP Oxygen Flow Rate Fraction of Inspired Oxygen 40 07/06/24 16:25 07/06/24 16:49 07/06/24 16:50 Temperature Pulse Rate 97 97 96 Respiratory Rate 32 H Blood Pressure 119/55 L 117/58 L Pulse Oximetry 98 Oxygen Delivery BiPAP Oxygen Flow Rate Fraction of Inspired Oxygen 07/06/24 18:00 07/06/24 18:00 07/06/24 18:00 Temperature 39.2 C H Pulse Rate 97 95 95 Respiratory Rate 27 H Blood Pressure 123/54 L 128/54 L Pulse Oximetry 94 Oxygen Delivery Oxygen Flow Rate Fraction of Inspired Oxygen 07/06/24 20:00 07/06/24 20:00 07/06/24 20:00 Temperature 37.5 C Pulse Rate 96 93 93 Respiratory Rate 22 H Blood Pressure 108/87 122/59 L Pulse Oximetry 98 Oxygen Delivery Oxygen Flow Rate Fraction of Inspired Oxygen 07/06/24 20:00 07/06/24 20:10 07/06/24 20:27 Temperature 39.2 C H Pulse Rate 93 101 H Respiratory Rate 30 H 27 H Blood Pressure Pulse Oximetry 99 99 Oxygen Delivery Nasal Cannula BiPAP Oxygen Flow Rate 2 Fraction of Inspired Oxygen 07/06/24 21:05 07/06/24 22:00 07/06/24 22:00 Temperature Pulse Rate 95 96 96 Respiratory Rate 24 H Blood Pressure 116/54 L Pulse Oximetry Oxygen Delivery Oxygen Flow Rate Fraction of Inspired Oxygen 07/06/24 22:05 07/06/24 22:09 07/07/24 00:00 Temperature 37.2 C Pulse Rate 109 H 97 97 Respiratory Rate 22 H 31 H Blood Pressure 115/54 L Pulse Oximetry 95 96 96 Oxygen Delivery High Flow Therapy with Na High Flow Therapy with Na Oxygen Flow Rate 40 40 Fraction of Inspired Oxygen 30 30 07/07/24 00:00 07/07/24 00:00 07/07/24 00:42 Temperature 37.4 C Pulse Rate 97 103 H 103 H Respiratory Rate 26 H Blood Pressure 104/53 L 132/56 L Pulse Oximetry 91 Oxygen Delivery Oxygen Flow Rate Fraction of Inspired Oxygen 07/07/24 02:00 07/07/24 02:00 07/07/24 02:15 Temperature 38.4 C H Pulse Rate 103 H 97 105 H Respiratory Rate 24 H Blood Pressure 110/48 L 136/65 Pulse Oximetry 91 Oxygen Delivery Oxygen Flow Rate Fraction of Inspired Oxygen 07/07/24 02:32 07/07/24 02:40 07/07/24 02:42 Temperature Pulse Rate 107 H 106 H 105 H Respiratory Rate 30 H 27 H Blood Pressure Pulse Oximetry 98 Oxygen Delivery High Flow Therapy with Na Oxygen Flow Rate 40 Fraction of Inspired Oxygen 30 07/07/24 03:16 07/07/24 04:00 07/07/24 04:00 Temperature 39.0 C H Pulse Rate 96 102 H Respiratory Rate Blood Pressure 112/52 L Pulse Oximetry Oxygen Delivery Oxygen Flow Rate Fraction of Inspired Oxygen 07/07/24 04:00 07/07/24 04:05 07/07/24 04:22 Temperature 38.7 C H 38.8 C H Pulse Rate 97 96 Respiratory Rate 28 H 22 H Blood Pressure 134/62 Pulse Oximetry 94 94 Oxygen Delivery High Flow Therapy with Na Oxygen Flow Rate 40 Fraction of Inspired Oxygen 30 07/07/24 04:44 07/07/24 04:44 07/07/24 06:00 Temperature Pulse Rate 98 98 90 Respiratory Rate Blood Pressure 126/61 126/61 132/64 Pulse Oximetry Oxygen Delivery Oxygen Flow Rate Fraction of Inspired Oxygen 07/07/24 06:00 07/07/24 06:00 07/07/24 08:00 Temperature 37.1 C Pulse Rate 90 90 88 Respiratory Rate 24 H Blood Pressure 132/64 128/64 Pulse Oximetry 94 Oxygen Delivery Oxygen Flow Rate Fraction of Inspired Oxygen 07/07/24 08:00 07/07/24 08:00 07/07/24 08:15 Temperature 36.9 C Pulse Rate 88 88 Respiratory Rate 34 H Blood Pressure 128/64 Pulse Oximetry 95 95 Oxygen Delivery High Flow Therapy with Na Oxygen Flow Rate 40 Fraction of Inspired Oxygen 30 07/07/24 08:38 07/07/24 08:38 07/07/24 08:46 Temperature Pulse Rate 87 89 Respiratory Rate 32 H 36 H Blood Pressure Pulse Oximetry 95 Oxygen Delivery High Flow Therapy with Na Oxygen Flow Rate 40 Fraction of Inspired Oxygen 30 Intake/Output Intake/Output: Intake & Output 07/04/24 07/05/24 07/06/24 07/07/24 23:59 23:59 23:59 23:59 Intake Total 1847.8667 2469.4 365.7 Output Total 900 1160 250 Balance 947.8667 1309.4 115.7 Meds/Results Medications: Active Medications Generic Name Dose Route Start Last Admin Trade Name Freq PRN Reason Stop Dose Admin Acetaminophen 650 mg 07/05/24 11:14 07/07/24 03:16 Acetaminophen 650 Mg Suppository RECTAL 650 mg Q6H PRN Administration Mild Pain (1-3) or Fever Albuterol/Ipratropium 3 ml 07/06/24 14:00 07/07/24 08:38 Ipratropium 0.5 Mg/Albuterol Sulfate 2.5 Mg Ampul.Neb 3 Ml INHALATION 3 ml Q6HRT SHAKILA Administration Aspirin 325 mg 07/06/24 08:35 07/07/24 08:44 Aspirin 325 Mg Tablet FEED TUBE 325 mg DAILY@0800 SHAKILA Administration Dextrose 12.5 gm 07/05/24 17:16 Dextrose 50% 25 Gm/50 Ml Syringe IV PUSH PRN PRN Hypoglycemia Protocol Enoxaparin Sodium 60 mg 07/06/24 21:00 07/07/24 08:44 Enoxaparin 60 Mg/0.6 Ml Syringe SUB-Q 60 mg Q12HR SHAKILA Administration Glucagon 1 mg 07/05/24 17:16 Glucagon For Inj 1 Mg Vial IM PRN PRN Hypoglycemia Protocol Glucose 15 gm 07/05/24 17:16 Glucose Oral Gel 15 Gm Of Glucse In 37.5 Gm Tube PO PRN PRN Hypoglycemia Protocol Dextrose 1,000 mls @ 100 mls/hr 07/05/24 17:16 Dextrose 5% 1,000 Ml IVPB PRN PRN Hypoglycemia Protocol Cefepime HCl 2 gm in 50 mls @ 100 mls/hr 07/06/24 00:00 07/07/24 00:35 Maxipime 2 Gm/Ns 50 Ml IVPB Infused Q12H SHAKILA Infusion Metronidazole 500 mg in 100 mls @ 100 mls/hr 07/05/24 22:00 07/07/24 08:00 Flagyl 500 Mg/Iso Soln 100 Ml IVPB Infused Q8HR SHAKILA Infusion Amiodarone HCl/Dextrose 360 mg in 200 mls @ 16.667 mls/hr 07/06/24 16:50 07/07/24 08:00 Nexterone 360 Mg/D5w 200 Ml IV CONT 07/07/24 10:49 0.5 mg/min .Q12H SHAKILA 16.67 mls/hr Infusion 0.5 MG/MIN Potassium Chloride 100 mls @ 25 mls/hr 07/07/24 06:00 07/07/24 07:57 Kcl 40 Meq/Water 100 Ml IVPB 07/07/24 09:59 25 mls/hr ONCE ONE Administration Potassium Chloride 100 mls @ 50 mls/hr 07/07/24 10:00 07/07/24 08:00 Kcl 20 Meq/Sw 100 Ml IVPB 07/07/24 11:59 0 mls/hr ONCE ONE Infusion Insulin Aspart 2 - 5 units 07/05/24 18:00 07/07/24 08:11 Insulin Aspart (*Bkc) 100 Units/Ml SUB-Q Not Given Q6HR SHAKILA Protocol Levothyroxine Sodium 100 mcg 07/06/24 06:30 07/07/24 08:44 Levothyroxine Sodium 100 Mcg Tablet FEED TUBE 100 mcg DAILY@0630 SHAKILA Administration Memantine 5 mg 07/06/24 09:00 07/07/24 08:44 Memantine 5 Mg Tablet FEED TUBE 5 mg Q12HR SHAKILA Administration Pantoprazole Sodium 40 mg 07/06/24 09:00 07/07/24 08:44 Pantoprazole Sodium Iv 40 Mg Vial IV PUSH 40 mg QAM SHAKILA Administration Perflutren Lipid Microsphere 0 ml 07/06/24 08:31 Perflutren Lipid Microspheres 1.5 Ml Vial Diluted To 10 Ml Total Volume IV PUSH 07/09/24 08:31 ONCE PRN adequate visualization Protocol Rosuvastatin Calcium 40 mg 07/06/24 21:00 07/06/24 20:42 Rosuvastatin 20 Mg Tablet FEED TUBE Not Given HS SHAKILA Trimethobenzamide HCl 200 mg 07/06/24 18:21 07/07/24 02:14 Trimethobenzamide Hcl 200 Mg/2 Ml Vial IM 200 mg Q6H PRN Administration Nausea And Vomiting Radiology Results: ITS Impressions Chest/Abdomen/Pelvis CT 07/05/24 13:11 IMPRESSION: 1. Bilateral lower lobe pneumonia with additional small amount of pneumonia in the lingula. 2. No acute intra-abdominal/pelvic process. Abdomen X-Ray 07/07/24 06:26 Impression: NG tube remains in satisfactory position. Right-sided central venous line tip is in the right atrium or possibly just in the IVC. Consider retraction. Chest X-Ray 07/07/24 06:34 Impression: Hazy airspace disease perihilar regions and left lung base. Correlate for pulmonary edema, or possibly pneumonia. Possible underlying COPD. Support tubes, as above. Consider retraction of right subclavian line. Head CT 07/07/24 06:36 Impression: No significant abnormality seen. Case discussed with GINI العلي at 6:38 AM on 07/07/2024. Head/Neck CTA 07/07/24 06:46 Impression: High-grade, 95% stenoses at the proximal internal carotid arteries bilaterally. Probable focal occlusion at the origin of the right external carotid artery with near immediate reconstitution. ADDENDUM: 07/07/24 0714 Extensive groundglass pulmonary consolidation in the visualized lungs suggest moderate to advanced pulmonary edema. Correlate clinically for pneumonia. Labs Labs: Laboratory Results - last 24 hr 07/06/24 07/06/24 07/06/24 10:21 11:46 17:21 WBC RBC Hgb Hct MCV MCH MCHC RDW Plt Count MPV Puncture Site Left radial ABG pH 7.415 ABG pCO2 33.7 L ABG pO2 52.9 L ABG PO2/FiO2 Ratio 1.76 ABG HCO3 21.1 L ABG O2 Saturation 88.2 L ABG O2 Content 13.7 L ABG Base Excess -2.8 A-a Gradient 121.4 Oxyhemoglobin 87.5 L* Carboxyhemoglobin Methemoglobin Reduced Hemoglobin Total Hemoglobin 11.1 L O2 Delivery Device Ventilator O2 Liters/Min Not Reportable Minute Volume Not Reportable Vent Rate Not Reportable Vent Mode Spontaneous FiO2 30 Tidal Volume Not Reportable PEEP 5 Peak Inspir Pressure Not Reportable Pressure Support 5 Sodium Potassium Chloride Carbon Dioxide Anion Gap BUN Creatinine Estim Creat Clear Calc Estimated GFR Glucose POC Capillary Glucose 103 132 H Calcium Magnesium Total Bilirubin AST ALT Alkaline Phosphatase Total Protein Albumin 07/07/24 07/07/24 07/07/24 00:33 05:00 05:01 WBC 11.0 H RBC 3.28 L Hgb 9.7 L Hct 29.7 L MCV 90.5 MCH 29.6 MCHC 32.7 RDW 17.1 H Plt Count 126 L MPV 12.0 H Puncture Site Right radial ABG pH 7.500 H ABG pCO2 26.8 L ABG pO2 60.9 L ABG PO2/FiO2 Ratio 2.03 ABG HCO3 20.4 L ABG O2 Saturation 93.7 L ABG O2 Content 14.1 L ABG Base Excess -1.7 A-a Gradient 121.5 Oxyhemoglobin 92.6 Carboxyhemoglobin 0.2 Methemoglobin 0.3 Reduced Hemoglobin 6.9 H Total Hemoglobin 10.8 L O2 Delivery Device High flow therapy O2 Liters/Min 40.0 Minute Volume Vent Rate Vent Mode FiO2 30 Tidal Volume PEEP Peak Inspir Pressure Pressure Support Sodium 140 Potassium 2.8 L* Chloride 108 H Carbon Dioxide 21 L Anion Gap 11 BUN 23 H Creatinine 0.75 Estim Creat Clear Calc 49 Estimated GFR > 60 Glucose 133 H POC Capillary Glucose 125 H Calcium 8.1 L Magnesium 1.9 Total Bilirubin 0.9 AST 77 H ALT 29 Alkaline Phosphatase 65 Total Protein 6.0 L Albumin 3.1 L Quality VTE Prophylaxis VTE prophylaxis: pharmacologic ordered
--- NOTE | 2024-07-07 10:27 | P.PNCA_ITS ---
Progress Note: A&P Assessment and Plan (1) Elevated troponin: Code(s): R79.89 - Other specified abnormal findings of blood chemistry Status: Acute (2) Hyperlipidemia: Code(s): E78.5 - Hyperlipidemia, unspecified Status: Acute (3) Essential hypertension: Code(s): I10 - Essential (primary) hypertension Status: Acute Plan Elevated troponin, probable type 2 NSTEMI Paroxysmal atrial fibrillation, new diagnosis. Back pain Acute hypoxic respiratory failure s/p intubated and sedated secondary to pneumonia; CT chest showed pneumonia Hypokalemia Hypomagnesemia Sepsis secondary to UTI and pneumonia - on broad-spectrum antibiotics Septic shock requiring Levophed DM HTN Hyperlipidemia Plan: -Given patient had no complaints of chest pain prior to admission, the rise in troponin is most likely type 2 PR with supply demand mismatch due to stress of acute illness. Troponin has peaked and is now downtrending. EKG is sinus rhythm with possible old anterior infarction and no new ischemic changes. Recommend continuing medical management with aspirin, statin. Once patient recovers from her acute illness, recommend further coronary evaluation with an outpatient stress test -Regarding paroxysmal atrial fibrillation, this appears to be a new diagnosis. Continue Amiodarone drip for now. Will need anticoagulation for stroke prophylaxis when stable. -TTE today to evaluate LVEF and RWMA -No BB or other blood pressure lowering meds given hypotension -Check and replace electrolytes as needed keeping K>4 and Mg>2 -Management of non cardiac medical problems per primary ICU team Subjective Date/time seen: 07/07/24 10:27 Interval history: Reason for visit: HPI: 73-year-old female with history of shingles face, diabetes, hypothyroidism, hypertension, hyperlipidemia, breast cancer, and MGUS presents to the hospital with fever 102.4 and shortness of breath. Patient was intubated emergently in the ED for respiratory failure and is unable to provide any history. History is obtained from patient's and the medical chart. Per the the patient was complaining of severe back pain yesterday but no respiratory symptoms. He states that she was able to cook, clean, do laundry, and she even up and down stairs. She had an emesis this morning when she woke up and had more emesis after going back to bed. He called 911 due to patient having trouble breathing. Per EMS patient's SpO2 was 70% and she was placed on non- rebreather. In the ER patient was on 15 L non-rebreather with SpO2 in the low 90s and respiratory rate of 40 for which she was emergently intubated. Labs showed a potassium of 2.9, lactic acid of 3.5, magnesium 1.5, and troponin of 0.747, then 2.2. EKG showed sinus tachycardia with occasional PVCs, T-wave abnormality, heart rate 117, QTC 611. UA was negative for nitrates but had 1+ leukocyte esterase. Influenza A B, COVID, and RSV were negative. Blood cultures were drawn and pending. In the ED the patient was given IV Flagyl, vancomycin, 2 g magnesium, 20 millimoles of potassium phosphate. Patient was hypotensive after bolus of IV fluids were administered and she was started on Levophed. Cardiology was consulted given elevated troponin. Date of service 07/06: Troponin increased to 2.2, 2.9 and peaked at 3.1 and is now down trending to 2.8. Patient is intubated and unable to elicit any history from her. Tele shows sinus rhythm. Date of service 07/07: Noticed to have an unequal pupil size this morning, [facility] was called. Head CT showed no significant abnormality. CTA Head and Neck showed high-grade 95% stenosis at the proximal internal carotid arteries bilaterally. Probable focal occlusion at the origin of the right external carotid artery with near immediate reconstitution. Tele shows sinus rhythm, had some AFIB yesterday. Currently on Amiodarone drip. Review of Systems Review of Systems: ROS unobtainable: Yes unobtainable due to mental status Exam Const: Other: Ill appearing female, on multiple drips HENMT: Other: NG tube in place Resp: Other: On HFNC Cardio: Rate: regular rate Rhythm: regular rhythm Heart sounds: no murmurs Neuro: Other: Altered mental status Objective Data Vital Signs Vital Signs: Vital Signs - 24 hr 07/06/24 11:00 07/06/24 11:15 07/06/24 11:15 Temperature Pulse Rate 122 H Respiratory Rate Blood Pressure 113/58 L Pulse Oximetry 94 97 Oxygen Delivery Nasal Cannula Nasal Cannula Oxygen Flow Rate 2 2 Fraction of Inspired Oxygen 07/06/24 11:26 07/06/24 11:27 07/06/24 11:37 Temperature Pulse Rate 124 H 120 H 123 H Respiratory Rate Blood Pressure 107/53 L 113/58 L 115/58 L Pulse Oximetry Oxygen Delivery Oxygen Flow Rate Fraction of Inspired Oxygen 07/06/24 12:00 07/06/24 12:00 07/06/24 12:05 Temperature 38.3 C H Pulse Rate 114 H 113 H 116 H Respiratory Rate 28 H 20 Blood Pressure 111/57 L Pulse Oximetry 92 Oxygen Delivery Oxygen Flow Rate Fraction of Inspired Oxygen 07/06/24 12:08 07/06/24 12:15 07/06/24 12:27 Temperature Pulse Rate 120 H 114 H 113 H Respiratory Rate 30 H 30 H Blood Pressure 111/57 L Pulse Oximetry 93 Oxygen Delivery Nasal Cannula Oxygen Flow Rate 2 Fraction of Inspired Oxygen 07/06/24 13:55 07/06/24 13:56 07/06/24 13:56 Temperature 38.4 C H Pulse Rate 109 H Respiratory Rate 24 H Blood Pressure Pulse Oximetry 95 Oxygen Delivery Nasal Cannula Oxygen Flow Rate 2 Fraction of Inspired Oxygen 07/06/24 14:00 07/06/24 14:00 07/06/24 14:00 Temperature 38.4 C H Pulse Rate 108 H 108 H 108 H Respiratory Rate 33 H Blood Pressure 109/65 119/60 Pulse Oximetry 99 Oxygen Delivery Oxygen Flow Rate Fraction of Inspired Oxygen 07/06/24 14:08 07/06/24 14:55 07/06/24 16:00 Temperature 38.8 C H Pulse Rate 112 H 102 H Respiratory Rate 24 H Blood Pressure 113/55 L Pulse Oximetry Oxygen Delivery Oxygen Flow Rate Fraction of Inspired Oxygen 07/06/24 16:00 07/06/24 16:00 07/06/24 16:00 Temperature 38.9 C H Pulse Rate 102 H 102 H Respiratory Rate 28 H 34 H Blood Pressure 113/55 L Pulse Oximetry 99 91 Oxygen Delivery BiPAP Oxygen Flow Rate Fraction of Inspired Oxygen 40 07/06/24 16:25 07/06/24 16:49 07/06/24 16:50 Temperature Pulse Rate 97 97 96 Respiratory Rate 32 H Blood Pressure 119/55 L 117/58 L Pulse Oximetry 98 Oxygen Delivery BiPAP Oxygen Flow Rate Fraction of Inspired Oxygen 07/06/24 18:00 07/06/24 18:00 07/06/24 18:00 Temperature 39.2 C H Pulse Rate 97 95 95 Respiratory Rate 27 H Blood Pressure 123/54 L 128/54 L Pulse Oximetry 94 Oxygen Delivery Oxygen Flow Rate Fraction of Inspired Oxygen 07/06/24 20:00 07/06/24 20:00 07/06/24 20:00 Temperature 37.5 C Pulse Rate 96 93 93 Respiratory Rate 22 H Blood Pressure 108/87 122/59 L Pulse Oximetry 98 Oxygen Delivery Oxygen Flow Rate Fraction of Inspired Oxygen 07/06/24 20:00 07/06/24 20:10 07/06/24 20:27 Temperature 39.2 C H Pulse Rate 93 101 H Respiratory Rate 30 H 27 H Blood Pressure Pulse Oximetry 99 99 Oxygen Delivery Nasal Cannula BiPAP Oxygen Flow Rate 2 Fraction of Inspired Oxygen 07/06/24 21:05 07/06/24 22:00 07/06/24 22:00 Temperature Pulse Rate 95 96 96 Respiratory Rate 24 H Blood Pressure 116/54 L Pulse Oximetry Oxygen Delivery Oxygen Flow Rate Fraction of Inspired Oxygen 07/06/24 22:05 07/06/24 22:09 07/07/24 00:00 Temperature 37.2 C Pulse Rate 109 H 97 97 Respiratory Rate 22 H 31 H Blood Pressure 115/54 L Pulse Oximetry 95 96 96 Oxygen Delivery High Flow Therapy with Na High Flow Therapy with Na Oxygen Flow Rate 40 40 Fraction of Inspired Oxygen 30 30 07/07/24 00:00 07/07/24 00:00 07/07/24 00:42 Temperature 37.4 C Pulse Rate 97 103 H 103 H Respiratory Rate 26 H Blood Pressure 104/53 L 132/56 L Pulse Oximetry 91 Oxygen Delivery Oxygen Flow Rate Fraction of Inspired Oxygen 07/07/24 02:00 07/07/24 02:00 07/07/24 02:15 Temperature 38.4 C H Pulse Rate 103 H 97 105 H Respiratory Rate 24 H Blood Pressure 110/48 L 136/65 Pulse Oximetry 91 Oxygen Delivery Oxygen Flow Rate Fraction of Inspired Oxygen 07/07/24 02:32 07/07/24 02:40 07/07/24 02:42 Temperature Pulse Rate 107 H 106 H 105 H Respiratory Rate 30 H 27 H Blood Pressure Pulse Oximetry 98 Oxygen Delivery High Flow Therapy with Na Oxygen Flow Rate 40 Fraction of Inspired Oxygen 30 07/07/24 03:16 07/07/24 04:00 07/07/24 04:00 Temperature 39.0 C H Pulse Rate 96 102 H Respiratory Rate Blood Pressure 112/52 L Pulse Oximetry Oxygen Delivery Oxygen Flow Rate Fraction of Inspired Oxygen 07/07/24 04:00 07/07/24 04:05 07/07/24 04:22 Temperature 38.7 C H 38.8 C H Pulse Rate 97 96 Respiratory Rate 28 H 22 H Blood Pressure 134/62 Pulse Oximetry 94 94 Oxygen Delivery High Flow Therapy with Na Oxygen Flow Rate 40 Fraction of Inspired Oxygen 30 07/07/24 04:44 07/07/24 04:44 07/07/24 06:00 Temperature Pulse Rate 98 98 90 Respiratory Rate Blood Pressure 126/61 126/61 132/64 Pulse Oximetry Oxygen Delivery Oxygen Flow Rate Fraction of Inspired Oxygen 07/07/24 06:00 07/07/24 06:00 07/07/24 08:00 Temperature 37.1 C Pulse Rate 90 90 88 Respiratory Rate 24 H Blood Pressure 132/64 128/64 Pulse Oximetry 94 Oxygen Delivery Oxygen Flow Rate Fraction of Inspired Oxygen 07/07/24 08:00 07/07/24 08:00 07/07/24 08:15 Temperature 36.9 C Pulse Rate 88 88 Respiratory Rate 34 H Blood Pressure 128/64 Pulse Oximetry 95 95 Oxygen Delivery High Flow Therapy with Na Oxygen Flow Rate 40 Fraction of Inspired Oxygen 30 07/07/24 08:38 07/07/24 08:38 07/07/24 08:46 Temperature Pulse Rate 87 89 Respiratory Rate 32 H 36 H Blood Pressure Pulse Oximetry 95 Oxygen Delivery High Flow Therapy with Na Oxygen Flow Rate 40 Fraction of Inspired Oxygen 30 07/07/24 10:00 Temperature 37.0 C Pulse Rate 89 Respiratory Rate 23 H Blood Pressure 131/65 Pulse Oximetry 96 Oxygen Delivery Oxygen Flow Rate Fraction of Inspired Oxygen Intake/Output Intake/Output: Intake & Output 07/04/24 07/05/24 07/06/24 07/07/24 23:59 23:59 23:59 23:59 Intake Total 1847.8667 2469.4 365.7 Output Total 900 1160 250 Balance 947.8667 1309.4 115.7 Meds/Results Medications: Active Medications Generic Name Dose Route Start Last Admin Trade Name Freq PRN Reason Stop Dose Admin Acetaminophen 650 mg 07/05/24 11:14 07/07/24 03:16 Acetaminophen 650 Mg Suppository RECTAL 650 mg Q6H PRN Administration Mild Pain (1-3) or Fever Albuterol/Ipratropium 3 ml 07/06/24 14:00 07/07/24 08:38 Ipratropium 0.5 Mg/Albuterol Sulfate 2.5 Mg Ampul.Neb 3 Ml INHALATION 3 ml Q6HRT SHAKILA Administration Aspirin 325 mg 07/06/24 08:35 07/07/24 08:44 Aspirin 325 Mg Tablet FEED TUBE 325 mg DAILY@0800 SHAKILA Administration Dextrose 12.5 gm 07/05/24 17:16 Dextrose 50% 25 Gm/50 Ml Syringe IV PUSH PRN PRN Hypoglycemia Protocol Enoxaparin Sodium 60 mg 07/06/24 21:00 07/07/24 08:44 Enoxaparin 60 Mg/0.6 Ml Syringe SUB-Q 60 mg Q12HR SHAKILA Administration Glucagon 1 mg 07/05/24 17:16 Glucagon For Inj 1 Mg Vial IM PRN PRN Hypoglycemia Protocol Glucose 15 gm 07/05/24 17:16 Glucose Oral Gel 15 Gm Of Glucse In 37.5 Gm Tube PO PRN PRN Hypoglycemia Protocol Dextrose 1,000 mls @ 100 mls/hr 07/05/24 17:16 Dextrose 5% 1,000 Ml IVPB PRN PRN Hypoglycemia Protocol Cefepime HCl 2 gm in 50 mls @ 100 mls/hr 07/06/24 00:00 07/07/24 00:35 Maxipime 2 Gm/Ns 50 Ml IVPB Infused Q12H SHAKILA Infusion Metronidazole 500 mg in 100 mls @ 100 mls/hr 07/05/24 22:00 07/07/24 08:00 Flagyl 500 Mg/Iso Soln 100 Ml IVPB Infused Q8HR SHAKILA Infusion Amiodarone HCl/Dextrose 360 mg in 200 mls @ 16.667 mls/hr 07/06/24 16:50 07/07/24 08:00 Nexterone 360 Mg/D5w 200 Ml IV CONT 07/07/24 10:49 0.5 mg/min .Q12H SHAKILA 16.67 mls/hr Infusion 0.5 MG/MIN Potassium Chloride 100 mls @ 50 mls/hr 07/07/24 10:00 07/07/24 08:00 Kcl 20 Meq/Sw 100 Ml IVPB 07/07/24 11:59 0 mls/hr ONCE ONE Infusion Insulin Aspart 2 - 5 units 07/05/24 18:00 07/07/24 08:11 Insulin Aspart (*Bkc) 100 Units/Ml SUB-Q Not Given Q6HR SHAKILA Protocol Levothyroxine Sodium 100 mcg 07/06/24 06:30 07/07/24 08:44 Levothyroxine Sodium 100 Mcg Tablet FEED TUBE 100 mcg DAILY@0630 SHAKILA Administration Memantine 5 mg 07/06/24 09:00 07/07/24 08:44 Memantine 5 Mg Tablet FEED TUBE 5 mg Q12HR SHAKILA Administration Pantoprazole Sodium 40 mg 07/06/24 09:00 07/07/24 08:44 Pantoprazole Sodium Iv 40 Mg Vial IV PUSH 40 mg QAM SHAKILA Administration Perflutren Lipid Microsphere 0 ml 07/06/24 08:31 Perflutren Lipid Microspheres 1.5 Ml Vial Diluted To 10 Ml Total Volume IV PUSH 07/09/24 08:31 ONCE PRN adequate visualization Protocol Rosuvastatin Calcium 40 mg 07/06/24 21:00 07/06/24 20:42 Rosuvastatin 20 Mg Tablet FEED TUBE Not Given HS SHAKILA Trimethobenzamide HCl 200 mg 07/06/24 18:21 07/07/24 02:14 Trimethobenzamide Hcl 200 Mg/2 Ml Vial IM 200 mg Q6H PRN Administration Nausea And Vomiting Radiology Results: ITS Impressions Chest/Abdomen/Pelvis CT 07/05/24 13:11 IMPRESSION: 1. Bilateral lower lobe pneumonia with additional small amount of pneumonia in the lingula. 2. No acute intra-abdominal/pelvic process. Abdomen X-Ray 07/07/24 06:26 Impression: NG tube remains in satisfactory position. Right-sided central venous line tip is in the right atrium or possibly just in the IVC. Consider retraction. Chest X-Ray 07/07/24 06:34 Impression: Hazy airspace disease perihilar regions and left lung base. Correlate for pulmonary edema, or possibly pneumonia. Possible underlying COPD. Support tubes, as above. Consider retraction of right subclavian line. Head CT 07/07/24 06:36 Impression: No significant abnormality seen. Case discussed with GINI العلي at 6:38 AM on 07/07/2024. Head/Neck CTA 07/07/24 06:46 Impression: High-grade, 95% stenoses at the proximal internal carotid arteries bilaterally. Probable focal occlusion at the origin of the right external carotid artery with near immediate reconstitution. ADDENDUM: 07/07/24 0714 Extensive groundglass pulmonary consolidation in the visualized lungs suggest m oderate to advanced pulmonary edema. Correlate clinically for pneumonia. Labs Labs: Laboratory Results - last 24 hr 07/06/24 07/06/24 07/06/24 10:21 11:46 17:21 WBC RBC Hgb Hct MCV MCH MCHC RDW Plt Count MPV Puncture Site Left radial ABG pH 7.415 ABG pCO2 33.7 L ABG pO2 52.9 L ABG PO2/FiO2 Ratio 1.76 ABG HCO3 21.1 L ABG O2 Saturation 88.2 L ABG O2 Content 13.7 L ABG Base Excess -2.8 A-a Gradient 121.4 Oxyhemoglobin 87.5 L* Carboxyhemoglobin Methemoglobin Reduced Hemoglobin Total Hemoglobin 11.1 L O2 Delivery Device Ventilator O2 Liters/Min Not Reportable Minute Volume Not Reportable Vent Rate Not Reportable Vent Mode Spontaneous FiO2 30 Tidal Volume Not Reportable PEEP 5 Peak Inspir Pressure Not Reportable Pressure Support 5 Sodium Potassium Chloride Carbon Dioxide Anion Gap BUN Creatinine Estim Creat Clear Calc Estimated GFR Glucose POC Capillary Glucose 103 132 H Calcium Magnesium Total Bilirubin AST ALT Alkaline Phosphatase Total Protein Albumin 07/07/24 07/07/24 07/07/24 00:33 05:00 05:01 WBC 11.0 H RBC 3.28 L Hgb 9.7 L Hct 29.7 L MCV 90.5 MCH 29.6 MCHC 32.7 RDW 17.1 H Plt Count 126 L MPV 12.0 H Puncture Site Right radial ABG pH 7.500 H ABG pCO2 26.8 L ABG pO2 60.9 L ABG PO2/FiO2 Ratio 2.03 ABG HCO3 20.4 L ABG O2 Saturation 93.7 L ABG O2 Content 14.1 L ABG Base Excess -1.7 A-a Gradient 121.5 Oxyhemoglobin 92.6 Carboxyhemoglobin 0.2 Methemoglobin 0.3 Reduced Hemoglobin 6.9 H Total Hemoglobin 10.8 L O2 Delivery Device High flow therapy O2 Liters/Min 40.0 Minute Volume Vent Rate Vent Mode FiO2 30 Tidal Volume PEEP Peak Inspir Pressure Pressure Support Sodium 140 Potassium 2.8 L* Chloride 108 H Carbon Dioxide 21 L Anion Gap 11 BUN 23 H Creatinine 0.75 Estim Creat Clear Calc 49 Estimated GFR > 60 Glucose 133 H POC Capillary Glucose 125 H Calcium 8.1 L Magnesium 1.9 Total Bilirubin 0.9 AST 77 H ALT 29 Alkaline Phosphatase 65 Total Protein 6.0 L Albumin 3.1 L
[2024-07-07] MEDS: FUROSEMIDE INJ 40 MG/4 ML VIAL IV PUSH (10:58)
[2024-07-07 11:33] LABS: Glucose Point of Care 138 mg/dl (65-105)
[2024-07-07 11:43] LABS: Toxigenic C. Diff NEGATIVE (NEGATIVE)
[2024-07-07] MEDS: ACETAMINOPHEN ELIXIR 325 MG/10.15 ML UDC 650 MG PO ×2 (12:17→20:48)
[2024-07-07 14:18] LABS: Anion Gap 9 mmol/L (4-12); Blood Urea Nitrogen 22 mg/dL (7-17); Calcium 8.4 mg/dL (8.4-10.2); Carbon Dioxide 23 mmol/L (22-30); Chloride 107 mmol/L (98-107); Estimated CRCL calculation 51 ml/min; Estimated Glomerular Filt Rate > 60; Glucose 142 mg/dL (65-110); Potassium 3.4 mmol/L (3.4-5.0); Sodium 139 mmol/L (137-145)
[2024-07-07 17:41] LABS: Glucose Point of Care 113 mg/dl (65-105)
[2024-07-07] MEDS: POTASSIUM BICARBONATE 25 MEQ TABEF 50 MEQ PO (17:50)
[2024-07-07] MEDS: ARTIFICIAL TEARS OPHTH SOLN 15 ML BOTTLE 1 DROP EACH EYE (17:50)
[2024-07-07] MEDS: PREGABALIN (*CRX) 75 MG CAPSULE 150 MG FEED TUBE (17:50)
[2024-07-07] MEDS: ROSUVASTATIN 20 MG TABLET 40 MG FEED TUBE (20:49)
[2024-07-08] VITALS (21 sets, daily range): BP systolic 106–151; BP diastolic 51–87; PULSE 88–110; RESP 16–26; TEMP 37.3–38.6; O2SAT 91–99
[2024-07-08] MEDS: CEFEPIME 2 GM/NS 50 ML 2 GM/50 ML BAG IVPB ×2 (00:35→12:17)
[2024-07-08 01:39] LABS: Glucose Point of Care 98 mg/dl (65-105)
[2024-07-08] MEDS: IPRATROPIUM 0.5 MG/ALBUTEROL SULFATE 2.5 MG AMPUL.NEB 3 ML INHALATION ×3 (01:55→20:09)
[2024-07-08] MEDS: TRIMETHOBENZAMIDE HCL 200 MG/2 ML VIAL IM ×2 (03:37→10:48)
[2024-07-08] MEDS: metroNIDAZOLE 500 MG/ISO 100ML 500 MG/100 ML BAG 100 MG IVPB ×3 (05:00→20:16)
[2024-07-08 05:38] LABS: Hematocrit 31.9 % (37.0-47.0); Hemoglobin 10.2 g/dL (12.0-15.0); Mean Corpuscular Hemoglobin 28.9 pg (26-34); Mean Corpuscular Volume 90.4 fl (80-100); Platelet Count Result 117 k/mm3 (150-375); Red Blood Count 3.53 M/mm3 (4.2-5.4); Red Cell Distribution Width 17.2 % (11.5-14.5); White Blood Count 12.4 K/mm3 (4.5-10.0)
[2024-07-08 05:47] LABS: Alanine Aminotransferase 24 U/L (6-35); Albumin Level 3.1 g/dL (3.5-5.1); Alkaline Phosphatase 68 U/L (38-126); Anion Gap 9 mmol/L (4-12); Aspartate Amino Transferase 50 U/L (14-36); Bilirubin,Total 1.1 mg/dL (0.2-1.3); Blood Urea Nitrogen 24 mg/dL (7-17); Calcium 8.2 mg/dL (8.4-10.2); Carbon Dioxide 23 mmol/L (22-30); Chloride 110 mmol/L (98-107); Estimated CRCL calculation 49 ml/min; Estimated Glomerular Filt Rate > 60; Glucose 102 mg/dL (65-110); Magnesium 1.8 mg/dL (1.6-2.3); Potassium 3.4 mmol/L (3.4-5.0); Sodium 142 mmol/L (137-145)
[2024-07-08 05:53] LABS: Alveolar/Arterial O2 Gradient 113.5 mmHg; Base Excess ABG -0.6 mEq/l (+/-2.0); Carboxyhemoglobin 0.5 % THb (0-2.0); Fractional Inspired Oxygen 30 %; Oxygen Saturation ABG 94.5 % (95.0-100.0); Oxyhemoglobin 93.2 % THb (90.0-100.0); PCO2 ABG 29.8 mmHg (35.0-45.0); PO2 ABG 65.4 mmHg (80.0-100.0); PO2 FiO2 Ratio Arterial Blood 2.18 %; Reduced Hemoglobin 6.3 %THb (0-5.0); Total Hemoglobin 11.4 g/dL (12.0-18.0); pH ABG 7.487 (7.350-7.450)
[2024-07-08 05:55] LABS: Device HIGH FLOW THERAPY; Modified Allen's Test Pass; Site Drawn RIGHT RADIAL
[2024-07-08] MEDS: MORPHINE SULFATE (*CRX) 2 MG/ML INJ IV PUSH ×6 (08:29→22:10)
[2024-07-08] MEDS: PANTOPRAZOLE SODIUM IV 40 MG VIAL IV PUSH (09:06)
[2024-07-08] MEDS: ENOXAPARIN 60 MG/0.6 ML SYRINGE SUB-Q ×2 (09:07→20:16)
[2024-07-08] MEDS: ASPIRIN 325 MG TABLET FEED TUBE (09:07)
[2024-07-08] MEDS: PREGABALIN (*CRX) 75 MG CAPSULE 150 MG FEED TUBE ×2 (09:07→20:17)
[2024-07-08] MEDS: KCL 40 MEQ/WATER 100 ML 100 ML 25 ML IVPB ×2 (09:07→16:41)
[2024-07-08 11:01] LABS: Glucose Point of Care 98 mg/dl (65-105)
--- NOTE | 2024-07-08 11:03 | WPDINTPN ---
Progress Note: A&P Assessment and Plan (1) Acute respiratory failure with hypoxia: Code(s): J96.01 - Acute respiratory failure with hypoxia Status: Acute Assessment and Plan: Acute respiratory failure secondary to pneumonia which is likely aspiration CT scan chest x-ray and ABG reviewed Patient was extubated yesterday after a successful weaning trial. Post that patient was tachypneic and was placed on BiPAP for work of breathing and respiratory support BiPAP had to be discontinued due to nausea. Now she has Vapotherm at 40 L and 30% FiO2 will try to wean her off to nasal cannula She does have some tachypnea but ABG shows hyperventilation and patient does not appear in distress with no use of accessory muscle Continue current management Add incentive spirometry and EzPAP Continue IV Lasix (2) Septic shock: Code(s): A41.9 - Sepsis, unspecified organism; R65.21 - Severe sepsis with septic shock Status: Acute Assessment and Plan: Septic shock secondary to aspiration pneumonia and UTI Continue cefepime and Flagyl. Discontinue vancomycin MRSA screen negative, blood and urine cultures have been sent and are pending patient does have E coli history which was not ESBL Off Levophed and IV fluid (3) Abdominal pain: Code(s): R10.9 - Unspecified abdominal pain Status: Acute Assessment and Plan: Complains of nonspecific abdominal pain. Also has nausea vomit History of bowel obstruction and surgery Will obtain CT scan of the chest abdomen pelvis Continue NG tube Consult general surgery May need to start TPN (4) Pneumonia: Code(s): J18.9 - Pneumonia, unspecified organism Status: Acute Assessment and Plan: See above (5) Hyperlipidemia: Code(s): E78.5 - Hyperlipidemia, unspecified Status: Acute Assessment and Plan: Rosuvastatin (6) Diabetes mellitus: Code(s): E11.9 - Type 2 diabetes mellitus without complications Status: Acute Assessment and Plan: Sliding scale insulin (7) Nausea & vomiting: Code(s): R11.2 - Nausea with vomiting, unspecified Status: Acute Assessment and Plan: NG tube in placed and hooked up to low intermittent suction Patient has chronic nausea vomit CT abdomen at the present time does not show any evidence of obstruction Repeat CT scans ordered (8) UTI (urinary tract infection): Qualifiers: Hematuria presence: with hematuria Urinary tract infection type: acute cystitis Qualified Code(s): N30.01 - Acute cystitis with hematuria Code(s): N39.0 - Urinary tract infection, site not specified Status: Acute Assessment and Plan: Antibiotics as above (9) Elevated troponin: Code(s): R79.89 - Other specified abnormal findings of blood chemistry Status: Acute Assessment and Plan: Patient presented with elevated troponin which peaked at 3.1 and now is trending down This appears to be type 2 non STEMI likely secondary to respiratory failure and septic shock. EKG was done and does not show any signs of ischemia. Patient did not complain of any chest pain at the time of presentation Continue aspirin and statin Pending echocardiogram Cardiology following Continue therapeutic dose Lovenox as per Cardiology recommended (10) Atrial fibrillation: Code(s): I48.91 - Unspecified atrial fibrillation Status: Acute Assessment and Plan: Patient went into AFib with ventricular rate is mostly controlled. Patient for also on Levophed. Patient was started therapeutic dose Lovenox and amiodarone infuse Patient has now converted to sinus rhythm. Amiodarone will be discontinued today (11) Electrolyte abnormality: Code(s): E87.8 - Other disorders of electrolyte and fluid balance, not elsewhere classified Status: Acute Assessment and Plan: Potassium replacement ordered (12) Anisocoria: Code(s): H57.02 - Anisocoria Status: Acute Assessment and Plan: Left pupil is larger than right but reactive to light Patient has had shingles in around left eye and chronic pain. She has had bilateral eye surgeries. 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 Probable focal occlusion at the origin of the right external carotid artery with near immediate reconstitution. Plan DVT prophylaxis -Lovenox Stress ulcer prophylaxis -PPI Nutrition -npo Code Status -patient's confirms patient code status to DNR. 07/07 I spoke to patient's and daughter at bedside and updated them with patient's status and answered all their questions. 07/08 I spoke to patient's and updated him with patient's current status and treatment plan. I answered all his questions Case discussed with Cardiology Total Critical Care Time - 35 minutes Due to a high probability of clinically significant, life threatening deterioration, the patient required my highest level of preparedness to intervene emergently and I personally spent this critical care time directly and personally managing the patient. This critical care time included obtaining a history; examining the patient; pulse oximetry; ordering and review of studies; arranging urgent treatment with development of a management plan; evaluation of patient's response to treatment; frequent reassessment; and discussions with other providers. It was exclusive of separately billable procedures and treating other patients and teaching time. Please see Assessment and Plan section and the rest of the note for further information on patient assessment and treatment Subjective Date/time seen: 07/08/24 Overnight events reviewed. febrile Continues to be on Vapotherm NG tube in place but not significant output Complains of abdominal pain. Unable to tell me quality or severity the pain but points towards the whole belly. Continues to complain nausea vomiting. Denies any shortness of breath or chest pain. Has weak cough all other systems were reviewed and were negative She is having bowel movements Good urine output Other vitals acceptable Review of Systems Review of Systems: All systems reviewed & are unremarkable except as noted in HPI and below (HPI) Exam Narrative: General: Pt is alert awake Lungs/Chest: Trachea central Coarse BS B/L, No crackles or wheezing. Mild tachypnea but no respiratory distress or use of accessory muscle Cardiac: RRR. Normal S1 S2. No murmurs Circulation: Pedal pulses are intact and symmetrical. Abdomen: Present bowel sounds. Soft. Mild diffuse tenderness to palpation ND. No guarding. NG tube in place with bilious output Extremities: No clubbing, cyanosis or edema. Warm : Jones in place Neurologic: AO x2. Left pupil is enlarged but reactive to light. Patient's states the patient has had eye surgeries and was side and also had multiple injections for trigeminal nerve pain on the left side and had shingles Objective Data Vital Signs Vital Signs: Vital Signs - 24 hr 07/07/24 12:00 07/07/24 12:00 07/07/24 12:00 Temperature 37.1 C Pulse Rate 89 92 Respiratory Rate 30 H Blood Pressure 139/53 L Pulse Oximetry 93 96 Oxygen Delivery High Flow Therapy with Na Oxygen Flow Rate 40 Fraction of Inspired Oxygen 30 07/07/24 13:56 07/07/24 13:56 07/07/24 14:00 Temperature Pulse Rate 85 90 Respiratory Rate 28 H Blood Pressure Pulse Oximetry 95 Oxygen Delivery High Flow Therapy with Na Oxygen Flow Rate 40 Fraction of Inspired Oxygen 31 07/07/24 14:00 07/07/24 14:06 07/07/24 16:00 Temperature 36.9 C Pulse Rate 88 88 Respiratory Rate 23 H 28 H Blood Pressure 138/76 Pulse Oximetry 97 96 Oxygen Delivery High Flow Therapy with Na Oxygen Flow Rate 40 Fraction of Inspired Oxygen 30 07/07/24 16:00 07/07/24 16:00 07/07/24 17:27 Temperature 37.1 C Pulse Rate 89 88 97 Respiratory Rate 31 H 28 H Blood Pressure 123/56 L Pulse Oximetry 97 99 Oxygen Delivery High Flow Therapy with Na Oxygen Flow Rate 40 Fraction of Inspired Oxygen 31 07/07/24 18:00 07/07/24 18:00 07/07/24 20:00 Temperature 37.4 C Pulse Rate 90 98 Respiratory Rate 22 H Blood Pressure 149/137 H Pulse Oximetry 100 98 Oxygen Delivery High Flow Therapy with Na Oxygen Flow Rate 40 Fraction of Inspired Oxygen 30 07/07/24 20:00 07/07/24 20:00 07/07/24 20:34 Temperature 38.0 C H Pulse Rate 92 92 87 Respiratory Rate 14 27 H Blood Pressure 143/82 H Pulse Oximetry 97 Oxygen Delivery Oxygen Flow Rate Fraction of Inspired Oxygen 07/07/24 20:36 07/07/24 20:48 07/07/24 21:45 Temperature 38.1 C H 38.2 C H Pulse Rate Respiratory Rate 27 H Blood Pressure Pulse Oximetry 99 Oxygen Delivery High Flow Therapy with Na Oxygen Flow Rate 40 Fraction of Inspired Oxygen 31 07/07/24 22:00 07/07/24 22:00 07/07/24 23:40 Temperature 38.3 C H Pulse Rate 94 99 Respiratory Rate 22 H Blood Pressure 130/74 Pulse Oximetry 99 98 Oxygen Delivery High Flow Therapy with Na Oxygen Flow Rate 40 Fraction of Inspired Oxygen 30 07/08/24 00:00 07/08/24 00:00 07/08/24 01:56 Temperature 37.9 C H Pulse Rate 90 88 Respiratory Rate 23 H 25 H Blood Pressure 106/51 L Pulse Oximetry 98 Oxygen Delivery Oxygen Flow Rate Fraction of Inspired Oxygen 07/08/24 02:00 07/08/24 02:00 07/08/24 02:04 Temperature 37.5 C Pulse Rate 90 88 Respiratory Rate 19 21 H Blood Pressure 126/66 Pulse Oximetry 99 Oxygen Delivery Oxygen Flow Rate Fraction of Inspired Oxygen 07/08/24 04:00 07/08/24 04:00 07/08/24 04:00 Temperature 37.3 C Pulse Rate 95 88 Respiratory Rate 17 Blood Pressure 130/70 Pulse Oximetry 99 99 Oxygen Delivery High Flow Therapy with Na Oxygen Flow Rate 40 Fraction of Inspired Oxygen 30 07/08/24 04:11 Temperature Pulse Rate 89 Respiratory Rate Blood Pressure Pulse Oximetry Oxygen Delivery Oxygen Flow Rate Fraction of Inspired Oxygen Intake/Output Intake/Output: Intake & Output 07/05/24 07/06/24 07/07/24 07/08/24 23:59 23:59 23:59 23:59 Intake Total 1847.8667 2469.4 866.5 50 Output Total 900 1160 2300 650 Balance 947.8667 1309.4 -1433.5 -600 Meds/Results Medications: Active Medications Generic Name Dose Route Start Last Admin Trade Name Freq PRN Reason Stop Dose Admin Acetaminophen 650 mg 07/07/24 12:10 07/07/24 20:48 Acetaminophen Elixir 325 Mg/10.15 Ml Udc PO 650 mg Q6H PRN Administration Mild Pain (1-3) or Fever Albuterol/Ipratropium 3 ml 07/06/24 14:00 07/08/24 01:55 Ipratropium 0.5 Mg/Albuterol Sulfate 2.5 Mg Ampul.Neb 3 Ml INHALATION 3 ml Q6HRT SHAKILA Administration Artificial Tears 1 drop 07/07/24 12:23 07/07/24 17:50 Artificial Tears Ophth Soln 15 Ml Bottle EACH EYE 1 drop QID PRN Administration Dry Eye(s) Aspirin 325 mg 07/06/24 08:35 07/08/24 09:07 Aspirin 325 Mg Tablet FEED TUBE 325 mg DAILY@0800 SHAKILA Administration Dextrose 12.5 gm 07/05/24 17:16 Dextrose 50% 25 Gm/50 Ml Syringe IV PUSH PRN PRN Hypoglycemia Protocol Enoxaparin Sodium 60 mg 07/06/24 21:00 07/08/24 09:07 Enoxaparin 60 Mg/0.6 Ml Syringe SUB-Q 60 mg Q12HR SHAKILA Administration Furosemide 40 mg 07/08/24 11:00 Furosemide Inj 40 Mg/4 Ml Vial IV PUSH 07/08/24 11:01 ONCE ONE Glucagon 1 mg 07/05/24 17:16 Glucagon For Inj 1 Mg Vial IM PRN PRN Hypoglycemia Protocol Glucose 15 gm 07/05/24 17:16 Glucose Oral Gel 15 Gm Of Glucse In 37.5 Gm Tube PO PRN PRN Hypoglycemia Protocol Dextrose 1,000 mls @ 100 mls/hr 07/05/24 17:16 Dextrose 5% 1,000 Ml IVPB PRN PRN Hypoglycemia Protocol Cefepime HCl 2 gm in 50 mls @ 100 mls/hr 07/06/24 00:00 07/08/24 02:11 Maxipime 2 Gm/Ns 50 Ml IVPB Infused Q12H SHAKILA Infusion Metronidazole 500 mg in 100 mls @ 100 mls/hr 07/05/24 22:00 07/08/24 05:00 Flagyl 500 Mg/Iso Soln 100 Ml IVPB 100 mls/hr Q8HR SHAKILA Administration Potassium Chloride 100 mls @ 25 mls/hr 07/08/24 08:16 07/08/24 09:07 Kcl 40 Meq/Water 100 Ml IVPB 07/08/24 12:15 25 mls/hr ONCE ONE Administration Insulin Aspart 2 - 5 units 07/05/24 18:00 07/08/24 06:45 Insulin Aspart (*Bkc) 100 Units/Ml SUB-Q Not Given Q6HR [facility] Protocol Levothyroxine Sodium 100 mcg 07/06/24 06:30 07/08/24 06:45 Levothyroxine Sodium 100 Mcg Tablet FEED TUBE Not Given DAILY@0630 SHAKILA Morphine Sulfate 2 mg 07/08/24 08:18 07/08/24 10:46 Morphine Sulfate (*Crx) 2 Mg/Ml Inj IV PUSH 2 mg Q2H PRN Administration Pain Rated 7-10 Pantoprazole Sodium 40 mg 07/06/24 09:00 07/08/24 09:06 Pantoprazole Sodium Iv 40 Mg Vial IV PUSH 40 mg QAM SHAKILA Administration Perflutren Lipid Microsphere 0 ml 07/06/24 08:31 Perflutren Lipid Microspheres 1.5 Ml Vial Diluted To 10 Ml Total Volume IV PUSH 07/09/24 08:31 ONCE PRN adequate visualization Protocol Pregabalin 150 mg 07/07/24 21:00 07/08/24 09:07 Pregabalin (*Crx) 75 Mg Capsule FEED TUBE 150 mg Q12HR SHAKILA Administration Rosuvastatin Calcium 40 mg 07/06/24 21:00 07/07/24 20:49 Rosuvastatin 20 Mg Tablet FEED TUBE 40 mg HS SHAKILA Administration Sodium Chloride 10 ml 07/08/24 14:00 Central Line Flush IV PUSH Q8HR SHAKILA Sodium Chloride 20 ml 07/08/24 10:15 Central Line Flush IV PUSH PRN PRN after blood draws Trimethobenzamide HCl 200 mg 07/06/24 18:21 07/08/24 10:48 Trimethobenzamide Hcl 200 Mg/2 Ml Vial IM 200 mg Q6H PRN Administration Nausea And Vomiting Radiology Results: ITS Impressions Abdomen X-Ray 07/07/24 06:26 Impression: NG tube remains in satisfactory position. Right-sided central venous line tip is in the right atrium or possibly just in the IVC. Consider retraction. Head CT 07/07/24 06:36 Impression: No significant abnormality seen. Case discussed with GINI العلي at 6:38 AM on 07/07/2024. Head/Neck CTA 07/07/24 06:46 Impression: High-grade, 95% stenoses at the proximal internal carotid arteries bilaterally. Probable focal occlusion at the origin of the right external carotid artery with near immediate reconstitution. ADDENDUM: 07/07/24 0714 Extensive groundglass pulmonary consolidation in the visualized lungs suggest moderate to advanced pulmonary edema. Correlate clinically for pneumonia. Chest X-Ray 07/08/24 06:12 Impression: Worsening moderate pulmonary edema pattern. Support tubes are unchanged. Right subclavian line tip is in the inferior right atrium. Labs Labs: Laboratory Results - last 24 hr 07/07/24 07/07/24 07/07/24 10:40 11:19 13:59 WBC RBC Hgb Hct MCV MCH MCHC RDW Plt Count MPV Puncture Site ABG pH ABG pCO2 ABG pO2 ABG PO2/FiO2 Ratio ABG HCO3 ABG O2 Saturation ABG O2 Content ABG Base Excess A-a Gradient Oxyhemoglobin Carboxyhemoglobin Methemoglobin Reduced Hemoglobin Total Hemoglobin O2 Delivery Device O2 Liters/Min FiO2 Sodium 139 Potassium 3.4 Chloride 107 Carbon Dioxide 23 Anion Gap 9 BUN 22 H Creatinine 0.72 Estim Creat Clear Calc 51 Estimated GFR > 60 Glucose 142 H POC Capillary Glucose 138 H Calcium 8.4 Magnesium Total Bilirubin AST ALT Alkaline Phosphatase Total Protein Albumin C. difficile (PCR) Negative 07/07/24 07/08/2425 17:39 00:48 04:56 WBC 12.4 H RBC 3.53 L Hgb 10.2 L Hct 31.9 L MCV 90.4 MCH 28.9 MCHC 32.0 RDW 17.2 H Plt Count 117 L MPV 12.0 H Puncture Site ABG pH ABG pCO2 ABG pO2 ABG PO2/FiO2 Ratio ABG HCO3 ABG O2 Saturation ABG O2 Content ABG Base Excess A-a Gradient Oxyhemoglobin Carboxyhemoglobin Methemoglobin Reduced Hemoglobin Total Hemoglobin O2 Delivery Device O2 Liters/Min FiO2 Sodium 142 Potassium 3.4 Chloride 110 H Carbon Dioxide 23 Anion Gap 9 BUN 24 H Creatinine 0.76 Estim Creat Clear Calc 49 Estimated GFR > 60 Glucose 102 POC Capillary Glucose 113 H 98 Calcium 8.2 L Magnesium 1.8 Total Bilirubin 1.1 AST 50 H ALT 24 Alkaline Phosphatase 68 Total Protein 6.0 L Albumin 3.1 L C. difficile (PCR) 07/08/24 07/08/24 05:44 10:58 WBC RBC Hgb Hct MCV MCH MCHC RDW Plt Count MPV Puncture Site Right radial ABG pH 7.487 H ABG pCO2 29.8 L ABG pO2 65.4 L ABG PO2/FiO2 Ratio 2.18 ABG HCO3 22.0 ABG O2 Saturation 94.5 L ABG O2 Content 15.0 L ABG Base Excess -0.6 A-a Gradient 113.5 Oxyhemoglobin 93.2 Carboxyhemoglobin 0.5 Methemoglobin 0.0 Reduced Hemoglobin 6.3 H Total Hemoglobin 11.4 L O2 Delivery Device High flow therapy O2 Liters/Min 40.0 FiO2 30 Sodium Potassium Chloride Carbon Dioxide Anion Gap BUN Creatinine Estim Creat Clear Calc Estimated GFR Glucose POC Capillary Glucose 98 Calcium Magnesium Total Bilirubin AST ALT Alkaline Phosphatase Total Protein Albumin C. difficile (PCR) Quality VTE Prophylaxis VTE prophylaxis: pharmacologic ordered
[2024-07-08] MEDS: FUROSEMIDE INJ 40 MG/4 ML VIAL IV PUSH (12:17)
--- NOTE | 2024-07-08 12:38 | PM.PNCARD ---
Progress Note: A&P Assessment and Plan (1) Elevated troponin: Code(s): R79.89 - Other specified abnormal findings of blood chemistry Status: Acute (2) Hyperlipidemia: Code(s): E78.5 - Hyperlipidemia, unspecified Status: Acute (3) Essential hypertension: Code(s): I10 - Essential (primary) hypertension Status: Acute Plan Elevated troponin, probable type 2 NSTEMI Paroxysmal atrial fibrillation, new diagnosis. Acute on chronic heart failure with preserved LVEF. Back pain Acute hypoxic respiratory failure s/p intubated and sedated secondary to pneumonia; CT chest showed pneumonia Hypokalemia Hypomagnesemia Sepsis secondary to UTI and pneumonia - on broad-spectrum antibiotics Septic shock requiring Levophed DM HTN Hyperlipidemia Plan: -Given patient had no complaints of chest pain prior to admission, the rise in troponin is most likely type 2 TN with supply demand mismatch due to stress of acute illness. Troponin has peaked and is now downtrending. EKG is sinus rhythm with possible old anterior infarction and no new ischemic changes. Recommend continuing medical management with aspirin, statin. Once patient recovers from her acute illness, recommend further coronary evaluation with an outpatient stress test -Regarding paroxysmal atrial fibrillation, this appears to be a new diagnosis. As patient now in sinus rhythm, Amiodarone drip stopped and will start on PO Amiodarone. Will need anticoagulation for stroke prophylaxis when stable. -TTE shows LVEF 50-55%. Has pulmonary edema and pleural effusions. Agree with intermittent IV Lasix. -No BB or other blood pressure lowering meds given hypotension earlier in hospitalization. -Check and replace electrolytes as needed keeping K>4 and Mg>2 -Management of non cardiac medical problems per primary ICU team Recommendations and plan discussed with Hospitalist. Subjective Date/time seen: 07/08/24 12:38 Interval history: Reason for visit: HPI: 73-year-old female with history of shingles face, diabetes, hypothyroidism, hypertension, hyperlipidemia, breast cancer, and MGUS presents to the hospital with fever 102.4 and shortness of breath. Patient was intubated emergently in the ED for respiratory failure and is unable to provide any history. History is obtained from patient's and the medical chart. Per the the patient was complaining of severe back pain yesterday but no respiratory symptoms. He states that she was able to cook, clean, do laundry, and she even up and down stairs. She had an emesis this morning when she woke up and had more emesis after going back to bed. He called 911 due to patient having trouble breathing. Per EMS patient's SpO2 was 70% and she was placed on non-rebreather. In the ER patient was on 15 L non-rebreather with SpO2 in the low 90s and respiratory rate of 40 for which she was emergently intubated. Labs showed a potassium of 2.9, lactic acid of 3.5, magnesium 1.5, and troponin of 0.747, then 2.2. EKG showed sinus tachycardia with occasional PVCs, T-wave abnormality, heart rate 117, QTC 611. UA was negative for nitrates but had 1+ leukocyte esterase. Influenza A B, COVID, and RSV were negative. Blood cultures were drawn and pending. In the ED the patient was given IV Flagyl, vancomycin, 2 g magnesium, 20 millimoles of potassium phosphate. Patient was hypotensive after bolus of IV fluids were administered and she was started on Levophed. Cardiology was consulted given elevated troponin. Date of service 07/06: Troponin increased to 2.2, 2.9 and peaked at 3.1 and is now down trending to 2.8. Patient is intubated and unable to elicit any history from her. Tele shows sinus rhythm. Date of service 07/07: Noticed to have an unequal pupil size this morning, [facility] was called. Head CT showed no significant abnormality. CTA Head and Neck showed high-grade 95% stenosis at the proximal internal carotid arteries bilaterally. Probable focal occlusion at the origin of the right external carotid artery with near immediate reconstitution. Tele shows sinus rhythm, had some AFIB yesterday. Currently on Amiodarone drip. Date of service 07/08: Currently in sinus rhythm. Review of Systems Review of Systems: ROS unobtainable: Yes unobtainable due to medical condition and unobtainable due to mental status Exam Const: Other: Ill appearing female HENMT: Other: NG tube in place Resp: Other: On HFNC Cardio: Rate: regular rate Rhythm: regular rhythm Objective Data Vital Signs Vital Signs: Vital Signs - 24 hr 07/07/24 13:56 07/07/24 13:56 07/07/24 14:00 Temperature Pulse Rate 85 90 Respiratory Rate 28 H Blood Pressure Pulse Oximetry 95 Oxygen Delivery High Flow Therapy with Na Oxygen Flow Rate 40 Fraction of Inspired Oxygen 31 07/07/24 14:00 07/07/24 14:06 07/07/24 16:00 Temperature 36.9 C Pulse Rate 88 88 Respiratory Rate 23 H 28 H Blood Pressure 138/76 Pulse Oximetry 97 96 Oxygen Delivery High Flow Therapy with Na Oxygen Flow Rate 40 Fraction of Inspired Oxygen 30 07/07/24 16:00 07/07/24 16:00 07/07/24 17:27 Temperature 37.1 C Pulse Rate 89 88 97 Respiratory Rate 31 H 28 H Blood Pressure 123/56 L Pulse Oximetry 97 99 Oxygen Delivery High Flow Therapy with Na Oxygen Flow Rate 40 Fraction of Inspired Oxygen 31 07/07/24 18:00 07/07/24 18:00 07/07/24 20:00 Temperature 37.4 C Pulse Rate 90 98 Respiratory Rate 22 H Blood Pressure 149/137 H Pulse Oximetry 100 98 Oxygen Delivery High Flow Therapy with Na Oxygen Flow Rate 40 Fraction of Inspired Oxygen 30 07/07/24 20:00 07/07/24 20:00 07/07/24 20:34 Temperature 38.0 C H Pulse Rate 92 92 87 Respiratory Rate 14 27 H Blood Pressure 143/82 H Pulse Oximetry 97 Oxygen Delivery Oxygen Flow Rate Fraction of Inspired Oxygen 07/07/24 20:36 07/07/24 20:48 07/07/24 21:45 Temperature 38.1 C H 38.2 C H Pulse Rate Respiratory Rate 27 H Blood Pressure Pulse Oximetry 99 Oxygen Delivery High Flow Therapy with Na Oxygen Flow Rate 40 Fraction of Inspired Oxygen 31 07/07/24 22:00 07/07/24 22:00 07/07/24 23:40 Temperature 38.3 C H Pulse Rate 94 99 Respiratory Rate 22 H Blood Pressure 130/74 Pulse Oximetry 99 98 Oxygen Delivery High Flow Therapy with Na Oxygen Flow Rate 40 Fraction of Inspired Oxygen 30 07/08/24 00:00 07/08/24 00:00 07/08/24 01:56 Temperature 37.9 C H Pulse Rate 90 88 Respiratory Rate 23 H 25 H Blood Pressure 106/51 L Pulse Oximetry 98 Oxygen Delivery Oxygen Flow Rate Fraction of Inspired Oxygen 07/08/24 02:00 07/08/24 02:00 07/08/24 02:04 Temperature 37.5 C Pulse Rate 90 88 Respiratory Rate 19 21 H Blood Pressure 126/66 Pulse Oximetry 99 Oxygen Delivery Oxygen Flow Rate Fraction of Inspired Oxygen 07/08/24 04:00 07/08/24 04:00 07/08/24 04:00 Temperature 37.3 C Pulse Rate 95 88 Respiratory Rate 17 Blood Pressure 130/70 Pulse Oximetry 99 99 Oxygen Delivery High Flow Therapy with Na Oxygen Flow Rate 40 Fraction of Inspired Oxygen 30 07/08/24 04:11 07/08/24 08:00 07/08/24 08:00 Temperature Pulse Rate 89 108 H Respiratory Rate Blood Pressure Pulse Oximetry 93 Oxygen Delivery High Flow Therapy with Na Oxygen Flow Rate 40 Fraction of Inspired Oxygen 30 07/08/24 08:00 07/08/24 10:00 07/08/24 10:00 Temperature 38.2 C H Pulse Rate 110 H 92 92 Respiratory Rate 21 H 22 H Blood Pressure 133/70 134/74 Pulse Oximetry 91 93 Oxygen Delivery Oxygen Flow Rate Fraction of Inspired Oxygen Intake/Output Intake/Output: Intake & Output 07/05/24 07/06/24 07/07/24 07/08/24 23:59 23:59 23:59 23:59 Intake Total 1847.8667 2469.4 866.5 50 Output Total 900 1160 2300 650 Balance 947.8667 1309.4 -1433.5 -600 Meds/Results Medications: Active Medications Generic Name Dose Route Start Last Admin Trade Name Freq PRN Reason Stop Dose Admin Acetaminophen 650 mg 07/07/24 12:10 07/07/24 20:48 Acetaminophen Elixir 325 Mg/10.15 Ml Udc PO 650 mg Q6H PRN Administration Mild Pain (1-3) or Fever Albuterol/Ipratropium 3 ml 07/06/24 14:00 07/08/24 11:38 Ipratropium 0.5 Mg/Albuterol Sulfate 2.5 Mg Ampul.Neb 3 Ml INHALATION Not Given Q6HRT [facility] Artificial Tears 1 drop 07/07/24 12:23 07/07/24 17:50 Artificial Tears Ophth Soln 15 Ml Bottle EACH EYE 1 drop QID PRN Administration Dry Eye(s) Aspirin 325 mg 07/06/24 08:35 07/08/24 09:07 Aspirin 325 Mg Tablet FEED TUBE 325 mg DAILY@0800 [facility] Administration Dextrose 12.5 gm 07/05/24 17:16 Dextrose 50% 25 Gm/50 Ml Syringe IV PUSH PRN PRN Hypoglycemia Protocol Enoxaparin Sodium 60 mg 07/06/24 21:00 07/08/24 09:07 Enoxaparin 60 Mg/0.6 Ml Syringe SUB-Q 60 mg Q12HR SHAKILA Administration Glucagon 1 mg 07/05/24 17:16 Glucagon For Inj 1 Mg Vial IM PRN PRN Hypoglycemia Protocol Glucose 15 gm 07/05/24 17:16 Glucose Oral Gel 15 Gm Of Glucse In 37.5 Gm Tube PO PRN PRN Hypoglycemia Protocol Dextrose 1,000 mls @ 100 mls/hr 07/05/24 17:16 Dextrose 5% 1,000 Ml IVPB PRN PRN Hypoglycemia Protocol Cefepime HCl 2 gm in 50 mls @ 100 mls/hr 07/06/24 00:00 07/08/24 12:17 Maxipime 2 Gm/Ns 50 Ml IVPB 100 mls/hr Q12H SHAKILA Administration Metronidazole 500 mg in 100 mls @ 100 mls/hr 07/05/24 22:00 07/08/24 05:00 Flagyl 500 Mg/Iso Soln 100 Ml IVPB 100 mls/hr Q8HR SHAKILA Administration Insulin Aspart 2 - 5 units 07/05/24 18:00 07/08/24 11:39 Insulin Aspart (*Bkc) 100 Units/Ml SUB-Q Not Given Q6HR SHAKILA Protocol Levothyroxine Sodium 100 mcg 07/06/24 06:30 07/08/24 06:45 Levothyroxine Sodium 100 Mcg Tablet FEED TUBE Not Given DAILY@0630 [facility]A Morphine Sulfate 2 mg 07/08/24 08:18 07/08/24 10:46 Morphine Sulfate (*Crx) 2 Mg/Ml Inj IV PUSH 2 mg Q2H PRN Administration Pain Rated 7-10 Pantoprazole Sodium 40 mg 07/06/24 09:00 07/08/24 09:06 Pantoprazole Sodium Iv 40 Mg Vial IV PUSH 40 mg QAM SHAKILA Administration Perflutren Lipid Microsphere 0 ml 07/06/24 08:31 Perflutren Lipid Microspheres 1.5 Ml Vial Diluted To 10 Ml Total Volume IV PUSH 07/09/24 08:31 ONCE PRN adequate visualization Protocol Pregabalin 150 mg 07/07/24 21:00 07/08/24 09:07 Pregabalin (*Crx) 75 Mg Capsule FEED TUBE 150 mg Q12HR SHAKILA Administration Rosuvastatin Calcium 40 mg 07/06/24 21:00 07/07/24 20:49 Rosuvastatin 20 Mg Tablet FEED TUBE 40 mg HS SHAKILA Administration Sodium Chloride 10 ml 07/08/24 14:00 Central Line Flush IV PUSH Q8HR SHAKILA Sodium Chloride 20 ml 07/08/24 10:15 Central Line Flush IV PUSH PRN PRN after blood draws Trimethobenzamide HCl 200 mg 07/06/24 18:21 07/08/24 10:48 Trimethobenzamide Hcl 200 Mg/2 Ml Vial IM 200 mg Q6H PRN Administration Nausea And Vomiting Radiology Results: ITS Impressions Abdomen X-Ray 07/07/24 06:26 Impression: NG tube remains in satisfactory position. Right-sided central venous line tip is in the right atrium or possibly just in the IVC. Consider retraction. Head CT 07/07/24 06:36 Impression: No significant abnormality seen. Case discussed with GINI العلي at 6:38 AM on 07/07/2024. Head/Neck CTA 07/07/24 06:46 Impression: High-grade, 95% stenoses at the proximal internal carotid arteries bilaterally. Probable focal occlusion at the origin of the right external carotid artery with near immediate reconstitution. ADDENDUM: 07/07/24 0714 Extensive groundglass pulmonary consolidation in the visualized lungs suggest moderate to advanced pulmonary edema. Correlate clinically for pneumonia. Chest X-Ray 07/08/24 06:12 Impression: Worsening moderate pulmonary edema pattern. Support tubes are unchanged. Right subclavian line tip is in the inferior right atrium. Labs Labs: Laboratory Results - last 24 hr 07/07/24 07/07/24 07/08/24 13:59 17:39 00:48 WBC RBC Hgb Hct MCV MCH MCHC RDW Plt Count MPV Puncture Site ABG pH ABG pCO2 ABG pO2 ABG PO2/FiO2 Ratio ABG HCO3 ABG O2 Saturation ABG O2 Content ABG Base Excess A-a Gradient Oxyhemoglobin Carboxyhemoglobin Methemoglobin Reduced Hemoglobin Total Hemoglobin O2 Delivery Device O2 Liters/Min FiO2 Sodium 139 Potassium 3.4 Chloride 107 Carbon Dioxide 23 Anion Gap 9 BUN 22 H Creatinine 0.72 Estim Creat Clear Calc 51 Estimated GFR > 60 Glucose 142 H POC Capillary Glucose 113 H 98 Calcium 8.4 Magnesium Total Bilirubin AST ALT Alkaline Phosphatase Total Protein Albumin 07/08/24 07/08/24 07/08/24 04:56 05:44 10:58 WBC 12.4 H RBC 3.53 L Hgb 10.2 L Hct 31.9 L MCV 90.4 MCH 28.9 MCHC 32.0 RDW 17.2 H Plt Count 117 L MPV 12.0 H Puncture Site Right radial ABG pH 7.487 H ABG pCO2 29.8 L ABG pO2 65.4 L ABG PO2/FiO2 Ratio 2.18 ABG HCO3 22.0 ABG O2 Saturation 94.5 L ABG O2 Content 15.0 L ABG Base Excess -0.6 A-a Gradient 113.5 Oxyhemoglobin 93.2 Carboxyhemoglobin 0.5 Methemoglobin 0.0 Reduced Hemoglobin 6.3 H Total Hemoglobin 11.4 L O2 Delivery Device High flow therapy O2 Liters/Min 40.0 FiO2 30 Sodium 142 Potassium 3.4 Chloride 110 H Carbon Dioxide 23 Anion Gap 9 BUN 24 H Creatinine 0.76 Estim Creat Clear Calc 49 Estimated GFR > 60 Glucose 102 POC Capillary Glucose 98 Calcium 8.2 L Magnesium 1.8 Total Bilirubin 1.1 AST 50 H ALT 24 Alkaline Phosphatase 68 Total Protein 6.0 L Albumin 3.1 L
[2024-07-08] MEDS: CENTRAL LINE FLUSH 10 ML IV PUSH ×2 (14:05→20:17)
[2024-07-08 15:37] LABS: Anion Gap 9 mmol/L (4-12); Blood Urea Nitrogen 23 mg/dL (7-17); Calcium 8.9 mg/dL (8.4-10.2); Carbon Dioxide 24 mmol/L (22-30); Chloride 110 mmol/L (98-107); Estimated CRCL calculation 49 ml/min; Estimated Glomerular Filt Rate > 60; Glucose 100 mg/dL (65-110); Potassium 3.6 mmol/L (3.4-5.0); Sodium 143 mmol/L (137-145)
--- NOTE | 2024-07-08 16:24 | PM.CNGS ---
Assessment and Plan Assessment and plan (1) Nausea & vomiting: Code(s): R11.2 - Nausea with vomiting, unspecified Status: Acute Assessment and Plan: Patient has been admitted with sepsis, UTI, pneumonia and acute respiratory failure. She was extubated yesterday. She continues to have chronic issues with nausea and vomiting, and is complaining of diffuse abdominal pain. Initial CT scan and her repeat CT of the abdomen and pelvis today show no acute intra-abdominal findings that would cause her symptoms. She does not have any evidence of a bowel obstruction or any other surgical indication for her symptoms. Her previous surgery was complex with extensive adhesiolysis and extended recovery. She is an overall poor surgical candidate and would likely not be a candidate for any additional surgery even if she were to develop evidence of an obstruction. We would recommend to continue with supportive care and could consider GI consultation for the chronic nausea and vomiting. We will sign off at this time with no surgical indications. Call with any future surgical concerns or questions. (2) Pneumonia: Code(s): J18.9 - Pneumonia, unspecified organism Status: Acute (3) Acute respiratory failure with hypoxia: Code(s): J96.01 - Acute respiratory failure with hypoxia Status: Acute (4) Sepsis: Code(s): A41.9 - Sepsis, unspecified organism Status: Acute Plan I have discussed the patient's case and plan of care with Dr. Friend. History of Present Illness Consult details Consult date: 07/08/24 Reason for consult: other (Abdominal pain, nausea, vomiting) Requesting physician: Dennis Pardo MD Narrative: This is a 73-year-old woman who was presented to the ED 3 days ago with shortness of breath and fever. She was admitted and treated for aspiration pneumonia, UTI, septic shock, and acute respiratory failure with hypoxia. She was intubated and in the ICU. She was extubated yesterday and had complaints of nonspecific abdominal pain. She had an exploratory laparotomy with extensive adhesiolysis and small-bowel resection x2 on 04/04/24. She was hospitalized for several weeks following her surgery and had a prolonged ileus requiring TPN and NG tube decompression. She has had intermittent issues with chronic nausea and vomiting. During this hospitalization, she has been complaining of diffuse abdominal pain and did have an episode of nausea and vomiting prior to her admission. Initial CT scan of the abdomen and pelvis, as well as follow-up plain films showed no evidence of a bowel obstruction. No acute intra-abdominal process. Our service has been consulted for the abdominal pain, nausea, and vomiting. She had another repeat CT scan of the abdomen and pelvis today that showed no acute abnormality in the abdomen or pelvis. No evidence of a bowel obstruction. She has an NG tube in place. Review of Systems Review of Systems: All systems reviewed & are unremarkable except as noted in HPI and below PMFSH Past Medical History Medical History Hyperlipidemia Atrial fibrillation Iron deficiency anemia Hypothyroidism Breast cancer Small bowel obstruction Multiple small-bowel obstructions over the course of 20+ years. Essential hypertension Hypothyroidism Diabetes mellitus Shingles MGUS (monoclonal gammopathy of unknown significance) Bullous pemphigoid Surgical History Surgical History History of tubal ligation History of appendectomy Hx of cholecystectomy History of lumpectomy of right breast History of exploratory laparotomy (~2009) Due to small-bowel obstruction Family History Family History Mother , in her 90s Dementia Father , at age 72 Coronary artery disease Hx of CABG Social History Social History Social History: She lives in [place] with her of 44 years. They have 2 children. She is a former smoker but ?did not smoke that much?. She she does not drink alcohol. 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 Healthcare power of estate planning attorney: Years smoked: 47 Smoking status: Former smoker Second hand tobacco smoke exposure: Yes Alcohol intake: never Alcohol use details: occasional glass of wine Substance use: never Substance use type: does not use Last use: t-2 Do You Feel Safe in your Home?: Yes Lack of Transportation: No Lack of Food: Never True Current Housing: I Have Housing Concerned About Future Housing: No Difficulty Paying Gas/Electric Bills: No Difficulty Paying for Meds: No Currently Unemployed: No Education: High School Diploma/GED Difficulty w/ Childcare or Family Care: No Living arrangements: with family Gender identity (if verbalized by the patient): Female Spiritual care concerns: No Meds Home Medications and Allergies Home Medications ?Medication ?Instructions ?Recorded ?Confirmed ?Type amlodipine 10 mg tablet 10 mg PO DAILY 02/05/21 07/05/24 History fenofibrate 160 mg tablet 160 mg PO DAILY 02/05/21 07/05/24 History rosuvastatin 40 mg tablet 40 mg PO DAILY 02/05/21 07/05/24 History erythromycin 2 % topical solution 1 ml topical TID Itching 05/01/22 07/05/24 History ondansetron HCl 4 mg tablet 4 mg PO Q4H PRN Nausea 05/01/22 07/05/24 History pregabalin 150 mg capsule (Lyrica) 300 mg PO Q12H 05/01/22 07/05/24 History levothyroxine 100 mcg tablet 100 mcg PO DAILY 05/17/22 07/05/24 History oxycodone-acetaminophen 5 mg-325 1 tablet PO Q6H PRN Pain, Moderate 05/17/22 07/05/24 History mg tablet memantine 5 mg tablet 5 mg PO BID 09/06/23 07/05/24 History naproxen 375 mg tablet 375 mg PO Q72H PRN Pain, Mild 09/06/23 07/05/24 History diphenhydramine HCl 25 mg capsule 25 mg PO Q6H PRN Itching 04/02/24 07/05/24 History (Allergy (diphenhydramine)) docusate sodium 100 mg capsule 100 mg PO BID 04/02/24 07/05/24 History (Colace) ergocalciferol (vitamin D2) 50,000 50,000 unit PO WEEKLY 04/02/24 07/05/24 History unit tablet glipizide 10 mg tablet, extended 10 mg PO DAILY 04/02/24 07/05/24 History release 24 hr hydrocortisone 2.5 % topical cream 1 applic topical BID 04/02/24 07/05/24 History multivitamin 1 tablet PO DAILY 04/02/24 07/05/24 History polyvinyl alcohol-povidone 1.4 1 drp ophthalmic (eye) QID PRN Dry 04/02/24 07/05/24 History %-0.6 % eye drops Eyes nortriptyline 25 mg capsule 25 mg PO HS 07/05/24 07/05/24 History Allergies Allergy/AdvReac Type Severity Reaction Status Date / Time gemfibrozil Allergy Intermediate Rash Verified 06/24/24 07:10 hydrochlorothiazide Allergy Intermediate Rash Verified 06/24/24 07:10 irbesartan Allergy Intermediate Hives Verified 06/24/24 07:10 niacinamide Allergy Intermediate Rash Verified 06/24/24 07:10 amoxicillin (From Augmentin) AdvReac Intermediate Diarrhea Verified 06/24/24 07:10 clavulanic acid (From AdvReac Intermediate Diarrhea Verified 06/24/24 07:10 Augmentin) hydrocodone AdvReac Intermediate Dizziness Verified 06/24/24 07:10 lisinopril AdvReac Intermediate Dizziness Verified 06/24/24 07:10 Vital Signs Vital Signs - 24 hr 07/07/24 17:27 07/07/24 18:00 07/07/24 18:00 Temperature 99.3 F Pulse Rate 97 90 98 Respiratory Rate 28 H 22 H Blood Pressure 149/137 H Pulse Oximetry 99 100 Oxygen Delivery High Flow Therapy with Na Oxygen Flow Rate 40 Fraction of Inspired Oxygen 31 07/07/24 20:00 07/07/24 20:00 07/07/24 20:00 Temperature 100.4 F H Pulse Rate 92 92 Respiratory Rate 14 Blood Pressure 143/82 H Pulse Oximetry 98 97 Oxygen Delivery High Flow Therapy with Na Oxygen Flow Rate 40 Fraction of Inspired Oxygen 30 07/07/24 20:34 07/07/24 20:36 07/07/24 20:48 Temperature 100.6 F H Pulse Rate 87 Respiratory Rate 27 H 27 H Blood Pressure Pulse Oximetry 99 Oxygen Delivery High Flow Therapy with Na Oxygen Flow Rate 40 Fraction of Inspired Oxygen 31 07/07/24 21:45 07/07/24 22:00 07/07/24 22:00 Temperature 100.7 F H 101 F H Pulse Rate 94 99 Respiratory Rate 22 H Blood Pressure 130/74 Pulse Oximetry 99 Oxygen Delivery Oxygen Flow Rate Fraction of Inspired Oxygen 07/07/24 23:40 07/08/24 00:00 07/08/24 00:00 Temperature 100.2 F H Pulse Rate 90 Respiratory Rate 23 H Blood Pressure 106/51 L Pulse Oximetry 98 98 Oxygen Delivery High Flow Therapy with Na Oxygen Flow Rate 40 Fraction of Inspired Oxygen 30 07/08/24 01:56 07/08/24 02:00 07/08/24 02:00 Temperature 99.5 F Pulse Rate 88 90 Respiratory Rate 25 H 19 Blood Pressure 126/66 Pulse Oximetry 99 Oxygen Delivery Oxygen Flow Rate Fraction of Inspired Oxygen 07/08/24 02:04 07/08/24 04:00 07/08/24 04:00 Temperature Pulse Rate 88 95 Respiratory Rate 21 H Blood Pressure Pulse Oximetry 99 Oxygen Delivery High Flow Therapy with Na Oxygen Flow Rate 40 Fraction of Inspired Oxygen 30 07/08/24 04:00 07/08/24 04:11 07/08/24 08:00 Temperature 99.1 F Pulse Rate 88 89 Respiratory Rate 17 Blood Pressure 130/70 Pulse Oximetry 99 93 Oxygen Delivery High Flow Therapy with Na Oxygen Flow Rate 40 Fraction of Inspired Oxygen 30 07/08/24 08:00 07/08/24 08:00 07/08/24 10:00 Temperature 100.7 F H Pulse Rate 108 H 110 H 92 Respiratory Rate 21 H Blood Pressure 133/70 Pulse Oximetry 91 Oxygen Delivery Oxygen Flow Rate Fraction of Inspired Oxygen 07/08/24 10:00 07/08/24 12:00 07/08/24 12:00 Temperature Pulse Rate 92 99 Respiratory Rate 22 H Blood Pressure 134/74 Pulse Oximetry 93 91 Oxygen Delivery High Flow Therapy with Na Oxygen Flow Rate 40 Fraction of Inspired Oxygen 30 07/08/24 12:00 07/08/24 13:58 07/08/24 13:59 Temperature 100.6 F H Pulse Rate 96 101 H 101 H Respiratory Rate 26 H 24 H 24 H Blood Pressure 134/68 Pulse Oximetry 92 93 Oxygen Delivery High Flow Therapy with Na Oxygen Flow Rate 40 Fraction of Inspired Oxygen 30 07/08/24 14:00 07/08/24 14:00 Temperature Pulse Rate 100 100 Respiratory Rate 24 H Blood Pressure 141/87 H Pulse Oximetry 93 Oxygen Delivery Oxygen Flow Rate Fraction of Inspired Oxygen Exam Const: General: no acute distress and uncomfortable Nutritional Appearance: average body habitus Orientation/consciousness: patient oriented x3 HENMT: Head: normocephalic and atraumatic Ears: hearing grossly normal bilaterally Mouth: Yes moist mucous membranes Eyes: General: appearance normal, both eyes and all related structures Pupils: Equal, round and reactive pupils present Neck: Neck: normal visual inspection and full ROM Resp: Effort & Inspection: no respiratory distress and tachypneic Auscultation: diminished lung sounds Cardio: Rate: regular rate Rhythm: regular rhythm Peripheral pulses: Peripheral pulses 2+ throughout GI: Inspection: non-distended and scar (Multiple large vertical scars) GI Palp: Yes Soft to palpation, Yes Tenderness to palpation present (GI) (Diffuse tenderness), No Guarding due to palpation present (GI), No Hernia present and No Rebound tenderness present Auscultation: normal bowel sounds Skin: General skin exam: normal color Neuro: General: moves all extremities and no focal motor deficits Speech: normal speech Motor exam (neuro): 5/5 motor strength present throughout Extrem: General: normal to inspection and no edema Psych: Mental Status: mental status grossly normal Attitude: cooperative Insight: Good insight present (Psych) Judgement: Good judgement present (Psych) Results Labs 07/08/24 04:56 07/08/24 15:14 Labs: Abnormal lab results 07/07/24 07/08/24 07/08/24 Range/Units 17:39 04:56 05:44 WBC 12.4 H (4.5-10.0) K/mm3 RBC 3.53 L (4.2-5.4) M/mm3 Hgb 10.2 L (12.0-15.0) g/dL Hct 31.9 L (37.0-47.0) % RDW 17.2 H (11.5-14.5) % Plt Count 117 L (150-375) k/mm3 MPV 12.0 H (7.4-10.4) fl ABG pH 7.487 H (7.350-7.450) ABG pCO2 29.8 L (35.0-45.0) mmHg ABG pO2 65.4 L (80.0-100.0) mmHg ABG O2 Saturation 94.5 L (95.0-100.0) % ABG O2 Content 15.0 L (16.0-22.0) %vol Reduced Hemoglobin 6.3 H (0-5.0) %THb Total Hemoglobin 11.4 L (12.0-18.0) g/dL Chloride 110 H (98-107) mmol/L BUN 24 H (7-17) mg/dL POC Capillary Glucose 113 H (65-105) mg/dl Calcium 8.2 L (8.4-10.2) mg/dL AST 50 H (14-36) U/L Total Protein 6.0 L (6.3-8.2) g/dL Albumin 3.1 L (3.5-5.1) g/dL 07/08/24 Range/Units 15:14 WBC (4.5-10.0) K/mm3 RBC (4.2-5.4) M/mm3 Hgb (12.0-15.0) g/dL Hct (37.0-47.0) % RDW (11.5-14.5) % Plt Count (150-375) k/mm3 MPV (7.4-10.4) fl ABG pH (7.350-7.450) ABG pCO2 (35.0-45.0) mmHg ABG pO2 (80.0-100.0) mmHg ABG O2 Saturation (95.0-100.0) % ABG O2 Content (16.0-22.0) %vol Reduced Hemoglobin (0-5.0) %THb Total Hemoglobin (12.0-18.0) g/dL Chloride 110 H (98-107) mmol/L BUN 23 H (7-17) mg/dL POC Capillary Glucose (65-105) mg/dl Calcium (8.4-10.2) mg/dL AST (14-36) U/L Total Protein (6.3-8.2) g/dL Albumin (3.5-5.1) g/dL Diabetes panel 07/08/24 07/08/24 Range/Units 04:56 15:14 Sodium 142 143 (137-145) mmol/L Potassium 3.4 3.6 (3.4-5.0) mmol/L Chloride 110 H 110 H (98-107) mmol/L Carbon Dioxide 23 24 (22-30) mmol/L BUN 24 H 23 H (7-17) mg/dL Creatinine 0.76 0.76 (0.7-1.0) mg/dL Glucose 102 100 (65-110) mg/dL Calcium 8.2 L 8.9 (8.4-10.2) mg/dL AST 50 H (14-36) U/L ALT 24 (6-35) U/L Alkaline Phosphatase 68 (38-126) U/L Total Protein 6.0 L (6.3-8.2) g/dL Albumin 3.1 L (3.5-5.1) g/dL Calcium panel 07/08/24 07/08/24 Range/Units 04:56 15:14 Calcium 8.2 L 8.9 (8.4-10.2) mg/dL Albumin 3.1 L (3.5-5.1) g/dL Pituitary panel 07/08/24 07/08/24 Range/Units 04:56 15:14 Sodium 142 143 (137-145) mmol/L Potassium 3.4 3.6 (3.4-5.0) mmol/L Chloride 110 H 110 H (98-107) mmol/L Carbon Dioxide 23 24 (22-30) mmol/L BUN 24 H 23 H (7-17) mg/dL Creatinine 0.76 0.76 (0.7-1.0) mg/dL Glucose 102 100 (65-110) mg/dL Calcium 8.2 L 8.9 (8.4-10.2) mg/dL Adrenal panel 07/08/24 07/08/24 Range/Units 04:56 15:14 Sodium 142 143 (137-145) mmol/L Potassium 3.4 3.6 (3.4-5.0) mmol/L Chloride 110 H 110 H (98-107) mmol/L Carbon Dioxide 23 24 (22-30) mmol/L BUN 24 H 23 H (7-17) mg/dL Creatinine 0.76 0.76 (0.7-1.0) mg/dL Glucose 102 100 (65-110) mg/dL Calcium 8.2 L 8.9 (8.4-10.2) mg/dL Total Bilirubin 1.1 (0.2-1.3) mg/dL AST 50 H (14-36) U/L ALT 24 (6-35) U/L Alkaline Phosphatase 68 (38-126) U/L Total Protein 6.0 L (6.3-8.2) g/dL Albumin 3.1 L (3.5-5.1) g/dL All other labs normal. Imaging Additional studies: ITS Impressions Abdomen X-Ray 07/05/24 11:55 IMPRESSION: 1. Endotracheal tube and nasogastric tube in expected positions. 2. Mild opacities in the left mid to lower lung zone which could represent atelectasis or pneumonia. 2. Nonspecific bowel gas pattern without frankly dilated bowel to suggest obstruction. Chest X-Ray 07/05/24 11:55 IMPRESSION: 1. Endotracheal tube and nasogastric tube in expected positions. 2. Mild opacities in the left mid to lower lung zone which could represent atelectasis or pneumonia. 2. Nonspecific bowel gas pattern without frankly dilated bowel to suggest obstruction. Head CT 07/05/24 12:59 IMPRESSION: 1. Normal aging brain. No acute intracranial process. Chest/Abdomen/Pelvis CT 07/05/24 13:11 IMPRESSION: 1. Bilateral lower lobe pneumonia with additional small amount of pneumonia in the lingula. 2. No acute intra-abdominal/pelvic process. Chest X-Ray 07/05/24 15:21 IMPRESSION: Small left-sided pleural effusion. Supportive lines and tubes in position, as detailed above. Chest X-Ray 07/06/24 07:14 Impression: Support tubes, as above. Bibasilar atelectasis and possible minimal central congestive change, as above. Abdomen X-Ray 07/06/24 19:23 IMPRESSION: Interstitial edema. Segmental left basilar atelectasis/consolidation. NG tube in good position. Abdomen X-Ray 07/07/24 06:13 Impression: NG tube in satisfactory position. Abdomen X-Ray 07/07/24 06:26 Impression: NG tube remains in satisfactory position. Right-sided central venous line tip is in the right atrium or possibly just in the IVC. Consider retraction. Chest X-Ray 07/07/24 06:34 Impression: Hazy airspace disease perihilar regions and left lung base. Correlate for pulmonary edema, or possibly pneumonia. Possible underlying COPD. Support tubes, as above. Consider retraction of right subclavian line. Head CT 07/07/24 06:36 Impression: No significant abnormality seen. Case discussed with GINI العلي at 6:38 AM on 07/07/2024. Head/Neck CTA 07/07/24 06:46 Impression: High-grade, 95% stenoses at the proximal internal carotid arteries bilaterally. Probable focal occlusion at the origin of the right external carotid artery with near immediate reconstitution. ADDENDUM: 07/07/24 0714 Extensive groundglass pulmonary consolidation in the visualized lungs suggest moderate to advanced pulmonary edema. Correlate clinically for pneumonia. Chest X-Ray 07/08/24 06:12 Impression: Worsening moderate pulmonary edema pattern. Support tubes are unchanged. Right subclavian line tip is in the inferior right atrium.
[2024-07-08] MEDS: AMIODARONE HCL 200 MG TABLET PO (16:42)
[2024-07-08] MEDS: ACETAMINOPHEN ELIXIR 325 MG/10.15 ML UDC 650 MG PO (16:49)
[2024-07-08 16:53] LABS: Glucose Point of Care 96 mg/dl (65-105)
[2024-07-08] MEDS: ROSUVASTATIN 20 MG TABLET 40 MG FEED TUBE (20:16)
[2024-07-09] VITALS (40 sets, daily range): BP systolic 67–177; BP diastolic 45–88; PULSE 80–138; RESP 20–26; TEMP 37.2–39.3; O2SAT 90–100
[2024-07-09] MEDS: MORPHINE SULFATE (*CRX) 2 MG/ML INJ IV PUSH ×8 (00:13→20:54)
[2024-07-09] MEDS: CEFEPIME 2 GM/NS 50 ML 2 GM/50 ML BAG IVPB (00:13)
[2024-07-09] MEDS: IPRATROPIUM 0.5 MG/ALBUTEROL SULFATE 2.5 MG AMPUL.NEB 3 ML INHALATION ×4 (02:05→19:51)
[2024-07-09] MEDS: TRIMETHOBENZAMIDE HCL 200 MG/2 ML VIAL IM (02:18)
[2024-07-09 05:06] LABS: Glucose Point of Care 97 mg/dl (65-105)
[2024-07-09 05:23] LABS: Alveolar/Arterial O2 Gradient 110.5 mmHg; Base Excess ABG -6.8 mEq/l (+/-2.0); Carboxyhemoglobin 1.7 % THb (0-2.0); Fractional Inspired Oxygen 30 %; HCO3 ABG 16.5 mEq/l (22.0-26.0); Methemoglobin ABG 0.1 %THb (0-1.5); Oxygen Content ABG 18.2 %vol (16.0-22.0); Oxygen Saturation ABG 94.5 % (95.0-100.0); Oxyhemoglobin 92.3 % THb (90.0-100.0); PCO2 ABG 27.7 mmHg (35.0-45.0); PO2 ABG 70.9 mmHg (80.0-100.0); PO2 FiO2 Ratio Arterial Blood 2.36 %; Reduced Hemoglobin 5.9 %THb (0-5.0); pH ABG 7.393 (7.350-7.450)
[2024-07-09 05:34] LABS: Device HIGH FLOW THERAPY; Modified Allen's Test Pass; Site Drawn RIGHT RADIAL
[2024-07-09] MEDS: ACETAMINOPHEN ELIXIR 325 MG/10.15 ML UDC 650 MG PO ×3 (06:12→20:52)
[2024-07-09] MEDS: CENTRAL LINE FLUSH 10 ML IV PUSH ×3 (06:13→20:53)
[2024-07-09] MEDS: metroNIDAZOLE 500 MG/ISO 100ML 500 MG/100 ML BAG 100 MG IVPB (06:13)
[2024-07-09] MEDS: LEVOTHYROXINE SODIUM 100 MCG TABLET FEED TUBE (06:13)
[2024-07-09 06:27] LABS: Hematocrit 33.6 % (37.0-47.0); Hemoglobin 10.6 g/dL (12.0-15.0); Mean Corpuscular HGB Conc 31.5 g/dl (32-36); Mean Corpuscular Volume 92.1 fl (80-100); Mean Platelet Volume 11.1 fl (7.4-10.4); Platelet Count Result 121 k/mm3 (150-375); Red Blood Count 3.65 M/mm3 (4.2-5.4); Red Cell Distribution Width 16.9 % (11.5-14.5)
[2024-07-09 07:12] LABS: Alanine Aminotransferase 21 U/L (6-35); Albumin Level 3.4 g/dL (3.5-5.1); Alkaline Phosphatase 88 U/L (38-126); Anion Gap 20 mmol/L (4-12); Aspartate Amino Transferase 32 U/L (14-36); Bilirubin,Total 1.2 mg/dL (0.2-1.3); Blood Urea Nitrogen 28 mg/dL (7-17); Calcium 9.2 mg/dL (8.4-10.2); Carbon Dioxide 16 mmol/L (22-30); Chloride 111 mmol/L (98-107); Estimated CRCL calculation 45 ml/min; Estimated Glomerular Filt Rate > 60; Glucose 142 mg/dL (65-110); Magnesium 1.9 mg/dL (1.6-2.3); Potassium 3.8 mmol/L (3.4-5.0); Sodium 147 mmol/L (137-145)
[2024-07-09] MEDS: PREGABALIN (*CRX) 75 MG CAPSULE 150 MG FEED TUBE ×2 (09:01→20:51)
[2024-07-09] MEDS: ASPIRIN 325 MG TABLET FEED TUBE (09:01)
[2024-07-09] MEDS: AMIODARONE HCL 200 MG TABLET PO (09:01)
[2024-07-09] MEDS: PANTOPRAZOLE SODIUM IV 40 MG VIAL IV PUSH (09:02)
[2024-07-09] MEDS: ENOXAPARIN 60 MG/0.6 ML SYRINGE SUB-Q ×2 (09:02→20:53)
--- NOTE | 2024-07-09 09:18 | WPDINTPN ---
Progress Note: A&P Assessment and Plan (1) Acute respiratory failure with hypoxia: Code(s): J96.01 - Acute respiratory failure with hypoxia Status: Acute Assessment and Plan: Acute respiratory failure secondary to pneumonia which is likely aspiration CT scan chest x-ray and ABG reviewed 07/08 Patient was extubated yesterday after a successful weaning trial. Post that patient was tachypneic and was placed on BiPAP for work of breathing and respiratory support BiPAP had to be discontinued due to nausea. Now she has Vapotherm at 40 L and 30% FiO2 will try to wean her off to nasal cannula She does have some tachypnea but ABG shows hyperventilation and patient does not appear in distress with no use of accessory muscle 07/08 CT chest confirmed patchy extensive ground-glass consolidation in both lungs. She was given additional dose of laced 07/09 will wean Vapotherm to nasal cannula. Continue incentive spirometry if patient can do and EzPAP Up in chair (2) Septic shock: Code(s): A41.9 - Sepsis, unspecified organism; R65.21 - Severe sepsis with septic shock Status: Acute Assessment and Plan: Septic shock secondary to aspiration pneumonia and UTI Continue cefepime and Flagyl. Discontinue vancomycin MRSA screen negative, blood and urine cultures have been sent and are pending patient does have E coli history which was not ESBL Off Levophed and IV fluid (3) Abdominal pain: Code(s): R10.9 - Unspecified abdominal pain Status: Acute Assessment and Plan: Complains of nonspecific abdominal pain. Also has chronic nausea vomit History of bowel obstruction and surgery Repeat CT scan of the chest abdomen pelvis did not show any obstruction Clamp NG tube. Trial of clear liquid diet General surgery following Monitor p.o. intake (4) Pneumonia: Code(s): J18.9 - Pneumonia, unspecified organism Status: Acute Assessment and Plan: See above (5) Hyperlipidemia: Code(s): E78.5 - Hyperlipidemia, unspecified Status: Acute Assessment and Plan: Rosuvastatin (6) Diabetes mellitus: Code(s): E11.9 - Type 2 diabetes mellitus without complications Status: Acute Assessment and Plan: Sliding scale insulin (7) Nausea & vomiting: Code(s): R11.2 - Nausea with vomiting, unspecified Status: Acute Assessment and Plan: See above (8) UTI (urinary tract infection): Qualifiers: Hematuria presence: with hematuria Urinary tract infection type: acute cystitis Qualified Code(s): N30.01 - Acute cystitis with hematuria Code(s): N39.0 - Urinary tract infection, site not specified Status: Acute Assessment and Plan: Antibiotics as above (9) Elevated troponin: Code(s): R79.89 - Other specified abnormal findings of blood chemistry Status: Acute Assessment and Plan: Patient presented with elevated troponin which peaked at 3.1 and now is trending down This appears to be type 2 non STEMI likely secondary to respiratory failure and septic shock. EKG was done and does not show any signs of ischemia. Patient did not complain of any chest pain at the time of presentation Continue aspirin and statin Echo as below Cardiology following Continue therapeutic dose Lovenox as per Cardiology recommended Summary 1. Complete two-dimensional, color flow and Doppler transthoracic echocardiogram is performed. 2. Left ventricular systolic function is normal, estimated at 50-55%. 3. The left ventricular diastolic function is grade II diastolic dysfunction. 4. There is mild aortic valve calcification. 5. There is mild mitral valve regurgitation. 6. There is mild mitral valve calcification. 7. There is trace tricuspid valve regurgitation. 8. No pulmonary hypertension, estimated pulmonary arterial systolic pressure is 26 mmHg. 9. There is mild pulmonic regurgitation. (10) Atrial fibrillation: Code(s): I48.91 - Unspecified atrial fibrillation Status: Acute Assessment and Plan: Patient has been in and out of AFib with ventricular rate is mostly controlled. Off vasopressor Off amiodarone infusion and on p.o. amiodarone Continue Lovenox (11) Electrolyte abnormality: Code(s): E87.8 - Other disorders of electrolyte and fluid balance, not elsewhere classified Status: Acute Assessment and Plan: Potassium replacement ordered (12) Anisocoria: Code(s): H57.02 - Anisocoria Status: Acute Assessment and Plan: Left pupil is larger than right but reactive to light Patient has had shingles in around left eye and chronic pain. She has had bilateral eye surgeries. 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 Probable focal occlusion at the origin of the right external carotid artery with near immediate reconstitution. Plan DVT prophylaxis -Lovenox Stress ulcer prophylaxis -PPI Nutrition -start clear liquid Code Status -patient's confirms patient code status to DNR. 07/07 I spoke to patient's and daughter at bedside and updated them with patient's status and answered all their questions. 07/08 I spoke to patient's and updated him with patient's current status and treatment plan. I answered all his questions Case discussed with Cardiology Subjective Date/time seen: 07/09/24 Overnight events reviewed. febrile Continues to be on Vapotherm with 30% and 40 L flow She was confused overnight. In and out of AFib Good urine output in response to Lasix 350 mL out of NG States her nausea has resolved. She continues to have abdominal pain. Unable to give any specifics and continues to moan AFib on the monitor Review of Systems Review of Systems: All systems reviewed & are unremarkable except as noted in HPI and below (HPI) Exam Narrative: General: Pt is alert awake Lungs/Chest: Trachea central Coarse BS B/L, No crackles or wheezing. Mild tachypnea but no respiratory distress or use of accessory muscle Cardiac: RRR. Normal S1 S2. No murmurs Circulation: Pedal pulses are intact and symmetrical. Abdomen: Present bowel sounds. Soft. Mild diffuse tenderness to palpation ND. No guarding. NG tube in place with bilious output Extremities: No clubbing, cyanosis or edema. Warm : Jones in place Neurologic: AO x2. Left pupil is enlarged but reactive to light. Patient's states the patient has had eye surgeries and was side and also had multiple injections for trigeminal nerve pain on the left side and had shingles Objective Data Vital Signs Vital Signs: Vital Signs - 24 hr 07/08/24 10:00 07/08/24 10:07/08/24 12:00 Temperature Pulse Rate 92 92 Respiratory Rate 22 H Blood Pressure 134/74 Pulse Oximetry 93 91 Oxygen Delivery High Flow Therapy with Na Oxygen Flow Rate 40 Fraction of Inspired Oxygen 30 07/08/24 12:00 07/08/24 12:00 07/08/24 13:58 Temperature 38.1 C H Pulse Rate 99 96 101 H Respiratory Rate 26 H 24 H Blood Pressure 134/68 Pulse Oximetry 92 Oxygen Delivery Oxygen Flow Rate Fraction of Inspired Oxygen 07/08/24 13:59 07/08/24 14:00 07/08/24 14:00 Temperature Pulse Rate 101 H 100 100 Respiratory Rate 24 H 24 H Blood Pressure 141/87 H Pulse Oximetry 93 93 Oxygen Delivery High Flow Therapy with Na Oxygen Flow Rate 40 Fraction of Inspired Oxygen 30 07/08/24 16:00 07/08/24 16:00 07/08/24 16:00 Temperature 38.6 C H Pulse Rate 104 H 104 H Respiratory Rate 24 H Blood Pressure 145/79 H Pulse Oximetry 91 91 Oxygen Delivery High Flow Therapy with Na Oxygen Flow Rate 40 Fraction of Inspired Oxygen 30 07/08/24 16:42 07/08/24 16:49 07/08/24 18:00 Temperature 38.6 C H Pulse Rate 101 H 100 Respiratory Rate Blood Pressure Pulse Oximetry Oxygen Delivery Oxygen Flow Rate Fraction of Inspired Oxygen 07/08/24 18:00 07/08/24 18:01 07/08/24 20:00 Temperature 38.3 C H 38.3 C H Pulse Rate 97 Respiratory Rate 21 H Blood Pressure 142/77 H Pulse Oximetry 91 93 Oxygen Delivery High Flow Therapy with Na Oxygen Flow Rate 40 Fraction of Inspired Oxygen 30 07/08/24 20:00 07/08/24 20:00 07/08/24 20:09 Temperature 37.9 C H Pulse Rate 101 H 101 H 102 H Respiratory Rate 21 H 22 H Blood Pressure 138/73 Pulse Oximetry 93 93 Oxygen Delivery High Flow Therapy with Na Oxygen Flow Rate 40 Fraction of Inspired Oxygen 30 07/08/24 20:09 07/08/24 20:16 07/08/24 22:00 Temperature Pulse Rate 103 H 101 H 101 H Respiratory Rate 22 H 16 Blood Pressure Pulse Oximetry Oxygen Delivery Oxygen Flow Rate Fraction of Inspired Oxygen 07/08/24 22:00 07/09/24 00:00 07/09/24 00:00 Temperature 37.8 C H Pulse Rate 101 H 102 H Respiratory Rate 21 H Blood Pressure 151/79 H Pulse Oximetry 92 91 Oxygen Delivery High Flow Therapy with Na Oxygen Flow Rate 40 Fraction of Inspired Oxygen 30 07/09/24 00:00 07/09/24 02:00 07/09/24 02:00 Temperature 37.7 C H 37.8 C H Pulse Rate 102 H 103 H 103 H Respiratory Rate 21 H 23 H Blood Pressure 148/81 H 139/84 Pulse Oximetry 91 93 Oxygen Delivery Oxygen Flow Rate Fraction of Inspired Oxygen 07/09/24 02:06 07/09/24 02:11 07/09/24 02:59 Temperature Pulse Rate 106 H 104 H Respiratory Rate 21 H 22 H Blood Pressure Pulse Oximetry 91 Oxygen Delivery High Flow Therapy with Na Oxygen Flow Rate 40 Fraction of Inspired Oxygen 30 07/09/24 04:00 07/09/24 04:00 07/09/24 06:00 Temperature 38.1 C H Pulse Rate 106 H 107 H 107 H Respiratory Rate 20 Blood Pressure 135/88 Pulse Oximetry 93 Oxygen Delivery Oxygen Flow Rate Fraction of Inspired Oxygen 07/09/24 06:00 07/09/24 06:12 07/09/24 07:08 Temperature 37.9 C H 38.2 C H 37.7 C H Pulse Rate 107 H Respiratory Rate 20 Blood Pressure 138/81 Pulse Oximetry 93 Oxygen Delivery Oxygen Flow Rate Fraction of Inspired Oxygen 07/09/24 08:21 07/09/24 08:21 07/09/24 08:30 Temperature Pulse Rate 109 H 109 H 115 H Respiratory Rate 24 H 24 H 24 H Blood Pressure Pulse Oximetry 95 Oxygen Delivery Nasal Cannula Oxygen Flow Rate 3 Fraction of Inspired Oxygen 07/09/24 09:01 Temperature Pulse Rate 105 H Respiratory Rate Blood Pressure Pulse Oximetry Oxygen Delivery Oxygen Flow Rate Fraction of Inspired Oxygen Intake/Output Intake/Output: Intake & Output 07/06/24 07/07/24 07/08/24 07/09/24 23:59 23:59 23:59 23:59 Intake Total 2469.4 866.5 400 100 Output Total 1160 2300 2650 650 Balance 1309.4 -1433.5 -2250 -550 Meds/Results Medications: Active Medications Generic Name Dose Route Start Last Admin Trade Name Freq PRN Reason Stop Dose Admin Acetaminophen 650 mg 07/07/24 12:10 07/09/24 06:12 Acetaminophen Elixir 325 Mg/10.15 Ml Udc PO 650 mg Q6H PRN Administration Mild Pain (1-3) or Fever Albuterol/Ipratropium 3 ml 07/06/24 14:00 07/09/24 08:20 Ipratropium 0.5 Mg/Albuterol Sulfate 2.5 Mg Ampul.Neb 3 Ml INHALATION 3 ml Q6HRT SHAKILA Administration Alteplase, Recombinant 2 mg 07/09/24 04:07 Alteplase 2 Mg Vial (Cathflo) IV PUSH ONCE PRN Line Occlusion Amiodarone HCl 200 mg 07/08/24 17:00 07/09/24 09:01 Amiodarone Hcl 200 Mg Tablet PO 200 mg BID SHAKILA Administration Artificial Tears 1 drop 07/07/24 12:23 07/07/24 17:50 Artificial Tears Ophth Soln 15 Ml Bottle EACH EYE 1 drop QID PRN Administration Dry Eye(s) Aspirin 325 mg 07/06/24 08:35 07/09/24 09:01 Aspirin 325 Mg Tablet FEED TUBE 325 mg DAILY@0800 SHAKILA Administration Dextrose 12.5 gm 07/05/24 17:16 Dextrose 50% 25 Gm/50 Ml Syringe IV PUSH PRN PRN Hypoglycemia Protocol Enoxaparin Sodium 60 mg 07/06/24 21:00 07/09/24 09:02 Enoxaparin 60 Mg/0.6 Ml Syringe SUB-Q 60 mg Q12HR SHAKILA Administration Glucagon 1 mg 07/05/24 17:16 Glucagon For Inj 1 Mg Vial IM PRN PRN Hypoglycemia Protocol Glucose 15 gm 07/05/24 17:16 Glucose Oral Gel 15 Gm Of Glucse In 37.5 Gm Tube PO PRN PRN Hypoglycemia Protocol Dextrose 1,000 mls @ 100 mls/hr 07/05/24 17:16 Dextrose 5% 1,000 Ml IVPB PRN PRN Hypoglycemia Protocol Cefepime HCl 2 gm in 50 mls @ 100 mls/hr 07/06/24 00:00 07/09/24 00:13 Maxipime 2 Gm/Ns 50 Ml IVPB 100 mls/hr Q12H SHAKILA Administration Metronidazole 500 mg in 100 mls @ 100 mls/hr 07/05/24 22:00 07/09/24 07:45 Flagyl 500 Mg/Iso Soln 100 Ml IVPB Infused Q8HR SHAKILA Infusion Insulin Aspart 2 - 5 units 07/05/24 18:00 07/09/24 07:07 Insulin Aspart (*Bkc) 100 Units/Ml SUB-Q Not Given Q6HR [facility] Protocol Levothyroxine Sodium 100 mcg 07/06/24 06:30 07/09/24 06:13 Levothyroxine Sodium 100 Mcg Tablet FEED TUBE 100 mcg DAILY@0630 SHAKILA Administration Morphine Sulfate 2 mg 07/08/24 08:18 07/09/24 09:02 Morphine Sulfate (*Crx) 2 Mg/Ml Inj IV PUSH 2 mg Q2H PRN Administration Pain Rated 7-10 Pantoprazole Sodium 40 mg 07/06/24 09:00 07/09/24 09:02 Pantoprazole Sodium Iv 40 Mg Vial IV PUSH 40 mg QAM SHAKILA Administration Pregabalin 150 mg 07/07/24 21:00 07/09/24 09:01 Pregabalin (*Crx) 75 Mg Capsule FEED TUBE 150 mg Q12HR SHAKILA Administration Quetiapine Fumarate 25 mg 07/09/24 21:00 Quetiapine Fumarate 25 Mg Tablet PO HS SHAKILA Rosuvastatin Calcium 40 mg 07/06/24 21:00 07/08/24 20:16 Rosuvastatin 20 Mg Tablet FEED TUBE 40 mg HS SHAKILA Administration Sodium Chloride 10 ml 07/08/24 14:00 07/09/24 06:13 Central Line Flush IV PUSH 10 ml Q8HR SHAKILA Administration Sodium Chloride 20 ml 07/08/24 10:15 Central Line Flush IV PUSH PRN PRN after blood draws Trimethobenzamide HCl 200 mg 07/06/24 18:21 07/09/24 02:18 Trimethobenzamide Hcl 200 Mg/2 Ml Vial IM 200 mg Q6H PRN Administration Nausea And Vomiting Radiology Results: ITS Impressions Abdomen X-Ray 07/07/24 06:26 Impression: NG tube remains in satisfactory position. Right-sided central venous line tip is in the right atrium or possibly just in the IVC. Consider retraction. Head CT 07/07/24 06:36 Impression: No significant abnormality seen. Case discussed with GINI العلي at 6:38 AM on 07/07/2024. Head/Neck CTA 07/07/24 06:46 Impression: High-grade, 95% stenoses at the proximal internal carotid arteries bilaterally. Probable focal occlusion at the origin of the right external carotid artery with near immediate reconstitution. ADDENDUM: 07/07/24 0714 Extensive groundglass pulmonary consolidation in the visualized lungs suggest moderate to advanced pulmonary edema. Correlate clinically for pneumonia. Chest X-Ray 07/09/24 06:04 Impression: 1: Interval improvement of bilateral airspace disease, consistent with resolving edema. Labs Labs: Laboratory Results - last 24 hr 07/08/24 07/08/24 07/08/24 10:58 15:14 16:42 WBC RBC Hgb Hct MCV MCH MCHC RDW Plt Count MPV Puncture Site ABG pH ABG pCO2 ABG pO2 ABG PO2/FiO2 Ratio ABG HCO3 ABG O2 Saturation ABG O2 Content ABG Base Excess A-a Gradient Oxyhemoglobin Carboxyhemoglobin Methemoglobin Reduced Hemoglobin Total Hemoglobin O2 Delivery Device O2 Liters/Min FiO2 Sodium 143 Potassium 3.6 Chloride 110 H Carbon Dioxide 24 Anion Gap 9 BUN 23 H Creatinine 0.76 Estim Creat Clear Calc 49 Estimated GFR > 60 Glucose 100 POC Capillary Glucose 98 96 Calcium 8.9 Magnesium Total Bilirubin AST ALT Alkaline Phosphatase Total Protein Albumin 07/09/24 07/09/24 07/09/24 00:22 05:05 06:20 WBC 12.0 H RBC 3.65 L Hgb 10.6 L Hct 33.6 L MCV 92.1 MCH 29.0 MCHC 31.5 L RDW 16.9 H Plt Count 121 L MPV 11.1 H Puncture Site Right radial ABG pH 7.393 ABG pCO2 27.7 L ABG pO2 70.9 L ABG PO2/FiO2 Ratio 2.36 ABG HCO3 16.5 L ABG O2 Saturation 94.5 L ABG O2 Content 18.2 ABG Base Excess -6.8 A-a Gradient 110.5 Oxyhemoglobin 92.3 Carboxyhemoglobin 1.7 Methemoglobin 0.1 Reduced Hemoglobin 5.9 H Total Hemoglobin 14.0 O2 Delivery Device High flow therapy O2 Liters/Min 40.0 FiO2 30 Sodium 147 H Potassium 3.8 Chloride 111 H Carbon Dioxide 16 L Anion Gap 20 H BUN 28 H Creatinine 0.82 Estim Creat Clear Calc 45 Estimated GFR > 60 Glucose 142 H POC Capillary Glucose 97 Calcium 9.2 Magnesium 1.9 Total Bilirubin 1.2 AST 32 ALT 21 Alkaline Phosphatase 88 Total Protein 6.0 L Albumin 3.4 L Quality VTE Prophylaxis VTE prophylaxis: pharmacologic ordered
[2024-07-09] MEDS: ARTIFICIAL TEARS OPHTH SOLN 15 ML BOTTLE 1 DROP EACH EYE (10:00)
[2024-07-09] MEDS: KCL 20 MEQ/SW 100 ML 100 ML 50 MEQ IVPB (10:01)
[2024-07-09] MEDS: AMIODARONE 150 MG/D5W 100 ML 150 MG/100 ML BAG 600 MG IV CONT (10:39)
[2024-07-09] MEDS: AMIODARONE 360 MG/D5W 200 ML 360 MG/200 ML BAG 33.33 MG IV CONT (10:51)
--- NOTE | 2024-07-09 10:52 | P.PNCA_ITS ---
Progress Note: A&P Assessment and Plan (1) Elevated troponin: Code(s): R79.89 - Other specified abnormal findings of blood chemistry Status: Acute (2) Hyperlipidemia: Code(s): E78.5 - Hyperlipidemia, unspecified Status: Acute (3) Essential hypertension: Code(s): I10 - Essential (primary) hypertension Status: Acute Plan Elevated troponin, probable type 2 NSTEMI Paroxysmal atrial fibrillation, new diagnosis. Acute on chronic heart failure with preserved LVEF. Back pain Acute hypoxic respiratory failure s/p intubated and sedated secondary to pneumonia; CT chest showed pneumonia Hypokalemia Hypomagnesemia Sepsis secondary to UTI and pneumonia - on broad-spectrum antibiotics Septic shock requiring Levophed DM HTN Hyperlipidemia Plan: -Given patient had no complaints of chest pain prior to admission, the rise in troponin is most likely type 2 WI with supply demand mismatch due to stress of acute illness. Troponin has peaked and is now downtrending. EKG is sinus rhythm with possible old anterior infarction and no new ischemic changes. R ecommend continuing medical management with aspirin, statin. Once patient recovers from her acute illness, recommend further coronary evaluation with an outpatient stress test -Regarding paroxysmal atrial fibrillation, this appears to be a new diagnosis. Given that she is back in RVR, Amiodarone drip restarted. Will also start PO Metoprolol now. Will need anticoagulation for stroke prophylaxis when stable. -TTE shows LVEF 50-55%. Has pulmonary edema and pleural effusions. Agree with intermittent IV Lasix. -Check and replace electrolytes as needed keeping K>4 and Mg>2 -Management of non cardiac medical problems per primary ICU team Recommendations and plan discussed with ICU Physician. Subjective Date/time seen: 07/09/24 10:52 Interval history: Reason for visit: HPI: 73-year-old female with history of shingles face, diabetes, hypothyroidism, hypertension, hyperlipidemia, breast cancer, and MGUS presents to the hospital with fever 102.4 and shortness of breath. Patient was intubated emergently in the ED for respiratory failure and is unable to provide any history. History is obtained from patient's and the medical chart. Per the the patient was complaining of severe back pain yesterday but no respiratory symptoms. He states that she was able to cook, clean, do laundry, and she even up and down stairs. She had an emesis this morning when she woke up and had more emesis after going back to bed. He called 911 due to patient having trouble breathing. Per EMS patient's SpO2 was 70% and she was placed on non- rebreather. In the ER patient was on 15 L non-rebreather with SpO2 in the low 90s and respiratory rate of 40 for which she was emergently intubated. Labs showed a potassium of 2.9, lactic acid of 3.5, magnesium 1.5, and troponin of 0.747, then 2.2. EKG showed sinus tachycardia with occasional PVCs, T-wave abnormality, heart rate 117, QTC 611. UA was negative for nitrates but had 1+ leukocyte esterase. Influenza A B, COVID, and RSV were negative. Blood cultures were drawn and pending. In the ED the patient was given IV Flagyl, vancomycin, 2 g magnesium, 20 millimoles of potassium phosphate. Patient was hypotensive after bolus of IV fluids were administered and she was started on Levophed. Cardiology was consulted given elevated troponin. Date of service 07/06: Troponin increased to 2.2, 2.9 and peaked at 3.1 and is now down trending to 2.8. Patient is intubated and unable to elicit any history from her. Tele shows sinus rhythm. Date of service 07/07: Noticed to have an unequal pupil size this morning, CODE STROKE was called. Head CT showed no significant abnormality. CTA Head and Neck showed high-grade 95% stenosis at the proximal internal carotid arteries bilaterally. Probable focal occlusion at the origin of the right external carotid artery with near immediate reconstitution. Tele shows sinus rhythm, had some AFIB yesterday. Currently on Amiodarone drip. Date of service 07/08: Currently in sinus rhythm. Date of service 07/09: Went in and out of AFIB overnight, staying in AFIB with RVR this morning. Review of Systems Review of Systems: Limited ROS obtained due to clinical status. Denies pain. Exam Const: Other: Ill appearing female HENMT: Other: NG tube in place Resp: Effort & Inspection: normal respiratory effort Other: On HFNC Cardio: Rate: tachycardic Rhythm: abnormal rhythm irregularly irregular Objective Data Vital Signs Vital Signs: Vital Signs - 24 hr 07/08/24 12:00 07/08/24 12:00 07/08/24 12:00 Temperature 38.1 C H Pulse Rate 99 96 Respiratory Rate 26 H Blood Pressure 134/68 Pulse Oximetry 91 92 Oxygen Delivery High Flow Therapy with Na Oxygen Flow Rate 40 Fraction of Inspired Oxygen 30 07/08/24 13:58 07/08/24 13:59 07/08/24 14:00 Temperature Pulse Rate 101 H 101 H 100 Respiratory Rate 24 H 24 H Blood Pressure Pulse Oximetry 93 Oxygen Delivery High Flow Therapy with Na Oxygen Flow Rate 40 Fraction of Inspired Oxygen 30 07/08/24 14:00 07/08/24 16:00 07/08/24 16:00 Temperature Pulse Rate 100 104 H Respiratory Rate 24 H Blood Pressure 141/87 H Pulse Oximetry 93 91 Oxygen Delivery High Flow Therapy with Na Oxygen Flow Rate 40 Fraction of Inspired Oxygen 30 07/08/24 16:00 07/08/24 16:42 07/08/24 16:49 Temperature 38.6 C H 38.6 C H Pulse Rate 104 H 101 H Respiratory Rate 24 H Blood Pressure 145/79 H Pulse Oximetry 91 Oxygen Delivery Oxygen Flow Rate Fraction of Inspired Oxygen 07/08/24 18:00 07/08/24 18:00 07/08/24 18:01 Temperature 38.3 C H 38.3 C H Pulse Rate 100 97 Respiratory Rate 21 H Blood Pressure 142/77 H Pulse Oximetry 91 Oxygen Delivery Oxygen Flow Rate Fraction of Inspired Oxygen 07/08/24 20:00 07/08/24 20:00 07/08/24 20:00 Temperature 37.9 C H Pulse Rate 101 H 101 H Respiratory Rate 21 H Blood Pressure 138/73 Pulse Oximetry 93 93 Oxygen Delivery High Flow Therapy with Na Oxygen Flow Rate 40 Fraction of Inspired Oxygen 30 07/08/24 20:09 07/08/24 20:09 07/08/24 20:16 Temperature Pulse Rate 102 H 103 H 101 H Respiratory Rate 22 H 22 H 16 Blood Pressure Pulse Oximetry 93 Oxygen Delivery High Flow Therapy with Na Oxygen Flow Rate 40 Fraction of Inspired Oxygen 30 07/08/24 22:00 07/08/24 22:00 07/09/24 00:00 Temperature 37.8 C H Pulse Rate 101 H 101 H Respiratory Rate 21 H Blood Pressure 151/79 H Pulse Oximetry 92 91 Oxygen Delivery High Flow Therapy with Na Oxygen Flow Rate 40 Fraction of Inspired Oxygen 07/09/24 00:00 07/09/24 00:00 07/09/24 02:00 Temperature 37.7 C H Pulse Rate 102 H 102 H 103 H Respiratory Rate 21 H Blood Pressure 148/81 H Pulse Oximetry 91 Oxygen Delivery Oxygen Flow Rate Fraction of Inspired Oxygen 07/09/24 02:00 07/09/24 02:06 07/09/24 02:11 Temperature 37.8 C H Pulse Rate 103 H 106 H 104 H Respiratory Rate 23 H 21 H 22 H Blood Pressure 139/84 Pulse Oximetry 93 Oxygen Delivery Oxygen Flow Rate Fraction of Inspired Oxygen 07/09/24 02:59 07/09/24 04:00 07/09/24 04:00 Temperature 38.1 C H Pulse Rate 106 H 107 H Respiratory Rate 20 Blood Pressure 135/88 Pulse Oximetry 91 93 Oxygen Delivery High Flow Therapy with Na Oxygen Flow Rate 40 Fraction of Inspired Oxygen 30 07/09/24 06:00 07/09/24 06:00 07/09/24 06:12 Temperature 37.9 C H 38.2 C H Pulse Rate 107 H 107 H Respiratory Rate 20 Blood Pressure 138/81 Pulse Oximetry 93 Oxygen Delivery Oxygen Flow Rate Fraction of Inspired Oxygen 07/09/24 07:08 07/09/24 08:21 07/09/24 08:21 Temperature 37.7 C H Pulse Rate 109 H 109 H Respiratory Rate 24 H 24 H Blood Pressure Pulse Oximetry 95 Oxygen Delivery Nasal Cannula Oxygen Flow Rate 3 Fraction of Inspired Oxygen 07/09/24 08:30 07/09/24 09:01 07/09/24 10:00 Temperature 37.2 C Pulse Rate 115 H 105 H 127 H Respiratory Rate 24 H 25 H Blood Pressure 125/78 Pulse Oximetry 93 Oxygen Delivery Oxygen Flow Rate Fraction of Inspired Oxygen 07/09/24 10:39 Temperature Pulse Rate 138 H Respiratory Rate Blood Pressure 125/78 Pulse Oximetry Oxygen Delivery Oxygen Flow Rate Fraction of Inspired Oxygen Intake/Output Intake/Output: Intake & Output 07/06/24 07/07/24 07/08/24 07/09/24 23:59 23:59 23:59 23:59 Intake Total 2469.4 866.5 400 100 Output Total 1160 2300 2650 650 Balance 1309.4 -1433.5 -2250 -550 Meds/Results Medications: Active Medications Generic Name Dose Route Start Last Admin Trade Name Freq PRN Reason Stop Dose Admin Acetaminophen 650 mg 07/07/24 12:10 07/09/24 06:12 Acetaminophen Elixir 325 Mg/10.15 Ml Udc PO 650 mg Q6H PRN Administration Mild Pain (1-3) or Fever Albuterol/Ipratropium 3 ml 07/06/24 14:00 07/09/24 08:20 Ipratropium 0.5 Mg/Albuterol Sulfate 2.5 Mg Ampul.Neb 3 Ml INHALATION 3 ml Q6HRT SHAKILA Administration Alteplase, Recombinant 2 mg 07/09/24 04:07 Alteplase 2 Mg Vial (Cathflo) IV PUSH ONCE PRN Line Occlusion Amiodarone HCl 200 mg 07/08/24 17:00 07/09/24 09:01 Amiodarone Hcl 200 Mg Tablet PO 200 mg BID SHAKILA Administration Artificial Tears 1 drop 07/07/24 12:23 07/09/24 10:00 Artificial Tears Ophth Soln 15 Ml Bottle EACH EYE 1 drop QID PRN Administration Dry Eye(s) Aspirin 325 mg 07/06/24 08:35 07/09/24 09:01 Aspirin 325 Mg Tablet FEED TUBE 325 mg DAILY@0800 SHAKILA Administration Dextrose 12.5 gm 07/05/24 17:16 Dextrose 50% 25 Gm/50 Ml Syringe IV PUSH PRN PRN Hypoglycemia Protocol Enoxaparin Sodium 60 mg 07/06/24 21:00 07/09/24 09:02 Enoxaparin 60 Mg/0.6 Ml Syringe SUB-Q 60 mg Q12HR SHAKILA Administration Glucagon 1 mg 07/05/24 17:16 Glucagon For Inj 1 Mg Vial IM PRN PRN Hypoglycemia Protocol Glucose 15 gm 07/05/24 17:16 Glucose Oral Gel 15 Gm Of Glucse In 37.5 Gm Tube PO PRN PRN Hypoglycemia Protocol Dextrose 1,000 mls @ 100 mls/hr 07/05/24 17:16 Dextrose 5% 1,000 Ml IVPB PRN PRN Hypoglycemia Protocol Potassium Chloride 100 mls @ 50 mls/hr 07/09/24 09:45 07/09/24 10:01 Kcl 20 Meq/Sw 100 Ml IVPB 07/09/24 11:44 50 mls/hr ONCE ONE Administration Meropenem 1 gm in 100 mls @ 200 mls/hr 07/09/24 10:30 IVPB Q12HR SHAKILA Amiodarone HCl/Dextrose 360 mg in 200 mls @ 33.333 mls/hr 07/09/24 10:45 Nexterone 360 Mg/D5w 200 Ml IV CONT 07/09/24 16:44 .Q6H ONE 1 MG/MIN Amiodarone HCl/Dextrose 360 mg in 200 mls @ 16.667 mls/hr 07/09/24 16:45 Nexterone 360 Mg/D5w 200 Ml IV CONT .Q12H SHAKILA 0.5 MG/MIN Insulin Aspart 2 - 5 units 07/05/24 18:00 07/09/24 07:07 Insulin Aspart (*Bkc) 100 Units/Ml SUB-Q Not Given Q6HR [facility] Protocol Levothyroxine Sodium 100 mcg 07/06/24 06:30 07/09/24 06:13 Levothyroxine Sodium 100 Mcg Tablet FEED TUBE 100 mcg DAILY@0630 SHAKILA Administration Metoprolol Tartrate 25 mg 07/09/24 11:00 Metoprolol Tartrate 25 Mg Tablet PO Q6H SHAKILA Morphine Sulfate 2 mg 07/08/24 08:18 07/09/24 09:02 Morphine Sulfate (*Crx) 2 Mg/Ml Inj IV PUSH 2 mg Q2H PRN Administration Pain Rated 7-10 Pantoprazole Sodium 40 mg 07/06/24 09:00 07/09/24 09:02 Pantoprazole Sodium Iv 40 Mg Vial IV PUSH 40 mg QAM SHAKILA Administration Pregabalin 150 mg 07/07/24 21:00 07/09/24 09:01 Pregabalin (*Crx) 75 Mg Capsule FEED TUBE 150 mg Q12HR SHAKILA Administration Quetiapine Fumarate 25 mg 07/09/24 21:00 Quetiapine Fumarate 25 Mg Tablet PO HS SHAKILA Rosuvastatin Calcium 40 mg 07/06/24 21:00 07/08/24 20:16 Rosuvastatin 20 Mg Tablet FEED TUBE 40 mg HS SHAKILA Administration Sodium Chloride 10 ml 07/08/24 14:00 07/09/24 06:13 Central Line Flush IV PUSH 10 ml Q8HR SHAKILA Administration Sodium Chloride 20 ml 07/08/24 10:15 Central Line Flush IV PUSH PRN PRN after blood draws Trimethobenzamide HCl 200 mg 07/06/24 18:21 07/09/24 02:18 Trimethobenzamide Hcl 200 Mg/2 Ml Vial IM 200 mg Q6H PRN Administration Nausea And Vomiting Radiology Results: ITS Impressions Abdomen X-Ray 07/07/24 06:26 Impression: NG tube remains in satisfactory position. Right-sided central venous line tip is in the right atrium or possibly just in the IVC. Consider retraction. Head CT 07/07/24 06:36 Impression: No significant abnormality seen. Case discussed with GINI العلي at 6:38 AM on 07/07/2024. Head/Neck CTA 07/07/24 06:46 Impression: High-grade, 95% stenoses at the proximal internal carotid arteries bilaterally. Probable focal occlusion at the origin of the right external carotid artery with near immediate reconstitution. ADDENDUM: 07/07/24 0714 Extensive groundglass pulmonary consolidation in the visualized lungs suggest moderate to advanced pulmonary edema. Correlate clinically for pneumonia. Chest X-Ray 07/09/24 06:04 Impression: 1: Interval improvement of bilateral airspace disease, consistent with resolving edema. Labs Labs: Laboratory Results - last 24 hr 07/08/24 07/08/24 07/08/24 10:58 15:14 16:42 WBC RBC Hgb Hct MCV MCH MCHC RDW Plt Count MPV Puncture Site ABG pH ABG pCO2 ABG pO2 ABG PO2/FiO2 Ratio ABG HCO3 ABG O2 Saturation ABG O2 Content ABG Base Excess A-a Gradient Oxyhemoglobin Carboxyhemoglobin Methemoglobin Reduced Hemoglobin Total Hemoglobin O2 Delivery Device O2 Liters/Min FiO2 Sodium 143 Potassium 3.6 Chloride 110 H Carbon Dioxide 24 Anion Gap 9 BUN 23 H Creatinine 0.76 Estim Creat Clear Calc 49 Estimated GFR > 60 Glucose 100 POC Capillary Glucose 98 96 Calcium 8.9 Magnesium Total Bilirubin AST ALT Alkaline Phosphatase Total Protein Albumin 07/09/24 07/09/24 07/09/24 00:22 05:05 06:20 WBC 12.0 H RBC 3.65 L Hgb 10.6 L Hct 33.6 L MCV 92.1 MCH 29.0 MCHC 31.5 L RDW 16.9 H Plt Count 121 L MPV 11.1 H Puncture Site Right radial ABG pH 7.393 ABG pCO2 27.7 L ABG pO2 70.9 L ABG PO2/FiO2 Ratio 2.36 ABG HCO3 16.5 L ABG O2 Saturation 94.5 L ABG O2 Content 18.2 ABG Base Excess -6.8 A-a Gradient 110.5 Oxyhemoglobin 92.3 Carboxyhemoglobin 1.7 Methemoglobin 0.1 Reduced Hemoglobin 5.9 H Total Hemoglobin 14.0 O2 Delivery Device High flow therapy O2 Liters/Min 40.0 FiO2 30 Sodium 147 H Potassium 3.8 Chloride 111 H Carbon Dioxide 16 L Anion Gap 20 H BUN 28 H Creatinine 0.82 Estim Creat Clear Calc 45 Estimated GFR > 60 Glucose 142 H POC Capillary Glucose 97 Calcium 9.2 Magnesium 1.9 Total Bilirubin 1.2 AST 32 ALT 21 Alkaline Phosphatase 88 Total Protein 6.0 L Albumin 3.4 L
[2024-07-09] MEDS: METOPROLOL TARTRATE 25 MG TABLET PO ×2 (10:59→16:04)
[2024-07-09] MEDS: MEROPENEM 1 GM/NS 100 ML 1 GM/100 ML BAG IVPB ×2 (11:04→20:51)
[2024-07-09 11:31] LABS: Glucose Point of Care 162 mg/dl (65-105)
--- NOTE | 2024-07-09 13:29 | P.CDI_ITS ---
CDI Query Clarification Request Acute on chronic HF has been documented, please specify if acute on chronic CHF has been ruled in or ruled out. If ruled in please specify type of CHF. Please specify type of heart failure if known. Risk Factors: documented acute on chronic CHF. Clinical Indicators: BUN 254 CXR: Summary 1. Complete two-dimensional, color flow and Doppler transthoracic echocardiogram is performed. 2. Left ventricular systolic function is normal, estimated at 50-55%. 3. The left ventricular diastolic function is grade II diastolic dysfunction. 4. There is mild aortic valve calcification. 5. There is mild mitral valve regurgitation. 6. There is mild mitral valve calcification. 7. There is trace tricuspid valve regurgitation. 8. No pulmonary hypertension, estimated pulmonary arterial systolic pressure is 26 mmHg. 9. There is mild pulmonic regurgitation. 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
[2024-07-09] MEDS: AMIODARONE 360 MG/D5W 200 ML 360 MG/200 ML BAG 16.67 MG IV CONT (16:02)
[2024-07-09 17:44] LABS: Glucose Point of Care 196 mg/dl (65-105)
[2024-07-09] MEDS: QUEtiapine FUMARATE 25 MG TABLET PO (20:51)
[2024-07-09] MEDS: ROSUVASTATIN 20 MG TABLET 40 MG FEED TUBE (20:53)
[2024-07-09] MEDS: PHENYLEPHRINE HCL INJ 50 MG in DEXTROSE 5% IN WATER 250 ML/245 ML BAG 12 ML IV CONT (22:26)
[2024-07-10] VITALS (24 sets, daily range): BP systolic 76–114; BP diastolic 45–72; PULSE 76–93; RESP 20–41; TEMP 32.2–38.8; O2SAT 90–100
[2024-07-10 01:12] LABS: Glucose Point of Care 185 mg/dl (65-105)
[2024-07-10] MEDS: IPRATROPIUM 0.5 MG/ALBUTEROL SULFATE 2.5 MG AMPUL.NEB 3 ML INHALATION ×2 (01:56→07:37)
[2024-07-10] MEDS: AMIODARONE 360 MG/D5W 200 ML 360 MG/200 ML BAG 16.67 MG IV CONT (03:00)
[2024-07-10] MEDS: ACETAMINOPHEN ELIXIR 325 MG/10.15 ML UDC 650 MG PO (03:23)
[2024-07-10 03:34] LABS: Alveolar/Arterial O2 Gradient 325.3 mmHg; Base Excess ABG -14.4 mEq/l (+/-2.0); Carboxyhemoglobin 0.3 % THb (0-2.0); Fractional Inspired Oxygen 100 %; HCO3 ABG 9.4 mEq/l (22.0-26.0); Oxygen Content ABG 18.3 %vol (16.0-22.0); Oxygen Saturation ABG 99.8 % (95.0-100.0); Oxyhemoglobin 99.6 % THb (90.0-100.0); PO2 ABG 369.1 mmHg (80.0-100.0); PO2 FiO2 Ratio Arterial Blood 3.69 %; Reduced Hemoglobin 0.1 %THb (0-5.0); Total Hemoglobin 12.4 g/dL (12.0-18.0); pH ABG 7.321 (7.350-7.450)
[2024-07-10 03:37] LABS: Device NON-INVASIVE VENT; Modified Allen's Test Pass; PCO2 ABG 18.6 mmHg (35.0-45.0); Site Drawn LEFT RADIAL
[2024-07-10 03:38] LABS: Non-Invasive Expiratory Pressure 8 CMH2O; Non-Invasive Inspiratory Pressure 12 CMH2O; Non-Invasive Vent Rate 12 /MIN
[2024-07-10 03:50] LABS: Hematocrit 34.1 % (37.0-47.0); Hemoglobin 10.6 g/dL (12.0-15.0); Mean Corpuscular HGB Conc 31.1 g/dl (32-36); Mean Corpuscular Hemoglobin 29.1 pg (26-34); Mean Corpuscular Volume 93.7 fl (80-100); Mean Platelet Volume 11.6 fl (7.4-10.4); Platelet Count Result 163 k/mm3 (150-375); Red Blood Count 3.64 M/mm3 (4.2-5.4); Red Cell Distribution Width 17.5 % (11.5-14.5); White Blood Count 14.9 K/mm3 (4.5-10.0)
[2024-07-10] MEDS: SODIUM BICARBONATE 8.4% 50 MEQ/50 ML SYRINGE 100 MEQ IV PUSH (03:51)
[2024-07-10] MEDS: ALBUMIN HUMAN 5% 25 GM/500 ML BTL IV CONT (03:54)
[2024-07-10] MEDS: TRIMETHOBENZAMIDE HCL 200 MG/2 ML VIAL IM (03:55)
[2024-07-10 03:59] LABS: Phosphorus 5.8 mg/dL (2.5-4.5)
[2024-07-10 04:03] LABS: Albumin Level 3.5 g/dL (3.5-5.1); Alkaline Phosphatase 99 U/L (38-126); Anion Gap 24 mmol/L (4-12); Aspartate Amino Transferase 53 U/L (14-36); Bilirubin,Total 0.7 mg/dL (0.2-1.3); Blood Urea Nitrogen 39 mg/dL (7-17); Calcium 9.2 mg/dL (8.4-10.2); Carbon Dioxide 10 mmol/L (22-30); Chloride 105 mmol/L (98-107); Estimated CRCL calculation 19 ml/min; Estimated Glomerular Filt Rate 25; Glucose 149 mg/dL (65-110); Magnesium 2.1 mg/dL (1.6-2.3); Potassium 5.4 mmol/L (3.4-5.0); Sodium 139 mmol/L (137-145)
[2024-07-10 04:14] LABS: Alanine Aminotransferase 24 U/L (6-35)
[2024-07-10] MEDS: VASOPRESSIN INJ 100 UNITS in DEXTROSE 5% 95 ML IV CONT (04:30)
--- NOTE | 2024-07-10 04:52 | PC.NURSE ---
Spoke with of patient, Severo Kong; he wishes patient to be full DNR/DNI. Verified by Kesha Fang RN.
[2024-07-10] MEDS: PHENYLEPHRINE HCL INJ 50 MG in DEXTROSE 5% IN WATER 250 ML/245 ML BAG 54 ML IV CONT (05:00)
[2024-07-10] MEDS: CENTRAL LINE FLUSH 10 ML IV PUSH (05:31)
[2024-07-10] MEDS: VANCOMYCIN 750 MG/NS 250 ML 750 MG/250 ML BAG 250 MG IVPB (05:47)
--- NOTE | 2024-07-10 06:31 | PC.NURSE ---
Addendum entered by Laz Wheeler RN 07/10/24 07:56: Light colored fluid noted from Distal port upon aspiration, do not use distal port per Dr. Pardo. Original Note: Updated Dr. Pardo regarding central Line report, labs and status. Do not use distal port. Start Levophed per ICU Protocol, 1 amp calcium gluconate IVP, 1amp Sodium Bicarbonate IV push, 1 Liter LR Bolus.
[2024-07-10] MEDS: MORPHINE SULFATE (*CRX) 2 MG/ML INJ IV PUSH (06:32)
[2024-07-10] MEDS: SODIUM BICARBONATE 8.4% 50 MEQ/50 ML SYRINGE IV PUSH (06:44)
[2024-07-10] MEDS: LACTATED RINGERS 1,000 ML 999 ML IV CONT (06:45)
[2024-07-10] MEDS: NOREPINEPHRINE 8 MG/D5W 250 ML 8 MG/250 ML BAG 9.38 MG IV CONT (06:53)
[2024-07-10] MEDS: CALCIUM GLUC 1,000 MG/NS 50 ML 1,000 MG/50 ML BAG 100 MG IVPB (07:00)
--- NOTE | 2024-07-10 08:20 | PC.NURSE ---
0310: Call placed to Katherine BRANTLEY due to increased WOB. 0315: [employer] at bedside. Decision to place pt on BiPap made. ABG drawn early. RN called radiology charge to obtain morning CXR early. 0335: RN called Dr. Pardo to report critical ABG. Orders received. 0410: and Katherine BRANTLEY called to bedside due to patient's SPO2 rapidly dropping. Patient's lowest SPO2 observed by this RN was 39%. Laz, charge nurse, called to bedside. RN bagging patient. Staff preparing to intubate. GREG Rebolledo contacted patient's family. Family changed patient's code status to DNR/DNI and reported they were on their way. Patient's SPO2 normalized. Patient placed back on BiPap. FiO2 100%. 0430: RN attempted to draw ordered labs from the distal port of patient's central line. Upon aspiration,yellow,serous fluid erica back. RN clamped all other lines and again aspirated the distal port. Again, serous fluid erica back. RN called Laz to bedside. A total of 50 ml were drawn while staff attempted to troubleshoot the problem. Attempts proved fruitless. RN alerted Laz whom called to bedside to evaluate fluid. Other ports had blood return. reviewed CXR and instructed RN to not use the distal port. RN place a piece of tape over port and reported issue to day shift RNJohanne. notified of abnormal fluid by Laz.
[2024-07-10] MEDS: MORPHINE SULFATE INJ (*CRX) 10 MG/ML AMP 5 MG IV PUSH (09:03)
[2024-07-10] MEDS: LORazepam INJ (*CRX) 2 MG/ML VIAL 1 MG IV PUSH (09:04)
--- NOTE | 2024-07-10 09:19 | P.PNINT_ITS ---
Progress Note: A&P Assessment and Plan (1) Acute respiratory failure with hypoxia: Code(s): J96.01 - Acute respiratory failure with hypoxia Status: Acute Assessment and Plan: Acute respiratory failure secondary to pneumonia which is likely aspiration CT scan chest x-ray and ABG reviewed 07/08 Patient was extubated yesterday after a successful weaning trial. Post that patient was tachypneic and was placed on BiPAP for work of breathing and respiratory support BiPAP had to be discontinued due to nausea. Now she has Vapotherm at 40 L and 30% FiO2 will try to wean her off to nasal cannula She does have some tachypnea but ABG shows hyperventilation and patient does not appear in distress with no use of accessory muscle 07/08 CT chest confirmed patchy extensive ground-glass consolidation in both lungs. She was given additional dose of laced 07/09 will wean Vapotherm to nasal cannula. Continue incentive spirometry if patient can do and EzPAP 07/10 patient placed back on BiPAP overnight (2) Septic shock: Code(s): A41.9 - Sepsis, unspecified organism; R65.21 - Severe sepsis with septic shock Status: Acute Assessment and Plan: Septic shock secondary to aspiration pneumonia and UTI Continue cefepime and Flagyl. Discontinue vancomycin MRSA screen negative, blood and urine cultures have been sent and are pending patient does have E coli history which was not ESBL Patient was restarted on vasopressors overnight and is on vasopressin [place]-Synephrine and Levophed infusion (3) Abdominal pain: Code(s): R10.9 - Unspecified abdominal pain Status: Acute Assessment and Plan: Complains of nonspecific abdominal pain. Also has chronic nausea vomit History of bowel obstruction and surgery Repeat CT scan of the chest abdomen pelvis did not show any obstruction 07/09 Clamp NG tube. Trial of clear liquid diet General surgery following Monitor p.o. intake (4) Pneumonia: Code(s): J18.9 - Pneumonia, unspecified organism Status: Acute Assessment and Plan: See above (5) Hyperlipidemia: Code(s): E78.5 - Hyperlipidemia, unspecified Status: Acute Assessment and Plan: Rosuvastatin (6) Diabetes mellitus: Code(s): E11.9 - Type 2 diabetes mellitus without complications Status: Acute Assessment and Plan: Sliding scale insulin (7) Nausea & vomiting: Code(s): R11.2 - Nausea with vomiting, unspecified Status: Acute Assessment and Plan: See above (8) UTI (urinary tract infection): Qualifiers: Hematuria presence: with hematuria Urinary tract infection type: acute cystitis Qualified Code(s): N30.01 - Acute cystitis with hematuria Code(s): N39.0 - Urinary tract infection, site not specified Status: Acute Assessment and Plan: Antibiotics as above (9) Elevated troponin: Code(s): R79.89 - Other specified abnormal findings of blood chemistry Status: Acute Assessment and Plan: Patient presented with elevated troponin which peaked at 3.1 and now is trending down This appears to be type 2 non STEMI likely secondary to respiratory failure and septic shock. EKG was done and does not show any signs of ischemia. Patient did not complain of any chest pain at the time of presentation Continue aspirin and statin Echo as below Cardiology following Continue therapeutic dose Lovenox as per Cardiology recommended Summary 1. Complete two-dimensional, color flow and Doppler transthoracic echocardiogram is performed. 2. Left ventricular systolic function is normal, estimated at 50-55%. 3. The left ventricular diastolic function is grade II diastolic dysfunction. 4. There is mild aortic valve calcification. 5. There is mild mitral valve regurgitation. 6. There is mild mitral valve calcification. 7. There is trace tricuspid valve regurgitation. 8. No pulmonary hypertension, estimated pulmonary arterial systolic pressure is 26 mmHg. 9. There is mild pulmonic regurgitation. (10) Atrial fibrillation: Code(s): I48.91 - Unspecified atrial fibrillation Status: Acute Assessment and Plan: Patient has been in and out of AFib with ventricular rate is mostly controlled. Off vasopressor Off amiodarone infusion and on p.o. amiodarone 07/09 amiodarone infusion was resume Continue Lovenox (11) Electrolyte abnormality: Code(s): E87.8 - Other disorders of electrolyte and fluid balance, not elsewhere classified Status: Acute Assessment and Plan: Potassium replacement ordered (12) Anisocoria: Code(s): H57.02 - Anisocoria Status: Acute Assessment and Plan: Left pupil is larger than right but reactive to light Patient has had shingles in around left eye and chronic pain. She has had bilateral eye surgeries. 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 Probable focal occlusion at the origin of the right external carotid artery with near immediate reconstitution. Plan DVT prophylaxis -Lovenox Stress ulcer prophylaxis -PPI Nutrition -start clear liquid Code Status -patient's confirms patient code status to DNR. 07/07 I spoke to patient's and daughter at bedside and updated them with patient's status and answered all their questions. 07/08 I spoke to patient's and updated him with patient's current status and treatment plan. I answered all his questions Case discussed with Cardiology 07/10 considering patient's overnight deterioration with worsening shock renal failure and respiratory status I had a meeting with patient's and 2 daughters in the conference room in presence of patient's nurse Johanne. I updated them with patient's status. Patient is DNR DNI. All 3 family members in agreement that patient has had very poor quality of life for last few years after her but abdominal surgeries. She has been dealing with chronic nerve pain in her face and abdominal pain. She has had chronic nausea vomiting. She has multiple times expressed to her family members that she is suffering and does no t want any aggressive treatment or resuscitation measures. Patient was DNR DNI when she came in but the elected to proceed with intubation to give her an opportunity to get better. Considering current situation and deterioration the family feels the patient is now suffering she is on BiPAP when she does not want to be on and her pain is not adequately controlled. They do not believe the patient would want to continue like this. I discussed options of palliative/comfort care. They all in agreement and have decided, in accordance with pt's wishes, to discontinue all medical therapy and institute comfort measures only. I explained them that I will use opioids, anxiolytics and other agents on as needed basis to promote comfort and discontinue all medical therapy, lab testing and invasive monitoring. Patient will eventually . They all verbalized understanding and agreed to proceed. I have placed orders for comfort care. I have also spoken to patient's hospitalist who is in agreement with the plan. Total time spent 35 minutes Subjective Date/time seen: 07/10/24 Overnight patient deteriorated with drop in her urine output and blood pressure. Patient was given IV fluid bolus and then started on [place]-Synephrine followed by vasopressin and then Levophed. ABG showed metabolic acidosis with respiratory compensation leading to hyperventilate. Patient was given bicarb and later placed back on BiPAP due to increased work of breathing. She denied any nausea vomiting at that time. Patient after discussion with the family was made DNR DNI by her overnight. Her urine output had also decreased. Lab work in the morning showed creatinine increased to 2.0 When I evaluated the patient she was awake although confused on BiPAP. She she denied any abdominal pain chest pain feeling of shortness of breath or nausea at that time. Full review of system was not obtainable due to condition. Sinus tachycardia on the monitor. Febrile overnight Review of Systems Review of Systems: ROS unobtainable: Yes unobtainable due to medical condition and unobtainable due to mental status Exam Narrative: General: Pt is alert awake Lungs/Chest: Trachea central Coarse BS B/L, No crackles or wheezing. Mild tachypnea but no respiratory distress or use of accessory muscle Cardiac: RRR. Normal S1 S2. No murmurs Circulation: Pedal pulses are intact and symmetrical. Abdomen: Present bowel sounds. Soft. Mild diffuse tenderness to palpation ND. No guarding. NG tube in place with bilious output Extremities: No clubbing, cyanosis or edema. Warm : Jones in place Neurologic: AO x2. Left pupil is enlarged but reactive to light. Patient's states the patient has had eye surgeries and was side and also had multiple injections for trigeminal nerve pain on the left side and had shingles Objective Data Vital Signs Vital Signs: Vital Signs - 24 hr 07/09/24 10:00 07/09/24 10:00 07/09/24 10:39 Temperature 37.2 C Pulse Rate 127 H 128 H 138 H Respiratory Rate 25 H Blood Pressure 125/78 125/78 Pulse Oximetry 93 Oxygen Delivery Oxygen Flow Rate 07/09/24 10:51 07/09/24 10:59 07/09/24 12:00 Temperature 37.4 C Pulse Rate 126 H 127 H 95 Respiratory Rate 26 H Blood Pressure 131/68 135/77 Pulse Oximetry 91 Oxygen Delivery Oxygen Flow Rate 07/09/24 12:00 07/09/24 12:00 07/09/24 12:04 Temperature Pulse Rate 89 92 Respiratory Rate 20 Blood Pressure Pulse Oximetry 92 93 Oxygen Delivery Nasal Cannula Nasal Cannula Oxygen Flow Rate 3 3 07/09/24 13:15 07/09/24 13:15 07/09/24 13:25 Temperature Pulse Rate 82 82 80 Respiratory Rate 20 20 25 H Blood Pressure Pulse Oximetry 95 Oxygen Delivery Nasal Cannula Oxygen Flow Rate 3 07/09/24 14:00 07/09/24 14:00 07/09/24 15:44 Temperature Pulse Rate 86 83 92 Respiratory Rate 22 H 25 H Blood Pressure 177/62 H Pulse Oximetry 100 93 Oxygen Delivery Nasal Cannula Oxygen Flow Rate 3 07/09/24 16:00 07/09/24 16:00 07/09/24 16:00 Temperature 38.2 C H Pulse Rate 95 91 Respiratory Rate 26 H Blood Pressure 121/69 Pulse Oximetry 92 93 Oxygen Delivery Nasal Cannula Oxygen Flow Rate 3 07/09/24 16:02 07/09/24 16:04 07/09/24 16:04 Temperature 38.3 C H Pulse Rate 95 92 Respiratory Rate Blood Pressure 121/69 Pulse Oximetry Oxygen Delivery Oxygen Flow Rate 07/09/24 17:38 07/09/24 18:00 07/09/24 18:00 Temperature 39.2 C H 39.3 C H Pulse Rate 97 100 Respiratory Rate 23 H Blood Pressure 127/80 Pulse Oximetry 95 Oxygen Delivery Oxygen Flow Rate 07/09/24 18:00 07/09/24 18:05 07/09/24 18:50 Temperature 38.2 C H 39.1 C H Pulse Rate 97 Respiratory Rate Blood Pressure 127/80 Pulse Oximetry Oxygen Delivery Oxygen Flow Rate 07/09/24 19:55 07/09/24 19:56 07/09/24 20:00 Temperature Pulse Rate 97 97 93 Respiratory Rate 26 H 26 H Blood Pressure 112/85 Pulse Oximetry 94 Oxygen Delivery Nasal Cannula Oxygen Flow Rate 3 07/09/24 20:00 07/09/24 20:00 07/09/24 20:00 Temperature 38.6 C H Pulse Rate 95 95 Respiratory Rate 22 H Blood Pressure 112/85 Pulse Oximetry 90 90 Oxygen Delivery Nasal Cannula Oxygen Flow Rate 4 07/09/24 20:06 07/09/24 20:52 07/09/24 21:50 Temperature 38.3 C H 37.9 C H Pulse Rate 99 Respiratory Rate 26 H Blood Pressure Pulse Oximetry Oxygen Delivery Oxygen Flow Rate 07/09/24 22:00 07/09/24 22:00 07/09/24 22:00 Temperature 37.9 C H Pulse Rate 90 90 90 Respiratory Rate 23 H Blood Pressure 77/58 L 77/58 L Pulse Oximetry 92 Oxygen Delivery Oxygen Flow Rate 07/09/24 22:26 07/09/24 22:45 07/09/24 23:00 Temperature Pulse Rate 88 86 88 Respiratory Rate Blood Pressure 67/45 L 87/66 L 70/53 L Pulse Oximetry Oxygen Delivery Oxygen Flow Rate 07/10/24 00:00 07/10/24 00:00 07/10/24 00:00 Temperature Pulse Rate 89 86 89 Respiratory Rate Blood Pressure 90/55 L 90/55 L Pulse Oximetry Oxygen Delivery Oxygen Flow Rate 07/10/24 00:00 07/10/24 00:00 07/10/24 01:03 Temperature 38.6 C H Pulse Rate 89 90 Respiratory Rate 25 H Blood Pressure 90/55 L Pulse Oximetry 94 94 Oxygen Delivery High Flow Nasal Cannula Oxygen Flow Rate 7 07/10/24 01:58 07/10/24 02:00 07/10/24 02:00 Temperature Pulse Rate 93 93 93 Respiratory Rate 29 H Blood Pressure 91/45 L 91/56 L Pulse Oximetry Oxygen Delivery Oxygen Flow Rate 07/10/24 02:00 07/10/24 02:00 07/10/24 02:30 Temperature 38.8 C H Pulse Rate 93 93 90 Respiratory Rate 30 H Blood Pressure 91/56 L 98/72 L Pulse Oximetry 96 Oxygen Delivery Oxygen Flow Rate 07/10/24 02:45 07/10/24 03:00 07/10/24 03:00 Temperature Pulse Rate 89 89 89 Respiratory Rate Blood Pressure 84/51 L 85/54 L 85/54 L Pulse Oximetry Oxygen Delivery Oxygen Flow Rate 07/10/24 03:00 07/10/24 03:00 07/10/24 03:00 Temperature 32.2 C L Pulse Rate 90 90 Respiratory Rate 41 H Blood Pressure 85/54 L Pulse Oximetry 90 94 Oxygen Delivery High Flow Nasal Cannula Oxygen Flow Rate 7 07/10/24 03:23 07/10/24 03:30 07/10/24 03:39 Temperature 38.8 C H Pulse Rate 86 87 Respiratory Rate 34 H Blood Pressure 76/57 L Pulse Oximetry 100 Oxygen Delivery BiPAP Oxygen Flow Rate 07/10/24 03:45 07/10/24 04:00 07/10/24 04:00 Temperature Pulse Rate 88 93 92 Respiratory Rate Blood Pressure 80/53 L 91/67 L Pulse Oximetry Oxygen Delivery Oxygen Flow Rate 07/10/24 04:00 07/10/24 04:15 07/10/24 04:30 Temperature 33.3 C L 38.8 C H Pulse Rate 92 87 Respiratory Rate 27 H Blood Pressure 91/61 L 77/57 L Pulse Oximetry 100 Oxygen Delivery Oxygen Flow Rate 07/10/24 05:00 07/10/24 05:00 07/10/24 05:30 Temperature Pulse Rate 84 84 81 Respiratory Rate Blood Pressure 96/66 L 96/66 L Pulse Oximetry Oxygen Delivery Oxygen Flow Rate 07/10/24 06:00 07/10/24 06:00 07/10/24 06:00 Temperature Pulse Rate 78 78 78 Respiratory Rate Blood Pressure 78/61 L 78/61 L 78/61 L Pulse Oximetry Oxygen Delivery Oxygen Flow Rate 07/10/24 06:00 07/10/24 06:00 07/10/24 06:30 Temperature 37.5 C Pulse Rate 78 78 78 Respiratory Rate 31 H 27 H Blood Pressure 78/61 L Pulse Oximetry 94 100 Oxygen Delivery BiPAP Oxygen Flow Rate 07/10/24 06:42 07/10/24 06:53 07/10/24 07:37 Temperature Pulse Rate 77 80 76 Respiratory Rate 20 Blood Pressure 81/51 L Pulse Oximetry Oxygen Delivery Oxygen Flow Rate 07/10/24 07:41 07/10/24 07:46 Temperature Pulse Rate 76 77 Respiratory Rate 20 20 Blood Pressure Pulse Oximetry 100 Oxygen Delivery BiPAP Oxygen Flow Rate Intake/Output Intake/Output: Intake & Output 07/07/24 07/08/24 07/09/24 07/10/24 23:59 23:59 23:59 23:59 Intake Total 866.5 400 1247.7 409.6 Output Total 2300 2650 850 75 Balance -1433.5 -2250 397.7 334.6 Meds/Results Medications: Active Medications Generic Name Dose Route Start Last Admin Trade Name Freq PRN Reason Stop Dose Admin Acetaminophen 650 mg 07/07/24 12:10 07/10/24 03:23 Acetaminophen Elixir 325 Mg/10.15 Ml Udc PO 650 mg Q6H PRN Administration Mild Pain (1-3) or Fever Albuterol/Ipratropium 3 ml 07/06/24 14:00 07/10/24 07:37 Ipratropium 0.5 Mg/Albuterol Sulfate 2.5 Mg Ampul.Neb 3 Ml INHALATION 3 ml Q6HRT SHAKILA Administration Amiodarone HCl 200 mg 07/08/24 17:00 07/09/24 09:01 Amiodarone Hcl 200 Mg Tablet PO 200 mg BID SHAKILA Administration Artificial Tears 1 drop 07/07/24 12:23 07/09/24 10:00 Artificial Tears Ophth Soln 15 Ml Bottle EACH EYE 1 drop QID PRN Administration Dry Eye(s) Aspirin 325 mg 07/06/24 08:35 07/09/24 09:01 Aspirin 325 Mg Tablet FEED TUBE 325 mg DAILY@0800 SHAKILA Administration Atropine Sulfate 1 - 2 drop 07/10/24 07:54 Atropine Sulfate 1% Ophth Soln 5 Ml Bottle SUBLINGUAL Q4H PRN Secretions Dextrose 12.5 gm 07/05/24 17:16 Dextrose 50% 25 Gm/50 Ml Syringe IV PUSH PRN PRN Hypoglycemia Protocol Enoxaparin Sodium 60 mg 07/06/24 21:00 07/09/24 20:53 Enoxaparin 60 Mg/0.6 Ml Syringe SUB-Q 60 mg Q12HR SHAKILA Administration Glucagon 1 mg 07/05/24 17:16 Glucagon For Inj 1 Mg Vial IM PRN PRN Hypoglycemia Protocol Glucose 15 gm 07/05/24 17:16 Glucose Oral Gel 15 Gm Of Glucse In 37.5 Gm Tube PO PRN PRN Hypoglycemia Protocol Dextrose 1,000 mls @ 100 mls/hr 07/05/24 17:16 Dextrose 5% 1,000 Ml IVPB PRN PRN Hypoglycemia Protocol Meropenem 1 gm in 100 mls @ 200 mls/hr 07/09/24 10:30 07/09/24 22:45 IVPB Infused Q12HR SHAKILA Infusion Amiodarone HCl/Dextrose 360 mg in 200 mls @ 0 mls/hr 07/09/24 16:45 07/10/24 06:42 Nexterone 360 Mg/D5w 200 Ml IV CONT 0 mg/min .Q0M SHAKILA 0 mls/hr Infusion 0 MG/MIN Phenylephrine HCl 50 mg/ 250 ml in 250 mls @ 24 mls/hr 07/09/24 22:10 07/10/24 06:00 Dextrose IV CONT 180 mcg/min .[id number] SHAKILA 54 mls/hr Titration Protocol 80 MCG/MIN Vasopressin 100 units/ 100 mls @ 2.4 mls/hr 07/10/24 04:25 07/10/24 06:00 Dextrose IV CONT 0.04 units/min .[id number] SHAKILA 2.4 mls/hr Titration Protocol 0.04 UNITS/MIN Norepinephrine Bitartrate 8 mg in 250 mls @ 9.375 mls/hr 07/10/24 06:35 07/10/24 06:53 Levophed 8 Mg/D5w 250 Ml IV CONT 5 mcg/min .Q24H SHAKILA 9.38 mls/hr Administration Protocol 5 MCG/MIN Insulin Aspart 2 - 5 units 07/05/24 18:00 07/10/24 05:32 Insulin Aspart (*Bkc) 100 Units/Ml SUB-Q Not Given Q6HR [facility] Protocol Levothyroxine Sodium 100 mcg 07/06/24 06:30 07/10/24 05:53 Levothyroxine Sodium 100 Mcg Tablet FEED TUBE Not Given DAILY@0630 [facility] Lorazepam 2 mg 07/10/24 07:54 Lorazepam Inj (*Crx) 2 Mg/Ml Vial IV PUSH Q1H PRN Anxiety/Comfort Metoprolol Tartrate 25 mg 07/09/24 11:00 07/10/24 05:30 Metoprolol Tartrate 25 Mg Tablet PO Not Given Q6H [facility] Morphine Sulfate 2 mg 07/08/24 08:18 07/10/24 06:32 Morphine Sulfate (*Crx) 2 Mg/Ml Inj IV PUSH 2 mg Q2H PRN Administration Pain Rated 7-10 Morphine Sulfate 4 mg 07/10/24 07:54 Morphine Sulfate (*Crx) 2 Mg/Ml Inj IV PUSH Q30M PRN COMFORT Pantoprazole Sodium 40 mg 07/06/24 09:00 07/09/24 09:02 Pantoprazole Sodium Iv 40 Mg Vial IV PUSH 40 mg QAM SHAKILA Administration Pregabalin 150 mg 07/07/24 21:00 07/09/24 20:51 Pregabalin (*Crx) 75 Mg Capsule FEED TUBE 150 mg Q12HR SHAKILA Administration Quetiapine Fumarate 25 mg 07/09/24 21:00 07/09/24 20:51 Quetiapine Fumarate 25 Mg Tablet PO 25 mg HS [facility] Administration Rosuvastatin Calcium 40 mg 07/06/24 21:00 07/09/24 20:53 Rosuvastatin 20 Mg Tablet FEED TUBE 40 mg HS SHAKILA Administration Sodium Chloride 10 ml 07/08/24 14:00 07/10/24 05:31 Central Line Flush IV PUSH 10 ml Q8HR SHAKILA Administration Sodium Chloride 20 ml 07/08/24 10:15 Central Line Flush IV PUSH PRN PRN after blood draws Trimethobenzamide HCl 200 mg 07/06/24 18:21 07/10/24 03:55 Trimethobenzamide Hcl 200 Mg/2 Ml Vial IM 200 mg Q6H PRN Administration Nausea And Vomiting Vancomycin HCl 1 each 07/10/24 07:26 Vancomycin For Acute Kidney Injury IVPB PRN PRN Vancomycin Protocol Radiology Results: ITS Impressions Abdomen X-Ray 07/07/24 06:26 Impression: NG tube remains in satisfactory position. Right-sided central venous line tip is in the right atrium or possibly just in the IVC. Consider retraction. Head CT 07/07/24 06:36 Impression: No significant abnormality seen. Case discussed with GINI العلي at 6:38 AM on 07/07/2024. Head/Neck CTA 07/07/24 06:46 Impression: High-grade, 95% stenoses at the proximal internal carotid arteries bilaterally. Probable focal occlusion at the origin of the right external carotid artery with near immediate reconstitution. ADDENDUM: 07/07/24 0714 Extensive groundglass pulmonary consolidation in the visualized lungs suggest moderate to advanced pulmonary edema. Correlate clinically for pneumonia. Chest X-Ray 07/10/24 05:46 Impression: 1: Interval progression of interstitial edema. Labs Labs: Laboratory Results - last 24 hr 07/09/24 07/09/24 07/10/24 11:15 17:34 01:05 WBC RBC Hgb Hct MCV MCH MCHC RDW Plt Count MPV Puncture Site ABG pH ABG pCO2 ABG pO2 ABG PO2/FiO2 Ratio ABG HCO3 ABG O2 Saturation ABG O2 Content ABG Base Excess A-a Gradient Oxyhemoglobin Carboxyhemoglobin Methemoglobin Reduced Hemoglobin Total Hemoglobin O2 Delivery Device O2 Liters/Min Vent Rate FiO2 Expiratory Pressure Inspiratory Pressure Sodium Potassium Chloride Carbon Dioxide Anion Gap BUN Creatinine Estim Creat Clear Calc Estimated GFR Glucose POC Capillary Glucose 162 H 196 H 185 H Calcium Phosphorus Magnesium Total Bilirubin AST ALT Alkaline Phosphatase Total Protein Albumin 07/10/24 07/10/24 03:26 03:45 WBC 14.9 H RBC 3.64 L Hgb 10.6 L Hct 34.1 L MCV 93.7 MCH 29.1 MCHC 31.1 L RDW 17.5 H Plt Count 163 MPV 11.6 H Puncture Site Left radial ABG pH 7.321 L ABG pCO2 18.6 L* ABG pO2 369.1 H ABG PO2/FiO2 Ratio 3.69 ABG HCO3 9.4 L ABG O2 Saturation 99.8 ABG O2 Content 18.3 ABG Base Excess -14.4 A-a Gradient 325.3 Oxyhemoglobin 99.6 Carboxyhemoglobin 0.3 Methemoglobin 0.0 Reduced Hemoglobin 0.1 Total Hemoglobin 12.4 O2 Delivery Device Non-invasive vent O2 Liters/Min Not Reportable Vent Rate 12 FiO2 100 Expiratory Pressure 8 Inspiratory Pressure 12 Sodium 139 Potassium 5.4 H Chloride 105 Carbon Dioxide 10 L Anion Gap 24 H BUN 39 H D Creatinine 2.00 H Estim Creat Clear Calc 19 Estimated GFR 25 L Glucose 149 H POC Capillary Glucose Calcium 9.2 Phosphorus 5.8 H Magnesium 2.1 Total Bilirubin 0.7 AST 53 H ALT 24 Alkaline Phosphatase 99 Total Protein 7.0 Albumin 3.5 Quality VTE Prophylaxis VTE prophylaxis: pharmacologic ordered
--- NOTE | 2024-07-10 09:42 | P.DN_ITS ---
Discharge Summary Date and Time Date of : 07/10/24 Time of : 09:26 Provider Name of Provider That Pronounced: Maritza NUR Probable Cause of Probable Cause of : Septic shock and renal failure Summary Hospital Course: 73-year-old female with history of shingles face, diabetes, hypothyroidism, hypertension, breast cancer, and MGUS presents to the hospital with fever 102.4 and shortness of breath. HPI is limited due to patient being intubated emergently in the ED for respiratory failure. Per the the patient was complaining of severe back pain yesterday but no respiratory symptoms. He states that she was able to do laundry and chores. This morning around 8:00 a.m. she woke up and went to bathroom and when she came back from the bathroom she had vomited into the trash can then laid back in bed. He states about an hour later she was lying in bed vomiting while lying on her back he tried roll her to her side. And then call 911 due to her having trouble breathing. Per EMS patient's SpO2 was 70% she is placed on non-rebreather for transportation. Upon arrival patient was on 15 L non-rebreather with SpO2 in the low 90s and respiratory rate of 40 so she was emergently intubated. ABG after intubation is adequate, sodium is 149, potassium 2.9, lactic acid of 3.5, calcium of 8.1, phosphorus at 1.7, magnesium 1.5, baseline troponin 0.747 with EKG showing sinus tachycardia with occasional PVCs, T-wave abnormality rate 117 QTC 611 and 2 hour troponin 2.270 with EKG pending. UA shows negative for nitrates, 1+ leukocyte esterase, influenza a B, COVID and RSV negative. In the ED the patient was given IV Flagyl, vancomycin, 2 g magnesium, 20 millimoles of potassium phosphate. Blood cultures pending. She will be admitted to the ICU. Patient was still hypotensive after sepsis bolus a central line was placed and patient was started on levo. I assumed care today(07/10). Discussed with automobile insurance claim examiner who reported patient family opted comfort care. I provided care for the patient on previous admission. Patient had multiple abdominal surgeries and chronic facial pain. During last admission her and the patient were so pleasant and had multiple interesting conversation during daily encounters. Unfortunately patient in this admission unable to recover from her worsening shock renal failure ,respiratory status and other comorbid conditions. Patient at 9.26 am on 07/10/2024.
== END 2024-07-10 09:26 | disposition expired | DRG 871 ==
LOC: ANHED 14:26 → ANHICU 16:49
PROVIDERS: Internal Medicine; Internal Medicine Interventional Cardiology; Nurse Practitioner Gerontology; Physician Assistant; Admitting Provider Internal Medicine; Emergency Provider Emergency Medicine; PCP Student in an Organized Health Care Education/Training Program; Visit Provider General Practice
DX: A41.9 Sepsis, unspecified organism (principal); I21.A1 Myocardial infarction type 2; J18.9 Pneumonia, unspecified organism; I50.33 Acute on chronic diastolic (congestive) heart failure; J96.01 Acute respiratory failure with hypoxia; J69.0 Pneumonitis due to inhalation of food and vomit; R65.21 Severe sepsis with septic shock; N39.0 Urinary tract infection, site not specified; I48.20 Chronic atrial fibrillation, unspecified; E87.20 Acidosis, unspecified; I65.23 Occlusion and stenosis of bilateral carotid arteries; I10 Essential (primary) hypertension; D47.2 Monoclonal gammopathy; D50.9 Iron deficiency anemia, unspecified; E87.6 Hypokalemia; E83.42 Hypomagnesemia; E83.39 Other disorders of phosphorus metabolism; E11.9 Type 2 diabetes mellitus without complications; E03.9 Hypothyroidism, unspecified; E78.5 Hyperlipidemia, unspecified; H57.02 Anisocoria; R79.89 Other specified abnormal findings of blood chemistry; Z20.822 Contact with and (suspected) exposure to COVID-19; Z85.3 Personal history of malignant neoplasm of breast; Z87.891 Personal history of nicotine dependence
CPT/HCPCS: 31500; 36415; 36556; 36600; 70450; 70496; 70498; 71045; 71250; 71260; 74176; 74177; 80048; 80053; 81001; 82375; 82805; 82948; 83050; 83605; 83690; 83735; 83880; 84100; 84443; 84484; 85018; 85025; 85027; 85610; 85730; 87040; 87045; 87086; 87186; 87427; 87449; 87493; 87637; 87641; 93005; 93306; 94002; 94003; 94640; 96361; 96365; 96367; 96375; 99291; A9270; C1751; J0282; J0612; J0613; J0692; J1171; J1650; J1836; J1940; J2060; J2185; J2250; J2270; J2371; J2470; J3010; J3250; J3370; J3475; J3480; J7030; J7050; J7060; J7120; P9045; P9047; Q9967